=== PATIENT | male | born 1945 | race Caucasian/White ===

== ENCOUNTER → 2016-09-09 | Outpatient (CLI) | payer BC ==
[~2016-09-09] MED LIST: ALL100 PO; COEN10CA5 PO; FRS/40 PO; GLUC10007 PO; LSN/10125 PO; NORT75CA2 PO; POLYSOL4 OP; POTA1080 PO; PREG1CAP70 PO; PRVC/20 PO; TAPE50TA5 PO; WARF10TA4 PO
[2016-09-09 14:53] LABS: BLOOD UREA NITROGEN 20 mg/dl (7-18); BUN/CREATININE RATIO 16.6 (10-20); CALCIUM 8.5 mg/dl (8.5-10.1); CARBON DIOXIDE 31 mmol/L (21-32); CHLORIDE 104 mmol/L (98-107); GLUCOSE 129 mg/dl (70-99); SODIUM 140 mmol/L (136-145)
== END | disposition home or self-care (01) ==
LOC: C.LAB 13:37
PROVIDERS: ATTEND Nurse Practitioner Adult Health
DX: N20.0 Calculus of kidney (principal); N20.1 Calculus of ureter

== ENCOUNTER → 2016-09-13 | Outpatient (CLI) | payer BC ==
--- NOTE | 2016-09-13 10:00 | DIAGNOSTIC IMAGING REPORT ---
CHEST CT WITHOUT CONTRAST CT DOSE: 675.94 mGycm HISTORY: Pain. Pulmonary nodule. 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 COMPARISON: 02/28/2016 FINDINGS: Stable pleural-based density anterior aspect right upper lung. Diameter of the root of of the aorta is unchanged at 4.6 cm at maximum. No significant hilar or mediastinal adenopathy. Mild right and to a lesser extent left basilar atelectatic change improved from the prior exam. No new or interval finding. IMPRESSION: 1. Stable distention root of the aorta at 4.6 cm. 2. Stable pleural-based density anterior aspect right upper lung. 3. Mild bibasilar atelectatic change considered stable. 4. No new interval or progressive process. Electronically signed by: Eddy Stewart M.D. 09/13/2016 9:58 AM Dictated Date/Time: 09/13/2016 9:50 AM
== END | disposition home or self-care (01) ==
LOC: C.CTS 09:11
PROVIDERS: ATTEND Internal Medicine Interventional Cardiology
DX: I77.810 Thoracic aortic ectasia (principal)

== ENCOUNTER → 2016-09-13 | Outpatient (CLI) | payer BC ==
--- NOTE | 2016-09-13 10:12 | DIAGNOSTIC IMAGING REPORT ---
CT OF THE ABDOMEN AND PELVIS WITHOUT CONTRAST CLINICAL HISTORY: Nephrolithiasis. COMPARISON STUDY: CT of the abdomen and pelvis February 28, 2016. TECHNIQUE: Axial images of the abdomen and pelvis were obtained without IV contrast. Images were reviewed in the axial, sagittal, and coronal planes. FINDINGS: The chest will be reported separately. Punctate bilateral renal calculi are more conspicuous on exam of February 28, 2016. There are no ureteral calculi. There is no hydronephrosis. Perinephric infiltration is unchanged. Evaluation of the remainder of the abdomen and pelvis is suboptimal on this unenhanced exam. There is fatty infiltration of the liver. The spleen, adrenal glands and pancreas are unremarkable. There is no lymphadenopathy. There is colonic diverticulosis without evidence for acute diverticulitis. There were postsurgical findings within the lumbosacral spine. There are no suspicious osseous lesions. IMPRESSION: 1. Punctate bilateral renal calculi which are more conspicuous on prior exam of February 28, 2016. No ureteral calculi or hydronephrosis. 2. Colonic diverticulosis without evidence of acute diverticulitis. Electronically signed by: Nino Oakes M.D. 09/13/2016 10:10 AM Dictated Date/Time: 09/13/2016 10:01 AM
== END | disposition home or self-care (01) ==
LOC: C.CTS 09:14
PROVIDERS: ATTEND Urology
DX: N20.0 Calculus of kidney (principal); K57.90 Diverticulosis of intestine, part unspecified, without perforation or abscess without bleeding; I77.810 Thoracic aortic ectasia

== ENCOUNTER 2020-07-08 09:51 | Inpatient (IN) ==
[2020-07-08] MEDS ORDERED: ONDANSETRON INJ 2 MG/ML 2 ML VIAL IV STA (10:21)
[2020-07-08] MEDS ORDERED: SODIUM CHLORIDE 0.9% 1000ML 1,000 ML IV SCH (10:30)
--- NOTE | 2020-07-08 10:42 | Emergency Department Note ---
History of Present Illness General Chief Complaint: Shortness of Breath/Dyspnea Stated Complaint: COVID +,SOB Time Seen by Provider: 07/08/20 10:11 Source: patient Mode of arrival: ambulatory Limitations: no limitations History of Present Illness Provider Complaint: shortness of breath Onset (ago): day(s) (10) Severity: moderate Consistency/Duration: + constant Maximum Pain Intensity: 6 Current Pain Intensity: 6 Relieved By: + oxygen and + upright position Exacerbated By: + other (heat) Context: + recent illness (Covid-19 diagnosis 06/30/2020) Known history of: PE Associated symptoms: + cough and + nausea/vomiting Treatment prior to arrival: none HPI Narrative: This 74-year-old male patient presents to the emergency department today for evaluation of "I just cannot kick this Covid". The patient states he developed fever, cough, body aches, shortness of breath on 06/28/2020. He states he was seen here on 06/30 for evaluation of his symptoms and diagnosed with COVID-19. He states he was sent home with a pulse oximeter, albuterol inhaler, and azithromycin. He completed the course of antibiotics and continues to feel short of breath with body aches and nausea. He states his keeps the house very warm and this seems to be flaring up his symptoms. When he is in the cool air, the symptoms improve. He denies any specific pain, but does rep ort nausea and generalized abdominal discomfort. No diarrhea or constipation. He does have a decreased appetite and has been having difficulty drinking enough fluids. He denies any headache or dizziness. No hemoptysis. He does have history of PE and is on warfarin. His last INR completed last week was 1.6. He did have an adjustment made on 07/06/2020 by [facility] where he was to skip his 7.5 mg dose of warfarin. Related Data Home oxygen amount: none Home Medications Medication Instructions Recorded Confirmed Type lisinopril-hydrochlorothiazide 1 tab PO QAM #0 tab 08/31/12 07/08/20 History peg 400-propylene glycol [Systane 1 drp OPHTHALMIC (EYE) QID PRN #0 02/28/16 07/08/20 History (propylene glycol)] ml pravastatin 20 mg PO HS #0 02/28/16 07/08/20 History furosemide [Lasix] 40 mg PO DAILY PRN #0 tab 09/08/16 07/08/20 History pregabalin 150 mg capsule 300 mg PO BID #360 cap 12/24/19 07/08/20 Rx cholecalciferol (vitamin D3) 1,250 1,250 mcg PO MONTHLY #12 cap 01/29/20 07/08/20 Rx mcg (50,000 unit) capsule potassium citrate 10 mEq (1,080 1,080 mg PO BID 90 Days #180 tab 03/19/20 07/08/20 Rx mg) tablet,extended release warfarin 5 mg tablet See Rx Instructions PO UD tab 05/13/20 07/08/20 History allopurinol 100 mg tablet 100 mg PO BID 90 Days #180 tab 06/04/20 07/08/20 Rx albuterol sulfate 3 inh INHALATION Q6H PRN #8 g 06/30/20 07/08/20 Rx Allergies Allergy/AdvReac Type Severity Reaction Status Date / Time gabapentin Allergy Intermediate Rash Verified 07/08/20 11:18 tramadol Allergy Intermediate Rash and Verified 07/08/20 11:18 itchiness carbamazepine Allergy Unknown Unknown Verified 07/08/20 11:18 Cipro Allergy Unknown Unknown Verified 02/28/16 22:30 ciprofloxacin Allergy Unknown Unknown Verified 07/08/20 11:18 hydrocodone Allergy Unknown Unknown Verified 07/08/20 11:18 oxycodone AdvReac Mild ITCH; PT Verified 07/08/20 11:18 STATES HE TOLERATES PERCOCET Past Med/Surg History Medical History Chronic kidney disease, stage III (moderate) Hypertension Prostate cancer screening Stone in kidney Trigeminal neuralgia Ureteral stone Vitamin D deficiency Surgical History History of back surgery History of cataract surgery History of cystoscopy History of knee replacement History of shoulder surgery History of sinus surgery Family History Family/Other Nephrolithiasis Heart disease Diabetes Social History Smoking Status: Never smoker Preferred Language: Tunisian current occupational status: retired Feels Safe at Home: Yes Seatbelt Use: always Review of Systems A total of 10 systems reviewed and were otherwise negative Physical Exam Vital Signs: Vital Signs - 24 hr 07/08/20 09:51 07/08/20 09:58 07/08/20 10:49 Temperature 37.6 C H Temperature Source Temporal Artery Sc an Pulse Rate 92 H 87 Pulse Rate from Sp O2 Sensor 89 Respiratory Rate 22 25 H Respiratory Effort / Characteristics Short of Breath Respiratory Depth Respiratory Patter n Blood Pressure 128/82 Blood Pressure Shahnaz n 97 Blood Pressure Pos ition Sitting Pulse Oximetry 89 L 90 94 Oxygen Delivery Me thod Room Air Room Air Nasal Cannula Oxygen Flow Rate 2 Sepsis Recent Feve r Within 48 Hours No Sepsis New/Unexpla ined Change in Men rosanne Status N/A Sepsis Action Take n by Nursing No Action Required 07/08/20 10:50 07/08/20 10:51 07/08/20 11:00 Temperature Temperature Source Pulse Rate 88 83 Pulse Rate from Sp O2 Sensor 88 84 Respiratory Rate 17 15 Respiratory Effort / Characteristics Non-Labored Sponta neous Respiratory Depth Normal Respiratory Patter n Regular Blood Pressure Blood Pressure Shahnaz n Blood Pressure Pos ition Pulse Oximetry 94 94 93 Oxygen Delivery Me thod Nasal Cannula Nasal Cannula Nasal Cannula Oxygen Flow Rate 2 2 2 Sepsis Recent Feve r Within 48 Hours Sepsis New/Unexpla ined Change in Men rosanne Status Sepsis Action Take n by Nursing 07/08/20 11:04 07/08/20 11:10 07/08/20 11:20 Temperature Temperature Source Pulse Rate 84 81 80 Pulse Rate from Sp O2 Sensor 84 82 80 Respiratory Rate 16 17 16 Respiratory Effort / Characteristics Respiratory Depth Respiratory Patter n Blood Pressure 133/75 Blood Pressure Shahnaz n 94 Blood Pressure Pos ition Pulse Oximetry 93 94 94 Oxygen Delivery Me thod Nasal Cannula Nasal Cannula Nasal Cannula Oxygen Flow Rate 2 2 2 Sepsis Recent Feve r Within 48 Hours Sepsis New/Unexpla ined Change in Men rosanne Status Sepsis Action Take n by Nursing 07/08/20 11:30 07/08/20 11:31 07/08/20 11:40 Temperature Temperature Source Pulse Rate 79 84 88 Pulse Rate from Sp O2 Sensor 80 85 83 Respiratory Rate 12 16 16 Respiratory Effort / Characteristics Respiratory Depth Respiratory Patter n Blood Pressure 148/77 H Blood Pressure Shahnaz n 100 Blood Pressure Pos ition Pulse Oximetry 95 95 96 Oxygen Delivery Me thod Nasal Cannula Nasal Cannula Nasal Cannula Oxygen Flow Rate 2 2 2 Sepsis Recent Feve r Within 48 Hours Sepsis New/Unexpla ined Change in Men rosanne Status Sepsis Action Take n by Nursing 07/08/20 11:50 07/08/20 12:00 07/08/20 12:01 Temperature Temperature Source Pulse Rate 82 92 H 85 Pulse Rate from Sp O2 Sensor 82 92 H 84 Respiratory Rate 17 21 16 Respiratory Effort / Characteristics Respiratory Depth Respiratory Patter n Blood Pressure 163/81 H Blood Pressure Shahnaz n 108 Blood Pressure Pos ition Pulse Oximetry 90 93 91 Oxygen Delivery Me thod Nasal Cannula Nasal Cannula Nasal Cannula Oxygen Flow Rate 2 2 2 Sepsis Recent Feve r Within 48 Hours Sepsis New/Unexpla ined Change in Men rosanne Status Sepsis Action Take n by Nursing 07/08/20 12:10 07/08/20 12:20 07/08/20 12:30 Temperature Temperature Source Pulse Rate 88 80 85 Pulse Rate from Sp O2 Sensor 83 82 88 Respiratory Rate 15 16 16 Respiratory Effort / Characteristics Respiratory Depth Respiratory Patter n Blood Pressure 155/86 H Blood Pressure Shahnaz n 109 Blood Pressure Pos ition Pulse Oximetry 89 L 87 L 88 L Oxygen Delivery Me thod Room Air Room Air Room Air Oxygen Flow Rate Sepsis Recent Feve r Within 48 Hours Sepsis New/Unexpla ined Change in Men rosanne Status Sepsis Action Take n by Nursing 07/08/20 12:31 07/08/20 12:40 07/08/20 12:50 Temperature Temperature Source Pulse Rate 85 88 90 Pulse Rate from Sp O2 Sensor 86 89 90 Respiratory Rate 14 17 17 Respiratory Effort / Characteristics Respiratory Depth Respiratory Patter n Blood Pressure Blood Pressure Shahnaz n Blood Pressure Pos ition Pulse Oximetry Oxygen Delivery Me thod Nasal Cannula Nasal Cannula Nasal Cannula Oxygen Flow Rate 2 2 2 Sepsis Recent Feve r Within 48 Hours Sepsis New/Unexpla ined Change in Men rosanne Status Sepsis Action Take n by Nursing 07/08/20 13:12 07/08/20 13:20 07/08/20 13:30 Temperature Temperature Source Pulse Rate 92 H 86 87 Pulse Rate from Sp O2 Sensor 92 H 87 86 Respiratory Rate 18 16 15 Respiratory Effort / Characteristics Respiratory Depth Respiratory Patter n Blood Pressure Blood Pressure Shahnaz n Blood Pressure Pos ition Pulse Oximetry 95 94 95 Oxygen Delivery Me thod Nasal Cannula Nasal Cannula Nasal Cannula Oxygen Flow Rate 2 2 2 Sepsis Recent Feve r Within 48 Hours Sepsis New/Unexpla ined Change in Men rosanne Status Sepsis Action Take n by Nursing 07/08/20 13:40 07/08/20 13:50 07/08/20 14:00 Temperature Temperature Source Pulse Rate 86 82 84 Pulse Rate from Sp O2 Sensor 87 82 84 Respiratory Rate 17 22 15 Respiratory Effort / Characteristics Respiratory Depth Respiratory Patter n Blood Pressure Blood Pressure Shahnaz n Blood Pressure Pos ition Pulse Oximetry 94 95 95 Oxygen Delivery Me thod Nasal Cannula Nasal Cannula Nasal Cannula Oxygen Flow Rate 2 2 2 Sepsis Recent Feve r Within 48 Hours Sepsis New/Unexpla ined Change in Men rosanne Status Sepsis Action Take n by Nursing 07/08/20 14:10 07/08/20 14:20 07/08/20 14:30 Temperature Temperature Source Pulse Rate 87 85 83 Pulse Rate from Sp O2 Sensor 87 84 84 Respiratory Rate 21 18 17 Respiratory Effort / Characteristics Respiratory Depth Respiratory Patter n Blood Pressure Blood Pressure Shahnaz n Blood Pressure Pos ition Pulse Oximetry 95 95 95 Oxygen Delivery Me thod Nasal Cannula Nasal Cannula Nasal Cannula Oxygen Flow Rate 2 2 2 Sepsis Recent Feve r Within 48 Hours Sepsis New/Unexpla ined Change in Men rosanne Status Sepsis Action Take n by Nursing 07/08/20 14:54 07/08/20 15:00 Temperature Temperature Source Pulse Rate Pulse Rate from Sp O2 Sensor 83 80 Respiratory Rate Respiratory Effort / Characteristics Respiratory Depth Respiratory Patter n Blood Pressure Blood Pressure Shahnaz n Blood Pressure Pos ition Pulse Oximetry 92 94 Oxygen Delivery Me thod Nasal Cannula Nasal Cannula Oxygen Flow Rate 2 2 Sepsis Recent Feve r Within 48 Hours Sepsis New/Unexpla ined Change in Men rosanne Status Sepsis Action Take n by Nursing Physical Exam: VITALS: Blood Pressure 155/86, P 83, R 17, T 37.6C, O2 sat 88% on RA GENERAL: Well appearing, in no acute distress. Non-diaphoretic, well-developed, well-nourished. SKIN: No rashes, erythema, edema, or bruising. Good cap refill. HEAD: Normocephalic atraumatic. EYES: Conjunctivae without injection, sclerae without icterus. NECK: Supple without nuchal rigidity. No lymphadenopathy. HEART: Regular rate and rhythm without murmurs gallops or rubs. LUNGS: Pt. able to speak in full sentences without difficulty. No apparent d istress. Clear to auscultation bilaterally without wheezes, rales or rhonchi. No retractions or accessory muscle use. MUSCULOSKELETAL: Full range of motion without joint tenderness in all extremities. Normal gait. NEURO: Patient was alert and oriented to person place and time. No focal neurological deficits. Course Course The patient was seen and evaluated as above. Patient placed on 2 L oxygen via nasal cannula by myself at bedside given the hypoxia of 88% on room air. An order was placed for continuous cardiac monitoring. The monitor shows a normal sinus rhythm at a rate of 83 bpm. IV access obtained, labs drawn. Patient medicated with IV fluids. Imaging performed and reviewed by myself and radiologist as noted. Labs reviewed by myself. I discussed the findings with the patient at bedside. We did discuss benefits versus risks associated with admission versus discharge to home with oxygen therapy. Ultimately, utilizing shared decision making, we did elect to admit the patient. I discussed the case with the vending manager. I discussed the case with Dr. Farah[facility]. Please see his dictation regarding ongoing management care of this patient. Administered Medications Discontinued Medications Dexamethasone (Dexamethasone Sod Inj 4 Mg/Ml Vial) 6 mg IV ONE STA Stop: 07/08/20 15:44 Last Admin: 07/08/20 16:27 Dose: 6 mg Documented by: [id number] Sodium Chloride (Nss 1000ml) 1,000 mls @ 999 mls/hr IV .Q1H1M KELSY Stop: 07/08/20 11:30 Last Infusion: 07/08/20 12:42 Dose: 0 mls/hr Documented by: [id number] Admin: 07/08/20 11:01 Dose: 999 mls/hr Documented by: [id number] Ioversol (Optiray 320 125ml) 118 ml IV ONCE ONE Stop: 07/08/20 13:05 Last Admin: 07/08/20 13:05 Dose: 118 ml Documented by: [id number] Ondansetron HCl (Ondansetron Inj 2 Mg/Ml 2 Ml Vial) 4 mg IV NOW STA Stop: 07/08/20 10:22 Last Admin: 07/08/20 11:01 Dose: 4 mg Documented by: [id number] Medical Decision Making Differential Diagnosis + community acquired pneumonia, + asthma with exacerbation, + pulmonary embolism, + COPD, + bronchitis, + pneumothorax, + pneumonia, + pleural effusion, + CHF, + ACS and + aspiration In addition to the above, COVID-19 was considered. Medical Records Attestation: I reviewed the patient's medical records. Home Medications Current Medication List: was personally reviewed by me Laboratory Data Attestation: I reviewed the patient's lab results. No leukocytosis, anemia, thrombocytopenia. Renal, hepatic function, and electrolytes without significant abnormality. INR 1.3, subtherapeutic. Troponin negative. Result diagrams: 07/08/20 11:00 07/08/20 11:00 Lab Results 07/08/20 07/08/20 07/08/20 Range/Units 11:00 11:00 11:00 WBC 4.91 (4.8-10.8) K/uL RBC 4.56 L (4.7-6.1) M/uL Hgb 15.0 (14.0-18.0) g/dL POC Hgb (14.0-18.0) g/dl Hct 43.3 (42-52) % POC Hct (42-52) % MCV 95.0 (80-100) fL MCH 32.9 (25-34) pg MCHC 34.6 (32-36) g/dL RDW Std Deviation 49.5 H (36.4-46.3) fL RDW Coeff of Lisbeth 14.2 (11.5-14.5) % Plt Count 160 (130-400) K/uL MPV 9.2 (7.4-10.4) fL Immature Gran % (Auto) 0.2 % Neut % (Auto) 59.1 % Lymph % (Auto) 24.8 % [place] % (Auto) 15.1 % Eos % (Auto) 0.6 % Baso % (Auto) 0.2 % Neut # (Auto) 2.90 (1.4-6.5) K/uL Lymph # (Auto) 1.22 (1.2-3.4) K/uL [place] # (Auto) 0.74 H (0.11-0.59) K/uL Eos # (Auto) 0.03 (0-0.5) K/uL Baso # (Auto) 0.01 (0-0.2) K/uL Immature Gran # (Auto) 0.01 (0.00-0.02) K/uL PT 12.5 H (9.0-12.0) Seconds INR 1.3 H (0.9-1.1) APTT 31.9 H (21.0-31.0) Seconds PTT Ratio 1.2 POC Sodium (135-144) mmol/L Sodium 137 (136-145) mmol/L POC Potassium (3.3-5.0) mmol/L Potassium 4.1 (3.5-5.1) mmol/L POC Chloride (101-112) mmol/L Chloride 104 (98-107) mmol/L Carbon Dioxide 26 (21-32) mmol/L POC Total CO2 (24-31) mmol/L Anion Gap 7.0 (3-11) POC Anion Gap (16-25) mmol/L POC BUN (7-18) mg/dl BUN 27 H (7-18) mg/dl Creatinine 1.32 (0.6-1.4) mg/dl POC Creatinine (0.6-1.3) mg/dl Est Cr Clr Drug Dosing 60.1 ml/min Est GFR ( Amer) 60.7 Est GFR (Non-Af Amer) 52.4 BUN/Creatinine Ratio 20.6 H (10-20) Glucose 110 H (70-99) mg/dl POC Glucose (other) (70-99) mg/dl Calcium 9.1 (8.5-10.1) mg/dl POC Ioniz Calcium Laura (1.12-1.32) mmol/l Total Bilirubin 0.9 (0.2-1) mg/dl AST 61 H (15-37) U/L ALT 38 (12-78) U/L Alkaline Phosphatase 89 (45-117) U/L Troponin I (0-0.045) ng/ml Total Protein 8.0 (6.4-8.2) gm/dl Albumin 3.2 L (3.4-5.0) gm/dl Globulin 4.8 H (2.5-4.0) gm/dl Albumin/Globulin Ratio 0.7 L (0.9-2) 07/08/20 07/08/20 Range/Units 11:00 11:09 WBC (4.8-10.8) K/uL RBC (4.7-6.1) M/uL Hgb (14.0-18.0) g/dL POC Hgb 15.0 (14.0-18.0) g/dl Hct (42-52) % POC Hct 44 (42-52) % MCV (80-100) fL MCH (25-34) pg MCHC (32-36) g/dL RDW Std Deviation (36.4-46.3) fL RDW Coeff of Lisbeth (11.5-14.5) % Plt Count (130-400) K/uL MPV (7.4-10.4) fL Immature Gran % (Auto) % Neut % (Auto) % Lymph % (Auto) % [place] % (Auto) % Eos % (Auto) % Baso % (Auto) % Neut # (Auto) (1.4-6.5) K/uL Lymph # (Auto) (1.2-3.4) K/uL [place] # (Auto) (0.11-0.59) K/uL Eos # (Auto) (0-0.5) K/uL Baso # (Auto) (0-0.2) K/uL Immature Gran # (Auto) (0.00-0.02) K/uL PT (9.0-12.0) Seconds INR (0.9-1.1) APTT (21.0-31.0) Seconds PTT Ratio POC Sodium 137 (135-144) mmol/L Sodium (136-145) mmol/L POC Potassium 4.2 (3.3-5.0) mmol/L Potassium (3.5-5.1) mmol/L POC Chloride 101 (101-112) mmol/L Chloride (98-107) mmol/L Carbon Dioxide (21-32) mmol/L POC Total CO2 27 (24-31) mmol/L Anion Gap (3-11) POC Anion Gap 15.0 L (16-25) mmol/L POC BUN 27 H (7-18) mg/dl BUN (7-18) mg/dl Creatinine (0.6-1.4) mg/dl POC Creatinine 1.2 (0.6-1.3) mg/dl Est Cr Clr Drug Dosing ml/min Est GFR ( Amer) Est GFR (Non-Af Amer) BUN/Creatinine Ratio (10-20) Glucose (70-99) mg/dl POC Glucose (other) 114 H (70-99) mg/dl Calcium (8.5-10.1) mg/dl POC Ioniz Calcium Laura 1.12 (1.12-1.32) mmol/l Total Bilirubin (0.2-1) mg/dl AST (15-37) U/L ALT (12-78) U/L Alkaline Phosphatase (45-117) U/L Troponin I < 0.015 (0-0.045) ng/ml Total Protein (6.4-8.2) gm/dl Albumin (3.4-5.0) gm/dl Globulin (2.5-4.0) gm/dl Albumin/Globulin Ratio (0.9-2) Imaging Data Radiologist's Impression: CT angio chest PE protocol CT DOSE: 531.44 mGycm HISTORY: 74 years-old Male with Dyspnea. Acute shortness of breath with cough TECHNIQUE: Multiple CTA images of the chest were obtained after the intravenous administration of 118 ml Optiray 320. Coronal and sagittal MIPS were obtained from the axial data set and were submitted for review. All measurements were obtained according to NASCET criteria. A dose lowering technique was utilized adhering to the principles of ALARA. COMPARISON: CTA chest dated 01/15/2020 FINDINGS: CTA: Mild cardiomegaly. Moderate coronary artery calcifications. Fusiform dilation of the ascending thoracic aorta is unchanged, 4.4 x 4.4 cm. No dissection. Moderate mixed plaque. Patency of the imaged great vessels. Chronic linear nonocclusive filling defect is noted within a segmental branch of the right lower lobe, image 69 series 4. No acute pulmonary emboli identified. CT CHEST: Unremarkable thyroid. Centrally calcified prominent and mildly enlarged mediastinal lymph nodes are present. 1.2 cm right paratracheal lymph node on image 172 series 4 previously measured 1.1 cm. The inferior lung bases are partially imaged. No pneumothorax or pleural effusion. Patchy bilateral groundglass opacities. Subpleural 2 cm soft tissue mass within the anterior right mid hemithorax on image 107 series 4 is unchanged. Central airways are patent. No acute process of the imaged upper abdomen. Mild marginal nodularity of liver redemonstrated suggestive of cirrhosis. Unremarkable soft tissues. Degenerative changes of the spine and left shoulder. Right shoulder total joint arthroplasty. IMPRESSION: 1. Patchy bilateral groundglass opacities are suspicious for viral pneumonia. Correlate with Covid status. 2. Mild mediastinal adenopathy. 3. Cardiomegaly without evidence of acute pulmonary emboli. Unchanged small chronic nonocclusive linear pulmonary embolus within the right lower lobe. 4. 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 5. 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 ACT 112: Negative or not required by law. The above report was generated using voice recognition software. It may contain grammatical, syntax or spelling errors. Electronically signed by: Puma George M.D. 07/08/2020 1:26 PM ECG Data Attestation: I personally reviewed and interpreted this ECG as follows: Interpretation: Normal sinus rhythm with ventricular rate of 85 bpm. Left axis deviation. No ST elevation or depression. No T wave inversion. When compared to EKG of 06/30/2020, no significant change was found. Blood Pressure Blood Pressure Findings: Elevated blood pressure Blood Pressure Disposition: elevated BP felt to be situational MDM Narrative This 74-year-old male patient presents to the emergency department today for evaluation of shortness of breath in the setting of COVID-19. Patient shortness of breath and hypoxia have worsened since his diagnosis last week. He was proximally 10 days into illness. He denies any associated chest pain. There is some nausea and generalized abdominal discomfort which responded nicely to IV Zofran. Patient was hydrated in the emergency department. He did require some oxygen due to hypoxia of 88% on room air. He will be admitted to the hospitalist service for management of the hypoxia. Please see hospitalist dictation regarding ongoing management care of this patient The chart was completed utilizing [employer] voice recognition software. G rammatical errors, random word insertions, pronoun errors, and incomplete sentences are an occasional consequence of this system due to software limitations, ambient noise, and hardware issues. Any formal questions or concerns about the content, text, or information contained within the body of this dictation should be directly addressed to the provider for clarification. Impression & Plan COVID-19, Hypoxia Discharge Plan Visit Data Chief Complaint: Shortness of Breath/Dyspnea Stated Complaint: COVID +,SOB ED Provider: Juan José Turner ED Midlevel Provider: Calista Narayanan Discharge Problem: COVID-19, Hypoxia Patient Disposition: Admitted As Inpatient Condition: Good Forms Stand Alone Forms: [facility], [facility] Emergency Department, Important Visit Information Prescriptions Prescriptions: No Action warfarin 5 mg tablet See Rx Instructions PO UD RF: 0 lisinopril-hydrochlorothiazide 10-12.5 mg Tablet 1 tab PO QAM Qty: 0 RF: 0 pravastatin 20 mg Tablet 20 mg PO HS Qty: 0 RF: 0 Systane (propylene glycol) 0.4-0.3 % Drops 1 drp ophthalmic (eye) QID PRN (Reason: Dry Eye(S)) Qty: 0 RF: 0 furosemide [Lasix] 40 mg Tablet 40 mg PO DAILY PRN (Reason: Edema) Qty: 0 RF: 0 pregabalin [Lyrica] 150 mg capsule 300 mg PO BID Qty: 360 RF: 3 potassium citrate 10 mEq (1,080 mg) tablet extended release 1,080 mg PO BID 90 Days Qty: 180 RF: 1 allopurinol 100 mg tablet 100 mg PO BID 90 Days Qty: 180 RF: 1 cholecalciferol (vitamin D3) 1,250 mcg (50,000 unit) capsule 1,250 mcg PO MONTHLY Qty: 12 RF: 0 albuterol sulfate 90 mcg/actuation HFA aerosol inhaler 3 inh inhalation Q6H PRN (Reason: shortness of breath or wheezing) Qty: 8 RF: 0 Referrals Referrals: Stef Encarnacion MD [Primary Care Provider] -
[2020-07-08 11:12] LABS: Basophils # (auto) 0.01 K/uL (0-0.2); Basophils % (auto) 0.2 %; Eosinophils # (auto) 0.03 K/uL (0-0.5); Eosinophils % (auto) 0.6 %; Hematocrit (blood only) 43.3 % (42-52); Immature Granulocytes # (auto) 0.01 K/uL (0.00-0.02); Immature Granulocytes % (auto) 0.2 %; Lymphocytes # (auto) 1.22 K/uL (1.2-3.4); Lymphocytes % (auto) 24.8 %; Mean Corpuscular Hemoglobin 32.9 pg (25-34); Mean Corpuscular Hgb Conc 34.6 g/dL (32-36); Mean Platelet Volume 9.2 fL (7.4-10.4); Monocytes # (auto) 0.74 K/uL (0.11-0.59); Monocytes % (auto) 15.1 %; Neutrophils % (auto) 59.1 %; Platelet Count 160 K/uL (130-400); RDW Coefficient of Variation 14.2 % (11.5-14.5); RDW Standard Deviation 49.5 fL (36.4-46.3); Red Blood Count 4.56 M/uL (4.7-6.1); White Blood Count 4.91 K/uL (4.8-10.8)
[2020-07-08 11:22] LABS: iSTAT Creatinine 1.2 mg/dl (0.6-1.3); iSTAT Ionized Calcium 1.12 mmol/l (1.12-1.32); iSTAT Potassium 4.2 mmol/L (3.3-5.0)
[2020-07-08 11:27] LABS: INR 1.3 (0.9-1.1); Partial Thromboplastin Ratio 1.2; Partial Thromboplastin Time 31.9 Seconds (21.0-31.0); Prothrombin Time 12.5 Seconds (9.0-12.0)
[2020-07-08 11:35] LABS: Albumin Level 3.2 gm/dl (3.4-5.0); BUN Creatinine Ratio 20.6 (10-20); Calcium 9.1 mg/dl (8.5-10.1); Creatinine Clr Calc Pharmacy 60.1 ml/min; Est GFR (African American) 60.7; Est GFR (Non-African American) 52.4; Potassium 4.1 mmol/L (3.5-5.1)
[2020-07-08 11:38] LABS: Albumin Globulin Ratio 0.7 (0.9-2); Bilirubin,Total 0.9 mg/dl (0.2-1); Globulin 4.8 gm/dl (2.5-4.0)
[2020-07-08] MEDS ORDERED: OPTIRAY 320 125ml IV ONE (13:04)
--- NOTE | 2020-07-08 13:27 | CT Scan Report ---
CT angio chest PE protocol CT DOSE: 531.44 mGycm HISTORY: 74 years-old Male with Dyspnea. Acute shortness of breath with cough TECHNIQUE: Multiple CTA images of the chest were obtained after the intravenous administration of 118 ml Optiray 320. Coronal and sagittal MIPS were obtained from the axial data set and were submitted for review. All measurements were obtained according to NASCET criteria. A dose lowering technique w as utilized adhering to the principles of ALARA. COMPARISON: CTA chest dated 01/15/2020 FINDINGS: CTA: Mild cardiomegaly. Moderate coronary artery calcifications. Fusiform dilation of the ascending thorac ic aorta is unchanged, 4.4 x 4.4 cm. No dissection. Moderate mixed plaque. Patency of the imaged grea t vessels. Chronic linear nonocclusive filling defect is noted within a segmental branch of the right lower lobe, image 69 series 4. No acute pulmonary emboli identified. CT CHEST: Unremarkable thyroid. Centrally calcified prominent and mildly enlarged mediastinal lymph nodes are p resent. 1.2 cm right paratracheal lymph node on image 172 series 4 previously measured 1.1 cm. The in ferior lung bases are partially imaged. No pneumothorax or pleural effusion. Patchy bilateral groundg lass opacities. Subpleural 2 cm soft tissue mass within the anterior right mid hemithorax on image 10 7 series 4 is unchanged. Central airways are patent. No acute process of the imaged upper abdomen. Mild marginal nodularity of liver redemonstrated sugges tive of cirrhosis. Unremarkable soft tissues. Degenerative changes of the spine and left shoulder. Ri ght shoulder total joint arthroplasty. IMPRESSION: 1. Patchy bilateral groundglass opacities are suspicious for viral pneumonia. Correlate with Covid st atus. 2. Mild mediastinal adenopathy. 3. Cardiomegaly without evidence of acute pulmonary emboli. Unchanged small chronic nonocclusive line ar pulmonary embolus within the right lower lobe. 4. 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 5. 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 ACT 112: Negative or not required by law. The above report was generated using voice recognition software. It may contain grammatical, syntax o r spelling errors. Electronically signed by: Puma George M.D. 07/08/2020 1:26 PM
[2020-07-08] MEDS ORDERED: DEXAMETHASONE SOD INJ 4 MG/ML VIAL IV STA (15:43)
--- NOTE | 2020-07-08 15:43 | History & Physical Report ---
Date of Service July 08, 2020 Assessment & Plan (1) COVID-19: Dexamethasone 6 mg IV daily Covid isolation precautions (2) Hypoxia: Without respiratory failure Aim O2 sats > 90% Suspect secondary to COVID-[address], procalcitonin negative and white blood count differential not suggestive of bacterial pneumonia. No pulmonary embolism on CTA (3) Gastritis: Suspected on exam. In the setting of dexamethasone use will start famotidine 20 mg p.o. twice daily. (4) Hypertension: Hold antihypertensives on admission. Likely can restart his lisinopril/hydrochlorothiazide if blood pressure stable overnight. (5) History of pulmonary embolism: Continue his usual warfarin dosing despite INR 1.3 as dexamethasone likely to increase this. Monitor INR daily History of Present Illness Chief Complaint: Shortness of breath, generalized weakness and fatigue Primary Care Provider: Stef Encarnacion MD Tio Maldonado is a 74-year-old male who presents to the ER with known COVID-19 pneumonia diagnosed on his previous ER visit 8 days ago. Symptoms started 10 days ago. He reports fever, chills, shortness of breath, cough, loss of taste and smell, myalgias, mild headache, diarrhea, poor appetite, insomnia, eyes burning, generalized weakness and fatigue. He denies any chest or abdominal pain. He reports to the ER today on advice of his PCP due to concern of subtherapeutic INR and possible concern of pulmonary embolism versus secondary bacterial infection as his symptoms have progressively got worse. He denies any double worsening of illness. In the ER CT angiogram for PE shows patchy bilateral groundglass opacities, no pulmonary emboli, stable dilation of aorta at 4.4 cm and stable 2 cm subpleural mass. He now has a slight oxygen requirements therefore was referred to medicine for admission and ongoing management of COVID-19 pneumonia. Allergies Allergy/AdvReac Type Severity Reaction Status Date / Time gabapentin Allergy Intermediate Rash Verified 07/08/20 11:18 tramadol Allergy Intermediate Rash and Verified 07/08/20 11:18 itchiness carbamazepine Allergy Unknown Unknown Verified 07/08/20 11:18 Cipro Allergy Unknown Unknown Verified 02/28/16 22:30 ciprofloxacin Allergy Unknown Unknown Verified 07/08/20 11:18 hydrocodone Allergy Unknown Unknown Verified 07/08/20 11:18 oxycodone AdvReac Mild ITCH; PT Verified 07/08/20 11:18 STATES HE TOLERATES PERCOCET Home Medications Medication Instructions Recorded Confirmed Type lisinopril-hydrochlorothiazide 1 tab PO QAM #0 tab 08/31/12 07/08/20 History peg 400-propylene glycol [Systane 1 drp OPHTHALMIC (EYE) QID PRN #0 02/28/16 History (propylene glycol)] ml pravastatin 20 mg PO HS #0 02/28/16 07/08/20 History furosemide [Lasix] 40 mg PO DAILY PRN #0 tab 09/08/16 07/08/20 History pregabalin 150 mg capsule 300 mg PO BID #360 cap 12/24/19 07/08/20 Rx cholecalciferol (vitamin D3) 1,250 1,250 mcg PO MONTHLY #12 cap 01/29/20 07/08/20 Rx mcg (50,000 unit) capsule potassium citrate 10 mEq (1,080 1,080 mg PO BID 90 Days #180 tab 03/19/20 07/08/20 Rx mg) tablet,extended release warfarin 5 mg tablet See Rx Instructions PO UD tab 05/13/20 07/08/20 History allopurinol 100 mg tablet 100 mg PO BID 90 Days #180 tab 06/04/20 07/08/20 Rx albuterol sulfate 3 inh INHALATION Q6H PRN #8 g 06/30/20 07/08/20 Rx Past Med/Surg History Medical History Chronic kidney disease, stage III (moderate) Hypertension Prostate cancer screening Stone in kidney Trigeminal neuralgia Ureteral stone Vitamin D deficiency Surgical History History of back surgery History of cataract surgery History of cystoscopy History of knee replacement History of shoulder surgery History of sinus surgery Family History Family/Other Nephrolithiasis Heart disease Diabetes Social History Smoking Status: Never smoker Second Hand Exposure: No; Do You Dip or Chew Tobacco: No; Hx Alcohol Use: No Hx Substance Use: No Preferred Language: Monegasque Communication Ability: Effective Protective Services Case Worker Required: No Beliefs That Will Affect Care: None Current Living Situation: Spouse current occupational status: retired Feels Safe at Home: Yes Safety Concerns: Feels Safe At This Time Seatbelt Use: always Assistive Devices: Oxygen - Continuous Review of Systems Review of Systems: All systems reviewed & are unremarkable except as noted in HPI & below Constitutional: + fever, + chills, + body aches, + fatigue and + weakness Gastrointestinal: + abdominal pain (Epigastric, worse after eating), + belching and + early satiety; no heartburn Physical Exam Constitutional: well developed and well nourished; no acute distress Eyes: + anicteric sclerae; normal pupil size ENMT: external ear and nose normal, oropharynx normal Neck: trachea midline, no thyromegaly Respiratory: normal respiratory effort, lungs clear to auscultation Auscultation: + diminished lung sounds (Mildly diminished at bases bilaterally) Cardiovascular: RRR, no murmur, no edema Gastrointestinal (Abdomen): Inspection/Auscultation: normal bowel sounds; abdomen not distended Percussion/Palpation: + abdomen tender (Mild epigastric) and abdomen soft; no guarding and abdomen not rigid Musculoskeletal: no cyanosis or clubbing, extremities motor strength 5/5 Skin: no rashes, warm and dry Neurologic: moves all extremities and awake; no focal motor deficits and not confused Speech / Cognition: normal speech Psychiatric: A+Ox3, euthymic affect Results & Data Results & Data ([facility]) Vital Signs (Past 12 Hours) Vital Signs Temp Pulse Resp BP Pulse Ox 07/08/20 15:00 94 07/08/20 14:54 92 07/08/20 14:30 83 17 95 07/08/20 14:20 85 18 95 07/08/20 14:10 87 21 95 07/08/20 14:00 84 15 95 07/08/20 13:50 82 22 95 07/08/20 13:40 86 17 94 07/08/20 13:30 87 15 95 07/08/20 13:20 86 16 94 07/08/20 13:12 92 H 18 95 07/08/20 12:50 90 17 07/08/20 12:40 88 17 07/08/20 12:31 85 14 07/08/20 12:30 85 16 155/86 H 88 L 07/08/20 12:20 80 16 87 L 07/08/20 12:10 88 15 89 L 07/08/20 12:01 85 16 91 07/08/20 12:00 92 H 21 163/81 H 93 07/08/20 11:50 82 17 90 07/08/20 11:40 88 16 96 07/08/20 11:31 84 16 95 07/08/20 11:30 79 12 148/77 H 95 07/08/20 11:20 80 16 94 07/08/20 11:10 81 17 94 07/08/20 11:04 84 16 133/75 93 07/08/20 11:00 83 15 93 07/08/20 10:51 94 07/08/20 10:50 88 17 94 07/08/20 10:49 87 25 H 94 07/08/20 09:58 37.6 C H 92 H 22 128/82 90 07/08/20 09:[address] angio chest PE protocol IMPRESSION: 1. Patchy bilateral groundglass opacities are suspicious for viral pneumonia. Correlate with Covid status. 2. Mild mediastinal adenopathy. 3. Cardiomegaly without evidence of acute pulmonary emboli. Unchanged small chronic nonocclusive linear pulmonary embolus within the right lower lobe. 4. 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 5. 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 Medications Administered ER medications given: NSS 1L bolus ECG Indication: SOB/dyspnea Rate (beats per minute): 86 Rhythm: normal sinus Findings: no acute ischemic change Comparison ECG Date: from (June 30, 2020) Code Status & VTE Plan Code Status Full VTE Prophylaxis Plan VTE Prophylaxis will be ordered: Yes PG Care Time/CCT Total # of Minutes Spent Total Time Spent with Patient: Total time spent is greater than 50% in coordination of care (as documented) at patient's floor/unit and/or counseling patient: Coding Level of Care Code 94572 Initial Inpt Care Lvl 3 Diagnoses COVID-19 U07.1 Hypoxia R09.02 Gastritis K29.70 Hypertension I10 History of pulmonary embolism Z86.711
--- NOTE | 2020-07-08 16:13 | Electrocardiogram Report ---
Test Reason : Blood Pressure : / mmHG Vent. Rate : 085 BPM Atrial Rate : 085 BPM P-R Int : 176 ms QRS Dur : 088 ms QT Int : 382 ms P-R-T Axes : -18 -39 019 degrees QTc Int : 454 ms Poor data quality, interpretation may be adversely affected Normal sinus rhythm Left axis deviation Abnormal ECG When compared with ECG of 30-JUN-2020 13:32, No significant change was found Confirmed by Henry Abdi ([id number]) on 07/08/2020 4:13:16 PM Referred By: REFERRED SELF Confirmed By:Henry Abdi
[2020-07-08] MEDS ORDERED: ACETAMINOPHEN 325 MG TAB PO PRN (18:10)
[2020-07-08] MEDS ORDERED: ERGOCALCIFEROL 50,000 UNITS 1250 MCG CAP PO ONE (19:45)
[2020-07-08] MEDS: PRAVASTATIN SOD 20 MG TAB PO SCH (20:49)
[2020-07-08] MEDS: allopurinoL 100 MG TAB PO SCH (20:50)
[2020-07-08] MEDS: WARFARIN SOD 5 MG TAB PO SCH (20:50)
[2020-07-08] MEDS: POTASSIUM CITRATE 10 MEQ TAB PO SCH (20:51)
[2020-07-08] MEDS: PREGABALIN 150 MG CAP PO SCH (20:52)
[2020-07-08] MEDS: FAMOTIDINE 20 MG TAB PO SCH (22:50)
[2020-07-09 06:56] LABS: Basophils # (auto) 0.01 K/uL (0-0.2); Basophils % (auto) 0.2 %; Hematocrit (blood only) 40.5 % (42-52); Hemoglobin 13.8 g/dL (14.0-18.0); Lymphocytes # (auto) 0.96 K/uL (1.2-3.4); Lymphocytes % (auto) 22.2 %; Mean Corpuscular Hemoglobin 32.2 pg (25-34); Mean Corpuscular Hgb Conc 34.1 g/dL (32-36); Mean Corpuscular Volume 94.6 fL (80-100); Mean Platelet Volume 9.2 fL (7.4-10.4); Monocytes # (auto) 0.39 K/uL (0.11-0.59); Neutrophils # (auto) 2.96 K/uL (1.4-6.5); Neutrophils % (auto) 68.6 %; Platelet Count 169 K/uL (130-400); RDW Coefficient of Variation 14.1 % (11.5-14.5); RDW Standard Deviation 48.5 fL (36.4-46.3); Red Blood Count 4.28 M/uL (4.7-6.1); White Blood Count 4.32 K/uL (4.8-10.8)
[2020-07-09 07:07] LABS: INR 1.2 (0.9-1.1); Prothrombin Time 12.4 Seconds (9.0-12.0)
[2020-07-09 07:12] LABS: Appearance Urine Clear (Clear); Bacteria Urine Automated Negative (Negative); Bilirubin Urine Negative (Negative); Blood Urine Negative (Negative); Color Urine Dark Yellow; Epithelial Cell Urine Auto >30 /lpf (0-5); Glucose Urine UA Negative (Negative); Ketones Urine Trace (Negative); Leukocyte Esterase Urine Negative (Negative); Nitrite Urine Negative (Negative); Protein Urine 1+ (Negative); RBC Urine Automated 0-4 /hpf (0-4); Specific Gravity Urine > 1.045 (1.000-1.030); Urobilinogen Urine Negative (Negative); pH Urine 5.5 (4.5-7.5)
[2020-07-09 07:40] LABS: BUN Creatinine Ratio 24.5 (10-20); C Reactive Protein 2.63 mg/dl (0-0.29); Calcium 8.5 mg/dl (8.5-10.1); Creatinine Clr Calc Pharmacy 66.7 ml/min; Est GFR (African American) 68.8; Est GFR (Non-African American) 59.4; Potassium 4.4 mmol/L (3.5-5.1)
[2020-07-09] MEDS ORDERED: DEXAMETHASONE SOD INJ 4 MG/ML VIAL IV SCH (09:00)
[2020-07-09] MEDS: PREGABALIN 150 MG CAP PO SCH ×2 (09:29→20:56)
[2020-07-09] MEDS: DEXAMETHASONE SOD PHOSPHATE 6 MG in SYRINGE 0 ML IV SCH (09:29)
[2020-07-09] MEDS: allopurinoL 100 MG TAB PO SCH ×2 (09:29→20:56)
[2020-07-09] MEDS: POTASSIUM CITRATE 10 MEQ TAB PO SCH ×2 (09:29→20:56)
[2020-07-09] MEDS: FAMOTIDINE 20 MG TAB PO SCH ×2 (09:29→20:56)
--- NOTE | 2020-07-09 15:07 | Hospitalist Progress Note ---
Date of Service July 09, 2020 Assessment & Plan (1) COVID-19: Dexamethasone 6 mg IV daily x 10 days, day 2 Covid isolation precautions Codeine for cough every 6 hours to help him rest (2) Hypoxia: stable on 2.5L today no increased work of breathing Aim O2 sats > 90% secondary to COVID-[address], procalcitonin negative and white blood count differential not suggestive of bacterial pneumonia. No pulmonary embolism on CTA (3) Gastritis: Suspected on exam. In the setting of dexamethasone use will start famotidine 20 mg p.o. twice daily. (4) Hypertension: Hold antihypertensives on admission. BP stable off of them continue to hold as his intake has been suboptimal past few days (5) History of pulmonary embolism: Continue his usual warfarin dose, INR is < 2.0 d/w Dr. Corado, will give him therapeutic Lovenox while we wait for INR to rise Monitor INR daily Admission and Anticipated Discharge Date Admission Date: July 08, 2020 Subjective patient feeling better than he did prior to admission breathing easier, no fever, has a cough, his appetite is a lot better, most he has eaten in a week he said he was diagnosed back on 06/29, thought he was getting better then he st arted with a cough, dyspnea his strength is good today we discussed importance of nutrition and hydration and rest will try to titrate off oxygen as tolerated reviewed labs, Cr normal, electrolytes stable, WBC 4k, Hb 13 Review of Systems Review of Systems: All systems reviewed & are unremarkable except as noted in Subjective Constitutional: no fever, no fatigue and no weakness Respiratory: + cough and + dyspnea on exertion; no dyspnea and no sputum production Physical Exam Constitutional: WD/WN, vitals as above + obese Neck: trachea midline, no thyromegaly Respiratory: normal respiratory effort and + cough; no respiratory distress and no labored breathing Auscultation: lungs clear to auscultation bilaterally; no rhonchi and no wheezes Cardiovascular: RRR, no murmur, no edema Gastrointestinal (Abdomen): normal bowel sounds, soft, nontender, no hepatosplenomegaly Musculoskeletal: no cyanosis or clubbing, extremities motor strength 5/5 Skin: no rashes, warm and dry Neurologic: patellar DTR's 2+ bilat, sensation intact and PERRL, EOMI, accommodation nl, no face palsy, no dysarthria Psychiatric: A+Ox3, euthymic affect Lymphatic: no cervical or axillary lymphadenopathy Results & Data Results & Data ([facility]) Vital Signs (Past 12 Hours) Vital Signs Temp Pulse Resp BP Pulse Ox 07/09/20 09:23 36.7 C 70 18 120/74 91 Laboratory Results Laboratory Results - last 24 hr 07/09/20 07/09/20 07/09/20 06:11 06:46 06:46 WBC 4.32 L RBC 4.28 L Hgb 13.8 L Hct 40.5 L MCV 94.6 MCH 32.2 MCHC 34.1 RDW Std Deviation 48.5 H RDW Coeff of Lisbeth 14.1 Plt Count 169 MPV 9.2 Immature Gran % (Auto) 0.0 Neut % (Auto) 68.6 Lymph % (Auto) 22.2 [place] % (Auto) 9.0 Eos % (Auto) 0.0 Baso % (Auto) 0.2 Neut # (Auto) 2.96 Lymph # (Auto) 0.96 L [place] # (Auto) 0.39 Eos # (Auto) 0.00 Baso # (Auto) 0.01 Immature Gran # (Auto) 0.00 PT INR Sodium 138 Potassium 4.4 Chloride 108 H Carbon Dioxide 24 Anion Gap 6.0 BUN 29 H Creatinine 1.19 Est Cr Clr Drug Dosing 66.7 Est GFR ( Amer) 68.8 Est GFR (Non-Af Amer) 59.4 BUN/Creatinine Ratio 24.5 H Glucose 145 H Calcium 8.5 C-Reactive Protein 2.63 H Urine Color Dark Yellow Urine Appearance Clear Urine pH 5.5 Ur Specific [place] > 1.045 H Urine Protein 1+ H Urine Glucose (UA) Negative Urine Ketones Trace H Urine Blood Negative Urine Nitrite Negative Urine Bilirubin Negative Urine Urobilinogen Negative Ur Leukocyte Esterase Negative Urine WBC (Auto) 1-5 Urine RBC (Auto) 0-4 U Hyaline Cast (Auto) 1-5 U Epithel Cells (Auto) >30 H Urine Bacteria (Auto) Negative 07/09/20 06:46 WBC RBC Hgb Hct MCV MCH MCHC RDW Std Deviation RDW Coeff of Lisbeth Plt Count MPV Immature Gran % (Auto) Neut % (Auto) Lymph % (Auto) [place] % (Auto) Eos % (Auto) Baso % (Auto) Neut # (Auto) Lymph # (Auto) [place] # (Auto) Eos # (Auto) Baso # (Auto) Immature Gran # (Auto) PT 12.4 H INR 1.2 H Sodium Potassium Chloride Carbon Dioxide Anion Gap BUN Creatinine Est Cr Clr Drug Dosing Est GFR ( Amer) Est GFR (Non-Af Amer) BUN/Creatinine Ratio Glucose Calcium C-Reactive Protein Urine Color Urine Appearance Urine pH Ur Specific [place] Urine Protein Urine Glucose (UA) Urine Ketones Urine Blood Urine Nitrite Urine Bilirubin Urine Urobilinogen Ur Leukocyte Esterase Urine WBC (Auto) Urine RBC (Auto) U Hyaline Cast (Auto) U Epithel Cells (Auto) Urine Bacteria (Auto) Medications Administered Current Inpatient Medications Acetaminophen (Acetaminophen 325 Mg Tab) 650 mg PO Q4H PRN PRN Reason: pain/fever Stop: 08/07/20 18:09 Allopurinol (Allopurinol 100 Mg Tab) 100 mg PO BID [facility] Stop: 08/07/20 20:59 Last Admin: 07/09/20 09:29 Dose: 100 mg Documented by: Enoxaparin Sodium (Enoxaparin 1 Mg/Kg) 1 mg SQ Q12H [facility] Stop: 08/08/20 15:14 Famotidine (Famotidine 20 Mg Tab) 20 mg PO BID [facility] Stop: 08/07/20 22:59 Last Admin: 07/09/20 09:29 Dose: 20 mg Documented by: Dexamethasone Sodium Phosphate (6 mg/ Syringe) 1.5 mls @ 1 mls/min IV QAM [facility] Stop: 08/08/20 08:59 Last Admin: 07/09/20 09:29 Dose: 1 mls/min Documented by: Potassium Citrate (Potassium Citrate 10 Meq Tab) 10 meq PO BID [facility] Stop: 08/07/20 20:59 Last Admin: 07/09/20 09:29 Dose: 10 meq Documented by: Pravastatin Sodium (Pravastatin Sod 20 Mg Tab) 20 mg PO HS [facility] Stop: 08/07/20 20:59 Last Admin: 07/08/20 20:49 Dose: 20 mg Documented by: Pregabalin (Pregabalin 150 Mg Cap) 300 mg PO BID [facility] Stop: 08/07/20 20:59 Last Admin: 07/09/20 09:29 Dose: 300 mg Documented by: Warfarin Sodium (Warfarin Sod 5 Mg Tab) 5 mg PO MoWeFr@1600 [facility] Stop: 08/07/20 18:59 Last Admin: 07/08/20 20:50 Dose: 5 mg Documented by: Warfarin Sodium (Warfarin Sod 7.5 Mg Tab) 7.5 mg PO SuTuThSa@1600 [facility] Stop: 08/08/20 15:59 PG Care Time/CCT Total # of Minutes Spent Total Time Spent with Patient: Total time spent is greater than 50% in coordination of care (as documented) at patient's floor/unit and/or counseling patient: Coding Level of Care Code 27527 Subseq Hosp Care Lvl 2 Diagnoses COVID-19 U07.1 Hypoxia R09.02 Gastritis K29.70 Hypertension I10 History of pulmonary embolism Z86.711
[2020-07-09] MEDS ORDERED: ENOXAPARIN 1 MG/KG SQ SCH (15:15)
[2020-07-09] MEDS: WARFARIN SOD 7.5 MG TAB PO SCH (17:41)
[2020-07-09] MEDS: ENOXAPARIN INJ 120 MG/0.8 ML SYR SQ SCH ×2 (18:04→18:23)
[2020-07-09] MEDS: PRAVASTATIN SOD 20 MG TAB PO SCH (20:56)
--- NOTE | 2020-07-09 21:13 | Electrocardiogram Report ---
Test Reason : Blood Pressure : / mmHG Vent. Rate : 086 BPM Atrial Rate : 086 BPM P-R Int : 186 ms QRS Dur : 090 ms QT Int : 366 ms P-R-T Axes : 021 -39 033 degrees QTc Int : 437 ms Normal sinus rhythm with sinus arrhythmia Left axis deviation Abnormal ECG When compared with ECG of 08-JUL-2020 10:50, No significant change was found Confirmed by Champ Cai ([id number]) on 07/09/2020 9:12:56 PM Referred By: REFERRED SELF Confirmed By:Champ Cai
[2020-07-10] MEDS: ENOXAPARIN INJ 120 MG/0.8 ML SYR SQ SCH ×2 (05:40→18:03)
[2020-07-10 06:35] LABS: INR 1.6 (0.9-1.1); Prothrombin Time 15.4 Seconds (9.0-12.0)
[2020-07-10] MEDS: DEXAMETHASONE SOD PHOSPHATE 6 MG in SYRINGE 0 ML IV SCH (08:43)
[2020-07-10] MEDS: FAMOTIDINE 20 MG TAB PO SCH ×2 (08:44→20:20)
[2020-07-10] MEDS: POTASSIUM CITRATE 10 MEQ TAB PO SCH ×2 (08:44→20:20)
[2020-07-10] MEDS: allopurinoL 100 MG TAB PO SCH ×2 (08:44→20:20)
[2020-07-10] MEDS: PREGABALIN 150 MG CAP PO SCH ×2 (08:47→20:20)
--- NOTE | 2020-07-10 13:31 | Hospitalist Progress Note ---
Date of Service July 10, 2020 Assessment & Plan (1) COVID-19: Dexamethasone 6 mg IV daily x 10 days, day 3 Covid isolation precautions Codeine for cough every 6 hours to help him rest (2) Hypoxia: stable on 2L NC today no increased work of breathing Aim O2 sats > 90% secondary to COVID-[address], procalcitonin negative and white blood count differential not suggestive of bacterial pneumonia. No pulmonary embolism on CTA try to wean to room air as tolerated (3) Gastritis: Suspected on exam. In the setting of dexamethasone use will start famotidine 20 mg p.o. twice daily. (4) Hypertension: Hold antihypertensives on admission. BP starting to get elevated resume medications tomorrow (5) History of pulmonary embolism: Continue his usual warfarin dose, INR is 1.6 d/w Dr. Corado, will give him therapeutic Lovenox while we wait for INR to rise Monitor INR daily (6) Insomnia: restless in the hospital will give Melatonin 6mg this evening Admission and Anticipated Discharge Date Admission Date: July 08, 2020 Subjective patient remains on 2L NC, saturations 90-93% while sitting at the edge of bed he could not sleep last night, restless, could not get comfortable, requests Melatonin this evening cough is less frequent, has not needed Robitussin no fever/chills, no sweats, no chest pain, no GI symptoms INR is 1.6 today, continue on Lovenox encouraged him to be patient, take it one day at a time, get him home once he is off oxygen Review of Systems Review of Systems: All systems reviewed & are unremarkable except as noted in Subjective Respiratory: + cough and + dyspnea on exertion; no dyspnea and no sputum production Physical Exam Constitutional: WD/WN, vitals as above + obese Neck: trachea midline, no thyromegaly Respiratory: normal respiratory effort and + cough; no respiratory distress and no labored breathing Auscultation: lungs clear to auscultation bilaterally; no rhonchi and no wheezes Cardiovascular: RRR, no murmur, no edema Gastrointestinal (Abdomen): normal bowel sounds, soft, nontender, no hepatosplenomegaly Musculoskeletal: no cyanosis or clubbing, extremities motor strength 5/5 Skin: no rashes, warm and dry Neurologic: patellar DTR's 2+ bilat, sensation intact and PERRL, EOMI, accommodation nl, no face palsy, no dysarthria Psychiatric: A+Ox3, euthymic affect Lymphatic: no cervical or axillary lymphadenopathy Results & Data Results & Data ([facility]) Vital Signs (Past 12 Hours) Vital Signs Temp Pulse Resp BP Pulse Ox 07/10/20 08:42 36.7 C 84 16 140/38 L 90 07/10/20 05:38 37.1 C 77 20 135/67 91 Laboratory Results Laboratory Results - last 24 hr 07/10/20 06:16 PT 15.4 H INR 1.6 H Medications Administered Current Inpatient Medications Acetaminophen (Acetaminophen 325 Mg Tab) 650 mg PO Q4H PRN PRN Reason: pain/fever Stop: 08/07/20 18:09 Allopurinol (Allopurinol 100 Mg Tab) 100 mg PO BID [facility] Stop: 08/07/20 20:59 Last Admin: 07/10/20 08:44 Dose: 100 mg Documented by: Enoxaparin Sodium (Enoxaparin Inj 120 Mg/0.8 Ml Syr) 111 mg SQ BID@0600,1800 [facility] Stop: 08/08/20 15:44 Last Admin: 07/10/20 05:40 Dose: 111 mg Documented by: Famotidine (Famotidine 20 Mg Tab) 20 mg PO BID [facility] Stop: 08/07/20 22:59 Last Admin: 07/10/20 08:44 Dose: 20 mg Documented by: Guaifenesin/Codeine Phosphate (Guaifenesin/Codeine 200mg/20mg 10ml Udc) 10 ml PO Q6H PRN PRN Reason: Cough Stop: 08/08/20 21:45 Dexamethasone Sodium Phosphate (6 mg/ Syringe) 1.5 mls @ 1 mls/min IV QAM [facility] Stop: 08/08/20 08:59 Last Admin: 07/10/20 08:43 Dose: 1 mls/min Documented by: Potassium Citrate (Potassium Citrate 10 Meq Tab) 10 meq PO BID [facility] Stop: 08/07/20 20:59 Last Admin: 07/10/20 08:44 Dose: 10 meq Documented by: Pravastatin Sodium (Pravastatin Sod 20 Mg Tab) 20 mg PO HS [facility] Stop: 08/07/20 20:59 Last Admin: 07/09/20 20:56 Dose: 20 mg Documented by: Pregabalin (Pregabalin 150 Mg Cap) 300 mg PO BID [facility] Stop: 08/07/20 20:59 Last Admin: 07/10/20 08:47 Dose: 300 mg Documented by: Warfarin Sodium (Warfarin Sod 5 Mg Tab) 5 mg PO MoWeFr@1600 [facility] Stop: 08/07/20 18:59 Last Admin: 07/08/20 20:50 Dose: 5 mg Documented by: Warfarin Sodium (Warfarin Sod 7.5 Mg Tab) 7.5 mg PO SuTuThSa@1600 [facility] Stop: 08/08/20 15:59 Last Admin: 07/09/20 17:41 Dose: 7.5 mg Documented by: PG Care Time/CCT Total # of Minutes Spent Total Time Spent with Patient: Total time spent is greater than 50% in coordination of care (as documented) at patient's floor/unit and/or counseling patient: Coding Level of Care Code 11677 Subseq Hosp Care Lvl 2 Diagnoses COVID-19 U07.1 Hypoxia R09.02 Gastritis K29.70 Hypertension I10 History of pulmonary embolism Z86.711 Insomnia G47.00
[2020-07-10] MEDS: WARFARIN SOD 5 MG TAB PO SCH (16:22)
[2020-07-10] MEDS: PRAVASTATIN SOD 20 MG TAB PO SCH (20:20)
[2020-07-10] MEDS: MELATONIN 3 MG TAB PO PRN (20:20)
[2020-07-10] MEDS ORDERED: MELATONIN 3 MG TAB PO ONE (23:56)
[2020-07-11] MEDS: ENOXAPARIN INJ 120 MG/0.8 ML SYR SQ SCH ×2 (05:49→18:01)
[2020-07-11 07:52] LABS: Hematocrit (blood only) 43.9 % (42-52); Mean Corpuscular Hemoglobin 31.9 pg (25-34); Mean Corpuscular Hgb Conc 34.2 g/dL (32-36); Mean Corpuscular Volume 93.4 fL (80-100); Mean Platelet Volume 10.2 fL (7.4-10.4); Platelet Count 124 K/uL (130-400); RDW Coefficient of Variation 13.7 % (11.5-14.5); RDW Standard Deviation 46.7 fL (36.4-46.3)
[2020-07-11 08:03] LABS: BUN Creatinine Ratio 20.4 (10-20); Calcium 8.7 mg/dl (8.5-10.1); Creatinine Clr Calc Pharmacy 61.1 ml/min; Est GFR (African American) 61.9; Est GFR (Non-African American) 53.4; Potassium 4.1 mmol/L (3.5-5.1)
[2020-07-11] MEDS: LISINOPRIL/HCTZ 10/12.5MG TAB PO SCH (08:59)
[2020-07-11] MEDS: PREGABALIN 150 MG CAP PO SCH ×2 (08:59→21:15)
[2020-07-11] MEDS: allopurinoL 100 MG TAB PO SCH ×2 (08:59→21:15)
[2020-07-11] MEDS: DEXAMETHASONE SOD PHOSPHATE 6 MG in SYRINGE 0 ML IV SCH (08:59)
[2020-07-11] MEDS: POTASSIUM CITRATE 10 MEQ TAB PO SCH ×2 (08:59→21:15)
[2020-07-11] MEDS: FAMOTIDINE 20 MG TAB PO SCH ×2 (08:59→21:15)
--- NOTE | 2020-07-11 12:09 | Hospitalist Progress Note ---
Date of Service July 11, 2020 Assessment & Plan (1) COVID-19: Dexamethasone 6 mg IV daily x 10 days, day 4 Covid isolation precautions Codeine for cough every 6 hours to help him rest (2) Hypoxia: remaines stable on 2L NC today, saturations 90-91% no increased work of breathing secondary to COVID-[address], procalcitonin negative and white blood count differential not suggestive of bacterial pneumonia. No pulmonary embolism on CTA try to wean to room air as tolerated, hopeful to discharge in a few days (3) Gastritis: Suspected on exam. In the setting of dexamethasone use will start fam otidine 20 mg p.o. twice daily. (4) Hypertension: Hold antihypertensives on admission. BP starting to get elevated resume medications today (5) History of pulmonary embolism: Continue his usual warfarin dose, INR is 1.6 on 07/10 d/w Dr. Corado, will give him therapeutic Lovenox while we wait for INR to rise repeat INR tomorrow (6) Insomnia: restless in the hospital will give Melatonin 6mg - no success try Ativan 0.5mg HS tonight (7) Constipated: give Miralax daily until he has a BM Admission and Anticipated Discharge Date Admission Date: July 08, 2020 Subjective patient c/o constipation, no BM for a few days, will give Miralax, he agrees did not sleep well last night, maybe two hours, taking naps today eating great, all his food, no fever/chills still has the non-productive cough, annoying no chest pain, no nausea/vomiting WBC 12k, Cr 1.3 and K 4.1 Review of Systems Review of Systems: All systems reviewed & are unremarkable except as noted in Subjective Respiratory: + cough and + dyspnea on exertion; no dyspnea and no sputum production Gastrointestinal: + constipation Physical Exam Constitutional: WD/WN, vitals as above + obese Neck: trachea midline, no thyromegaly Respiratory: normal respiratory effort and + cough; no respiratory distress and no labored breathing Auscultation: lungs clear to auscultation bilaterally; no rhonchi and no wheezes Cardiovascular: RRR, no murmur, no edema Gastrointestinal (Abdomen): normal bowel sounds, soft, nontender, no hepatosplenomegaly Musculoskeletal: no cyanosis or clubbing, extremities motor strength 5/5 Skin: no rashes, warm and dry Neurologic: patellar DTR's 2+ bilat, sensation intact and PERRL, EOMI, accommodation nl, no face palsy, no dysarthria Psychiatric: A+Ox3, euthymic affect Lymphatic: no cervical or axillary lymphadenopathy Results & Data Results & Data ([facility]) Vital Signs (Past 12 Hours) Vital Signs Temp Pulse Resp BP Pulse Ox 07/11/20 09:00 36.3 C L 82 20 116/68 91 Laboratory Results Laboratory Results - last 24 hr 07/11/20 07/11/20 07/11/20 07:38 07:38 07:38 WBC 12.50 H RBC 4.70 Hgb 15.0 Hct 43.9 MCV 93.4 MCH 31.9 MCHC 34.2 RDW Std Deviation 46.7 H RDW Coeff of Lisbeth 13.7 Plt Count 124 L MPV 10.2 PT Cancelled INR Cancelled Sodium 136 Potassium 4.1 Chloride 105 Carbon Dioxide 23 Anion Gap 8.0 BUN 27 H Creatinine 1.30 Est Cr Clr Drug Dosing 61.1 Est GFR ( Amer) 61.9 Est GFR (Non-Af Amer) 53.4 BUN/Creatinine Ratio 20.4 H Glucose 109 H Calcium 8.7 Medications Administered Current Inpatient Medications Acetaminophen (Acetaminophen 325 Mg Tab) 650 mg PO Q4H PRN PRN Reason: pain/fever Stop: 08/07/20 18:09 Allopurinol (Allopurinol 100 Mg Tab) 100 mg PO BID [facility] Stop: 08/07/20 20:59 Last Admin: 07/11/20 08:59 Dose: 100 mg Documented by: Enoxaparin Sodium (Enoxaparin Inj 120 Mg/0.8 Ml Syr) 111 mg SQ BID@0600,1800 [facility] Stop: 08/08/20 15:44 Last Admin: 07/11/20 05:49 Dose: 111 mg Documented by: Famotidine (Famotidine 20 Mg Tab) 20 mg PO BID [facility] Stop: 08/07/20 22:59 Last Admin: 07/11/20 08:59 Dose: 20 mg Documented by: Guaifenesin/Codeine Phosphate (Guaifenesin/Codeine 200mg/20mg 10ml Udc) 10 ml PO Q6H PRN PRN Reason: Cough Stop: 08/08/20 21:45 Last Admin: 07/11/20 08:56 Dose: 10 ml Documented by: Lisinopril/HCTZ (Lisinopril/Hctz 10/12.5mg Tab) 1 tab PO QAM [facility] Stop: 08/10/20 08:59 Last Admin: 07/11/20 08:59 Dose: 1 tab Documented by: Dexamethasone Sodium Phosphate (6 mg/ Syringe) 1.5 mls @ 1 mls/min IV QAM [facility] Stop: 08/08/20 08:59 Last Admin: 07/11/20 08:59 Dose: 1 mls/min Documented by: Melatonin (Melatonin 3 Mg Tab) 6 mg PO HS PRN PRN Reason: Sleep Stop: 08/09/20 14:12 Last Admin: 07/10/20 20:20 Dose: 6 mg Documented by: Polyethylene Glycol (Polyethylene (Miralax) 17 Gm Pack) 17 gm PO DAILY [facility] Stop: 08/10/20 12:14 Potassium Citrate (Potassium Citrate 10 Meq Tab) 10 meq PO BID [facility] Stop: 08/07/20 20:59 Last Admin: 07/11/20 08:59 Dose: 10 meq Documented by: Pravastatin Sodium (Pravastatin Sod 20 Mg Tab) 20 mg PO HS [facility] Stop: 08/07/20 20:59 Last Admin: 07/10/20 20:20 Dose: 20 mg Documented by: Pregabalin (Pregabalin 150 Mg Cap) 300 mg PO BID [facility] Stop: 08/07/20 20:59 Last Admin: 07/11/20 08:59 Dose: 300 mg Documented by: Warfarin Sodium (Warfarin Sod 5 Mg Tab) 5 mg PO MoWeFr@1600 [facility] Stop: 08/07/20 18:59 Last Admin: 07/10/20 16:22 Dose: 5 mg Documented by: Warfarin Sodium (Warfarin Sod 7.5 Mg Tab) 7.5 mg PO SuTuThSa@1600 [facility] Stop: 08/08/20 15:59 Last Admin: 07/09/20 17:41 Dose: 7.5 mg Documented by: PG Care Time/CCT Total # of Minutes Spent Total Time Spent with Patient: Total time spent is greater than 50% in coordination of care (as documented) at patient's floor/unit and/or counseling patient: Coding Level of Care Code 76983 Subseq Hosp Care Lvl 3 Diagnoses COVID-19 U07.1 Hypoxia R09.02 Gastritis K29.70 Hypertension I10 History of pulmonary embolism Z86.711 Insomnia G47.00 Constipated K59.00
[2020-07-11] MEDS ORDERED: POLYETHYLENE (MIRALAX) 17 GM PACK PO ONE (12:15)
[2020-07-11] MEDS: WARFARIN SOD 7.5 MG TAB PO SCH (16:13)
[2020-07-11] MEDS: PRAVASTATIN SOD 20 MG TAB PO SCH (21:15)
[2020-07-11] MEDS: MELATONIN 3 MG TAB PO PRN (22:24)
[2020-07-12] MEDS: ENOXAPARIN INJ 120 MG/0.8 ML SYR SQ SCH ×2 (05:33→17:23)
[2020-07-12 06:22] LABS: INR 1.6 (0.9-1.1)
[2020-07-12 06:30] LABS: Hemoglobin 13.4 g/dL (14.0-18.0); Mean Corpuscular Hemoglobin 32.5 pg (25-34); Mean Corpuscular Hgb Conc 34.4 g/dL (32-36); Mean Corpuscular Volume 94.7 fL (80-100); Mean Platelet Volume 9.1 fL (7.4-10.4); Platelet Count 205 K/uL (130-400); RDW Coefficient of Variation 14.1 % (11.5-14.5); RDW Standard Deviation 48.3 fL (36.4-46.3); Red Blood Count 4.12 M/uL (4.7-6.1); White Blood Count 9.22 K/uL (4.8-10.8)
[2020-07-12 06:40] LABS: Est GFR (African American) 64.2; Est GFR (Non-African American) 55.4
[2020-07-12] MEDS: PREGABALIN 150 MG CAP PO SCH ×2 (08:26→20:59)
[2020-07-12] MEDS: POLYETHYLENE (MIRALAX) 17 GM PACK PO SCH (08:26)
[2020-07-12] MEDS: LISINOPRIL/HCTZ 10/12.5MG TAB PO SCH (08:27)
[2020-07-12] MEDS: FAMOTIDINE 20 MG TAB PO SCH ×2 (08:27→20:59)
[2020-07-12] MEDS: allopurinoL 100 MG TAB PO SCH ×2 (08:27→20:59)
[2020-07-12] MEDS: POTASSIUM CITRATE 10 MEQ TAB PO SCH ×2 (08:27→20:59)
[2020-07-12] MEDS: DEXAMETHASONE SOD PHOSPHATE 6 MG in SYRINGE 0 ML IV SCH (08:27)
[2020-07-12] MEDS ORDERED: LORazepam 0.5 MG TAB PO PRN (11:02)
--- NOTE | 2020-07-12 11:03 | Hospitalist Progress Note ---
Date of Service July 12, 2020 Assessment & Plan (1) COVID-19: Dexamethasone 6 mg IV daily x 10 days, day 5 Covid isolation precautions Codeine for cough every 6 hours to help him rest (2) Hypoxia: remaines stable on 2L NC today, saturations 90-92% no increased work of breathing secondary to COVID-[address], procalcitonin negative and white blood count differential not suggestive of bacterial pneumonia. No pulmonary embolism on CTA try to wean to room air as tolerated, hopeful to discharge in 1-2 days encouraged him to sit more upright in chair, use incentive spirometer, don't want him laying in bed all day (3) Gastritis: Suspected on exam. In the setting of dexamethasone use will start famotidine 20 mg p.o. twice daily (4) Hypertension: BP stable 118 systolic today (5) History of pulmonary embolism: INR has been 1.6 for three days, not increasing on home regimen of 7.5mg daily except 5mg on MWF will change to 7.5mg daily, follow INR daily d/w Dr. Corado, will give him therapeutic Lovenox while we wait for INR to rise (6) Insomnia: restless in the hospital will give Melatonin 6mg - no success try Ativan 0.5mg HS slept well last night (7) Constipated: give Miralax daily until he has a BM had a small BM this morning, not much, continue Miralax Admission and Anticipated Discharge Date Admission Date: July 08, 2020 Subjective patient feeling the same as yesterday, coughing a little more, Robitussin helping he slept really well last night, very pleased at that encouraged him to get up OOB in chair, want lungs upright, take deep breaths with incentive spirometer still on 2L, trying to get him down to room air eating really well labs today show stable CBC, Cr is 1.26 INR is 1.6 still today, not rising despite normal dosing, will make him 7.5mg daily instead of 5mg on MWF follow daily Review of Systems Review of Systems: All systems reviewed & are unremarkable except as noted in Subjective Constitutional: no fever, no chills, no sweats, no fatigue and no weakness Respiratory: + cough; no dyspnea and no dyspnea on exertion Cardiovascular: no chest pain and no edema Gastrointestinal: no abdominal pain, no nausea, no vomiting, no constipation and no diarrhea/loose stools Physical Exam Constitutional: WD/WN, vitals as above + obese Neck: trachea midline, no thyromegaly Respiratory: normal respiratory effort and + cough; no respiratory distress and no labored breathing Auscultation: lungs clear to auscultation bilaterally; no rhonchi and no wheezes Cardiovascular: RRR, no murmur, no edema Gastrointestinal (Abdomen): normal bowel sounds, soft, nontender, no hepatosplenomegaly Musculoskeletal: no cyanosis or clubbing, extremities motor strength 5/5 Skin: no rashes, warm and dry Neurologic: patellar DTR's 2+ bilat, sensation intact and PERRL, EOMI, accommodation nl, no face palsy, no dysarthria Psychiatric: A+Ox3, euthymic affect Lymphatic: no cervical or axillary lymphadenopathy Results & Data Results & Data ([facility]) Vital Signs (Past 12 Hours) Vital Signs Temp Pulse Resp BP Pulse Ox 07/12/20 08:27 36.8 C 77 16 118/59 L 92 Laboratory Results Laboratory Results - last 24 hr 07/12/20 07/12/20 07/12/20 06:01 06:01 06:01 WBC 9.22 RBC 4.12 L Hgb 13.4 L Hct 39.0 L MCV 94.7 MCH 32.5 MCHC 34.4 RDW Std Deviation 48.3 H RDW Coeff of Lisbeth 14.1 Plt Count 205 D MPV 9.1 PT 16.0 H INR 1.6 H Creatinine 1.26 Est Cr Clr Drug Dosing 63.0 Est GFR ( Amer) 64.2 Est GFR (Non-Af Amer) 55.4 Medications Administered Current Inpatient Medications Acetaminophen (Acetaminophen 325 Mg Tab) 650 mg PO Q4H PRN PRN Reason: pain/fever Stop: 08/07/20 18:09 Allopurinol (Allopurinol 100 Mg Tab) 100 mg PO BID [facility] Stop: 08/07/20 20:59 Last Admin: 07/12/20 08:27 Dose: 100 mg Documented by: Enoxaparin Sodium (Enoxaparin Inj 120 Mg/0.8 Ml Syr) 111 mg SQ BID@0600,1800 [facility] Stop: 08/08/20 15:44 Last Admin: 07/12/20 05:33 Dose: 111 mg Documented by: Famotidine (Famotidine 20 Mg Tab) 20 mg PO BID [facility] Stop: 08/07/20 22:59 Last Admin: 07/12/20 08:27 Dose: 20 mg Documented by: Guaifenesin/Codeine Phosphate (Guaifenesin/Codeine 200mg/20mg 10ml Udc) 10 ml PO Q6H PRN PRN Reason: Cough Stop: 08/08/20 21:45 Last Admin: 07/11/20 22:24 Dose: 10 ml Documented by: Lisinopril/HCTZ (Lisinopril/Hctz 10/12.5mg Tab) 1 tab PO QAM [facility] Stop: 08/10/20 08:59 Last Admin: 07/12/20 08:27 Dose: 1 tab Documented by: Dexamethasone Sodium Phosphate (6 mg/ Syringe) 1.5 mls @ 1 mls/min IV QAM [facility] Stop: 08/08/20 08:59 Last Admin: 07/12/20 08:27 Dose: 1 mls/min Documented by: Lorazepam (Lorazepam 0.5 Mg Tab) 0.5 mg PO HS PRN PRN Reason: Sleep Stop: 08/11/20 11:01 Melatonin (Melatonin 3 Mg Tab) 6 mg PO HS PRN PRN Reason: Sleep Stop: 08/09/20 14:12 Last Admin: 07/11/20 22:24 Dose: 6 mg Documented by: Polyethylene Glycol (Polyethylene (Miralax) 17 Gm Pack) 17 gm PO DAILY [facility] Stop: 08/11/20 08:59 Last Admin: 07/12/20 08:26 Dose: 17 gm Documented by: Potassium Citrate (Potassium Citrate 10 Meq Tab) 10 meq PO BID [facility] Stop: 08/07/20 20:59 Last Admin: 07/12/20 08:27 Dose: 10 meq Documented by: Pravastatin Sodium (Pravastatin Sod 20 Mg Tab) 20 mg PO HS [facility] Stop: 08/07/20 20:59 Last Admin: 07/11/20 21:15 Dose: 20 mg Documented by: Pregabalin (Pregabalin 150 Mg Cap) 300 mg PO BID [facility] Stop: 08/07/20 20:59 Last Admin: 07/12/20 08:26 Dose: 300 mg Documented by: Warfarin Sodium (Warfarin Sod 7.5 Mg Tab) 7.5 mg PO DAILY@1600 [facility] Stop: 08/11/20 15:59 PG Care Time/CCT Total # of Minutes Spent Total Time Spent with Patient: Total time spent is greater than 50% in coordination of care (as documented) at patient's floor/unit and/or counseling patient: Coding Level of Care Code 48968 Subseq Hosp Care Lvl 3 Diagnoses COVID-19 U07.1 Hypoxia R09.02 Gastritis K29.70 Hypertension I10 History of pulmonary embolism Z86.711 Insomnia G47.00 Constipated K59.00
[2020-07-12] MEDS: WARFARIN SOD 7.5 MG TAB PO SCH (16:00)
[2020-07-12] MEDS: PRAVASTATIN SOD 20 MG TAB PO SCH (21:00)
[2020-07-13] MEDS: ENOXAPARIN INJ 120 MG/0.8 ML SYR SQ SCH ×2 (05:12→17:09)
[2020-07-13 06:40] LABS: INR 1.6 (0.9-1.1); Prothrombin Time 16.1 Seconds (9.0-12.0)
[2020-07-13] MEDS: DEXAMETHASONE SOD PHOSPHATE 6 MG in SYRINGE 0 ML IV SCH (07:45)
[2020-07-13] MEDS: POLYETHYLENE (MIRALAX) 17 GM PACK PO SCH (07:46)
[2020-07-13] MEDS: LISINOPRIL/HCTZ 10/12.5MG TAB PO SCH (07:47)
[2020-07-13] MEDS: allopurinoL 100 MG TAB PO SCH ×2 (07:47→20:54)
[2020-07-13] MEDS: POTASSIUM CITRATE 10 MEQ TAB PO SCH ×2 (07:47→20:54)
[2020-07-13] MEDS: FAMOTIDINE 20 MG TAB PO SCH ×2 (07:47→20:53)
[2020-07-13] MEDS: PREGABALIN 150 MG CAP PO SCH ×2 (07:57→20:54)
--- NOTE | 2020-07-13 13:02 | Hospitalist Progress Note ---
Date of Service July 13, 2020 Assessment & Plan (1) COVID-19: Dexamethasone 6 mg IV daily x 10 days, day 6 Covid isolation precautions Codeine for cough every 6 hours to help him rest (2) Hypoxia: remaines stable on 2L NC, saturations 90-92% secondary to COVID-[address], procalcitonin negative and white blood count differential not suggestive of bacterial pneumonia. No pulmonary embolism on CTA try to wean to room air as tolerated, hopeful to discharge in 1-2 days encouraged him to sit more upright in chair, use incentive spirometer, don't want him laying in bed all day (3) Gastritis: Suspected on exam. In the setting of dexamethasone use will start famotidine 20 mg p.o. twice daily (4) Hypertension: BP stable 118 systolic today (5) History of pulmonary embolism: INR has been 1.6, not increasing on home regimen of 7.5mg daily except 5mg on MWF will change to 7.5mg daily, follow INR daily has been d/w Dr. Corado, will give him therapeutic Lovenox while we wait for INR to rise (6) Insomnia: restless in the hospital will give Melatonin 6mg - no success try Ativan 0.5mg HS (7) Constipated: give Miralax daily until he has a BM had a small BM this morning, not much, continue Miralax Admission and Anticipated Discharge Date Admission Date: July 08, 2020 Subjective Pt states today is a "gloomy day". He feels a bit down about ongoing breathing issues. He is not SOB at rest, but still does not feel like he would be able to do his usual activities, which involve a lot of work around his house, projects, etc. Tolerating PO. No chest pain. Upon reflection, notes how much better he feels than [employer]. Pt denies fever, abd pain, n/v/c/d, LE pain or swelling. Review of Systems Review of Systems: Pertinent positives and negatives reviewed in HPI--all others negative Physical Exam Constitutional: WD/WN, vitals as above Eyes: normal visual kan by confrontation and + anicteric sclerae Neck: normal visual inspection and trachea midline Respiratory: normal respiratory effort, lungs clear to auscultation Cardiovascular: Rate/Rhythm: regular rate and regular rhythm Gastrointestinal (Abdomen): Inspection/Auscultation: abdomen not distended Percussion/Palpation: abdomen soft; abdomen nontender Musculoskeletal: Head/Neck/Chest: normocephalic and head atraumatic negative for edema, peripheral pulses intact Skin: no rashes, warm and dry Neurologic: awake; not confused Speech / Cognition: normal speech Psychiatric: A+Ox3, euthymic affect Results & Data Results & Data ([facility]) Vital Signs (Past 12 Hours) Vital Signs Temp Pulse Resp BP Pulse Ox 07/13/20 07:40 36.2 C L 71 14 115/68 92 PG Care Time/CCT Total # of Minutes Spent Total Time Spent with Patient: Total time spent is greater than 50% in coordination of care (as documented) at patient's floor/unit and/or counseling patient: Coding Level of Care Code 53058 Subseq Hosp Care Lvl 3 Diagnoses COVID-19 U07.1 Hypoxia R09.02 Gastritis K29.70 Hypertension I10 History of pulmonary embolism Z86.711 Insomnia G47.00 Constipated K59.00
[2020-07-13] MEDS: WARFARIN SOD 7.5 MG TAB PO SCH (17:13)
[2020-07-13] MEDS: PRAVASTATIN SOD 20 MG TAB PO SCH (20:54)
[2020-07-13] MEDS: MELATONIN 3 MG TAB PO PRN (23:39)
[2020-07-14] MEDS: ENOXAPARIN INJ 120 MG/0.8 ML SYR SQ SCH (05:38)
[2020-07-14] MEDS: DEXAMETHASONE SOD PHOSPHATE 6 MG in SYRINGE 0 ML IV SCH (09:00)
[2020-07-14] MEDS: POLYETHYLENE (MIRALAX) 17 GM PACK PO SCH (09:01)
[2020-07-14] MEDS: LISINOPRIL/HCTZ 10/12.5MG TAB PO SCH (09:02)
[2020-07-14] MEDS: FAMOTIDINE 20 MG TAB PO SCH ×2 (09:02→21:14)
[2020-07-14] MEDS: allopurinoL 100 MG TAB PO SCH ×2 (09:02→21:15)
[2020-07-14] MEDS: POTASSIUM CITRATE 10 MEQ TAB PO SCH ×2 (09:02→21:15)
[2020-07-14] MEDS: PREGABALIN 150 MG CAP PO SCH ×2 (10:06→21:13)
[2020-07-14 10:53] LABS: INR 2.4 (0.9-1.1); Prothrombin Time 22.3 Seconds (9.0-12.0)
[2020-07-14 11:01] LABS: Hematocrit (blood only) 39.1 % (42-52); Hemoglobin 13.5 g/dL (14.0-18.0); Mean Corpuscular Hemoglobin 32.1 pg (25-34); Mean Corpuscular Hgb Conc 34.5 g/dL (32-36); Mean Corpuscular Volume 93.1 fL (80-100); Mean Platelet Volume 9.8 fL (7.4-10.4); Platelet Count 223 K/uL (130-400); RDW Standard Deviation 47.5 fL (36.4-46.3)
[2020-07-14 11:02] LABS: ALC (manual) 0.34 K/uL (1.2-3.4); ANC (manual) 12.26 K/uL (1.4-6.5); Lymphocytes # (manual) 0.34 K/uL (1.2-3.4); Lymphocytes % (manual) 2.7 %; Neutrophils # (manual) 12.26 K/uL (1.4-6.5); Neutrophils % (manual) 97.3 %; Toxic Vacuolation 1+
[2020-07-14 11:08] LABS: BUN Creatinine Ratio 27.1 (10-20); Calcium 8.6 mg/dl (8.5-10.1); Creatinine Clr Calc Pharmacy 61.5 ml/min; Est GFR (African American) 62.4; Est GFR (Non-African American) 53.9; Potassium 4.7 mmol/L (3.5-5.1)
--- NOTE | 2020-07-14 13:54 | Hospitalist Progress Note ---
Date of Service July 14, 2020 Assessment & Plan (1) COVID-19: Has now been 20 days since symptoms started-can remove from airborne precautions He is doing very well except for some continued mild hypoxia requiring 2 L nasal cannula -Continue dexamethasone 6 mg IV daily x 10 days, last day of treatment will be 07/17 Continue cough syrup with codeine as needed Continue supplemental O2-Will need a two-step walk test prior to discharge (2) Hypoxia: remains stable on 2L NC, saturations 90-92% secondary to COVID-[address], procalcitonin negative and white blood count differential not suggestive of bacterial pneumonia. No pulmonary embolism on CTA try to wean to room air as tolerated, but will most likely need O2 upon discharge tomorrow Continued to encourage him to sit more upright in chair, use incentive spirometer Continue dexamethasone (3) Gastritis: Suspected on exam. In the setting of dexamethasone use was started on famotidine 20 mg p.o. twice daily-continue He has no complaints of this now (4) Hypertension: Blood pressures are stable Continue home lisinopril/HCTZ (5) History of pulmonary embolism: INR was subtherapeutic at 1.6, and was increased to 7.5 mg daily for the last 2 days INR is now therapeutic at 2.4 Discontinue therapeutic Lovenox dosing Reduce warfarin back to usual dose of 5 mg daily for now Follow PT/INR in the morning (6) Insomnia: restless in the hospital will give Melatonin 6mg - no success Continue Ativan 0.5mg HS as needed (7) Constipated: Now status post large bowel movement on the morning of 07/14 Continue MiraLAX daily (8) Chronic kidney disease, stage III (moderate): Creatinine stable at 1.29 -Avoid nephrotoxins -renally dose meds when appropriate -follow BMP occasionally at this point (9) DVT prophylaxis: Coumadin/Lovenox as above Disposition-much improved, likely discharge to home tomorrow after a two-step walk test to determine home O2 requirements Admission and Anticipated Discharge Date Admission Date: July 08, 2020 Subjective Patient feels well today, is eating and drinking, had a large bowel movement early this morning which she feels good about. He denies any chest pain or shortness of breath. Still some mild cough but much improved. Nurse tried to wean him down to 1 L nasal cannula but he dropped below 88% and was turned back up to 2 L. He is independent in the room and feels strong. He was removed from Covid airborne precautions today. Review of Systems Review of Systems: All systems reviewed & are unremarkable except as noted in HPI & below Physical Exam Constitutional: WD/WN, vitals as above + obese Eyes: + anicteric sclerae Neck: trachea midline, no thyromegaly Respiratory: normal respiratory effort, lungs clear to auscultation Cardiovascular: RRR, no murmur, no edema Chest (Breasts): Chest: normal inspection of chest Gastrointestinal (Abdomen): normal bowel sounds, soft, nontender, no hepatosplenomegaly Musculoskeletal: Extremities: extremities normal to inspection; no cyanosis and no clubbing Skin: no rashes, warm and dry Neurologic: moves all extremities and awake; no focal motor deficits Psychiatric: A+Ox3, euthymic affect Lymphatic: no lymphedema Results & Data Results & Data ([facility]) Vital Signs (Past 12 Hours) Vital Signs Temp Pulse Resp BP Pulse Ox 07/14/20 07:42 36.4 C L 64 16 102/62 91 Laboratory Results 07/14/20 10:15 07/14/20 10:15 PG Care Time/CCT Total # of Minutes Spent Total Time Spent with Patient: Total time spent is greater than 50% in coordination of care (as documented) at patient's floor/unit and/or counseling patient: Coding Level of Care Code 27173 Subseq Hosp Care Lvl 2 Diagnoses COVID-19 U07.1 Hypoxia R09.02 Gastritis K29.70 Hypertension I10 History of pulmonary embolism Z86.711 Insomnia G47.00 Constipated K59.00 Chronic kidney disease, stage III (moderate) N18.3 DVT prophylaxis Z29.9
[2020-07-14] MEDS ORDERED: WARFARIN SOD 5 MG TAB PO SCH (16:00)
[2020-07-14] MEDS ORDERED: ENOXAPARIN INJ 40 MG/0.4 ML SYR SQ SCH (17:30)
[2020-07-14] MEDS: PRAVASTATIN SOD 20 MG TAB PO SCH (21:13)
[2020-07-14] MEDS: MELATONIN 3 MG TAB PO PRN (21:13)
[2020-07-15 07:07] LABS: Hematocrit (blood only) 38.1 % (42-52); Mean Corpuscular Hemoglobin 32.2 pg (25-34); Mean Corpuscular Hgb Conc 34.1 g/dL (32-36); Mean Corpuscular Volume 94.3 fL (80-100); Platelet Count 265 K/uL (130-400); RDW Coefficient of Variation 13.9 % (11.5-14.5); RDW Standard Deviation 48.1 fL (36.4-46.3); Red Blood Count 4.04 M/uL (4.7-6.1); White Blood Count 13.64 K/uL (4.8-10.8)
[2020-07-15 07:24] LABS: INR 2.7 (0.9-1.1); Prothrombin Time 25.1 Seconds (9.0-12.0)
[2020-07-15 07:43] LABS: BUN Creatinine Ratio 27.1 (10-20); Calcium 8.8 mg/dl (8.5-10.1); Creatinine Clr Calc Pharmacy 65.6 ml/min; Est GFR (African American) 67.5; Est GFR (Non-African American) 58.2; Potassium 4.7 mmol/L (3.5-5.1)
[2020-07-15] MEDS: FAMOTIDINE 20 MG TAB PO SCH (08:44)
[2020-07-15] MEDS: LISINOPRIL/HCTZ 10/12.5MG TAB PO SCH (08:45)
[2020-07-15] MEDS: POTASSIUM CITRATE 10 MEQ TAB PO SCH (08:45)
[2020-07-15] MEDS: POLYETHYLENE (MIRALAX) 17 GM PACK PO SCH (08:45)
[2020-07-15] MEDS: allopurinoL 100 MG TAB PO SCH (08:46)
[2020-07-15] MEDS: PREGABALIN 150 MG CAP PO SCH (08:50)
[2020-07-15] MEDS: DEXAMETHASONE SOD PHOSPHATE 6 MG in SYRINGE 0 ML IV SCH (08:50)
--- NOTE | 2020-07-15 14:36 | Discharge Summary ---
Date of Service July 15, 2020 Admission HPI Per Admitting Provider Tio Maldonado is a 74-year-old male who presents to the ER with known COVID-19 pneumonia diagnosed on his previous ER visit 8 days ago. Symptoms started 10 days ago. He reports fever, chills, shortness of breath, cough, loss of taste and smell, myalgias, mild headache, diarrhea, poor appetite, insomnia, eyes burning, generalized weakness and fatigue. He denies any chest or abdominal pain. He reports to the ER today on advice of his PCP due to concern of subtherapeutic INR and possible concern of pulmonary embolism versus secondary bacterial infection as his symptoms have progressively got worse. He denies any double worsening of illness. In the ER CT angiogram for PE shows patchy bilateral groundglass opacities, no pulmonary emboli, stable dilation of aorta at 4.4 cm and stable 2 cm subpleural mass. He now has a slight oxygen requirements therefore was referred to medicine for admission and ongoing management of COVID-19 pneumonia. Principal Diagnosis COVID-19 PNA, Acute respiratory failure with hypoxia Discharge Exam Constitutional WD/WN, vitals as above + obese Eyes + anicteric sclerae Neck trachea midline, no thyromegaly Respiratory normal respiratory effort Auscultation: + crackles (+at left base) Cardiovascular RRR, no murmur, no edema Chest (Breasts) Chest: normal inspection of chest Gastrointestinal (Abdomen) normal bowel sounds, soft, nontender, no hepatosplenomegaly Musculoskeletal Extremities: extremities normal to inspection; no cyanosis and no clubbing Skin no rashes, warm and dry Neurologic moves all extremities and awake; no focal motor deficits Psychiatric A+Ox3, euthymic affect Lymphatic no lymphedema Discharge Data Allergies Allergy/AdvReac Type Severity Reaction Status Date / Time gabapentin Allergy Intermediate Rash Verified 07/08/20 11:18 tramadol Allergy Intermediate Rash and Verified 07/08/20 11:18 itchiness carbamazepine Allergy Unknown Unknown Verified 07/08/20 11:18 Cipro Allergy Unknown Unknown Verified 02/28/16 22:30 ciprofloxacin Allergy Unknown Unknown Verified 07/08/20 11:18 hydrocodone Allergy Unknown Unknown Verified 07/08/20 11:18 oxycodone AdvReac Mild ITCH; PT Verified 07/08/20 11:18 STATES HE TOLERATES PERCOCET Ordered Studies 07/08/20 10:17 CT angio chest PE protocol Stat Hospital Course (1) COVID-19: Has now been 21 days since symptoms started-has since been removed from airborne precautions He is doing very well except for some continued mild hypoxia requiring 2 L nasal cannula -Continue dexamethasone 6 mg IV daily x 10 days, last day of treatment will be 07/17 Continue cough syrup with codeine as needed weaned off supplemental O2 by time of discharge (2) Hypoxia: weaned off O2 by time of discharge secondary to COVID-[address], procalcitonin negative and white blood count differential not suggestive of bacterial pneumonia. No pulmonary embolism on CTA -continue to use incentive spirometer Continue dexamethasone (3) Gastritis: Suspected on exam. In the setting of dexamethasone use was started on famotidine 20 mg p.o. twice daily-continue He has no complaints of this now (4) Hypertension: Blood pressures are stable Continue home lisinopril/HCTZ (5) History of pulmonary embolism: INR was subtherapeutic at 1.6, and was increased to 7.5 mg daily for 2 days INR is now therapeutic Discontinued therapeutic Lovenox dosing Continue home dosing of coumadin on discharge and f/u with Anticoag clinic within 1 week (6) Insomnia: restless in the hospital will give Melatonin 6mg - no success Continue Ativan 0.5mg HS as needed (7) Constipated: Now status post large bowel movement on the morning of 07/14 Continue MiraLAX daily (8) Chronic kidney disease, stage III (moderate): Creatinine stable -Avoid nephrotoxins -renally dose meds when appropriate -follow BMP as outpt (9) DVT prophylaxis: Coumadin as above Disposition-stable for dc to home Total Time Total Time Spent Total Time Spent (In Minutes): 45 min Total Time Includes: Examination of the Patient, Discharge Planning and Medication Reconciliation Discharge Plan Discharge Items Patient Disposition: Home - Self-Care Reason For Visit: COVID 19 PNEUMONIA, HYPOXIA Discharge Diagnosis: COVID-19 Pneumonia, Hypoxia Condition on Discharge: Good Activity: As commented below Lifting: Gradually increase as tolerated Bathing: No limitations Exercise/Sports: Gradually increase as tolerated Weightbearing: Full weightbearing Non-emergency contact: Primary Care Provider Call non-emergency contact if: you have any medication questions, your symptoms worsen and you have a fever Follow-up/Referrals: Stef Encarnacion MD [Primary Care Provider] - 07/20/20 8:40 am (Telehealth visit. Office will call to help get appointment set up) Diet: Heart Healthy Addtl Attending Provider Instructions: You were admitted with Pneumonia from COVID-19 and had low oxygen levels requiring supplementation with oxygen. You were treated with a steroid called dexamethasone and had great improvement. Please continue this medication for 2 more days along with an antacid medication to help protect your stomach (Pepcid/famotidine). You can continue the cough syrup as needed. You no longer required any oxygen at the time of your discharge. You also are no longer required to be on quarantine as it has been 20 days since your symptoms started. Please follow up with your PCP as scheduled for you. If you have any shortness of breath, chest pain, abdominal pain, or any other acute concerns, please either call your doctor's office or come to the ER if severe. Pending Studies at Discharge: No Stand-Alone Forms: [facility] Medications and DC Order Prescriptions: New famotidine 20 mg Tablet 20 mg PO BID Qty: 14 RF: 0 codeine-guaifenesin 10-100 mg/5 mL Liquid 10 ml PO Q6H PRN (Reason: cough) Qty: 120 RF: 0 dexamethasone 6 mg tablet 6 mg PO DAILY Qty: 2 RF: 0 Continued lisinopril-hydrochlorothiazide 10-12.5 mg Tablet 1 tab PO QAM Qty: 0 RF: 0 pravastatin 20 mg Tablet 20 mg PO HS Qty: 0 RF: 0 Systane (propylene glycol) 0.4-0.3 % Drops 1 drp ophthalmic (eye) QID PRN (Reason: Dry Eye(S)) Qty: 0 RF: 0 furosemide [Lasix] 40 mg Tablet 40 mg PO DAILY PRN (Reason: Edema) Qty: 0 RF: 0 pregabalin [Lyrica] 150 mg capsule 300 mg PO BID Qty: 360 RF: 3 potassium citrate 10 mEq (1,080 mg) tablet extended release 1,080 mg PO BID 90 Days Qty: 180 RF: 1 allopurinol 100 mg tablet 100 mg PO BID 90 Days Qty: 180 RF: 1 cholecalciferol (vitamin D3) 1,250 mcg (50,000 unit) capsule 1,250 mcg PO MONTHLY Qty: 12 RF: 0 albuterol sulfate 90 mcg/actuation HFA aerosol inhaler 3 inh inhalation Q6H PRN (Reason: shortness of breath or wheezing) Qty: 8 RF: 0 No Action warfarin 5 mg tablet See Rx Instructions PO UD RF: 0 Discharge Orders: Discharge Order (Routine); Ordered 07/15/20 Ordered By: Marizol South/Other Patient Handouts: COVID-19 Home Care, COVID-19 Plasma Donation, What to Know When TakingWarfarin, Warfarin tablets Admission Data Admit Date/Time: 07/08/20 15:45 Attending Provider: Marizol Ramirez Admit Provider: Danny Farah Primary Care Provider: Stef Encarnacion Other Interventions: Discharge Summary Assessment (RN) Last Done: 07/15/20 14:47 Coding Level of Care Code D/C Day Management >30 mins Diagnoses COVID-19 U07.1 Hypoxia R09.02 Gastritis K29.70 Hypertension I10 History of pulmonary embolism Z86.711 Insomnia G47.00 Constipated K59.00 Chronic kidney disease, stage III (moderate) N18.3 DVT prophylaxis Z29.9
== END 2020-07-15 15:44 | disposition home or self-care (01) | DRG 177 ==
LOC: ED 09:51 → 3W 15:45 → SUATTDRO 15:45 → 3W 17:23

== ENCOUNTER 2022-09-07 09:14 | Observation (INO) ==
--- NOTE | 2022-08-22 13:11 | PAT Medication Instructions ---
Medication Instructions Date of Service August 22, 2022 Home Medications Medication Instructions Recorded allopurinol 100 mg tablet 100 mg PO BID 90 days #180 tabs 12/22/21 pregabalin 150 mg capsule (Lyrica) 300 mg PO BID #360 caps 06/28/22 warfarin 5 mg tablet See Rx Instructions PO UD #120 tabs 08/14/22 lisinopril 10 mg-hydrochlorothiazide 12.5 mg tablet 1 tab PO QAM peg 400-propylene glycol 0.4 %-0.3 % eye drops (Systane (propylene glycol)) 1 drp ophthalmic (eye) QID PRN Dry Eye(S) pravastatin 20 mg tablet 20 mg PO HS furosemide 40 mg tablet (Lasix) 40 mg PO DAILY PRN Edema allopurinol 100 mg tablet 100 mg PO BID Centrum Silver Men) 1 tab PO 3XWK pregabalin 150 mg capsule (Lyrica) 300 mg PO BID warfarin 5 mg tablet See Rx Instructions PO UD potassium citrate 10 mEq (1,080 mg) tablet,extended release 10 meq PO BID psyllium husk 3.4 gram/5.4 gram oral powder (Metamucil) 1 tbsp PO QAM ASK your prescriber and surgeon warfarin 5 mg tablet See Rx Instructions PO UD DO NOT take the morning of surgery lisinopril 10 mg-hydrochlorothiazide 12.5 mg tablet 1 tab PO QAM furosemide 40 mg tablet (Lasix) 40 mg PO DAILY PRN Edema Centrum Silver Men) 1 tab PO 3XWK potassium citrate 10 mEq (1,080 mg) tablet,extended release 10 meq PO BID psyllium husk 3.4 gram/5.4 gram oral powder (Metamucil) 1 tbsp PO QAM Take morning of surgery With a small sip of water, OTHERWISE NOTHING TO EAT OR DRINK AFTER MIDNIGHT: peg 400-propylene glycol 0.4 %-0.3 % eye drops (Systane (propylene glycol)) 1 drp ophthalmic (eye) QID PRN Dry Eye(S) (if needed) allopurinol 100 mg tablet 100 mg PO BID pregabalin 150 mg capsule (Lyrica) 300 mg PO BID Take evening before surgery peg 400-propylene glycol 0.4 %-0.3 % eye drops (Systane (propylene glycol)) 1 drp ophthalmic (eye) QID PRN Dry Eye(S) (if needed) pravastatin 20 mg tablet 20 mg PO HS furosemide 40 mg tablet (Lasix) 40 mg PO DAILY PRN Edema (if needed) allopurinol 100 mg tablet 100 mg PO BID pregabalin 150 mg capsule (Lyrica) 300 mg PO BID potassium citrate 10 mEq (1,080 mg) tablet,extended release 10 meq PO BID Other Notes If you have any questions please call us at [phone] or [phone] or [phone] or [phone]
--- NOTE | 2022-08-25 09:49 | Anesthesiology Consultation ---
Date of Service August 25, 2022 Assessment & Plan (1) Encounter for pre-operative examination: - Check coags AM DOS (warfarin instructions per surgeon/prescriber) - COVID screening: Per assessment on 08/25: No known COVID-19 positive contacts or current COVID-19 related symptoms. Travel screen negative. Patient vaccinated. At surgeon discretion if preop Covid testing being done. - Outpatient joint assessment: Pt currently scheduled for inpatient pathway. If surgeon requests review for outpatient joint pathway, patient is not recommended candidate for outpatient joint program from anesthesia standpoint. - Cardiology office visit (08/18/22): "He is currently stable and asymptomatic from a cardiovascular standpoint with no anginal symptoms occurring at >4 METS of activity. He has no evidence of CHF or significant valvular abnormality. BP is adequately controlled. ECG today shows sinus bradycardia at 56 bpm and is otherwise normal. Given this information, patient is at an acceptable risk to proceed with upcoming surgery without any additional cardiovascular testing or intervention.. He was initially seen in September 2014 after was noted on CT scan to have a 4.6 centimeter ascending aortic aneurysm on a study obtained to evaluate his nephrolithiasis with Urology, Dr. Rodgers. Echocardiogram was obtained but visualization of the ascending aorta was limited. Initially was undergoing almost yearly surveillance chest CTs which have not shown any significant change in aortic aneurysm dimensions." Chart Review Chart Review: Acceptable Risk for Surgery and Patient seen in Pre Admission Testing Teaching & Discussion Pre-Anesthesia Teaching/Discussion Notes: Instructed NPO after midnight before surgery,except medications with 15 cc of water. Medication instructions provided according to the PAT guidelines. History Surgery Operation Date: 09/07/22 12:55 Proposed Procedures p Left Total Shoulder Arthroplasty Reverse, Distal Clavicle Excision - Pawan Sloan MD Height/Weight Height: 5 ft 8 in Weight: 121.3 kg Allergies Allergy/AdvReac Type Severity Reaction Status Date / Time gabapentin Allergy Intermediate Rash Verified 08/22/22 11:48 tramadol Allergy Intermediate Rash and Verified 08/22/22 11:48 itchiness hydrocodone Allergy Mild itchy Verified 08/22/22 11:48 oxycodone Allergy Mild itchy Verified 08/22/22 11:48 carbamazepine Allergy Unknown Unknown Verified 08/22/22 11:48 ciprofloxacin Allergy Unknown Unknown Verified 08/22/22 11:48 Medications Home Medications Medication Instructions Recorded Confirmed Last Taken lisinopril 10 1 tab PO QAM #0 tabs 08/31/12 08/22/22 06/29/20 mg-hydrochlorothiazide 12.5 mg tablet peg 400-propylene glycol 0.4 %-0.3 1 drp ophthalmic (eye) QID PRN Dry 02/28/16 08/22/22 Unknown % eye drops (Systane (propylene Eye(S) #0 mL glycol)) pravastatin 20 mg tablet 20 mg PO HS ##0 02/28/16 08/22/22 06/29/20 furosemide 40 mg tablet (Lasix) 40 mg PO DAILY PRN Edema #0 tabs 09/08/16 08/22/22 Unknown allopurinol 100 mg tablet 100 mg PO BID 90 days #180 tabs 12/22/21 08/22/22 Unknown rndvmewl-gcr-yftau acid 300 1 tab PO 3XWK 06/07/22 08/22/22 Unknown mcg-lycopene 600 mcg-lutein 300 mcg tablet (Centrum Silver Men) pregabalin 150 mg capsule (Lyrica) 300 mg PO BID #360 caps 06/28/22 08/22/22 Unknown warfarin 5 mg tablet See Rx Instructions PO UD #120 tabs 08/14/22 08/22/22 Unknown potassium citrate 10 mEq (1,080 10 meq PO BID 08/22/22 08/22/22 Unknown mg) tablet,extended release psyllium husk 3.4 gram/5.4 gram 1 tbsp PO QAM 08/22/22 08/22/22 Unknown oral powder (Metamucil) Past Medical History Medical History Aortic aneurysm CT 07/08/2020- Ascending aorta fusiform aneurysm 4.4 cm unchanged Follows with Dr. Marshall Chronic kidney disease, stage III (moderate) History of COVID-19 06/2020- PNA, admitted to [facility] [place] for 1 week > no current issues History of malignant melanoma Left side of neck History of pulmonary embolism 2015 (unknown cause), currently on warfarin Hypercholesterolemia Hypertension Osteoarthritis Stone in kidney Hx Trigeminal neuralgia No issues x several years Exercise / Class Metabolic Activity III < 4 Walking/Shop/Light housework Past Family History Family History Family/Other Diabetes Heart disease Nephrolithiasis Other No family history of adverse response to anesthesia Past Surgical History Surgical History History of back surgery L4-L5 with screws History of cancer surgery Left side of neck resection + lymph node removal History of cataract surgery bilateral History of colonoscopy History of cystoscopy History of inguinal hernia repair History of right shoulder replacement History of sinus surgery History of tonsillectomy and adenoidectomy History of tooth extraction History of total left knee replacement (TKR) History of total right knee replacement (TKR) Past Anesthesia History No Hx of Anesthesia Complications and No Family Hx of Anesthesia Complications History of PONV No Hx of PONV and No Hx of Motion Sickness Social History Smoking Status: Never smoker Do You Dip or Chew Tobacco: No Hx Alcohol Use: No Hx Substance Use: No substance use type: does not use Review of Systems Patient denies chest pain, shortness of breath, fever, chills, cough, wheezing, palpitations. Physical Exam Vital Signs VITALS BP 106/66 P 65 TEMP 97.8 SP02 96%RA RESP 18 PHYSICAL Full cervical extension range of motion. Full TMJ range of motion. TMD 3 finger breaths Mallampati Score 4 (small oral opening) Dentition: several missing teeth including upper front Lungs: clear throughout to auscultation Cardiac: regular rate and rhythm, no murmurs noted Spine: normal Carotid arteries: negative bruit Extremities: no edema Thick neck Lab Results Anesthesia Preop Results Results Anesthesia Widget: WBC 8.01 K/ul (4.8-10.8) 08/25/22 Hgb 14.2 g/dl (14.0-18.0) 08/25/22 Hct 42.8 % (42.0-52.0) 08/25/22 Plt 145 K/uL (130-400) 08/25/22 Na 140 mmol/L (136-145) 08/25/22 K 4.5 mmol/L (3.5-5.1) 08/25/22 Cl 105 mmol/L (98-107) 08/25/22 CO2 29 mmol/L (21-32) 08/25/22 BUN 31 mg/dl (6-23) H 08/25/22 Creat 1.27 mg/dl (0.6-1.4) 08/25/22 Glucose Level 87 mg/dl (70-99(Fasting)) 08/25/22 PT 17.6 Seconds (9.0-12.0) H 08/25/22 PTT 34.9 Seconds (21.0-31.0) H 08/25/22 INR 1.7 (0.9-1.1) H 08/25/22 Urine Color Yellow 08/25/22 Urine Appearance Clear (Clear) 08/25/22 Urine pH 7.0 (4.5-7.5) 08/25/22 Urine Specific [place] 1.021 (1.000-1.030) 08/25/22 Urine Protein Negative (Negative) 08/25/22 Urine Glucose (UA) Negative (Negative) 08/25/22 Urine Ketones Negative (Negative) 08/25/22 Urine Blood Negative (Negative) 08/25/22 Urine Nitrite Negative (Negative) 08/25/22 Urine Bilirubin Negative (Negative) 08/25/22 Urine Urobilinogen Negative (Negative) 08/25/22 Urine Leukocyte Esterase Negative (Negative) 08/25/22 Blood Type A Positive 08/25/22 Antibody Screen NEGATIVE 08/25/22 Testing Electrocardiogram Date: 08/18/22 Findings: + SB @ (56) Chest X-Ray Date: 08/25/22 FINDINGS: No lines and tubes are seen. Cardiomegaly is noted. The lungs are clear. No evidence of pleural effusion or pneumothorax. IMPRESSION: No acute chest disease. Echocardiogram Date: 01/24/20 LVEF 55 to 60%. No regional motion abnormality. Mild concentric LVH. Mildly dilated ascending aorta (4.1 cm). Compared with prior study 09/19/2014, no significant changes per report. Other Testing Brain MRI (08/17/22) Indication: Stage 3 melanoma, r/o brain mets FINDINGS: There is no mass, hematoma, midline shift, or acute infarct. The ventricles and sulci demonstrate mild age-related involutional changes. Scattered foci of T2 hyperintensity seen within the periventricular and subcortical white matter are nonspecific but suggestive of mild microvascular ischemic changes. The major vascular flow voids at the skull base are well- maintained. Mild mucosal thickening within the ethmoid air cells. There is a trace right mastoid effusion. Prior bilateral lens replacement. No abnormal enhancement. Specifically, no intracranial lesions identified to suggest metastatic disease. IMPRESSION:No evidence for intracranial metastatic disease. Chest CTA (07/08/20) Patchy bilateral groundglass opacities are suspicious for viral pneumonia. Correlate with Covid status. Mild mediastinal adenopathy. Cardiomegaly without evidence of acute pulmonary emboli. Unchanged small chronic nonocclusive linear pulmonary embolus within the right lower lobe. 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 COVID-19 Risk Screen Screening Information COVID-19 Screen Date: 08/25/22 Exposure 21 Days Family/Household +COVID Last 21 Days: No Exposure 10 Days Any COVID Exposure Last 10 Days: No Symptoms Last 10 Days Experienced COVID Sx Last 10 Days: No + COVID 0-90 Days COVID + in Last 0-90 Days: No
--- NOTE | 2022-09-06 19:23 | History & Physical Report ---
Date of Service September 06, 2022 Assessment & Plan (1) Primary osteoarthritis, left shoulder: Plan: Treatment options discussed with patient. He has failed conservative measures and would like to proceed with surgery. Risks, benefits and alternatives to surgery including but not limited to infection, DVT, pain, stiffness, need for revision surgery, damage to blood vessels, damage to nerves, PE, , were discussed with the patient and they wish to proceed. Plan on left total shoulder arthroplasty, open distal clavicle excision. Surgery scheduled for 09/07/[address] Sloan at [facility]. Plan on outpatient physical therapy. All questions answered. F/u post op. History of Present Illness Chief Complaint: Left shoulder pain Primary Care Provider: Stef Encarnacion MD 76yo male with PMHx significant for hx of PE, HTN, melanoma, right shoulder replacement who presents with ongoing left shoulder pain. Pain is interfering w ith his daily activities. He has failed conservative measures and would like to proceed with surgical intervention. Patient denies headaches, sweats, fevers, chills, double vision, blurred vision, cough, sore throat, dysphagia, chest pain, sob, wheezing, n/v/d/c, numbness, tingling, fatigue, urinary symptoms, mood disorders. ROS positive for left shoulder pain and stiffness. Allergies Allergy/AdvReac Type Severity Reaction Status Date / Time gabapentin Allergy Intermediate Rash Verified 08/22/22 11:48 tramadol Allergy Intermediate Rash and Verified 08/22/22 11:48 itchiness hydrocodone Allergy Mild itchy Verified 08/22/22 11:48 oxycodone Allergy Mild itchy Verified 08/22/22 11:48 carbamazepine Allergy Unknown Unknown Verified 08/22/22 11:48 ciprofloxacin Allergy Unknown Unknown Verified 08/22/22 11:48 Home Medications Medication Instructions Recorded Confirmed Type lisinopril 10 1 tab PO QAM #0 tabs 08/31/12 09/06/22 History mg-hydrochlorothiazide 12.5 mg tablet peg 400-propylene glycol 0.4 %-0.3 1 drp ophthalmic (eye) QID PRN Dry 02/28/16 09/06/22 History % eye drops (Systane (propylene Eye(S) #0 mL glycol)) pravastatin 20 mg tablet 20 mg PO HS ##0 02/28/16 09/06/22 History furosemide 40 mg tablet (Lasix) 40 mg PO DAILY PRN Edema #0 tabs 09/08/16 09/06/22 History allopurinol 100 mg tablet 100 mg PO BID 90 days #180 tabs 12/22/21 09/06/22 Rx qcnhdczi-yqd-aufbk acid 300 1 tab PO 3XWK 06/07/22 09/06/22 History mcg-lycopene 600 mcg-lutein 300 mcg tablet (Centrum Silver Men) pregabalin 150 mg capsule (Lyrica) 300 mg PO BID #360 caps 06/28/22 09/06/22 Rx warfarin 5 mg tablet See Rx Instructions PO UD #120 tabs 08/14/22 09/06/22 Rx potassium citrate 10 mEq (1,080 10 meq PO BID 08/22/22 09/06/22 History mg) tablet,extended release psyllium husk 3.4 gram/5.4 gram 1 tbsp PO QAM 08/22/22 09/06/22 History oral powder (Metamucil) Past Med/Surg History Medical History Aortic aneurysm CT 07/08/2020- Ascending aorta fusiform aneurysm 4.4 cm unchanged Follows with Dr. Marshall Chronic kidney disease, stage III (moderate) History of COVID-19 06/2020- PNA, admitted to [facility] for 1 week > no current issues History of malignant melanoma Left side of neck History of pulmonary embolism 2015 (unknown cause), currently on warfarin Hypercholesterolemia Hypertension Osteoarthritis Stone in kidney Hx Trigeminal neuralgia No issues x several years Surgical History History of back surgery L4-L5 with screws History of cancer surgery Left side of neck resection + lymph node removal History of cataract surgery bilateral History of colonoscopy History of cystoscopy History of inguinal hernia repair History of right shoulder replacement History of sinus surgery History of tonsillectomy and adenoidectomy History of tooth extraction History of total left knee replacement (TKR) History of total right knee replacement (TKR) Family History Family/Other Diabetes Heart disease Nephrolithiasis Other No family history of adverse response to anesthesia Social History Smoking Status: Never smoker Second Hand Exposure: No; Hx Alcohol Use: No Hx Substance Use: No Preferred Language: Syriac Communication Ability: Effective Security Infrastructure Engineer Required: No Beliefs That Will Affect Care: None Current Living Situation: Spouse current occupational status: retired Feels Safe at Home: Yes Seatbelt Use: always Assistive Devices: Glasses Review of Systems All systems reviewed & are unremarkable except as noted in HPI & below Physical Exam Constitutional: well developed and well nourished; no acute distress Eyes: PERRL, conjunctivae normal, anicteric sclerae ENMT: external ear and nose normal, oropharynx normal Neck: trachea midline, no thyromegaly Respiratory: normal respiratory effort, lungs clear to auscultation Cardiovascular: RRR, no murmur, no edema Musculoskeletal: Left shoulder: Tenderness anterior glenoid. Active painful ROM. FF to 120 degrees, abduction to 70 degrees, ER to 30 degrees. Normal strength. Positive impingement signs. Skin: no rashes, warm and dry Neurologic: patellar DTR's 2+ bilat, sensation intact Psychiatric: A+Ox3, euthymic affect Results & Data Diagnostic Findings Left shoulder radiographs demonstrate endstage osteoarthritis, bone on bone GH joint with large inferior humeral spur. AC joint arthritis. MRI demonstrates an intact rotator cuff.
[~2022-09-07 09:14] MED LIST changes: +ACETAMINOPHEN 500 MG TAB PO SCH; -ALL100 PO; +BUPIVACAINE 0.5 % 5 MG/1 ML PF 10ML VIAL ONE; -COEN10CA5 PO; +CeleBREX 200 MG CAP PO SCH; +FAMOTIDINE 20 MG TAB PO SCH; -FRS/40 PO; -GLUC10007 PO; +LR 15ML/HR IV SCH; -LSN/10125 PO; +METOCLOPRAMIDE HCL 10 MG TABLET PO SCH; +MIDAZOLAM HCL 1 MG/ML 2ML VIAL ONE; -NORT75CA2 PO; -POLYSOL4 OP; -POTA1080 PO; -PREG1CAP70 PO; -PRVC/20 PO; -TAPE50TA5 PO; +TRANEXAMIC ACID 1,000 MG **IV Intra-op IV SCH; +TRANEXAMIC ACID 1,000 MG **IV Pre-op IV SCH; -WARF10TA4 PO; +dexAMETHasone 4 MG TAB PO SCH; +fentaNYL citrate PF 100 MCG/2 ML VIAL ONE
[2022-09-07] MEDS: ALLERGY Noted to ORDERED Medication SCH ×4 (09:59→16:57)
[2022-09-07 10:38] LABS: INR 1.1 (0.9-1.1); Partial Thromboplastin Time 27.8 Seconds (21.0-31.0); Prothrombin Time 11.2 Seconds (9.0-12.0)
[2022-09-07] MEDS ORDERED: ePHEDrine sulfate 50 MG/ML AMP IV PRN (11:00)
[2022-09-07] MEDS ORDERED: fentaNYL citrate PF 100 MCG/2 ML VIAL IV PRN (11:00)
[2022-09-07] MEDS ORDERED: ATROPINE SULFATE 0.1 MG/ML 10ML SYR IV PRN (11:00)
[2022-09-07] MEDS ORDERED: PROMETHAZINE HCL 6.25 MG in SODIUM CHLORIDE 0.9% 50 ML IV PRN (11:00)
[2022-09-07] MEDS ORDERED: ONDANSETRON INJ 2 MG/ML 2 ML VIAL IV PRN ×2 (11:00→16:43)
[2022-09-07] MEDS ORDERED: EPINEPHrine HCL INJ 1 MG/ML 30ML ONE (11:10)
--- NOTE | 2022-09-07 11:34 | History & Physical Bridge Note ---
Date of Service September 07, 2022 History & Physical Bridge Note I have examined the patient, reviewed the History & Physical and in the interval since the performance of the History & Physical I have noted the following changes of clinical significance: no changes noted
[2022-09-07] MEDS ORDERED: LIDOCAINE 2% MPF LOCAL 5 ML VIAL ONE (12:19)
[2022-09-07] MEDS ORDERED: ONDANSETRON INJ 2 MG/ML 2 ML VIAL ONE (12:19)
[2022-09-07] MEDS ORDERED: PROPOFOL IV EMULSION 10 MG/ML 20 ML VIAL IV ONE (12:19)
[2022-09-07] MEDS ORDERED: ePHEDrine sulfate 50 MG/ML SYR ONE (12:20)
[2022-09-07] MEDS ORDERED: EpINEphrine HCL INJ 1 MG/ML 1ML SYRINGE ONE (12:20)
[2022-09-07] MEDS ORDERED: PHENYLEPHRINE 100MCG/ML 5ML SYR ONE (12:20)
--- NOTE | 2022-09-07 15:16 | Post Operative Brief Note ---
Immediate Post Op Note v1 Date of Surgery September 07, 2022 Pre & Post Diagnosis Operation Date: 09/07/22 12:00 Pre-Op Diagnosis: Left shoulder end-stage glenohumeral osteoarthritis, biceps tendinopathy, AC joint osteoarthritis, obesity BMI 40.2. Post-Op Diagnosis: Same. I identified the patient and participated in the time-out.: Yes Procedure Operation Date: 09/07/22 12:00 Actual Procedures p Left total shoulder arthroplasty, distal clavicle excision, biceps tenodesis, some level increased difficulty due to morbid obesity.(Left) - Pawan Sloan MD Surgeon Pawan Sloan MD Skin Care Technician Jake CHRISTIANSON Estimated Blood Loss 100 Findings Consistent with Post-Op Diagnosis Specimens Humeral head and distal clavicle Drains Hemovac Drain Anesthesia Type General Regional Complications none Disposition Disposition: Recovery Room Overlapping Procedure I was immediately available: during the entire case.
--- NOTE | 2022-09-07 15:33 | Operative Report ---
Post Operative Report Pre & Post Diagnosis Operation Date: 09/07/22 12:00 Pre-Op Diagnosis: Left shoulder end-stage glenohumeral and AC joint osteoarthritis, obesity BMI 40.2. Post-Op Diagnosis: Left shoulder end-stage glenohumeral and AC joint osteoarthritis, biceps tendinopathy biceps tenosynovitis, obesity BMI 40.2. I identified the patient and participated in the time-out.: Yes Procedure Operation Date: 09/07/22 12:00 Actual Procedures p Left total shoulder arthroplasty, distal clavicle excision, biceps tenodesis with transfer to conjoined tendon, increased difficulty obesity BMI 40.2.(Left) - Pawan Sloan MD Surgeon Pawan Sloan MD Drainage Design Coordinator Jake CHRISTIANSON Estimated Blood Loss 100 Findings Consistent with Post-Op Diagnosis Specimens Humeral head and distal clavicle Drains 2 Hemovac Anesthesia Type General Regional Complications none Disposition Accompanied Patient To Recovery: No Indications 76-year-old male with chronic progressive osteoarthritis his left shoulder. Patient has hypertrophic grade 4 AC joint osteoarthritis and advanced glenohumeral osteoarthritis with large inferior osteophyte and intact rotator cuff with intra-articular biceps tendinopathy. Description of Procedure The patient was taken to the operating room and anesthetized under a general and regional block anesthesia. A towel roll was placed under the medial border of the scapula of the left shoulder. The patient's head was placed on a foam headrest and protective eyewear was placed and the extremities were well padded. Patient was morbidly obese so took a little more time to do the set up than typical. The arm was draped free in order to manipulate the shoulder as necessary. The shoulder exam demonstrated 120 degrees forward flexion ,90 degrees AB duction, 30 degrees external rotation, 45 degrees internal rotation. The shoulder was sterilely prepped and draped in the usual sterile fashion. An anterior deltopectoral approach was performed. A longitudinal incision was made in the interval. The skin was incised sharply and a moderately deep layer of subcutaneous tissues dissected down to the fascia. The cephalic vein was identified and retracted laterally with the deltoid. Any crossing veins were tied off with silk ties and divided. The clavipectoral fascia was divided at the lateral margin of the conjoined tendon and divided up to the level of the coracoacromial ligament which was preserved. The upper 1 cm of the pectoralis was released for inferior exposure. The biceps tendon findings demonstrated tenosynovitis but a normal-appearing biceps tendon up through the biceps groove. Intra-articularly there was widening the biceps tendon consistent with chronic tendinopathy. The rotator cuff tendon findings demonstrated intact rotator cuff. The circumflex vessels were identified and tied off with silk ties and divided laterally. The fibers and subscapularis were split longitudinally at the level of the circumflex vessels down to the capsule and then reflected off the inferior capsule using a Kitner elevator. The axillary nerve was identified with a tug test and protected with a blunt Donna retractor. The rotator interval was opened up and extended down to the glenoid. The biceps tendon was identified and tenotomy was performed and a Vicryl suture was placed in the tendon as a traction suture for later tenodesis. The subscapularis tendon was taken down with a trans-tendinous incision leaving a cuff of tissue for repair on the lesser tuberosity. The incision was carried down to the tendon and the capsule and a #1 Vicryl suture was placed into the free end of the subscapularis tendon. The capsule was subperiosteally dissected off the inferior neck of the humerus exposing the humeral osteophytes which demonstrated very large inferior humeral osteophytes. The osteophytes were excised with an artist chisel and a rongeur. The capsular release along the inferior neck of the humerus was completed. The humerus was then retracted posterior to the glenoid with a Fukuda retractor. The remainder of the biceps tendon and labrum was resected. The glenoid findings demonstrated large posterior osteophytes on the glenoid. These osteophytes were resected with an artist chisel and a rongeur.. I did an anterior inferior and posterior inferior release with electrocautery on bone and a Beach elevator with the axillary nerve continuing to be protected with the blunt Hohmann retractor inferiorly. When the releases were completed and the humeral head was exposed with some extension and external rotation and in anatomic head cut was made using the oscillating saw. The Tornier ascend flex total shoulder arthroplasty was used including the Cortiloc glenoid component. Attention was first taken to preparation of the humeral shaft. A centralizing awl was used followed by broaches up to the appropriate templated size. The trial broach was left in place and a cut protector was placed. The humerus was then retracted posterior to the glenoid using a Bankart retractor anteriorly and blunt Donna and posterior Tornier glenoid retractor. A central drill hole was made into the glenoid. The glenoid was sized for a size 40 radius large Cortiloc component. The glenoid was reamed and the central drill widened and the guide for the 3 peripheral peg holes was placed in the peg holes were drilled and a trial component was placed with a tight fit. The trial was removed and the glenoid was irrigated with pulsatile lavage antibiotic solution and the drill holes were dried and packed with epinephrine-soaked tampons for hemostasis. The Palacos G cement was vacuum mixed. The final component was cemented into position and held in position with pressure until the cement cured. A humeral head trial was placed. A trial reduction was performed and the shoulder was stable. The trial was removed and the humerus and canal were irrigated with antibiotic solution with bacitracin. 3 drill holes were made into the hard bone in the bicipital groove lateral to the lesser tuberosity and 3 #5 FiberWire transosseous sutures were placed for repair of the subscapularis. After further irrigation of the canal and the final components were assembled. The final components were the 6 a standard humeral stem and the 52 x 23 high offset humeral head. The implant was then impacted into the humerus with a tight press-fit. The humerus was reduced to the glenoid and stability verified. The subscapularis was repaired with the #5 FiberWire sutures in a Jeffery-Andrew suture technique and lateral row fixation with [id number] #2 FiberWire in the soft tissue. The rotator interval was closed and maximal external rotation. The biceps tendon long head was transferred under normal tension to the conjoined tendon sutured with interrupted [id number] #2 FiberWire sutures securing the long head biceps tendon to the conjoined tendon. It was taken through range of motion and repair was secure. The pectoralis was then closed with [id number] #2 FiberWire suture. Moist sponge was placed into the incision and then attention was taken to the AC joint. A transverse incision was made over the AC joint. The skin was incised sharply and subcutaneous flaps were elevated. Bleeders were cauterized as needed. The fascia was divided longitudinally over the AC joint exposing 1 cm distal clavicle. Careful subperiosteal elevation performed with a marroquin elevator. There was hypertrophy and advanced arthritis of the AC joint with osteophytes. Approximate 1 cm distal clavicle was resected with an oscillating saw. The wound was irrigated hemostasis obtained and then a #1 Vicryl ripstop suture was placed into the deltoid fascia anteriorly. The deltotrapezial fascia was then repaired with [id number] #2 FiberWire sutures with secure repair using the Vicryl suture as a ripstop. The arm was taken through range of motion and deltoid repair was secure. 2 Hemovac drains were placed into the deltopectoral incisional area.. The deltopectoral interval was closed with ffajwq-[id number] #1 Vicryl sutures. The subcutaneous tissues were closed in both incisions with interrupted 2-0 Vicryl and the skin was closed with raul and sterile dressings were applied. The patient tolerated the procedure well. Candido CHRISTIANSON my physician assistant guest services manager, assisted in soft tissue retraction instrument management suture management and assisted in the subcutaneous and skin closure and will participate in the postoperative care the patient. There was some increased level difficulty due to his obesity which added 25 to 30 minutes of the procedure time I attest to the content of the Intraoperative Record and any orders documented therein. Any exceptions are noted below.
--- NOTE | 2022-09-07 16:11 | Anesthesiology Progress Note ---
Date of Service September 07, 2022 Anesthesia Post Procedure Vital Signs Vital Signs: Temp Pulse Pulse Resp BP Pulse Ox O2 Del Method 09/07/22 15:55 93 H 16 136/80 92 Oxymask 09/07/22 15:45 94 H 16 130/78 94 Oxymask 09/07/22 15:35 93 H 13 126/74 94 Oxymask 09/07/22 15:27 36 C L 93 H 14 128/74 96 Oxymask 09/07/22 09:44 36.8 C 66 20 119/73 95 Room Air O2 Flow Rate 09/07/22 15:55 5 09/07/22 15:45 5 09/07/22 15:35 5 09/07/22 15:27 5 09/07/22 09:44 Transfer of Care Handoff Completed per policy Notes Mental Status: alert / awake / arousable Patient Amnestic to Procedure: Yes Nausea / Vomiting: adequately controlled Pain: adequately controlled Airway Patency, RR, SpO2: stable & adequate BP & HR: stable & adequate Hydration State: stable & adequate Anesthetic Complications: no major complications apparent
--- NOTE | 2022-09-07 16:16 | XRay Report ---
XR shoulder LT min 2V routine CLINICAL HISTORY: Post shoulder surgery COMPARISON STUDY: None. FINDINGS: Status post a left total shoulder arthroplasty. The hardware appears intact. No fracture or dislocation within the left shoulder. Acromioplasty is also noted. Skin raul and surgical drains are in place. IMPRESSION: Postoperative changes within the left shoulder. No evidence for hardware complication. ACT 112: Negative or not required by law. Electronically signed by: Rosalio Pop M.D. 09/07/2022 4:14 PM
[2022-09-07] MEDS ORDERED: METOCLOPRAMIDE HCL INJ 5 MG/ML 2 ML VIAL IV PRN (16:43)
[2022-09-07] MEDS ORDERED: NALOXONE HCL 0.4 MG/1 ML VIAL/CARP IV PRN (16:43)
[2022-09-07] MEDS ORDERED: MAGNESIUM HYDROXIDE SUSP 30 ML UDC PO PRN (16:43)
[2022-09-07] MEDS ORDERED: FUROSEMIDE 40 MG TAB PO PRN (16:43)
[2022-09-07] MEDS ORDERED: SODIUM CHLORIDE 0.9% 1000ML 1,000 ML IV SCH (16:43)
[2022-09-07] MEDS ORDERED: TAMSULOSIN HCL 0.4 MG CAP PO PRN (16:43)
[2022-09-07] MEDS ORDERED: HYDROmorphone INJ 0.5 MG/0.5 ML SYR IV PRN (16:43)
[2022-09-07] MEDS ORDERED: bisacodyL 10 MG SUPP PR PRN (16:43)
[2022-09-07] MEDS ORDERED: ARTIFICIAL TEARS OP PRN (16:49)
[2022-09-07] MEDS ORDERED: WARFARIN SOD 7.5 MG TAB PO ONE (18:00)
[2022-09-07] MEDS: ceFAZolin 2000MG 2,000 MG/15 ML SYR IV SCH (20:03)
[2022-09-07] MEDS: POTASSIUM CITRATE 10 MEQ TAB PO SCH (20:04)
[2022-09-07] MEDS: PREGABALIN 150 MG CAP PO SCH (20:05)
[2022-09-07] MEDS: DOCUSATE SODIUM 100 MG CAP PO SCH (20:06)
[2022-09-07] MEDS: ACETAMINOPHEN 500 MG TAB PO SCH (20:07)
[2022-09-07] MEDS ORDERED: SENNA 8.6 MG TAB PO SCH (21:00)
[2022-09-07] MEDS ORDERED: PRAVASTATIN SOD 20 MG TAB PO SCH (21:00)
[2022-09-08] MEDS: ACETAMINOPHEN 500 MG TAB PO SCH (05:15)
[2022-09-08] MEDS: ceFAZolin 2000MG 2,000 MG/15 ML SYR IV SCH (05:15)
--- NOTE | 2022-09-08 07:54 | Orthopedic Progress Note ---
Date of Service September 08, 2022 Assessment & Plan (1) Primary osteoarthritis, left shoulder: Plan: Postop day #1 left total shoulder arthroplasty, open distal clavicle excision -PT/OT: No active motion of the shoulder. -Pain management as written. Patient has several allergies. Will discharge home with p.o. Dilaudid if needed. He will call if any issues. -A.m. labs are pending -DVT prophylaxis: Patient on warfarin at home. Received 15 mg yesterday and plan on 10 mg today and then resume his 7.5 mg dosing. -Discharge planning: Plan on discharge home when stable. Likely plan to discharge home today as long as pain remains controlled and remained stable. Admission and Anticipated Discharge Date Admission Date: September 07, 2022 Subjective Patient is postop day #1 left total shoulder. He is feeling well this morning. Pain is controlled. No current complaints. Denies chest pain, shortness of breath, nausea/vomiting/diarrhea, headaches or dizziness. Review of Systems Review of Systems: All systems reviewed & are unremarkable except as noted in Subjective Physical Exam Physical Exam: Left shoulder: Dressing is clean, dry, intact. Hemovac in place. Fingers are mobile with good photograph inspector strength. Some numbness still in his fingers residual from nerve block. Otherwise distally neurovascular status and sensation grossly intact Results & Data Vital Signs (Past 12 Hours) Vital Signs Temp Pulse Resp BP Pulse Ox O2 Del Method 09/08/22 07:23 36.6 C 72 16 118/67 94 Room Air 09/08/22 02:40 36.8 C 72 16 114/68 94 Room Air 09/07/22 22:25 36.4 C L 90 16 108/67 93 Room Air
[2022-09-08] MEDS: POTASSIUM CITRATE 10 MEQ TAB PO SCH (07:55)
[2022-09-08] MEDS: DOCUSATE SODIUM 100 MG CAP PO SCH (07:55)
[2022-09-08] MEDS: PREGABALIN 150 MG CAP PO SCH (07:58)
[2022-09-08 08:16] LABS: Basophils # (auto) 0.01 K/uL (0-0.2); Basophils % (auto) 0.1 %; Hematocrit (blood only) 40.9 % (42.0-52.0); Hemoglobin 13.6 g/dl (14.0-18.0); Immature Granulocytes # (auto) 0.09 K/uL (0.01-0.20); Immature Granulocytes % (auto) 0.5 %; Lymphocytes # (auto) 1.72 K/uL (1.2-3.4); Lymphocytes % (auto) 10.3 %; Mean Corpuscular Hemoglobin 31.9 pg (25.0-34.0); Mean Corpuscular Hgb Conc 33.3 g/dL (32.0-36.0); Monocytes # (auto) 1.03 K/uL (0.11-0.59); Monocytes % (auto) 6.2 %; Neutrophils # (auto) 13.81 K/uL (1.40-6.50); Neutrophils % (auto) 82.9 %; Platelet Count 170 K/uL (130-400); RDW Coefficient of Variation 13.8 % (11.5-14.5); RDW Standard Deviation 48.7 fL (36.4-46.3); Red Blood Count 4.26 M/uL (4.70-6.10); White Blood Count 16.66 K/ul (4.8-10.8)
[2022-09-08 08:38] LABS: BUN Creatinine Ratio 22.7 (10-20); Calcium 8.4 mg/dl (8.6-10.3); Creatinine Clr Calc Pharmacy 51.9 ml/min; Est GFR (African American) 51.3 ml/min; Est GFR (Non-African American) 44.3 ml/min; Potassium 4.9 mmol/L (3.5-5.1)
[2022-09-08] MEDS ORDERED: PSYLLIUM or GUAR GUM FIBER POWDER PACKET PO SCH (09:00)
[2022-09-08] MEDS ORDERED: LISINOPRIL/HCTZ 10/12.5MG TAB PO SCH (09:00)
[2022-09-08] MEDS ORDERED: MULTIVITAMIN TAB PO SCH (09:00)
[2022-09-08] MEDS ORDERED: allopurinoL 100 MG TAB PO SCH (09:00)
[2022-09-08] MEDS ORDERED: LACTATED RINGER'S 500 ML IV ONE (09:25)
--- NOTE | 2022-09-08 11:35 | Hospitalist Consultation ---
Date of Consultation September 08, 2022 Assessment & Plan (1) Primary osteoarthritis, left shoulder: 76yo Male with a PMH of pulmonary embolism on warfarin, CKD3, HTN, OA here for left shoulder replacement. Left Shoulder Osteoarthritis -patient following with ortho -s/p left total shoulder arthroplasty POD 1 -pain managed with tylenol, PRN dilaudid -wound drain in place -pt to f/u with ortho in outpatient, has PT set up [facility] -baseline creatinine 1.27. Creat this am 1.5 -likely due to post op status. Ordered 500ml NSS IVF this am -Outpatient monitoring. Hx. Pulmonary Embolism -per ortho warfarin was increased to 15mg yesterday -was given warfarin 10mg today -tomorrow will resume home dose 7.5mg daily HTN -continue lisinopril/HCTZ Peripheral Neuropathy -continue pregabalin HLD -continue pravastatin Hx. Gout -continue allopurinol (2) Hypertension: (3) Chronic kidney disease, stage 3: (4) History of pulmonary embolism: Supervising Physician Co-Signing Physician Notes Resident Physician Supervision Note: I independently interviewed and examined the patient and verified the marroquin history and physical, reviewed labs and image studies and agree with resident findings and care plan. History of Present Illness Reason for Consultation: med management Attending Physician: Pawan Sloan MD History of Present Illness 76yo Male with a PMH of pulmonary embolism on warfarin, CKD3, HTN, OA here for left shoulder replacement. Patient follows with ortho, was admitted yesterday for left total shoulder arthroplasty tolerated well, his warfarin was increased to 15mg yesterday for DVT prophylaxis, decreased to 10mg warfarin today then resume home dosing 7.5mg daily tomorrow. Patient seen at bedside, calm comfortable cooperative. He feels his surgery went well, doesn't feel any pain, he understands he has wound drainage in place. States he has a good appetite, ambulating without issue, has yet to have a bowel movement, breathing fine on room air. Patient states he has physical therapy lined up and looks forward to participating. States in the past he also had surgery on his right shoulder so he is familiar with the recovery period from shoulder surgery. No concerns at this time. Allergies Allergy/AdvReac Type Severity Reaction Status Date / Time gabapentin Allergy Intermediate Rash Verified 09/07/22 09:48 tramadol Allergy Intermediate Rash and Verified 09/07/22 09:48 itchiness hydrocodone Allergy Mild itchy Verified 09/07/22 09:48 oxycodone Allergy Mild itchy Verified 09/07/22 09:48 carbamazepine Allergy Unknown Unknown Verified 09/07/22 09:48 ciprofloxacin Allergy Unknown Unknown Verified 09/07/22 09:48 Home Medications Medication Instructions Recorded Confirmed Type lisinopril 10 1 tab PO QAM #0 tabs 08/31/12 09/07/22 History mg-hydrochlorothiazide 12.5 mg tablet peg 400-propylene glycol 0.4 %-0.3 1 drp ophthalmic (eye) QID PRN Dry 02/28/16 09/07/22 History % eye drops (Systane (propylene Eye(S) #0 mL glycol)) pravastatin 20 mg tablet 20 mg PO HS ##0 02/28/16 09/07/22 History furosemide 40 mg tablet (Lasix) 40 mg PO DAILY PRN Edema #0 tabs 09/08/16 09/07/22 History allopurinol 100 mg tablet 100 mg PO BID 90 days #180 tabs 12/22/21 09/07/22 Rx szwoxqaw-icn-hpzhv acid 300 1 tab PO 3XWK 06/07/22 09/07/22 History mcg-lycopene 600 mcg-lutein 300 mcg tablet (Centrum Silver Men) pregabalin 150 mg capsule (Lyrica) 300 mg PO BID #360 caps 06/28/22 09/07/22 Rx warfarin 5 mg tablet See Rx Instructions PO UD #120 tabs 08/14/22 09/07/22 Rx potassium citrate 10 mEq (1,080 10 meq PO BID 08/22/22 09/07/22 History mg) tablet,extended release psyllium husk 3.4 gram/5.4 gram 1 tbsp PO QAM 08/22/22 09/07/22 History oral powder (Metamucil) acetaminophen 500 mg tablet 1,000 mg PO Q8 #60 tabs 09/08/22 Rx (Tylenol Extra Strength) hydromorphone 2 mg tablet 2 mg PO Q6H PRN pain #20 tabs 09/08/22 Rx Patient History Medical History Aortic aneurysm CT 07/08/2020- Ascending aorta fusiform aneurysm 4.4 cm unchanged Follows with Dr. Marshall Chronic kidney disease, stage III (moderate) History of COVID-19 06/2020- PNA, admitted to [facility] for 1 week > no current issues History of malignant melanoma Left side of neck History of pulmonary embolism 2016 (unknown cause), currently on warfarin Hypercholesterolemia Hypertension Osteoarthritis Stone in kidney Hx Trigeminal neuralgia No issues x several years Surgical History History of back surgery L4-L5 with screws History of cancer surgery Left side of neck resection + lymph node removal History of cataract surgery bilateral History of colonoscopy History of cystoscopy History of inguinal hernia repair History of right shoulder replacement History of sinus surgery History of tonsillectomy and adenoidectomy History of tooth extraction History of total left knee replacement (TKR) History of total right knee replacement (TKR) Family History Family/Other Diabetes Heart disease Nephrolithiasis Other No family history of adverse response to anesthesia Social History Smoking Status: Never smoker Second Hand Exposure: No; Do You Dip or Chew Tobacco: No; Tobacco Cessation Education Requested by Patient: No Hx Alcohol Use: No Hx Substance Use: No Preferred Language: Israeli Communication Ability: Effective Clerical Office Required: No Beliefs That Will Affect Care: None Current Living Situation: Spouse current occupational status: retired Other Information That Helps Us Care for You: No Feels Safe at Home: Yes Safety Concerns: Feels Safe At This Time Seatbelt Use: always Assistive Devices: None Assistive Devices Comment: reading glasses Physical Exam Constitutional: WD/WN, vitals as above Eyes: PERRL, conjunctivae normal, anicteric sclerae ENMT: external ear and nose normal, oropharynx normal Neck: trachea midline, no thyromegaly Respiratory: normal respiratory effort, lungs clear to auscultation Cardiovascular: Rate/Rhythm: regular rate and regular rhythm Gastrointestinal (Abdomen): Inspection/Auscultation: abdomen normal to inspection Percussion/Palpation: abdomen soft; abdomen nontender Musculoskeletal: bandage and wound drain in place over right shoulder, right arm in sling Skin: no rashes, warm and dry Results & Data Results & Data Vital Signs (Past 12 Hours) Vital Signs Temp Pulse Pulse Pulse Resp BP Pulse Ox 09/08/22 09:25 36.6 C 92 H 72 99 H 16 118/67 94 09/08/22 07:23 36.6 C 72 16 118/67 94 09/08/22 02:40 36.8 C 72 16 114/68 94 O2 Del Method 09/08/22 09:25 09/08/22 07:23 Room Air 09/08/22 02:40 Room Air Resident Activity Tracking Resident Involvement: Resident Care Provided Care Provided: Adult Hospital Medicine
[2022-09-08] MEDS ORDERED: WARFARIN SOD 10 MG TAB PO ONE (16:00)
--- NOTE | 2022-09-09 07:12 | Discharge Summary ---
Date of Service September 09, 2022 Admission HPI Per Admitting Provider 76yo male with PMHx significant for hx of PE, HTN, melanoma, right shoulder replacement who presents with ongoing left shoulder pain. Pain is interfering with his daily activities. He has failed conservative measures and would like to proceed with surgical intervention. Patient denies headaches, sweats, fevers, chills, double vision, blurred vision, cough, sore throat, dysphagia, chest pain, sob, wheezing, n/v/d/c, numbness, tingling, fatigue, urinary symptoms, mood disorders. ROS positive for left shoulder pain and stiffness. Admission Exam Per Admitting Provider Constitutional: well developed and well nourished; no acute distress Eyes: PERRL, conjunctivae normal, anicteric sclerae ENMT: external ear and nose normal, oropharynx normal Neck: trachea midline, no thyromegaly Respiratory: normal respiratory effort, lungs clear to auscultation Cardiovascular: RRR, no murmur, no edema Musculoskeletal: Left shoulder: Tenderness anterior glenoid. Active painful ROM. FF to 120 degrees, abduction to 70 degrees, ER to 30 degrees. Normal strength. Positive impingement signs. Skin: no rashes, warm and dry Neurologic: patellar DTR's 2+ bilat, sensation intact Psychiatric: A+Ox3, euthymic affect Principal Diagnosis Left shoulder osteoarthritis Discharge Exam Left shoulder: Dressing is clean, dry, intact. Hemovac in place. 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 Some numbness still in his fingers residual from nerve block. Otherwise distally neurovascular status and sensation grossly intact Constitutional well developed and well nourished; no acute distress Discharge Data Allergies Allergy/AdvReac Type Severity Reaction Status Date / Time gabapentin Allergy Intermediate Rash Verified 09/07/22 09:48 tramadol Allergy Intermediate Rash and Verified 09/07/22 09:48 itchiness hydrocodone Allergy Mild itchy Verified 09/07/22 09:48 oxycodone Allergy Mild itchy Verified 09/07/22 09:48 carbamazepine Allergy Unknown Unknown Verified 09/07/22 09:48 ciprofloxacin Allergy Unknown Unknown Verified 09/07/22 09:48 Consultations 09/02/22 14:35 Consult Hospitalist Routine Procedures Performed Operation Date: 09/07/22 12:00 Actual Procedures p Left total shoulder arthroplasty, distal clavicle excision, biceps tenodesis.(Left) - Pawan Sloan MD Ordered Studies 09/07/22 05:00 US - OR guided needle placemen Routine Hospital Course (1) Primary osteoarthritis, left shoulder: Postop day #1 left total shoulder arthroplasty, open distal clavicle excision -PT/OT: No active motion of the shoulder. -Pain management as written. Patient has several allergies. Will discharge home with p.o. Dilaudid if needed. He will call if any issues. -A.m. labs-mildly elevated creatinine from baseline. Was ordered fluid bolus. Leukocytosis asymptomatic. Likely due to surgical stress versus perioperative steroids. Mild drop in hemoglobin from 14.2 preop to 13.6 postop. -DVT prophylaxis: Patient on warfarin at home. Received 15 mg yesterday and plan on 10 mg today and then resume his 7.5 mg dosing. -Discharge planning: Plan on discharge home when stable. Likely plan to discharge home today as long as pain remains controlled and remained stable. Lab Results 09/07/22 09/07/22 09/08/22 Range/Units 09:32 Unknown 07:30 WBC 16.66 H (4.8-10.8) K/ul RBC 4.26 L (4.70-6.10) M/uL Hgb 13.6 L (14.0-18.0) g/dl Hct 40.9 L (42.0-52.0) % MCV 96.0 (80.0-100.0) fL MCH 31.9 (25.0-34.0) pg MCHC 33.3 (32.0-36.0) g/dL RDW Std Deviation 48.7 H (36.4-46.3) fL RDW Coeff of Lisbeth 13.8 (11.5-14.5) % Plt Count 170 (130-400) K/uL MPV 10.0 (9.4-12.4) fL Immature Gran % (Auto) 0.5 % Neut % (Auto) 82.9 % Lymph % (Auto) 10.3 % Carolina % (Auto) 6.2 % Eos % (Auto) 0.0 % Baso % (Auto) 0.1 % Neut # (Auto) 13.81 H (1.40-6.50) K/uL Lymph # (Auto) 1.72 (1.2-3.4) K/uL Carolina # (Auto) 1.03 H (0.11-0.59) K/uL Eos # (Auto) 0.00 (0-0.50) K/uL Baso # (Auto) 0.01 (0-0.2) K/uL Immature Gran # (Auto) 0.09 (0.01-0.20) K/uL PT 11.2 (9.0-12.0) Seconds INR 1.1 (0.9-1.1) APTT 27.8 (21.0-31.0) Seconds PTT Ratio 1.0 Sodium (136-145) mmol/L Potassium (3.5-5.1) mmol/L Chloride (98-107) mmol/L Carbon Dioxide (21-32) mmol/L Anion Gap (3-11) BUN (6-23) mg/dl Creatinine (0.6-1.4) mg/dl Est Cr Clr Drug Dosing ml/min Est GFR ( Amer) ml/min Est GFR (Non-Af Amer) ml/min BUN/Creatinine Ratio (10-20) Glucose (70-99(Fasting)) mg/dl Calcium (8.6-10.3) mg/dl SARS-CoV-2, RNA, NAAT NEGATIVE (NEGATIVE) 09/08/22 Range/Units 07:30 WBC (4.8-10.8) K/ul RBC (4.70-6.10) M/uL Hgb (14.0-18.0) g/dl Hct (42.0-52.0) % MCV (80.0-100.0) fL MCH (25.0-34.0) pg MCHC (32.0-36.0) g/dL RDW Std Deviation (36.4-46.3) fL RDW Coeff of Lisbeth (11.5-14.5) % Plt Count (130-400) K/uL MPV (9.4-12.4) fL Immature Gran % (Auto) % Neut % (Auto) % Lymph % (Auto) % Carolina % (Auto) % Eos % (Auto) % Baso % (Auto) % Neut # (Auto) (1.40-6.50) K/uL Lymph # (Auto) (1.2-3.4) K/uL Carolina # (Auto) (0.11-0.59) K/uL Eos # (Auto) (0-0.50) K/uL Baso # (Auto) (0-0.2) K/uL Immature Gran # (Auto) (0.01-0.20) K/uL PT (9.0-12.0) Seconds INR (0.9-1.1) APTT (21.0-31.0) Seconds PTT Ratio Sodium 136 (136-145) mmol/L Potassium 4.9 (3.5-5.1) mmol/L Chloride 103 (98-107) mmol/L Carbon Dioxide 25 (21-32) mmol/L Anion Gap 8 (3-11) BUN 34 H (6-23) mg/dl Creatinine 1.50 H (0.6-1.4) mg/dl Est Cr Clr Drug Dosing 51.9 ml/min Est GFR ( Amer) 51.3 ml/min Est GFR (Non-Af Amer) 44.3 ml/min BUN/Creatinine Ratio 22.7 H (10-20) Glucose 129 H (70-99(Fasting)) mg/dl Calcium 8.4 L (8.6-10.3) mg/dl SARS-CoV-2, RNA, NAAT (NEGATIVE) Total Time Total Time Spent Total Time Spent (In Minutes): 20 Discharge Plan Discharge Items Patient Disposition: Home - Self-Care Reason For Visit: POSTOP Discharge Diagnosis: Left shoulder osteoarthritis Activity: Per Instructions section Non-emergency contact: Surgeon Call non-emergency contact if: you have any medication questions, your pain is not controlled, your pain is concerning for you, you have a fever, your temperature is above 101, your wound has increased redness and your wound has increased drainage Follow-up/Referrals: Stef Encarnacion MD [Primary Care Provider] - 09/21/22 9:00 am (APPT WITH JAMARI NESS) Diet: Regular Addtl Attending Provider Instructions: ACTIVITY RECOMMENDATIONS: SELF CARE INSTRUCTIONS AFTER TOTAL SHOULDER ARTHROPLASTY A. You may do daily exercises as taught in physical therapy while in hospital. No lifting with the operative arm. Please schedule your outpatient physical therapy appointment to begin within 2-3 days after leaving the hospital. Specific restrictions will be written on your physical therapy prescription that is provided to you. B. You are to wear your sling/immobilizer at all times EXCEPT when performing your daily exercises, participating in physical therapy and for hygiene purposes. C. You may perform dry, daily dressing changes. Please keep your incision covered. You may shower 48 hours after surgery. Do not apply soap or any ointment/lotions directly over incision. Do not soak incision in bath tub/swimming pool. D. You may use ice as needed to operative shoulder. SPECIAL CARE INSTRUCTIONS: MEDICATION INSTRUCTIONS: *Coumadin dosing as instructed by coag clinic. VERY IMPORTANT TO READ AND REVIEW A. There are a few signs you need to watch for after you are home. Call [facility] at [phone] if you experience any of the followin. Increased severe shoulder pain. Some pain is expected especially when you exercise. 2. Increased swelling in you shoulder or arm; pain or swelling in either upper extremity. 3. Any fluid drainage from the incision. 4. Shortness of breath or chest pain. B. Please call [facility] at [phone] if you have any questions or concerns about your operation or recovery. C. Call your physician if: 1. Temperature is greater than 101 degrees (F). 2. Pain is not relieved by prescribed pain medications. 3. Increase drainage or redness from incision. 4. Unanswered questions or concerns. FOLLOW UP VISIT: Please call [facility] at [phone] to schedule a follow up appointment with Dr. Sloan or his PA in 12-14 days from your surgery date. Pending Studies at Discharge: No Stand-Alone Forms: My [facility] [employer], Smoking Cessation Medications and DC Order Prescriptions: New acetaminophen [Tylenol Extra Strength] 500 mg Tablet 1,000 mg PO Q8 Qty: 60 0RF hydromorphone 2 mg tablet 2 mg PO Q6H PRN (Reason: pain) Qty: 20 0RF Rx Instructions: Ongoing therapy, Dr. Sloan supervising Continued Centrum Silver Men 300-600-300 mcg tablet 1 tab PO 3XWK lisinopril-hydrochlorothiazide 10-12.5 mg Tablet 1 tab PO QAM Qty: 0 pravastatin 20 mg Tablet 20 mg PO HS Qty: 0 Systane (propylene glycol) 0.4-0.3 % Drops 1 drp ophthalmic (eye) QID PRN (Reason: Dry Eye(S)) Qty: 0 furosemide [Lasix] 40 mg Tablet 40 mg PO DAILY PRN (Reason: Edema) Qty: 0 allopurinol 100 mg tablet 100 mg PO BID 90 Days Qty: 180 1RF warfarin 5 mg tablet See Rx Instructions PO UD Qty: 120 1RF Rx Instructions: 5mg M/F, 7.5mg x 5 days per [facility] PO use as directed; pregabalin [Lyrica] 150 mg capsule 300 mg PO BID Qty: 360 3RF potassium citrate 10 mEq (1,080 mg) tablet extended release 10 meq PO BID Metamucil 3.4 gram/5.4 gram Powder 1 tbsp PO QAM Rx Instructions: mix into at least 8 oz of water or juice before administering Discharge Orders: Discharge Order (Routine); Ordered 09/08/22 Ordered By: Candido Dong Admission Data Admit Date/Time: 09/07/22 15:45 Attending Provider: Pawan Sloan Admit Provider: Pawan Sloan Primary Care Provider: Stef Encarnacion Other Providers: Danny Gaviria ; Afua Hampton Other Interventions: Discharge Summary Assessment (RN) Last Done: 09/08/22 09:25
[2022-09-09] MEDS ORDERED: WARFARIN SOD 5 MG TAB PO SCH (15:45)
== END 2022-09-08 13:16 | disposition home or self-care (01) ==
LOC: 3E 09:14 → ASU 09:14

== ENCOUNTER 2024-01-03 17:27 | Inpatient (IN) ==
--- NOTE | 2024-01-03 18:04 | Emergency Department Note ---
Impression & Plan Pulmonary embolism, ALVAREZ (dyspnea on exertion), Leg swelling, Bilateral cellulitis of lower leg ED Provider Note NAME: LIZA HADDAD AGE: 78 SEX: M : 1945 ARRIVES VIA: Walk-In INFORMANT: Patient, Triage note, ED PROVIDER(S): Juan José Turner MD CHIEF COMPLAINT: Outpatient referral, possible new PE MEDICAL DECISION MAKING: Patient presented due to concern for possible new PE. IV was established. I did review the patient's blood work from earlier today as well as the patient's imaging findings. The patient does have evidence of increasing lower extremity edema but no evidence of volume overload on the patient's CAT scan of the chest noted today per the report. Patient was ordered IV Lasix and IV Rocephin due to concern for his lower extremity cellulitis. Call was placed to the inpatient service and I did reach out to Dr. Corado with anticoagulation clinic as the patient reportedly has had therapeutic INRs. PT/INR and PTT added. I did speak with Dr. Corado who recommended Lovenox 1 mg/kg twice daily. She did suggest holding the patient's Coumadin currently and they will discuss a different range and also suggested a D-dimer. Patient did have blood work completed which showed a white count that was normal with a hemoglobin of 13.4. Platelet count is unremarkable. Kidney function unremarkable. BSG 101. LFTs unremarkable. Initial troponin negative. D-dimer 740. INR 2.4. Patient was admitted to the medicine service. Critical Care: I have personally spent 35 minutes of critical care time in direct management of this patient. This includes bedside care, interpretation of diagnostic studies, and testing, discussion with consultants, patient, and family members, and other require inpatient management activities. This 35 minutes is in excess of all separately billable procedures. Discussion w/ other healthcare providers: Rosalio Morales PA-C and Dr. Laurent inpatient medicine service Dr. Corado anticoagulation specialist Prior /Outside records reviewed: I reviewed the patient's outpatient imaging results which showed the chest CTA there is an occluded subsegmental branch within the posterior basal right lower lobe pulmonary artery which is new compared to the prior study comparison is from November 06. Could represent an acute PE. Patient also may have a chronic pulm onary infarct. No evidence of pneumonia. Stable pleural-based nodule. Chronic nonocclusive thrombi are noted. CT of the abdomen pelvis shows unchanged iliac lymphadenopathy no acute intra-abdominal or pelvic abnormality. Differential diagnosis: Reactive airway disease, pneumonia, pneumothorax, COPD, CHF, ACS, pulmonary embolism, musculoskeletal, GERD as well as other pathologies were considered. Diagnostics, as interpreted by me: ECG: Normal sinus rhythm, rate of 86, normal intervals, left axis deviation no ST elevations. Cardiac monitoring: An order was placed for continuous cardiac monitoring. The monitor shows a rate of 87 with sinus rhythm. Patient was placed on pulse oximetry Medical decision rules: None Imaging studies: Imaging as noted from earlier today HPI: Patient presents as an outpatient referral due to concern for abnormal CAT scan of the chest and was told that he may have a new blood clot. The patient does admit that he is been more short of breath with associated exertional dyspnea primarily in the last week. He did note that he had some abdominal pain today. The patient has been on Coumadin for known history of PEs. Patient denies any chest pains. Patient states that at rest that he does feel relatively well. The patient reports not taking a diuretic in some time. Patient has always had a little bit of redness and some swelling to the legs but they have gotten progressively worse especially last several days. Patient denies any falls or trauma. Patient states that his abdominal pain is in the mid abdomen. It is nonradiating. PAST MEDICAL HISTORY: See Below PAST SURGICAL HISTORY: See Below SOCIAL HISTORY: See Below HOME MEDICATIONS: See Below ALLERGIES: See Below VITALS: See Below PHYSICAL EXAMINATION: GENERAL: NAD, non-toxic. Wearing a mask. EYE EXAM: Normal conjunctiva. PERRL, no anisocoria and EOM's grossly intact w/o pain. OROPHARYNX: Moist mucus membranes, grossly normal dentition. NECK: Trachea midline, no stridor. Supple, no nuchal rigidity, no adenopathy, non-tender. No signs of meningismus. FROM of the neck with good chin to chest and neck extension. Chest: Port noted to the right chest. LUNGS: Clear to auscultation. Normal chest wall mechanics. HEART: NSR, no MRG. ABDOMEN: Abdomen soft, non-tender, no masses, no rebound or guarding. BACK: No CVA TTP. SKIN: No rashes and no bruising. UPPER EXTREMITIES: Upper extremities are grossly normal. LOWER EXTREMITIES: Grossly normal, bilateral lower extremity edema without calf pain but with erythema, compartments are soft, redness is blanching and no evidence of crepitus or abscess. NEURO EXAM: A&O x3, cranial nerves II-XII grossly intact, normal speech, moves all 4 extremities. Past Med/Surg History Problem List (Updated 01/03/24 @ 20:36 by Juan José Turner MD) Bilateral cellulitis of lower leg (Acute) Leg swelling (Acute) ALVAREZ (dyspnea on exertion) (Acute) Pulmonary embolism (Acute) Cellulitis Incontinence Port-A-Cath in place (01/24/23) Infusaport Insertion to right internal jugular with Fluoroscopy(Right) - Vamsi Tolbert, Allergic reaction (Acute) Pulmonary embolism Trigeminal neuralgia (Acute) Trigeminal neuralgia (Acute) Vitamin D deficiency (Acute) Hypertension (Acute) Chronic kidney disease, stage 3 (Acute) Vitamin D deficiency (Chronic) Prostate cancer screening Thoracic ascending aortic aneurysm COVID-19 (Acute) Gastritis Insomnia Encounter for pre-operative examination Primary osteoarthritis, left shoulder Low back pain with sciatica (Acute) History of pulmonary embolism 2015, unknown etiology 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 This is similar to the prior studies." Follows with Dr. Marshall Hypercholesterolemia (Acute) Stone in kidney Hx Hypertension (Chronic) Chronic kidney disease, stage III (moderate) (Chronic) Trigeminal neuralgia (Acute) s/p radiated nerve, No issues x several years Medical History Osteoarthritis Surgical History History of left shoulder replacement History of right shoulder replacement History of total left knee replacement (TKR) History of total right knee replacement (TKR) with revision History of colonoscopy History of inguinal hernia repair History of cancer surgery Left side of neck resection + lymph node removal History of tooth extraction History of tonsillectomy and adenoidectomy History of sinus surgery History of cystoscopy History of cataract surgery bilateral History of back surgery L4-L5 with screws Family History Family/Other Diabetes Heart disease Nephrolithiasis Other No family history of adverse response to anesthesia Social History Smoking Status: Never smoker Second Hand Exposure: No; Do You Dip or Chew Tobacco: No; Hx Alcohol Use: No Hx Substance Use: No Preferred Language: Belarusian Communication Ability: Effective Relief Salesperson Required: No Beliefs That Will Affect Care: None Current Living Situation: Spouse current occupational status: retired Feels Safe at Home: Yes Seatbelt Use: always Assistive Devices: Brace/Splint/Immobilizer and Cane Allergies Allergies Allergy/AdvReac Type Severity Reaction Status Date / Time gabapentin Allergy Intermediate Rash Verified 01/03/24 19:37 tramadol Allergy Intermediate Rash and Verified 01/03/24 19:37 itchiness hydrocodone Allergy Mild itchy Verified 01/03/24 19:37 oxycodone Allergy Mild itchy Verified 01/03/24 19:37 carbamazepine Allergy Unknown Unknown Verified 01/03/24 19:37 ciprofloxacin Allergy Unknown Unknown Verified 01/03/24 19:37 Home Meds Home Medications Medication Instructions Recorded Confirmed lisinopril 10 1 tab PO QAM #0 tabs 08/31/12 01/03/24 mg-hydrochlorothiazide 12.5 mg tablet pravastatin 20 mg tablet 20 mg PO HS ##0 02/28/16 01/03/24 furosemide 40 mg tablet (Lasix) 40 mg PO DAILY PRN Edema #0 tabs 09/08/16 01/03/24 acetaminophen 500 mg tablet 1,000 mg PO Q8 PRN Pain 10/28/22 01/03/24 (Tylenol Extra Strength) polyethylene glycol 3350 17 17 g PO DAILY PRN Constipation 01/06/23 01/03/24 gram/dose oral powder (Miralax) [id number] 300 mcg-K 60 1 tab PO 2XWK 06/02/23 01/03/24 mcg-lycop 600 mcg-lutein 300 mcg tablet (Centrum Silver Men) fluorometholone 0.1 % eye 1 drp OPB DAILY 01/03/24 01/03/24 drops,suspension potassium citrate 10 mEq (1,080 10 meq PO BID 01/03/24 01/03/24 mg) tablet,extended release Previous Rx's Medication Instructions Recorded allopurinol 100 mg tablet 100 mg PO BID 90 days #180 tabs 12/22/21 warfarin 5 mg tablet See Rx Instructions PO UD #120 tabs 08/07/23 pregabalin 150 mg capsule (Lyrica) 300 mg (2 x 150 mg) PO BID #360 08/16/23 caps Results & Data (ED) Vital Signs Vital Signs - 24 hr 01/03/24 17:36 01/03/24 18:10 01/03/24 19:23 Temperature 36.4 C L Temperature Source Temporal Artery Scan Pulse Rate 87 82 Respiratory Rate 18 Respiratory Effort / Characteristics Non-Labored Respiratory Depth Normal Respiratory Pattern Regular Blood Pressure 125/76 Blood Pressure Mean 92 Pulse Oximetry 91 98 Oxygen Delivery Method Room Air Room Air Sepsis Recent Fever Within 48 Hours No Sepsis New/Unexplained Change in Mental Status N/A Sepsis Action Taken by Nursing No Action Required Home Medications Current Medication List: was personally reviewed by me Laboratory Data Attestation: I reviewed the patient's lab results. Lab Results 01/03/24 Range/Units 18:05 ESR 30 H (0-20) mm/hr PT 24.1 H (9.0-12.0) Seconds INR 2.4 H (0.9-1.1) APTT 57 H (21-31) Seconds PTT Ratio 2.1 D-Dimer 740 H* (0-500) ug/L FEU Magnesium 1.5 L (1.7-2.4) mg/dl Troponin I High Sens 5.2 (0-20) pg/ml Administered Medications Enoxaparin Sodium (Enoxaparin Inj 120 Mg/0.8 Ml Syr) 120 mg SQ Q12H [facility] Stop: 02/02/24 20:59 Last Admin: 01/03/24 20:29 Dose: 120 mg Documented By: LAUREL Discontinued Medications Furosemide (Furosemide 40 Mg/4 Ml Vial) 40 mg IV ONE ONE Stop: 01/03/24 18:15 Last Admin: 01/03/24 18:44 Dose: 40 mg Documented By: MAC Ceftriaxone Sodium (Rocephin) 2,000 mg in 50 mls @ 100 mls/hr IV NOW STA Stop: 01/03/24 18:43 Last Infusion: 01/03/24 19:23 Dose: Infused Documented By: Admin: 01/03/24 18:44 Dose: 100 mls/hr Documented By: KMO Discharge Plan Visit Data Chief Complaint: Referred by Doctor Stated Complaint: POSSIBLE BLOOD CLOT, REFERRED BY DOCTOR ED Provider: Juan José Turner Discharge Problem: Pulmonary embolism, ALVAREZ (dyspnea on exertion), Leg swelling, Bilateral cellulitis of lower leg Forms Stand Alone Forms: My [facility] [employer] Prescriptions Prescriptions: No Action Centrum Silver Men [id number] mcg tablet 1 tab PO 2XWK acetaminophen [Tylenol Extra Strength] 500 mg tablet 1,000 mg PO Q8 PRN (Reason: Pain) warfarin 5 mg tablet See Rx Instructions PO UD Qty: 120 1RF Rx Instructions: 5mg Monday, Monday and Monday, 7.5mg x [address] [facility] PO use as directed; lisinopril-hydrochlorothiazide 10-12.5 mg Tablet 1 tab PO QAM Qty: 0 pravastatin 20 mg Tablet 20 mg PO HS Qty: 0 furosemide [Lasix] 40 mg Tablet 40 mg PO DAILY PRN (Reason: Edema) Qty: 0 allopurinol 100 mg tablet 100 mg PO BID 90 Days Qty: 180 1RF pregabalin [Lyrica] 150 mg capsule 300 mg PO BID Qty: 360 1RF polyethylene glycol 3350 [Miralax] 17 gram/dose powder 17 g PO DAILY PRN (Reason: Constipation) fluorometholone 0.1 % drops,suspension 1 drp OPB DAILY potassium citrate 10 mEq (1,080 mg) tablet extended release 10 meq PO BID Rx Instructions: TAKE 1 TABLET BY MOUTH TWICE DAILY Referrals Referrals: Stef Encarnacion MD [Primary Care Provider] - Discharge Problem: Pulmonary embolism Qualifiers: Pulmonary embolism type: unspecified Chronicity: acute Acute cor pulmonale presence: unspecified Qualified Code(s): I26.99 - Other pulmonary embolism without acute cor pulmonale
--- NOTE | 2024-01-03 18:42 | History & Physical Report ---
Date of Service January 03, 2024 Assessment & Plan (1) Pulmonary embolism: Plan: Worsening ALVAREZ that began on 01/01 Sent in by PCP for chest CTA on 01/02 which revealed chronic nonocclusive emboli, as well as occluded subsegmental branch within the posterior RLL, which could represent an acute pulmonary embolism Patient is currently on warfarin for history of a PE; follows with [facility]; PT/INR was 2.6 ED spoke with anticoagulation clinic Unclear if this is new pulmonary versus chronic Will place patient on Lovenox 1mg/kg twice daily D-dimer ordered, pending Continuous pulse oximetry A.m. 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 He presented at the behest of his PCP on 01/02 after having a chest CT performed outpatient with concern for new PE. Patient is currently on warfarin for history of a pulmonary embolism. He reports new dyspnea on exertion that started yesterday. He is unsure when this started yesterday. He denies SOB at rest. He is unable to lay flat on his back due to lower back pain. No supplemental oxygen at home or CPAP at night. Patient reports that his legs began to swell and become erythematous on Sunday 12/31. No prior history of cellulitis. Patient is unsure if he had erythema and swelling in his legs prior to his last pulmonary embolism. He is unsure when his last pulmonary embolism was. He he denies family history of PE, bleeding disorders. No history of GI bleeds. Patient did not take any of his regular morning medications today; he replies good compliance with taking his Coumadin which she takes at nighttime. He follows with Dr. Corado at the anticoagulation clinic outpatient; last seen on 12/31 with a PT/INR at 2.6. ED Course: Ceftriaxone 2000mg IV Lasix 40mg IV ROS: Patient endorses cold intolerance, ALVAREZ, lightheadedness, dizziness, feeling off balance, headache, abdominal tenderness/bloating, loose bowel, and new onset of redness and swelling in the lower legs bilaterally. Patient denies fever, chills, night sweats, cough, chest pain, SOB at rest, pleuritic CP, hemoptysis, N/V/D, melena, blood in urine or stool, or numbness/tingling in the arms or legs. Allergies Allergy/AdvReac Type Severity Reaction Status Date / Time gabapentin Allergy Intermediate Rash Verified 01/03/24 19:37 tramadol Allergy Intermediate Rash and Verified 01/03/24 19:37 itchiness hydrocodone Allergy Mild itchy Verified 01/03/24 19:37 oxycodone Allergy Mild itchy Verified 01/03/24 19:37 carbamazepine Allergy Unknown Unknown Verified 01/03/24 19:37 ciprofloxacin Allergy Unknown Unknown Verified 01/03/24 19:37 Home Medications Medication Instructions Recorded Confirmed Type lisinopril 10 1 tab PO QAM #0 tabs 08/31/12 01/03/24 History mg-hydrochlorothiazide 12.5 mg tablet pravastatin 20 mg tablet 20 mg PO HS ##0 02/28/16 01/03/24 History furosemide 40 mg tablet (Lasix) 40 mg PO DAILY PRN Edema #0 tabs 09/08/16 01/03/24 History allopurinol 100 mg tablet 100 mg PO BID 90 days #180 tabs 12/22/21 01/03/24 Rx acetaminophen 500 mg tablet 1,000 mg PO Q8 PRN Pain 10/28/22 01/03/24 History (Tylenol Extra Strength) polyethylene glycol 3350 17 17 g PO DAILY PRN Constipation 01/06/23 01/03/24 History gram/dose oral powder (Miralax) [id number] 300 mcg-K 60 1 tab PO 2XWK 06/02/23 01/03/24 History mcg-lycop 600 mcg-lutein 300 mcg tablet (Centrum Silver Men) warfarin 5 mg tablet See Rx Instructions PO UD #120 tabs 08/07/23 01/03/24 Rx pregabalin 150 mg capsule (Lyrica) 300 mg (2 x 150 mg) PO BID #360 08/16/23 01/03/24 Rx caps fluorometholone 0.1 % eye 1 drp OPB DAILY 01/03/24 01/03/24 History drops,suspension potassium citrate 10 mEq (1,080 10 meq PO BID 01/03/24 01/03/24 History mg) tablet,extended release enoxaparin 120 mg/0.8 mL 120 mg (0.8 mL) subcut Q12H 30 01/04/24 Rx subcutaneous syringe (Lovenox) days #48 mL Past Med/Surg History Problem List (Updated 01/05/24 @ 09:16 by Mynor Roland DO) Prostate nodule ELISABETH (acute kidney injury) Hypomagnesemia Bilateral cellulitis of lower leg (Acute) Leg swelling (Acute) ALVAREZ (dyspnea on exertion) (Acute) Pulmonary embolism (Acute) Cellulitis Incontinence Port-A-Cath in place (01/24/23) Infusaport Insertion to right internal jugular with Fluoroscopy(Right) - Vamsi Tolbert DO Allergic reaction (Acute) Pulmonary embolism Trigeminal neuralgia (Acute) Trigeminal neuralgia (Acute) Vitamin D deficiency (Acute) Hypertension (Acute) Chronic kidney disease, stage 3 (Acute) Vitamin D deficiency (Chronic) Prostate cancer screening Thoracic ascending aortic aneurysm COVID-19 (Acute) Gastritis Insomnia Encounter for pre-operative examination Primary osteoarthritis, left shoulder Low back pain with sciatica (Acute) History of pulmonary embolism 2015, unknown etiology 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 This is similar to the prior studies." Follows with Dr. Marshall Hypercholesterolemia (Acute) Stone in kidney Hx Hypertension (Chronic) Chronic kidney disease, stage III (moderate) (Chronic) Trigeminal neuralgia (Acute) s/p radiated nerve, No issues x several years Medical History Osteoarthritis Surgical History History of left shoulder replacement History of right shoulder replacement History of total left knee replacement (TKR) History of total right knee replacement (TKR) with revision History of colonoscopy History of inguinal hernia repair History of cancer surgery Left side of neck resection + lymph node removal History of tooth extraction History of tonsillectomy and adenoidectomy History of sinus surgery History of cystoscopy History of cataract surgery bilateral History of back surgery L4-L5 with screws Family History Family/Other Diabetes Heart disease Nephrolithiasis Other No family history of adverse response to anesthesia Social History Smoking Status: Never smoker Second Hand Exposure: No; Do You Dip or Chew Tobacco: No; Hx Alcohol Use: No Hx Substance Use: No Preferred Language: Honduran Communication Ability: Effective Financial Foundations Representative Required: No Beliefs That Will Affect Care: None Current Living Situation: Spouse current occupational status: retired Feels Safe at Home: Yes Seatbelt Use: always Assistive Devices: Brace/Splint/Immobilizer and Cane Review of Systems 2 Review of Systems: See HPI above Physical Exam 2 Physical Exam: General: no acute distress; non-toxic appearing; well-nourished; cooperative; SpO2 91% on RA HEENT: normocephalic, atraumatic; no scleral icterus; PERRLA w/ EOMs intact; vision and hearing grossly intact Neck: supple; no lymphadenopathy; trachea midline Skin: warm, dry without signs of tenting; no cyanosis; no rashes, bruising, lesions, or erythema noted CV: chest wall NTP; RRR; S1/S2 normal; no murmurs/rubs/gallops; pulses intact and symmetric at radial, DP, and PT Lungs: no acute respiratory distress; symmetrical chest wall expansion; clear breath sounds across all lung kan w/o adventitious sounds; no wheezing ABD: Soft, NTP; BS present; no rebound/guarding; moderate distention secondary to body habitus MSK: no tics or fasciculations; lower extremities are swollen and erythematous bilaterally (see photos below); mainly on the dorsal surface; noncircumferential; papules on the posterior left leg; warm to touch b/l Neuro: A&Ox3; normal mood and affect; fluent speech; no focal deficits; sensation grossly intact and symmetric in the LEs b/l Results & Data Results & Data Vital Signs (Past 12 Hours) Vital Signs Temp Pulse Resp BP Pulse Ox O2 Del Method 01/03/24 18:10 82 01/03/24 17:36 36.4 C L 87 18 125/76 91 Room Air Laboratory Results Abnormal lab results 01/03/24 Range/Units 18:05 PT 24.1 H (9.0-12.0) Seconds INR 2.4 H (0.9-1.1) APTT 57 H (21-31) Seconds Code Status & VTE Plan Code Status Conditional code (discussed risks/benefits and caveats of performing CPR/defibrillation without artificial ventilation; patient is very clear that he would not want any artificial ventilation or airways, but would want CPR defibrillation) VTE Prophylaxis Plan VTE Prophylaxis will be ordered: Yes Supervising Physician Co-Signing Physician Notes Patient seen and examined, chart reviewed, case discussed with Rosalio Morales PA-C and I agree with the assessment and plan as above except as otherwise noted Labs and images reviewed CTA: Chronic nonocclusive and partially calcified emboli in the right lower lobe segmental pulmonary arteries. Subsegmental branch new compared to prior? Acute PE. Stable 2 cm right pleural nodule. Focal irregular density in the right lower lobe? Scarring/resulting from chronic pulmonary infarct. No consolidations to suggest pneumonia. CTA/P without acute findings History of prior PE on warfarin, anticancer regimen, CKD 3, trigeminal neuralgia, hypertension, hypercholesterolemia. Presented to PCP and was referred to the ER after outpatient chest CT showed concern for acute PE. Has had ALVAREZ x 1 day. He is on Coumadin with which he has been compliant. Reports he has been therapeutic at his knowledge without episodes of warfarin being held or subtherapeutic INR recently. Case was reviewed with coag clinic. Switched to Lovenox 1 mg/kg twice daily. Agree with management as above. Additionally has bilateral lower extremity swelling and erythema. Does not have a leukocytosis. ESR is elevated, CRP is pending. Legs are warm with increased erythema bilaterally, but no leukocytosis is present. Some right-sided asymmetry but findings are bilateral lowing likelihood of cellulitis. Will defer additional antibiotics. Dopplers are pending. ? malignant recurrence due to development of PEs while on therapeutic INR. No evidence of recurrent malignancy on CTA.Agree with above. 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
[2024-01-03] MEDS: cefTRIAXone SODIUM 2,000 MG/50 ML BAG IV STA (18:44)
[2024-01-03] MEDS: FUROSEMIDE 40 MG/4 ML VIAL IV ONE (18:44)
[2024-01-03 19:21] LABS: Troponin I High Sensitivity 5.2 pg/ml (0-20)
[2024-01-03 19:25] LABS: INR 2.4 (0.9-1.1); Partial Thromboplastin Ratio 2.1; Partial Thromboplastin Time 57 Seconds (21-31); Prothrombin Time 24.1 Seconds (9.0-12.0)
[2024-01-03 19:41] LABS: D Dimer 740 ug/L FEU (0-500)
[2024-01-03 19:59] LABS: Magnesium 1.5 mg/dl (1.7-2.4)
[2024-01-03] MEDS: ENOXAPARIN INJ 120 MG/0.8 ML SYR SQ SCH (20:29)
[2024-01-03] MEDS: MAGNESIUM SULFATE / D5W 1 GM/100 ML BAG IV ONE (21:24)
[2024-01-03] MEDS ORDERED: ONDANSETRON INJ 2 MG/ML 2 ML VIAL IV PRN (21:57)
[2024-01-03] MEDS: ONDANSETRON INJ 2 MG/ML 2 ML VIAL ONE (22:06)
[2024-01-03] MEDS ORDERED: POLYETHYLENE (MIRALAX) 17 GM PACK PO PRN (22:11)
[2024-01-03] MEDS: ACETAMINOPHEN 500 MG TAB PO STA (22:20)
--- NOTE | 2024-01-03 23:11 | Ultrasound Report ---
Exam(s): US VENOUS BILATERAL LOWER EXTREMITIES EXAM: US Duplex Bilateral Lower Extremities Veins CLINICAL HISTORY: Reason for exam: DVT r/o. TECHNIQUE: Real-time duplex ultrasound scan of the bilateral lower extremity veins integrating B-mode two-dimensional vascular structure, Doppler spectral analysis, color flow Doppler imaging and compression. COMPARISON: No relevant prior studies available. FINDINGS: Right deep veins: No DVT in the right common femoral, femoral, proximal deep femoral or popliteal veins. The veins demonstrate normal color flow, are normally compressible, with normal phasic flow and/or augmentation response. Right superficial veins: No thrombus in the visualized right great saphenous vein. Left deep veins: No DVT in the left common femoral, femoral, proximal deep femoral or popliteal veins. The veins demonstrate normal color flow, are normally compressible, with normal phasic flow and/or augmentation response. Left superficial veins: No thrombus in the visualized left great saphenous vein. Soft tissues: 3.2 x 2.6 x 0.7 cm collection in the right medial calf and soft tissue edema. IMPRESSION: No DVT demonstrated. 3.2 x 2.6 x 0.7 cm collection in the right medial calf and soft tissue edema. Electronically signed by: Mirna Acuña M.D. 01/03/24 23:10 PM
[2024-01-03 23:26] LABS: C Reactive Protein 1.27 mg/dl (0-0.5)
[2024-01-04] MEDS: ENOXAPARIN 1 MG/KG SQ STA (01:48)
[2024-01-04 02:29] LABS: Basophils # (auto) 0.05 K/uL (0.00-0.20); Basophils % (auto) 0.7 %; Eosinophils # (auto) 0.36 K/uL (0.00-0.50); Eosinophils % (auto) 4.8 %; Hematocrit (blood only) 39.6 % (42.0-52.0); Hemoglobin 13.3 g/dl (14.0-18.0); Immature Granulocytes # (auto) 0.01 K/uL (0.01-0.20); Immature Granulocytes % (auto) 0.1 %; Lymphocytes # (auto) 2.19 K/uL (1.20-3.40); Lymphocytes % (auto) 29.4 %; Mean Corpuscular Hemoglobin 32.1 pg (25.0-34.0); Mean Corpuscular Hgb Conc 33.6 g/dL (32.0-36.0); Mean Corpuscular Volume 95.7 fL (80.0-100.0); Monocytes # (auto) 0.97 K/uL (0.11-0.59); Neutrophils # (auto) 3.88 K/uL (1.40-6.50); Platelet Count 157 K/uL (130-400); RDW Coefficient of Variation 14.2 % (11.5-14.5); RDW Standard Deviation 49.6 fL (36.4-46.3); Red Blood Count 4.14 M/uL (4.70-6.10); White Blood Count 7.46 K/ul (4.8-10.8)
[2024-01-04 02:42] LABS: BUN Creatinine Ratio 14.2 (10-20); C Reactive Protein 1.62 mg/dl (0-0.5); Calcium 8.7 mg/dl (8.6-10.3); Creatinine Clr Calc Pharmacy 51.6 ml/min; Est GFR (African American) 51.4 ml/min; Est GFR (Non-African American) 44.4 ml/min; Magnesium 1.6 mg/dl (1.7-2.4); Potassium 3.9 mmol/L (3.5-5.1)
[2024-01-04 03:01] LABS: INR 2.6 (0.9-1.1); Partial Thromboplastin Ratio 2.1; Partial Thromboplastin Time 57 Seconds (21-31); Prothrombin Time 25.8 Seconds (9.0-12.0)
[2024-01-04] MEDS: ACETAMINOPHEN 325 MG TAB PO PRN (05:16)
[2024-01-04] MEDS: LISINOPRIL/HCTZ 10/12.5MG TAB PO SCH (08:38)
[2024-01-04] MEDS: allopurinoL 100 MG TAB PO SCH (08:38)
[2024-01-04] MEDS: POTASSIUM CITRATE 10 MEQ TAB PO SCH (08:38)
[2024-01-04] MEDS: MAGNESIUM SULFATE / D5W 1 GM/100 ML BAG IV SCH (08:48)
[2024-01-04] MEDS: PREGABALIN 100 MG CAP PO SCH (10:06)
--- NOTE | 2024-01-04 13:56 | Hospitalist Progress Note ---
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, as well as occluded subsegmental branch within the posterior RLL, which could represent an acute PE This very small PE is an incidental finding and most likely did not have anything to do with his symptoms of fatigue and generalized weakness-I believe that is related to his acute cellulitis in the right leg Venous Doppler bilateral lower extremities negative for DVT Troponin negative x 3 He remains on supplemental oxygen but has normal pulse ox-asked nurse to wean him off oxygen Patient is currently on warfarin for over 10 years for history of a remote PE; he did also have weakly positive antiphospholipid antibodies in the past Follows with anticoagulation clinic and recent PT/INR have always been therapeutic ED physician spoke with anticoagulation clinic physician who recommends starting therapeutic Lovenox 120 Mg SQ every 12 hours as this could be considered a failure of Coumadin Given his history of malignant melanoma with positive sentinel lymph node and currently on Keytruda, concern for recurrent malignancy. He did have a CT soft tissue of the neck in 11/2023 that did not show recurrence. He also had a CTA of the chest and CT abdomen/pelvis yesterday which did not show findings consistent with metastatic disease, however he did have a right renal lesion and a prostatic lesion Will consult hematology/oncology given his history of malignancy for further evaluation-appreciate consult-recommends PET scan full body as an outpatient in the near future to rule out recurrence of malignant melanoma Checked PSA-3.4. Will need follow-up with urology for prostate lesion and right renal lesion-I message the urology provider that he follows with to relay this information Continue Lovenox Follow INR as was still in therapeutic range on 01/03 (2) Cellulitis: Plan: Bilateral lower extremity swelling, erythema right leg greater than left leg that began on Sunday 12/31. He had chills at home and fatigue, generalized weakness likely related to infection I suspect the infection is more so in the right leg and the left leg is just chronic venous stasis changes No leukocytosis or fevers here. CRP and ESR are very minimally elevated Continue ceftriaxone as erythema is improving Was given 1 dose of Lasix 40 Mg IV on admission which is helping with edema Recommend elevation of legs when possible Follow clinically Follow CBC, BMP (3) History of malignant melanoma: Plan: As noted above, on Keytruda Plan for PET scan within the next few weeks after discharge He was to have his final infusion of Keytruda in February to complete 1 year long treatment Appreciate oncology consultation (4) Hypomagnesemia: Plan: Replete with IV magnesium Follow level in the morning (5) Hypertension: Plan: Blood pressures are normal Continue home lisinopril/HCTZ, potassium chloride tablets which are also for history of kidney stones (6) Chronic kidney disease, stage III (moderate): Plan: Creatinine is 1.48 today up from baseline of 1.2-1.3. Likely secondary to receiving IV Lasix on admission Hold further IV Lasix at this time and recommend elevation of legs to reduce edema Continue home lisinopril HCTZ Follow BMP Avoid nephrotoxins (7) Trigeminal neuralgia: Plan: Continue Lyrica Plan Morbid obesity with BMI 41.2-needs weight loss Disposition: Continued stay on medical unit with telemetry, but is improving and could likely be discharged to home with oral antibiotics on 01/04. I have prescribed the Lovenox to his pharmacy and the cost will be $50 per month. Will check a two-step walk test to see if needs home supplemental oxygen on discharge. Conditional code VTE PPx: Lovenox 1mg/kg BID Admission and Anticipated Discharge Date Admission Date: January 03, 2024 Subjective Patient reports he came to the hospital after approximately 1 week of feeling very fatigued and generally weak, with increased redness and swelling especially in the right leg. He had some chills at home but no definite fevers. He does not recall feeling particularly short of breath but is not sure. He was seen by his PCP and with the leg swelling and the possible shortness of breath and fatigue, and low blood pressures, he was sent for CT angiogram of the chest which revealed a small subsegmental acute PE and chronic PEs Since admission, he is feeling better, thinks the redness in his leg is definitely getting better. He had a couple of loose stools overnight but no abdominal pains. I discussed his care with oncology. I also discussed his care and findings on imaging with his at the bedside Physical Exam Constitutional: WD/WN, vitals as above + obese Neck: Scar from melanoma resection on left posterior neck, no lymphadenopathy of the neck Respiratory: normal respiratory effort, lungs clear to auscultation Cardiovascular: Rate/Rhythm: regular rate and regular rhythm Heart Sounds: no murmur Extremities: + edema (2+ pitting edema of the legs to the knees bilaterally) Gastrointestinal (Abdomen): normal bowel sounds, soft, nontender, no hepatosplenomegaly Skin: Erythema of the right anterior, medial, and lateral leg with several superficial blisters and wounds, receding from drawn purple line Very minimal erythema to pink-colored skin consistent with chronic venous stasis on the left leg Psychiatric: A+Ox3, euthymic affect Results & Data Results & Data Vital Signs (Past 12 Hours) Vital Signs Temp Pulse Pulse Pulse Resp BP Pulse Ox 01/04/24 13:14 36.4 C L 67 20 107/65 95 01/04/24 08:40 76 18 120/67 96 01/04/24 07:48 75 01/04/24 05:09 36.9 C 78 16 131/71 96 O2 Del Method O2 Flow Rate 01/04/24 13:14 Nasal Cannula 2 01/04/24 08:40 Nasal Cannula 2 01/04/24 07:48 01/04/24 05:09 Room Air 2 Laboratory Results CBC, BMP, INR, magnesium, CRP, troponin reviewed Diagnostic Findings Venous Doppler reviewed PG Care Time/CCT Total # of Minutes Spent Total Time Spent with Patient: Total time spent is greater than 50% in coordination of care (as documented) at patient's floor/unit and/or counseling patient: Coding Level of Care Code 70384 SUB INP/OBS CARE 3/50MIN Diagnoses Pulmonary embolism I26.99 Cellulitis L03.90 History of malignant melanoma Z85.820 Hypomagnesemia E83.42 Hypertension I10 Chronic kidney disease, stage III (moderate) N18.3 Trigeminal neuralgia G50.0
--- NOTE | 2024-01-04 15:15 | Oncology Consultation ---
Date of Consultation January 04, 2024 Assessment & Plan (1) History of malignant melanoma: (2) Pulmonary embolism: (3) Bilateral cellulitis of lower leg: Plan -Regarding possible acute on chronic PE, although INR was therapeutic in the ER, it is still unclear if this is due to subtherapeutic anticoagulation or not since labs obtained around showed subtherapeutic INR. Regardless, would have to assume that this is a failure of anticoagulation with Coumadin and agree with recommendations for Lovenox. -Based on CT CAP obtained during hospitalization, no evidence at this time to suggest progression of malignant melanoma. Will however recommend restaging with outpatient whole-body PET/CT to rule out recurrent disease as a potential cause of failure of anticoagulation. Also recommend updated MRI brain which can be obtained outpatient as well. CT abdomen and pelvis did reveal possible prostate/renal lesion for which he would benefit from follow-up with urology Thank you for this consult. Will follow peripherally while patient is in the hospital. Please feel free to call if you have any further questions. 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 Patient was referred to the ER by PCP after CTA chest obtained outpatient for dyspnea on exertion revealed chronic nonocclusive and partially calcified emboli within the right lower lobe segmental pulmonary arteries, occluded subsegmental branch within posterior B-cell right lower lobe pulmonary artery which is new and could represent acute pulmonary embolus, stable 2 cm right anterior pleural based nodule and focal irregular density within base of right lower lobe similar to prior study and favoring scarring. CT abdomen and pelvis on 01/03/2024 revealed no acute intra-abdominal or intrapelvic abnormality, unchanged iliac lymphadenopathy, possible 1.2 cm right renal lesion and prostatomegaly with possible prostate lesion. Labs obtained in the ER revealed therapeutic INR of 2.[address] Corado who recommended therapeutic Lovenox Which he is currently on Complains of chronic bilateral lower extremity swelling, endorses mild dyspnea on exertion. Denies significant weight loss. Endorses compliance with Coumadin and states that INR is usually within target range of 2-3. Allergies Allergy/AdvReac Type Severity Reaction Status Date / Time gabapentin Allergy Intermediate Rash Verified 01/03/24 19:37 tramadol Allergy Intermediate Rash and Verified 01/03/24 19:37 itchiness hydrocodone Allergy Mild itchy Verified 01/03/24 19:37 oxycodone Allergy Mild itchy Verified 01/03/24 19:37 carbamazepine Allergy Unknown Unknown Verified 01/03/24 19:37 ciprofloxacin Allergy Unknown Unknown Verified 01/03/24 19:37 Home Medications Medication Instructions Recorded Confirmed Type lisinopril 10 1 tab PO QAM #0 tabs 08/31/12 01/03/24 History mg-hydrochlorothiazide 12.5 mg tablet pravastatin 20 mg tablet 20 mg PO HS ##0 02/28/16 01/03/24 History furosemide 40 mg tablet (Lasix) 40 mg PO DAILY PRN Edema #0 tabs 09/08/16 01/03/24 History allopurinol 100 mg tablet 100 mg PO BID 90 days #180 tabs 12/22/21 01/03/24 Rx acetaminophen 500 mg tablet 1,000 mg PO Q8 PRN Pain 10/28/22 01/03/24 History (Tylenol Extra Strength) polyethylene glycol 3350 17 17 g PO DAILY PRN Constipation 01/06/23 01/03/24 History gram/dose oral powder (Miralax) [id number] 300 mcg-K 60 1 tab PO 2XWK 06/02/23 01/03/24 History mcg-lycop 600 mcg-lutein 300 mcg tablet (Centrum Silver Men) warfarin 5 mg tablet See Rx Instructions PO UD #120 tabs 08/07/23 01/03/24 Rx pregabalin 150 mg capsule (Lyrica) 300 mg (2 x 150 mg) PO BID #360 08/16/23 01/03/24 Rx caps fluorometholone 0.1 % eye 1 drp OPB DAILY 01/03/24 01/03/24 History drops,suspension potassium citrate 10 mEq (1,080 10 meq PO BID 01/03/24 01/03/24 History mg) tablet,extended release enoxaparin 120 mg/0.8 mL 120 mg (0.8 mL) subcut Q12H 30 01/04/24 Rx subcutaneous syringe (Lovenox) days #48 mL Patient History Medical History Osteoarthritis Surgical History History of left shoulder replacement History of right shoulder replacement History of total left knee replacement (TKR) History of total right knee replacement (TKR) with revision History of colonoscopy History of inguinal hernia repair History of cancer surgery Left side of neck resection + lymph node removal History of tooth extraction History of tonsillectomy and adenoidectomy History of sinus surgery History of cystoscopy History of cataract surgery bilateral History of back surgery L4-L5 with screws Family History Family/Other Diabetes Heart disease Nephrolithiasis Other No family history of adverse response to anesthesia Social History Smoking Status: Never smoker Second Hand Exposure: No; Do You Dip or Chew Tobacco: No; Hx Alcohol Use: No Hx Substance Use: No Preferred Language: Romanian Communication Ability: Effective Superintendent Drivers Required: No Beliefs That Will Affect Care: None Current Living Situation: Spouse current occupational status: retired Feels Safe at Home: Yes Seatbelt Use: always Assistive Devices: Brace/Splint/Immobilizer and Cane Results & Data Vital Signs (Past 12 Hours) Vital Signs Temp Pulse Pulse Pulse Resp BP Pulse Ox 01/04/24 13:14 36.4 C L 67 20 107/65 95 01/04/24 08:40 76 18 120/67 96 01/04/24 07:48 75 01/04/24 05:09 36.9 C 78 16 131/71 96 O2 Del Method O2 Flow Rate 01/04/24 13:14 Nasal Cannula 2 01/04/24 08:40 Nasal Cannula 2 01/04/24 07:48 01/04/24 05:09 Room Air 2
[2024-01-04] MEDS: cefTRIAXone SODIUM 2,000 MG/50 ML BAG IV SCH (18:23)
[2024-01-04] MEDS: PRAVASTATIN SOD 20 MG TAB PO SCH (21:21)
[2024-01-05 07:45] LABS: Basophils # (auto) 0.06 K/uL (0.00-0.20); Basophils % (auto) 0.8 %; Eosinophils % (auto) 5.4 %; Hemoglobin 13.3 g/dl (14.0-18.0); Immature Granulocytes # (auto) 0.02 K/uL (0.01-0.20); Immature Granulocytes % (auto) 0.3 %; Lymphocytes # (auto) 2.33 K/uL (1.20-3.40); Lymphocytes % (auto) 31.2 %; Mean Corpuscular Hemoglobin 32.1 pg (25.0-34.0); Mean Corpuscular Hgb Conc 32.4 g/dL (32.0-36.0); Mean Platelet Volume 10.2 fL (9.4-12.4); Monocytes # (auto) 1.06 K/uL (0.11-0.59); Monocytes % (auto) 14.2 %; Neutrophils % (auto) 48.1 %; Platelet Count 159 K/uL (130-400); RDW Coefficient of Variation 14.2 % (11.5-14.5); RDW Standard Deviation 51.3 fL (36.4-46.3); Red Blood Count 4.14 M/uL (4.70-6.10); White Blood Count 7.47 K/ul (4.8-10.8)
[2024-01-05 08:06] LABS: BUN Creatinine Ratio 13.4 (10-20); Calcium 8.6 mg/dl (8.6-10.3); Creatinine Clr Calc Pharmacy 32.9 ml/min; Est GFR (African American) 29.9 ml/min; Est GFR (Non-African American) 25.8 ml/min; Potassium 4.2 mmol/L (3.5-5.1)
[2024-01-05 08:12] LABS: Prothrombin Time 20.1 Seconds (9.0-12.0)
--- NOTE | 2024-01-05 08:47 | Nephrology Consultation ---
Date of Consultation January 05, 2024 Assessment & Plan (1) ELISABETH (acute kidney injury): UOP not documented. Subjectively non-oliguric. CT did not demonstrate renal obstruction. Electrolytes normal. Volume status acceptable. There is no emergent indication for dialysis at this time. Rate of rise is concerning for possible obstruction. Very atypical presentation for ATN or immune mediated. Volume status acceptable. Repeat labs have been requested now. Hold K citrate. Hold lisinopril + HCTZ. Medications are otherwise appropriately dosed for kidney function. Document strict I/O's. Repeat metabolic profile tomorrow AM. Urine studies pending. (2) Chronic kidney disease, stage 3: CKD III A1. Baseline creatinine ~1.3 mg/dL. 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 Followed by Dr. Wilder. (3) Hypertension: Hypotensive during admission. Lisinopril + HCTZ will be held. (4) Pulmonary embolism: Suspected that Tio failed Warfarin. Started on Lovenox. (5) Bilateral cellulitis of lower leg: Remains on ceftriaxone. (6) History of malignant melanoma: Maintained on pembrolizumab. Recent imaging and oncologic consultation reviewed. No obvious evidence of progression of based on current imaging. Outpatient restaging with PET/CT and MRI brain has been recommended. (7) Prostate nodule: PSA 3.4. Urology follow up has been recommended. Follows with Dr. Rosas. History of Present Illness Reason for Consultation: ELISABETH on CKD Requesting Physician: Geoff Chao DO Attending Physician: Geoff Chao DO History of Present Illness Mr. 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 He also has a history of recurrent uric acid kidney stones. Tio has followed in the [facility] nephrology clinic with Dr. Wilder. Baseline creatinine ~1.3 mg/dL. Medical history is also notable for hypertension, thoracic aortic aneurysm, OA/DJD, history of pulmonary embolism, maintained on warfarin with a history of weakly positive anticardiolipin antibody/possible antiphospholipid syndrome, and stage III malignant melanoma managed with adjuvant pembrolizumab started on 01/12/2023. Tio was referred to the ER at [facility] on January 02 after outpatient CTA chest obtained by his PCP for evaluation of ALVAREZ revealed both chronic nonocclusive and partially calcified emboli within the right lower lobe segmental pulmonary arteries and an occluded subsegmental branch within the right lower lobe suggestive of acute pulmonary embolus. The CT also demonstrated a stable 2 cm right anterior pleural based nodule and focal irregular density within base of right lower lobe. CT abdomen and pelvis revealed a 1.2 cm right renal lesion and possible prostate lesion. Tio has been started on Lovenox. Tio is also being treated with ceftriaxone for possible lower extremity cellulitis. Erythema in the right and left leg (R>L) reportedly starting on December 31. Tio reported subjective chills at home and generalized weakness. Serum creatinine 1.3 mg/dL on admission was 2.3 mg/dL this AM. He denies any urinary complaints or difficulty voiding. BP low. CK 213. Allergies Allergy/AdvReac Type Severity Reaction Status Date / Time gabapentin Allergy Intermediate Rash Verified 01/03/24 19:37 tramadol Allergy Intermediate Rash and Verified 01/03/24 19:37 itchiness hydrocodone Allergy Mild itchy Verified 01/03/24 19:37 oxycodone Allergy Mild itchy Verified 01/03/24 19:37 carbamazepine Allergy Unknown Unknown Verified 01/03/24 19:37 ciprofloxacin Allergy Unknown Unknown Verified 01/03/24 19:37 Home Medications Medication Instructions Recorded Confirmed Type lisinopril 10 1 tab PO QAM #0 tabs 08/31/12 01/03/24 History mg-hydrochlorothiazide 12.5 mg tablet pravastatin 20 mg tablet 20 mg PO HS ##0 02/28/16 01/03/24 History furosemide 40 mg tablet (Lasix) 40 mg PO DAILY PRN Edema #0 tabs 09/08/16 01/03/24 History allopurinol 100 mg tablet 100 mg PO BID 90 days #180 tabs 12/22/21 01/03/24 Rx acetaminophen 500 mg tablet 1,000 mg PO Q8 PRN Pain 10/28/22 01/03/24 History (Tylenol Extra Strength) polyethylene glycol 3350 17 17 g PO DAILY PRN Constipation 01/06/23 01/03/24 History gram/dose oral powder (Miralax) [id number]-[id number] 300 mcg-K 60 1 tab PO 2XWK 06/02/23 01/03/24 History mcg-lycop 600 mcg-lutein 300 mcg tablet (Centrum Silver Men) warfarin 5 mg tablet See Rx Instructions PO UD #120 tabs 08/07/23 01/03/24 Rx pregabalin 150 mg capsule (Lyrica) 300 mg (2 x 150 mg) PO BID #360 08/16/23 01/03/24 Rx caps fluorometholone 0.1 % eye 1 drp OPB DAILY 01/03/24 01/03/24 History drops,suspension potassium citrate 10 mEq (1,080 10 meq PO BID 01/03/24 01/03/24 History mg) tablet,extended release enoxaparin 120 mg/0.8 mL 120 mg (0.8 mL) subcut Q12H 30 01/04/24 Rx subcutaneous syringe (Lovenox) days #48 mL Patient History Medical History Osteoarthritis Surgical History History of left shoulder replacement History of right shoulder replacement History of total left knee replacement (TKR) History of total right knee replacement (TKR) with revision History of colonoscopy History of inguinal hernia repair History of cancer surgery Left side of neck resection + lymph node removal History of tooth extraction History of tonsillectomy and adenoidectomy History of sinus surgery History of cystoscopy History of cataract surgery bilateral History of back surgery L4-L5 with screws Family History Family/Other Diabetes Heart disease Nephrolithiasis Other No family history of adverse response to anesthesia Social History Smoking Status: Never smoker Second Hand Exposure: No; Do You Dip or Chew Tobacco: No; Hx Alcohol Use: No Hx Substance Use: No Preferred Language: Macedonian Communication Ability: Effective Client Service Coordinator Required: No Beliefs That Will Affect Care: None Current Living Situation: Spouse current occupational status: retired Feels Safe at Home: Yes Seatbelt Use: always Assistive Devices: Brace/Splint/Immobilizer and Cane Review of Systems Review of Systems: All systems reviewed & are unremarkable except as noted in HPI & below Constitutional: + chills, + body aches and + weakness; n o fever Cardiovascular: + edema Integumentary: + new lesions and + erythema Physical Exam Constitutional: WD/WN, vitals as above + obese Eyes: + anicteric sclerae Neck: Scar from melanoma resection on left posterior neck Respiratory: normal respiratory effort, lungs clear to auscultation Cardiovascular: Rate/Rhythm: regular rate and regular rhythm Heart Sounds: no murmur Extremities: + edema (2+ pitting edema of the legs to the knees bilaterally) Skin: Erythema of the right anterior, medial, and lateral leg with several superficial blisters and wounds, receding from drawn purple line Very minimal erythema to pink-colored skin consistent with chronic venous stasis on the left leg Neurologic: patellar DTR's 2+ bilat, sensation intact Psychiatric: A+Ox3, euthymic affect Results & Data Vital Signs (Past 12 Hours) Vital Signs Temp Pulse Pulse Resp BP BP Pulse Ox 01/05/24 07:40 36.9 C 78 18 99/57 L 93 01/05/24 02:51 37.3 C 92 H 18 94/54 L 90 01/04/24 23:28 90 01/04/24 23:02 36.7 C 104 H 18 94/54 L 93 01/04/24 22:15 O2 Del Method O2 Flow Rate 01/05/24 07:40 Nasal Cannula 3 01/05/24 02:51 Nasal Cannula 2 01/04/24 23:28 01/04/24 23:02 Nasal Cannula 2 01/04/24 22:15 Nasal Cannula 3 Laboratory Results Laboratory Results - last 24 hr 01/03/24 01/05/24 18:05 06:46 WBC 7.47 RBC 4.14 L Hgb 13.3 L Hct 41.0 L MCV 99.0 MCH 32.1 MCHC 32.4 RDW Std Deviation 51.3 H RDW Coeff of Lisbeth 14.2 Plt Count 159 MPV 10.2 Immature Gran % (Auto) 0.3 Neut % (Auto) 48.1 Lymph % (Auto) 31.2 [place] % (Auto) 14.2 Eos % (Auto) 5.4 Baso % (Auto) 0.8 Neut # (Auto) 3.60 Lymph # (Auto) 2.33 [place] # (Auto) 1.06 H Eos # (Auto) 0.40 Baso # (Auto) 0.06 Immature Gran # (Auto) 0.02 PT 20.1 H INR 2.0 H Sodium 139 Potassium 4.2 Chloride 102 Carbon Dioxide 30 Anion Gap 7 BUN 31 H Creatinine 2.32 H D Est Cr Clr Drug Dosing 32.9 Est GFR ( Amer) 29.9 Est GFR (Non-Af Amer) 25.8 BUN/Creatinine Ratio 13.4 Glucose 120 H Calcium 8.6 Magnesium 2.0 Prostate Specific Ag 3.415 Diagnostic Findings ABDOMEN AND PELVIS CT WITH IV AND ORAL CONTRAST FINDINGS: Thoracic findings are dictated separately on the same day chest CT. Mild linear right basilar densities. No free air. Unremarkable spleen, pancreas, gallbladder, and adrenal glands with unchanged appearance of the liver demonstrating marginal nodularity. Patent portal vein. Cortical thinning of the kidneys. Nonspecific bilateral perinephric stranding. Ill-defined 1.2 cm hypodense focus of the lateral interpolar right kidney with additional subcentimeter hypodensity of the superior pole. No hydronephrosis. Prostatomegaly with ill-defined hypodensity within the mid gland measuring 2.5 cm on image 319. Unremarkable urinary bladder. Atherosclerosis of the aorta without aneurysm. Mildly enlarged iliac chain lymph nodes measure up to 1.3 cm on the left on image 285. These appear similar to the comparison PET. No new or progressive lymphadenopathy. No bowel obstruction or bowel wall thickening. Moderate fecal retention. Colonic diverticulosis. Normal appendix. No ascites or mesenteric inflammation. Unremarkable soft tissues. No acute fracture or destructive bone lesion. Degenerative and postoperative changes of the spine again seen. IMPRESSION: 1. No acute intra-abdominal or intrapelvic abnormality. 2. Unchanged iliac lymphadenopathy. 3. Possible 1.2 cm right renal lesion could be confirmed with a nonemergent follow-up renal ultrasound. 4. Prostamegaly with possible prostate lesion which could be correlated with serum PSA. 5. Chronic findings as above. PG Care Time/CCT Total # of Minutes Spent Total Time Spent with Patient: Total time spent is greater than 50% in coordination of care (as documented) at patient's floor/unit and/or counseling patient: Coding Level of Care Code 90005 IN/OBS CONSULT LVL 5,80M Diagnoses ELISABETH (acute kidney injury) N17.9 Chronic kidney disease, stage 3 N18.3 Hypertension I10 Pulmonary embolism I26.99 Acute cor pulmonale presence: unspecified Chronicity: acute Pulmonary embolism type: unspecified Bilateral cellulitis of lower leg L03.116; L03.115 History of malignant melanoma Z85.820 Prostate nodule N40.2 (4) Pulmonary embolism Acute cor pulmonale presence: unspecified Chronicity: acute Pulmonary embolism type: unspecified Qualified Code(s): I26.99 - Other pulmonary embolism without acute cor pulmonale
--- NOTE | 2024-01-05 10:13 | Hospitalist Progress Note ---
Date of Service January 05, 2024 Assessment & Plan (1) Pulmonary embolism: Plan: Presented to his PCPs office with increased swelling of both legs and increased erythema of the right leg along with fatigue x 1 week and possibly some vague dyspnea Given his history of PE and with leg swelling and fatigue, he was sent for an outpatient chest CTA on 01/02 which revealed chronic nonocclusive emboli in the right lower lobe and possible chronic pulmonary infarct, as well as occluded subsegmental branch within the posterior RLL, which could represent an acute PE Venous Doppler bilateral lower extremities negative for DVT Troponin negative x 3 Remains on supplemental O2- attempting to wean- per respiratory therapy only needed with ambulation this AM. Will monitor for desaturation. If persistent hypoxia may consider Pulmonary evaluation Regarding AC: Patient was on warfarin for over 10 years for history of a remote PE; he did also have weakly positive antiphospholipid antibodies in the past Follows with anticoagulation clinic and recent PT/INR have always been therapeutic ED physician spoke with anticoagulation clinic physician who recommends starting therapeutic Lovenox 120 Mg SQ every 12 hours as this could be considered a failure of Coumadin Heme/Onc Consulted; Recommendations appreciated- agree with continuing therapeutic Lovenox and treating as if Coumadin failure. Given his history of malignant melanoma with positive sentinel lymph node and currently on Keytruda, concern for recurrent malignancy. He did have a CT soft tissue of the neck in 11/2023 that did not show recurrence. He also had a CTA of the chest and CT abdomen/pelvis which did not show findings consistent with metastatic disease, however he did have a right renal lesion and a prostatic lesion. Per oncology recommendations will need repeat staging as an outpatient with a PET/CT scan to rule out recurrent disease as a possible etiology of failure of therapy. Appreciate hematology/oncology given his history of malignancy for further evaluation-appreciate consult-recommends PET scan full body as an outpatient in the near future to rule out recurrence of malignant melanoma Checked PSA-3.4. Will need follow-up with urology for prostate lesion and right renal lesion- Prior hospitalist messaged the urology provider that he follows with to relay this information Continue Lovenox Follow INR as was still in therapeutic range on 01/03 (2) ELISABETH (acute kidney injury): Plan: ELISABETH on CKD Noted worsening renal function. Of note received dose of IV lasix earlier in the hospitalization Holding Lisinopril/Hctz for now Nephrology consulted; Recommendations appreciated STAT US renal ordered to see if obstruction noted Urine studies ordered; Follow up Monitor urine output- per patient has had significant urine output Avoid nephrotoxic agents (3) Cellulitis: Plan: Bilateral lower extremity swelling, erythema right leg greater than left leg that began on Sunday 12/31. He had chills at home and fatigue, generalized weakness likely related to infection Infectious process appears more so in the Right lower extremity. Left lower ex tremity appears more chronic venous stasis changes No leukocytosis or fevers here. CRP and ESR are very minimally elevated Continue ceftriaxone as erythema is improving Was given 1 dose of Lasix 40 Mg IV on admission- will hold further dosing for now given ELISABETH (see above) Recommend elevation of legs when possible Follow clinically Follow CBC, BMP (4) History of malignant melanoma: Plan: As noted above, on Keytruda Heme-onc following Plan for PET scan within the next few weeks after discharge He was to have his final infusion of Keytruda in February to complete 1 year long treatment Appreciate oncology input (5) Hypomagnesemia: Plan: S/p Replete with IV magnesium on 01/04/24 Continue to monitor level (6) Hypertension: Plan: Blood pressures are low normal Will now hold lisinopril/HCTZ, potassium chloride tablets (was taking for hx of kidney stones) given ELISABETH on CKD (7) Chronic kidney disease, stage III (moderate): Plan: Baseline of 1.2-1.3. See above ELISABETH assesmen Now with ELISABETH on CKD Nephrology consulted; See above Holding home lisinopril HCTZ Follow BMP Avoid nephrotoxins (8) Trigeminal neuralgia: Plan: Continue Lyrica Plan Morbid obesity with BMI 41.2-needs weight loss Disposition: Needs continued weaning of O2 and improvement in cellulitis. Prior hospitalist prescribed the Lovenox to his pharmacy and the cost will be $50 per month. Conditional code VTE PPx: Lovenox 1mg/kg BID Called and updated over the phone Admission and Anticipated Discharge Date Admission Date: January 03, 2024 Subjective Patient seen and evaluated bedside. Patient is currently in NAD Remains on 3 L O2- discussed with patient and RN plans to wean as tolerated. Reports erythema in the LE improving Noted increased Cr, discussed with patient. He follows with [facility] Patient has been seen by oncology and nephrology Review of presentation: Patient reports he came to the hospital after approximately 1 week of feeling very fatigued and generally weak, with increased redness and swelling especially in the right leg. He had some chills at home but no definite fevers. He does not recall feeling particularly short of breath but is not sure. He was seen by his PCP and with the leg swelling and the possible shortness of breath and fatigue, and low blood pressures, he was sent for CT angiogram of the chest which revealed a small subsegmental acute PE and chronic PEs Review of Systems Review of Systems: Negative unless indicated in HPI Physical Exam Constitutional: WD/WN, vitals as above + obese Neck: Scar from melanoma resection on left posterior neck, no lymphadenopathy of the neck Respiratory: normal respiratory effort, lungs clear to auscultation Cardiovascular: Rate/Rhythm: regular rate and regular rhythm Heart Sounds: no murmur Extremities: + edema (2+ pitting edema of the legs to the knees bilaterally) Gastrointestinal (Abdomen): normal bowel sounds, soft, nontender, no hepatosplenomegaly Skin: Erythema of the right anterior, medial, and lateral leg with several superficial blisters and wounds, receding from drawn purple line Very minimal erythema to pink-colored skin consistent with chronic venous stasis on the left leg Neurologic: patellar DTR's 2+ bilat, sensation intact Psychiatric: A+Ox3, euthymic affect Results & Data Results & Data Vital Signs (Past 12 Hours) Vital Signs Temp Pulse Pulse Pulse Pulse Pulse Resp 01/05/24 09:58 88 91 H 89 01/05/24 07:40 36.9 C 78 18 01/05/24 02:51 37.3 C 92 H 18 01/04/24 23:28 90 01/04/24 23:02 36.7 C 104 H 18 01/04/24 22:15 Resp Resp Resp BP BP Pulse Ox Pulse Ox 01/05/24 09:58 18 18 16 91 01/05/24 07:40 99/57 L 93 01/05/24 02:51 94/54 L 90 01/04/24 23:28 01/04/24 23:02 94/54 L 93 01/04/24 22:15 Pulse Ox Pulse Ox O2 Del Method O2 Flow Rate O2 Flow Rate 01/05/24 09:58 87 L 95 2 01/05/24 07:40 Nasal Cannula 3 01/05/24 02:51 Nasal Cannula 2 01/04/24 23:28 01/04/24 23:02 Nasal Cannula 2 01/04/24 22:15 Nasal Cannula 3 PG Care Time/CCT Total # of Minutes Spent Total Time Spent with Patient: Total time spent is greater than 50% in coordination of care (as documented) at patient's floor/unit and/or counseling patient: Coding Level of Care Code 48894 SUB INP/OBS CARE 2/35MIN Diagnoses Pulmonary embolism I26.99 ELISABETH (acute kidney injury) N17.9 Cellulitis L03.90 History of malignant melanoma Z85.820 Hypomagnesemia E83.42 Hypertension I10 Chronic kidney disease, stage III (moderate) N18.3 Trigeminal neuralgia G50.0
[2024-01-05 13:43] LABS: Albumin Level 3.6 gm/dl (3.4-5.0); BUN Creatinine Ratio 12.6 (10-20); Calcium 9.2 mg/dl (8.6-10.3); Creatinine Clr Calc Pharmacy 29.3 ml/min; Est GFR (African American) 25.9 ml/min; Est GFR (Non-African American) 22.3 ml/min; Phosphorus 3.7 mg/dl (2.5-4.9); Potassium 4.2 mmol/L (3.5-5.1)
--- NOTE | 2024-01-05 16:50 | Ultrasound Report ---
RENAL ULTRASOUND HISTORY: Abnormal CT. Evaluate right renal lesion. assess for obstruction COMPARISON: Abdomen and pelvis CT 01/03/2024. FINDINGS: Right kidney: 11.4 cm. No hydronephrosis. Normal corticomedullary differentiation with moderate corti agustina thinning. There is 1 cm hypoechoic focus within the interpolar right kidney. This corresponds to the CT finding. This is difficult to characterize but favors a cyst. Left kidney: 14.4 cm. No hydronephrosis. Normal corticomedullary differentiation with moderate cortic al thinning. Bladder: No bladder wall thickening. The bilateral ureteral jets were not identified. IMPRESSION: 1. No hydronephrosis. 2. Moderate cortical thinning/atrophy. 3. There is 1 cm hypoechoic focus within the interpolar right kidney. This corresponds to the CT find ing. This is difficult to characterize but favors a cyst. 6 month renal ultrasound follow-up can be p erformed to ensure stability. ACT 112: Negative or not required by law. Electronically signed by: Rosalio Pop M.D. 01/05/2024 4:48 PM
--- NOTE | 2024-01-05 18:34 | Electrocardiogram Report ---
Test Reason : Blood Pressure : / mmHG Vent. Rate : 086 BPM Atrial Rate : 086 BPM P-R Int : 196 ms QRS Dur : 084 ms QT Int : 366 ms P-R-T Axes : 015 -48 -01 degrees QTc Int : 437 ms Normal sinus rhythm Left axis deviation Nonspecific T wave abnormality Abnormal ECG When compared with ECG of 18-AUG-2022 08:56, Vent. rate has increased BY 30 BPM Confirmed by Champ Cai ([id number]) on 01/05/2024 6:33:57 PM Referred By: Monique Buchanan Confirmed By:Champ Cai
[2024-01-06 06:37] LABS: Appearance Urine Cloudy (Clear); Bacteria Urine Automated None Seen (None Seen); Bilirubin Urine 1+ (Negative); Blood Urine 3+ (Negative); Color Urine Dark Yellow; Epithelial Cell Urine Auto >20 /hpf (0-2); Glucose Urine UA Negative (Negative); Ketones Urine Trace (Negative); Leukocyte Esterase Urine 1+ (Negative); Nitrite Urine Negative (Negative); Protein Urine Trace (Negative); RBC Urine Automated >20 /hpf (0-2); Specific Gravity Urine 1.026 (1.000-1.030); Urobilinogen Urine Negative (Negative); WBC Urine Automated 21-50 /hpf (0-5)
[2024-01-06 06:51] LABS: Cast Urine Automated 0-2 /lpf (0-2)
[2024-01-06 06:52] LABS: Urine Chloride < 15 mmol/L; Urine Potassium 73.5 mmol/L; Urine Sodium 27 mmol/L
[2024-01-06 07:00] LABS: Basophils # (auto) 0.05 K/uL (0.00-0.20); Basophils % (auto) 0.7 %; Eosinophils # (auto) 0.47 K/uL (0.00-0.50); Eosinophils % (auto) 6.6 %; Hematocrit (blood only) 36.5 % (42.0-52.0); Hemoglobin 12.3 g/dl (14.0-18.0); Immature Granulocytes # (auto) 0.02 K/uL (0.01-0.20); Immature Granulocytes % (auto) 0.3 %; Lymphocytes # (auto) 2.52 K/uL (1.20-3.40); Lymphocytes % (auto) 35.5 %; Mean Corpuscular Hemoglobin 32.5 pg (25.0-34.0); Mean Corpuscular Hgb Conc 33.7 g/dL (32.0-36.0); Mean Corpuscular Volume 96.3 fL (80.0-100.0); Mean Platelet Volume 10.5 fL (9.4-12.4); Monocytes # (auto) 1.08 K/uL (0.11-0.59); Monocytes % (auto) 15.2 %; Neutrophils # (auto) 2.96 K/uL (1.40-6.50); Neutrophils % (auto) 41.7 %; Platelet Count 144 K/uL (130-400); RDW Standard Deviation 49.6 fL (36.4-46.3); Red Blood Count 3.79 M/uL (4.70-6.10)
[2024-01-06 07:19] LABS: Albumin Globulin Ratio 1.1 (0.9-2); Albumin Level 3.4 gm/dl (3.4-5.0); BUN Creatinine Ratio 14.7 (10-20); Bilirubin,Total 0.5 mg/dl (0.2-1.0); Calcium 8.2 mg/dl (8.6-10.3); Creatinine Clr Calc Pharmacy 27.5 ml/min; Est GFR (African American) 23.9 ml/min; Est GFR (Non-African American) 20.6 ml/min; Magnesium 1.9 mg/dl (1.7-2.4); Potassium 3.9 mmol/L (3.5-5.1); Total Protein 6.4 gm/dl (6.0-8.3)
[2024-01-06 07:44] LABS: INR 1.8 (0.9-1.1); Prothrombin Time 18.2 Seconds (9.0-12.0)
--- NOTE | 2024-01-06 08:49 | Nephrology Progress Note ---
Date of Service January 06, 2024 Assessment & Plan (1) ELISABETH (acute kidney injury): Plan: * ELISABETH likely on the basis of contrast-induced nephropathy * Rate of decline in kidney function appears to be slowing * Volume status and electrolyte balance are acceptable. No acute indication for hemodialysis today. * Will order I&O, daily weight * Hold K citrate, lisinopril + HCTZ * Monitor daily BMP (2) Chronic kidney disease, stage 3: Plan: * CKD stage G3/A1. Baseline creatinine 1.3 mg/dL. 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 He has been transitioned to Lovenox * Will require close oncology follow-up after hospitalization (5) Bilateral cellulitis of lower leg: Plan: * Remains on ceftriaxone. (6) History of malignant melanoma: Plan: * Maintained on pembrolizumab. Recent imaging and oncologic consultation reviewed. No obvious evidence of progression of based on current imaging. Outpatient restaging with PET/CT and MRI brain has been recommended. (7) Prostate nodule: Plan: * PSA 3.4. Urology follow up has been recommended. Follows with Dr. Rosas. Admission and Anticipated Discharge Date Admission Date: January 03, 2024 Subjective Mr. Jimenez was evaluated in his hospital room this morning. He was seated in a chair breathing comfortably on O2 at 3 L/min nasal cannula. He denied fever, flank pain, hematuria or difficulty voiding. Review of Systems Constitutional: no fever Eyes: no problem reported Ear, Nose, Mouth, Throat: no problem reported Respiratory: no cough and no dyspnea Cardiovascular: no chest pain Gastrointestinal: no abdominal pain, no nausea, no vomiting and no diarrhea/loose stools Genitourinary: no dysuria, no hematuria or no flank pain Integumentary: no rash Physical Exam Constitutional: not in distress Eyes: PERRL, conjunctivae normal, anicteric sclerae ENMT: external ear and nose normal, oropharynx normal Neck: trachea midline, no thyromegaly Respiratory: normal respiratory effort, lungs clear to auscultation Cardiovascular: Rate/Rhythm: regular rate and regular rhythm Extremities: + edema (Trace pretibial) Gastrointestinal (Abdomen): normal bowel sounds, soft, nontender, no hepatosplenomegaly Skin: no rashes, warm and dry Neurologic: Speech / Cognition: normal speech and normal cognition Results & Data Vital Signs (Past 12 Hours) Vital Signs Temp Pulse Pulse Resp BP Pulse Ox O2 Del Method 01/06/24 07:28 36.5 C 79 18 108/64 96 Nasal Cannula 01/06/24 03:47 36.5 C 82 18 109/66 93 Nasal Cannula 01/05/24 23:32 36.4 C L 81 16 100/59 L 93 Nasal Cannula 01/05/24 23:17 76 01/05/24 22:14 Nasal Cannula O2 Flow Rate 01/06/24 07:28 3 01/06/24 03:47 3 01/05/24 23:32 3 01/05/24 23:17 01/05/24 22:14 3 Laboratory Results Laboratory Results - last 24 hr 01/05/24 01/05/24 01/06/24 06:46 13:09 06:15 WBC 7.47 RBC 4.14 L Hgb 13.3 L Hct 41.0 L MCV 99.0 MCH 32.1 MCHC 32.4 RDW Std Deviation 51.3 H RDW Coeff of Lisbeth 14.2 Plt Count 159 MPV 10.2 Immature Gran % (Auto) 0.3 Neut % (Auto) 48.1 Lymph % (Auto) 31.2 Blaine % (Auto) 14.2 Eos % (Auto) 5.4 Baso % (Auto) 0.8 Neut # (Auto) 3.60 Lymph # (Auto) 2.33 Blaine # (Auto) 1.06 H Eos # (Auto) 0.40 Baso # (Auto) 0.06 Immature Gran # (Auto) 0.02 PT 20.1 H INR 2.0 H Sodium 139 136 Potassium 4.2 4.2 Chloride 102 101 Carbon Dioxide 30 30 Anion Gap 7 5 BUN 31 H 33 H Creatinine 2.32 H D 2.61 H Est Cr Clr Drug Dosing 32.9 29.3 Est GFR ( Amer) 29.9 25.9 Est GFR (Non-Af Amer) 25.8 22.3 BUN/Creatinine Ratio 13.4 12.6 Glucose 120 H 141 H Calcium 8.6 9.2 Phosphorus 3.7 Magnesium 2.0 Total Bilirubin AST ALT Alkaline Phosphatase Total Creatine Kinase 218 Total Protein Albumin 3.6 Globulin Albumin/Globulin Ratio Urine Color Dark Yellow Urine Appearance Cloudy A Urine pH 5.0 Ur Specific [place] 1.026 Urine Protein Trace H Urine Glucose (UA) Negative Urine Ketones Trace H Urine Blood 3+ H Urine Nitrite Negative Urine Bilirubin 1+ H Urine Urobilinogen Negative Ur Leukocyte Esterase 1+ H Urine WBC (Auto) 21-50 H Urine RBC (Auto) >20 H U Hyaline Cast (Auto) 0-2 U Epithel Cells (Auto) >20 H Urine Bacteria (Auto) None Seen Ur Random Creatinine 530.0 Ur Random Urea Nitrogn Pending Urine Sodium 27 Urine Potassium 73.5 Urine Chloride < 15 01/06/24 06:23 WBC 7.10 RBC 3.79 L Hgb 12.3 L Hct 36.5 L MCV 96.3 MCH 32.5 MCHC 33.7 RDW Std Deviation 49.6 H RDW Coeff of Lisbeth 14.0 Plt Count 144 MPV 10.5 Immature Gran % (Auto) 0.3 Neut % (Auto) 41.7 Lymph % (Auto) 35.5 Blaine % (Auto) 15.2 Eos % (Auto) 6.6 Baso % (Auto) 0.7 Neut # (Auto) 2.96 Lymph # (Auto) 2.52 Blaine # (Auto) 1.08 H Eos # (Auto) 0.47 Baso # (Auto) 0.05 Immature Gran # (Auto) 0.02 PT 18.2 H INR 1.8 H Sodium 135 L Potassium 3.9 Chloride 100 Carbon Dioxide 28 Anion Gap 7 BUN 41 H Creatinine 2.79 H Est Cr Clr Drug Dosing 27.5 Est GFR ( Amer) 23.9 Est GFR (Non-Af Amer) 20.6 BUN/Creatinine Ratio 14.7 Glucose 122 H Calcium 8.2 L Phosphorus Magnesium 1.9 Total Bilirubin 0.5 AST 42 H ALT 31 Alkaline Phosphatase 70 Total Creatine Kinase Total Protein 6.4 Albumin 3.4 Globulin 3.0 Albumin/Globulin Ratio 1.1 Urine Color Urine Appearance Urine pH Ur Specific [place] Urine Protein Urine Glucose (UA) Urine Ketones Urine Blood Urine Nitrite Urine Bilirubin Urine Urobilinogen Ur Leukocyte Esterase Urine WBC (Auto) Urine RBC (Auto) U Hyaline Cast (Auto) U Epithel Cells (Auto) Urine Bacteria (Auto) Ur Random Creatinine Ur Random Urea Nitrogn Urine Sodium Urine Potassium Urine Chloride PG Care Time/CCT Total # of Minutes Spent Total Time Spent with Patient: Total time spent is greater than 50% in coordination of care (as documented) at patient's floor/unit and/or counseling patient: Coding Level of Care Code 68748 SUB INP/OBS CARE 350MIN Diagnoses ELISABETH (acute kidney injury) N17.9 Chronic kidney disease, stage 3 N18.3 Hypertension I10 Pulmonary embolism I26.99 Acute cor pulmonale presence: unspecified Chronicity: acute Pulmonary embolism type: unspecified Bilateral cellulitis of lower leg L03.116; L03.115 History of malignant melanoma Z85.820 Prostate nodule N40.2 (4) Pulmonary embolism Acute cor pulmonale presence: unspecified Chronicity: acute Pulmonary embolism type: unspecified Qualified Code(s): I26.99 - Other pulmonary embolism without acute cor pulmonale
--- NOTE | 2024-01-06 10:05 | Hospitalist Progress Note ---
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 But then noted desaturation placed back on O2. Will attempt to further wean today. If persistent hypoxia may consider Pulmonary evaluation. Will hold off from diuresing volume given worsening ELISABETH. Regarding AC: Patient was on warfarin for over 10 years for history of a remote PE; he did also have weakly positive antiphospholipid antibodies in the past Follows with anticoagulation clinic and recent PT/INR have always been therapeutic ED physician spoke with anticoagulation clinic physician who recommends starting therapeutic Lovenox 120 Mg SQ every 12 hours as this could be considered a failure of Coumadin Heme/Onc Consulted; Recommendations appreciated- agree with continuing therapeutic Lovenox and treating as if Coumadin failure. Given his history of malignant melanoma with positive sentinel lymph node and currently on Keytruda, concern for recurrent malignancy. He did have a CT soft tissue of the neck in 11/2023 that did not show recurrence. He also had a CTA of the chest and CT abdomen/pelvis which did not show findings consistent with metastatic disease, however he did have a right renal lesion and a prostatic lesion. Per oncology recommendations will need repeat staging as an outpatient with a PET/CT scan to rule out recurrent disease as a possible etiology of failure of therapy. Appreciate hematology/oncology given his history of malignancy for further evaluation-appreciate consult-recommends PET scan full body as an outpatient in the near future to rule out recurrence of malignant melanoma Checked PSA-3.4. Will need follow-up with urology for prostate lesion and right renal lesion- Prior hospitalist messaged the urology provider that he follows with to relay t his information Continue Lovenox Given persistent hypoxia- would consider slight dose of diuretic but would hold for now given worsening renal function. Of note patient received a dose of diuresis during hospitalization. (2) ELISABETH (acute kidney injury): Plan: ELISABETH on CKD Noted worsening renal function. Of note received IV contrast during hospitalization- possibly 2/2 to contrast induced nephropathy Holding Lisinopril/Hctz for now Holding Potassium citrate for now Nephrology consulted; Recommendations appreciated US renal: Negative for obstruction/ hydronephrosis Urine studies repeated for this AM- will discuss with lead investigator Monitor urine output- decreased output noted this AM Bladder scans- discussed with RN to monitor to ensure no obstruction noted Avoid nephrotoxic agents Will discuss with nephro any further changes in management (3) Cellulitis: Plan: Bilateral lower extremity swelling, erythema right leg greater than left leg that began on Sunday 12/31. He had chills at home and fatigue, generalized weakness likely related to infection Infectious process appears more so in the Right lower extremity. Left lower extremity appears more chronic venous stasis changes No leukocytosis or fevers here. CRP and ESR are very minimally elevated Continue ceftriaxone as erythema is improving Was given 1 dose of Lasix 40 Mg IV on admission- will hold further dosing of Lasix for now given ELISABETH (see above) Recommend elevation of legs when possible Follow clinically Follow CBC, BMP (4) History of malignant melanoma: Plan: As noted above, on Keytruda Heme-onc following Plan for PET scan within the next few weeks after discharge He was to have his final infusion of Keytruda in February to complete 1 year long treatment Appreciate oncology input (5) Hypomagnesemia: Plan: S/p Replete with IV magnesium on 01/04/24 Continue to monitor level (6) Hypertension: Plan: Blood pressures are low normal Will continue hold lisinopril/HCTZ, potassium chloride tablets (was taking for hx of kidney stones) given ELISABETH on CKD (7) Chronic kidney disease, stage III (moderate): Plan: Baseline of 1.2-1.3. See above ELISABETH assesmen Now with ELISABETH on CKD Nephrology consulted; See above Holding home lisinopril HCTZ Follow BMP Avoid nephrotoxins (8) Trigeminal neuralgia: Plan: Continue Lyrica Plan Morbid obesity with BMI 41.2-needs weight loss Disposition: Needs continued weaning of O2 and improvement in cellulitis as well as improvement of renal function. Prior hospitalist prescribed the Lovenox to his pharmacy and the cost will be $50 per month. Conditional code VTE PPx: Lovenox 1mg/kg BID Admission and Anticipated Discharge Date Admission Date: January 03, 2024 Subjective Patient seen and evaluated bedside Patient currently denies any acute complaints Cr continues to rise Decrease in urine output noted Repeat urine studies sent this AM Bladder scan negative for obstruction. US negative for hydro/obstructive findings Patient was noted to be weaned off O2 yesterday- only required ambulatory O2. Then in the afternoon was placed back on O2 due to a noted desaturation Patient denies dyspnea, cough, congestion, chest pain Review of presentation: Patient reports he came to the hospital after approximately 1 week of feeling very fatigued and generally weak, with increased redness and swelling especially in the right leg. He had some chills at home but no definite fevers. He does not recall feeling particularly short of breath but is not sure. He was seen by his PCP and with the leg swelling and the possible shortness of breath and fatigue, and low blood pressures, he was sent for CT angiogram of the chest which revealed a small subsegmental acute PE and chronic PEs Review of Systems Review of Systems: Negative unless indicated in HPI Physical Exam Constitutional: WD/WN, vitals as above + obese Respiratory: normal respiratory effort, lungs clear to auscultation Cardiovascular: Rate/Rhythm: regular rate and regular rhythm Heart Sounds: no murmur Extremities: + edema (2+ pitting edema of the legs to the knees bilaterally) Gastrointestinal (Abdomen): normal bowel sounds, soft, nontender, no hepatosplenomegaly Neurologic: patellar DTR's 2+ bilat, sensation intact Psychiatric: A+Ox3, euthymic affect Results & Data Results & Data Vital Signs (Past 12 Hours) Vital Signs Temp Pulse Pulse Resp BP Pulse Ox O2 Del Method 01/06/24 07:28 36.5 C 79 18 108/64 96 Nasal Cannula 01/06/24 03:47 36.5 C 82 18 109/66 93 Nasal Cannula 01/05/24 23:32 36.4 C L 81 16 100/59 L 93 Nasal Cannula 01/05/24 23:17 76 01/05/24 22:14 Nasal Cannula O2 Flow Rate 01/06/24 07:28 3 01/06/24 03:47 3 01/05/24 23:32 3 01/05/24 23:17 01/05/24 22:14 3 PG Care Time/CCT Total # of Minutes Spent Total Time Spent with Patient: Total time spent is greater than 50% in coordination of care (as documented) at patient's floor/unit and/or counseling patient: Coding Level of Care Code 20795 SUB INP/OBS CARE 2/35MIN Diagnoses Pulmonary embolism I26.99 ELISABETH (acute kidney injury) N17.9 Cellulitis L03.90 History of malignant melanoma Z85.820 Hypomagnesemia E83.42 Hypertension I10 Chronic kidney disease, stage III (moderate) N18.3 Trigeminal neuralgia G50.0
[2024-01-06] MEDS: POLYETHYLENE (MIRALAX) 17 GM PACK PO STA (21:22)
[2024-01-07 06:32] LABS: Basophils # (auto) 0.06 K/uL (0.00-0.20); Basophils % (auto) 0.9 %; Eosinophils # (auto) 0.46 K/uL (0.00-0.50); Eosinophils % (auto) 6.8 %; Hematocrit (blood only) 37.6 % (42.0-52.0); Hemoglobin 12.4 g/dl (14.0-18.0); Immature Granulocytes # (auto) 0.02 K/uL (0.01-0.20); Immature Granulocytes % (auto) 0.3 %; Lymphocytes # (auto) 2.08 K/uL (1.20-3.40); Lymphocytes % (auto) 30.9 %; Mean Corpuscular Hemoglobin 32.2 pg (25.0-34.0); Mean Corpuscular Volume 97.7 fL (80.0-100.0); Mean Platelet Volume 10.3 fL (9.4-12.4); Monocytes # (auto) 1.06 K/uL (0.11-0.59); Monocytes % (auto) 15.7 %; Neutrophils # (auto) 3.06 K/uL (1.40-6.50); Neutrophils % (auto) 45.4 %; Platelet Count 149 K/uL (130-400); RDW Coefficient of Variation 13.9 % (11.5-14.5); RDW Standard Deviation 49.6 fL (36.4-46.3); Red Blood Count 3.85 M/uL (4.70-6.10); White Blood Count 6.74 K/ul (4.8-10.8)
[2024-01-07 06:47] LABS: Albumin Globulin Ratio 1.1 (0.9-2); Albumin Level 3.4 gm/dl (3.4-5.0); BUN Creatinine Ratio 24.2 (10-20); Bilirubin,Total 0.5 mg/dl (0.2-1.0); Calcium 8.4 mg/dl (8.6-10.3); Creatinine Clr Calc Pharmacy 42.3 ml/min; Est GFR (Non-African American) 34.6 ml/min; Magnesium 1.9 mg/dl (1.7-2.4); Total Protein 6.4 gm/dl (6.0-8.3)
--- NOTE | 2024-01-07 09:08 | Nephrology Progress Note ---
Date of Service January 07, 2024 Assessment & Plan (1) ELISABETH (acute kidney injury): Plan: * ELISABETH likely on the basis of contrast-induced nephropathy * Patient is currently in the recovery phase. Urine output was 1100 cc last shift. Creatinine has improved from 2.79 down to 1.82 last 24 hours (baseline creatinine 1.3). * Volume status and electrolyte balance are acceptable. No acute indication for hemodialysis * Continue to monitor I&O, daily weight * Hold K citrate, lisinopril + HCTZ * Monitor daily BMP (2) Chronic kidney disease, stage 3: Plan: * CKD stage G3/A1. Baseline creatinine 1.3 mg/dL. 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 Now transitioned to Lovenox * Will require close oncology follow-up after hospitalization (5) Bilateral cellulitis of lower leg: Plan: * Cellulitis markedly improved * Remains on ceftriaxone. (6) History of malignant melanoma: Plan: * Maintained on pembrolizumab. Recent imaging and oncologic consultation reviewed. No obvious evidence of progression of based on current imaging. Outpatient restaging with PET/CT and MRI brain has been recommended. (7) Prostate nodule: Plan: * PSA 3.4. Urology follow up has been recommended. Follows with Dr. Rosas. Admission and Anticipated Discharge Date Admission Date: January 03, 2024 Subjective Mr. Maldonado was evaluated in his hospital room this morning. He was seated in a chair breathing comfortably on O2 at 2 L/min nasal cannula. He denied fever, flank pain, hematuria or difficulty voiding. Urine output was 1100 cc last shift. Review of Systems Constitutional: no fever Eyes: no problem reported Ear, Nose, Mouth, Throat: no problem reported Respiratory: no cough and no dyspnea Cardiovascular: no chest pain Gastrointestinal: no abdominal pain, no nausea, no vomiting and no diarrhea/loose stools Genitourinary: no dysuria, no hematuria or no flank pain Integumentary: no rash Physical Exam Constitutional: not in distress Eyes: PERRL, conjunctivae normal, anicteric sclerae ENMT: external ear and nose normal, oropharynx normal Neck: trachea midline, no thyromegaly Respiratory: normal respiratory effort, lungs clear to auscultation Cardiovascular: Rate/Rhythm: regular rate and regular rhythm Extremities: + edema (Trace pretibial) Gastrointestinal (Abdomen): normal bowel sounds, soft, nontender, no hepatosplenomegaly Skin: no rashes, warm and dry Neurologic: Speech / Cognition: normal speech and normal cognition Results & Data Vital Signs (Past 12 Hours) Vital Signs Temp Pulse Pulse Resp BP Pulse Ox O2 Del Method 01/07/24 07:44 36.9 C 78 18 128/73 96 Nasal Cannula 01/07/24 07:30 Nasal Cannula 01/07/24 07:19 76 01/07/24 03:45 37.1 C 90 18 136/68 92 Nasal Cannula 01/06/24 23:39 36.6 C 88 16 126/69 93 Nasal Cannula 01/06/24 23:20 85 01/06/24 21:44 Nasal Cannula O2 Flow Rate 01/07/24 07:44 2 01/07/24 07:30 2 01/07/24 07:19 01/07/24 03:45 2 01/06/24 23:39 2 01/06/24 23:20 01/06/24 21:44 2 Laboratory Results Laboratory Results - last 24 hr 01/07/24 06:04 WBC 6.74 RBC 3.85 L Hgb 12.4 L Hct 37.6 L MCV 97.7 MCH 32.2 MCHC 33.0 RDW Std Deviation 49.6 H RDW Coeff of Lisbeth 13.9 Plt Count 149 MPV 10.3 Immature Gran % (Auto) 0.3 Neut % (Auto) 45.4 Lymph % (Auto) 30.9 [place] % (Auto) 15.7 Eos % (Auto) 6.8 Baso % (Auto) 0.9 Neut # (Auto) 3.06 Lymph # (Auto) 2.08 [place] # (Auto) 1.06 H Eos # (Auto) 0.46 Baso # (Auto) 0.06 Immature Gran # (Auto) 0.02 Sodium 135 L Potassium 4.0 Chloride 100 Carbon Dioxide 27 Anion Gap 8 BUN 44 H Creatinine 1.82 H D Est Cr Clr Drug Dosing 42.3 Est GFR ( Amer) 40.0 Est GFR (Non-Af Amer) 34.6 BUN/Creatinine Ratio 24.2 H Glucose 121 H Calcium 8.4 L Phosphorus 3.0 Magnesium 1.9 Total Bilirubin 0.5 AST 42 H ALT 31 Alkaline Phosphatase 73 Total Protein 6.4 Albumin 3.4 Globulin 3.0 Albumin/Globulin Ratio 1.1 PG Care Time/CCT Total # of Minutes Spent Total Time Spent with Patient: Total time spent is greater than 50% in coordination of care (as documented) at patient's floor/unit and/or counseling patient: Coding Level of Care Code 12310 SUB INP/OBS CARE 3/50MIN Diagnoses ELISABETH (acute kidney injury) N17.9 Chronic kidney disease, stage 3 N18.3 Hypertension I10 Pulmonary embolism I26.99 Acute cor pulmonale presence: unspecified Chronicity: acute Pulmonary embolism type: unspecified Bilateral cellulitis of lower leg L03.116; L03.115 History of malignant melanoma Z85.820 Prostate nodule N40.2 (4) Pulmonary embolism Acute cor pulmonale presence: unspecified Chronicity: acute Pulmonary embolism type: unspecified Qualified Code(s): I26.99 - Other pulmonary embolism without acute cor pulmonale
--- NOTE | 2024-01-07 09:10 | Hospitalist Progress Note ---
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 But then noted desaturation placed back on O2. Currently on 01/07/24 on 2 L O2- will continue to weans as permitted. Decreased from 3 L yesterday. Regarding AC: Patient was on warfarin for over 10 years for history of a remote PE; he did also have weakly positive antiphospholipid antibodies in the past Follows with anticoagulation clinic and recent PT/INR have always been therapeutic ED physician spoke with anticoagulation clinic physician who recommends starting therapeutic Lovenox 120 Mg SQ every 12 hours as this could be considered a failure of Coumadin Heme/Onc Consulted; Recommendations appreciated- agree with continuing therapeutic Lovenox and treating as if Coumadin failure. Given his history of malignant melanoma with positive sentinel lymph node and currently on Keytruda, concern for recurrent malignancy. He did have a CT soft tissue of the neck in 11/2023 that did not show recurrence. He also had a CTA of the chest and CT abdomen/pelvis which did not show findings consistent with metastatic disease, however he did have a right renal lesion and a prostatic lesion. Per oncology recommendations will need repeat staging as an outpatient with a PET/CT scan to rule out recurrent disease as a possible etiology of failure of therapy. Appreciate hematology/oncology given his history of malignancy for further evaluation-appreciate consult-recommends PET scan full body as an outpatient in the near future to rule out recurrence of malignant melanoma Checked PSA-3.4. Will need follow-up with urology for prostate lesion and right renal lesion- Prior hospitalist messaged the urology provider that he follows with to relay this information Continue Lovenox (2) ELISABETH (acute kidney injury): Plan: ELISABETH on CKD -Of note received IV contrast during hospitalization- possibly 2/2 to contrast induced nephropathy -Holding Lisinopril/Hctz for now -Holding Potassium citrate (hx of renal stones) for now - renal: Negative for obstruction/ hydronephrosis -Urine studies repeated: reviewed -Urine output was decreased on 01/04 now improving again -Cr now improving -Likely contrast induced nephropathy -Continue to closely monitor urine ouput -Monitor serial Bladder scans -Avoid nephrotoxic agents -Nephrology following: Recommendations appreciated (3) Cellulitis: Plan: -Bilateral lower extremity swelling, erythema right leg greater than left leg that began on Sunday 12/31. He had chills at home and fatigue, generalized weakness likely related to infection -Infectious process appears more so in the Right lower extremity. Left lower e xtremity appears more chronic venous stasis changes No leukocytosis or fevers here. CRP and ESR are minimally elevated -Continue ceftriaxone as erythema is improving -Was given 1 dose of Lasix 40 Mg IV on admission- will hold further dosing of Lasix for now given ELISABETH (see above) -Recommend elevation of legs when possible -Follow clinically: improving- may consider transition to po abx in the next 24 hours -Follow CBC, BMP (4) History of malignant melanoma: Plan: -As noted above, on Keytruda -Heme-onc following -Plan for PET scan within the next few weeks after discharge -He was to have his final infusion of Keytruda in February to complete 1 year long treatment -Appreciate oncology input (5) Hypomagnesemia: Plan: -S/p Replete with IV magnesium on 01/04/24 -Continue to monitor level (6) Hypertension: Plan: -Blood pressures are low normal -Will continue hold lisinopril/HCTZ given ELISABETH on CKD (7) Chronic kidney disease, stage III (moderate): Plan: -Baseline of 1.2-1.3. See above ELISABETH assesmen -Now with ELISABETH on CKD -Nephrology consulted; See above -Holding home lisinopril HCTZ -Follow BMP -Avoid nephrotoxins (8) Trigeminal neuralgia: Plan: -Continue Lyrica Plan Morbid obesity with BMI 41.2-needs weight loss Disposition: Needs continued weaning of O2 and improvement in cellulitis as well as improvement of renal function. Prior hospitalist prescribed the Lovenox to his pharmacy and the cost will be $50 per month. Conditional code VTE PPx: Lovenox 1mg/kg BID Admission and Anticipated Discharge Date Admission Date: January 03, 2024 Subjective Patient seen and evaluated bedside Patient is currently in NAD O2 requirements improving down to 2 L from 3 L yesterday- will continue to wean as permitted. Will need likely repeat ambulatory pulse ox testing once fully weaned Cr improving now Patient states urine output improving now Patient denies chest pain, palpitations, SOB, fevers, chills nausea or vomitting Review of presentation: Patient reports he came to the hospital after approximately 1 week of feeling very fatigued and generally weak, with increased redness and swelling especially in the right leg. He had some chills at home but no definite fevers. He does not recall feeling particularly short of breath but is not sure. He was seen by his PCP and with the leg swelling and the possible shortness of breath and fatigue, and low blood pressures, he was sent for CT angiogram of the chest which revealed a small subsegmental acute PE and chronic PEs Review of Systems Review of Systems: Negative unless indicated in HPI Physical Exam Constitutional: WD/WN, vitals as above + obese Respiratory: normal respiratory effort, lungs clear to auscultation Cardiovascular: Rate/Rhythm: regular rate and regular rhythm Heart Sounds: no murmur Extremities: + edema (2+ pitting edema of the legs to the knees bilaterally) Gastrointestinal (Abdomen): normal bowel sounds, soft, nontender, no hepatosplenomegaly Neurologic: patellar DTR's 2+ bilat, sensation intact Psychiatric: A+Ox3, euthymic affect Results & Data Results & Data Vital Signs (Past 12 Hours) Vital Signs Temp Pulse Pulse Resp BP Pulse Ox O2 Del Method 01/07/24 07:44 36.9 C 78 18 128/73 96 Nasal Cannula 01/07/24 07:30 Nasal Cannula 01/07/24 07:19 76 01/07/24 03:45 37.1 C 90 18 136/68 92 Nasal Cannula 01/06/24 23:39 36.6 C 88 16 126/69 93 Nasal Cannula 01/06/24 23:20 85 01/06/24 21:44 Nasal Cannula O2 Flow Rate 01/07/24 07:44 2 01/07/24 07:30 2 01/07/24 07:19 01/07/24 03:45 2 01/06/24 23:39 2 01/06/24 23:20 01/06/24 21:44 2 PG Care Time/CCT Total # of Minutes Spent Total Time Spent with Patient: Total time spent is greater than 50% in coordination of care (as documented) at patient's floor/unit and/or counseling patient: Coding Level of Care Code 23051 SUB INP/OBS CARE 2/35MIN Diagnoses Pulmonary embolism I26.99 ELISABETH (acute kidney injury) N17.9 Cellulitis L03.90 History of malignant melanoma Z85.820 Hypomagnesemia E83.42 Hypertension I10 Chronic kidney disease, stage III (moderate) N18.3 Trigeminal neuralgia G50.0
[2024-01-07] MEDS ORDERED: SENNA 8.6 MG TAB PO SCH (09:15)
[2024-01-07] MEDS: POLYETHYLENE (MIRALAX) 17 GM PACK PO SCH ×2 (09:17→09:18)
[2024-01-08 06:38] LABS: Basophils # (auto) 0.06 K/uL (0.00-0.20); Basophils % (auto) 0.9 %; Eosinophils # (auto) 0.38 K/uL (0.00-0.50); Eosinophils % (auto) 5.9 %; Hematocrit (blood only) 36.4 % (42.0-52.0); Hemoglobin 12.2 g/dl (14.0-18.0); Immature Granulocytes # (auto) 0.04 K/uL (0.01-0.20); Immature Granulocytes % (auto) 0.6 %; Lymphocytes # (auto) 1.99 K/uL (1.20-3.40); Mean Corpuscular Hgb Conc 33.5 g/dL (32.0-36.0); Mean Corpuscular Volume 95.5 fL (80.0-100.0); Mean Platelet Volume 10.3 fL (9.4-12.4); Monocytes # (auto) 1.14 K/uL (0.11-0.59); Monocytes % (auto) 17.8 %; Neutrophils % (auto) 43.8 %; Platelet Count 154 K/uL (130-400); RDW Coefficient of Variation 13.9 % (11.5-14.5); RDW Standard Deviation 48.6 fL (36.4-46.3); Red Blood Count 3.81 M/uL (4.70-6.10); White Blood Count 6.41 K/ul (4.8-10.8)
[2024-01-08 07:00] LABS: Albumin Globulin Ratio 1.1 (0.9-2); Albumin Level 3.4 gm/dl (3.4-5.0); BUN Creatinine Ratio 26.2 (10-20); Bilirubin,Total 0.6 mg/dl (0.2-1.0); Calcium 8.6 mg/dl (8.6-10.3); Creatinine Clr Calc Pharmacy 55.1 ml/min; Est GFR (African American) 54.5 ml/min; Magnesium 1.9 mg/dl (1.7-2.4); Phosphorus 2.8 mg/dl (2.5-4.9); Potassium 4.5 mmol/L (3.5-5.1); Total Protein 6.4 gm/dl (6.0-8.3)
--- NOTE | 2024-01-08 08:49 | Nephrology Progress Note ---
Date of Service January 08, 2024 Assessment & Plan (1) ELISABETH (acute kidney injury): Plan: * ELISABETH likely on the basis of contrast-induced nephropathy * Patient is currently in the recovery phase. Urine output was 1100 cc last shift. Creatinine has improved from 1.8 to 1.4 last 24 hours (baseline creatinine 1.3). * Volume status and electrolyte balance are acceptable. No acute indication for hemodialysis * Continue to monitor I&O, daily weight * Hold K citrate, lisinopril + HCTZ. These can be restarted as outpatient if needed * Monitor daily BMP * In preparation for discharge I have asked my medical office worker staff to schedule a hospital follow up visit in my office within next 2 weeks. Orders have been entered into EMR for nonfasting blood work to be completed 2 days prior to OV (2) Chronic kidney disease, stage 3: Plan: * CKD stage G3/A1. Baseline creatinine 1.3 mg/dL. 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 Now transitioned to Lovenox * Will require close oncology follow-up after hospitalization (5) Bilateral cellulitis of lower leg: Plan: * Cellulitis markedly improved * Remains on ceftriaxone. (6) History of malignant melanoma: Plan: * Maintained on pembrolizumab. Recent imaging and oncologic consultation reviewed. No obvious evidence of progression of based on current imaging. Outpatient restaging with PET/CT and MRI brain has been recommended. (7) Prostate nodule: Plan: * PSA 3.4. Urology follow up has been recommended. Follows with Dr. Rosas. Admission and Anticipated Discharge Date Admission Date: January 03, 2024 Subjective Mr. Maldonado was evaluated in his hospital room this morning. He was seated in a chair breathing comfortably on O2 at 2 L/min nasal cannula. He denied fever, flank pain, hematuria or difficulty voiding. Urine output was 2 L last shift. Review of Systems Constitutional: no fever Eyes: no problem reported Ear, Nose, Mouth, Throat: no problem reported Respiratory: no cough and no dyspnea Cardiovascular: no chest pain Gastrointestinal: no abdominal pain, no nausea, no vomiting and no diarrhea/loose stools Genitourinary: no dysuria, no hematuria or no flank pain Integumentary: no rash Physical Exam Constitutional: not in distress Eyes: PERRL, conjunctivae normal, anicteric sclerae ENMT: external ear and nose normal, oropharynx normal Neck: trachea midline, no thyromegaly Respiratory: normal respiratory effort, lungs clear to auscultation Cardiovascular: Rate/Rhythm: regular rate and regular rhythm Extremities: + edema (Trace pretibial) Gastrointestinal (Abdomen): normal bowel sounds, soft, nontender, no hepatosplenomegaly Skin: no rashes, warm and dry Neurologic: Speech / Cognition: normal speech and normal cognition Results & Data Vital Signs (Past 12 Hours) Vital Signs Temp Pulse Pulse Resp BP Pulse Ox O2 Del Method 01/08/24 07:54 Nasal Cannula 01/08/24 07:46 36.6 C 78 20 138/77 94 Nasal Cannula 01/08/24 07:07 77 01/08/24 03:40 36.6 C 83 18 128/68 94 Nasal Cannula 01/07/24 23:31 Nasal Cannula 01/07/24 23:06 37.2 C 90 18 123/70 93 Nasal Cannula 01/07/24 21:42 86 O2 Flow Rate 01/08/24 07:54 2 01/08/24 07:46 2 01/08/24 07:07 01/08/24 03:40 2 01/07/24 23:31 2 01/07/24 23:06 2 01/07/24 21:42 Laboratory Results Laboratory Results - last 24 hr 01/08/24 05:46 WBC 6.41 RBC 3.81 L Hgb 12.2 L Hct 36.4 L MCV 95.5 MCH 32.0 MCHC 33.5 RDW Std Deviation 48.6 H RDW Coeff of Lisbeth 13.9 Plt Count 154 MPV 10.3 Immature Gran % (Auto) 0.6 Neut % (Auto) 43.8 Lymph % (Auto) 31.0 [place] % (Auto) 17.8 Eos % (Auto) 5.9 Baso % (Auto) 0.9 Neut # (Auto) 2.80 Lymph # (Auto) 1.99 [place] # (Auto) 1.14 H Eos # (Auto) 0.38 Baso # (Auto) 0.06 Immature Gran # (Auto) 0.04 Sodium 137 Potassium 4.5 Chloride 103 Carbon Dioxide 30 Anion Gap 4 BUN 37 H Creatinine 1.41 H D Est Cr Clr Drug Dosing 55.1 Est GFR ( Amer) 54.5 Est GFR (Non-Af Amer) 47.0 BUN/Creatinine Ratio 26.2 H Glucose 114 H Calcium 8.6 Phosphorus 2.8 Magnesium 1.9 Total Bilirubin 0.6 AST 41 H ALT 30 Alkaline Phosphatase 71 Total Protein 6.4 Albumin 3.4 Globulin 3.0 Albumin/Globulin Ratio 1.1 PG Care Time/CCT Total # of Minutes Spent Total Time Spent with Patient: Total time spent is greater than 50% in coordination of care (as documented) at patient's floor/unit and/or counseling patient: Coding Level of Care Code 54002 SUB INP/OBS CARE 3/50MIN Diagnoses ELISABETH (acute kidney injury) N17.9 Chronic kidney disease, stage 3 N18.3 Hypertension I10 Pulmonary embolism I26.99 Acute cor pulmonale presence: unspecified Chronicity: acute Pulmonary embolism type: unspecified Bilateral cellulitis of lower leg L03.116; L03.115 History of malignant melanoma Z85.820 Prostate nodule N40.2 (4) Pulmonary embolism Acute cor pulmonale presence: unspecified Chronicity: acute Pulmonary embolism type: unspecified Qualified Code(s): I26.99 - Other pulmonary embolism without acute cor pulmonale
[2024-01-08] MEDS: HEPARIN 100 UNIT/ML 5ML FLUSH FLUSH PRN (17:37)
--- NOTE | 2024-01-08 21:55 | Hospitalist Progress Note ---
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 But then noted desaturation placed back on O2. Currently on 01/07/24 on 2 L O2- will continue to weans as permitted. Decreased from 3 L yesterday. Regarding AC: Patient was on warfarin for over 10 years for history of a remote PE; he did also have weakly positive antiphospholipid antibodies in the past Follows with anticoagulation clinic and recent PT/INR have always been therapeutic ED physician spoke with anticoagulation clinic physician who recommends starting therapeutic Lovenox 120 Mg SQ every 12 hours as this could be considered a failure of Coumadin Heme/Onc Consulted; Recommendations appreciated- agree with continuing therapeutic Lovenox and treating as if Coumadin failure. Given his history of malignant melanoma with positive sentinel lymph node and currently on Keytruda, concern for recurrent malignancy. He did have a CT soft tissue of the neck in 11/2023 that did not show recurrence. He also had a CTA of the chest and CT abdomen/pelvis which did not show findings consistent with metastatic disease, however he did have a right renal lesion and a prostatic lesion. Per oncology recommendations will need repeat staging as an outpatient with a PET/CT scan to rule out recurrent disease as a possible etiology of failure of therapy. Appreciate hematology/oncology given his history of malignancy for further evaluation-appreciate consult-recommends PET scan full body as an outpatient in the near future to rule out recurrence of malignant melanoma PSA-3.4. Will need follow-up with urology for prostate lesion and right renal lesion- Prior hospitalist messaged the urology provider that he follows with to relay this information Continue Lovenox Possible discharge tomorrow as renal function is improving. (2) ELISABETH (acute kidney injury): Plan: ELISABETH on CKD -Of note received IV contrast during hospitalization- possibly 2/2 to contrast induced nephropathy -Holding Lisinopril/Hctz for now -Holding Potassium citrate (hx of renal stones) for now - renal: Negative for obstruction/ hydronephrosis -Urine studies repeated: reviewed -Urine output was decreased on 01/04 now improving again -Cr now improving -Likely contrast induced nephropathy -Continue to closely monitor urine ouput -Monitor serial Bladder scans -Avoid nephrotoxic agents -Nephrology following: Recommendations appreciated (3) Cellulitis: Plan: -Bilateral lower extremity swelling, erythema right leg greater than left leg that began on Sunday 12/31. He had chills at home and fatigue, generalized weakness likely related to infection -Infectious process appears more so in the Right lower extremity. Left lower extremity appears more chronic venous stasis changes No leukocytosis or fevers here. CRP and ESR are minimally elevated -Continue ceftriaxone as erythema is improving -Was given 1 dose of Lasix 40 Mg IV on admission- will hold further dosing of Lasix for now given ELISABETH (see above) -Recommend elevation of legs when possible -Follow clinically: improving- may consider transition to po abx in the next 24 hours -Follow CBC, BMP may consider lasix to help with lower extremity swelling now that cellulitis is improving. (4) History of malignant melanoma: Plan: -As noted above, on Keytruda -Heme-onc following -Plan for PET scan within the next few weeks after discharge -He was to have his final infusion of Keytruda in February to complete 1 year long treatment -Appreciate oncology input (5) Hypomagnesemia: Plan: -S/p Replete with IV magnesium on 01/04/24 -Continue to monitor level (6) Hypertension: Plan: -Blood pressures are low normal -Will continue hold lisinopril/HCTZ given ELISABETH on CKD (7) Chronic kidney disease, stage III (moderate): Plan: -Baseline of 1.2-1.3. See above ELISABETH assesmen -Now with ELISABETH on CKD -Nephrology consulted; See above -Holding home lisinopril HCTZ -Follow BMP -Avoid nephrotoxins (8) Trigeminal neuralgia: Plan: -Continue Lyrica Plan Morbid obesity with BMI 41.2-needs weight loss Disposition: Needs continued weaning of O2 and improvement in cellulitis as well as improvement of renal function. Prior hospitalist prescribed the Lovenox to his pharmacy and the cost will be $50 per month. Conditional code VTE PPx: Lovenox 1mg/kg BID Admission and Anticipated Discharge Date Admission Date: January 03, 2024 Subjective 78 yo male reports no new symptoms. Review of Systems Review of Systems: All systems reviewed & are unremarkable except as noted in HPI & below Physical Exam Physical Exam: General: no acute distress; non-toxic appearing; well-nourished; HEENT: normocephalic, atraumatic; Neck: supple; no lymphadenopathy; trachea midline Lungs: no acute respiratory distress; symmetrical chest wall expansion; clear breath sounds across all lung kan w/o adventitious sounds; no wheezing ABD: Soft, NTP; BS present; Neuro: A&Ox3; normal mood and affect; fluent speech; no focal deficits; sensation grossly intact and symmetric in the LEs b/l Results & Data Results & Data Vital Signs (Past 12 Hours) Vital Signs Temp Pulse Pulse Resp BP Pulse Ox O2 Del Method 01/08/24 19:39 36.7 C 96 H 18 129/70 97 Nasal Cannula 01/08/24 15:49 36.7 C 103 H 20 156/74 H 92 Room Air 01/08/24 14:25 89 01/08/24 11:45 36.4 C L 94 H 20 124/73 96 Nasal Cannula O2 Flow Rate 01/08/24 19:39 2 01/08/24 15:49 01/08/24 14:25 01/08/24 11:45 2 PG Care Time/CCT Total # of Minutes Spent Total Time Spent with Patient: Total time spent is greater than 50% in coordination of care (as documented) at patient's floor/unit and/or counseling patient: Coding Level of Care Code 54390 SUB INP/OBS CARE 2/35MIN Diagnoses Pulmonary embolism I26.99 ELISABETH (acute kidney injury) N17.9 Cellulitis L03.90 History of malignant melanoma Z85.820 Hypomagnesemia E83.42 Hypertension I10 Chronic kidney disease, stage III (moderate) N18.3 Trigeminal neuralgia G50.0
[2024-01-09 08:25] VITALS: RESP 18
--- NOTE | 2024-01-09 08:44 | Nephrology Progress Note ---
Date of Service January 09, 2024 Assessment & Plan (1) ELISABETH (acute kidney injury): Plan: * ELISABETH due to contrast-induced nephropathy - resolved * Creatinine now 1.3. Electrolyte balance is acceptable * Patient remains on O2 at 1 L/min NC and has trace LE edema. OK to provide gentle diuresis and attempt net 1L removal/day * Hold K citrate, lisinopril + HCTZ. These can be restarted as outpatient if needed * Monitor daily BMP * In preparation for discharge I have asked my space officer staff to schedule a hospital follow up visit in my office within next 2 weeks. Orders have been entered into EMR for nonfasting blood work to be completed 2 days prior to OV (2) Chronic kidney disease, stage 3: Plan: * CKD stage G3/A1. Baseline creatinine 1.3 mg/dL. 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 Now transitioned to Lovenox * Will require close oncology follow-up after hospitalization (5) Bilateral cellulitis of lower leg: Plan: * Cellulitis resolved * Remains on ceftriaxone. (6) History of malignant melanoma: Plan: * Maintained on pembrolizumab. Recent imaging and oncologic consultation reviewed. No obvious evidence of progression of based on current imaging. Outpatient restaging with PET/CT and MRI brain has been recommended. (7) Prostate nodule: Plan: * PSA 3.4. Urology follow up has been recommended. Follows with Dr. Rosas. Admission and Anticipated Discharge Date Admission Date: January 03, 2024 Subjective Mr. Maldonado was evaluated in his hospital room this morning. He was seated in a chair breathing comfortably on O2 at 1 L/min nasal cannula. He denied fever, flank pain, hematuria or difficulty voiding. He is net +240 cc since admission Review of Systems Constitutional: no fever Eyes: no problem reported Ear, Nose, Mouth, Throat: no problem reported Respiratory: no cough and no dyspnea Cardiovascular: no chest pain Gastrointestinal: no abdominal pain, no nausea, no vomiting and no diarrhea/loose stools Genitourinary: no dysuria, no hematuria or no flank pain Integumentary: no rash Physical Exam Constitutional: not in distress Eyes: PERRL, conjunctivae normal, anicteric sclerae ENMT: external ear and nose normal, oropharynx normal Neck: trachea midline, no thyromegaly Respiratory: normal respiratory effort, lungs clear to auscultation Cardiovascular: Rate/Rhythm: regular rate and regular rhythm Extremities: + edema (Trace pretibial) Gastrointestinal (Abdomen): normal bowel sounds, soft, nontender, no hepatosplenomegaly Skin: no rashes, warm and dry Neurologic: Speech / Cognition: normal speech and normal cognition Results & Data Vital Signs (Past 12 Hours) Vital Signs Temp Pulse Pulse Resp BP Pulse Ox O2 Del Method 01/09/24 08:24 36.8 C 79 18 125/70 93 Nasal Cannula 01/09/24 07:20 Nasal Cannula 01/09/24 07:15 79 01/09/24 02:19 37.1 C 84 16 120/68 93 Nasal Cannula 01/09/24 00:00 91 H 01/08/24 22:50 37 C 91 H 18 167/66 H 94 Nasal Cannula O2 Flow Rate 01/09/24 08:24 1 01/09/24 07:20 2 01/09/24 07:15 01/09/24 02:19 2 01/09/24 00:00 01/08/24 22:50 2 Laboratory Results Laboratory Results - last 24 hr 01/06/24 01/09/24 06:15 09:08 WBC 5.35 RBC 3.88 L Hgb 12.4 L Hct 37.6 L MCV 96.9 MCH 32.0 MCHC 33.0 RDW Std Deviation 49.7 H RDW Coeff of Lisbeth 14.3 Plt Count 159 MPV 10.3 Sodium 137 Potassium 4.2 Chloride 102 Carbon Dioxide 29 Anion Gap 6 BUN 31 H Creatinine 1.30 Est Cr Clr Drug Dosing 60.0 Est GFR ( Amer) 60.1 Est GFR (Non-Af Amer) 51.9 BUN/Creatinine Ratio 23.8 H Glucose 150 H Calcium 9.1 B-Natriuretic Peptide Pending Ur Random Urea Nitrogn 278 PG Care Time/CCT Total # of Minutes Spent Total Time Spent with Patient: Total time spent is greater than 50% in coordination of care (as documented) at patient's floor/unit and/or counseling patient: Coding Level of Care Code 25128 SUB INP/OBS CARE 3/50MIN Diagnoses ELISABETH (acute kidney injury) N17.9 Chronic kidney disease, stage 3 N18.3 Hypertension I10 Pulmonary embolism I26.99 Acute cor pulmonale presence: unspecified Chronicity: acute Pulmonary embolism type: unspecified Bilateral cellulitis of lower leg L03.116; L03.115 History of malignant melanoma Z85.820 Prostate nodule N40.2 (4) Pulmonary embolism Acute cor pulmonale presence: unspecified Chronicity: acute Pulmonary embolism type: unspecified Qualified Code(s): I26.99 - Other pulmonary embolism without acute cor pulmonale
[2024-01-09 09:02] LABS: Urea Nitrogen, Random Urine 278 mg/dL
[2024-01-09 09:50] LABS: Hematocrit (blood only) 37.6 % (42.0-52.0); Hemoglobin 12.4 g/dl (14.0-18.0); Mean Corpuscular Volume 96.9 fL (80.0-100.0); Mean Platelet Volume 10.3 fL (9.4-12.4); Platelet Count 159 K/uL (130-400); RDW Coefficient of Variation 14.3 % (11.5-14.5); RDW Standard Deviation 49.7 fL (36.4-46.3); Red Blood Count 3.88 M/uL (4.70-6.10); White Blood Count 5.35 K/ul (4.8-10.8)
[2024-01-09 10:07] LABS: BUN Creatinine Ratio 23.8 (10-20); Calcium 9.1 mg/dl (8.6-10.3); Est GFR (African American) 60.1 ml/min; Est GFR (Non-African American) 51.9 ml/min; Potassium 4.2 mmol/L (3.5-5.1)
[2024-01-09] MEDS: FUROSEMIDE 40 MG/4 ML VIAL IV ONE (11:07)
[2024-01-09 11:10] VITALS: O2SAT 91
[2024-01-09 11:37] VITALS: TEMP 97.7
[2024-01-09 14:26] VITALS: BP 98/57
[2024-01-09 14:41] VITALS: PULSE 84
--- NOTE | 2024-01-12 12:00 | Discharge Summary ---
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 But then noted desaturation placed back on O2. Currently on 01/07/24 on 2 L O2- will continue to weans as permitted. Decreased from 3 L yesterday. Regarding AC: Patient was on warfarin for over 10 years for history of a remote PE; he did also have weakly positive antiphospholipid antibodies in the past Follows with anticoagulation clinic and recent PT/INR have always been therapeutic ED physician spoke with anticoagulation clinic physician who recommends starting therapeutic Lovenox 120 Mg SQ every 12 hours as this could be considered a failure of Coumadin Heme/Onc Consulted; Recommendations appreciated- agree with continuing therapeut ic Lovenox and treating as if Coumadin failure. Given his history of malignant melanoma with positive sentinel lymph node and currently on Keytruda, concern for recurrent malignancy. He did have a CT soft tissue of the neck in 11/2023 that did not show recurrence. He also had a CTA of the chest and CT abdomen/pelvis which did not show findings consistent with metastatic disease, however he did have a right renal lesion and a prostatic lesion. Per oncology recommendations will need repeat staging as an outpatient with a PET/CT scan to rule out recurrent disease as a possible etiology of failure of therapy. Appreciate hematology/oncology given his history of malignancy for further evaluation-appreciate consult-recommends PET scan full body as an outpatient in the near future to rule out recurrence of malignant melanoma PSA-3.4. Will need follow-up with urology for prostate lesion and right renal lesion- Prior hospitalist messaged the urology provider that he follows with to relay this information Continue Lovenox discharged as renal function improved. (2) ELISABETH (acute kidney injury): ELISABETH on CKD -Of note received IV contrast during hospitalization- possibly 2/2 to contrast induced nephropathy -Holding Lisinopril/Hctz for now -Holding Potassium citrate (hx of renal stones) for now - renal: Negative for obstruction/ hydronephrosis -Urine studies repeated: reviewed -Urine output was decreased on 01/04 now improving again -Cr now improving -Likely contrast induced nephropathy -Continue to closely monitor urine ouput -Monitor serial Bladder scans -Avoid nephrotoxic agents -Nephrology following: Recommendations appreciated (3) Cellulitis: -Bilateral lower extremity swelling, erythema right leg greater than left leg that began on Sunday 12/31. He had chills at home and fatigue, generalized weakness likely related to infection -Infectious process appears more so in the Right lower extremity. Left lower extremity appears more chronic venous stasis changes No leukocytosis or fevers here. CRP and ESR are minimally elevated -Treated with 6 days of ceftriaxone; as erythema is improving will transiiton to keflex. -Patient given lasix in AM. (4) History of malignant melanoma: -As noted above, on Keytruda -Heme-onc following -Plan for PET scan within the next few weeks after discharge -He was to have his final infusion of Keytruda in February to complete 1 year long treatment -Appreciate oncology input (5) Hypomagnesemia: -S/p Replete with IV magnesium on 01/04/24 -Continue to monitor level (6) Hypertension: -Blood pressures are low normal -Will continue hold lisinopril/HCTZ given ELISABETH on CKD (7) Chronic kidney disease, stage III (moderate): -Baseline of 1.2-1.3. See above ELISABETH assesmen -Now with ELISABETH on CKD -Nephrology consulted; See above -Holding home lisinopril HCTZ -Follow BMP -Avoid nephrotoxins (8) Trigeminal neuralgia: -Continue Lyrica Plan Morbid obesity with BMI 41.2-needs weight loss Admission HPI Per Admitting Provider Tio is a 78-year-old male with PMH of pulmonary embolism (on warfarin), aortic aneurysm, CKD stage III, trigeminal neuralgia, HTN, and hypercholesterolemia. He presented at the behest of his PCP on 01/02 after saenz ving a chest CT performed outpatient with concern for new PE. Patient is currently on warfarin for history of a pulmonary embolism. He reports new dyspnea on exertion that started yesterday. He is unsure when this started yesterday. He denies SOB at rest. He is unable to lay flat on his back due to lower back pain. No supplemental oxygen at home or CPAP at night. Patient reports that his legs began to swell and become erythematous on Sunday 12/31. No prior history of cellulitis. Patient is unsure if he had erythema and swelling in his legs prior to his last pulmonary embolism. He is unsure when his last pulmonary embolism was. He he denies family history of PE, bleeding disorders. No history of GI bleeds. Patient did not take any of his regular morning medications today; he replies good compliance with taking his Coumadin which she takes at nighttime. He follows with Dr. Corado at the anticoagulation clinic outpatient; last seen on 12/31 with a PT/INR at 2.6. ED Course: Ceftriaxone 2000mg IV Lasix 40mg IV ROS: Patient endorses cold intolerance, ALVAREZ, lightheadedness, dizziness, feeling off balance, headache, abdominal tenderness/bloating, loose bowel, and new onset of redness and swelling in the lower legs bilaterally. Patient denies fever, chills, night sweats, cough, chest pain, SOB at rest, pleuritic CP, hemoptysis, N/V/D, melena, blood in urine or stool, or n umbness/tingling in the arms or legs. Discharge Exam General: no acute distress; non-toxic appearing; well-nourished; HEENT: normocephalic, atraumatic; Neck: supple; no lymphadenopathy; trachea midline Lungs: no acute respiratory distress; symmetrical chest wall expansion; clear breath sounds across all lung kan w/o adventitious sounds; no wheezing ABD: Soft, NTP; BS present; Neuro: A&Ox3; normal mood and affect; fluent speech; no focal deficits; sensation grossly intact and symmetric in the LEs b/l ext: decreased edema. Updated Medication List Medication Instructions Recorded Confirmed Type lisinopril 10 1 tab PO QAM #0 tabs 08/31/12 01/11/24 History mg-hydrochlorothiazide 12.5 mg tablet pravastatin 20 mg tablet 20 mg PO HS ##0 02/28/16 01/11/24 History allopurinol 100 mg tablet 100 mg PO BID 90 days #180 tabs 12/22/21 01/11/24 Rx acetaminophen 500 mg tablet 1,000 mg PO Q8 PRN Pain 10/28/22 01/11/24 History (Tylenol Extra Strength) polyethylene glycol 3350 17 17 g PO DAILY PRN Constipation 01/06/23 01/11/24 History gram/dose oral powder (Miralax) pregabalin 150 mg capsule (Lyrica) 300 mg (2 x 150 mg) PO BID #360 08/16/23 01/11/24 Rx caps fluorometholone 0.1 % eye 1 drp OPB DAILY PRN Eye 01/03/24 01/11/24 History drops,suspension Inflammation enoxaparin 120 mg/0.8 mL 120 mg (0.8 mL) subcut Q12H 30 01/04/24 01/11/24 Rx subcutaneous syringe (Lovenox) days #48 mL cephalexin 500 mg capsule 500 mg PO Q6H 3 days #12 caps 01/09/24 01/11/24 Rx furosemide 40 mg tablet (Lasix) 40 mg PO DAILY PRN Edema #30 tabs 01/09/24 01/11/24 Rx potassium citrate 10 mEq (1,080 10 meq PO BID 01/11/24 01/11/24 History mg) tablet,extended release Hospital Stay Data Consultations 01/03/24 18:28 ED Decision to Admit Stat 01/04/24 08:35 Consult Oncology Routine 01/05/24 08:14 Consult Nephrology Routine Diagnostic Imagining Performed 01/03/24 19:51 US venous doppler LE BI Urgent 01/05/24 15:35 US renal/blad retro comp Urgent Pending Results Patient Have Any Pending Studies at Discharge: No Discharge Instructions Given to Patient (Per Discharging Provider) recommends PET scan full body as an outpatient in the near future to rule out recurrence of malignant melanoma follow-up with urology for prostate lesion and right renal lesion FOllowup with PCP in 1-2 weeks. Continue antibiotics for 3 more days. Total Time Total Time Spent Total Time Spent (In Minutes): 32 Coding Level of Care Code 54271 INP/OBS DISCH >30 MIN Diagnoses Pulmonary embolism I26.99 ELISABETH (acute kidney injury) N17.9 Cellulitis L03.90 History of malignant melanoma Z85.820 Hypomagnesemia E83.42 Hypertension I10 Chronic kidney disease, stage III (moderate) N18.3 Trigeminal neuralgia G50.0
== END 2024-01-09 15:18 | disposition home or self-care (01) | DRG 176 ==
LOC: ED 17:27 → EDINP 19:32 → SUATTDRO 19:32 → 2N 22:11

== ENCOUNTER 2024-01-11 10:34 | Inpatient (IN) ==
--- NOTE | 2024-01-11 11:02 | Emergency Department Note ---
Impression & Plan Bilateral leg edema, Bilateral cellulitis of lower leg, Hypomagnesemia, Vomiting ED Provider Note HISTORY OF PRESENT ILLNESS: Patient is a 78-year-old male presenting with bilateral lower extremity edema. Patient was at his primary care provider's office today and was referred to the emergency department given his progressively worsening swelling of his legs. Patient is on Lasix 40 mg daily, and reports that he last took his medication yesterday. He has a history of PE and is currently on lovenox. Patient denies any chest pain or significant shortness of breath. Denies any abdominal pain. I did call and speak with patient's PCP via the phone and they expressed that they sent the patient to the emergency department due to his inability to tolerate oral intake. Patient had disclosed to the primary doctor that he has not been tolerating his oral antibiotics for treatment of his lower extremity cellulitis secondary to multiple episodes of vomiting. He reportedly has not had antibiotics in over 24 hours. They also are concerned that he needs further diuresis given his lower extremity edema. ROS: as above PHYSICAL EXAM: Constitutional: Patient appears in no acute distress. HENT: Head: Normocephalic and atraumatic. Eyes: EOMI, PERRL Mouth/Throat: Mucous membranes moist. Neck: Trachea midline. Neck supple. Cardiovascular: RRR, No murmurs, rubs or gallops. Intact distal pulses. Pulmonary/Chest: No respiratory distress. Breath sounds clear and equal bilaterally. No wheezes or rales. Abdominal: Abdomen soft, no tenderness, rebound or guarding. Musculoskeletal: No tenderness or deformity noted. +2 pitting edema of bilateral lower extremities extending to knee. Erythema to anterior shins bilaterally. Skin: Warm and dry. No rash, erythema, pallor or cyanosis Psychiatric: Appropriate mood and affect for situation. Neurological: Alert and keenly responsive. CN II-XII grossly intact, moving all extremities equally and fully. MDM: - Vitals signs showed hypertension and tachycardia. - History obtained via patient. History as above. - Chronic conditions affecting care: HTN; PE; HLD; CKD; malignant melanoma - Differential diagnoses include, but are not limited to: CHF exacerbation; cellulitis; DVT; bowel obstruction; viral infection; ACS - Order placed for continuous cardiac monitoring. At this time, monitor showed rate of 98 bpm with normal sinus rhythm, per my interpretation. - External medical records reviewed. I called and spoke with patient's PCP, Dr. Pearl, at 13:13. Patient presented for hospital follow up. Patient presented to clinic with nausea and poor PO intake. Reportedly has been vomiting every time he eats, and is not tolerating is PO antibiotics secondary to vomiting. Also was complaining of lower extremity swelling worsening. Concerned about increasing lasix dose, as patient "might have hypotension." - EKG interpreted by myself showed normal sinus rhythm. Rate 99 bpm. QT 370. No acute ischemic changes. - Laboratory workup interpreted by myself showed normal WBC; normal PT/INR; stable electrolytes other than hypomagnesemia (Mg 1.5); normal troponin; normal BNP - VBG normal - CXR negative for pulmonary edema, per my interpretation - CT abdomen/pelvis with IV contrast negative for acute pathology. - Patient given 1g IV magnesium for electrolyte replacement. Patient given 40 mg IV lasix for further diuresis. - Patient did have an episode of desaturation in the emergency department and was placed on 0.5L nasal cannula. - Patient reports that he has been unable to tolerate oral intake in the last 48 hours and has missed multiple doses of his antibiotic. - Discussion was had with case repairer about patient's case and need for admission - Hospitalist consulted for admission - [facility] ASSESSMENT AND PLAN: Diagnosis: Bilateral lower extremity edema; bilateral lower extremity cellulitis; hypomagnesemia; vomiting Plan: admit Past Med/Surg History Problem List (Updated 01/11/24 @ 14:11 by Tiffanie Escamilla MD) Vomiting (Acute) Hypomagnesemia (Acute) Bilateral cellulitis of lower leg (Acute) Bilateral leg edema (Acute) Prostate nodule ELISABETH (acute kidney injury) Hypomagnesemia Bilateral cellulitis of lower leg (Acute) Leg swelling (Acute) ALVAREZ (dyspnea on exertion) (Acute) Pulmonary embolism (Acute) Cellulitis Incontinence Port-A-Cath in place (01/24/23) Infusaport Insertion to right internal jugular with Fluoroscopy(Right) - Vamsi Tolbert, Allergic reaction (Acute) Pulmonary embolism Trigeminal neuralgia (Acute) Trigeminal neuralgia (Acute) Vitamin D deficiency (Acute) Hypertension (Acute) Chronic kidney disease, stage 3 (Acute) Vitamin D deficiency (Chronic) Prostate cancer screening Thoracic ascending aortic aneurysm COVID-19 (Acute) Gastritis Insomnia Encounter for pre-operative examination Primary osteoarthritis, left shoulder Low back pain with sciatica (Acute) History of pulmonary embolism 2016, unknown etiology Constipated assisted (current) use of anticoagulants (Chronic) History of malignant melanoma Left side of neck Aortic aneurysm CT 12/2022- "Aneurysmal dilatation of the ascending thoracic aorta measuring up to 4.6 cm in diameter. This is similar to the prior studies." Follows with Dr. Marshall Hypercholesterolemia (Acute) Stone in kidney Hx Hypertension (Chronic) Chronic kidney disease, stage III (moderate) (Chronic) Trigeminal neuralgia (Acute) s/p radiated nerve, No issues x several years Medical History Osteoarthritis Surgical History History of left shoulder replacement History of right shoulder replacement History of total left knee replacement (TKR) History of total right knee replacement (TKR) with revision History of colonoscopy History of inguinal hernia repair History of cancer surgery Left side of neck resection + lymph node removal History of tooth extraction History of tonsillectomy and adenoidectomy History of sinus surgery History of cystoscopy History of cataract surgery bilateral History of back surgery L4-L5 with screws Family History Family/Other Diabetes Heart disease Nephrolithiasis Other No family history of adverse response to anesthesia Social History Smoking Status: Never smoker Second Hand Exposure: No; Do You Dip or Chew Tobacco: No; Hx Alcohol Use: No Hx Substance Use: No Preferred Language: Andorran Communication Ability: Effective Knockout Machine Operator Required: No Beliefs That Will Affect Care: None Current Living Situation: Spouse current occupational status: retired Feels Safe at Home: Yes Seatbelt Use: always Assistive Devices: Brace/Splint/Immobilizer and Cane Allergies Allergies Allergy/AdvReac Type Severity Reaction Status Date / Time gabapentin Allergy Intermediate Rash Verified 01/03/24 19:37 tramadol Allergy Intermediate Rash and Verified 01/03/24 19:37 itchiness hydrocodone Allergy Mild itchy Verified 01/03/24 19:37 oxycodone Allergy Mild itchy Verified 01/03/24 19:37 carbamazepine Allergy Unknown Unknown Verified 01/03/24 19:37 ciprofloxacin Allergy Unknown Unknown Verified 01/03/24 19:37 Home Meds Home Medications Medication Instructions Recorded Confirmed lisinopril 10 1 tab PO QAM #0 tabs 08/31/12 01/03/24 mg-hydrochlorothiazide 12.5 mg tablet pravastatin 20 mg tablet 20 mg PO HS ##0 02/28/16 01/03/24 acetaminophen 500 mg tablet 1,000 mg PO Q8 PRN Pain 10/28/22 01/03/24 (Tylenol Extra Strength) polyethylene glycol 3350 17 17 g PO DAILY PRN Constipation 01/06/23 01/03/24 gram/dose oral powder (Miralax) [id number] 300 mcg-K 60 1 tab PO 2XWK 06/02/23 01/03/24 mcg-lycop 600 mcg-lutein 300 mcg tablet (Centrum Silver Men) fluorometholone 0.1 % eye 1 drp OPB DAILY 01/03/24 01/03/24 drops,suspension Previous Rx's Medication Instructions Recorded allopurinol 100 mg tablet 100 mg PO BID 90 days #180 tabs 12/22/21 pregabalin 150 mg capsule (Lyrica) 300 mg (2 x 150 mg) PO BID #360 08/16/23 caps enoxaparin 120 mg/0.8 mL 120 mg (0.8 mL) subcut Q12H 30 01/04/24 subcutaneous syringe (Lovenox) days #48 mL cephalexin 500 mg capsule 500 mg PO Q6H 3 days #12 caps 01/09/24 furosemide 40 mg tablet (Lasix) 40 mg PO DAILY PRN Edema #30 tabs 01/09/24 potassium citrate 10 mEq (1,080 10 meq PO DAILY PRN on days you 01/09/24 mg) tablet,extended release take lasix #30 tabs Results & Data (ED) Vital Signs Vital Signs - 24 hr 01/11/24 10:36 01/11/24 11:17 01/11/24 12:22 Temperature 36.5 C Temperature Source Temporal Artery Scan Pulse Rate 92 H 96 H 94 H Pulse Rate [Apical] Pulse Rhythm Regular Pulse Rhythm [Apical] Pulse Strength [Apical] Respiratory Rate 20 20 Respiratory Effort / Characteristics Non-Labored Spontaneous Respiratory Depth Normal Respiratory Pattern Blood Pressure 147/69 H Blood Pressure [Right Arm] Blood Pressure Mean 95 Blood Pressure Mean [Right Arm] Blood Pressure Position [Right Arm] Pulse Oximetry 94 91 Oxygen Delivery Method Room Air Room Air Sepsis Recent Fever Within 48 Hours No Sepsis New/Unexplained Change in Mental Status No Sepsis Action Taken by Nursing No Action Required 01/11/24 13:08 Temperature Temperature Source Pulse Rate Pulse Rate [Apical] 97 H Pulse Rhythm Pulse Rhythm [Apical] Regular Pulse Strength [Apical] Normal Respiratory Rate 18 Respiratory Effort / Characteristics Non-Labored Spontaneous Respiratory Depth Normal Respiratory Pattern Regular Blood Pressure Blood Pressure [Right Arm] 121/61 Blood Pressure Mean Blood Pressure Mean [Right Arm] 81 Blood Pressure Position [Right Arm] Lying Pulse Oximetry 91 Oxygen Delivery Method Room Air Sepsis Recent Fever Within 48 Hours Sepsis New/Unexplained Change in Mental Status Sepsis Action Taken by Nursing Laboratory Data 01/11/24 11:05 01/11/24 11:05 Lab Results 01/11/24 Range/Units 11:05 WBC 6.99 (4.8-10.8) K/ul RBC 3.89 L (4.70-6.10) M/uL Hgb 12.7 L (14.0-18.0) g/dl Hct 37.6 L (42.0-52.0) % MCV 96.7 (80.0-100.0) fL MCH 32.6 (25.0-34.0) pg MCHC 33.8 (32.0-36.0) g/dL RDW Std Deviation 48.8 H (36.4-46.3) fL RDW Coeff of Lisbeth 14.1 (11.5-14.5) % Plt Count 160 (130-400) K/uL MPV 9.8 (9.4-12.4) fL Immature Gran % (Auto) 0.3 % Neut % (Auto) 49.9 % Lymph % (Auto) 30.6 % [place] % (Auto) 13.6 % Eos % (Auto) 4.7 % Baso % (Auto) 0.9 % Neut # (Auto) 3.49 (1.40-6.50) K/uL Lymph # (Auto) 2.14 (1.20-3.40) K/uL [place] # (Auto) 0.95 H (0.11-0.59) K/uL Eos # (Auto) 0.33 (0.00-0.50) K/uL Baso # (Auto) 0.06 (0.00-0.20) K/uL Immature Gran # (Auto) 0.02 (0.01-0.20) K/uL PT 11.4 (9.0-12.0) Seconds INR 1.1 (0.9-1.1) VBG pH 7.37 (7.36-7.41) VBG pCO2 48 (38-50) mmHg VBG pO2 32 mmHg VBG HCO3 28 mmol/L VBG O2 Saturation 65.6 % VBG Base Excess 1.7 mEq/L Sodium 136 (136-145) mmol/L Potassium 3.7 (3.5-5.1) mmol/L Chloride 100 (98-107) mmol/L Carbon Dioxide 28 (21-32) mmol/L Anion Gap 8 (3-11) BUN 25 H (6-23) mg/dl Creatinine 1.24 (0.6-1.4) mg/dl Est Cr Clr Drug Dosing 63.0 ml/min Est GFR ( Amer) 63.7 ml/min Est GFR (Non-Af Amer) 54.9 ml/min BUN/Creatinine Ratio 20.2 H (10-20) Glucose 111 H (70-99(Fasting)) mg/dl Calcium 9.4 (8.6-10.3) mg/dl Magnesium 1.5 L (1.7-2.4) mg/dl Total Bilirubin 1.0 (0.2-1.0) mg/dl AST 49 H (13-39) U/L ALT 28 (7-52) U/L Alkaline Phosphatase 75 (34-104) U/L Troponin I High Sens 6.3 (0-20) pg/ml B-Natriuretic Peptide 24 (0-100) pg/ml Total Protein 6.7 (6.0-8.3) gm/dl Albumin 3.5 (3.4-5.0) gm/dl Globulin 3.2 (2.5-4.0) gm/dl Albumin/Globulin Ratio 1.1 (0.9-2) Administered Medications Discontinued Medications Furosemide (Furosemide 40 Mg/4 Ml Vial) 40 mg IV ONE ONE Stop: 01/11/24 13:20 Last Admin: 01/11/24 13:47 Dose: 40 mg Documented By: SNS Magnesium Sulfate/Dextrose (Magnesium Sulfate / D5w) 1 gm in 100 mls @ 100 mls/hr IV NOW STA Stop: 01/11/24 14:18 Last Admin: 01/11/24 13:48 Dose: 100 mls/hr Documented By: ABDIAS Ioversol (Optiray 320 100ml) 94 ml IV ONCE ONE Stop: 01/11/24 13:37 Last Admin: 01/11/24 13:40 Dose: 94 ml Documented By: PLW Imaging Data Radiologist's Impression: Chest X-Ray 01/11/24 10:48 XR chest 1V portable CLINICAL HISTORY: LE edema; hx of CHF TECHNIQUE: Single frontal radiograph of the chest was obtained. Comparison: Comparison is made to chest radiograph 04/25/2023 FINDINGS: A port catheter is seen. Bilateral shoulder arthroplasties. Cardiomegaly is noted. The lungs are clear. No evidence of pleural effusion or pneumothorax. IMPRESSION: No acute chest disease. Cardiomegaly is noted. ACT 112: Negative or not required by law. Electronically signed by: Robert Gerber M.D. 01/11/2024 11:17 AM Abdomen/Pelvis CT 01/11/24 13:16 CT abd pelvis IV con only CLINICAL HISTORY: vomiting TECHNIQUE: Helical axial images of the abdomen and pelvis were obtained and displayed. Automated dose lowering techniques and/or adjustment according to patient size were utilized for this exam. This exam was performed with intravenous contrast. CT DOSE: 1479.25 mGy.cm COMPARISON: Comparison is made to CT abdomen pelvis 01/03/2024 and renal ultrasound 01/05/2024 FINDINGS: Lower chest: Bibasilar atelectasis versus scarring is seen. Liver: Unremarkable. No focal lesions are seen. Gallbladder and biliary tree: No calcified gallstones. Normal caliber wall. No intra- or extrahepatic biliary ductal dilation. Pancreas: Unremarkable, no focal lesions. Spleen: Unremarkable. Adrenals: Unremarkable. Kidneys and ureters: Perinephric stranding is noted bilaterally. Right renal hypodensity is again seen. Bladder: Unremarkable. Reproductive organs: Unremarkable. Bowel: Diverticulosis is seen without diverticulitis. The appendix is normal. Lymph nodes Retroperitoneal: Unremarkable. Pelvic: Prominent bilateral external iliac lymph nodes are unchanged. Mesenteric: Unremarkable. Peritoneum: Normal. Vessels: Atherosclerotic calcifications are seen. No evidence of deep venous thrombus within the visualized venous system. Abdominal wall: A fat-containing umbilical hernia is seen. Fat-containing right inguinal hernia is seen. Bones: Degenerative changes in the visualized spine. Posterior fixation hardware spans L4-S1. IMPRESSION: 1. No acute abnormalities are seen to explain bilateral leg swelling. 2. Right renal hypodensity likely represents a cyst as seen on ultrasound. ACT 112: Negative or not required by law. Electronically signed by: Robert Gerber M.D. 01/11/2024 2:15 PM Discharge Plan Visit Data Chief Complaint: Referred by Doctor Stated Complaint: REF BY DOC ED Provider: Tiffanie Escamilla Discharge Problem: Bilateral leg edema, Bilateral cellulitis of lower leg, Hypomagnesemia, Vomiting Forms Stand Alone Forms: [employer] Prescriptions Prescriptions: No Action Centrum Silver Men [id number] mcg tablet 1 tab PO 2XWK acetaminophen [Tylenol Extra Strength] 500 mg tablet 1,000 mg PO Q8 PRN (Reason: Pain) lisinopril-hydrochlorothiazide 10-12.5 mg Tablet 1 tab PO QAM Qty: 0 Hold Instructions: Resume on 02/02/24. until restarted by nephrology or PCP. pravastatin 20 mg Tablet 20 mg PO HS Qty: 0 allopurinol 100 mg tablet 100 mg PO BID 90 Days Qty: 180 1RF pregabalin [Lyrica] 150 mg capsule 300 mg PO BID Qty: 360 1RF polyethylene glycol 3350 [Miralax] 17 gram/dose powder 17 g PO DAILY PRN (Reason: Constipation) fluorometholone 0.1 % drops,suspension 1 drp OPB DAILY enoxaparin [Lovenox] 120 mg/0.8 mL Syringe 120 mg subcut Q12H 30 Days Qty: 48 0RF cephalexin 500 mg capsule 500 mg PO Q6H 3 Days Qty: 12 0RF furosemide [Lasix] 40 mg Tablet 40 mg PO DAILY PRN (Reason: Edema) Qty: 30 0RF potassium citrate 10 mEq (1,080 mg) tablet extended release 10 meq PO DAILY PRN (Reason: on days you take lasix) Qty: 30 0RF Rx Instructions: TAKE 1 TABLET BY MOUTH TWICE DAILY Referrals Referrals: Stef Encarnacion MD [Primary Care Provider] -
--- NOTE | 2024-01-11 11:18 | XRay Report ---
XR chest 1V portable CLINICAL HISTORY: LE edema; hx of CHF TECHNIQUE: Single frontal radiograph of the chest was obtained. Comparison: Comparison is made to chest radiograph 04/25/2023 FINDINGS: A port catheter is seen. Bilateral shoulder arthroplasties. Cardiomegaly is noted. The lungs are kt r. No evidence of pleural effusion or pneumothorax. IMPRESSION: No acute chest disease. Cardiomegaly is noted. ACT 112: Negative or not required by law. Electronically signed by: Robert Gerber M.D. 01/11/2024 11:17 AM
[2024-01-11 11:24] LABS: Base Excess VBG 1.7 mEq/L; HCO3 VBG 28 mmol/L; Oxygen Saturation VBG 65.6 %; PCO2 VBG 48 mmHg (38-50); PO2 VBG 32 mmHg; pH VBG 7.37 (7.36-7.41)
[2024-01-11 11:29] LABS: Basophils # (auto) 0.06 K/uL (0.00-0.20); Basophils % (auto) 0.9 %; Eosinophils # (auto) 0.33 K/uL (0.00-0.50); Eosinophils % (auto) 4.7 %; Hematocrit (blood only) 37.6 % (42.0-52.0); Hemoglobin 12.7 g/dl (14.0-18.0); Immature Granulocytes # (auto) 0.02 K/uL (0.01-0.20); Immature Granulocytes % (auto) 0.3 %; Lymphocytes # (auto) 2.14 K/uL (1.20-3.40); Lymphocytes % (auto) 30.6 %; Mean Corpuscular Hemoglobin 32.6 pg (25.0-34.0); Mean Corpuscular Hgb Conc 33.8 g/dL (32.0-36.0); Mean Corpuscular Volume 96.7 fL (80.0-100.0); Mean Platelet Volume 9.8 fL (9.4-12.4); Monocytes # (auto) 0.95 K/uL (0.11-0.59); Monocytes % (auto) 13.6 %; Neutrophils # (auto) 3.49 K/uL (1.40-6.50); Neutrophils % (auto) 49.9 %; Platelet Count 160 K/uL (130-400); RDW Coefficient of Variation 14.1 % (11.5-14.5); RDW Standard Deviation 48.8 fL (36.4-46.3); Red Blood Count 3.89 M/uL (4.70-6.10); White Blood Count 6.99 K/ul (4.8-10.8)
[2024-01-11 11:45] LABS: Albumin Globulin Ratio 1.1 (0.9-2); Albumin Level 3.5 gm/dl (3.4-5.0); BUN Creatinine Ratio 20.2 (10-20); Calcium 9.4 mg/dl (8.6-10.3); Est GFR (African American) 63.7 ml/min; Est GFR (Non-African American) 54.9 ml/min; Globulin 3.2 gm/dl (2.5-4.0); Magnesium 1.5 mg/dl (1.7-2.4); Potassium 3.7 mmol/L (3.5-5.1); Total Protein 6.7 gm/dl (6.0-8.3)
[2024-01-11 11:51] LABS: Troponin I High Sensitivity 6.3 pg/ml (0-20)
[2024-01-11 11:55] LABS: INR 1.1 (0.9-1.1); Prothrombin Time 11.4 Seconds (9.0-12.0)
[2024-01-11] MEDS: OPTIRAY 320 100ml IV ONE (13:40)
[2024-01-11] MEDS: FUROSEMIDE 40 MG/4 ML VIAL IV ONE (13:47)
[2024-01-11] MEDS: MAGNESIUM SULFATE / D5W 1 GM/100 ML BAG IV STA (13:48)
--- NOTE | 2024-01-11 14:17 | CT Scan Report ---
CT abd pelvis IV con only CLINICAL HISTORY: vomiting TECHNIQUE: Helical axial images of the abdomen and pelvis were obtained and displayed. Automated dose lowering techniques and/or adjustment according to patient size were utilized for this exam. This e xam was performed with intravenous contrast. CT DOSE: 1479.25 mGy.cm COMPARISON: Comparison is made to CT abdomen pelvis 01/03/2024 and renal ultrasound 01/05/2024 FINDINGS: Lower chest: Bibasilar atelectasis versus scarring is seen. Liver: Unremarkable. No focal lesions are seen. Gallbladder and biliary tree: No calcified gallstones. Normal caliber wall. No intra- or extrahepatic biliary ductal dilation. Pancreas: Unremarkable, no focal lesions. Spleen: Unremarkable. Adrenals: Unremarkable. Kidneys and ureters: Perinephric stranding is noted bilaterally. Right renal hypodensity is again see n. Bladder: Unremarkable. Reproductive organs: Unremarkable. Bowel: Diverticulosis is seen without diverticulitis. The appendix is normal. Lymph nodes Retroperitoneal: Unremarkable. Pelvic: Prominent bilateral external iliac lymph nodes are unchanged. Mesenteric: Unremarkable. Peritoneum: Normal. Vessels: Atherosclerotic calcifications are seen. No evidence of deep venous thrombus within the visu alized venous system. Abdominal wall: A fat-containing umbilical hernia is seen. Fat-containing right inguinal hernia is se en. Bones: Degenerative changes in the visualized spine. Posterior fixation hardware spans L4-S1. IMPRESSION: 1. No acute abnormalities are seen to explain bilateral leg swelling. 2. Right renal hypodensity likely represents a cyst as seen on ultrasound. ACT 112: Negative or not required by law. Electronically signed by: Robert Gerber M.D. 01/11/2024 2:15 PM
--- OUTSIDE RECORDS SUMMARY | 2024-01-11 14:20 | External Medical Summary | Continuity of Care Document ---
Author Name Unknown Organization [address] [id number] Care Team Providers Care Business Strategist Name Role Phone ShashankStef casanova Primary Care Physician [phone] Encounter [facility] [id number] Date(s): 01/03/24 - 01/03/[address] [address] [phone] Encounter Diagnosis Chronic pulmonary embolism(Discharge Diagnosis) - 01/03/24 Hypotension(Discharge Diagnosis) - 01/03/24 Anti-cardiolipin antibody positive(Discharge Diagnosis) - 01/03/24 Malignant melanoma, stage IIIC(Discharge Diagnosis) - 01/03/24 Pain in abdomen on palpation(Discharge Diagnosis) - 01/03/24 Fatigue(Discharge Diagnosis) - 01/03/24 Discharge Disposition: Home or Self Care Attending Physician: JAMRAI Buchanan Tara Referring Physician: JAMARI Buchanan Tara Allergies, Adverse Reactions, Alerts Substance Criticality Severity Reaction Reaction Severity Status simvastatin 1 - muscle and joint pain Active gabapentin rash Active OxyContin rash Active oxyCODONE rash Active traMADol rash Active HYDROcodone rash Active TEGretol rash Active 1muscle and joint pain Assessment and Plan Extracted from: Title:Follow up Author:JAMARI Buchanan Tara Date: 1.Malignant melanoma, stag e IIIC 2.Chronic pulmonary embolism 3.Anti-cardiolipin antibody positive 4.Hypotension 5.Pain in abdomen on palpation 6.Fatigue Acute/Chronic: acute Goal:Resolution/ control Status:ongoing Data: records/pt report Plan: For approx a week pt has not been feeling well. Rundown. He had immunotherapy yesterday for his melanoma. His BP was low and they almost did not give him therapy. His bp did come up after his infusion. His cbc and cmpfrom 2 days ago was unremarkable. Tshwas nl.He had scans in November that did not show met dz. He is having mild SOB but no CP. EKG NSR. Nonspecific t wave changes and incomplete RBBB. No change from EKG last year. Reviewed by DR. Pearl who concurred. He has mild non pitting edema +1 in lower ext. Lungs are clear. He has mild abd pain and tenderness on palpation. Has diverticulosis. CT C/A/P ordered to evaluation for PE due to hx ofPE and SOB. Check for diverticulitis due to abd pain/tenderness and hx of diverticulosis. Will check cbc,cmp and pro-bnp. BP is better in office today. Recommend pushing fluids and eating regularly. time spent reviewing chart, face to face visit, ordersand documentation: 43 min Addendum by JAMARI Buchanan Tar a on January 03, 2024 16:59:26 EDT CTA showed chronic nonocclusive and partially calcified emboli are again noted within the right lower lobe segmental pulmonary arteries. There is an occluded subsegmental branch within the posterior basal right lower lobe pulmonary artery which is new compared to prior study. This could represent an acute pulmonary embolus. Stable 2 cm right anterior pleural-based nodule. Focal irregular density within the base of the right lower lobe is similar to the prior study and favoring scarring. This could be due to a chronic pulmonary infarct. No focal lung consolidations to suggest pneumonia CT scan of the abdomen and pelvis no acute intra-abdominal or intrapelvic abnormality. Unchanged iliac lymphadenopathy. 1.2 cm right renal lesion could be confirmed with a nonemergent follow-up renal ultrasound. Prostamegaly with possible prostate lesion which could be correlated with serum PSA. Chronic findings as above. Spoke to pt regarding his result. I have advised him to go to ER. He is in agreement. I called ER and spoke to charge nurse. Will also need to schedule a US of the kidney due to new lesion. Will send copy of ct to urology due to changes seen in prostate. Spent another 21 min in coordination of care. Addendum by JAMARI Buchanan Tar nga on January 03, 2024 17:03:03 EDT total time 43 and 21 min total=64 min Immunizations Given and Recorded Vaccine Date Status Refusal Reason influenza virus vaccine, inactivated 1 04/26/23 Gi jasmyn influenza virus vaccine, inactivated 02/24/23 Give n influenza virus vaccine, inactivated 03/08/22 Give n influenza virus vaccine, inactivated 02/26/21 Give n influenza virus vaccine, inactivated 03/11/20 Give n influenza virus vaccine, inactivated 03/28/19 Give n influenza virus vaccine, inactivated 05/02/17 Give n influenza virus vaccine, inactivated 03/16/16 Give n influenza virus vaccine, inactivated 03/02/15 Give n influenza virus vaccine, inactivated 04/07/14 Give n influenza virus vaccine, inactivated 03/18/13 Give n tetanus/diphtheria/pertuss, acel (Tdap) 02/03/20 G iven tetanus/diphtheria/pertuss, acel (Tdap) 11/04/09 R ecorded zoster vaccine, inactivated 12/04/19 Recorded pneumococcal 13-valent vaccine 03/02/15 Given zoster vaccine live 10/11/13 Recorded pneumococcal 23-valent vaccine 11/04/09 Recorded hepatitis B adult vaccine 11/23/99 Recorded hepatitis B adult vaccine 10/19/99 Recorded tetanus toxoids-diphtheria, Td (Adult) 10/19/99 Re corded 1Result Comment: charted in error Medications allopurinol 100 mg oral tablet Start: 12/11/23 11:21:00 AM EDT, 1 tab, PO, bid, Disp# 60 tab, Refills: 11, Pharmacy: [id number] Start Date: 12/11/23 Status: Ordered hydrochlorothiazide-lisinopril 12.5 mg-10 mg oral tablet Start: 09/04/23 4:57:00 PM EDT, 1 tab, PO, Daily, Disp# 90 tab, Refills: 3, Pharmacy: [id number] Start Date: 09/04/23 Status: Ordered Lyrica 150 mg oral capsule Start: 01/11/22 12:55:00 PM EDT, 1 cap, PO, tid, Disp# 90 cap, Refills: 0, Pharmacy: [id number] Start Date: 01/11/22 Status: Ordered MiraLax oral powder for reconstitution Start: 03/14/23 9:19:00 AM EDT, 17 g =, PO, Daily, PRN: constipation Start Date: 03/14/23 Status: Ordered Multi Vitamin+ Start: 07/13/22 1:31:00 PM EST, 1 tab, PO, Daily Start Date: 07/13/22 Status: Ordered multivitamin Start: 07/25/23 11:18:00 AM EST, 1 tab, PO, qMonThu Start Date: 07/25/23 Status: Ordered potassium citrate 10 mEq oral tablet, extended release Start: 04/19/22 12:49:00 PM EST, 1 tab, PO, bid, Disp# 180 tab, Refills: 3, 1 tab BID, Pharmacy: [id number] Start Date: 04/19/22 Status: Ordered pravastatin 20 mg oral tablet Start: 10/31/23 7:06:00 PM EDT, 1 tab, PO, Daily, Disp# 90 tab, Refills: 3, Pharmacy: [id number] Start Date: 10/31/23 Status: Ordered Systane Start: 02/13/23 4:17:00 PM EDT, as needed dry eyes Start Date: 02/13/23 Status: Ordered Tylenol 500 mg oral tablet Start: 03/30/23 4:02:00 PM EDT, 2 tab, PO, tid Start Date: 03/30/23 Status: Ordered warfarin 5 mg oral tablet Start: 07/22/20 10:39:00 AM EST, 1 tab, PO, Daily, Disp# 30 tab, adjusted by [facility] based on INR, other Start Date: 07/22/20 Status: Ordered Mental Status 01/03/24 Barriers to Learning one year None evide nt Mandatory Health Literacy Documentation Yes Health Literacy Communication Barriers N ever Primary Language Romansh Problem List Condition Confirmation Course Effective Dates Status H ealth Status Informant AA (aortic aneurysm) 1, 2, 3 Confirmed Active Anti-cardiolipin antibody positive Confirmed Active Chronic kidney disease, stage 3 4 Confirmed Active Chronic low back pain Confirmed Active Chronic pulmonary embolism Confirmed Active Impaired fasting glucose Confirmed 04/05/07 Active Lesion of lung 5, 6, 7, 8, 9, 10, 11, 12 Confirmed Active Malignant melanoma, stage IIIC Confirmed Active MIXED HYPERLIPIDEMIA Confirmed 01/05/11 Active CRISTIANA (obstructive sleep apnea) 13 Confirmed Active Fatty liver 14 Confirmed 09/03/16 Active Vitamin D deficiency 15 Confirmed Active Weight disorder Confirmed Active 1sees Dr. Prosper Marshall 2chest CT in 06/2015: 4.4cm. 3chest CT in 09/2014: 4.6cm ascendign aortic aneurysm. sees Dr. Ramirez in [facility] ([place]iology) 4sees Dr. Reddy 13:15 EDT - SHA Solo Jessica Impression: 1. Stable mild aneurysmal dilation of the ascending throacic aorta which measures 44 mm. 2. Stable 2 cm pleural-based right upper lobe nodule. This is likely benign given its 3 year stability. 14:30 - SHA Barry, Giancarlo Banks Impression: Stable distention root of the aorta at 4.6 cm. Stable pleural-based density antereior aspect right upper lung. Mild bibasilar atelecttic change considered stable. No new interval or progressive process. 7chest CT in 02/2016: stable pleural-based nodule 8chest CT in 06/2015: stable pleural-based nodule. chest CT scan showed stable pleural-based nodule within the anterior right hemithorax. 10will needs [address] f/u due to nondiagnostic biopsy per radilogist recommendaion. 11CT guided biopsy on 10/08/2014 showed nondiagnostic aspirate 12Chest CT scan in 09/2014 showed pleural bases right lung mass 13not tolerated CPAP 14abd/pelvis CT in 09/2016 showed fatty liver 15sees Dr. Reddy Diagnosis Diagnosis Type Effective Dates Health Status Clinical Service Informant Fatigue Discharge Diagnosis 01/03/24 Non-Specified Chronic pulmonary embolism Discharge Diagnosis 01/03/24 Non-Specified Hypotension Discharge Diagnosis 01/03/24 Non-Specified Anti-cardiolipin antibody positive Discharge Diagnosis 01/03/24 Non-Specified Malignant melanoma, stage IIIC Discharge Diagnosis 01/03/24 Non-Specified Pain in abdomen on palpation Discharge Diagnosis 01/03/24 Non-Specified Procedures Procedure Date Related Diagnosis Body Site Status Colonoscopy 1 12/21/22 Completed Arthroplasty-left side-left total shoulder arthroplasty, distal clavicle excision, biceps tenodesis with transfer to conjoined tendon, increased difficulty obesity BMI 40.2 2 09/07/22 Completed Chest x-ray 3 08/25/22 Completed MRI of brain 4 08/17/22 Completed Shave biopsy and cauterization of skin 06/16/22 Completed Knee replacement 2022 Comple roro Colonoscopy 6, 7 12/09/[address] chest PE 8 07/09/[address] 9 07/09/20 Completed CXR - Chest X-ray 10 06/30/20 Comp leted 4 teeth [email or web address] 07/[address] of chest with contrast 11 11/13/[address] 12 09/13/[address] of abdomen and pelvis 13 09/13/16 Completed Gamma Knife 14 06/27/16 Completed Echocardiogram 15 03/03/16 Complet ed Abnormal CXR 16 03/02/16 Completed Doppler venous bilateral low er extremities 17 02/29/[address] angiography 18 02/28/[address] of abdomen and pelvis 19 02/28/16 Completed CXR - Chest X-ray 20 02/28/16 Comp leted Ultrasound kidneys and bladder 21 09/08/[address] of chest 22 08/24/15 Completed CAT scan 23 04/16/15 Completed XRAY Lumbar spine 24 10/16/[address] guided biopsy of a pleura l based right lung mass 25 10/08/14 Completed CXR - Chest X-ray 26 10/08/14 Comp leted Procedure-CT Guided Bx of a pleural based right lung mass 27 10/08/[address] of chest 28 09/18/[address] of abdomen and pelvis 29 09/09/14 Completed MRI of brain 30 05/26/14 Completed excision of nasal mass Surgery 31 04/03/14 Completed Chest x-ray 32 02/06/14 Completed Extraction of wisdom tooth 10/30/13 Completed Colonoscopy 33 2011 Completed Shoulder, RIght Total Replacement 2011 Completed Total knee joint prosthesis, Bilateral 34 2010 Completed History of back surgery 2005 C ompleted Hernia repair 1989 Completed Left arm cut and repair 1983 C ompleted Nasopharynx Tumor removed, Benign 1963 Completed Tonsillectomy and adenoidectomy 1950 Completed 1COLO to cecum, 2 mm TC polyp CF, 2 mm DC polyp CF 3 mm sigmoid polyp CF, diverticulosis, 2left total shoulder arthroplasty, distal clavicle excision, biceps tenodesis with transfer to conjoined tendon, increased difficulty obesity BMI 40.2 3no acute chest disease 4no evidence for intracranial metastatic disease 5Right knee replacement 6COLO to cecum, 9 polyps removed--see report, hemorrhoids. 7Repeat in 1 year 8Mild cardiomegaly. Moderate coronary artery calcifications. Usiform dilation of the ascending thoracic aorta is unchaned, 4.4 x 4.4 cm. No dissection. Moderate mixed plaque. Patency of the imaged great vessels. Chronic linear nonocclusive filling defect is noted within a segmental branch of the right lower lobe, image 69 series 4. No acute pulmonary emboli identified. 9Impression: Patchy bilateral groundglass opacities are suspicious for viral pneumonia. Correlate with covid status. Mild mediastinal adenopathy Cardiomegaly without evidence of acute pulmonary emboli. Unchanged small chronic nonocclusive linear pulmonary embolus within the right lower lobe. Usiform dilation of the ascending thoracici aorta measuring 4.4 cm is unchanged. 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 101. Nonspecific increased basilar markings tsatistically atelectatic. No evidence of failure. No evidence of lobar consolidation. 11Impression: 1. Stable mild aneurysmal dilation of the ascending throacic aorta which measures 44 mm. 2. Stable 2 cm pleural-based right upper lobe nodule. This is likely benign given its 3 year stability. 12Impression: Stable distention root of the aorta at 4.6 cm. Stable pleural-based density antereior aspect right upper lung. Mild bibasilar atelecttic change considered stable. No new interval or progressive process. 13Impression: Punctate bilateral renal calculi which are more conspicuous on prior exam of February 28, 2016. No ureteral calculi bragg hydronephrosis. Colonic diverticulosis without evidence of acute diverticulitis 14[facility]. [facility] left trigeminal neuralgia 41.8 minutes 151. Normal left ventricullar size and segmental wall motion. LVEF 65% 2. Dilated ascending aorta. Known history of dilated ascending aorta, 4.4-4.[address] scan. 3. No significant regurgiatation or stenosis. 4. Normal PASP based on tricuspid regurgitant jet velocity. 161. Subpulmonic right pleural effusion. 2. Bibasilar opacities likely atelectatic. 17o evidence of deep venous thrombus within the bilateral lower extremities. 181. Right lower lobe pulmonary emboli. Right lower lobe opacity likely reflects atelectasis. 2. Stable dilatation of the ascending aorta which measures 4.6 cm. 3. No change in the 2 cm pleural-based nodule within the right hemithorax since CT of 09/08/14. This remains indeterminate. 19Impression: Bilateral nephrolithiasis. No hydronephrosis. No definite bowel wall thickening or obstruction. Colonic diverticulosis. Hepatic steatosis. A 2.5 cm pleural-based nodule within the right middle lobe. This is better appreciated on the same day chest CTA. 20Mild right lower lung opacity. The configuration favors atelectasis. 21Impression: The kidneys are atrophic and echogenic consistent with medical renal disease. There is no hydronephrosis. The bladder is normal as visualized. 221. There is unchanged ectasia of the ascending thoracic aorta which measures up to 4.4 cm. 2. There is no airspace consolidation or pleural effusion. 3. Unchanged appearance of a low suspicion 2.0 cm pleural-based nodule in the anterior right upper lobe as compared to 09/18/14. This remains of indeterminant significance. Continued folllow-up is advised. 4. Cardiomegaly. 5. There are calcification containing mediastinal and hilar lymph nodes. This could reflect the dequelae of remote granulomas infection or possibly a pneumoconiosis. linical correlation will be required. 6. Hepatomegaly and hepatic steatosis. 7. No new pulmonary lesions are identified. 23chest with IV contrast stable pleural based nodule within the anterior right hemithorax although only partially imaged on an earlier CT of November 28, 2012, this was present on the exam and is likely stable. Stabilitly over this time period favors a bening etiology. stable dilatation of the ascending aorta fatty infiltration of the liver 24Generalized osteopenia. There is no acute abnormality seen in the lumbosacral spine Postoperative changes from L4-S1 spinal fusion and degenerative changes as above. 254 passes into the pt's pleural based right lung mass were performed. There were no immediate complications. Final pathology is pending. The pt observed in MTU unit prior to D/C. 26No evidence or pneumothoraxstatus post lung biopsy 27CT Guided Bx of a pleural based right lung mass Impression: Four passes into the patient's pleural based right lung mass were performed. There wereno immediate complications. Final pathology is pending at this time. The patient will be observed in the medical treatment unit prior to anticipated dischange. bx: final diagnosis: Lung, right upper lobe, fine needle aspiration: nondiagnositc aspirate. see comment;The aspirate contains a moderate amount of mature adipose tissue and skeletal muscle. No pulmonary or nmesothelial tissue was noted and no obviously neoplastic material is noted. While there is s ignificant adipose tissue I would not make a diagnosis of lipoma based on this aspirate, as lipomasof the lung are quite rare and are typically cnetral and not pleural-based. I would favor that the fat is likely incidental rather than scheduling representative of the lesion, though correlation with radiographic fings to determine whether the lesion has imaging characteristics of fat might be helpful. Otherwise it is best to regard the aspirate as nondiagnostic. 28Impression: A 1 cm pleural based nodule showing equivocal chest wall involvement anterior aspect right upper lobe. A PET CT fusion scan of the chest is recommended to exclude an active lesion. Mild prominence of the ascending aorta with a maximyum transaxial dimension of 4.1 x 4.0 cm. 29Impression: No evidence of malignancy within the abdomen or pelvis on unenhanced exam Fatty infiltration of the liver Bilateral nephrolithiasis. No ureteral calculi or hydronephrosis 30No evidence of intracranial mass. No evidence of acute or subacute infarction No evidence of acute sinusitis Scattered foci of increased T2 signal w/in the white matter,likely on a small vessel basis. Small deep white matter lacunar infarct in the region of the right centrum semiovale. 31excision of nasal mass 32Small parenchymal infiltrate inferior to right hilum at level of medial right cardiophrenic angle. Plate like atelectasis left base. 33hyperplastic polyp 34Bilateral- both done twice 35Benign Vital Signs Most recent to oldest [Reference Range]: 1 Patient Weight 123.5 kg (01/03/24 7:43 AM) Temperature [36.5-37.9 DegC] 36.5 DegC (01/03/24 7:43 AM) Heart Rate 76 bpm (01/03/24 7:43 AM) Respiratory Rate 18 br/min (01/03/24 7:43 AM) Blood Pressure 118/56mmHg (01/03/24 7:43 AM) Cuff Pulse Pressure 62 mmHg (01/03/24 7:43 AM) Social History Social History Type Response Smoking Status Never smoked cigaret en Sex Male Sex Representation Male (finding) Implantable Device List Procedure Provider Procedure Date Device Type Site Unknown Unknown 03/30/23 Unknown Unknown Device Identifier Serial Number Lot or Batch Number Manufacturing Date Expiration Date Distinct Identification Code MRI Safety Implantable Status Assigning Authority Unknown Unknown Unknown 06/21/27 Unknown Unknown Active [facility] * Contributor_system, [id number]: VERIFY, PERFORM Event Display: EKG Authored Date: Please click on link to see image. FCM Outpt Note * JAMARI Buchanan Tara: PERFORM Event Display: FCM Outpt Note Authored Date: Chief Complaint C/O BP being low, states yesterday at [facility] was 90/46, after infusion was 102/50. Pt c/o fatigue, if he stands to quick he becomes "dizzy". States his nose has been slightly running the past day or so. History of Present Illness Had infusion for his melanoma yesterday. His bp was low 90/ It did come up. He has felt light head and weak the last week. He has felt fatigue. Has had mild headache. He states he is drinking. 2-5 16 ounce a day. He feels like his feet are more swollen. He is on coumadin and INR yesterday was 2.6. He has not had Coumadindose changed recently. Has been therapeutic. He had scans approx a month ago. Review of Systems Constitutional: No fever, chills, sweats EENT:No vision change, eye pain, rhinorrhea, sinus pain, epistaxis, dysphagia, change in hearing,tinnitus, vertigo, oral ulcers or lesions. Pulmonary: No dyspnea with exertion, cough, hemoptysis, wheezing, chest pain. +SOB Cardiovascular: No chest pain, palpitations, syncope, edema, cyanosis, claudication, orthopnea. GI: No nausea, vomiting, diarrhea, melena, hematochezia, change in appetite.Mild abdpain left side. No bowel changes. : No dysuria, frequency, urgency, urinary incontinence, hematuria, nocturia. Musculoskeletal: No joint swelling or pain, muscle pain, back pain Neurologic: No headache, dizziness.+lightheadedness, Psychiatric: No depression, anxiety Endocrine: No weight change, heat or cold intolerance, tremor, insomnia, polyuria, polydipsia, polyphagia, abnormal hair growth, change in nails Physical Exam Vitals & Measurements T:36.5C HR:76(Monitored) RR:18 BP:118/56 SpO2:93% WT:123.500kg(Dosing) WT:123.5kg PHQ2 Data(Data Documented on:01/03/2024 07:43) Emotional health assessment NEGATIVE head- normocephalic eyes- PERRLA , conjunctiva clear, sclera white, anicteric, ears- TM's non-injected, good light reflex, no protrusion or retraction nose -nares patent, no sinus pressure throat- pharynx non erythematous, no exudate, no masses mouth- buccal mucosa, moist and intact, dentition intact, neck-no lymphadenopathy, masses, or thyromegaly, +carotid pulses, no bruits, trachea midline Pulmonary- chest expansion symmetric, CTA (clear to auscultation), eupnea, no adventitious sounds (rales, crackles, wheezes) CV (cardiovascular)- RRR no m/r/g (systolic ejection murmur, rubs, gallops), good peripheral perfusion abdomen- soft w/o masses, BS present, no hepatosplenomegaly, no bruits.Mild tendernessonpalpation ofleftabd extremities +1 non pitting edema skin-good turgor w/o lesions, redness, cyanosis, edema nails- no clubbing or deformities w good cap refill Neuro:Alert, Oriented Psy:no homicidal or suicidal ideations. Assessment/Plan 1.Malignant melanoma, stage IIIC 2.Chronic pulmonary embolism 3.Anti-cardiolipin antibody positive 4.Hypotension 5.Pain in abdomen on palpation 6.Fatigue Acute/Chronic: acute Goal:Resolution/ control Status:ongoing Data: records/pt report Plan:For approx a week pt has not been feeling well. Rundown. He had immunotherapy yesterday for his melanoma. His BP was low and they almost did not give him therapy. His bp did come up after his infusion. His cbc and cmpfrom 2 days ago was unremarkable. Tshwas nl.He had scans in November thatdid not show met dz. He is having mild SOB but no CP. EKG NSR. Nonspecific t wave changes and incomplete RBBB. No change from EKG last year. Reviewed by DR. Pearl who concurred. He has mild non pitting edema +1 in lower ext. Lungs are clear. He has mild abd pain and tenderness on palpation. Has diverticulosis. CT C/A/P ordered to evaluation for PE due to hx ofPE and SOB. Check for diverticulitis due to abd pain/tenderness and hx of diverticulosis. Will check cbc,cmp and pro-bnp. BP is better in office today. Recommend pushing fluids and eating regularly. time spent reviewing chart, face to face visit, ordersand documentation: 43 min Problem List/Past Medical History Ongoing AA (aortic aneurysm) Anti-cardiolipin antibody positive Chronic kidney disease, stage 3 Chronic low back pain Chronic pulmonary embolism Fatty liver Impaired fasting glucose Lesion of lung Malignant melanoma, stage IIIC MIXED HYPERLIPIDEMIA CRISTIANA (obstructive sleep apnea) Vitamin D deficiency Weight disorder Resolved Chicken pox Colonoscopy Constipation Elevated LFTs Hypertensive disorder Hypertensive kidney disease with stage 3 chronic kidney disease Left facial pain Melanoma Morbid obesity (disorder) Nasal mass Pre-op exam RENAL CALCULUS Thrombocytopenic disorder (disorder) Trigeminal Neuralgia Trigeminal neuralgia Procedure/Surgical History Colonoscopy| Service Date: 12/21/2022rthroplasty-left side-left total shoulder arthroplasty,distal clavicle excision, biceps tenodesis with transfer to conjoined tendon, increased difficulty obesity BMI 40.2| Service Date: 09/07/2022hest x-ray| Service Date: 08/25/2022MRI of brain| Service Date: 08/17/2022Shave biopsy and cauterization of skin| Service Date: 3Knee replacement| Service Date: olonoscopy| Service Date: 12/09/2021ngiogram CT chest PE| Service Date: 07/09/2020hest CT| Service Date: 07/09/2020XR - Chest X-ray| Service Date: teeth | Service Date: 07/2019CT of chest with contrast| Service Date: 11/13/2017CT of abdomen and pelvis| Service Date: 09/13/2016Chest CT| Service Date: 09/13/2016Gamma Knife| Service Date: 06/27/2016Echocardiogram| Service Date: 03/03/2016Abnormal CXR| Service Date: 03/02/2016Doppler venous bilateral lower extremities| Service Date: 02/29/2016CT of abdomen and pelvis| Service Date: 02/28/2016CT angiography| Service Date: 02/28/2016CXR - Chest X-ray|Service Date: 02/28/2016Ultrasound kidneys and bladder| Service Date: 09/08/2015CT of chest| Service Date: 08/24/2015CAT scan| Service Date: 04/16/2015XRAY Lumbar spine| Service Date: 10/16/2014Procedure-CT Guided Bx of a pleural based right lung mass| Service Date: 10/08/2014CT guided biopsy of a pleural based right lung mass| Service Date: 10/08/2014CXR - Chest X-ray| Service Date: 10/08/2014CT of chest| Service Date: 09/18/2014CT of abdomen and pelvis| Service Date: 09/09/2014MRI of brain| Service Date: 05/26/2014excision of nasal mass Surgery| Service Date: 04/03/2014Chest x- ray| Service Date: 02/06/2014Extraction of wisdom tooth| Service Date: 10/04Shoulder, RIght Total Replacement| Service Date: 2011Colonoscopy| Service Date: 2011Total knee joint prosthesis, Bilateral| Service Date: 2010History of back surgery| Service Date: 2005Hernia repair| Service Date: 1989Left arm cut and repair| Service Date: 1983NasopharynxTumor removed, Benign| Service Date: 1963Tonsillectomy and adenoidectomy| Service Date: 1950 Medications acetaminophen(Tylenol 500 mg oral tablet), 1000 mg= 2 tab, PO, tid allopurinol(allopurinol 100 mg oral tablet), 1 tab, PO, bid hydrochlorothiazide-lisinopril(hydrochlorothiazide-lisinopril 12.5 mg-10 mg oral tablet), 1 tab, PO, Daily multivitamin, 1 tab, PO, qMonThu multivitamin(Multi Vitamin+), 1 tab, PO, Daily ocular lubricant(Systane) polyethylene glycol 3350(MiraLax oral powder for reconstitution), 17 g, PO, Daily, PRN potassium citrate(potassium citrate 10 mEq oral tablet, extended release), 10 mEq= 1 tab, PO, bid, 3 refills pravastatin(pravastatin 20 mg oral tablet), 1 tab, PO, Daily pregabalin(Lyrica 150 mg oral capsule), 150 mg= 1 cap, PO, tid warfarin(warfarin 5 mg oral tablet), 5 mg= 1 tab, PO, Daily Allergies HYDROcodonerash OxyContinrash TEGretolrash gabapentinrash oxyCODONErash simvastatin- muscle and joint pain traMADolrash Social History Smoking Status Never smoked cigarettes Alcohol - No Risk Exercise - Regular exercise Exercise type:Walking Substance Abuse - Denies Substance Abuse Tobacco - Denies Tobacco Use Family History CAD: Sister. Diabetes: Sister. Heart attack: Father. High Blood Pressure: Mother. Hyperlipidemia..: Mother. Nephrolithiasis..: Brother. Health Status Family Member(s) Immunizations Vaccine Date Status influenza virus vaccine, inactivated 04/26/2023 Given Comments : charted in error influenza virus vaccine, inactivated 02/24/2023 Given influenza virus vaccine, inactivated 03/08/2022 Given influenza virus vaccine, inactivated 02/26/2021 Given influenza virus vaccine, inactivated 03/11/2020 Given tetanus/diphtheria/pertuss, acel (Tdap) 02/03/2020 Given zoster vaccine, inactivated 12/2019 Recorded influenza virus vaccine, inactivated 03/28/2019 Given influenza virus vaccine, inactivated 05/02/2017 Given influenza virus vaccine, inactivated 03/16/2016 Given pneumococcal 13-valent vaccine 03/02/2015 Given influenza virus vaccine, inactivated 03/02/2015 Given influenza virus vaccine, inactivated 04/07/2014 Given zoster vaccine live 10/11/2013 Recorded influenza virus vaccine, inactivated 03/18/2013 Given tetanus/diphtheria/pertuss, acel (Tdap) 11/04/2009 Recorded pneumococcal 23-valent vaccine 11/04/2009 Recorded hepatitis B adult vaccine 11/23/1999 Recorded hepatitis B adult vaccine 10/19/1999 Recorded tetanus toxoids-diphtheria, Td (Adult) 10/19/1999 Recorded Recommendations Health Maintenance Pending(in the next year) OverDue Medicare Annual Wellness Visit due03/08/23and every 1year Adult Influenza Vaccine due12/03/23and every 1year Due Adult COVID-19 Vaccination due01/03/24Unknown Frequency Adult Social Determinants of Health Screening due01/03/24Unknown Frequency Shingles Vaccine due01/03/24One-time only Satisfied(in the past 1 year) Satisfied Adult Influenza Vaccine on04/26/23.Satisfied by SHA Be Heather Body Mass Index on08/25/23.Satisfied by SHA Be Heather Lipid Screening on02/15/23.Satisfied by Contributor_system, [employer] Electronic Signature on File Electronically Reviewed/Signed by: JAMARI Jackson Author Signature Dt/Tm:01/03/2024 10:03 AM Department of Family [facility] * JAMARI Buchanan Tara: PERFORM Event Display: FCM Outpt Note Authored Date: CTA showed chronic nonocclusive and partially calcified emboli are again noted within the right lower lobe segmental pulmonary arteries. There is an occluded subsegmental branch within the posterior basal right lower lobe pulmonary artery which is new compared to prior study. This could represent an acute pulmonary embolus. Stable 2 cm right anterior pleural-based nodule. Focal irregular d ensity within the base of the right lower lobe is similar to the prior study and favoring scarring. This could be due to a chronic pulmonary infarct. No focal lung consolidations to suggest pneumonia CT scan of the abdomen and pelvis no acute intra-abdominal or intrapelvic abnormality. Unchanged iliac lymphadenopathy. 1.2 cm right renal lesion could be confirmed with a nonemergent follow-up renal ultrasound. Prostamegaly with possible prostate lesion which could be correlated with serum PSA. Chronic findings as above. Spoke to pt regarding his result. I have advised him to go to ER. He is in agreement. I called ER and spoke to charge nurse. Will also need to schedule a US of the kidney due to new lesion. Will sendcopy of ct to urology due to changes seen in prostate. Spent another 21 min in coordination of care. Electronic Signature on File Electronically Reviewed/Signed by: JAMARI Jackson Author Signature Dt/Tm:01/03/2024 05:02 PM Department of Family Medicine TB * JAMARI Buchanan Tara: PERFORM Event Display: FCM Outpt Note Authored Date: [id number] total time 43 and 21 min total=64 min Electronic Signature on File Electronically Reviewed/Signed by: JAMARI Jackson Author Signature Dt/Tm:01/03/2024 05:03 PM Department of Family Medicine TB Patient Care team information Care Team Personnel Name: JAMARI Buchanan Tara Position: Nurse Pract - Family Med Member Role: Lifetime Relationship Address: [address] [place] [address] Name: MD Encarnacion Juan Position: Physician - Family Med Member Role: Primary Care Provider Address: [address] [place] [address] Name: Taty Vance Paula Position: Pharmacist Member Role: Pharmacy - Lifetime Address: [address] [address] Name: Taty Gomes Brittani Position: Pharmacist Member Role: Pharmacy - Lifetime Care Team Related Persons Name: HECTOR HADDAD
--- NOTE | 2024-01-11 14:32 | Electrocardiogram Report ---
Test Reason : Blood Pressure : */* mmHG Vent. Rate : 99 BPM Atrial Rate : 99 BPM P-R Int : 192 ms QRS Dur : 86 ms QT Int : 370 ms P-R-T Axes : 31 -51 29 degrees QTcB Int : 474 ms Normal sinus rhythm Left axis deviation Low voltage QRS Poor R wave progression, consider anterior MT vs. lead placement vs. LVH Abnormal ECG Confirmed by Prosper Andersen ([id number]) on 01/11/2024 2:32:13 PM Referred By: Stef Encarnacion Confirmed By: Prosper Andersen
[2024-01-11] MEDS ORDERED: VANCOMYCIN CONSULT ACTIVE PRN (14:42)
[2024-01-11 14:44] LABS: Appearance Urine Clear (Clear); Bacteria Urine Automated None Seen (None Seen); Bilirubin Urine Negative (Negative); Blood Urine Negative (Negative); Cast Urine Automated 0-2 /lpf (0-2); Color Urine Yellow; Epithelial Cell Urine Auto 0-2 /hpf (0-2); Glucose Urine UA Negative (Negative); Ketones Urine Trace (Negative); Leukocyte Esterase Urine 1+ (Negative); Nitrite Urine Negative (Negative); Protein Urine Negative (Negative); RBC Urine Automated 0-2 /hpf (0-2); Specific Gravity Urine 1.021 (1.000-1.030); Urobilinogen Urine Negative (Negative)
--- NOTE | 2024-01-11 15:01 | History & Physical Report ---
Date of Service January 11, 2024 Assessment & Plan (1) Bilateral cellulitis of lower leg: Plan: Assessment: 1. Nausea and vomiting x 48 hours. Appears to be resolving. Last emesis was 7[address] I will place patient on clear liquids. He has a reassuring CAT scan at this time of the abdomen pelvis. 2. Acute/subacute cellulitis lower extremities. It appears the left lower extremity is decompensated and significantly worse than it was prior to discharge. On placing the patient on IV vancomycin and IV Rocephin. 3. Hypomagnesemia. Replaced we will recheck in the morning. 4. Peripheral edema. The patient received a dose of IV Lasix in the ER. Will give no more Lasix given the recent acute kidney injury. 5. Status post acute kidney injury last week during admission. With a history of CKD stage III. Creatinine normal today monitor carefully. 6. History of pulmonary embolism. With failed Coumadin therapy. Patient is on Lovenox 1 mg/kg every 12 this has been ordered appropriately. Patient did have his morning dose at 9 AM today next dose due 9 PM today. 7. Right renal cyst possibly by CAT scan today. Recommending outpatient ultrasound for clarification. This should be done via the PCPs office. 8. Hypertension. Continue same home medications. 9. History of malignant melanoma. Currently on pembrolizumab. Is following with oncology. 10. Morbid obesity. 11. High clinical suspicion of obstructive sleep apnea with recommendation with short-term outpatient follow-up with primary care to arrange formal sleep study. If positive then remains untreated this will contribute to ongoing acute decompensation of right-sided heart failure, etc. Plan: As described above. Please refer to orders for further planning. History of Present Illness Chief Complaint: Nausea, vomiting, leg edema under outpatient treatment for cellulitis with Keflex just discharged from the acute care facility here [facility] 48 hours ago. Primary Care Provider: Stef Encarnacion MD 78-year-old male was discharged on January 09, 2024. He was admitted with bilateral lower extremity cellulitis. Has a history of PE with failed Coumadin therapy and now is on twice daily Lovenox therapy. Had some acute kidney injury during his stay as well. He presented to his outpatient primary care provider's office today for posthospitalization follow-up and was directed back to the ER due to his nausea and vomiting and leg erythema/edema. The patient states his last emesis was around 730 this morning he had 2 episodes of emesis this morning multiple episodes yesterday. He is uncertain as to whether or not he has been keeping his antibiotic down or he has been vomiting and shortly after his antibiotic and may be not getting his recommended dose. In the ER laboratory studies were unremarkable hemoglobin stable at 12.7 creatinine is actually normal at 1.24 electrolytes are satisfactory. Mag was mildly suppressed at 1.5. CT of the abdomen pelvis was performed because of the nausea and vomiting. It was negative for acute findings. There was a right renal cyst noted renal ultrasound recommended on outpatient basis to confirm cyst. Course in the ER the patient received 40 mg of IV Lasix. And received a gram of magnesium sulfate. Recall admit the patient further evaluation and treatment. In comparison to the pictures from the H&P on admission from a week ago, the patient's cellulitis in the right lower extremity is improving its significantly worse on the left lower extremity. Therefore going to place the patient on IV vancomycin and IV Rocephin. Will do no further diuresis given the patient's recent acute kidney failure. He is diuresing well with the 40 mg of Lasix already given. And will maintain him on his 1 mg/kg with subcu Lovenox. Allergies Allergy/AdvReac Type Severity Reaction Status Date / Time gabapentin Allergy Intermediate Rash Verified 01/11/24 14:50 tramadol Allergy Intermediate Rash and Verified 01/11/24 14:50 itchiness hydrocodone Allergy Mild itchy Verified 01/11/24 14:50 oxycodone Allergy Mild itchy Verified 01/11/24 14:50 carbamazepine Allergy Unknown Unknown Verified 01/11/24 14:50 ciprofloxacin Allergy Unknown Unknown Verified 01/11/24 14:50 Home Medications Medication Instructions Recorded Confirmed Type lisinopril 10 1 tab PO QAM #0 tabs 08/31/12 01/03/24 History mg-hydrochlorothiazide 12.5 mg tablet pravastatin 20 mg tablet 20 mg PO HS ##0 02/28/16 01/03/24 History allopurinol 100 mg tablet 100 mg PO BID 90 days #180 tabs 12/22/21 01/03/24 Rx acetaminophen 500 mg tablet 1,000 mg PO Q8 PRN Pain 10/28/22 01/03/24 History (Tylenol Extra Strength) polyethylene glycol 3350 17 17 g PO DAILY PRN Constipation 01/06/23 01/03/24 History gram/dose oral powder (Miralax) pregabalin 150 mg capsule (Lyrica) 300 mg (2 x 150 mg) PO BID #360 08/16/23 01/03/24 Rx caps fluorometholone 0.1 % eye 1 drp OPB DAILY 01/03/24 01/03/24 History drops,suspension enoxaparin 120 mg/0.8 mL 120 mg (0.8 mL) subcut Q12H 30 01/04/24 Rx subcutaneous syringe (Lovenox) days #48 mL cephalexin 500 mg capsule 500 mg PO Q6H 3 days #12 caps 01/09/24 Rx furosemide 40 mg tablet (Lasix) 40 mg PO DAILY PRN Edema #30 tabs 01/09/24 Rx potassium citrate 10 mEq (1,080 10 meq PO BID 01/11/24 01/11/24 History mg) tablet,extended release Past Med/Surg History Problem List (Updated 01/11/24 @ 14:11 by Tiffanie Escamilla MD) Vomiting (Acute) Hypomagnesemia (Acute) Bilateral cellulitis of lower leg (Acute) Bilateral leg edema (Acute) Prostate nodule ELISABETH (acute kidney injury) Hypomagnesemia Bilateral cellulitis of lower leg (Acute) Leg swelling (Acute) ALVAREZ (dyspnea on exertion) (Acute) Pulmonary embolism (Acute) Cellulitis Incontinence Port-A-Cath in place (01/24/23) Infusaport Insertion to right internal jugular with Fluoroscopy(Right) - Sim Tolbert, DO Allergic reaction (Acute) Pulmonary embolism Trigeminal neuralgia (Acute) Trigeminal neuralgia (Acute) Vitamin D deficiency (Acute) Hypertension (Acute) Chronic kidney disease, stage 3 (Acute) Vitamin D deficiency (Chronic) Prostate cancer screening Thoracic ascending aortic aneurysm COVID-19 (Acute) Gastritis Insomnia Encounter for pre-operative examination Primary osteoarthritis, left shoulder Low back pain with sciatica (Acute) History of pulmonary embolism 2015, unknown etiology 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 This is similar to the prior studies." Follows with Dr. Marshall Hypercholesterolemia (Acute) Stone in kidney Hx Hypertension (Chronic) Chronic kidney disease, stage III (moderate) (Chronic) Trigeminal neuralgia (Acute) s/p radiated nerve, No issues x several years Medical History Osteoarthritis Surgical History History of left shoulder replacement History of right shoulder replacement History of total left knee replacement (TKR) History of total right knee replacement (TKR) with revision History of colonoscopy History of inguinal hernia repair History of cancer surgery Left side of neck resection + lymph node removal History of tooth extraction History of tonsillectomy and adenoidectomy History of sinus surgery History of cystoscopy History of cataract surgery bilateral History of back surgery L4-L5 with screws Family History Family/Other Diabetes Heart disease Nephrolithiasis Other No family history of adverse response to anesthesia Social History Smoking Status: Never smoker Second Hand Exposure: No; Do You Dip or Chew Tobacco: No; Hx Alcohol Use: No Hx Substance Use: No Preferred Language: Turkish Communication Ability: 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 Physical Exam Physical Exam: In General: In general is a 78-year-old male was alert and oriented x 3 at the time of my exam he is accompanied by his at the time of my exam. He interacts appropriately and pleasantly. He is in no acute distress. He mitts to some mild nausea right now but it is much improved and again has not had any emesis since 730 this morning. HEENT: Normocephalic atraumatic pupils are equal round and reactive to light bilaterally. No scleral icterus no conjunctival injection external auditory canals are patent septum is in the midline nose is without discharge oral mucosa is pink and moist without lesion. NECK: Supple no rigidity no lymphadenopathy no thyromegaly no carotid bruits no JVD no masses. Greater than 20 inches in circumference with high suspicion for obstructive sleep apnea. The patient states he is never been tested. However while sleeping in the room earlier in the ER he did desat into the 80s and supplemental oxygen was placed. He is in the mid to high 90s at this point while awake. HEART: Regular rate and rhythm I do not appreciate any ectopy or rub. No murmur. LUNGS: Clear to auscultation bilaterally and anteriorly with no evidence of adventitious sounds/wheezes rales or rhonchi. ABDOMEN: Obese, soft nontender, no rebound, no peritoneal signs, positive bowel sounds, no appreciable organomegaly. EXTREMITIES: Intact, no peripheral cyanosis, clubbing. The patient has 1-2+ pitting edema bilaterally. Left worse than right. In addition the patient has cellulitis of the left lower extremity. This is outlined with a marking pen. Is erythematous. Is warm to the touch. It is not weeping. This appears to be significantly worse from the admitting pictures from last week. His right lower extremity cellulitis appears to be resolving nicely. Pulses are palpable. NEUROLOGICAL: Cranial nerves II through XII are grossly intact with no focal deficit elicited upon examination. Results & Data Results & Data Vital Signs (Past 12 Hours) Vital Signs Temp Pulse Pulse Resp BP BP Pulse Ox 01/11/24 14:26 91 01/11/24 13:30 87 L 01/11/24 13:08 97 H 18 121/61 91 01/11/24 12:22 94 H 01/11/24 11:17 96 H 20 91 01/11/24 10:36 36.5 C 92 H 20 147/69 H 94 O2 Del Method O2 Flow Rate 01/11/24 14:26 Nasal Cannula 0.5 01/11/24 13:30 Room Air 01/11/24 13:08 Room Air 01/11/24 12:22 01/11/24 11:17 Room Air 01/11/24 10:36 Room Air Code Status & VTE Plan Code Status The patient is a conditional code. I spoke specifically with him he under no circumstances wants intubation and mechanical ventilation. If he has a cardiac arrest he is okay with medications and only 1 attempt at defibrillation or cardioversion. He states he only wants "1 shock" and no more than that. We did counseling. We did explain what happens during the cardiopulmonary arrest. However the patient states that this is his wishes and therefore we will comply if the patient would happen to have an arrest VTE Prophylaxis Plan VTE Prophylaxis will be ordered: Yes PG Care Time/CCT Total # of Minutes Spent Total Time Spent with Patient: Total time spent is greater than 50% in coordination of care (as documented) at patient's floor/unit and/or counseling patient: Coding Level of Care Code 87392 INT INP/OBS CARE 3/75MIN Diagnoses Bilateral cellulitis of lower leg L03.116; L03.115
[2024-01-11] MEDS: cefTRIAXone SODIUM 2,000 MG/50 ML BAG IV SCH (15:52)
[2024-01-11] MEDS: VANCOMYCIN HCL 2,750 MG in SODIUM CHLORIDE 0.9% 500 ML IV STA (17:11)
[2024-01-11] MEDS ORDERED: VANCOMYCIN HCL 1,500 MG in SODIUM CHLORIDE 0.9% 500 ML IV SCH (21:00)
[2024-01-11] MEDS ORDERED: ENOXAPARIN 1 MG/KG SC SCH (21:00)
[2024-01-11] MEDS: PRAVASTATIN SOD 20 MG TAB PO SCH (21:07)
[2024-01-11] MEDS: POTASSIUM CITRATE 10 MEQ TAB PO SCH (21:07)
[2024-01-11] MEDS: ENOXAPARIN 150 MG/ML SYR SQ SCH (21:07)
[2024-01-11] MEDS: allopurinoL 100 MG TAB PO SCH (21:07)
[2024-01-11] MEDS: PREGABALIN 150 MG CAP PO SCH (21:07)
[2024-01-11] MEDS: ONDANSETRON INJ 2 MG/ML 2 ML VIAL IV PRN (21:13)
[2024-01-12] MEDS: VANCOMYCIN HCL 1,500 MG in SODIUM CHLORIDE 0.9% 500 ML IV SCH (06:41)
[2024-01-12 07:10] LABS: Basophils # (auto) 0.05 K/uL (0.00-0.20); Basophils % (auto) 0.8 %; Eosinophils # (auto) 0.33 K/uL (0.00-0.50); Eosinophils % (auto) 5.4 %; Hematocrit (blood only) 36.2 % (42.0-52.0); Hemoglobin 12.1 g/dl (14.0-18.0); Immature Granulocytes # (auto) 0.02 K/uL (0.01-0.20); Immature Granulocytes % (auto) 0.3 %; Lymphocytes # (auto) 1.25 K/uL (1.20-3.40); Lymphocytes % (auto) 20.4 %; Mean Corpuscular Hemoglobin 32.4 pg (25.0-34.0); Mean Corpuscular Hgb Conc 33.4 g/dL (32.0-36.0); Mean Corpuscular Volume 97.1 fL (80.0-100.0); Monocytes # (auto) 0.98 K/uL (0.11-0.59); Neutrophils % (auto) 57.1 %; Platelet Count 158 K/uL (130-400); RDW Coefficient of Variation 14.2 % (11.5-14.5); RDW Standard Deviation 49.9 fL (36.4-46.3); Red Blood Count 3.73 M/uL (4.70-6.10); White Blood Count 6.13 K/ul (4.8-10.8)
[2024-01-12 07:34] LABS: Albumin Globulin Ratio 1.1 (0.9-2); Albumin Level 3.3 gm/dl (3.4-5.0); BUN Creatinine Ratio 14.9 (10-20); Bilirubin,Total 0.8 mg/dl (0.2-1.0); Calcium 8.9 mg/dl (8.6-10.3); Chol HDL Ratio 6.4 (0-5); Creatinine Clr Calc Pharmacy 51.5 ml/min; Est GFR (African American) 51.4 ml/min; Est GFR (Non-African American) 44.4 ml/min; Magnesium 1.6 mg/dl (1.7-2.4); Potassium 3.8 mmol/L (3.5-5.1); Total Protein 6.3 gm/dl (6.0-8.3)
[2024-01-12 07:35] LABS: Prothrombin Time 11.2 Seconds (9.0-12.0)
[2024-01-12 07:48] LABS: Thyroid Stimulating Hormone 3.495 uIu/ml (0.300-4.500)
[2024-01-12] MEDS: LISINOPRIL/HCTZ 10/12.5MG TAB PO SCH (08:19)
--- NOTE | 2024-01-12 10:15 | Pharmacy Report ---
Pharmacy PK ABX Note - Date of Service January 12, 2024 - Assessment and Plan Assessment 01/12/24: 78 year old M started on Vancomycin yesterday for treatment of bilateral lower extremity cellulitis. Mr. Maldonado was recently admitted here at [facility] [place] and treated for LE Cellulitis with Rocephin 2 gm IV daily x 6 days. Discharged on 01/09/24 on Keflex. He came back yesterday for worsening cellulitis. He has history of CKD- stage 3 and morbid obesity. Increases risk for Vancomycin accumulation. Started yesterday on Vancomycin and Rocephin. Today is Day #2 of antimicrobial therapy. Plan Vancomycin * Loading dose: 2750 mg IV x 1 given yesterday evening. * Maintenance dose: 1500 mg IV every 24 hours started this AM. * Regimen is predicted to achieve an AUC/SOSA of 626 mg/L.hr which is slightly above target AUC/SOSA of 400-600 mg/L.hr * Will obtain a trough Vancomycin level tomorrow (before steady state achieved) to confirm dosing is appropriate. * Trough level ordered for: 01/13/24 AM Pharmacy will continue to follow and will adjust dose/frequency as necessary. Thank you. Pharmacy has transitioned to AUC monitoring for vancomycin. AUC/SOSA is the preferred PK/PD target and is associated with decreased risk of nephrotoxicity compared to traditional trough targets.
[2024-01-12 11:59] LABS: Base Excess VBG 3.2 mEq/L; HCO3 VBG 30 mmol/L; Oxygen Saturation VBG 79.8 %; PCO2 VBG 53 mmHg (38-50); PO2 VBG 45 mmHg; pH VBG 7.36 (7.36-7.41)
[2024-01-12] MEDS: SODIUM CHLORIDE 0.9% 1,000 ML IV SCH ×2 (12:00→13:21)
[2024-01-12 12:06] LABS: Hematocrit (blood only) 35.7 % (42.0-52.0); Hemoglobin 11.6 g/dl (14.0-18.0); Mean Corpuscular Hemoglobin 31.8 pg (25.0-34.0); Mean Corpuscular Hgb Conc 32.5 g/dL (32.0-36.0); Mean Corpuscular Volume 97.8 fL (80.0-100.0); Mean Platelet Volume 9.6 fL (9.4-12.4); Platelet Count 155 K/uL (130-400); RDW Coefficient of Variation 14.4 % (11.5-14.5); RDW Standard Deviation 51.3 fL (36.4-46.3); Red Blood Count 3.65 M/uL (4.70-6.10); White Blood Count 6.32 K/ul (4.8-10.8)
[2024-01-12] MEDS: NOREPINEPHRINE/D5W 4 MG/250 ML PLCT IV SCH (14:29)
[2024-01-12] MEDS ORDERED: STAT IV Infusion **Titration per Protocol STA (15:02)
[2024-01-12] MEDS: NOREPINEPHRINE/D5W 4 MG/250 ML IV ONE (15:39)
--- NOTE | 2024-01-12 16:17 | Critical Care Consultation ---
Date of Consultation January 12, 2024 Assessment & Plan (1) Hypovolemic shock: (2) Severe sepsis: (3) Chronic kidney disease, stage III (moderate): (4) Complicated UTI (urinary tract infection): Plan 78-year-old male with a history of melanoma, hypertension, PE and hyperlipidemia presenting with hypovolemic shock and signs of severe sepsis. Currently on low- dose Levophed via Port-A-Cath. Neurologic: No significant issues at present. No signs of delirium. Pulmonary: Patient without any significant pulmonary issues at present. Has a history of PE. Currently anticoagulated with Lovenox. Cardiovascular: Last echo from 2019 with normal RV function and LVEF of 55 to 60%. Repeat echo today. Check troponins and EKG. Levophed to maintain maps above 65 mmHg. Gastrointestinal: Advance diet as tolerated. CT abdomen pelvis on admission without any acute findings. LFTs largely unremarkable. No clear cause for the patient's nausea and vomiting on presentation. Will check lipase and lactic acid. Renal: Follow urine output closely. See in place. Patient with mild ELISABETH. UA did show positive leuk esterase and WBCs. No cultures were sent. Infectious disease: Undifferentiated sepsis. Possibility of cellulitis in the lower extremities. Currently on vancomycin and ceftriaxone. UA was positive on admission, but no culture sent. Blood cultures negative to date. Will obtain urine cultures and Pro-Damian. Hematologic: On full dose Lovenox for history of PE. Mild anemia which is close to his baseline. Normal platelet count. Endocrine: TSH unremarkable. Maintain euglycemia. Lines and tubes: Patient with Port-A-Cath. Using this for vasopressors. VTE prophylaxis: Full dose Lovenox CODE STATUS: Okay for CPR and defibrillation per hospitalist service. Does not want intubation. Family at bedside: None at bedside Disposition: ICU. Discussed with hospitalist service and bedside RN. I have personally spent 44 minutes of critical care time in the direct management of this patient. This is a life/limb threatening event. This includes time spent evaluating patient, direct bedside care, chart review, placing orders, interpretation of diagnostic studies, discussion with consultants, patient, and family members, as well as other required patient management activities. This time is exclusive of all separately billable procedures, and teaching time and separate from and in addition to any other critical care service time. Thank you for allowing us to participate in the care of this patient. History of Present Illness Reason for Consultation: Hypotension Attending Physician: Bishnu Hogan History of Present Illness 78-year-old male who presented to the hospital with lower extremity edema and vomiting. He is brought down to the ICU due to hypotension refractory to fluids. His blood pressures had systolics in the 70s on arrival and when I saw the patient he had systolics in the 80s. He was started on low-dose Levophed via Port-A-Cath. He does have a history of melanoma. He is currently being treated for cellulitis of his bilateral lower extremities. He denies any major complaints at this time aside for swelling in his legs. He denies chest pain, shortness of breath, fevers or chills. I discussed with the patient hospitalist and bedside nurse. Allergies Allergy/AdvReac Type Severity Reaction Status Date / Time gabapentin Allergy Intermediate Rash Verified 01/11/24 14:50 tramadol Allergy Intermediate Rash and Verified 01/11/24 14:50 itchiness hydrocodone Allergy Mild itchy Verified 01/11/24 14:50 oxycodone Allergy Mild itchy Verified 01/11/24 14:50 carbamazepine Allergy Unknown Unknown Verified 01/11/24 14:50 ciprofloxacin Allergy Unknown Unknown Verified 01/11/24 14:50 Home Medications Medication Instructions Recorded Confirmed Type lisinopril 10 1 tab PO QAM #0 tabs 08/31/12 01/11/24 History mg-hydrochlorothiazide 12.5 mg tablet pravastatin 20 mg tablet 20 mg PO HS ##0 02/28/16 01/11/24 History allopurinol 100 mg tablet 100 mg PO BID 90 days #180 tabs 12/22/21 01/11/24 Rx acetaminophen 500 mg tablet 1,000 mg PO Q8 PRN Pain 10/28/22 01/11/24 History (Tylenol Extra Strength) polyethylene glycol 3350 17 17 g PO DAILY PRN Constipation 01/06/23 01/11/24 History gram/dose oral powder (Miralax) pregabalin 150 mg capsule (Lyrica) 300 mg (2 x 150 mg) PO BID #360 08/16/23 01/11/24 Rx caps fluorometholone 0.1 % eye 1 drp OPB DAILY PRN Eye 01/03/24 01/11/24 History drops,suspension Inflammation enoxaparin 120 mg/0.8 mL 120 mg (0.8 mL) subcut Q12H 30 01/04/24 01/11/24 Rx subcutaneous syringe (Lovenox) days #48 mL cephalexin 500 mg capsule 500 mg PO Q6H 3 days #12 caps 01/09/24 01/11/24 Rx furosemide 40 mg tablet (Lasix) 40 mg PO DAILY PRN Edema #30 tabs 01/09/24 01/11/24 Rx potassium citrate 10 mEq (1,080 10 meq PO BID 01/11/24 01/11/24 History mg) tablet,extended release Patient History Medical History Osteoarthritis Surgical History History of left shoulder replacement History of right shoulder replacement History of total left knee replacement (TKR) History of total right knee replacement (TKR) with revision History of colonoscopy History of inguinal hernia repair History of cancer surgery Left side of neck resection + lymph node removal History of tooth extraction History of tonsillectomy and adenoidectomy History of sinus surgery History of cystoscopy History of cataract surgery bilateral History of back surgery L4-L5 with screws Family History Family/Other Diabetes Heart disease Nephrolithiasis Other No family history of adverse response to anesthesia Social History Smoking Status: Never smoker Second Hand Exposure: No; Do You Dip or Chew Tobacco: No; Hx Alcohol Use: No Hx Substance Use: No Preferred Language: Prydein[place] Communication Ability: Effective Gas Shovel Operator Required: No Beliefs That Will Affect Care: None Current Living Situation: Spouse current occupational status: retired Feels Safe at Home: Yes Seatbelt Use: always Assistive Devices: Cane, Walker and Wheelchair Review of Systems Review of Systems: All systems reviewed & are unremarkable except as noted in HPI & below Physical Exam Physical Exam: Constitutional: Patient appears to be of their stated age. Patient is in no apparent distress. Patient is well-developed. Eyes: Pupils are equal round and reactive to light. Conjunctivae are normal. Anicteric sclera. Ears nose, mouth and throat: Mallampati class 2. Normal posterior oropharynx. Uvula is midline. Neck: Trachea is midline. Visual inspection is normal. Respiratory: Clear to auscultation bilaterally. No use of accessory muscles. No significant clubbing noted. Cardiovascular: Regular rate and rhythm. No murmurs. No edema. Gastrointestinal: Normal bowel sounds, soft, nontender and nondistended. No hepatosplenomegaly noted. Musculoskeletal: No cyanosis. Patient is able to move all extremities. Strength is 5 out of 5 in the upper and lower extremities. Skin: Bilateral lower extremity redness around the ankles up to the shins. Neurologic: No obvious focal neurological deficits seen. Psychiatric: Alert and oriented x3 with a euthymic affect. Results & Data Results & Data Vital Signs (Past 12 Hours) Vital Signs Temp Pulse Pulse Resp BP BP Pulse Ox 01/12/24 13:30 85 20 93/57 L 95 01/12/24 13:19 85 18 65/37 L 98 01/12/24 12:44 87 20 85/48 L 96 01/12/24 12:31 84 18 100/56 L 97 01/12/24 12:13 82 18 94/56 L 01/12/24 12:00 80 20 77/44 L 98 01/12/24 11:48 94 01/12/24 11:44 70/38 L 01/12/24 11:43 36.7 C 85 18 71/37 L 95 01/12/24 08:20 01/12/24 08:20 01/12/24 07:30 36.7 C 91 H 18 113/62 94 01/12/24 07:10 93 H O2 Del Method O2 Flow Rate 01/12/24 13:30 Room Air 01/12/24 13:19 Nasal Cannula 3 01/12/24 12:44 Nasal Cannula 3 01/12/24 12:31 Nasal Cannula 97 01/12/24 12:13 Nasal Cannula 3 01/12/24 12:00 Nasal Cannula 3 01/12/24 11:48 Nasal Cannula 4 01/12/24 11:44 01/12/24 11:43 Nasal Cannula 3 01/12/24 08:20 Nasal Cannula 4 01/12/24 08:20 Nasal Cannula 3 01/12/24 07:30 Nasal Cannula 3 01/12/24 07:10 Coding Level of Care Code 78421 CRITICAL CARE 1ST 30-74M Diagnoses Hypovolemic shock R57.1 Severe sepsis A41.9; R65.20 Chronic kidney disease, stage III (moderate) N18.3 Complicated UTI (urinary tract infection) N39.0 Time Spent (min) 44
--- NOTE | 2024-01-12 16:31 | XCELERA ---
[id number] [id number]
[2024-01-12] MEDS: PLASMA-LYTE A 500 ML IV ONE (16:35)
--- NOTE | 2024-01-12 16:59 | Electrocardiogram Report ---
Test Reason : Blood Pressure : */* mmHG Vent. Rate : 91 BPM Atrial Rate : 91 BPM P-R Int : 196 ms QRS Dur : 100 ms QT Int : 378 ms P-R-T Axes : 25 -38 14 degrees QTcB Int : 464 ms Normal sinus rhythm Left axis deviation Nonspecific ST abnormality Abnormal ECG When compared with ECG of 11-Jan-2024 10:55, Minimal criteria for Anterior infarct are no longer Present Confirmed by Prosper Andersen ([id number]) on 01/12/2024 4:59:09 PM Referred By: Stef Encarnacion Confirmed By: Prosper Andersen
[2024-01-12 17:05] LABS: Albumin Level 3.1 gm/dl (3.4-5.0); BUN Creatinine Ratio 13.2 (10-20); Bilirubin,Total 0.7 mg/dl (0.2-1.0); Calcium 8.4 mg/dl (8.6-10.3); Creatinine Clr Calc Pharmacy 40.1 ml/min; Est GFR (Non-African American) 32.8 ml/min; Potassium 3.8 mmol/L (3.5-5.1); Total Protein 6.1 gm/dl (6.0-8.3)
[2024-01-12 17:11] LABS: Troponin I High Sensitivity 7.9 pg/ml (0-20)
--- NOTE | 2024-01-12 18:39 | Infectious Disease Consult ---
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 Treated with Ceftriaxone. Patient RTon 01/10 with N/V x 48 hours. In the ER laboratory studies were unremarkable CT AP negative for acute findings. C/F recurrence of b/l LE cellulitis. He was placed on Vancomycin and Ceftriaxone. Planned for discharge on 01/11 however became hypotensive and TF to ICU today. Today, WBC 6.3, Cr 1.4?1.9 UA 6-10 wbcs, Ucx in lab RECOMMEND: -Would check blood cultures given he is now pressor support -Check MRSA nares -Can expand Ceftriaxone to Zosyn to cover for psa as well Please page [facility] over the weekend Dr. Lemus will start service on Monday Rashida Watson MD Infectious Diseases Consultation Information This patient recommendation is based on a telemedicine consult request which was completed asynchronously through chart review and information provided by the primary physician. The patient was not seen or examined today. The evaluation is consultative in nature and all patient care and treatment decisions can either be accepted or rejected by the patient's primary hospital-based treating physician using their own independent medical judgment for their patient. Fermentation Operator contact information: Please call [facility] . (Phone Number For Physician Use Only) Time Spent Reviewing Chart: 31+ minutes History of Present Illness Reason for Consultation: Septic shock Requesting Physician: Dr. 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 Treated with Ceftriaxone. Patient RTon 01/10 with N/V x 48 hours. In the ER laboratory studies were unremarkable CT AP negative for acute findings. C/F recurrence of b/l LE cellulitis. He was placed on Vancomycin and Ceftriaxone. Planned for discharge on 01/11 however became hypotensive and TF to ICU today. Today, WBC 6.3, Cr 1.4?1.9 UA 6-10 wbcs, Ucx in lab Receiving levophed through port. Allergies Allergy/AdvReac Type Severity Reaction Status Date / Time gabapentin Allergy Intermediate Rash Verified 01/11/24 14:50 tramadol Allergy Intermediate Rash and Verified 01/11/24 14:50 itchiness hydrocodone Allergy Mild itchy Verified 01/11/24 14:50 oxycodone Allergy Mild itchy Verified 01/11/24 14:50 carbamazepine Allergy Unknown Unknown Verified 01/11/24 14:50 ciprofloxacin Allergy Unknown Unknown Verified 01/11/24 14:50 Home Medications Medication Instructions Recorded Confirmed Type lisinopril 10 1 tab PO QAM #0 tabs 08/31/12 01/11/24 History mg-hydrochlorothiazide 12.5 mg tablet pravastatin 20 mg tablet 20 mg PO HS ##0 02/28/16 01/11/24 History allopurinol 100 mg tablet 100 mg PO BID 90 days #180 tabs 12/22/21 01/11/24 Rx acetaminophen 500 mg tablet 1,000 mg PO Q8 PRN Pain 10/28/22 01/11/24 History (Tylenol Extra Strength) polyethylene glycol 3350 17 17 g PO DAILY PRN Constipation 01/06/23 01/11/24 History gram/dose oral powder (Miralax) pregabalin 150 mg capsule (Lyrica) 300 mg (2 x 150 mg) PO BID #360 08/16/23 01/11/24 Rx caps fluorometholone 0.1 % eye 1 drp OPB DAILY PRN Eye 01/03/24 01/11/24 History drops,suspension Inflammation enoxaparin 120 mg/0.8 mL 120 mg (0.8 mL) subcut Q12H 30 01/04/24 01/11/24 Rx subcutaneous syringe (Lovenox) days #48 mL cephalexin 500 mg capsule 500 mg PO Q6H 3 days #12 caps 01/09/24 01/11/24 Rx furosemide 40 mg tablet (Lasix) 40 mg PO DAILY PRN Edema #30 tabs 01/09/24 01/11/24 Rx potassium citrate 10 mEq (1,080 10 meq PO BID 01/11/24 01/11/24 History mg) tablet,extended release Patient History Medical History Osteoarthritis Surgical History History of left shoulder replacement History of right shoulder replacement History of total left knee replacement (TKR) History of total right knee replacement (TKR) with revision History of colonoscopy History of inguinal hernia repair History of cancer surgery Left side of neck resection + lymph node removal History of tooth extraction History of tonsillectomy and adenoidectomy History of sinus surgery History of cystoscopy History of cataract surgery bilateral History of back surgery L4-L5 with screws Family History Family/Other Diabetes Heart disease Nephrolithiasis Other No family history of adverse response to anesthesia Social History Smoking Status: Never smoker Second Hand Exposure: No; Do You Dip or Chew Tobacco: No; Hx Alcohol Use: No Hx Substance Use: No Preferred Language: Luxembourgish Communication Ability: Effective Acquisition Marketing Coordinator Required: No Beliefs That Will Affect Care: None Current Living Situation: Spouse current occupational status: retired Feels Safe at Home: Yes Seatbelt Use: always Assistive Devices: Cane, Walker and Wheelchair Results & Data Vital Signs (Past 12 Hours) Vital Signs Temp Pulse Pulse Resp BP BP BP 01/12/24 18:25 106/49 L 01/12/24 18:24 81 24 121/53 L 01/12/24 18:17 102/50 L 01/12/24 18:05 117/58 L 01/12/24 18:00 102/48 L 01/12/24 17:54 78 13 100/43 L 01/12/24 17:39 79 14 01/12/24 17:35 101/45 L 01/12/24 17:27 81 12 104/49 L 01/12/24 17:20 102/51 L 01/12/24 17:20 102/51 L 01/12/24 17:18 85 26 H 01/12/24 17:15 86 19 126/51 L 01/12/24 17:03 83 17 111/49 L 01/12/24 17:00 79 19 95/48 L 01/12/24 17:00 37 C 01/12/24 16:54 90 21 68/45 L 01/12/24 16:42 93 H 37 H 99/41 L 01/12/24 16:40 84/47 L 01/12/24 16:35 81/44 L 01/12/24 16:35 81/44 L 01/12/24 16:16 103/69 01/12/24 16:09 85 12 113/48 L 01/12/24 15:48 88 16 102/55 L 01/12/24 15:37 95/50 L 01/12/24 15:20 96/59 L 01/12/24 13:30 85 20 93/57 L 01/12/24 13:19 85 18 65/37 L 01/12/24 12:44 87 20 85/48 L 01/12/24 12:31 84 18 100/56 L 01/12/24 12:13 82 18 94/56 L 01/12/24 12:00 80 20 77/44 L 01/12/24 11:48 01/12/24 11:44 70/38 L 01/12/24 11:43 36.7 C 85 18 71/37 L 01/12/24 08:20 01/12/24 08:20 01/12/24 07:30 36.7 C 91 H 18 113/62 01/12/24 07:10 93 H Pulse Ox O2 Del Method O2 Flow Rate 01/12/24 18:25 01/12/24 18:24 95 01/12/24 18:17 01/12/24 18:05 01/12/24 18:00 01/12/24 17:54 93 01/12/24 17:39 93 01/12/24 17:35 01/12/24 17:27 94 01/12/24 17:20 01/12/24 17:20 01/12/24 17:18 95 01/12/24 17:15 93 01/12/24 17:03 93 01/12/24 17:00 94 01/12/24 17:00 01/12/24 16:54 95 01/12/24 16:42 96 01/12/24 16:40 01/12/24 16:35 01/12/24 16:35 01/12/24 16:16 01/12/24 16:09 94 01/12/24 15:48 95 01/12/24 15:37 01/12/24 15:20 01/12/24 13:30 95 Room Air 01/12/24 13:19 98 Nasal Cannula 3 01/12/24 12:44 96 Nasal Cannula 3 01/12/24 12:31 97 Nasal Cannula 97 01/12/24 12:13 Nasal Cannula 3 01/12/24 12:00 98 Nasal Cannula 3 01/12/24 11:48 94 Nasal Cannula 4 01/12/24 11:44 01/12/24 11:43 95 Nasal Cannula 3 01/12/24 08:20 Nasal Cannula 4 01/12/24 08:20 Nasal Cannula 3 01/12/24 07:30 94 Nasal Cannula 3 01/12/24 07:10 Medications Administered Current Inpatient Medications Acetaminophen (Acetaminophen 325 Mg Tab) 650 mg PO Q4H PRN PRN Reason: pain/fever Stop: 02/10/24 14:46 Allopurinol (Allopurinol 100 Mg Tab) 100 mg PO BID KELSY Stop: 02/10/24 20:59 Last Admin: 01/12/24 08:20 Dose: 100 mg Enoxaparin Sodium (Enoxaparin 150 Mg/Ml Syr) 135 mg SQ Q12 KELSY Stop: 02/10/24 20:59 Last Admin: 01/12/24 08:18 Dose: 135 mg Lisinopril/HCTZ (Lisinopril/Hctz 10/12.5mg Tab) 1 tab PO QAM KELSY Stop: 02/11/24 08:59 Last Admin: 01/12/24 08:19 Dose: 1 tab Ceftriaxone Sodium (Rocephin) 2,000 mg in 50 mls @ 100 mls/hr IV Q24H [facility] Stop: 01/18/24 15:59 Last Infusion: 01/12/24 17:28 Dose: Infused Vancomycin HCl 1,500 mg/ (Sodium Chloride) 530 mls @ 200 mls/hr IV Q24H [facility] Stop: 01/19/24 05:59 Last Infusion: 01/12/24 09:59 Dose: Infused Norepinephrine Bitartrate (Levophed/D5w) 4 mg in 250 mls @ 13.736 mls/hr IV .[id number] KELSY; Protocol Stop: 02/11/24 15:14 Last Titration: 01/12/24 16:35 Dose: 0.03 mcg/kg/min, 13.7 mls/hr Miscellaneous (Order Awaiting Action: Fluorometholone 0.1%) 1 each N/A QS [facility] Stop: 02/11/24 00:00 Last Admin: 01/12/24 15:45 Dose: Not Given Miscellaneous Information (Vancomycin Consult Active) 1 each N/A UD PRN PRN Reason: Consult Stop: 02/10/24 14:41 Ondansetron HCl (Ondansetron Inj 2 Mg/Ml 2 Ml Vial) 4 mg IV Q6H PRN PRN Reason: Nausea Stop: 02/10/24 14:46 Last Admin: 01/11/24 21:13 Dose: 4 mg Potassium Citrate (Potassium Citrate 10 Meq Tab) 10 meq PO BID [facility] Stop: 02/10/24 20:59 Last Admin: 01/12/24 08:19 Dose: 10 meq Pravastatin Sodium (Pravastatin Sod 20 Mg Tab) 20 mg PO HS [facility] Stop: 02/10/24 20:59 Last Admin: 01/11/24 21:07 Dose: 20 mg Pregabalin (Pregabalin 150 Mg Cap) 300 mg PO BID [facility] Stop: 02/10/24 20:59 Last Admin: 01/12/24 08:23 Dose: 300 mg
--- NOTE | 2024-01-12 22:14 | Hospitalist Progress Note ---
Date of Service January 12, 2024 Assessment & Plan (1) Hypovolemic shock: Plan: Concern over hypovolemic shock. Doubted this is septic shock given his cellultis which appears to be improving. HOwever, patient has not fully responded with 2 liter IV bolus. Patient will be transferred to the ICU for close monitoring as he reamined hypotensive and septic shock became more of a diagnosis. Patient may require vasopressors. (2) Bilateral cellulitis of lower leg: Plan: Assessment: 1. Nausea and vomiting x 48 hours. Appears to be resolving. Last emesis was 7[address] this morning[address] I will place patient on clear liquids. He has a reassuring CAT scan at this time of the abdomen pelvis. 2. Acute/subacute cellulitis lower extremities. It appears the left lower extremity is decompensated and significantly worse than it was prior to discharge. On placing the patient on IV vancomycin and IV Rocephin. 3. Hypomagnesemia. Replaced we will recheck in the morning. 4. Peripheral edema. The patient received a dose of IV Lasix in the ER. Will give no more Lasix given the recent acute kidney injury. 5. Status post acute kidney injury last week during admission. With a history of CKD stage III. Creatinine normal today monitor carefully. 6. History of pulmonary embolism. With failed Coumadin therapy. Patient is on Lovenox 1 mg/kg every 12 this has been ordered appropriately. Patient did have his morning dose at 9 AM today next dose due 9 PM today. 7. Right renal cyst possibly by CAT scan today. Recommending outpatient ultrasound for clarification. This should be done via the PCPs office. 8. Hypertension. Continue same home medications. 9. History of malignant melanoma. Currently on pembrolizumab. Is following with oncology. 10. Morbid obesity. 11. High clinical suspicion of obstructive sleep apnea with recommendation with short-term outpatient follow-up with primary care to arrange formal sleep study. If positive then remains untreated this will contribute to ongoing acute decompensation of right-sided heart failure, etc. Plan: As described above. Please refer to orders for further planning. Admission and Anticipated Discharge Date Admission Date: January 11, 2024 Subjective 78 yo male reports feeling fatigued and tired. Code purple was called as patient was feeling lightheaded on the chair. Patient was placed in bed and blood pressure was found to be in the 70s and 80s sytolically/ Patient did not lose consciousness. Review of Systems Review of Systems: All systems reviewed & are unremarkable except as noted in HPI & below Physical Exam Physical Exam: In General: In general is a 78-year-old male was alert and oriented x 3. Now in [facility]. HEENT: Normocephalic atraumatic NECK: Supple no rigidity no lymphadenopathy no thyromegaly no carotid bruits no JVD no masses. HEART: Regular rate and rhythm I do not appreciate any ectopy or rub. No murmur. LUNGS: Clear to auscultation bilaterally and anteriorly with no evidence of adventitious sounds/wheezes rales or rhonchi. ABDOMEN: Obese, soft nontender, no rebound, no peritoneal signs, positive bowel sounds, no appreciable organomegaly. EXTREMITIES: Intact, no peripheral cyanosis, clubbing. The patient has 1-2+ pitting edema bilaterally. Cellulitis appears much improved from what was debbi cribed. Admitting provider even looked at legs and agreed. NEUROLOGICAL: Cranial nerves II through XII are grossly intact with no focal deficit elicited upon examination. Results & Data Results & Data Vital Signs (Past 12 Hours) Vital Signs Temp Pulse Pulse Resp BP BP Pulse Ox 01/12/24 21:48 80 14 93 01/12/24 21:36 82 14 91 01/12/24 21:30 01/12/24 21:30 37.0 C 01/12/24 21:15 86 17 01/12/24 21:06 87 27 H 94 01/12/24 21:00 106/63 01/12/24 21:00 106/63 01/12/24 20:57 91 H 15 94 01/12/24 20:45 85 15 94 01/12/24 20:33 86 16 94 01/12/24 20:30 105/47 L 01/12/24 20:30 105/47 L 01/12/24 20:30 105/47 L 01/12/24 20:30 105/47 L 01/12/24 20:24 91 H 14 96 01/12/24 20:18 85 17 94 01/12/24 19:48 84 13 94 01/12/24 19:30 89/46 L 01/12/24 19:30 89/46 L 01/12/24 19:30 89/46 L 01/12/24 19:30 89/46 L 01/12/24 19:30 89/46 L 01/12/24 19:30 79 13 95 01/12/24 19:27 82 13 96 01/12/24 19:09 82 13 94 01/12/24 19:00 98/45 L 01/12/24 18:57 82 16 95 01/12/24 18:33 87 22 95 01/12/24 18:30 109/50 L 01/12/24 18:30 109/50 L 01/12/24 18:25 106/49 L 01/12/24 18:24 81 24 121/53 L 95 01/12/24 18:17 102/50 L 01/12/24 18:05 117/58 L 01/12/24 18:00 102/48 L 01/12/24 17:54 78 13 100/43 L 93 01/12/24 17:39 79 14 93 01/12/24 17:35 101/45 L 01/12/24 17:27 81 12 104/49 L 94 01/12/24 17:20 102/51 L 01/12/24 17:20 102/51 L 01/12/24 17:18 85 26 H 95 01/12/24 17:15 86 19 126/51 L 93 01/12/24 17:03 83 17 111/49 L 93 01/12/24 17:00 79 19 95/48 L 94 01/12/24 17:00 37 C 01/12/24 16:54 90 21 68/45 L 95 01/12/24 16:42 93 H 37 H 99/41 L 96 01/12/24 16:40 84/47 L 01/12/24 16:35 81/44 L 01/12/24 16:35 81/44 L 01/12/24 16:16 103/69 01/12/24 16:09 85 12 113/48 L 94 01/12/24 15:48 88 16 102/55 L 95 01/12/24 15:37 95/50 L 01/12/24 15:20 96/59 L 01/12/24 13:30 85 20 93/57 L 95 01/12/24 13:19 85 18 65/37 L 98 01/12/24 12:44 87 20 85/48 L 96 01/12/24 12:31 84 18 100/56 L 97 01/12/24 12:13 82 18 94/56 L 01/12/24 12:00 80 20 77/44 L 98 01/12/24 11:48 94 01/12/24 11:44 70/38 L 01/12/24 11:43 36.7 C 85 18 71/37 L 95 O2 Del Method O2 Flow Rate 01/12/24 21:48 01/12/24 21:36 01/12/24 21:30 Nasal Cannula 4 01/12/24 21:30 01/12/24 21:15 01/12/24 21:06 01/12/24 21:00 01/12/24 21:00 01/12/24 20:57 01/12/24 20:45 01/12/24 20:33 01/12/24 20:30 01/12/24 20:30 01/12/24 20:30 01/12/24 20:30 01/12/24 20:24 01/12/24 20:18 01/12/24 19:48 01/12/24 19:30 01/12/24 19:30 01/12/24 19:30 01/12/24 19:30 01/12/24 19:30 01/12/24 19:30 01/12/24 19:27 01/12/24 19:09 01/12/24 19:00 01/12/24 18:57 01/12/24 18:33 01/12/24 18:30 01/12/24 18:30 01/12/24 18:25 01/12/24 18:24 01/12/24 18:17 01/12/24 18:05 01/12/24 18:00 01/12/24 17:54 01/12/24 17:39 01/12/24 17:35 01/12/24 17:27 01/12/24 17:20 01/12/24 17:20 01/12/24 17:18 01/12/24 17:15 01/12/24 17:03 01/12/24 17:00 01/12/24 17:00 01/12/24 16:54 01/12/24 16:42 01/12/24 16:40 01/12/24 16:35 01/12/24 16:35 01/12/24 16:16 01/12/24 16:09 01/12/24 15:48 01/12/24 15:37 01/12/24 15:20 01/12/24 13:30 Room Air 01/12/24 13:19 Nasal Cannula 3 01/12/24 12:44 Nasal Cannula 3 01/12/24 12:31 Nasal Cannula 97 01/12/24 12:13 Nasal Cannula 3 01/12/24 12:00 Nasal Cannula 3 01/12/24 11:48 Nasal Cannula 4 01/12/24 11:44 01/12/24 11:43 Nasal Cannula 3 PG Care Time/CCT Total # of Minutes Spent Total Time Spent with Patient: Total time spent is greater than 50% in coordination of care (as documented) at patient's floor/unit and/or counseling patient: Critical Care Time: Yes Total Critical Care Time: 48 Plan is as discussed above. Please refer to orders for further planning. 48 minutes of critical care time spent in the management clinical coronation care of this patient today this critical care time spent independent of and in addition to any other time or critical care time any other practitioner today's date. Coding Level of Care Code 68737 SUB INP/OBS CARE 3/50MIN (25 - SIGNIFICANT, SEPARATELY IDENTIFIABLE ) Diagnoses Hypovolemic shock R57.1 Bilateral cellulitis of lower leg L03.116; L03.115 Additional Codes Critical Care Time - Critical Care Time: Yes ([id number]) Time Spent (min) 90
[2024-01-13 04:58] LABS: Basophils # (auto) 0.03 K/uL (0.00-0.20); Basophils % (auto) 0.5 %; Eosinophils # (auto) 0.48 K/uL (0.00-0.50); Eosinophils % (auto) 7.9 %; Hematocrit (blood only) 34.6 % (42.0-52.0); Hemoglobin 11.3 g/dl (14.0-18.0); Immature Granulocytes # (auto) 0.01 K/uL (0.01-0.20); Immature Granulocytes % (auto) 0.2 %; Lymphocytes # (auto) 1.84 K/uL (1.20-3.40); Lymphocytes % (auto) 30.5 %; Mean Corpuscular Hgb Conc 32.7 g/dL (32.0-36.0); Monocytes % (auto) 14.9 %; Neutrophils # (auto) 2.78 K/uL (1.40-6.50); Platelet Count 166 K/uL (130-400); RDW Coefficient of Variation 14.4 % (11.5-14.5); RDW Standard Deviation 51.4 fL (36.4-46.3); Red Blood Count 3.53 M/uL (4.70-6.10); White Blood Count 6.04 K/ul (4.8-10.8)
[2024-01-13 05:13] LABS: Albumin Globulin Ratio 1.1 (0.9-2); Albumin Level 3.1 gm/dl (3.4-5.0); BUN Creatinine Ratio 11.2 (10-20); Bilirubin,Total 0.7 mg/dl (0.2-1.0); Calcium 8.3 mg/dl (8.6-10.3); Est GFR (African American) 34.5 ml/min; Est GFR (Non-African American) 29.7 ml/min; Globulin 2.8 gm/dl (2.5-4.0); Magnesium 1.7 mg/dl (1.7-2.4); Phosphorus 3.5 mg/dl (2.5-4.9); Potassium 4.3 mmol/L (3.5-5.1); Total Protein 5.9 gm/dl (6.0-8.3)
[2024-01-13] MEDS: LIDOCAINE 2% JELLY 5 ML TUBE EXT ONE (07:21)
[2024-01-13] MEDS: ACETAMINOPHEN 325 MG TAB PO PRN (07:23)
[2024-01-13] MEDS: MAGNESIUM SULFATE / D5W 1 GM/100 ML BAG IV SCH (07:24)
--- NOTE | 2024-01-13 09:23 | Pharmacy Report ---
Pharmacy PK ABX Note - Date of Service January 13, 2024 - Assessment and Plan Assessment 01/12: Continues on vancomycin (day #3) + ceftriaxone. Requiring vasopressor support. SCr continues to trend up (1.48-->1.9-->2.06). 01/12/24: 78 year old M started on Vancomycin yesterday for treatment of bilateral lower extremity cellulitis. Mr. Maldonado was recently admitted here at [facility] and treated for LE Cellulitis with Rocephin 2 gm IV daily x 6 days. Discharged on 01/09/24 on Keflex. He came back yesterday for worsening cellulitis. He has history of CKD- stage 3 and morbid obesity. Increases risk for Vancomycin accumulation. Started yesterday on Vancomycin and Rocephin. Today is Day #2 of antimicrobial therapy. Plan Vancomycin * Random vancomycin level this AM, 15.5mcg/mL (~21.5hr level). Predicted to ach ieve ssAUC 854mg/L.hr which is supratherapeutic. Did receive this AM's dose. * Given rapidly changing SCr and vasopressor requirement, will hold the scheduled vancomycin regimen and obtain another random level tomorrow AM to guide further dosing. * Random level 8/11 AM. Pharmacy will continue to follow and will adjust dose/frequency as necessary. Thank you. Pharmacy has transitioned to AUC monitoring for vancomycin. AUC/SOSA is the preferred PK/PD target and is associated with decreased risk of nephrotoxicity compared to traditional trough targets.
[2024-01-13] MEDS: SODIUM CHLORIDE 0.9% 250 ML IV ONE (10:13)
--- NOTE | 2024-01-13 10:53 | Critical Care Progress Note ---
Date of Service January 13, 2024 Assessment & Plan (1) Hypovolemic shock: (2) Severe sepsis: (3) Chronic kidney disease, stage III (moderate): (4) Complicated UTI (urinary tract infection): Plan 78-year-old male with a history of melanoma, hypertension, PE and hyperlipidemia presenting with hypovolemic shock and signs of severe sepsis. Currently on low- dose Levophed via Port-A-Cath. Neurologic: No significant issues at present. No signs of delirium. Pulmonary: Patient requiring low-flow oxygen. Has a history of PE. Currently anticoagulated with Lovenox. Cardiovascular: Echo revealed a hyperdynamic EF. Troponins are negative. EKG negative as well. Gastrointestinal: Advance diet as tolerated. CT abdomen pelvis on admission without any acute findings. LFTs largely unremarkable. No clear cause for the patient's nausea and vomiting on presentation. Will check lipase and lactic acid. Renal: Follow urine output closely. See in place. Patient with mild ELISABETH. UA did show positive leuk esterase and WBCs. Await urine cultures. Infectious disease: Undifferentiated sepsis. Possibility of cellulitis in the lower extremities. Currently on vancomycin and Zosyn. UA was positive on admission, but no culture sent. Blood cultures and urine cultures pending. Hematologic: On full dose Lovenox for history of PE. Mild anemia which is close to his baseline. Normal platelet count. Endocrine: TSH unremarkable. Maintain euglycemia. Lines and tubes: Patient with Port-A-Cath. Using this for vasopressors. VTE prophylaxis: Full dose Lovenox CODE STATUS: Okay for CPR and defibrillation per hospitalist service. Does not want intubation. Family at bedside: None at bedside Disposition: ICU. I have personally spent 37 minutes of critical care time in the direct management of this patient. This is a life/limb threatening event. This includes time spent evaluating patient, direct bedside care, chart review, placing orders, interpretation of diagnostic studies, discussion with consultants, patient, and family members, as well as other required patient management activities. This time is exclusive of all separately billable procedures, and teaching time and separate from and in addition to any other critical care service time. Thank you for allowing us to participate in the care of this patient. Admission and Anticipated Discharge Date Admission Date: January 11, 2024 Subjective Remains on low-dose Levophed.. No significant shortness of breath. Remains on supplemental oxygen. Review of Systems Review of Systems: All systems reviewed & are unremarkable except as noted in HPI & below Physical Exam Physical Exam: Constitutional: Patient appears to be of their stated age. Patient is in no apparent distress. Patient is well-developed. Eyes: Pupils are equal round and reactive to light. Conjunctivae are normal. Anicteric sclera. Ears nose, mouth and throat: Mallampati class 2. Normal posterior oropharynx. Uvula is midline. Neck: Trachea is midline. Visual inspection is normal. Respiratory: Clear to auscultation bilaterally. No use of accessory muscles. No significant clubbing noted. Cardiovascular: Regular rate and rhythm. No murmurs. No edema. Gastrointestinal: Normal bowel sounds, soft, nontender and nondistended. No hepatosplenomegaly noted. Musculoskeletal: No cyanosis. Patient is able to move all extremities. Strength is 5 out of 5 in the upper and lower extremities. Skin: Bilateral lower extremity redness around the ankles up to the shins. Neurologic: No obvious focal neurological deficits seen. Psychiatric: Alert and oriented x3 with a euthymic affect. Results & Data Results & Data Vital Signs (Past 12 Hours) Vital Signs Temp Pulse Resp BP Pulse Ox O2 Del Method O2 Flow Rate 01/13/24 09:15 78 18 109/49 L 91 01/13/24 09:00 86 15 94 01/13/24 08:54 80/47 L 01/13/24 08:54 80/47 L 01/13/24 08:54 80 16 93 01/13/24 08:51 98/42 L 01/13/24 08:51 98/42 L 01/13/24 08:33 89 88/44 L 01/13/24 08:00 89 86/40 L 01/13/24 08:00 86/40 L 01/13/24 08:00 86/40 L 01/13/24 08:00 37.1 C 01/13/24 08:00 90 01/13/24 08:00 Nasal Cannula 4 01/13/24 07:32 92 H 106/57 L 01/13/24 07:00 96 H 120/73 01/13/24 06:45 90 15 92 01/13/24 06:00 86 13 92 01/13/24 06:00 107/59 L 01/13/24 06:00 107/59 L 08/10/24 06:00 107/59 L 01/13/24 05:57 86 15 92 01/13/24 05:36 92 H 16 92 01/13/24 05:27 88 15 93 01/13/24 05:00 128/57 L 01/13/24 05:00 93 H 17 92 01/13/24 04:48 88 16 92 01/13/24 04:27 88 16 94 01/13/24 04:06 89 18 92 01/13/24 04:00 36.9 C 01/13/24 03:45 87 23 93 01/13/24 03:30 129/54 L 01/13/24 03:30 129/54 L 01/13/24 03:27 83 16 93 01/13/24 03:15 86 22 93 01/13/24 03:00 110/52 L 01/13/24 03:00 110/52 L 01/13/24 02:30 107/47 L 01/13/24 02:30 107/47 L 01/13/24 02:27 81 14 93 01/13/24 02:15 82 15 92 01/13/24 02:00 89 16 01/13/24 02:00 100/49 L 01/13/24 01:45 80 15 92 01/13/24 01:15 85 20 93 01/13/24 01:12 85 15 93 01/13/24 00:30 85 15 01/13/24 00:30 113/46 L 01/13/24 00:30 113/46 L 01/13/24 00:21 84 16 93 01/13/24 00:00 83 14 01/13/24 00:00 37.1 C 01/13/24 00:00 85 01/12/24 23:45 85 18 93 01/12/24 23:30 88 20 01/12/24 23:30 117/54 L 01/12/24 23:30 117/54 L 01/12/24 23:30 117/54 L 01/12/24 23:24 85 15 92 01/12/24 23:00 102/50 L 01/12/24 23:00 84 14 01/12/24 22:57 83 13 92 Coding Level of Care Code 62694 CRITICAL CARE 1ST 30-74M Diagnoses Hypovolemic shock R57.1 Severe sepsis A41.9; R65.20 Chronic kidney disease, stage III (moderate) N18.3 Complicated UTI (urinary tract infection) N39.0
[2024-01-13] MEDS ORDERED: HYDROmorphone INJ 0.5 MG/0.5 ML SYR IV STA (12:26)
[2024-01-13] MEDS: PLASMA-LYTE A 250 ML IV ONE (12:33)
[2024-01-13] MEDS: HYDROmorphone INJ 0.5 MG/0.5 ML SYR IV STA (16:31)
--- NOTE | 2024-01-13 18:53 | XRay Report ---
XR hip SALIMA 2v w pelvis CLINICAL HISTORY: Bilateral hip pain. COMPARISON STUDY: CT of the abdomen and pelvis January 11, 2024. FINDINGS: An L4-S1 decompression and fusion is incidentally noted. Sacroiliac joints and symphysis pu bis are intact. There are no acute fractures within the pelvis or hips. No osseous lesions are identi fied. There is no evidence for avascular necrosis of the femoral heads. There is mild bilateral hip o steophytosis. Joint spaces are preserved. IMPRESSION: 1. No fractures within the pelvis or hips. 2. Mild degenerative changes within the hips. ACT 112: Negative or not required by law. Electronically signed by: Nino Oakes M.D. 01/13/2024 6:52 PM
--- NOTE | 2024-01-13 22:49 | Hospitalist Progress Note ---
Date of Service January 13, 2024 Assessment & Plan (1) Hypovolemic shock: Plan: Concern over hypovolemic shock. Doubted this is septic shock given his cellultis which appears to be improving. However, patient has not fully responded with 2 liter IV bolus. Patient in the ICU. Patient now requiring vasopressors. Patient source may be a UTI in addition to his cellulitis UA was postive though no bacteria seen. bal obtain xrays of his pelvix (2) Bilateral cellulitis of lower leg: Plan: Assessment: 1. Nausea and vomiting x 48 hours. Appears to be resolving. Last emesis was 7[address] I will place patient on clear liquids. He has a reassuring CAT scan at this time of the abdomen pelvis. 2. Acute/subacute cellulitis lower extremities. It appears the left lower extremity is decompensated and significantly worse than it was prior to discharge. On placing the patient on IV vancomycin and IV Rocephin. 3. Hypomagnesemia. Replaced we will recheck in the morning. 4. Peripheral edema. The patient received a dose of IV Lasix in the ER. Will give no more Lasix given the recent acute kidney injury. 5. Status post acute kidney injury last week during admission. With a history of CKD stage III. Creatinine normal today monitor carefully. 6. History of pulmonary embolism. With failed Coumadin therapy. Patient is on Lovenox 1 mg/kg every 12 this has been ordered appropriately. Patient did have his morning dose at 9 AM today next dose due 9 PM today. 7. Right renal cyst possibly by CAT scan today. Recommending outpatient ultrasound for clarification. This should be done via the PCPs office. 8. Hypertension. Continue same home medications. 9. History of malignant melanoma. Currently on pembrolizumab. Is following with oncology. 10. Morbid obesity. 11. High clinical suspicion of obstructive sleep apnea with recommendation with short-term outpatient follow-up with primary care to arrange formal sleep study. If positive then remains untreated this will contribute to ongoing acute decompensation of right-sided heart failure, etc. Plan: As described above. Please refer to orders for further planning. Admission and Anticipated Discharge Date Admission Date: January 11, 2024 Subjective 78 yo male reports no new symptoms. He contiues to have bilateral "hip" pain but points towards his bilateral trochanteric bursa region. Review of Systems Review of Systems: All systems reviewed & are unremarkable except as noted in HPI & below Physical Exam Physical Exam: In General: In general is a 78-year-old male was alert and oriented x 3. HEENT: Normocephalic atraumatic NECK: Supple no rigidity no lymphadenopathy no thyromegaly no carotid bruits no JVD no masses. HEART: Regular rate and rhythm I do not appreciate any ectopy or rub. No murmur. LUNGS: Clear to auscultation bilaterally and anteriorly with no evidence of adventitious sounds/wheezes rales or rhonchi. ABDOMEN: Obese, soft nontender, no rebound, no peritoneal signs, positive bowel sounds, no appreciable organomegaly. EXTREMITIES: Intact, no peripheral cyanosis, clubbing. The patient has 1-2+ pitting edema bilaterally. Cellulitis appears much improved from what was described. Admitting provider even looked at legs and agreed. NEUROLOGICAL: Cranial nerves II through XII are grossly intact with no focal deficit elicited upon examination. Results & Data Results & Data Vital Signs (Past 12 Hours) Vital Signs Temp Pulse Resp BP Pulse Ox O2 Del Method O2 Flow Rate 01/13/24 20:00 37 C 01/13/24 19:09 93 H 24 94 01/13/24 19:00 108/68 01/13/24 17:02 104/50 L 01/13/24 17:02 104/50 L 01/13/24 16:54 93 H 19 96 01/13/24 16:45 90/48 L 01/13/24 16:42 90 23 75 L 01/13/24 16:31 113/52 L 01/13/24 16:31 113/52 L 01/13/24 16:27 82 17 95 01/13/24 16:18 94/57 L 01/13/24 16:18 94/57 L 01/13/24 16:15 68/51 L 01/13/24 16:09 84 17 90 01/13/24 16:06 82 14 92 01/13/24 16:01 107/50 L 01/13/24 16:01 82 17 107/50 L 01/13/24 16:00 36.6 C 01/13/24 15:24 76 01/13/24 15:15 123/55 L 01/13/24 15:15 123/55 L 01/13/24 15:01 80 11 L 113/48 L 01/13/24 14:45 118/55 L 01/13/24 14:31 76 113/50 L 01/13/24 14:16 135/58 L 01/13/24 14:16 135/58 L 01/13/24 14:01 72 20 113/56 L 01/13/24 13:46 75 110/50 L 01/13/24 13:30 74 19 93 01/13/24 13:30 109/51 L 01/13/24 13:16 102/54 L 01/13/24 13:16 102/54 L 01/13/24 13:16 102/54 L 01/13/24 13:00 100/47 L 01/13/24 12:48 76 15 97 01/13/24 12:45 73 22 97 01/13/24 12:45 111/45 L 01/13/24 12:45 111/45 L 01/13/24 12:45 111/45 L 01/13/24 12:31 82 21 96/43 L 01/13/24 12:15 106/46 L 01/13/24 12:15 106/46 L 01/13/24 12:15 81 106/46 L 01/13/24 12:01 96/45 L 01/13/24 12:01 76 22 96/45 L 01/13/24 12:00 36.8 C 01/13/24 11:30 83 93/50 L 01/13/24 11:15 101/43 L 01/13/24 11:00 87 12 96 Nasal Cannula 4 01/13/24 10:51 73 16 94 PG Care Time/CCT Total # of Minutes Spent Total Time Spent with Patient: Total time spent is greater than 50% in coordination of care (as documented) at patient's floor/unit and/or counseling patient: Coding Level of Care Code 70171 SUB INP/OBS CARE 3/50MIN Diagnoses Hypovolemic shock R57.1 Bilateral cellulitis of lower leg L03.116; L03.115
[2024-01-14 04:52] LABS: Basophils # (auto) 0.08 K/uL (0.00-0.20); Basophils % (auto) 1.3 %; Eosinophils # (auto) 0.66 K/uL (0.00-0.50); Hematocrit (blood only) 35.2 % (42.0-52.0); Immature Granulocytes # (auto) 0.02 K/uL (0.01-0.20); Immature Granulocytes % (auto) 0.3 %; Lymphocytes # (auto) 1.67 K/uL (1.20-3.40); Lymphocytes % (auto) 27.9 %; Mean Corpuscular Hemoglobin 33.1 pg (25.0-34.0); Mean Corpuscular Hgb Conc 34.1 g/dL (32.0-36.0); Mean Corpuscular Volume 97.2 fL (80.0-100.0); Mean Platelet Volume 9.4 fL (9.4-12.4); Monocytes # (auto) 0.97 K/uL (0.11-0.59); Monocytes % (auto) 16.2 %; Neutrophils # (auto) 2.58 K/uL (1.40-6.50); Neutrophils % (auto) 43.3 %; Platelet Count 166 K/uL (130-400); RDW Coefficient of Variation 14.2 % (11.5-14.5); RDW Standard Deviation 50.9 fL (36.4-46.3); Red Blood Count 3.62 M/uL (4.70-6.10); White Blood Count 5.98 K/ul (4.8-10.8)
[2024-01-14 05:11] LABS: BUN Creatinine Ratio 11.6 (10-20); Calcium 8.5 mg/dl (8.6-10.3); Creatinine Clr Calc Pharmacy 37.8 ml/min; Est GFR (African American) 34.3 ml/min; Est GFR (Non-African American) 29.6 ml/min; Phosphorus 3.5 mg/dl (2.5-4.9); Potassium 3.9 mmol/L (3.5-5.1)
--- NOTE | 2024-01-14 10:34 | Critical Care Progress Note ---
Date of Service January 14, 2024 Assessment & Plan (1) Hypovolemic shock: (2) Severe sepsis: (3) Chronic kidney disease, stage III (moderate): (4) Complicated UTI (urinary tract infection): (5) Acute kidney injury superimposed on CKD: Plan 78-year-old male with a history of melanoma, hypertension, PE and hyperlipidemia presenting with hypovolemic shock and signs of severe sepsis. Currently on low- dose Levophed via Port-A-Cath. Neurologic: No significant issues at present. No signs of delirium. Pulmonary: Patient requiring low-flow oxygen. Has a history of PE. Currently anticoagulated with Lovenox. Cardiovascular: Echo revealed a hyperdynamic EF. Troponins are negative. EKG negative as well. Weaning Levophed as able. Maintain maps above 65 mmHg. Gastrointestinal: Advance diet as tolerated. CT abdomen pelvis on admission without any acute findings. LFTs largely unremarkable. No clear cause for the patient's nausea and vomiting on presentation. Lipase and lactate normal. Advance diet to full liquids at this time. Heart healthy. Renal: Follow urine output closely. See in place. Patient with ongoing mild ELISABETH. Nephrology consult placed. UA did show positive leuk esterase and WBCs. Urine culture is unremarkable. Infectious disease: Undifferentiated sepsis. Possibility of cellulitis in the lower extremities. Transition from vancomycin to daptomycin. Continue ceftriaxone. UA was positive on admission, but no culture sent. Blood and urine cultures negative to date. Hematologic: On full dose Lovenox for history of PE. Mild anemia which is close to his baseline. Normal platelet count. Endocrine: TSH unremarkable. Maintain euglycemia. Lines and tubes: Patient with Port-A-Cath. Using this for vasopressors. VTE prophylaxis: Full dose Lovenox CODE STATUS: Okay for CPR and defibrillation per hospitalist service. Does not want intubation. Family at bedside: None at bedside Disposition: ICU. I have personally spent 38 minutes of critical care time in the direct management of this patient. This is a life/limb threatening event. This includes time spent evaluating patient, direct bedside care, chart review, placing orders, interpretation of diagnostic studies, discussion with consultants, patient, and family members, as well as other required patient management activities. This time is exclusive of all separately billable procedures, and teaching time and separate from and in addition to any other critical care service time. Thank you for allowing us to participate in the care of this patient. Admission and Anticipated Discharge Date Admission Date: January 11, 2024 Subjective Patient seen examined. Feeling about the same as yesterday. Urine output remains poor. Sitting up in the chair. Low-dose Levophed infusing. Review of Systems Review of Systems: All systems reviewed & are unremarkable except as noted in HPI & below Physical Exam Physical Exam: Constitutional: Patient appears to be of their stated age. Patient is in no apparent distress. Patient is well-developed. Eyes: Pupils are equal round and reactive to light. Conjunctivae are normal. Anicteric sclera. Ears nose, mouth and throat: Mallampati class 2. Normal posterior oropharynx. Uvula is midline. Neck: Trachea is midline. Visual inspection is normal. Respiratory: Clear to auscultation bilaterally. No use of accessory muscles. No significant clubbing noted. Cardiovascular: Regular rate and rhythm. No murmurs. No edema. Gastrointestinal: Normal bowel sounds, soft, nontender and nondistended. No hepatosplenomegaly noted. Musculoskeletal: No cyanosis. Patient is able to move all extremities. Strength is 5 out of 5 in the upper and lower extremities. Skin: Bilateral lower extremity redness around the ankles up to the shins. Neurologic: No obvious focal neurological deficits seen. Psychiatric: Alert and oriented x3 with a euthymic affect. Results & Data Results & Data Vital Signs (Past 12 Hours) Vital Signs Temp Pulse Resp BP Pulse Ox O2 Del Method O2 Flow Rate 01/14/24 08:46 100/56 L 01/14/24 08:42 81 13 96 01/14/24 08:30 82 99/46 L 01/14/24 08:30 99/46 L 01/14/24 08:30 99/46 L 01/14/24 08:30 99/46 L 01/14/24 08:16 81 15 107/51 L 94 Room Air 01/14/24 08:16 107/51 L 01/14/24 08:16 107/51 L 01/14/24 08:02 53/29 L 01/14/24 08:01 59/40 L 01/14/24 08:00 37.1 C 01/14/24 08:00 86 01/14/24 08:00 Nasal Cannula 3 01/14/24 07:57 97 H 18 01/14/24 07:31 102/54 L 01/14/24 07:31 102/54 L 01/14/24 07:31 102/54 L 01/14/24 07:16 112/65 01/14/24 07:16 112/65 01/14/24 07:00 102/56 L 01/14/24 07:00 102/56 L 01/14/24 07:00 102/56 L 01/14/24 07:00 102/56 L 01/14/24 07:00 102/56 L 01/14/24 06:30 109/54 L 01/14/24 06:30 91 H 15 95 01/14/24 06:00 93 H 23 92 01/14/24 05:00 151/64 H 01/14/24 05:00 87 12 96 01/14/24 04:06 92 H 16 91 01/14/24 04:00 36.7 C 01/14/24 03:06 88 15 97 01/14/24 03:00 133/57 L 01/14/24 02:54 88 21 90 01/14/24 02:16 130/59 L 01/14/24 02:12 84 12 97 01/14/24 02:00 99/66 L 01/14/24 01:51 93 H 13 95 01/14/24 01:00 117/51 L 01/14/24 01:00 79 16 96 01/14/24 00:15 119/56 L 01/14/24 00:09 82 16 90 01/14/24 00:00 36.8 C 01/14/24 00:00 83 01/13/24 23:15 81 13 93 01/13/24 23:15 104/50 L Coding Level of Care Code 82373 CRITICAL CARE 1ST 30-74M Diagnoses Hypovolemic shock R57.1 Severe sepsis A41.9; R65.20 Chronic kidney disease, stage III (moderate) N18.3 Complicated UTI (urinary tract infection) N39.0 Acute kidney injury superimposed on CKD N17.9; N18.9
[2024-01-14] MEDS: MIDODRINE HCL 2.5 MG TAB PO SCH (11:30)
[2024-01-14] MEDS: DAPTOmycin 375 MG in SYRINGE 0 ML IV SCH (11:31)
--- NOTE | 2024-01-14 11:58 | Nephrology Progress Note ---
Date of Service January 14, 2024 Assessment & Plan (1) Acute kidney injury superimposed on CKD: (2) Severe sepsis: (3) Bilateral cellulitis of lower leg: (4) Hypomagnesemia: Admission and Anticipated Discharge Date Admission Date: January 11, 2024 Timothy Kinsey was seen and evaluated this morning. He was sitting up in bedside chair, seemed comfortable, denied any symptoms except feeling cold. Denies shortness of breath. Blood pressure relatively low but slightly improved. Kidney function staying relatively stable with recent acute kidney injury. Electrolyte acceptable. Decent urine output. Review of Systems Review of Systems: Detailed review of system otherwise unremarkable. Physical Exam Constitutional: WD/WN, vitals as above + ill appearing and + obese; no acute distress Neck: normal visual inspection Respiratory: no respiratory distress Auscultation: + diminished lung sounds Cardiovascular: Rate/Rhythm: regular rate and regular rhythm Extremities: no edema Skin: + erythema Neurologic: no focal motor deficits and not confused Psychiatric: Orientation: alert and oriented x 3 Results & Data Vital Signs (Past 12 Hours) Vital Signs Temp Pulse Resp BP Pulse Ox O2 Del Method O2 Flow Rate 01/14/24 10:37 96 Nasal Cannula 2 01/14/24 08:46 100/56 L 01/14/24 08:42 81 13 96 01/14/24 08:30 82 99/46 L 01/14/24 08:30 99/46 L 01/14/24 08:30 99/46 L 01/14/24 08:30 99/46 L 01/14/24 08:16 81 15 107/51 L 94 Room Air 01/14/24 08:16 107/51 L 01/14/24 08:16 107/51 L 01/14/24 08:02 53/29 L 01/14/24 08:01 59/40 L 01/14/24 08:00 37.1 C 01/14/24 08:00 86 01/14/24 08:00 Nasal Cannula 3 01/14/24 07:57 97 H 18 01/14/24 07:31 102/54 L 01/14/24 07:31 102/54 L 01/14/24 07:31 102/54 L 01/14/24 07:16 112/65 01/14/24 07:16 112/65 01/14/24 07:00 102/56 L 01/14/24 07:00 102/56 L 01/14/24 07:00 102/56 L 01/14/24 07:00 102/56 L 01/14/24 07:00 102/56 L 01/14/24 06:30 109/54 L 01/14/24 06:30 91 H 15 95 01/14/24 06:00 93 H 23 92 01/14/24 05:00 151/64 H 01/14/24 05:00 87 12 96 01/14/24 04:06 92 H 16 91 01/14/24 04:00 36.7 C 01/14/24 03:06 88 15 97 01/14/24 03:00 133/57 L 01/14/24 02:54 88 21 90 01/14/24 02:16 130/59 L 01/14/24 02:12 84 12 97 01/14/24 02:00 99/66 L 01/14/24 01:51 93 H 13 95 01/14/24 01:00 117/51 L 01/14/24 01:00 79 16 96 01/14/24 00:15 119/56 L 01/14/24 00:09 82 16 90 01/14/24 00:00 36.8 C 01/14/24 00:00 83 PG Care Time/CCT Total # of Minutes Spent Total Time Spent with Patient: Total time spent is greater than 50% in coordination of care (as documented) at patient's floor/unit and/or counseling patient: Coding Diagnoses Acute kidney injury superimposed on CKD N17.9; N18.9 Severe sepsis A41.9; R65.20 Bilateral cellulitis of lower leg L03.116; L03.115 Hypomagnesemia E83.42
--- NOTE | 2024-01-14 12:13 | Nephrology Consultation ---
Date of Consultation January 14, 2024 Assessment & Plan (1) Acute kidney injury superimposed on CKD: (2) Severe sepsis: (3) Vomiting: (4) Bilateral cellulitis of lower leg: Plan 78-year-old gentleman with history of stage IIIa CKD, baseline creatinine 1.3 mg/dl , admitted to the hospital with severe sepsis with nausea, vomiting and worsening bilateral lower extremity cellulitis. Blood and urine cultures so far negative. On daptomycin and ceftriaxone. Imaging negative for postrenal obstruction. Acute kidney injury most likely hemodynamically mediated with profound hypotension with sepsis as well as IV contrast exposure. -- Continue hemodynamic support, keep in positive balance, continue to monitor, kidney function, electrolyte, intake and output. --Expect kidney function to stabilize with improvement in blood pressure --Continue to hold diuretics, KIERAN inhibitor or ARB Thank you for allowing me to participate in your patient's care. It was a pleasure to see Tio. History of Present Illness Reason for Consultation: ELISABETH, Sepsis Attending Physician: Bishnu Hogan History of Present Illness Mr. Tio Maldonado is a 78 year-old male with stage 3 A CKD, hypertension, history of malignant melanoma on treatment with chemotherapy admitted to the hospital with severe sepsis and worsening bilateral lower extremity cellulitis. Nephrology consult requested for management of acute kidney injury. EMR records are reviewed in detail during patient's visit. Tio was initially admitted to the hospital from 01/03/24 to 01/09/2024 after he had outpatient CTA chest for evaluation of ALVAREZ revealed both chronic nonocclusive and partially calcified emboli within the right lower lobe segm ental pulmonary arteries and an occluded subsegmental branch within the right lower lobe suggestive of acute pulmonary embolus. It was considered to be a failure of warfarin which he was on and switched to Lovenox. During that hospitalization he was also noted to have bilateral lower extremity cellulitis and treated with vancomycin and ceftriaxone. He was discharged on 01/09/24 but readmitted on 01/11/2024 with nausea, vomiting and worsening bilateral lower extremity cellulitis. He was noted to be significantly hypotensive with lowest systolic blood pressure 53/29 and required pressor support. Blood and urine cultures so far negative. Blood pressure currently slightly improved, still on Levophed and midodrine. Clinically he is feeling better, nausea, vomiting resolved. He was continued on daptomycin and ceftriaxone for lower extremity cellulitis. On 01/11/[address] abdomen and pelvis with IV contrast which was negative for any postrenal obstruction or significant intra-abdominal pathology. On admission kidney function was stable at baseline with creatinine 1.2 mg/dl which worsened over last 3 days and creatinine over last 2 days staying around 2.1-2.2 mg/dl. Has been having decent urine output. Has history of stage IIIa CKD, baseline creatinine ~1.3 mg/dL. b/l cr around 1.3 mg/dl attributed to microvascular disease, has been following with Dr. Wilder. 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 Overall he reports feeling better this morning. Reports chills but no nausea or vomiting. Tolerating clear liquid. Allergies Allergy/AdvReac Type Severity Reaction Status Date / Time gabapentin Allergy Intermediate Rash Verified 01/11/24 14:50 tramadol Allergy Intermediate Rash and Verified 01/11/24 14:50 itchiness hydrocodone Allergy Mild itchy Verified 01/11/24 14:50 oxycodone Allergy Mild itchy Verified 01/11/24 14:50 carbamazepine Allergy Unknown Unknown Verified 01/11/24 14:50 ciprofloxacin Allergy Unknown Unknown Verified 01/11/24 14:50 Home Medications Medication Instructions Recorded Confirmed Type lisinopril 10 1 tab PO QAM #0 tabs 08/31/12 01/11/24 History mg-hydrochlorothiazide 12.5 mg tablet pravastatin 20 mg tablet 20 mg PO HS ##0 02/28/16 01/11/24 History allopurinol 100 mg tablet 100 mg PO BID 90 days #180 tabs 12/22/21 01/11/24 Rx acetaminophen 500 mg tablet 1,000 mg PO Q8 PRN Pain 10/28/22 01/11/24 History (Tylenol Extra Strength) polyethylene glycol 3350 17 17 g PO DAILY PRN Constipation 01/06/23 01/11/24 History gram/dose oral powder (Miralax) pregabalin 150 mg capsule (Lyrica) 300 mg (2 x 150 mg) PO BID #360 08/16/23 01/11/24 Rx caps fluorometholone 0.1 % eye 1 drp OPB DAILY PRN Eye 01/03/24 01/11/24 History drops,suspension Inflammation enoxaparin 120 mg/0.8 mL 120 mg (0.8 mL) subcut Q12H 30 01/04/24 01/11/24 Rx subcutaneous syringe (Lovenox) days #48 mL cephalexin 500 mg capsule 500 mg PO Q6H 3 days #12 caps 01/09/24 01/11/24 Rx furosemide 40 mg tablet (Lasix) 40 mg PO DAILY PRN Edema #30 tabs 01/09/24 01/11/24 Rx potassium citrate 10 mEq (1,080 10 meq PO BID 01/11/24 01/11/24 History mg) tablet,extended release Patient History Medical History Osteoarthritis Surgical History History of left shoulder replacement History of right shoulder replacement History of total left knee replacement (TKR) History of total right knee replacement (TKR) with revision History of colonoscopy History of inguinal hernia repair History of cancer surgery Left side of neck resection + lymph node removal History of tooth extraction History of tonsillectomy and adenoidectomy History of sinus surgery History of cystoscopy History of cataract surgery bilateral History of back surgery L4-L5 with screws Family History Family/Other Diabetes Heart disease Nephrolithiasis Other No family history of adverse response to anesthesia Social History Smoking Status: Never smoker Second Hand Exposure: No; Do You Dip or Chew Tobacco: No; Hx Alcohol Use: No Hx Substance Use: No Preferred Language: Syriac Communication Ability: Effective Email Producer Required: No Beliefs That Will Affect Care: None Current Living Situation: Spouse current occupational status: retired Feels Safe at Home: Yes Seatbelt Use: always Assistive Devices: Cane, Walker and Wheelchair Review of Systems Review of Systems: Detailed review of system was done and pertinent positives and negatives are mentioned above. Physical Exam Constitutional: WD/WN, vitals as above no acute distress Eyes: + anicteric sclerae Respiratory: no respiratory distress Auscultation: lungs clear to auscultation bilaterally Cardiovascular: Rate/Rhythm: regular rate and regular rhythm Heart Sounds: normal S1 and normal S2 Extremities: no edema Gastrointestinal (Abdomen): Inspection/Auscultation: abdomen normal to inspection Musculoskeletal: Extremities: extremities normal to inspection Skin: + dry skin and + erythema; no jaundice Neurologic: no focal motor deficits and not confused Psychiatric: Orientation: alert and oriented x 3 Affect: euthymic affect Results & Data Vital Signs (Past 12 Hours) Vital Signs Temp Pulse Resp BP Pulse Ox O2 Del Method O2 Flow Rate 01/14/24 10:37 96 Nasal Cannula 2 01/14/24 08:46 100/56 L 01/14/24 08:42 81 13 96 01/14/24 08:30 82 99/46 L 01/14/24 08:30 99/46 L 01/14/24 08:30 99/46 L 01/14/24 08:30 99/46 L 01/14/24 08:16 81 15 107/51 L 94 Room Air 01/14/24 08:16 107/51 L 01/14/24 08:16 107/51 L 01/14/24 08:02 53/29 L 01/14/24 08:01 59/40 L 01/14/24 08:00 37.1 C 01/14/24 08:00 86 01/14/24 08:00 Nasal Cannula 3 01/14/24 07:57 97 H 18 01/14/24 07:31 102/54 L 01/14/24 07:31 102/54 L 01/14/24 07:31 102/54 L 01/14/24 07:16 112/65 01/14/24 07:16 112/65 01/14/24 07:00 102/56 L 01/14/24 07:00 102/56 L 01/14/24 07:00 102/56 L 01/14/24 07:00 102/56 L 01/14/24 07:00 102/56 L 01/14/24 06:30 109/54 L 01/14/24 06:30 91 H 15 95 01/14/24 06:00 93 H 23 92 01/14/24 05:00 151/64 H 01/14/24 05:00 87 12 96 01/14/24 04:06 92 H 16 91 01/14/24 04:00 36.7 C 01/14/24 03:06 88 15 97 01/14/24 03:00 133/57 L 01/14/24 02:54 88 21 90 01/14/24 02:16 130/59 L 01/14/24 02:12 84 12 97 01/14/24 02:00 99/66 L 01/14/24 01:51 93 H 13 95 01/14/24 01:00 117/51 L 01/14/24 01:00 79 16 96 01/14/24 00:15 119/56 L 01/14/24 00:09 82 16 90 PG Care Time/CCT Total # of Minutes Spent Total Time Spent with Patient: Total time spent is greater than 50% in coordination of care (as documented) at patient's floor/unit and/or counseling patient: Coding Level of Care Code 82122 INT INP/OBS CARE 3/75MIN Diagnoses Acute kidney injury superimposed on CKD N17.9; N18.9 Severe sepsis A41.9; R65.20 Vomiting R11.10 Bilateral cellulitis of lower leg L03.116; L03.115
--- NOTE | 2024-01-14 21:10 | Hospitalist Progress Note ---
Date of Service January 14, 2024 Assessment & Plan (1) Hypovolemic shock: Plan: Initially concerned over hypovolemic shock, but as the picture clears this is more likely septic shock Transferred to the ICU on 01/11 Patient now requiring vasopressors despite fluid resuscitation Patient source may be a UTI in addition to his cellulitis UA was positive though no bacteria seen. no culture sent. repeat urine specimen has no growth. Xray of his pelvis was negative. Cellulitis appears to be doing better. now on daptomycin and ceftriaxone. (2) Bilateral cellulitis of lower leg: Plan: Assessment: 1. Nausea and vomiting x 48 hours. Appears to be resolving. Last emesis was 7[address] I will place patient on clear liquids. He has a reassuring CAT scan at this time of the abdomen pelvis. 2. Acute/subacute cellulitis lower extremities. It appears the left lower extremity is decompensated and significantly worse than it was prior to discharge. On placing the patient on IV vancomycin and IV Rocephin. 3. Hypomagnesemia. Replaced we will recheck in the morning. 4. Peripheral edema. The patient received a dose of IV Lasix in the ER. Will give no more Lasix given the recent acute kidney injury. 5. Status post acute kidney injury last week during admission. With a history of CKD stage III. Creatinine normal today monitor carefully. 6. History of pulmonary embolism. With failed Coumadin therapy. Patient is on Lovenox 1 mg/kg every 12 this has been ordered appropriately. Patient did have his morning dose at 9 AM today next dose due 9 PM today. 7. Right renal cyst possibly by CAT scan today. Recommending outpatient ultrasound for clarification. This should be done via the PCPs office. 8. Hypertension. Continue same home medications. 9. History of malignant melanoma. Currently on pembrolizumab. Is following with oncology. 10. Morbid obesity. 11. High clinical suspicion of obstructive sleep apnea with recommendation with short-term outpatient follow-up with primary care to arrange formal sleep study. If positive then remains untreated this will contribute to ongoing acute decompensation of right-sided heart failure, etc. Plan: As described above. Please refer to orders for further planning. Admission and Anticipated Discharge Date Admission Date: January 11, 2024 Subjective Patient still with chills and rigors. Review of Systems Review of Systems: All systems reviewed & are unremarkable except as noted in HPI & below Physical Exam Physical Exam: In General: In general is a 78-year-old male was alert and oriented x 3. HEENT: Normocephalic atraumatic NECK: Supple no rigidity no lymphadenopathy no thyromegaly no carotid bruits no JVD no masses. HEART: Regular rate and rhythm I do not appreciate any ectopy or rub. No murmur. LUNGS: Clear to auscultation bilaterally and anteriorly with no evidence of adventitious sounds/wheezes rales or rhonchi. ABDOMEN: Obese, soft nontender, no rebound, no peritoneal signs, positive bowel sounds, no appreciable organomegaly. EXTREMITIES: Intact, no peripheral cyanosis, clubbing. The patient has 1-2+ pitting edema bilaterally. Cellulitis appears to show improvement.. NEUROLOGICAL: Cranial nerves II through XII are grossly intact with no focal deficit elicited upon examination. Results & Data Results & Data Vital Signs (Past 12 Hours) Vital Signs Temp Pulse Resp BP Pulse Ox O2 Del Method O2 Flow Rate 01/14/24 17:29 101 H 17 90 01/14/24 17:16 98/40 L 01/14/24 17:14 104 H 12 91 Nasal Cannula 2 01/14/24 16:46 118/53 L 01/14/24 16:41 105 H 18 89 L 01/14/24 16:38 107 H 17 91 01/14/24 16:23 108 H 21 91 01/14/24 16:15 83/58 L 01/14/24 16:00 107 H 26 H 90 01/14/24 16:00 134/81 01/14/24 16:00 37.1 C 01/14/24 16:00 105 H 01/14/24 15:56 105 H 20 92 01/14/24 15:49 154/62 H 01/14/24 15:39 104 H 17 93 01/14/24 15:30 101 H 30 H 93 01/14/24 15:30 124/85 01/14/24 15:20 103 H 20 94 01/14/24 15:15 124/71 01/14/24 15:11 100 H 19 94 01/14/24 15:05 100 H 16 94 01/14/24 14:45 127/72 01/14/24 14:45 103 H 24 127/72 92 Nasal Cannula 1 01/14/24 14:19 106 H 23 109/67 96 1 01/14/24 14:06 119/97 01/14/24 13:45 99 H 99 H 128/47 L 01/14/24 13:45 102 H 20 128/47 L 01/14/24 13:31 113/59 L 01/14/24 13:31 113/59 L 01/14/24 13:14 86/58 L 01/14/24 13:02 80/59 L 01/14/24 12:46 93 H 23 114/86 94 1 01/14/24 12:31 154/85 H 01/14/24 12:30 92 H 17 01/14/24 12:03 94 H 16 01/14/24 12:01 116/45 L 01/14/24 12:01 116/45 L 01/14/24 12:01 116/45 L 01/14/24 12:00 36.8 C 01/14/24 11:46 101/51 L 01/14/24 11:46 101/51 L 01/14/24 11:39 80 22 01/14/24 11:31 89/73 L 01/14/24 11:31 89/73 L 01/14/24 11:31 89/73 L 01/14/24 11:15 82 14 100 01/14/24 11:15 106/77 01/14/24 11:03 89 16 98 01/14/24 11:01 100/60 01/14/24 11:01 100/60 01/14/24 10:57 88 22 95 01/14/24 10:37 96 Nasal Cannula 2 01/14/24 10:30 81/49 L 01/14/24 10:24 90 12 96 01/14/24 10:22 114/59 L 01/14/24 10:22 87 13 114/59 L 97 Room Air PG Care Time/CCT Total # of Minutes Spent Total Time Spent with Patient: Total time spent is greater than 50% in coordination of care (as documented) at patient's floor/unit and/or counseling patient: Coding Level of Care Code 09164 SUB INP/OBS CARE 3/50MIN Diagnoses Hypovolemic shock R57.1 Bilateral cellulitis of lower leg L03.116; L03.115
[2024-01-15 06:37] LABS: Basophils # (auto) 0.06 K/uL (0.00-0.20); Eosinophils % (auto) 9.8 %; Hematocrit (blood only) 35.3 % (42.0-52.0); Hemoglobin 11.8 g/dl (14.0-18.0); Immature Granulocytes # (auto) 0.02 K/uL (0.01-0.20); Immature Granulocytes % (auto) 0.3 %; Lymphocytes # (auto) 1.51 K/uL (1.20-3.40); Lymphocytes % (auto) 24.7 %; Mean Corpuscular Hemoglobin 32.6 pg (25.0-34.0); Mean Corpuscular Hgb Conc 33.4 g/dL (32.0-36.0); Mean Corpuscular Volume 97.5 fL (80.0-100.0); Monocytes # (auto) 0.98 K/uL (0.11-0.59); Neutrophils # (auto) 2.94 K/uL (1.40-6.50); Neutrophils % (auto) 48.2 %; Platelet Count 160 K/uL (130-400); RDW Coefficient of Variation 14.1 % (11.5-14.5); RDW Standard Deviation 51.2 fL (36.4-46.3); Red Blood Count 3.62 M/uL (4.70-6.10); White Blood Count 6.11 K/ul (4.8-10.8)
[2024-01-15 07:01] LABS: BUN Creatinine Ratio 10.7 (10-20); Calcium 8.3 mg/dl (8.6-10.3); Creatinine Clr Calc Pharmacy 39.8 ml/min; Est GFR (African American) 36.4 ml/min; Est GFR (Non-African American) 31.4 ml/min; Magnesium 1.8 mg/dl (1.7-2.4); Phosphorus 3.1 mg/dl (2.5-4.9); Potassium 4.1 mmol/L (3.5-5.1)
[2024-01-15] MEDS: HEPARIN 100 UNIT/ML 5ML FLUSH FLUSH PRN (07:08)
--- NOTE | 2024-01-15 07:26 | Hospitalist Progress Note ---
Date of Service January 15, 2024 Assessment & Plan (1) Severe sepsis: Plan: Initially concerned over hypovolemic shock, but as the picture clears this is more likely septic shock Transferred to the ICU on 01/11 downgrade 01/14 off pressors utilizing midodrine Patient source may be a UTI in addition to his cellulitis UA was positive though no bacteria seen. no culture sent, repeat urine specimen sent again due to clinical symptoms 01/15/24 CT abd pelvis was negative except for Right renal cyst. Recommending outpatient ultrasound for clarification. This should be done via the PCPs office. Lower Extremity Cellulitis appears to be doing better. on daptomycin and ceftriaxone. (2) ELISABETH (acute kidney injury): Plan: Status post acute kidney injury last week during admission. With a history of CKD stage III. Creatinine normalized (3) Bilateral cellulitis of lower leg: Plan: Hypomagnesemia. Replaced we will recheck in the morning. Peripheral edema. The patient received a dose of IV Lasix in the ER. Will give no more Lasix given the recent acute kidney injury. History of pulmonary embolism. With failed Coumadin therapy. Patient is on Lovenox 1 mg/kg every 12 this has been ordered appropriately. Patient did have his morning dose at 9 AM today next dose due 9 PM today. Hypertension. holding losartan/HCTZ History of malignant melanoma. Currently on pembrolizumab. Is following with oncology. Morbid obesity. High clinical suspicion of obstructive sleep apnea with recommendation with short-term outpatient follow-up with primary care to arrange formal sleep study. If positive then remains untreated this will contribute to ongoing acute decompensation of right-sided heart failure, etc. Admission and Anticipated Discharge Date Admission Date: January 11, 2024 Subjective pt was sitting in chair, did have some le redness, c/o urinary urgency and cloudy urine initial urine culture is negative, repeat pending Physical Exam Physical Exam: Pt is awake and alert, he is oriented c/o urinary urgency, states urine is cloudy cardiac is regular lungs diminished LE with patches of violaceous skin, well circumscribed anterior lower leg Results & Data Results & Data Vital Signs (Past 12 Hours) Vital Signs Temp Pulse Resp BP Pulse Ox O2 Del Method O2 Flow Rate 01/15/24 06:00 107/60 01/15/24 06:00 107/60 01/15/24 05:42 91 H 17 98 01/15/24 05:39 92 H 17 96 Nasal Cannula 3 01/15/24 05:30 114/57 L 01/15/24 05:30 114/57 L 01/15/24 05:30 114/57 L 01/15/24 05:18 90 13 97 01/15/24 05:15 90 15 98 01/15/24 05:03 91 H 14 97 01/15/24 05:00 125/59 L 01/15/24 05:00 125/59 L 01/15/24 04:18 99.5 F 91 H 16 94 01/15/24 04:15 93 H 19 95 01/15/24 04:00 116/51 L 01/15/24 04:00 89 15 96 01/15/24 03:57 91 H 17 96 01/15/24 03:21 89 19 96 01/15/24 03:01 139/65 01/15/24 03:00 89 29 H 97 01/15/24 02:51 93 H 16 96 01/15/24 02:31 142/60 H 01/15/24 02:18 83 24 96 01/15/24 02:09 84 23 99 01/15/24 02:01 99.3 F 148/48 H Nasal Cannula 3 01/15/24 01:51 81 14 97 01/15/24 01:48 84 18 98 01/15/24 01:30 161/58 H 01/15/24 01:30 161/58 H 01/15/24 01:12 89 27 H 98 01/15/24 01:03 90 22 95 01/15/24 01:01 132/76 01/15/24 01:01 132/76 01/15/24 00:57 82 14 88 L 01/15/24 00:33 88 14 92 01/15/24 00:31 131/52 L 01/15/24 00:24 86 13 92 01/15/24 00:18 82 14 93 01/15/24 00:06 88 13 94 01/15/24 00:00 87 01/14/24 23:48 88 14 95 01/14/24 23:45 101/42 L 01/14/24 23:36 82 14 101/42 L 96 01/14/24 23:27 81 14 133/62 96 01/14/24 23:21 81 14 137/50 L 96 01/14/24 23:09 83 15 144/58 H 97 01/14/24 22:45 144/58 H 01/14/24 22:45 144/58 H 01/14/24 22:31 144/49 H 01/14/24 22:31 144/49 H 01/14/24 22:06 85 16 95 01/14/24 22:00 100.4 F H 01/14/24 21:51 85 16 94 01/14/24 21:33 86 16 95 01/14/24 21:31 137/53 L 01/14/24 21:31 137/53 L 01/14/24 21:31 137/53 L 01/14/24 21:24 87 15 95 01/14/24 21:18 87 14 95 01/14/24 21:15 94/41 L 01/14/24 21:15 94/41 L 01/14/24 21:00 91 H 19 94 01/14/24 21:00 103/41 L 01/14/24 20:45 104/41 L 01/14/24 20:45 104/41 L 01/14/24 20:33 95 H 20 90 01/14/24 20:30 101/44 L 01/14/24 20:30 96 H 24 90 01/14/24 20:27 95 H 17 91 01/14/24 20:15 133/52 L 01/14/24 20:15 133/52 L 01/14/24 20:15 133/52 L 01/14/24 20:03 95 H 20 01/14/24 20:00 113/61 01/14/24 20:00 113/61 01/14/24 20:00 98 H 20 90 Nasal Cannula 3 01/14/24 20:00 Nasal Cannula 3 01/14/24 19:51 101.8 F H 123/58 L 01/14/24 19:42 94 H 17 90 01/14/24 19:39 95 H 16 90 01/14/24 19:30 127/54 L Laboratory Results review cbc review chemistry down grade from icu status all orders reviewed PG Care Time/CCT Total # of Minutes Spent Total Time Spent with Patient: Total time spent is greater than 50% in coordination of care (as documented) at patient's floor/unit and/or counseling patient: Coding Level of Care Code 86619 SUB INP/OBS CARE 50MIN Diagnoses Severe sepsis A41.9; R65.20 ELISABETH (acute kidney injury) N17.9 Bilateral cellulitis of lower leg L03.116; L03.115
--- NOTE | 2024-01-15 09:39 | Critical Care Progress Note ---
Date of Service January 15, 2024 Assessment & Plan (1) Hypovolemic shock: (2) Severe sepsis: (3) Chronic kidney disease, stage III (moderate): (4) Complicated UTI (urinary tract infection): (5) Acute kidney injury superimposed on CKD: Plan 78-year-old male with a history of melanoma, hypertension, PE and hyperlipidemia presenting with hypovolemic shock and signs of severe sepsis. Currently on low- dose Levophed via Port-A-Cath. Neurologic: No significant issues at present. No signs of delirium. -Decreasing Lyrica dose given decreased creatinine clearance Pulmonary: Patient requiring low-flow oxygen. Has a history of PE. Currently anticoagulated with Lovenox. Cardiovascular: Echo revealed a hyperdynamic EF. Troponins are negative. EKG negative as well. Maintain maps above 65 mmHg. -Midodrine added yesterday Gastrointestinal: Advanced diet. CT abdomen pelvis on admission without any acute findings. LFTs largely unremarkable. No clear cause for the patient's nausea and vomiting on presentation. Lipase and lactate normal. Renal: Follow urine output closely. See in place. Patient with ongoing mild ELISABETH. Nephrology consult placed. UA did show positive leuk esterase and WBCs. Urine culture is unremarkable. Infectious disease: Patient now febrile, BioFire negative -Urine findings reviewed -Awaiting infectious disease recommendations, possibly consider repeat blood culture testing -Continue daptomycin and Rocephin in interim until infectious disease recommendations. -Patient concerned for Lyme disease, will send Lyme titers, not fitting classic representation of Lyme disease Hematologic: On full dose Lovenox for history of PE. Mild anemia which is close to his baseline. Normal platelet count. Endocrine: TSH unremarkable. Maintain euglycemia. Lines and tubes: Patient with Port-A-Cath. Using this for vasopressors. VTE prophylaxis: Full dose Lovenox CODE STATUS: Okay for CPR and defibrillation per hospitalist service. Does not want intubation. Family at bedside: None at bedside Disposition: Stable for downgrade Admission and Anticipated Discharge Date Admission Date: January 11, 2024 Subjective This morning ongoing temperature bouts of intermittent confusion. Turned off vasoactives around 0600 Physical Exam Physical Exam: General: Alert. nontoxic. Able to be reoriented Skin: Warm, dry, Head: Atraumatic Ears, nose, mouth and throat: airway patent Cardiovascular: Normal peripheral perfusion Respiratory: no respiratory distress Gastrointestinal: Non distended Musculoskeletal: No deformity Results & Data Results & Data Vital Signs (Past 12 Hours) Vital Signs Temp Pulse Resp BP Pulse Ox O2 Del Method O2 Flow Rate 01/15/24 07:53 36.1 C L 01/15/24 07:44 93 H 01/15/24 07:00 93 H 13 115/53 L 97 01/15/24 06:00 107/60 01/15/24 06:00 107/60 01/15/24 05:42 91 H 17 98 01/15/24 05:39 92 H 17 96 Nasal Cannula 3 01/15/24 05:30 114/57 L 01/15/24 05:30 114/57 L 01/15/24 05:30 114/57 L 01/15/24 05:18 90 13 97 01/15/24 05:15 90 15 98 01/15/24 05:03 91 H 14 97 01/15/24 05:00 125/59 L 01/15/24 05:00 125/59 L 01/15/24 04:18 37.5 C 91 H 16 94 01/15/24 04:15 93 H 19 95 01/15/24 04:00 116/51 L 01/15/24 04:00 89 15 96 01/15/24 03:57 91 H 17 96 01/15/24 03:21 89 19 96 01/15/24 03:01 139/65 01/15/24 03:00 89 29 H 97 01/15/24 02:51 93 H 16 96 01/15/24 02:31 142/60 H 01/15/24 02:18 83 24 96 01/15/24 02:09 84 23 99 01/15/24 02:01 37.4 C 148/48 H Nasal Cannula 3 01/15/24 01:51 81 14 97 01/15/24 01:48 84 18 98 01/15/24 01:30 161/58 H 01/15/24 01:30 161/58 H 01/15/24 01:12 89 27 H 98 01/15/24 01:03 90 22 95 01/15/24 01:01 132/76 01/15/24 01:01 132/76 01/15/24 00:57 82 14 88 L 01/15/24 00:33 88 14 92 01/15/24 00:31 131/52 L 01/15/24 00:24 86 13 92 01/15/24 00:18 82 14 93 01/15/24 00:06 88 13 94 01/15/24 00:00 87 01/14/24 23:48 88 14 95 01/14/24 23:45 101/42 L 01/14/24 23:36 82 14 101/42 L 96 01/14/24 23:27 81 14 133/62 96 01/14/24 23:21 81 14 137/50 L 96 01/14/24 23:09 83 15 144/58 H 97 01/14/24 22:45 144/58 H 01/14/24 22:45 144/58 H 01/14/24 22:31 144/49 H 01/14/24 22:31 144/49 H 01/14/24 22:06 85 16 95 01/14/24 22:00 38.0 C H 01/14/24 21:51 85 16 94 Critical Care Results & Data Vital Signs (Past 12 Hours) Vital Signs Temp Pulse Resp BP Pulse Ox O2 Del Method O2 Flow Rate 01/15/24 07:53 36.1 C L 01/15/24 07:44 93 H 01/15/24 07:00 93 H 13 115/53 L 97 01/15/24 06:00 107/60 01/15/24 06:00 107/60 01/15/24 05:42 91 H 17 98 01/15/24 05:39 92 H 17 96 Nasal Cannula 3 01/15/24 05:30 114/57 L 01/15/24 05:30 114/57 L 01/15/24 05:30 114/57 L 01/15/24 05:18 90 13 97 01/15/24 05:15 90 15 98 01/15/24 05:03 91 H 14 97 01/15/24 05:00 125/59 L 01/15/24 05:00 125/59 L 01/15/24 04:18 37.5 C 91 H 16 94 01/15/24 04:15 93 H 19 95 01/15/24 04:00 116/51 L 01/15/24 04:00 89 15 96 01/15/24 03:57 91 H 17 96 01/15/24 03:21 89 19 96 01/15/24 03:01 139/65 08/12/24 03:00 89 29 H 97 01/15/24 02:51 93 H 16 96 01/15/24 02:31 142/60 H 01/15/24 02:18 83 24 96 01/15/24 02:09 84 23 99 01/15/24 02:01 37.4 C 148/48 H Nasal Cannula 3 01/15/24 01:51 81 14 97 01/15/24 01:48 84 18 98 01/15/24 01:30 161/58 H 01/15/24 01:30 161/58 H 01/15/24 01:12 89 27 H 98 01/15/24 01:03 90 22 95 01/15/24 01:01 132/76 01/15/24 01:01 132/76 01/15/24 00:57 82 14 88 L 01/15/24 00:33 88 14 92 01/15/24 00:31 131/52 L 01/15/24 00:24 86 13 92 01/15/24 00:18 82 14 93 01/15/24 00:06 88 13 94 01/15/24 00:00 87 01/14/24 23:48 88 14 95 01/14/24 23:45 101/42 L 01/14/24 23:36 82 14 101/42 L 96 01/14/24 23:27 81 14 133/62 96 01/14/24 23:21 81 14 137/50 L 96 01/14/24 23:09 83 15 144/58 H 97 01/14/24 22:45 144/58 H 01/14/24 22:45 144/58 H 01/14/24 22:31 144/49 H 01/14/24 22:31 144/49 H 01/14/24 22:06 85 16 95 01/14/24 22:00 38.0 C H 01/14/24 21:51 85 16 94 Lab & Micro Results (Past 24 Hours) RBC 3.62 M/uL (4.70-6.10) L 01/15/24 WBC 6.11 K/ul (4.8-10.8) 01/15/24 Hgb 11.8 g/dl (14.0-18.0) L 01/15/24 Hct 35.3 % (42.0-52.0) L 01/15/24 MCV 97.5 fL (80.0-100.0) 01/15/24 MCH 32.6 pg (25.0-34.0) 01/15/24 MCHC 33.4 g/dL (32.0-36.0) 01/15/24 RDW Standard Deviation 51.2 fL (36.4-46.3) H 01/15/24 RDW Coefficient of Variation 14.1 % (11.5-14.5) 01/15/24 Plt Count 160 K/uL (130-400) 01/15/24 MPV 10.0 fL (9.4-12.4) 01/15/24 Neutrophils (%) (Auto) 48.2 % 01/15/24 Lymphocytes (%) (Auto) 24.7 % 01/15/24 Monocytes # (Auto) 0.98 K/uL (0.11-0.59) H 01/15/24 Eosinophils # (Auto) 0.60 K/uL (0.00-0.50) H 01/15/24 Immature Granulocyte % (Auto) 0.3 % 01/15/24 Neutrophils # (Auto) 2.94 K/uL (1.40-6.50) 01/15/24 Lymphocytes # (Auto) 1.51 K/uL (1.20-3.40) 01/15/24 Monocytes # (Auto) 0.98 K/uL (0.11-0.59) H 01/15/24 Eosinophils # (Auto) 0.60 K/uL (0.00-0.50) H 01/15/24 Basophils # (Auto) 0.06 K/uL (0.00-0.20) 01/15/24 Immature Granulocyte # (Auto) 0.02 K/uL (0.01-0.20) 4 Na 135 mmol/L (136-145) L 01/15/24 K 4.1 mmol/L (3.5-5.1) 01/15/24 Cl 101 mmol/L (98-107) 01/15/24 CO2 29 mmol/L (21-32) 01/15/24 Anion Gap 5 (3-11) 01/15/24 BUN 21 mg/dl (6-23) 01/15/24 Creatinine 1.97 mg/dl (0.6-1.4) H 01/15/24 Estimated GFR ( Amer) 36.4 ml/min 01/15/24 Estimated GFR (Non-Af Amer) 31.4 ml/min 01/15/24 BUN/Creatinine Ratio 10.7 (10-20) 01/15/24 Glu 107 mg/dl (70-99(Fasting)) H 01/15/24 Ca 8.3 mg/dl (8.6-10.3) L 01/15/24 Phosphorus Level 3.1 mg/dl (2.5-4.9) 01/15/24 Mg 1.8 mg/dl (1.7-2.4) 01/15/24 05:37 Calcium Level 8.3 mg/dl (8.6-10.3) L 01/15/24 05:37 Microbiology 01/13/24 10:07 Aerobic Blood Culture - Preliminary Blood No growth in Aerobic bottle after 24 hours. Anaerobic Blood Culture - Final 01/12/24 18:19 Urine Culture - Final Urine,Indwelling Cath No growth - less than 1,000 colonies/mL. I & O Totals 24 Hours 01/14/24 01/15/24 01/16/24 06:59 06:59 06:59 Intake Total 3696.526 / 3696.526 2905.417 / 2905.417 540 / 540 Output Total 1180 / 1180 1336 / 1336 250 / 250 Balance 2516.526 / 2516.526 1569.417 / 1569.417 290 / 290 Cumulative 01/11/24 10:34 thru 01/15/24 07:51 Intake Total 35622.466 Output Total 4491 Balance 6165.466 RT Ventilator Mngmt (Last Documented) Ventilator Ordered Settings Respiratory Rate 13 01/15/24 07:00 Ventilator - PT Measurements Respiratory Rate 13 Coding Level of Care Code 30983 SUB INP/OBS CARE 2/35MIN Diagnoses Hypovolemic shock R57.1 Severe sepsis A41.9; R65.20 Chronic kidney disease, stage III (moderate) N18.3 Complicated UTI (urinary tract infection) N39.0 Acute kidney injury superimposed on CKD N17.9; N18.9
[2024-01-15] MEDS: PREGABALIN 150 MG CAP PO SCH (10:58)
[2024-01-15 11:14] LABS: Adenovirus PCR Not Detected (NotDetected); Bordetella parapertussis PCR Not Detected (NotDetected); Bordetella pertussis PCR Not Detected (NotDetected); Chlamydia pneumoniae PCR Not Detected (NotDetected); Coronavirus 229E PCR Not Detected (NotDetected); Coronavirus CoV-2 (COVID19)PCR Not Detected (NotDetected); Coronavirus HKU1 PCR Not Detected (NotDetected); Coronavirus NL63 PCR Not Detected (NotDetected); Coronavirus OC43PCR Not Detected (NotDetected); Human Metapneumovirus PCR Not Detected (NotDetected); Influenza A PCR Not Detected (NotDetected); Influenza B PCR Not Detected (NotDetected); Mycoplasma pneumoniae PCR Not Detected (NotDetected); Parainfluenza Virus 1 PCR Not Detected (NotDetected); Parainfluenza Virus 2 PCR Not Detected (NotDetected); Parainfluenza Virus 3 PCR Not Detected (NotDetected); Parainfluenza Virus 4 PCR Not Detected (NotDetected); Respiratory Syncytial VirusPCR Not Detected (NotDetected); Rhinovirus/Enterovirus PCR Not Detected (NotDetected)
--- NOTE | 2024-01-15 13:13 | Nephrology Progress Note ---
Date of Service January 15, 2024 Assessment & Plan (1) Acute kidney injury superimposed on CKD: (2) Severe sepsis: (3) Vomiting: (4) Bilateral cellulitis of lower leg: Plan 78-year-old gentleman with history of stage IIIa CKD, baseline creatinine 1.3 mg/dl , admitted to the hospital with severe sepsis with nausea, vomiting and worsening bilateral lower extremity cellulitis. Blood and urine cultures so far negative. On daptomycin and ceftriaxone. Imaging negative for postrenal obstruction. Acute kidney injury most likely hemodynamically mediated with profound hypotension with sepsis as well as IV contrast exposure. -- Continue to monitor, kidney function, electrolyte, intake and output, expect kidney function to stabilize with improvement in blood pressure --Continue to hold diuretics, KIERAN inhibitor or ARB Admission and Anticipated Discharge Date Admission Date: January 11, 2024 Timothy Kinsey was seen and evaluated this morning. Overall he feels well, denied any symptoms. Off of pressor. Blood pressure has been well-controlled. Kidney function staying relatively stable, electrolyte acceptable. Decent urine output. Review of Systems Review of Systems: Detailed review of system was done and pertinent positives and negatives are mentioned above. Physical Exam Constitutional: WD/WN, vitals as above no acute distress Eyes: + anicteric sclerae Respiratory: no respiratory distress Auscultation: lungs clear to auscultation bilaterally Cardiovascular: Rate/Rhythm: regular rate and regular rhythm Heart Sounds: normal S1 and normal S2 Extremities: no edema Musculoskeletal: Extremities: extremities normal to inspection Skin: + dry skin and + erythema; no jaundice Neurologic: no focal motor deficits Psychiatric: Orientation: alert and oriented x 3 Affect: euthymic affect Results & Data Vital Signs (Past 12 Hours) Vital Signs Temp Pulse Resp BP Pulse Ox O2 Del Method O2 Flow Rate 01/15/24 12:00 36.8 C 01/15/24 07:53 36.1 C L 01/15/24 07:44 93 H 01/15/24 07:00 93 H 13 115/53 L 97 01/15/24 06:00 107/60 01/15/24 06:00 107/60 01/15/24 05:42 91 H 17 98 01/15/24 05:39 92 H 17 96 Nasal Cannula 3 01/15/24 05:30 114/57 L 01/15/24 05:30 114/57 L 01/15/24 05:30 114/57 L 01/15/24 05:18 90 13 97 01/15/24 05:15 90 15 98 01/15/24 05:03 91 H 14 97 01/15/24 05:00 125/59 L 01/15/24 05:00 125/59 L 01/15/24 04:18 37.5 C 91 H 16 94 01/15/24 04:15 93 H 19 95 01/15/24 04:00 116/51 L 01/15/24 04:00 89 15 96 01/15/24 03:57 91 H 17 96 01/15/24 03:21 89 19 96 01/15/24 03:01 139/65 01/15/24 03:00 89 29 H 97 01/15/24 02:51 93 H 16 96 01/15/24 02:31 142/60 H 01/15/24 02:18 83 24 96 01/15/24 02:09 84 23 99 01/15/24 02:01 37.4 C 148/48 H Nasal Cannula 3 01/15/24 01:51 81 14 97 01/15/24 01:48 84 18 98 01/15/24 01:30 161/58 H 01/15/24 01:30 161/58 H 01/15/24 01:12 89 27 H 98 PG Care Time/CCT Total # of Minutes Spent Total Time Spent with Patient: Total time spent is greater than 50% in coordination of care (as documented) at patient's floor/unit and/or counseling patient: Coding Level of Care Code 98667 SUB INP/OBS CARE 2/35MIN Diagnoses Acute kidney injury superimposed on CKD N17.9; N18.9 Severe sepsis A41.9; R65.20 Vomiting R11.10 Bilateral cellulitis of lower leg L03.116; L03.115
--- NOTE | 2024-01-15 15:48 | Infectious Disease Progress Nt ---
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 He was initially admitted 01/02 01/08, at which time was dx with b/l cellulitis, afebrile with normal WBC then, and ID not involved in his care then. He was treated with ceftriaxone for 6d followed by Keflex for an additional 3d. Patient readmitted on 01/10 with N/V x 48 hours. In the ED, labs were unremarkable, CT AP negative for acute findings; showed R renal cyst. C/f recurrence of b/l LE cellulitis. He was placed on vancomycin and ceftriaxone, which was changed to daptomycin and ceftriaxone. Planned for discharge on 01/11 however became hypotensive and TF to ICU on 01/11. Receiving levophed through port. On 01/11, WBC 6.3, Cr 1.4. UA 6-10 WBCs, UCx NGTD with <1000 colonies. Discussion Patient with hypotension on 01/11 suspected to be from septic shock. His shock and possible sepsis is of unclear etiology. Considered possible recurrence of BLE cellulitis. Abx were broadened to vancomycin/ceftriaxone then changed to daptomycin/ceftriaxone, on which he is having improvement. T38.8 on 01/13 in the evening, afebrile thus far on 01/14. Was previously on pressors which were weaned off log sawyer on 01/14. 01/12 BCx (though obtained after abx) are NGTD; do wonder about a missed bacteremia given no initial BCx being drawn. TTE with hyperdynamic LV, no reported significant valvular heart disease. 01/11 MRSA nares negative though nasal can be discordant from SSTI. Wonder if BLE cellulitis may actually be erysipelas given the beefy-red and well-demarcated appearance. Erysipelas is often caused by group A Strep which can be associated with a toxic shock picture, which may explain pts hypotension. However, it is unusual that pt has a re-presentation despite having recently been treated with ceftriaxone - > Keflex for cellulitis and improving on this regimen. At this time, he is now off pressors and appears to be clinically improving (thus even if there is GAS infection, would not benefit from antitoxin therapy at this time). Can continue daptomycin and ceftriaxone for possible BLE SSTI, including possible erysipelas. If improving without other source of infection identified, may consider transitioning to PO abx to complete a 14-day course (longer course given severity of illness and uncertainty about BCx). Overall still with some uncertainty about infectious source but reassured by clinical improvement thus far. If fevers, chills, leukocytosis, or other clinical worsening, consider repeating BCx. Previously complaining of aches and pains throughout (including R hip pain, L shoulder pain). Has bilateral knee and bilateral shoulder replacements. This AM, pt reports that he feels better denies pain at any joints today. Would continue to monitor these sites. Also considered source of UTI; UA with modest pyuria though UCx NG (<1k colonies) thus not suggestive of UTI. CT A/P with contrast did not show ascending urinary tract abnormalities. Recommendations: - Can continue daptomycin and ceftriaxone while inpatient - If fevers, chills, leukocytosis, or other clinical worsening, consider repeating BCx - If continuing to improve, consider transition to doxycycline + Augmentin to complete 14-day course for BLE cellulitis (01/1001/24/24) - Ensure close follow-up with primary care ID will continue to follow. Isabel Lemus MD, MHS Infectious Diseases [facility]/ID Connect ID Connect direct line: [phone] Admission and Anticipated Discharge Date Admission Date: January 11, 2024 Subjective This patient recommendation is based on a telemedicine consult request which was completed asynchronously through chart review and information provided by the primary physician. The patient was not seen or examined today. The evaluation is consultative in nature and all patient care and treatment decisions can either be accepted or rejected by the patient's primary hospital-based treating physician using their own independent medical judgment for their patient. Time Spent Reviewing Chart: 31+ minutes - Afebrile - T38.8 last night, afebrile this AM. Was previously on pressors which were weaned off this AM - Previously complaining of aches and pains throughout (including R hip pain, L shoulder pain). Has bilateral knee and bilateral shoulder replacements. This AM, pt reports that he feels better denies pain at any joints today. - No other localizing symptoms no coughing, no diarrhea, no urinary symptoms. - and family at bedside. Pt still with some waxing/waning confusion but overall able to respond to questions. Physical Exam Physical Exam: Exam obtained with aid of in-person telepresenter. General: No acute distress HEENT: Conjunctivae non-injected, sclerae anicteric, MMM, OP clear. Resp: Respirations nonlabored. Abd: Soft, nontender, mildly distended Ext: No joint warmth or effusions noted. BLE lower extremity erythema, beefy-red and well-circumscribed, appears to be improving from prior. Blistering wound on R disla Skin: No rashes or lesions. Neuro: Alert & interactive. Grossly non-focal. Psych: Pleasant, appropriate. Results & Data Vital Signs (Past 12 Hours) Vital Signs Temp Pulse Pulse Resp BP BP Pulse Ox 01/15/24 15:26 37.3 C 95 H 93/51 L 95 01/15/24 13:09 95 H 24 96 01/15/24 12:30 96/66 L 01/15/24 12:30 95 H 24 95 01/15/24 12:01 118/64 01/15/24 12:01 118/64 01/15/24 12:01 118/64 01/15/24 12:00 105 H 12 92 01/15/24 12:00 36.8 C 01/15/24 11:12 88 17 93 01/15/24 10:30 96/48 L 01/15/24 10:21 95 H 15 94 01/15/24 10:06 91 H 21 97 01/15/24 09:30 91 H 101/53 L 01/15/24 09:00 92 H 110/61 01/15/24 07:53 36.1 C L 01/15/24 07:44 93 H 01/15/24 07:00 93 H 13 115/53 L 97 01/15/24 06:00 107/60 01/15/24 06:00 107/60 01/15/24 05:42 91 H 17 98 01/15/24 05:39 92 H 17 96 01/15/24 05:30 114/57 L 01/15/24 05:30 114/57 L 01/15/24 05:30 114/57 L 01/15/24 05:18 90 13 97 01/15/24 05:15 90 15 98 01/15/24 05:03 91 H 14 97 01/15/24 05:00 125/59 L 01/15/24 05:00 125/59 L 01/15/24 04:18 37.5 C 91 H 16 94 01/15/24 04:15 93 H 19 95 01/15/24 04:00 116/51 L 01/15/24 04:00 89 15 96 01/15/24 03:57 91 H 17 96 O2 Del Method O2 Flow Rate 01/15/24 15:26 Nasal Cannula 2 01/15/24 13:09 01/15/24 12:30 01/15/24 12:30 01/15/24 12:01 01/15/24 12:01 01/15/24 12:01 01/15/24 12:00 01/15/24 12:00 01/15/24 11:12 01/15/24 10:30 01/15/24 10:21 01/15/24 10:06 01/15/24 09:30 01/15/24 09:00 01/15/24 07:53 01/15/24 07:44 01/15/24 07:00 01/15/24 06:00 01/15/24 06:00 01/15/24 05:42 01/15/24 05:39 Nasal Cannula 3 01/15/24 05:30 01/15/24 05:30 01/15/24 05:30 01/15/24 05:18 01/15/24 05:15 01/15/24 05:03 01/15/24 05:00 01/15/24 05:00 01/15/24 04:18 01/15/24 04:15 01/15/24 04:00 01/15/24 04:00 01/15/24 03:57 Diagnostic Findings Diagnostics: 01/12 b/l hip X-ray 1. No fractures within the pelvis or hips. 2. Mild degenerative changes within the hips. 01/11 TTE: hyperdynamic LV, no reported significant valvular heart disease 01/10 CT A/P with IV contrast 1. No acute abnormalities are seen to explain bilateral leg swelling. 2. Right renal hypodensity likely represents a cyst as seen on ultrasound. Micro Data: 01/12 BCx x1: NGTD 01/11 MRSA nares: neg 01/11 UCX: NG <1k colonies Antibiotic Summary: daptomycin (01/13 present) ceftriaxone (01/10 present) prior vancomycin (01/10 01/11)
[2024-01-15 17:15] LABS: Lyme Screen Rflx Confirmation Positive (Negative)
[2024-01-15 17:49] LABS: Lyme Ab IgG 2nd Tier Confirm Negative (Negative); Lyme Ab IgM 2nd Tier Confirm Negative (Negative)
[2024-01-16 05:59] LABS: Basophils # (auto) 0.05 K/uL (0.00-0.20); Eosinophils # (auto) 0.53 K/uL (0.00-0.50); Eosinophils % (auto) 10.5 %; Hematocrit (blood only) 35.5 % (42.0-52.0); Hemoglobin 11.7 g/dl (14.0-18.0); Immature Granulocytes # (auto) 0.01 K/uL (0.01-0.20); Immature Granulocytes % (auto) 0.2 %; Lymphocytes # (auto) 1.51 K/uL (1.20-3.40); Mean Corpuscular Hemoglobin 32.1 pg (25.0-34.0); Mean Corpuscular Volume 97.3 fL (80.0-100.0); Mean Platelet Volume 9.6 fL (9.4-12.4); Monocytes # (auto) 0.89 K/uL (0.11-0.59); Monocytes % (auto) 17.7 %; Neutrophils # (auto) 2.04 K/uL (1.40-6.50); Neutrophils % (auto) 40.6 %; Platelet Count 156 K/uL (130-400); RDW Coefficient of Variation 14.1 % (11.5-14.5); RDW Standard Deviation 51.2 fL (36.4-46.3); Red Blood Count 3.65 M/uL (4.70-6.10); White Blood Count 5.03 K/ul (4.8-10.8)
[2024-01-16 06:10] LABS: BUN Creatinine Ratio 13.1 (10-20); Calcium 8.4 mg/dl (8.6-10.3); Est GFR (African American) 39.8 ml/min; Est GFR (Non-African American) 34.3 ml/min; Magnesium 1.8 mg/dl (1.7-2.4); Phosphorus 2.7 mg/dl (2.5-4.9); Potassium 4.1 mmol/L (3.5-5.1)
[2024-01-16 08:01] LABS: Polychromasia 1+
[2024-01-16] MEDS: POLYETHYLENE (MIRALAX) 17 GM PACK PO SCH (08:07)
[2024-01-16] MEDS: DOXYCYCLINE HYCLATE 100 MG CAP PO SCH (10:40)
--- NOTE | 2024-01-16 11:49 | Nephrology Progress Note ---
Date of Service January 16, 2024 Assessment & Plan (1) Acute kidney injury superimposed on CKD: (2) Severe sepsis: (3) Vomiting: (4) Bilateral cellulitis of lower leg: Plan 78-year-old gentleman with history of stage IIIa CKD, baseline creatinine 1.3 mg/dl , admitted to the hospital with severe sepsis with nausea, vomiting and worsening bilateral lower extremity cellulitis. Blood and urine cultures so far negative. On daptomycin and ceftriaxone. Imaging negative for postrenal obstruction. Acute kidney injury most likely hemodynamically mediated with profound hypotension with sepsis as well as IV contrast exposure. Kidney function started to improve slowly. Reports feeling poorly this morning although clinically otherwise stable with stable vital signs, unremarkable labs. -- Continue to monitor, kidney function, electrolyte, intake and output, expect kidney function to stabilize with improvement in blood pressure --Continue to hold diuretics, KIERAN inhibitor or ARB Admission and Anticipated Discharge Date Admission Date: January 11, 2024 Timothy Kinsey was seen and evaluated this morning. He seems somewhat confused this morning and reported overall not feeling well but could not give any specific symptoms. Was not having any respiratory distress. Afebrile. Vital sign was stable. Kidney function slightly improved, creatinine down to 1.8, electrolyte acceptable. Decent urine output. Hemoglobin stable, no leukocytosis on labs this morning. Recent blood and urine cultures negative. See catheter was removed and reports voiding this morning after See catheter was removed. Review of Systems Review of Systems: Detailed review of system was done and pertinent positives and negatives are mentioned above. Physical Exam Constitutional: WD/WN, vitals as above no acute distress Respiratory: no respiratory distress Auscultation: lungs clear to auscultation bilaterally Cardiovascular: Rate/Rhythm: regular rate and regular rhythm Heart Sounds: normal S1 and normal S2 Extremities: no edema Musculoskeletal: Extremities: extremities normal to inspection Skin: + dry skin and + erythema; no jaundice Neurologic: no focal motor deficits Psychiatric: Orientation: alert and oriented x 3 Affect: euthymic affect Results & Data Vital Signs (Past 12 Hours) Vital Signs Temp Pulse Pulse Resp BP BP Pulse Ox 01/16/24 07:46 94 H 01/16/24 07:46 01/16/24 07:02 37.0 C 93 H 19 119/67 93 01/16/24 04:20 160 H 01/16/24 04:00 36.9 C 91 H 16 121/73 94 01/16/24 03:21 36.7 C 86 18 106/61 97 O2 Del Method O2 Flow Rate 01/16/24 07:46 01/16/24 07:46 Nasal Cannula 2 01/16/24 07:02 Nasal Cannula 2 01/16/24 04:20 01/16/24 04:00 Nasal Cannula 2 01/16/24 03:21 Nasal Cannula 2.0 PG Care Time/CCT Total # of Minutes Spent Total Time Spent with Patient: Total time spent is greater than 50% in coordination of care (as documented) at patient's floor/unit and/or counseling patient: Coding Level of Care Code 07370 SUB INP/OBS CARE 2/35MIN Diagnoses Acute kidney injury superimposed on CKD N17.9; N18.9 Severe sepsis A41.9; R65.20 Vomiting R11.10 Bilateral cellulitis of lower leg L03.116; L03.115
--- NOTE | 2024-01-16 14:01 | Infectious Disease Progress Nt ---
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 He was initially admitted 01/02 01/08, at which time was dx with b/l cellulitis, afebrile with normal WBC then, and ID not involved in his care then. He was treated with ceftriaxone for 6d followed by Keflex for an additional 3d. Patient readmitted on 01/10 with N/V x 48 hours. In the ED, labs were unremarkable, CT AP negative for acute findings; showed R renal cyst. C/f recurrence of b/l LE cellulitis. He was placed on vancomycin and ceftriaxone, which was changed to daptomycin and ceftriaxone. Planned for discharge on 01/11 however became hypotensive and TF to ICU on 01/11. Receiving levophed through port. On 01/11, WBC 6.3, Cr 1.4. UA 6-10 WBCs, UCx NGTD with <1000 colonies. Discussion Patient with hypotension on 01/11 suspected to be from septic shock. His shock and possible sepsis is of unclear etiology. Considered possible recurrence of BLE cellulitis. Abx were broadened to vancomycin/ceftriaxone then changed to daptomycin/ceftriaxone, on which he is having improvement. T38.8 on 01/13 in the evening, afebrile thus far on 01/14. Was previously on pressors which were weaned off high risk case manager on 01/14. 01/12 BCx (though obtained after abx) are NGTD; do wonder about a missed bacteremia given no initial BCx being drawn. TTE with hyperdynamic LV, no reported significant valvular heart disease. 01/11 MRSA nares negative though nasal can be discordant from SSTI. Wonder if BLE cellulitis may actually be erysipelas given the beefy-red and well-demarcated appearance. Erysipelas is often caused by group A Strep which can be associated with a toxic shock picture, which may explain pts hypotension. However, it is unusual that pt has a re-presentation despite having recently been treated with ceftriaxone - > Keflex for cellulitis and improving on this regimen. At this time, he is now off pressors and appears to be clinically improving with improving BLE erythema (thus even if there is GAS infection, would not benefit from antitoxin therapy at this time). Can continue daptomycin and ceftriaxone for possible BLE SSTI, including possible erysipelas. If improving without other source of infection identified, may consider transitioning to PO abx (e.g., doxycycline + Augmentin) to complete a 14-day course (longer course given severity of illness and uncertainty about BCx). Continues to have low-grade fevers on the evening of 01/14, of unclear etiology. Also considered possibility of tickborne disease [place]. 01/14 Lyme screen positive, however IgG and IgM confirmation both neg, inconsistent with Lyme disease. Initial LFTs only with mildly elevated AST of 44 and normal ALT, alk phos, and tbili. Hgb has been around 11-12 and plts have been low-normal at 150s-160s (slightly lower than recent baseline). [place] screen neg. Checking Anaplasma, babesia, and Rickettsial panel. Have started doxycycline out of caution. Overall still with some uncertainty about infectious source but reassured by clinical improvement thus far. If fevers, chills, leukocytosis, or other clinical worsening, consider repeating BCx. Previously complaining of aches and pains throughout (including R hip pain, L shoulder pain) though these have resolved. Has bilateral knee and bilateral shoulder replacements. Would continue to monitor these sites. Also considered source of UTI; UA with modest pyuria though UCx NG (<1k colonies) thus not suggestive of UTI. CT A/P with contrast did not show ascending urinary tract abnormalities. Recommendations: - Continue daptomycin and ceftriaxone for now - Start doxycycline 100 mg PO BID - If fevers, chills, leukocytosis, or other clinical worsening, consider repeating BCx - F/u anaplasma, babesia, and Rickettsial panel. - Ensure close follow-up with primary care ID will continue to follow. Isabel Allan, MD, MHS Infectious Diseases [facility]/ID Connect ID Connect direct line: [phone] Admission and Anticipated Discharge Date Admission Date: January 11, 2024 Subjective Subsequent visit was provided via telemedicine using two-way real-time interactive telecommunication between the patient and the telemedicine provider. For the duration of the visit, the provider was performing the assessment from a different facility than the patient. This includesuse of bluetooth stethoscope forauscultationperformed by the telepresenter that the telemedicine provider can hear if described in the physical exam. [employer] contact information: Please call ID Connect Call Center [phone]. (Phone Number For Physician Use Only) After establishing a telemedicine visit, patient was: Patient was verified with two unique identifiers, Patient/authorized rep acknowledged consent and understanding and Gave permission to continue telehealth session Time Spent with Patient: Subsequent => 35 min - T37.8 overnight - Reports that he is tired. Reports intermittent tailbone pain but says this has been present for weeks. Improving BLE edema and pain. No chills or sweats. [place] but does not recall any recent tick bites. Physical Exam Physical Exam: Exam obtained with aid of in-person telepresenter. General: No acute distress HEENT: Conjunctivae non-injected, sclerae anicteric, MMM, OP clear. Resp: Respirations nonlabored. Abd: Soft, nontender, moderately distended Back: Nontender to palpation along spine Ext: No joint warmth or effusions noted. BLE lower extremity erythema, beefy-red and well-circumscribed, appears to be improving from prior and receding from circled borders. Blistering wound on R disla Skin: BLE as above, no other rashes noted. Neuro: Alert & interactive. Grossly non-focal. Psych: Pleasant, appropriate. Results & Data Vital Signs (Past 12 Hours) Vital Signs Temp Pulse Pulse Resp BP BP Pulse Ox 01/16/24 11:57 36.7 C 76 18 90/54 L 92 01/16/24 07:46 94 H 01/16/24 07:46 01/16/24 07:02 37.0 C 93 H 19 119/67 93 01/16/24 04:20 160 H 01/16/24 04:00 36.9 C 91 H 16 121/73 94 01/16/24 03:21 36.7 C 86 18 106/61 97 O2 Del Method O2 Flow Rate 01/16/24 11:57 Nasal Cannula 2 01/16/24 07:46 01/16/24 07:46 Nasal Cannula 2 01/16/24 07:02 Nasal Cannula 2 01/16/24 04:20 01/16/24 04:00 Nasal Cannula 2 01/16/24 03:21 Nasal Cannula 2.0 Diagnostic Findings Diagnostics: 01/12 b/l hip X-ray 1. No fractures within the pelvis or hips. 2. Mild degenerative changes within the hips. 01/11 TTE: hyperdynamic LV, no reported significant valvular heart disease 01/10 CT A/P with IV contrast 1. No acute abnormalities are seen to explain bilateral leg swelling. 2. Right renal hypodensity likely represents a cyst as seen on ultrasound. Micro Data: 01/15 Rickettsial panel: PEND 01/15 Anaplasma/Babesia smear: neg 01/15 Anaplasma DNA: PEND 01/15 Babesia DNA: PEND 01/15 Ehrlichia DNA: PEND 01/15 mono screen: neg 01/14 UCx: PEND 01/14 Strep pneumo UrAg: PEND 01/14 Lyme screen positive; IgG and IgM confirmation: neg 01/14 RVP: neg 01/12 BCx x1: NGTD 01/11 MRSA nares: neg 01/11 UCX: NG <1k colonies Antibiotic Summary: daptomycin (01/13 present) ceftriaxone (01/10 present) doxycycline (01/15 present) prior vancomycin (01/10 01/11)
--- NOTE | 2024-01-16 15:41 | Hospitalist Progress Note ---
Date of Service January 16, 2024 Assessment & Plan (1) Severe sepsis: Plan: Initially concerned over hypovolemic shock, but as the picture clears this is more likely septic shock Transferred to the ICU on 01/11 downgrade 01/14 off pressors utilizing midodrine mono spot and peripheral smear negative, lyme screen + but igg and igm negative, so not consistent with lyme disease UA culture of 01/15/[address] abd pelvis was negative except for Right renal cyst. Recommending outpatient ultrasound for clarification. This should be done via the PCPs office. Lower Extremity Cellulitis appears to be doing better. on daptomycin and ceftriaxone. ID added doxy po as caution with positive lyme screen (2) ELISABETH (acute kidney injury): Plan: Status post acute kidney injury now resolved . With a history of CKD stage III. Creatinine normalized (3) Bilateral cellulitis of lower leg: Plan: Hypomagnesemia. Replaced we will recheck in the morning. History of pulmonary embolism. With failed Coumadin therapy. Patient is on Lovenox 1 mg/kg every 12 this has been ordered appropriately. Patient did have his morning dose at 9 AM today next dose due 9 PM today. Hypertension. now hypotensive holding losartan/HCTZ History of malignant melanoma. Currently on pembrolizumab. Is following with oncology. Morbid obesity. High clinical suspicion of obstructive sleep apnea with recommendation with short-term outpatient follow-up with primary care to arrange formal sleep study. If positive then remains untreated this will contribute to ongoing acute decompensation of right-sided heart failure, etc. Admission and Anticipated Discharge Date Admission Date: January 11, 2024 Subjective pt is sleepy, says does not have appetite called no answer no ability to leave voice mail legs with mild improvement Physical Exam Physical Exam: Pt is awake and alert, he is oriented slightly confused with conversation cardiac is regular lungs diminished LE remain with patches of violaceous skin, well circumscribed anterior lower leg Results & Data Results & Data Vital Signs (Past 12 Hours) Vital Signs Temp Pulse Pulse Resp BP BP Pulse Ox 01/16/24 11:57 98.1 F 76 18 90/54 L 92 01/16/24 07:46 94 H 01/16/24 07:46 01/16/24 07:02 98.6 F 93 H 19 119/67 93 01/16/24 04:20 160 H 08/13/24 04:00 98.4 F 91 H 16 121/73 94 O2 Del Method O2 Flow Rate 01/16/24 11:57 Nasal Cannula 2 01/16/24 07:46 01/16/24 07:46 Nasal Cannula 2 01/16/24 07:02 Nasal Cannula 2 01/16/24 04:20 01/16/24 04:00 Nasal Cannula 2 Laboratory Results review cbc review chemistry PG Care Time/CCT Total # of Minutes Spent Total Time Spent with Patient: Total time spent is greater than 50% in coordination of care (as documented) at patient's floor/unit and/or counseling patient: Coding Level of Care Code 10240 SUB INP/OBS CARE 2/35MIN Diagnoses Severe sepsis A41.9; R65.20 ELISABETH (acute kidney injury) N17.9 Bilateral cellulitis of lower leg L03.116; L03.115
[2024-01-16] MEDS: SODIUM CHLORIDE 0.9% 500 ML IV ONE (20:08)
--- NOTE | 2024-01-16 20:53 | CT Scan Report ---
Exam(s): CT HEAD Without Contrast EXAM: CT Head Without Intravenous Contrast CLINICAL HISTORY: Reason for exam: altered AMS, inability to follow commands. TECHNIQUE: Axial computed tomography images of the head/brain without intravenous contrast. CTDI is 64.54 mGy and DLP is 2061.94 mGy-cm. Automated exposure control was utilized for the study. A dose lowering technique was utilized adhering to the principles of ALARA. Moderate motion artifact, in spite of repeat scanning. COMPARISON: PET CT 07/06/22. FINDINGS: Brain: No mass effect or acute infarct. No acute hemorrhage. Mild atrophy and chronic white matter disease. Ventricles: No hydrocephalus or midline shift. Bones/joints: There is a smooth lucency in the right clivus and lobular lucency right greater wing sphenoid extending from the nasopharynx, nonspecific and not fully evaluated, similar compared with prior PET/CT. Nonemergent MRI neck/skull base mass protocol, with and without contrast may be considered for further evaluation. Soft tissues: No scalp hematoma. Visualized Sinuses: Clear. Mastoid air cells: No mastoid effusion. IMPRESSION: 1. 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 2. No acute infarct, bleed, or acute intracranial abnormality. 3. Moderate motion artifact limits evaluation. Communications: Call Doctor Stroke Electronically signed by: Georgina Blackwell M.D. 01/16/24 20:52 PM
[2024-01-16] MEDS: ACETAMINOPHEN 1,000 MG/100 ML VIAL IV STA (21:02)
[2024-01-16] MEDS: SODIUM CHLORIDE 0.9% 1,000 ML IV ONE (21:10)
--- NOTE | 2024-01-16 22:30 | Communication Note ---
Date of Service: January 16, 2024 Informed by nursing ~8PM that pt acting much different compared to yesterday including body tremoring and inability to answer questions. Blood glucose 95. Stroke alert called. Pt seen at bedside. Pt tachycardic with soft BP, febrile, sats > 90 with NC 2-3L. Pt in no acute distress. When asking pt to perform commands (client relations representative fingers, smile, stick out his tongue, etc) he subtly shakes his head no- otherwise, he does not speak and does not perform the requested commands. Per family at bedside (son and [id number]), this is in gatica contrast to him yesterday where he was conversant. Family notes that pt's was in to visit the pt today around lunch time and she noted that the pt was acting off and not as responsive as usual. True last known well unclear. CT head w/o contrast ordered which showed no acute CVA or hemorrhage. 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 She recommended nonemergent skull base MRI in f/u. Discussed case with fire protection specialist telestroke neurologist (Dr. Caleb Jean) via phone who recommended brain MRI w/ and w/o contrast, MRA head w/o contrast, and MRA neck w/ and w/o contrast. By the time of pt evaluation by telestroke neurologist ~9:45PM, pt starting to feel better and becoming more conversant. Pt had received 1L of NS and 1000mg of tylenol. MRA of head w/o contrast and MRI of the brain w/o contrast completed but pt refusing further scans d/t back pain- no contrast was given. Read of brain MRA and brain MRI w/o contrast showing no ac surendra infarct, no aneurysm, and no large vessel occlusions. Per neuro, if pt agreeable to pursue further testing, would recommend MRA of neck w/ and w/o contrast and brain MRI with contrast. If pt does not wish further MRI/MRA scans, should consider bilateral carotid US. Pt not agreeable to further testing overnight. Repeat lab work ordered including TSH, ammonia, and treponemal studies recommended by telestroke neuro. Lab work showed CBC w/o change, CMP stable with mild increase in Cr (1.83 to 1.95) and AST (44 to 66), ammonia WNL, TSH WNL, lactate WNL, treponemal Ab neg, and procal elevated to 1.51 (up from 0.61). Repeat blood cultures also drawn (cx dated 01/12 and 01/14 NGTD). Previous UAs not convincing for infection and urine cx 01/14 showing no growth- repeat UA pending. CXR showing no focal opacities or acute changes from prior 01/10- possibly some increased interstitial pulmonary edema by my read. Pt's lyme screen positive but IgG and IgM negative. Anaplasma and babesia smears negative- both DNAs pending. Monoscreen negative. Ehrlichia, Q fever, rickettsia, and typhus antibodies pending. Neurology recommended consideration of brain MRI w/ contrast as above and LP if mentation does not improve or again worsens. In the setting of new fever and tachycardia, suspect pt's symptoms most likely related to infectious encephalopathy. Pt's mentation improved after receiving 1L IVF bolus and 1000mg of tylenol as noted above. Will continue IV hydration with NS at 100mL/hr x2 bags. Pt currently being treated with daptomycin, ceftriaxone, and doxy for an infection of unclear etiology. Will d/c ceftriaxone and broaden to zosyn to cover anaerobic organisms; continue doxy and daptomycin. Pt's family (son and [id number]) at bedside and updated throughout the night. Resident Activity Tracking Resident Involvement: Resident Care Provided Care Provided: Adult Hospital Medicine
[2024-01-16] MEDS: SODIUM CHLORIDE 0.9% 1,000 ML IV SCH (23:29)
--- NOTE | 2024-01-16 23:43 | Magnetic Resonance Report ---
Exam(s): MRI HEAD Without Contrast EXAM: MR Head Without Intravenous Contrast CLINICAL HISTORY: Reason for exam: AMS. TECHNIQUE: Magnetic resonance images of the head/brain without intravenous contrast, only axial DWI and T2 images. Patient refused additional imaging. COMPARISON: Head CT done earlier. FINDINGS: Brain: Diffusion weighted imaging is diagnostic throughout the brain. There is no acute infarct. No gross hemorrhage. Mild chronic white matter disease. Ventricles: No hydrocephalus or midline shift. Bones/joints: Stable appearance of the clivus. Soft tissues: No scalp hematoma. Visualized Sinuses: Clear. Mastoid air cells: No mastoid effusion. IMPRESSION: 1. No acute infarct or definite acute abnormality. 2. Limited evaluation as patient refused additional scanning. Electronically signed by: Georgina Blackwell M.D. 01/16/24 23:42 PM
--- NOTE | 2024-01-16 23:45 | Magnetic Resonance Report ---
Exam(s): MRA HEAD Without Contrast EXAM: MR Angiography Head Without Intravenous Contrast CLINICAL HISTORY: Reason for exam: AMS. TECHNIQUE: Magnetic resonance angiography images of the head without intravenous contrast. Moderate motion artifact. COMPARISON: Head CT done earlier. FINDINGS: Right internal carotid artery: Patent. Right anterior cerebral artery: Patent. Right middle cerebral artery: Patent. Right posterior cerebral artery: Patent. origin. Right vertebral artery: Patent. Luminal irregularity may relate to motion artifact. Stenosis not excluded in the setting. Left internal carotid artery: Patent. Left anterior cerebral artery: Patent. Left middle cerebral artery: Patent. Left posterior cerebral artery: Patent. origin. Left vertebral artery: Patent. Basilar artery: Patent. Other: Limited detail, due to motion artifact. IMPRESSION: 1. No aneurysm or large vessel occlusion. 2. Moderate motion artifact limits detail. Electronically signed by: Georgina Blackwell M.D. 01/16/24 23:45 PM
[2024-01-17 00:13] LABS: Basophils # (auto) 0.03 K/uL (0.00-0.20); Basophils % (auto) 0.6 %; Eosinophils % (auto) 10.5 %; Hematocrit (blood only) 33.9 % (42.0-52.0); Hemoglobin 11.2 g/dl (14.0-18.0); Immature Granulocytes # (auto) 0.01 K/uL (0.01-0.20); Immature Granulocytes % (auto) 0.2 %; Lymphocytes # (auto) 1.16 K/uL (1.20-3.40); Lymphocytes % (auto) 24.5 %; Mean Corpuscular Hemoglobin 32.1 pg (25.0-34.0); Mean Corpuscular Volume 97.1 fL (80.0-100.0); Mean Platelet Volume 9.4 fL (9.4-12.4); Monocytes # (auto) 0.92 K/uL (0.11-0.59); Monocytes % (auto) 19.4 %; Neutrophils # (auto) 2.12 K/uL (1.40-6.50); Neutrophils % (auto) 44.8 %; Platelet Count 159 K/uL (130-400); RDW Coefficient of Variation 14.4 % (11.5-14.5); Red Blood Count 3.49 M/uL (4.70-6.10); White Blood Count 4.74 K/ul (4.8-10.8)
[2024-01-17 00:21] LABS: Albumin Level 2.7 gm/dl (3.4-5.0); BUN Creatinine Ratio 13.3 (10-20); Bilirubin,Total 0.6 mg/dl (0.2-1.0); Calcium 8.2 mg/dl (8.6-10.3); Creatinine Clr Calc Pharmacy 39.4 ml/min; Est GFR (African American) 36.8 ml/min; Est GFR (Non-African American) 31.8 ml/min; Globulin 2.7 gm/dl (2.5-4.0); Potassium 4.2 mmol/L (3.5-5.1); Total Protein 5.4 gm/dl (6.0-8.3)
[2024-01-17 00:36] LABS: Thyroid Stimulating Hormone 2.968 uIu/ml (0.300-4.500)
[2024-01-17 00:41] LABS: Procalcitonin 1.51 ng/ml (0-0.5)
[2024-01-17 01:05] LABS: Treponema pallidum RflxConfirm Negative (Negative)
[2024-01-17] MEDS: PIPER/TAZO 4.5g in D5W MINI-B 100 ML IV ONE (01:26)
[2024-01-17] MEDS: PIPERACILLIN/TAZOBACTAM 4.5 GM in DEXTROSE 5% MINI-B 100 ML IV SCH (05:00)
[2024-01-17 06:24] LABS: Basophils # (auto) 0.04 K/uL (0.00-0.20); Basophils % (auto) 0.9 %; Eosinophils # (auto) 0.57 K/uL (0.00-0.50); Eosinophils % (auto) 12.2 %; Hematocrit (blood only) 34.4 % (42.0-52.0); Hemoglobin 11.3 g/dl (14.0-18.0); Immature Granulocytes # (auto) 0.02 K/uL (0.01-0.20); Immature Granulocytes % (auto) 0.4 %; Lymphocytes # (auto) 1.61 K/uL (1.20-3.40); Lymphocytes % (auto) 34.5 %; Mean Corpuscular Hemoglobin 31.8 pg (25.0-34.0); Mean Corpuscular Hgb Conc 32.8 g/dL (32.0-36.0); Mean Corpuscular Volume 96.9 fL (80.0-100.0); Mean Platelet Volume 9.4 fL (9.4-12.4); Monocytes % (auto) 17.1 %; Neutrophils # (auto) 1.63 K/uL (1.40-6.50); Neutrophils % (auto) 34.9 %; Platelet Count 155 K/uL (130-400); RDW Coefficient of Variation 14.2 % (11.5-14.5); RDW Standard Deviation 50.8 fL (36.4-46.3); Red Blood Count 3.55 M/uL (4.70-6.10); White Blood Count 4.67 K/ul (4.8-10.8)
--- NOTE | 2024-01-17 06:55 | XRay Report ---
XR chest 2V PA/lateral CLINICAL HISTORY: fever, concern for aspiration COMPARISON STUDY: Chest CT January 03, 2024. Chest radiograph January 11, 2024. FINDINGS: Bilateral shoulder arthroplasties and a right internal jugular [id number] are in place. A 2.7 cm right middle nodular density corresponds to the pleural-based nodule, as shown on prior CT e xams. This is unchanged. Cardiomegaly is unchanged. There is no evidence for pulmonary edema. There i s no consolidation to suggest. Slight blunting of left costophrenic angle is likely technical. IMPRESSION: No acute cardiopulmonary findings. Consolidation to suggest pneumonia. ACT 112: Negative or not required by law. Electronically signed by: Nino Oakes M.D. 01/17/2024 6:54 AM
[2024-01-17 06:57] LABS: Magnesium 1.6 mg/dl (1.7-2.4)
[2024-01-17 07:02] LABS: C Reactive Protein 9.34 mg/dl (0-0.5); Phosphorus 2.3 mg/dl (2.5-4.9)
[2024-01-17] MEDS: MAGNESIUM SULFATE / D5W 1 GM/100 ML BAG IV ONE (07:37)
--- NOTE | 2024-01-17 07:38 | Hospitalist Progress Note ---
Date of Service January 17, 2024 Assessment & Plan (1) Severe sepsis: Plan: Initially concerned over hypovolemic shock, but as the picture clears this is more likely septic shock Transferred to the ICU on 01/11 downgrade 01/14 off pressors utilizing midodrine mono spot and peripheral smear negative, lyme screen + but igg and igm negative, so not consistent with lyme disease viral pcr negative UA culture of 01/15/24 also negative( second one this stay) blood cultures x 3 negative, ESR 47 01/15 with encephalopathy, MRI/MRA brain negative for acute changes CT abd pelvis was negative except for Right renal cyst. Lower Extremity Cellulitis appears to be doing better. on daptomycin, Zosyn, Doxycycline (2) ELISABETH (acute kidney injury): Plan: Status post acute kidney injury now resolved . With a history of CKD stage III. Creatinine normalized (3) Bilateral cellulitis of lower leg: Plan: Hypomagnesemia. Replaced 01/16 History of pulmonary embolism. With failed Coumadin therapy. Pts PE seems to have been pre 2020 from our records, then a possible new small segmental occlusion seen on 01/02 holding lovenox, will have scd's Hypertension. now hypotensive holding losartan/HCTZ History of malignant melanoma. Currently on pembrolizumab. Is following with oncology. Morbid obesity. High clinical suspicion of obstructive sleep apnea with recommendation with short-term outpatient follow-up with primary care to arrange formal sleep study. If positive then remains untreated this will contribute to ongoing acute decompensation of right-sided heart failure, etc. Admission and Anticipated Discharge Date Admission Date: January 11, 2024 Subjective pt with delerium, likely metabolic encephalopathy overnight, stoke alert, negative brain imaging antibiotics changed will stop daptomycin, continue doxycycline and look to return to ceftriaxone if abd us is negative plan on LP in am Physical Exam Physical Exam: Pt is awake and alert, he is oriented slightly confused with conversation cardiac is regular lungs diminished LE remain with patches of violaceous skin, well circumscribed anterior lower leg at bedside and updated Results & Data Results & Data Vital Signs (Past 12 Hours) Vital Signs Temp Pulse Pulse Pulse Resp BP BP 01/17/24 04:00 98.6 F 106 H 20 146/73 H 01/17/24 00:00 98.2 F 101 H 18 102/57 L 01/16/24 23:48 98.2 F 101 H 18 102/57 L 01/16/24 23:13 101 H 01/16/24 22:05 111 H 16 119/48 L 01/16/24 21:32 102.6 F H 112 H 18 101/49 L 01/16/24 20:57 103.9 F H 112 H 18 109/76 01/16/24 20:00 01/16/24 19:53 103.1 F H 108 H 20 109/53 L Pulse Ox O2 Del Method O2 Flow Rate 01/17/24 04:00 95 Nasal Cannula 2 01/17/24 00:00 95 Nasal Cannula 2 01/16/24 23:48 95 Nasal Cannula 2 01/16/24 23:13 01/16/24 22:05 95 Nasal Cannula 3 01/16/24 21:32 97 Nasal Cannula 3 01/16/24 20:57 95 Nasal Cannula 3 01/16/24 20:00 Nasal Cannula 2 01/16/24 19:53 94 Nasal Cannula 2.0 PG Care Time/CCT Total # of Minutes Spent Total Time Spent with Patient: Total time spent is greater than 50% in coordination of care (as documented) at patient's floor/unit and/or counseling patient: Coding Level of Care Code 24355 SUB INP/OBS CARE 3/50MIN Diagnoses Severe sepsis A41.9; R65.20 ELISABETH (acute kidney injury) N17.9 Bilateral cellulitis of lower leg L03.116; L03.115
[2024-01-17] MEDS ORDERED: METOPROLOL TARTRATE 1 MG/ML VIAL IV PRN (07:47)
[2024-01-17 08:23] LABS: Appearance Urine Cloudy (Clear); Bacteria Urine Automated None Seen (None Seen); Bilirubin Urine Negative (Negative); Blood Urine 3+ (Negative); Color Urine Yellow; Glucose Urine UA Negative (Negative); Ketones Urine Trace (Negative); Leukocyte Esterase Urine 1+ (Negative); Nitrite Urine Negative (Negative); Protein Urine 1+ (Negative); RBC Urine Automated >20 /hpf (0-2); Specific Gravity Urine 1.019 (1.000-1.030); Urobilinogen Urine Negative (Negative); WBC Urine Automated 21-50 /hpf (0-5); pH Urine 5.5 (4.5-7.5)
[2024-01-17 08:55] LABS: Albumin Level 2.7 gm/dl (3.4-5.0); BUN Creatinine Ratio 13.4 (10-20); Calcium 8.1 mg/dl (8.6-10.3); Creatinine Clr Calc Pharmacy 39.8 ml/min; Est GFR (African American) 37.1 ml/min; Phosphorus 2.2 mg/dl (2.5-4.9); Potassium 4.3 mmol/L (3.5-5.1)
--- NOTE | 2024-01-17 09:15 | Electrocardiogram Report ---
Test Reason : Blood Pressure : */* mmHG Vent. Rate : 113 BPM Atrial Rate : 113 BPM P-R Int : 188 ms QRS Dur : 96 ms QT Int : 318 ms P-R-T Axes : 39 -28 18 degrees QTcB Int : 436 ms Sinus tachycardia with Premature atrial complexes Low voltage QRS Borderline ECG When compared with ECG of 12-Jan-2024 16:36, Premature atrial complexes are now Present Confirmed by Henry Abdi ([id number]) on 01/17/2024 9:15:03 AM Referred By: Stef Encarnacion Confirmed By: Henry Abdi
[2024-01-17] MEDS: CEFEPIME 2,000 MG in SYRINGE 0 ML IV SCH (10:33)
--- NOTE | 2024-01-17 10:51 | Nephrology Progress Note ---
Date of Service January 17, 2024 Assessment & Plan (1) Acute kidney injury superimposed on CKD: (2) Severe sepsis: (3) Vomiting: (4) Bilateral cellulitis of lower leg: Plan 78-year-old gentleman with history of stage IIIa CKD, baseline creatinine 1.3 mg/dl , admitted to the hospital with severe sepsis with nausea, vomiting and worsening bilateral lower extremity cellulitis. Blood and urine cultures so far negative. On daptomycin and ceftriaxone. Imaging negative for postrenal obstruction. Acute kidney injury most likely hemodynamically mediated with profound hypotension with sepsis as well as IV contrast exposure. Kidney function started to improve slowly. Noted changes in mental status since yesterday, so far workup has been unremarkable, ? acute illness delirium. --monitor, kidney function, electrolyte, intake and output, expect kidney function to stabilize with improvement in blood pressure --Continue to hold diuretics, KIERAN inhibitor or ARB Admission and Anticipated Discharge Date Admission Date: January 11, 2024 Timothy Kinsey was seen and evaluated this morning. He continues to seem somewhat confused frustrated. Stroke workup last evening including MRI and MRI brain was unremarkable. Vital sign was stable. Kidney function staying relatively stable, electrolyte acceptable. Decent urine output. Hemoglobin stable, no leukocytosis on labs this morning. Recent blood and urine cultures negative. Review of Systems Review of Systems: Detailed review of system was done and pertinent positives and negatives are mentioned above. Physical Exam Constitutional: WD/WN, vitals as above + ill appearing and + altered mental status Eyes: + anicteric sclerae Respiratory: no respiratory distress Auscultation: lungs clear to auscultation bilaterally Cardiovascular: Rate/Rhythm: regular rate and regular rhythm Heart Sounds: normal S1 and normal S2 Extremities: no edema Skin: + dry skin and + erythema; no jaundice Neurologic: no focal motor deficits Psychiatric: Orientation: alert and oriented x 3 Affect: euthymic affect Results & Data Vital Signs (Past 12 Hours) Vital Signs Temp Pulse Pulse Resp BP BP Pulse Ox 01/17/24 07:50 99 H 01/17/24 07:50 01/17/24 07:48 37.9 C H 100 H 20 108/56 L 94 01/17/24 04:00 37.0 C 106 H 20 146/73 H 95 01/17/24 00:00 36.8 C 101 H 18 102/57 L 95 01/16/24 23:48 36.8 C 101 H 18 102/57 L 95 01/16/24 23:13 101 H O2 Del Method O2 Flow Rate 01/17/24 07:50 01/17/24 07:50 Nasal Cannula 2 01/17/24 07:48 Nasal Cannula 2 01/17/24 04:00 Nasal Cannula 2 01/17/24 00:00 Nasal Cannula 2 01/16/24 23:48 Nasal Cannula 2 01/16/24 23:13 PG Care Time/CCT Total # of Minutes Spent Total Time Spent with Patient: Total time spent is greater than 50% in coordination of care (as documented) at patient's floor/unit and/or counseling patient: Coding Level of Care Code 66764 SUB INP/OBS CARE 235MIN Diagnoses Acute kidney injury superimposed on CKD N17.9; N18.9 Severe sepsis A41.9; R65.20 Vomiting R11.10 Bilateral cellulitis of lower leg L03.116; L03.115
--- NOTE | 2024-01-17 13:44 | Electrocardiogram Report ---
Test Reason : Blood Pressure : */* mmHG Vent. Rate : 103 BPM Atrial Rate : 104 BPM P-R Int : 144 ms QRS Dur : 96 ms QT Int : 334 ms P-R-T Axes : * -37 24 degrees QTcB Int : 437 ms Poor data quality, interpretation may be adversely affected Sinus tachycardia Left axis deviation Septal infarct , age undetermined Abnormal ECG When compared with ECG of 16-Jan-2024 21:28, Premature atrial complexes are no longer Present Confirmed by Henry Abdi ([id number]) on 01/17/2024 1:44:43 PM Referred By: Stef Encarnacion Confirmed By: Henry Abdi
--- NOTE | 2024-01-17 14:38 | Infectious Disease Progress Nt ---
Date of Service January 17, 2024 Assessment & Plan (1) Severe sepsis: (2) Hypovolemic shock: (3) Hypomagnesemia: (4) Bilateral cellulitis of lower leg: Plan ID Problem List: #Fevers #Shock, resolved #BLE erythema, c/f cellulitis #Melanoma on pembrolizumab (last received beginning of January 2024) #PE #Antibiotic allergy to: ciprofloxacin (unknown) Impression: Tio Maldonado is a 78 yo M with h/o melanoma on pembrolizumab (last dose begin Jan 2024), hypertension, HLD, CKD, recently admitted for b/l LE cellulitis, fatigue, outpatient CTA prior to his last admission showed chest CTA on 01/02 which revealed 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 Readmitted on 01/10 with n/v, found to have shock requiring pressors and fevers. Initially with c/f worsening BLE cellulitis however with ongoing fevers. ID is consulted for shock and fevers of unclear etiology. He was initially admitted 01/02 01/08, at which time was dx with b/l cellulitis, afebrile with normal WBC then, and ID not involved in his care then. He was treated with ceftriaxone for 6d followed by Keflex for an additional 3d. Patient readmitted on 01/10 with N/V x 48 hours. In the ED, labs were unremarkable, CT AP negative for acute findings; showed R renal cyst. C/f recurrence of b/l LE cellulitis. He was placed on vancomycin and ceftriaxone, which was changed to daptomycin and ceftriaxone. Planned for discharge on 01/11 however became hypotensive and TF to ICU on 01/11. Receiving levophed through port. On 01/11, WBC 6.3, Cr 1.4. UA 6-10 WBCs, UCx NGTD with <1000 colonies. Discussion Patient with hypotension requiring pressors on 01/11 with c/f septic shock initially. Abx were broadened to vancomycin/ceftriaxone then changed to daptomycin/ceftriaxone, on which his hypotension resolved, and pressors which were weaned off automotive wholesale parts advisor on 01/14. However, remains persistently febrile. T38.8 on 01/13, low-grade fevers on the evening of 01/14. On the evening of 01/15, with severe encephalopathy (became tremulous/jerking, nearly non-verbal) was associated with ongoing fevers (TMax 39.9). Overnight abx were changed to pip-tazo, then to cefepime. On 01/16 in the AM, his mental status had nearly completely resolved back to baseline; he was noted to have an erythematous rash on his face and worsening erythema of his LLE. The pts hypotension (resolved), fevers, rash, and encephalopathy (waxing/waning) are of unclear etiology. Note that pt last received pembrolizumab at the beginning of Jan 2024 (<2 weeks prior to admission) and wonder if the pts rash, fevers, and potentially evening waxing and waning mental status are related to checkpoint inhibitor-related immune adverse reaction. Has been associated with fevers, rash, and even encephalitis. Recommend to discuss with oncology about the possibility of pembrolizumab-related adverse effect; if suspected then would consider steroids. Considered possible recurrence of BLE cellulitis, however this has been worsening/persistent even with antibiotic therapy and would not explain his full clinical picture. Thus far without evidence of a bacterial infection. 8/ BCx (though obtained after abx) are NGTD; do wonder about a missed bacteremia given no initial BCx being drawn. TTE with hyperdynamic LV, no reported significant valvular heart disease. 01/11 MRSA nares negative though nasal can be discordant from SSTI. Wondered if BLE cellulitis may actually be erysipelas given the beefy-red and well-demarcated appearance. Erysipelas is often caused by group A Strep which can be associated with a toxic shock picture, which may explain pts hypotension. However, it is unusual that pt has a re-presentation despite having recently been treated with ceftriaxone -> Keflex for cellulitis and improving on this regimen. If fevers, chills, leukocytosis, or other clinical worsening, consider repeating BCx. Previously complaining of aches and pains throughout (including R hip pain, L shoulder pain) though these have resolved. Has bilateral knee and bilateral shoulder replacements. Would continue to monitor these sites. Also considered source of UTI; UA with modest pyuria though UCx NG (<1k colonies) thus not suggestive of UTI. CT A/P with contrast did not show ascending urinary tract abnormalities. Pt with some R-sided abdominal pain on 01/16 may consider further imaging (e.g., RUQUS). Did also consider possibility of drug fever (noting eosinophilia 10-12% with AEC up to 570) though peripheral eosinophilia can also be attributed to effect from pembrolizumab. Also considered possibility of tickborne disease [place] 01/14 Lyme screen positive, however IgG and IgM confirmation both neg, inconsistent with Lyme disease. Initial LFTs only with mildly elevated AST of 44 and normal ALT, alk phos, and tbili. Hgb has been around 11-12 and plts have been low-normal at 150s-160s (slightly lower than recent baseline). Galax screen neg. Checking Anaplasma, babesia, and Rickettsial panel. Have started doxycycline out of caution on 01/15. Did consider the possibility of babesia though would not expect such as waxing/waning if further clinical worsening may consider starting azithromycin + atovaquone. Given his encephalopathy, would consider obtaining LP (studies as below). Given that his facial rash and LLE erythema worsened on 01/16 even while on broad abx, lower suspicion for cellulitis causing his full clinical picture. May consider skin Bx if LLE rash persistent/worsening (would send for pathology and bacterial/fungal/AFB cultures). Can continue cefepime for now (while evaluating for possible GI source) though may consider transitioning back to ceftriaxone or stopping in the coming days. Can stop daptomycin given that pt without improvement on this and low suspicion for MRSA. Can continue doxycycline for now. Recommendations: - Continue cefepime for now - Continue doxycycline 100 mg PO BID for now - Stop daptomycin - Recommend to discuss with oncology about the possibility of pembrolizumab- related adverse effect; if suspected then would consider steroids - If will be undergoing LP, would obtain cell count/diff, protein, glucose, cultures (bacterial, fungal, AFB), encephalitis/meningitis panel (including HSV/VZV/CMV/EBV, Enterovirus), save additional CSF for potential additional add- on testing, maybe cytology if there is enough - If further clinical worsening, may consider starting azithromycin + atovaquone for possible babesia - F/u Anaplasma, babesia, and Rickettsial panel - F/u RUQUS - Consider skin Bx if LLE rash persistent/worsening (would send for pathology and bacterial/fungal/AFB cultures) ID will continue to follow. Isabel Lemus MD, [facility] Infectious Diseases [facility] direct line: [phone] Admission and Anticipated Discharge Date Admission Date: January 11, 2024 Subjective Subsequent visit was provided via telemedicine using two-way real-time interactive telecommunication between the patient and the telemedicine provider. For the duration of the visit, the provider was performing the assessment from a different facility than the patient. This includesuse of [employer] s tethoscope forauscultationperformed by the telepresenter that the telemedicine provider can hear if described in the physical exam. [employer] contact information: Please call [facility] Call Center [phone]. (Phone Number For Physician Use Only) After establishing a telemedicine visit, patient was: Patient was verified with two unique identifiers, Patient/authorized rep acknowledged consent and understanding and Gave permission to continue telehealth session Time Spent with Patient: Subsequent => 55 min - Febrile and encephalopathic overnight. TMax 39.9 overnight. Per pts DIL, the pt was tremulous and was unable to answer questions. Did not know name or age, was only squeezing hands with R arm, and was not communicating. WBC 4.67. - 01/15 brain MRI aborted early given pt refusal and was not able to obtain with contrast; did not show any acute infarct or obvious acute abnormality. - This AM, pts mental status appears to be significantly improved. He is able to respond to most of my questions though some of his responses are slowed. He reports that he had some R-sided hip pain and previously with L ankle pain. No L ankle pain at the time of interview. - DIL noting waxing and waning erythematous rash that appeared on pts face last week. Also noted that pt with worsening erythema in face and feet - Reports last Keytruda infusion was beginning of January (less than 2 weeks ago) Physical Exam Physical Exam: Exam obtained with aid of in-person telepresenter. General: No acute distress HEENT: Conjunctivae non-injected, sclerae anicteric, MMM, OP clear. Face with maculopapular rash and mildly erythematous throughout. Resp: Respirations nonlabored. Abd: Soft, moderately distended. Some R-sided mid and lower abdominal discomfort with deep palpation. Ext: No joint warmth or effusions noted. Slight R hip grimace with deep palpation. BLE lower extremity erythema L disla appears to be more erythematous today compared with yesterday and slightly outside the marked borders, worse than prior. Wound on R disla with dressing in place. Skin: BLE as above, no other rashes noted. Neuro: Alert & interactive. Grossly non-focal. Able to communicate though some responses are slowed. Psych: Pleasant, appropriate. Results & Data Vital Signs (Past 12 Hours) Vital Signs Temp Pulse Pulse Resp BP BP Pulse Ox 01/17/24 11:00 37.7 C H 97 H 18 125/68 95 01/17/24 07:50 99 H 01/17/24 07:50 01/17/24 07:48 37.9 C H 100 H 20 108/56 L 94 01/17/24 04:00 37.0 C 106 H 20 146/73 H 95 O2 Del Method O2 Flow Rate 01/17/24 11:00 Nasal Cannula 2 01/17/24 07:50 01/17/24 07:50 Nasal Cannula 2 01/17/24 07:48 Nasal Cannula 2 01/17/24 04:00 Nasal Cannula 2 Diagnostic Findings Diagnostics: 01/15 brain MRI (without contrast due to abbreviated exam) 1. No acute infarct or definite acute abnormality. 2. Limited evaluation as patient refused additional scanning. 01/12 b/l hip X-ray 1. No fractures within the pelvis or hips. 2. Mild degenerative changes within the hips. 01/11 TTE: hyperdynamic LV, no reported significant valvular heart disease 01/10 CT A/P with IV contrast 1. No acute abnormalities are seen to explain bilateral leg swelling. 2. Right renal hypodensity likely represents a cyst as seen on ultrasound. Micro Data: 01/16 UCx: PEND 01/15 BCx x1: PEND 01/15 T. pallidum Ab: neg 01/15 Rickettsial panel: PEND 01/15 Anaplasma/Babesia smear: neg 01/15 Anaplasma DNA: PEND 01/15 Babesia DNA: PEND 01/15 Ehrlichia DNA: PEND 01/15 mono screen: neg 01/14 UCx: NG <1k colonies 01/14 BCx x1: NGTD 01/14 Strep pneumo UrAg: PEND 01/14 Lyme screen positive; IgG and IgM confirmation: neg 01/14 RVP: neg 01/12 BCx x1: NGTD 01/11 MRSA nares: neg 01/11 UCX: NG <1k colonies Antibiotic Summary: doxycycline (01/15 present) cefepime (01/16) prior pip-tazo (01/15) daptomycin (01/13 01/16) ceftriaxone (01/10 01/15) vancomycin (01/10 01/11)
[2024-01-17] MEDS: ACETAMINOPHEN 1,000 MG/100 ML VIAL IV STA (21:04)
--- NOTE | 2024-01-18 07:20 | Ultrasound Report ---
ABDOMINAL ULTRASOUND, RIGHT UPPER QUADRANT HISTORY: Acute right upper quadrant abdominal pain eval for cholecystitis. COMPARISON: CT 01/11/2024 FINDINGS: Pancreas: The pancreas demonstrates a normal echotexture. Liver: The liver measures 17 cm in length and demonstrates increased parenchymal echogenicity with mi ld marginal nodularity. No hepatic mass identified. Gallbladder: No gallbladder wall thickening. No gallstones. CBD: 6 mm Right kidney: Cortical thinning. No hydronephrosis. IMPRESSION: 1. Unremarkable gallbladder. 2. No biliary ductal dilation. 3. Hepatic steatosis with probable cirrhosis. ACT 112: Negative or not required by law. Electronically signed by: Dominick George M.D. 01/18/2024 7:18 AM
[2024-01-18 07:57] LABS: Albumin Level 2.7 gm/dl (3.4-5.0); BUN Creatinine Ratio 12.6 (10-20); Calcium 8.4 mg/dl (8.6-10.3); Creatinine Clr Calc Pharmacy 39.6 ml/min; Est GFR (African American) 36.2 ml/min; Est GFR (Non-African American) 31.2 ml/min; Phosphorus 2.4 mg/dl (2.5-4.9); Potassium 4.3 mmol/L (3.5-5.1)
--- NOTE | 2024-01-18 08:59 | Oncology Consultation ---
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 He has elevated CRP and ESR which although could be due to underlying infection, is also seen with ICI induced encephalitis. Would recommend starting him on dexamethasone 10 mg IV every 6 hours for now. Once symptoms improve, could switch to prednisone 1 mg/kg/day or methylprednisolone 1 mg/kg/day. -Consider obtaining EEG Thank you for this consult. Will continue monitoring patient while in the hospital. Please feel free to call if you have any further questions. History of Present Illness Attending Physician: Dustin Stewart MD History of Present Illness 78-year-old gentleman with history of PE , stage III melanoma for which he is currently on adjuvant pembrolizumab started on 01/12/2023. He received cycle 9 of treatment on 01/02/2024 and presented to the ER with nausea, vomiting and was found to be hypotensive for which she required pressors. Has also had persistent fevers. Was initially treated for bilateral lower extremity cellulitis with broad-spectrum antibiotics. However, patient continued to have temperature spikes, altered mental status for which he underwent lumbar puncture today. Per review of infectious disease notes, LP not suggestive of bacterial meningitis. 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 At the time of evaluating patient today, he was very confused and oriented x 1. Allergies Allergy/AdvReac Type Severity Reaction Status Date / Time gabapentin Allergy Intermediate Rash Verified 01/11/24 14:50 tramadol Allergy Intermediate Rash and Verified 01/11/24 14:50 itchiness hydrocodone Allergy Mild itchy Verified 01/11/24 14:50 oxycodone Allergy Mild itchy Verified 01/11/24 14:50 carbamazepine Allergy Unknown Unknown Verified 01/11/24 14:50 ciprofloxacin Allergy Unknown Unknown Verified 01/11/24 14:50 Home Medications Medication Instructions Recorded Confirmed Type lisinopril 10 1 tab PO QAM #0 tabs 08/31/12 01/11/24 History mg-hydrochlorothiazide 12.5 mg tablet pravastatin 20 mg tablet 20 mg PO HS ##0 02/28/16 01/11/24 History allopurinol 100 mg tablet 100 mg PO BID 90 days #180 tabs 12/22/21 01/11/24 Rx acetaminophen 500 mg tablet 1,000 mg PO Q8 PRN Pain 10/28/22 01/11/24 History (Tylenol Extra Strength) polyethylene glycol 3350 17 17 g PO DAILY PRN Constipation 01/06/23 01/11/24 History gram/dose oral powder (Miralax) pregabalin 150 mg capsule (Lyrica) 300 mg (2 x 150 mg) PO BID #360 08/16/23 01/11/24 Rx caps fluorometholone 0.1 % eye 1 drp OPB DAILY PRN Eye 01/03/24 01/11/24 History drops,suspension Inflammation enoxaparin 120 mg/0.8 mL 120 mg (0.8 mL) subcut Q12H 30 01/04/24 01/11/24 Rx subcutaneous syringe (Lovenox) days #48 mL cephalexin 500 mg capsule 500 mg PO Q6H 3 days #12 caps 01/09/24 01/11/24 Rx furosemide 40 mg tablet (Lasix) 40 mg PO DAILY PRN Edema #30 tabs 01/09/24 01/11/24 Rx potassium citrate 10 mEq (1,080 10 meq PO BID 01/11/24 01/11/24 History mg) tablet,extended release Patient History Medical History Osteoarthritis Surgical History History of left shoulder replacement History of right shoulder replacement History of total left knee replacement (TKR) History of total right knee replacement (TKR) with revision History of colonoscopy History of inguinal hernia repair History of cancer surgery Left side of neck resection + lymph node removal History of tooth extraction History of tonsillectomy and adenoidectomy History of sinus surgery History of cystoscopy History of cataract surgery bilateral History of back surgery L4-L5 with screws Family History Family/Other Diabetes Heart disease Nephrolithiasis Other No family history of adverse response to anesthesia Social History Smoking Status: Never smoker Second Hand Exposure: No; Do You Dip or Chew Tobacco: No; Hx Alcohol Use: No Hx Substance Use: No Preferred Language: Urdu Communication Ability: Effective Male Model Required: No Beliefs That Will Affect Care: None Current Living Situation: Spouse current occupational status: retired Feels Safe at Home: Yes Seatbelt Use: always Assistive Devices: Cane, Walker and Wheelchair Results & Data Vital Signs (Past 12 Hours) Vital Signs Temp Pulse Pulse Resp BP Pulse Ox O2 Del Method 01/18/24 04:35 36.8 C 88 18 114/57 L 94 Nasal Cannula 01/17/24 23:07 37.7 C H 82 18 105/65 94 Room Air 01/17/24 22:04 84 01/17/24 21:23 38.4 C H 01/17/24 21:01 38.2 C H O2 Flow Rate 01/18/24 04:35 4.0 01/17/24 23:07 01/17/24 22:04 01/17/24 21:23 01/17/24 21:01
[2024-01-18 09:46] LABS: Total Protein CSF 66.2 mg/dl (15-45)
[2024-01-18 10:02] LABS: Appearance CSF Clear; CSF Count Tube # 3; CSF Xanthrochromic No xanthochromia; Color CSF Colorless; Red Blood Cell CSF Manual 11 (0-); White Blood Cell CSF Manual 44 (0-5)
[2024-01-18 10:28] LABS: Mononuclear WBC CSF Manual 100 %
[2024-01-18 10:59] LABS: Ferritin 505.7 ng/ml (8-388)
[2024-01-18 11:07] LABS: Cryptococcus neoformans/ga PCR Not Detected (NotDetected); Cytomegalovirus PCR Not Detected (NotDetected); Enterovirus PCR Not Detected (NotDetected); Escherichia coli K1 PCR Not Detected (NotDetected); Haemophilius influenzae PCR Not Detected (NotDetected); Herpes Simplex Virus 1 PCR Not Detected (NotDetected); Herpes Simplex Virus 2 PCR Not Detected (NotDetected); Human Herpes Virus 6 PCR Not Detected (NotDetected); Human Parechovirus PCR Not Detected (NotDetected); Listeria monocytogenes PCR Not Detected (NotDetected); Neisseria meningitidis PCR Not Detected (NotDetected); Streptococcus agalactiae PCR Not Detected (NotDetected); Streptococcus pneumoniae PCR Not Detected (NotDetected); Varicella Zoster Virus PCR Not Detected (NotDetected)
--- NOTE | 2024-01-18 11:11 | Nephrology Progress Note ---
Date of Service January 18, 2024 Assessment & Plan (1) Acute kidney injury superimposed on CKD: (2) Severe sepsis: (3) Vomiting: (4) Bilateral cellulitis of lower leg: Plan 78-year-old gentleman with history of stage IIIa CKD, baseline creatinine 1.3 mg/dl , admitted to the hospital with severe sepsis with nausea, vomiting and worsening bilateral lower extremity cellulitis. Blood and urine cultures so far negative. On daptomycin and ceftriaxone. Imaging negative for postrenal obstruction. Acute kidney injury most likely hemodynamically mediated with profound hypotension with sepsis as well as IV contrast exposure. Kidney function has been staying relatively stable with acceptable electrolyte last few days. Noted changes in mental status since yesterday, so far workup has been unremarkable, ? acute illness delirium. -- Encourage p.o. intake, keep net positive, monitor kidney function, electrolyte, intake and output, expect kidney function to stabilize with improvement in blood pressure --Continue to hold diuretics, KIERAN inhibitor or ARB Admission and Anticipated Discharge Date Admission Date: January 11, 2024 Timothy Kinsey was seen and evaluated this morning. He continues to seem somewhat confused. Stroke workup last evening including MRI and MRI brain was unremarkable. Vital sign was stable. Kidney function staying relatively stable, electrolyte acceptable. Hemoglobin stable, no leukocytosis on labs this morning. Recent blood and urine cultures negative. Daptomycin was stopped and started on doxycycline yesterday, in addition to cefepime. Decent urine output, net positive. Review of Systems Review of Systems: Detailed review of system was done and pertinent positives and negatives are mentioned above. Physical Exam Constitutional: WD/WN, vitals as above + ill appearing and + altered mental status; no acute distress Eyes: + anicteric sclerae Respiratory: no respiratory distress Auscultation: lungs clear to auscultation bilaterally Cardiovascular: Rate/Rhythm: regular rate and regular rhythm Heart Sounds: normal S1 and normal S2 Extremities: + edema (Trace edema with erythema) Gastrointestinal (Abdomen): Inspection/Auscultation: abdomen normal to inspection Musculoskeletal: Extremities: extremities normal to inspection Skin: + dry skin and + erythema; no jaundice Neurologic: no focal motor deficits Psychiatric: Orientation: alert and oriented x 3 Affect: euthymic affect Results & Data Vital Signs (Past 12 Hours) Vital Signs Temp Pulse Resp BP BP Pulse Ox O2 Del Method 01/18/24 10:31 36.4 C L 89 19 97/62 L 93 Nasal Cannula 01/18/24 08:14 36.6 C 91 H 20 125/67 94 Nasal Cannula 01/18/24 04:35 36.8 C 88 18 114/57 L 94 Nasal Cannula O2 Flow Rate 01/18/24 10:31 3 01/18/24 08:14 3 01/18/24 04:35 4.0 PG Care Time/CCT Total # of Minutes Spent Total Time Spent with Patient: Total time spent is greater than 50% in coordination of care (as documented) at patient's floor/unit and/or counseling patient: Coding Level of Care Code 81363 SUB INP/OBS CARE 2/35MIN Diagnoses Acute kidney injury superimposed on CKD N17.9; N18.9 Severe sepsis A41.9; R65.20 Vomiting R11.10 Bilateral cellulitis of lower leg L03.116; L03.115
--- NOTE | 2024-01-18 11:46 | Infectious Disease Progress Nt ---
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 Readmitted on 01/10 with n/v, found to have shock requiring pressors and fevers. Initially with c/f worsening BLE cellulitis however with ongoing fevers. ID is consulted for shock and fevers of unclear etiology. He was initially admitted 01/02 01/08, at which time was dx with b/l cellulitis, afebrile with normal WBC then, and ID not involved in his care then. He was deana roro with ceftriaxone for 6d followed by Keflex for an additional 3d. Patient readmitted on 01/10 with N/V x 48 hours. In the ED, labs were unremarkable, CT AP negative for acute findings; showed R renal cyst. C/f recurrence of b/l LE cellulitis. He was placed on vancomycin and ceftriaxone, which was changed to daptomycin and ceftriaxone. Planned for discharge on 01/11 however became hypotensive and TF to ICU on 01/11. Receiving levophed through port. On 01/11, WBC 6.3, Cr 1.4. UA 6-10 WBCs, UCx NGTD with <1000 colonies. Discussion Patient with hypotension requiring pressors on 01/11 with c/f septic shock initially. Abx were broadened to vancomycin/ceftriaxone then changed to daptomycin/ceftriaxone, on which his hypotension resolved, and pressors which were weaned off braid maker on 01/14. However, remains persistently febrile. T38.8 on 01/13, low-grade fevers on the evening of 01/14. On the evening of 01/15, with severe encephalopathy (became tremulous/jerking, nearly non-verbal) was associated with ongoing fevers (TMax 39.9). Overnight abx were changed to pip- tazo, then to cefepime. On 01/16 in the AM, his mental status had nearly completely resolved back to baseline; he was noted to have an erythematous rash on his face and worsening erythema of his LLE. The pts hypotension (resolved), fevers, rash, and encephalopathy (waxing/waning) are of unclear etiology. Note that pt last received pembrolizumab at the beginning of Jan 2024 (<2 weeks prior to admission) and wonder if the pts rash, fevers, and potentially evening waxing and waning mental status are related to checkpoint inhibitor-related immune adverse reaction. Has been associated with fevers, rash, and even encephalitis. Recommend to discuss with oncology about the possibility of pembrolizumab-related adverse effect; if suspected then would consider steroids. Considered possible recurrence of BLE cellulitis, however this has been worsening/persistent even with antibiotic therapy and would not explain his full clinical picture. Thus far without evidence of a bacterial infection. 8/ BCx (though obtained after abx) are NGTD; do wonder about a missed bacteremia given no initial BCx being drawn. TTE with hyperdynamic LV, no reported significant valvular heart disease. 01/11 MRSA nares negative though nasal can be discordant from SSTI. Wondered if BLE cellulitis may actually be erysipelas given the beefy-red and well-demarcated appearance. Erysipelas is often caused by group A Strep which can be associated with a toxic shock picture, which may explain pts hypotension. However, it is unusual that pt has a re-presentation despite having recently been treated with ceftriaxone -> Keflex for cellulitis and improving on this regimen. If fevers, chills, leukocytosis, or other clinical worsening, consider repeating BCx. Previously complaining of aches and pains throughout (including R hip pain, L shoulder pain) though these have resolved. Has bilateral knee and bilateral shoulder replacements. Would continue to monitor these sites. Also considered source of UTI; UA with modest pyuria though UCx NG (<1k colonies) thus not suggestive of UTI. CT A/P with contrast did not show ascending urinary tract abnormalities. Pt with some R-sided abdominal pain on 01/16 may consider further imaging (e.g., RUQUS). Did also consider possibility of drug fever (noting eosinophilia 10-12% with AEC up to 570) though peripheral eosinophilia can also be attributed to effect from pembrolizumab. Also considered possibility of tickborne disease [place] 01/14 Lyme screen positive, however IgG and IgM confirmation both neg, inconsistent with Lyme disease. Initial LFTs only with mildly elevated AST of 44 and normal ALT, alk phos, and tbili. Hgb has been around 11-12 and plts have been low-normal at 150s-160s (slightly lower than recent baseline). [place] screen neg. Have started doxycycline out of caution on 01/15. Did consider the possibility of babesia though would not expect such as waxing/waning. Babesia/Anaplasma smear neg. Pending Anaplasma, Ehrlichia, and Rickettsial panel. Given that his facial rash and LLE erythema worsened on 01/16 even while on broad abx, lower suspicion for cellulitis causing his full clinical picture. May consider skin Bx if LLE rash persistent/worsening (would send for pathology and bacterial/fungal/AFB cultures). Given his encephalopathy, LP was obtained on 01/17 showing LP today showing tube 3: clear, colorless, no xanthrochromia, 44 WBCs (100% monos), 11 RBCs, glu 63, prot 66.2. Other studies pending. These results are difficult to interpret there is some pleocytosis suggesting inflammation/meningitis however a monocytic predominance would not be expected for most bacterial or viral meningitis. A monocytic pleocytosis can be seen with pembrolizumab/checkpoint inhibitor meningoencephalitis (https://www.ncbi.nlm.nih.gov/pmc/articles/HVW3001425/). Overall, his waxing and waning clinical picture is not suggestive of bacterial meningitis. Listeria less likely but may have monocytic profile as well. Out of caution, will start acyclovir (HSV) and ampicillin (Listeria) while awaiting CSF studies. Can continue cefepime for now though may consider transitioning back to ceftriaxone or stopping in the coming days. Can continue doxycycline for now. Recommendations: - Continue cefepime for now - Continue doxycycline 100 mg PO BID for now - Start acyclovir 10 mg/kg IV q12h (renally dosed) - Start ampicillin 2g IV q6h (renally dosed) - If further worsening, consider starting IV ampicillin - Recommend to discuss with oncology about the possibility of pembrolizumab- related adverse effect; if suspected then would consider steroids - If will be undergoing LP, would obtain cell count/diff, protein, glucose, cultures (bacterial, fungal, AFB), encephalitis/meningitis panel (including HSV/VZV/CMV/EBV, Enterovirus), save additional CSF for potential additional add- on testing, maybe cytology if there is enough - F/u Anaplasma, Ehrlichia, Rickettsial panel - Consider skin Bx if LLE rash persistent/worsening (would send for pathology and bacterial/fungal/AFB cultures) ID will continue to follow. Isabel Lemus MD, S Infectious Diseases Admission and Anticipated Discharge Date Admission Date: January 11, 2024 Subjective This patient recommendation is based on a telemedicine consult request which was completed asynchronously through chart review and information provided by the primary physician. The patient was not seen or examined today. The evaluation is consultative in nature and all patient care and treatment decisions can either be accepted or rejected by the patient's primary hospital-based treating physician using their own independent medical judgment for their patient. Time Spent Reviewing Chart: 31+ minutes PLEASE NOTE: E-consult was performed given that patient was in a procedure at the time of attempted visit, combined with limited telepresenter availability today. - Remains febrile, T39.9 overnight, T38.4 this AM - LP today showing tube 3: clear, colorless, no xanthrochromia, 44 WBCs (100% monos), 11 RBCs, glu 63, prot 66.2. Other studies pending - Pt reportedly tired but conversant this AM Results & Data Vital Signs (Past 12 Hours) Vital Signs Temp Pulse Resp BP BP Pulse Ox O2 Del Method 01/18/24 11:24 36.5 C 90 18 102/62 92 Nasal Cannula 01/18/24 10:54 36.5 C 90 20 108/64 Nasal Cannula 01/18/24 10:31 36.4 C L 89 19 97/62 L 93 Nasal Cannula 01/18/24 10:24 36.5 C 92 H 20 80/40 L 94 Nasal Cannula 01/18/24 09:24 36.5 C 91 H 18 89/40 L 93 Nasal Cannula 01/18/24 08:14 36.6 C 91 H 20 125/67 94 Nasal Cannula 01/18/24 04:35 36.8 C 88 18 114/57 L 94 Nasal Cannula O2 Flow Rate 01/18/24 11:24 2 01/18/24 10:54 2 01/18/24 10:31 3 01/18/24 10:24 2 01/18/24 09:24 2 01/18/24 08:14 3 01/18/24 04:35 4.0 Diagnostic Findings Diagnostics: 01/16 RUQUS 1. Unremarkable gallbladder. 2. No biliary ductal dilation. 3. Hepatic steatosis with probable cirrhosis 01/15 brain MRI (without contrast due to abbreviated exam) 1. No acute infarct or definite acute abnormality. 2. Limited evaluation as patient refused additional scanning. 01/12 b/l hip X-ray 1. No fractures within the pelvis or hips. 2. Mild degenerative changes within the hips. 01/11 TTE: hyperdynamic LV, no reported significant valvular heart disease 01/10 CT A/P with IV contrast 1. No acute abnormalities are seen to explain bilateral leg swelling. 2. Right renal hypodensity likely represents a cyst as seen on ultrasound. Micro Data: 01/16 LP tube 3: clear, colorless, no xanthrochromia, 44 WBCs (100% monos), 11 RBCs, glu 63, prot 66.2 Bact Cx: PEND Fungal Cx: PEND AFB Cx: PEND VDRL: PEND Lyme Ab: PEND Lyme PCR: PEND Crypto Ag: PEND CMV, VZV, HSV-1/2, Enterovirus: PEND EBV: PEND Bacterial meningitis panel: PEND 01/16 MRSA nares: neg 01/16 UCx: PEND 01/15 BCx x1: PEND 01/15 T. pallidum Ab: neg 01/15 Rickettsial panel: PEND 01/15 Anaplasma/Babesia smear: neg 01/15 Anaplasma DNA: PEND 01/15 Babesia DNA: neg 01/15 Ehrlichia DNA: PEND 01/15 mono screen: neg 01/14 UCx: NG <1k colonies 01/14 BCx x1: NGTD 01/14 Strep pneumo UrAg: PEND 01/14 Lyme screen positive; IgG and IgM confirmation: neg 01/14 RVP: neg 01/12 BCx x1: NGTD 01/11 MRSA nares: neg 01/11 UCX: NG <1k colonies Antibiotic Summary: doxycycline (01/15 present) cefepime (01/16 present) acyclovir (01/17 present) ampicillin (01/17 present) prior pip-tazo (01/15) daptomycin (01/13 01/16) ceftriaxone (01/10 01/15) vancomycin (01/10 01/11)
[2024-01-18 11:47] LABS: Folate (Folic Acid),Ser orPlas 16.17 ng/ml (>5.38)
--- NOTE | 2024-01-18 12:55 | Fluoroscopy Report ---
Fluoroscopic guided lumbar puncture INDICATION: Altered mental status PROCEDURE: Procedure and risks were explained. Informed consent was obtained. A final timeout was com pleted. The patient was placed prone on the fluoroscopic exam table. The lower lumbar was prepped and draped in sterile fashion. 1% lidocaine was utilized for skin anesthesia. Utilizing fluoroscopic guidance, a 22-gauge spinal needle was advanced into the intrathecal space at the L4-5 level. Permanent spot images were obtained. Approximately 9 mL of clear CSF fluid was remove d and sent to lab for analysis. The needle was removed and Band-Aid applied. The patient tolerated th e procedure well. Vital signs will be monitored on the floor prior to discharge. Fluoroscopy time 24 seconds. Study dose is 35.68 mGy. IMPRESSION: Lumbar puncture as above. Performed, dictated, and signed by Tino Rosas PA-C; to be co-signed by Dr. Dominick George. Electronically signed by: Dominick George M.D. 01/18/2024 1:07 PM
[2024-01-18] MEDS: AMPICILLIN 2,000 MG in SODIUM CHLOR 0.9% MINI-B 100 ML IV SCH (13:10)
[2024-01-18] MEDS: ACYCLOVIR SOD IV SCH (13:15)
[2024-01-18] MEDS: DEXTROSE 5% IV SCH (13:15)
[2024-01-18] MEDS ORDERED: DEXAMETHASONE SOD INJ 4 MG/ML VIAL IV SCH (15:15)
[2024-01-18] MEDS: MIDODRINE HCL 2.5 MG TAB PO ONE (16:29)
[2024-01-18] MEDS: dexAMETHasone 10 MG in SYRINGE 0 ML IV SCH (16:29)
[2024-01-18] MEDS: SODIUM CHLORIDE 0.9% 500 ML IV ONE (16:32)
[2024-01-18] MEDS ORDERED: CARBOHYDRATES FOR HYPOGLYCEMIA PO PRN (17:36)
[2024-01-18] MEDS ORDERED: GLUCAGON FOR INJ 1 MG VIAL SQ PRN (17:36)
[2024-01-18] MEDS ORDERED: GLUCOSE 10 TAB/TUBE PO PRN (17:36)
[2024-01-18] MEDS ORDERED: DEXTROSE 50% 50 ML SYRINGE IV PRN (17:36)
[2024-01-18] MEDS ORDERED: GLUCOSE 40% GEL 15 GM TUBE PO PRN (17:36)
--- NOTE | 2024-01-18 17:36 | Hospitalist Progress Note ---
Date of Service January 18, 2024 Assessment & Plan (1) Severe sepsis: Plan: Initially concerned over hypovolemic shock, septic shock, has been culture negative considering maybe more check point inhibitor reaction/encephalitis Transferred to the ICU on 01/11 downgrade 01/14 off pressors utilizing midodrine mono spot and peripheral smear negative, lyme screen + but igg and igm negative, so not consistent with lyme disease viral pcr negative UA culture of 01/15/24 also negative( second one this stay) blood cultures x 3 negative, ESR 47 01/15 with encephalopathy, MRI/MRA brain negative for acute changes or metastatic disease LP on 01/17 wtih 44 wbc 100%monocytes, protein 66, glucose 63, not consistent with pneumococcal bacterial meningitis but certainly with inflamation, cannot rule our viral illness, or other atypical infections, ID started ampicillin, continues cefepime and starts acycolvir, on doxy until voltage tester lyme results 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 Lower Extremity Cellulitis appears to be doing better. (2) ELISABETH (acute kidney injury): Plan: Status post acute kidney injury now resolved . With a history of CKD stage III. Creatinine normalized (3) Bilateral cellulitis of lower leg: Plan: Hypomagnesemia. Replaced 01/16 History of pulmonary embolism. With failed Coumadin therapy. Pts PE seems to have been pre 2020 from our records, then a possible new small segmental occlusion seen on 01/02 holding lovenox until 24 hours after LP, , will have scd's Hypertension. now hypotensive holding losartan/HCTZ, additional fluid bolus 01/17 and additional midodrine History of malignant melanoma. Currently on pembrolizumab monthly . Is following with oncology appreciate inpatient consult . Morbid obesity. High clinical suspicion of obstructive sleep apnea with recommendation with short-term outpatient follow-up with primary care to arrange formal sleep study. If positive then remains untreated this will contribute to ongoing acute decompensation of right-sided heart failure, etc. Admission and Anticipated Discharge Date Admission Date: January 11, 2024 Subjective intermittently febrile overnight, drowsy, blood pressure soft underwent LP Pleocytosis monocyte predominant,concern for check point encephalitis Physical Exam Physical Exam: celia complexion, legs look improved fatigued cardiac is regular lungs diminished abdomen is soft mildly tender Results & Data Results & Data Vital Signs (Past 12 Hours) Vital Signs Temp Pulse Resp BP BP Pulse Ox O2 Del Method 01/18/24 15:59 97.9 F 84 87/50 L 01/18/24 15:30 97.5 F L 83 19 87/50 L 91 Nasal Cannula 01/18/24 11:24 97.7 F 90 18 102/62 92 Nasal Cannula 01/18/24 10:54 97.7 F 90 20 108/64 Nasal Cannula 01/18/24 10:31 97.5 F L 89 19 97/62 L 93 Nasal Cannula 01/18/24 10:24 97.7 F 92 H 20 80/40 L 94 Nasal Cannula 01/18/24 09:24 97.7 F 91 H 18 89/40 L 93 Nasal Cannula 01/18/24 08:14 97.9 F 91 H 20 125/67 94 Nasal Cannula O2 Flow Rate 01/18/24 15:59 01/18/24 15:30 3 01/18/24 11:24 2 01/18/24 10:54 2 01/18/24 10:31 3 01/18/24 10:24 2 01/18/24 09:24 2 01/18/24 08:14 3 Laboratory Results review cbc review chemistry review LP discussed case with infectious disease and oncology PG Care Time/CCT Total # of Minutes Spent Total Time Spent with Patient: Total time spent is greater than 50% in coordination of care (as documented) at patient's floor/unit and/or counseling patient: Coding Level of Care Code 02013 SUB INP/OBS CARE 3/50MIN Diagnoses Severe sepsis A41.9; R65.20 ELISABETH (acute kidney injury) N17.9 Bilateral cellulitis of lower leg L03.116; L03.115
[2024-01-18] MEDS: PANTOprazole 40 MG TAB PO SCH (20:10)
[2024-01-18] MEDS ORDERED: predniSONE 20 MG TAB PO SCH (21:00)
[2024-01-18] MEDS: INSULIN ASPART PER UNIT CHARGE SC SCH (21:38)
[2024-01-19 03:33] LABS: Babesia microti DNA Not Detected (Not Detected)
--- NOTE | 2024-01-19 06:01 | CT Scan Report ---
Exam(s): CT HEAD Without Contrast EXAM: CT Head Without Intravenous Contrast CLINICAL HISTORY: Reason for exam: unwitnessed fall. TECHNIQUE: Axial computed tomography images of the head/brain without intravenous contrast. CTDI is 38.03 mGy and DLP is 625.8 mGy-cm. Automated exposure control was utilized for the study. A dose lowering technique was utilized adhering to the principles of ALARA. COMPARISON: Prior brain MRI and head CT from January 16, 2024. FINDINGS: Brain: Unremarkable. No hemorrhage. No significant white matter disease. No edema. Ventricles: Unremarkable. No ventriculomegaly. Bones/joints: There is no erosive soft tissue mass in the clivus and right sphenoid . No acute fracture. Soft tissues: Unremarkable. Sinuses: Unremarkable as visualized. No acute sinusitis. Mastoid air cells: Unremarkable as visualized. No mastoid effusion. IMPRESSION: No evidence of acute intracranial pathology. There is no erosive soft tissue mass within the clivus and right sphenoid wing concerning for neoplasm. Electronically signed by: Jeannette Mitchell MD 01/19/24 06:00 AM
--- NOTE | 2024-01-19 06:02 | Communication Note ---
Date of Service: January 19, 2024 Alerted by nursing that pt had an unwitnessed fall. It is unclear if pt injured his head as he was confused and unable to tell nursing what happened. No clear head injury/abrasions noted. Last dose of anticoagulant 01/16. Out of an abundance of caution, CT head w/o contrast ordered to evaluate for hemorrhage which was negative. Head CT did redemonstrate basal skull mass seen on prior head CT (01/16/2024) and brain MRI (08/08/2023). Resident Activity Tracking Resident Involvement: Resident Care Provided Care Provided: Adult [facility] Medicine
[2024-01-19 07:21] LABS: Basophils # (auto) 0.03 K/uL (0.00-0.20); Basophils % (auto) 0.4 %; Eosinophils # (auto) 0.02 K/uL (0.00-0.50); Eosinophils % (auto) 0.3 %; Hematocrit (blood only) 37.5 % (42.0-52.0); Hemoglobin 12.8 g/dl (14.0-18.0); Immature Granulocytes # (auto) 0.03 K/uL (0.01-0.20); Immature Granulocytes % (auto) 0.4 %; Lymphocytes # (auto) 1.45 K/uL (1.20-3.40); Lymphocytes % (auto) 21.4 %; Mean Corpuscular Hemoglobin 32.1 pg (25.0-34.0); Mean Corpuscular Hgb Conc 34.1 g/dL (32.0-36.0); Mean Platelet Volume 9.7 fL (9.4-12.4); Monocytes # (auto) 0.15 K/uL (0.11-0.59); Monocytes % (auto) 2.2 %; Neutrophils # (auto) 5.09 K/uL (1.40-6.50); Neutrophils % (auto) 75.3 %; Platelet Count 180 K/uL (130-400); RDW Coefficient of Variation 13.6 % (11.5-14.5); RDW Standard Deviation 47.4 fL (36.4-46.3); Red Blood Count 3.99 M/uL (4.70-6.10); White Blood Count 6.77 K/ul (4.8-10.8)
[2024-01-19 07:38] LABS: Albumin Level 2.9 gm/dl (3.4-5.0); Bilirubin,Total 0.6 mg/dl (0.2-1.0); C Reactive Protein 8.72 mg/dl (0-0.5); Calcium 8.5 mg/dl (8.6-10.3); Creatinine Clr Calc Pharmacy 41.3 ml/min; Est GFR (African American) 38.8 ml/min; Est GFR (Non-African American) 33.4 ml/min; Globulin 2.8 gm/dl (2.5-4.0); Phosphorus 2.4 mg/dl (2.5-4.9); Potassium 4.6 mmol/L (3.5-5.1); Total Protein 5.7 gm/dl (6.0-8.3)
[2024-01-19] MEDS: allopurinoL 100 MG TAB PO SCH (08:10)
--- NOTE | 2024-01-19 08:14 | Progress Note ---
Date of Service January 19, 2024 Assessment & Plan (1) Altered mental status: (2) History of malignant melanoma: Plan -AMS persists despite starting steroids yesterday. Would continue with current dose of dexamethasone. If AMS due to Keytruda, would expect improvement in symptoms within 24 to 48 hours of instituting steroids. -Although imaging has not been suggestive leptomeningeal metastasis, will follow-up on cytology from LP as this could cause AMS as well -Will obtain spep with matias, Continue immunoglobulins, serum free light chains to evaluate for plasma cell dyscrasia given soft tissue mass noted on imaging. Admission and Anticipated Discharge Date Admission Date: January 11, 2024 Subjective Still very confused and agitated. Had a fall yesterday . CT head revealed no evidence of acute intracranial pathology, erosive soft tissue mass within the clivus and right sphenoid wing concerning for neoplasm. Has received 3 doses of dexamethasone 10mg Results & Data Vital Signs (Past 12 Hours) Vital Signs Temp Pulse Pulse Resp BP Pulse Ox O2 Del Method 01/19/24 07:29 36.6 C 95 H 19 123/69 94 Nasal Cannula 01/19/24 03:29 36.6 C 104 H 18 134/91 95 Nasal Cannula 01/18/24 23:11 36.5 C 89 22 116/63 93 Nasal Cannula 01/18/24 21:57 87 01/18/24 21:57 87 01/18/24 21:45 Nasal Cannula O2 Flow Rate 01/19/24 07:29 3 01/19/24 03:29 01/18/24 23:11 01/18/24 21:57 01/18/24 21:57 01/18/24 21:45 2
[2024-01-19 09:35] LABS: Immunoglobulin A 335.2 mg/dl (70-400); Immunoglobulin G 993.9 mg/dl (635-1741); Immunoglobulin M 62.8 mg/dl (45-281)
[2024-01-19 10:10] LABS: Ehrlichia chaff DNA Bld Negative (Negative)
--- NOTE | 2024-01-19 10:30 | Infectious Disease Progress Nt ---
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 #Peripheral eosinophilia, resolved after steroids started 01/17 #Melanoma stage III on pembrolizumab (last received beginning of 01/02/24) #Shock, resolved #PE #Antibiotic allergy to: ciprofloxacin (unknown) Impression: Tio Maldonado is a 78 yo M with h/o stage III melanoma on pembrolizumab (started 01/2023, cycle 9 on 01/02/24), hypertension, HLD, CKD, recently admitted for b/l LE cellulitis, fatigue, outpatient CTA prior to his last admission showed chest CTA on 01/02 which revealed 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 Readmitted on 01/10 with n/v, found to have shock requiring pressors and fevers. Initially with c/f worsening BLE cellulitis however with ongoing fevers. ID is consulted for shock and fevers of unclear etiology. He was initially admitted 01/02 01/08, at which time was dx with b/l cellulitis, afebrile with normal WBC then, and ID not involved in his care then. He was treated with ceftriaxone for 6d followed by Keflex for an additional 3d. Patient readmitted on 01/10 with N/V x 48 hours. In the ED, labs were unremarkable, CT AP negative for acute findings; showed R renal cyst. C/f recurrence of b/l LE cellulitis. He was placed on vancomycin and ceftriaxone, which was changed to daptomycin and ceftriaxone. Planned for discharge on 01/11 however became hypotensive and TF to ICU on 01/11. Receiving levophed through port. On 01/11, WBC 6.3, Cr 1.4. UA 6-10 WBCs, UCx NGTD with <1000 colonies. Timeline - Patient with hypotension requiring pressors on 01/11 with c/f septic shock initially. 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 However, remained persistently febrile from 01/13 01/16. - T38.8 on 01/13 - Low-grade fevers on the evening of 01/14 - On the evening of 01/15, with severe encephalopathy (became tremulous/jerking, nearly non-verbal) was associated with ongoing fevers (TMax 39.9). Overnight abx were changed to pip-tazo, then to cefepime. - On 01/16 in the AM, his mental status had nearly completely resolved back to baseline; he was noted to have an erythematous rash on his face and worsening erythema of his LLE. Febrile to T38.4 in the evening. - On 01/17, afebrile throughout the day. 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 Initially mentating OK, worsened AMS throughout the day. In the afternoon, dexamethasone was started. - 01/18: Afebrile, AMS very poor (unable to respond to most questions or commands). Worsening facial rash (malar + nose distribution). Discussion The pts hypotension (resolved), fevers, facial rash, and encephalopathy (waxing/waning) are of unclear etiology. Current leading ddx is immune checkpoint inhibitor-related encephalitis and drug reaction, also consider drug- induced lupus (which could be from pembrolizumab or another drug e.g., allopurinol). Have evaluated for multiple infectious etiologies and treated with numerous empiric abx without improvement. Pt last received pembrolizumab on 01/02/24 (<2 weeks prior to admission). Immune checkpoint inhibitor adverse reactions include rash, fevers, and even meningoencephalitis. LP was obtained on 01/17 showing LP today showing tube 3: clear, colorless, no xanthochromia, 44 WBCs (100% monos), 11 RBCs, glu 63, prot 66.2. Thus far negative CSF PCR panel including negative Crypto, Listeria, HSV/VZV. Other studies pending. While there is some pleocytosis suggesting inflammation/meningitis, a mononuclear predominance would not be expected for most bacterial or viral meningitis (may see in Listeria, but PCR panel negative). A mononuclear pleocytosis can be seen with pembrolizumab/checkpoint inhibitor meningoencephalitis (https://www.ncbi.nlm.nih.gov/pmc/articles/UHV7648773). Overall, his waxing and waning clinical picture is not suggestive of bacterial meningitis. Note that pts facial rash in the malar + nose distribution. Also considered possibility of drug fever and drug-induced lupus (note eosinophilia 10-12% with AEC up to 570 prior to starting steroids) which can be attributed to both pembrolizumab and/or allopurinol. Would discuss possibility of drug-induced lupus with rheumatology (and dermatology, if available). Considered other infectious ddx. Pt with BLE erythema which can be from cellulitis/erysipelas vs. drug reaction. However, at his previous admission he already received a full course of abx treatment, and he continued to have waxing and waning erythema of his BLE while inpatient (even while on broad abx including daptomycin + ceftriaxone). 01/12 BCx (though obtained after abx) are NGTD. Previously complaining of aches and pains throughout (including R hip pain, L shoulder pain) though these have resolved. Has bilateral knee and bilateral shoulder replacements; would continue to monitor these sites. UA with modest pyuria though UCx NG (<1k colonies) thus not suggestive of UTI. CT A/P with contrast did not show ascending urinary tract abnormalities. Also considered possibility of tickborne disease given that pt lives in a [facility]. 01/14 Lyme screen positive, however IgG and IgM confirmation both neg, inconsistent with Lyme disease. Initial LFTs only with mildly elevated AST of 44 and normal ALT, alk phos, and tbili. Drew screen neg. Babesia/Anaplasma smear neg, Babesia PCR negative. Pending Anaplasma, Ehrlichia, and Rickettsial panel. 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 Have changed cefepime back to ceftriaxone (given negative BCx and CSF testing so far; also so that cefepime neurotoxicity is not contributing to encephalopathy), and can continue out of caution for time being though lower suspicion for infectious process at this time. Can also continue doxycycline for now. Would also recommend to hold allopurinol out of caution in case of contribution to drug reaction. 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 Dr. Alana Emanuel will resume care of the ID service on Monday. Isabel Lemus MD, MHS Infectious Diseases [facility] direct line: [phone] Admission and Anticipated Discharge Date Admission Date: January 11, 2024 Subjective Subsequent visit was provided via telemedicine using two-way real-time interactive telecommunication between the patient and the telemedicine provider. For the duration of the visit, the provider was performing the assessment from a different facility than the patient. This includesuse of bluetooth stethoscope forauscultationperformed by the telepresenter that the telemedicine provider can hear if described in the physical exam. [facility] contact information: Please call [facility] Call Center [phone]. (Phone Number For Physician Use Only) After establishing a telemedicine visit, patient was: Patient was verified with two unique identifiers, Patient/authorized rep acknowledged consent and understanding and Gave permission to continue telehealth session Time Spent with Patient: Subsequent => 55 min - Started dexamethasone on 01/17 - Afebrile throughout 01/17 and this AM. WBC 6.77 - 01/17 ferritin 505.7 - Mental status was good yesterday AM but worsened throughout the day, mental status is very poor this AM and unable to respond to questions or commands Physical Exam Physical Exam: Exam obtained with aid of in-person telepresenter. General: Drowsy, poorly responsive to questioning HEENT: Conjunctivae non-injected, sclerae anicteric, MMM, OP clear. Face with erythematous flaking macular rash concentrated on cheeks and nose, face mildly erythematous throughout; slight open wound above R eyebrow. Resp: Respirations nonlabored. Abd: Mildly distended. Does not grimace to palpation Ext: No joint warmth or effusions noted. Does not grimace to palpation. BLE with stable erythema of bilateral shins. Skin: As above Neuro: Confused, does not respond to most questions or simple commands. Psych: Pleasant, appropriate. Results & Data Vital Signs (Past 12 Hours) Vital Signs Temp Pulse Resp BP Pulse Ox O2 Del Method O2 Flow Rate 01/19/24 10:12 36.3 C L 96 H 21 113/65 94 Nasal Cannula 3 01/19/24 07:29 36.6 C 95 H 19 123/69 94 Nasal Cannula 3 01/19/24 03:29 36.6 C 104 H 18 134/91 95 Nasal Cannula 01/18/24 23:11 36.5 C 89 22 116/63 93 Nasal Cannula Diagnostic Findings Diagnostics: 01/18 CT head No evidence of acute intracranial pathology. There is no erosive soft tissue mass within the clivus and right sphenoid wing concerning for neoplasm. 01/16 RUQUS 1. Unremarkable gallbladder. 2. No biliary ductal dilation. 3. Hepatic steatosis with probable cirrhosis 01/15 brain MRI (without contrast due to abbreviated exam) 1. No acute infarct or definite acute abnormality. 2. Limited evaluation as patient refused additional scanning. 01/12 b/ hip X-ray 1. No fractures within the pelvis or hips. 2. Mild degenerative changes within the hips. 01/11 TTE: hyperdynamic LV, no reported significant valvular heart disease 01/10 CT A/P with IV contrast 1. No acute abnormalities are seen to explain bilateral leg swelling. 2. Right renal hypodensity likely represents a cyst as seen on ultrasound. Micro Data: 01/16 LP tube 3: clear, colorless, no xanthochromia, 44 WBCs (100% monos), 11 RBCs, glu 63, prot 66.2 Bact Cx: PEND; stain: moderate WBCs, no organisms Fungal Cx: PEND AFB Cx: PEND Meningitis PCR panel: neg, including negative: Crypto, CMV, Enterovirus, HSV-1/2, VZV, Listeria, Neisseria meningitis, Strep pneumo VDRL: PEND Lyme Ab: PEND Lyme PCR: PEND Crypto Ag (separate): PEND WNV: PEND EBV: PEND cytology: PEND 01/16 MRSA nares: neg 01/16 UCx: NG <1k colonies 01/15 BCx x1: NGTD 01/15 T. pallidum Ab: neg 01/15 Rickettsial panel: PEND 01/15 Anaplasma/Babesia smear: neg 01/15 Anaplasma DNA: PEND 01/15 Babesia DNA: neg 01/15 Ehrlichia DNA: PEND 01/15 mono screen: neg 01/14 UCx: NG <1k colonies 01/14 BCx x1: NGTD 01/14 Strep pneumo UrAg: neg 01/14 Lyme screen positive; IgG and IgM confirmation: neg 01/14 RVP: neg 01/12 BCx x1: NGTD 01/11 MRSA nares: neg 01/11 UCX: NG <1k colonies Antibiotic Summary: doxycycline (01/15 present) ceftriaxone (01/10 01/15, 01/18 present) prior cefepime (01/16 01/17) acyclovir (01/17) ampicillin (01/17 01/18) pip-tazo (01/15) daptomycin (01/13 01/16) vancomycin (01/10 01/11) other notable meds dexamethasone (started 01/17)
[2024-01-19] MEDS: cefTRIAXone SODIUM 2,000 MG/50 ML BAG IV SCH (11:02)
--- NOTE | 2024-01-19 12:23 | Nephrology Progress Note ---
Date of Service January 19, 2024 Assessment & Plan (1) Acute kidney injury superimposed on CKD: (2) Severe sepsis: (3) Vomiting: (4) Bilateral cellulitis of lower leg: Plan 78-year-old gentleman with history of stage IIIa CKD, baseline creatinine 1.3 mg/dl , admitted to the hospital with severe sepsis with nausea, vomiting and worsening bilateral lower extremity cellulitis. Blood and urine cultures so far negative. On daptomycin and ceftriaxone. Imaging negative for postrenal obstruction. Acute kidney injury most likely hemodynamically mediated with profound hypotension with sepsis as well as IV contrast exposure. Kidney function has been staying relatively stable with acceptable electrolyte last few days. 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 Has been afebrile since then. Kidney function staying relatively stable over last 4 days. -- Encourage p.o. intake, keep net positive, monitor kidney function, electr olyte, intake and output, expect kidney function to stabilize with improvement in blood pressure --Continue to hold diuretics, KIERAN inhibitor or ARB Will sign off. Admission and Anticipated Discharge Date Admission Date: January 11, 2024 Timothy Tio remains somewhat encephalopathic. Kidney function has been stable electrolyte acceptable. Results & Data Vital Signs (Past 12 Hours) Vital Signs Temp Pulse Pulse Resp BP Pulse Ox O2 Del Method 01/19/24 10:12 36.3 C L 96 H 21 113/65 94 Nasal Cannula 01/19/24 08:00 93 H 01/19/24 08:00 Nasal Cannula 01/19/24 07:29 36.6 C 95 H 19 123/69 94 Nasal Cannula 01/19/24 03:29 36.6 C 104 H 18 134/91 95 Nasal Cannula O2 Flow Rate 01/19/24 10:12 3 01/19/24 08:00 01/19/24 08:00 2 01/19/24 07:29 3 01/19/24 03:29 PG Care Time/CCT Total # of Minutes Spent Total Time Spent with Patient: Total time spent is greater than 50% in coordination of care (as documented) at patient's floor/unit and/or counseling patient: Coding Level of Care Code 73640 SUB INP/OBS CARE 1/25MIN Diagnoses Acute kidney injury superimposed on CKD N17.9; N18.9 Severe sepsis A41.9; R65.20 Vomiting R11.10 Bilateral cellulitis of lower leg L03.116; L03.115
--- NOTE | 2024-01-19 14:57 | Hospitalist Progress Note ---
Date of Service January 19, 2024 Assessment & Plan (1) Severe sepsis: Plan: Initially concerned over hypovolemic shock, septic shock, has been culture negative considering maybe more check point inhibitor reaction/encephalitis Transferred to the ICU on 01/11 downgrade 01/14 off pressors utilizing midodrine blood pressure stable, no leukocytosis mono spot and peripheral smear negative, lyme screen + but igg and igm negative, so not consistent with lyme disease viral pcr negative UA culture of 01/15/24 also negative( second one this stay) blood cultures x 3 negative, ESR 47 01/15 with encephalopathy, MRI/MRA brain negative for acute changes or metastatic disease LP on 01/17 wtih 44 wbc 100%monocytes, protein 66, glucose 63, not consistent with pneumococcal bacterial meningitis but certainly with inflamation, cannot rule our viral illness, or other atypical infections, ID stopped ampicillin, cefepime and acycolvir, on ceftriaxone iv and doxy concern for check point inhibitor encephalitis, oncology agrees to start dexamethasone 10 mg q6h until mental status improved added thiamine iv will send level CT abd pelvis was negative except for Right renal cyst. Lower Extremity Cellulitis continues improving. Pt has had basilar skull surgery when 18 and this accounts for small changes seen on CT/MRI did go over with Radiology also discussed with Rheumatology regarding rash, does not feel looks to be Rheumatologic or drug related, will try ketoconazole for seborrheic dermatitis (2) ELISABETH (acute kidney injury): Plan: Status post acute kidney injury now resolved . With a history of CKD stage III. Creatinine normalized (3) Bilateral cellulitis of lower leg: Plan: Hypomagnesemia. Replaced 01/16 History of pulmonary embolism. With failed Coumadin therapy. Pts PE seems to have been pre 2020 from our records, then a possible new small segmental occ lusion seen on 01/02 holding lovenox until 24 hours after LP, ,will restart in am 01/19 if some improvement Hypertension. now hypotensive holding losartan/HCTZ, additional fluid bolus 01/17 and additional midodrine History of malignant melanoma. Currently on pembrolizumab monthly . Is following with oncology appreciate inpatient consult encouraged to use dexamethasone. Morbid obesity. High clinical suspicion of obstructive sleep apnea with recommendation with short-term outpatient follow-up with primary care to arrange formal sleep study. If positive then remains untreated this will contribute to ongoing acute decompensation of right-sided heart failure, etc. Admission and Anticipated Discharge Date Admission Date: January 11, 2024 Subjective pt remains encephalopathic, slightly worse than 01/18 labs and renal function stable Physical Exam Physical Exam: celia complexion, legs look improved fatigued cardiac is regular lungs diminished abdomen is soft mildly tender neurologically does not follow command question if facial rash is bouchra derm Results & Data Results & Data Vital Signs (Past 12 Hours) Vital Signs Temp Pulse Pulse Resp BP Pulse Ox O2 Del Method 01/19/24 10:12 97.3 F L 96 H 21 113/65 94 Nasal Cannula 01/19/24 08:00 93 H 01/19/24 08:00 Nasal Cannula 01/19/24 07:29 97.9 F 95 H 19 123/69 94 Nasal Cannula 01/19/24 03:29 97.9 F 104 H 18 134/91 95 Nasal Cannula O2 Flow Rate 01/19/24 10:12 3 01/19/24 08:00 01/19/24 08:00 2 01/19/24 07:29 3 01/19/24 03:29 Laboratory Results review cbc review chemistry PG Care Time/CCT Total # of Minutes Spent Total Time Spent with Patient: Total time spent is greater than 50% in coordination of care (as documented) at patient's floor/unit and/or counseling patient: Coding Level of Care Code 94230 SUB INP/OBS CARE 3/50MIN Diagnoses Severe sepsis A41.9; R65.20 ELISABETH (acute kidney injury) N17.9 Bilateral cellulitis of lower leg L03.116; L03.115
[2024-01-19] MEDS: THIAMINE HCL 500 MG in SODIUM CHLORIDE 0.9% 50 ML IV STA (15:24)
[2024-01-19] MEDS: KETOCONAZOLE 2% CR 15 GM TUBE EXT SCH (15:24)
[2024-01-19] MEDS: SODIUM CHLORIDE 0.9% 1,000 ML IV SCH (18:26)
[2024-01-20 07:34] LABS: Albumin Level 2.8 gm/dl (3.4-5.0); BUN Creatinine Ratio 20.2 (10-20); Calcium 8.5 mg/dl (8.6-10.3); Creatinine Clr Calc Pharmacy 45.1 ml/min; Est GFR (African American) 42.6 ml/min; Est GFR (Non-African American) 36.7 ml/min; Phosphorus 2.2 mg/dl (2.5-4.9); Potassium 4.3 mmol/L (3.5-5.1)
[2024-01-20] MEDS: THIAMINE HCL 200 MG in SODIUM CHLORIDE 0.9% 50 ML IV SCH (09:18)
[2024-01-20] MEDS ORDERED: ACETAMINOPHEN 10MG/ML Custom 1,000 MG in EMPTY BAG 0 ML IV PRN (10:58)
--- NOTE | 2024-01-20 11:02 | Hospitalist Progress Note ---
Date of Service January 20, 2024 Assessment & Plan (1) Severe sepsis: Plan: Initially concerned over hypovolemic shock, septic shock, has been culture negative considering maybe more check point inhibitor reaction/encephalitis Transferred to the ICU on 01/11 downgrade 01/14 never leukocytosis , fevers stopped with steroids mono spot and peripheral smear negative, lyme screen + but igg and igm negative, so not consistent with lyme disease viral pcr negative UA culture of 01/15/24 also negative( second one this stay) blood cultures x 3 negative, ESR 47 01/15 with encephalopathy, MRI/MRA brain negative for acute changes or metastatic disease LP on 01/17 wtih 44 wbc 100%monocytes, protein 66, glucose 63, not consistent with pneumococcal bacterial meningitis but certainly with inflamation, cannot rule our viral illness, or other atypical infections, ID stopped ampicillin, cefepime and acycolvir, on ceftriaxone iv and doxy concern for check point inhibitor encephalitis, oncology agrees to start dexamethasone 10 mg q6h until mental status improved added thiamine iv will send level maybe slight improvement 01/19 CT abd pelvis was negative except for Right renal cyst. Lower Extremity Cellulitis continues improving. Pt has had basilar skull surgery when 18 and this accounts for small changes seen on CT/MRI did go over with Radiology also discussed with Rheumatology regarding rash, does not feel looks to be Rheumatologic or drug related, will try ketoconazole for seborrheic dermatitis (2) ELISABETH (acute kidney injury): Plan: Status post acute kidney injury now resolved . With a history of CKD stage III. Creatinine normalized (3) Bilateral cellulitis of lower leg: Plan: Hypomagnesemia. Replaced 01/16 History of pulmonary embolism. With failed Coumadin therapy. Pts PE seems to have been pre 2020 from our records, then a possible new small segmental occlusion seen on 01/02 holding lovenox until 24 hours after LP, ,will restart in am 01/19 if some improvement Hypertension. now hypotensive holding losartan/HCTZ, additional fluid bolus and additional midodrine History of malignant melanoma. previously on pembrolizumab monthly . Is following with oncology appreciate inpatient consult encouraged to use dexamethasone. Morbid obesity. High clinical suspicion of obstructive sleep apnea with recommendation with short-term outpatient follow-up with primary care to arrange formal sleep study. If positive then remains untreated this will contribute to ongoing acute decompensation of right-sided heart failure, etc. Admission and Anticipated Discharge Date Admission Date: January 11, 2024 Subjective awakens to voice, looks around, not following commands, does not appear to be in distress family at bedside and updated Physical Exam Physical Exam: celia complexion, legs look improved fatigued cardiac is regular lungs diminished abdomen is soft mildly tender neurologically does not follow commands, looks and may try to respond, question if facial rash is bouchra derm Results & Data Results & Data Vital Signs (Past 12 Hours) Vital Signs Temp Pulse Pulse Resp BP Pulse Ox O2 Del Method 01/20/24 08:00 Nasal Cannula 01/20/24 07:54 98.8 F 88 18 141/79 H 95 Nasal Cannula 01/20/24 03:01 97.7 F 94 H 19 149/87 H 93 Nasal Cannula 01/20/24 00:00 93 H O2 Flow Rate 01/20/24 08:00 2 01/20/24 07:54 3 01/20/24 03:01 01/20/24 00:00 Laboratory Results review chemistry and glucose PG Care Time/CCT Total # of Minutes Spent Total Time Spent with Patient: Total time spent is greater than 50% in coordination of care (as documented) at patient's floor/unit and/or counseling patient: Coding Level of Care Code 46384 SUB INP/OBS CARE 3/50MIN Diagnoses Severe sepsis A41.9; R65.20 ELISABETH (acute kidney injury) N17.9 Bilateral cellulitis of lower leg L03.116; L03.115
[2024-01-20] MEDS: FAMOTIDINE 20MG IV PUSH 20 MG/5 ML SYR IV SCH (12:00)
[2024-01-20] MEDS: ACETAMINOPHEN 1,000 MG/100 ML VIAL IV PRN (15:53)
[2024-01-20] MEDS: DICLOFENAC SOD 1% GEL 100 GM TUBE EXT PRN (15:59)
[2024-01-21] MEDS: MELATONIN 3 MG TAB PO PRN (00:37)
[2024-01-21] MEDS: LIDOCAINE 5% 1 PATCH TD STA (03:40)
[2024-01-21 08:47] LABS: EBV DNA Quant PCR Not Detected copies/mL; EBV DNA Quant Source CSF
[2024-01-21] MEDS: dexAMETHasone 10 MG in SYRINGE 0 ML IV SCH ×2 (09:47→21:01)
[2024-01-21 12:02] LABS: Cryptococcal Antigen Not Detected (Not Detected); Source CSF; West Nile Virus, PCR Source CSF; West Nile Virus, PCR, CSF NOT DETECTED (NOT DETECTED)
--- NOTE | 2024-01-21 12:32 | Hospitalist Progress Note ---
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 With a history of CKD stage III. Creatinine normalized (3) Bilateral cellulitis of lower leg: Plan: Hypomagnesemia. Replaced 01/16 History of pulmonary embolism. With failed Coumadin therapy. Pts PE seems to have been pre 2020 from our records, then a possible new small segmental occlusion seen on 01/02 holding lovenox until 24 hours after LP, ,will restart in am 01/19 if some improvement Hypertension. now hypotensive holding losartan/HCTZ, additional fluid bolus 01/17 and additional midodrine History of malignant melanoma. previously on pembrolizumab monthly . Is following with oncology appreciate inpatient consult encouraged to use dexamethasone. Morbid obesity. High clinical suspicion of obstructive sleep apnea with recommendation with short-term outpatient follow-up with primary care to arrange formal sleep study. If positive then remains untreated this will contribute to ongoing acute decompensation of right-sided heart failure, etc. Admission and Anticipated Discharge Date Admission Date: January 11, 2024 Subjective pt more awake and more fluent of speech, is oriented of place now taking po, still some frustration of not being able to speak fluently Physical Exam Physical Exam: celia complexion, legs look improved, perhaps redness from sed drem fatigued cardiac is regular lungs diminished abdomen is soft mildly tender neurologically much more appropriate today question if facial rash is bouchra derm Results & Data Results & Data Vital Signs (Past 12 Hours) Vital Signs Temp Pulse Resp BP BP Pulse Ox O2 Del Method 01/21/24 10:57 97.5 F L 75 18 143/77 H 92 Room Air 01/21/24 07:11 97.7 F 74 18 159/84 H 92 Room Air 01/21/24 02:44 97.9 F 70 18 150/93 H 94 Room Air PG Care Time/CCT Total # of Minutes Spent Total Time Spent with Patient: Total time spent is greater than 50% in coordination of care (as documented) at patient's floor/unit and/or counseling patient: Coding Level of Care Code 17878 SUB INP/OBS CARE 3/50MIN Diagnoses Severe sepsis A41.9; R65.20 ELISABETH (acute kidney injury) N17.9 Bilateral cellulitis of lower leg L03.116; L03.115
[2024-01-21] MEDS ORDERED: LORazepam 0.5 MG TAB PO ONE (13:00)
[2024-01-21] MEDS: LORazepam 0.5 MG TAB PO PRN (17:06)
[2024-01-21] MEDS: GADOBUTROL 30ML VIAL IV ONE (17:54)
--- NOTE | 2024-01-21 19:17 | Magnetic Resonance Report ---
Brain MRI WITH AND WITHOUT CONTRAST HISTORY: Altered mental status. eval for encephalitis TECHNIQUE: Multiplanar multisequence MRI of the brain was performed both before and after the intrave nous administration of contrast. COMPARISON STUDY: Brain MRI 01/16/2024. Head CT 01/19/2024. FINDINGS: No areas of restricted diffusion to suggest acute infarction. The midline structures are in tact. Postoperative changes again noted within the sphenoid sinuses/posterior nasopharynx. No fluid l evels within the paranasal sinuses. Trace bilateral mastoid effusions are noted. Prior bilateral lens replacement. Otherwise, the orbits are unremarkable. The major vascular flow-voids at the skull base are maintained. The ventricles and sulci demonstrate mild age-related involutional changes. Mild per iventricular white matter T2 hyperintensity favors a rash ischemic change. This is similar to the trevin or study. No extra-axial fluid collections. Postcontrast sequences show no areas of abnormal enhancem ent within the brain parenchyma. However, there is questionable pachymeningeal enhancement/thickening most pronounced on the right best seen on coronal image 15. IMPRESSION: 1. No acute infarct or intracranial hemorrhage. 2. There is questionable mild pachymeningeal enhancement/thickening. This could be seen in the settin g of a mild meningitis. Recommend follow-up lumbar puncture for further evaluation 3. This report was communicated to the referring physician on January 21, 2024 at 7:14 PM. ACT 112: Negative or not required by law. Electronically signed by: Rosalio Pop M.D. 01/21/2024 7:15 PM
[2024-01-21] MEDS ORDERED: CIPROFLOXACIN HCL 0.3% OP SOLN 2.5 ML BTL OP SCH (21:00)
[2024-01-21] MEDS: NAPHAZOLIN/PHENIRAMIN OPH SOLN 15 ML BTL OPB SCH (21:02)
[2024-01-22 08:09] LABS: Hematocrit (blood only) 37.5 % (42.0-52.0); Hemoglobin 12.6 g/dl (14.0-18.0); Mean Corpuscular Hgb Conc 33.6 g/dL (32.0-36.0); Mean Corpuscular Volume 95.2 fL (80.0-100.0); Mean Platelet Volume 10.3 fL (9.4-12.4); Nucleated RBC # (auto) 0.18 K/uL (0.00-0.12); Platelet Count 134 K/uL (130-400); RDW Coefficient of Variation 14.6 % (11.5-14.5); RDW Standard Deviation 49.9 fL (36.4-46.3); Red Blood Count 3.94 M/uL (4.70-6.10); White Blood Count 17.55 K/ul (4.8-10.8)
[2024-01-22 08:24] LABS: BUN Creatinine Ratio 23.7 (10-20); Calcium 8.5 mg/dl (8.6-10.3); Creatinine Clr Calc Pharmacy 33.7 ml/min; Est GFR (African American) 29.9 ml/min; Est GFR (Non-African American) 25.8 ml/min; Potassium 4.3 mmol/L (3.5-5.1)
--- NOTE | 2024-01-22 09:42 | Infectious Disease Progress Nt ---
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 #Peripheral eosinophilia, resolved after steroids started 01/17 #Melanoma stage III on pembrolizumab (last received beginning of 01/02/24) #Shock, resolved #PE #Antibiotic allergy to: ciprofloxacin (unknown) Antibiotic Summary: doxycycline (01/15 present) ceftriaxone (01/10 01/15, 01/18 present) prior cefepime (01/16 01/17) acyclovir (01/17) ampicillin (01/17 01/18) pip-tazo (01/15) daptomycin (01/13 01/16) vancomycin (01/10 01/11) other notable meds dexamethasone (started 01/17) Impression: Tio Maldonado is a 78 yo M with h/o stage III melanoma on pembrolizumab (started 01/2023, cycle 9 on 01/02/24), hypertension, HLD, CKD, recently admitted for b/l LE cellulitis, fatigue, outpatient CTA prior to his last admission showed chest CTA on 01/02 which revealed 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 Readmitted on 01/10 with n/v, found to have shock requiring pressors and fevers. Initially with c/f worsening BLE cellulitis however with ongoing fevers. ID is consulted for shock and fevers of unclear etiology. He was initially admitted 01/02 01/08, at which time was dx with b/l cellulitis, afebrile with normal WBC then, and ID not involved in his care then. He was treated with ceftriaxone for 6d followed by Keflex for an additional 3d. Patient readmitted on 01/10 with N/V x 48 hours. In the ED, labs were unremarkable, CT AP negative for acute findings; showed R renal cyst. C/f recurrence of b/l LE cellulitis. He was placed on vancomycin and ceftriaxone, which was changed to daptomycin and ceftriaxone. Planned for discharge on 01/11 however became hypot ensive and TF to ICU on 01/11. Receiving levophed through port. On 01/11, WBC 6.3, Cr 1.4. UA 6-10 WBCs, UCx NGTD with <1000 colonies. Timeline - Patient with hypotension requiring pressors on 01/11 with c/f septic shock initially. Abx were broadened to vancomycin/ceftriaxone then changed to daptomycin/ceftriaxone, on which his hypotension resolved, and pressors which were weaned off fender finisher on 01/14. However, remained persistently febrile from 01/13 01/16. - T38.8 on 01/13 - Low-grade fevers on the evening of 01/14 - On the evening of 01/15, with severe encephalopathy (became tremulous/jerking, nearly non-verbal) was associated with ongoing fevers (TMax 39.9). Overnight abx were changed to pip-tazo, then to cefepime. - On 01/16 in the AM, his mental status had nearly completely resolved back to baseline; he was noted to have an erythematous rash on his face and worsening erythema of his LLE. Febrile to T38.4 in the evening. - On 01/17, afebrile throughout the day. 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 Initially mentating OK, worsened AMS throughout the day. In the afternoon, dexamethasone was started. - 01/18: Afebrile, AMS very poor (unable to respond to most questions or commands). Worsening facial rash (malar + nose distribution). Discussion The pts hypotension (resolved), fevers, facial rash, and encephalopathy (waxing/waning) are of unclear etiology. Current leading ddx is immune checkpoint inhibitor-related encephalitis and drug reaction, also consider drug- induced lupus (which could be from pembrolizumab or another drug e.g., allopurinol). Have evaluated for multiple infectious etiologies and treated with numerous empiric abx without improvement. Pt last received pembrolizumab on 01/02/24 (<2 weeks prior to admission). Immune checkpoint inhibitor adverse reactions include rash, fevers, and even meningoencephalitis. LP was obtained on 01/17 showing LP today showing tube 3: clear, colorless, no xanthochromia, 44 WBCs (100% monos), 11 RBCs, glu 63, prot 66.2. Thus far negative CSF PCR panel including negative Crypto, Listeria, HSV/VZV. Other studies pending. While there is some pleocytosis suggesting inflammation/meningitis, a mononuclear predominance would not be expected for most bacterial or viral meningitis (may see in Listeria, but PCR panel negative). A mononuclear pleocytosis can be seen with pembrolizumab/checkpoint inhibitor meningoencephalitis (https://www.ncbi.nlm.nih.gov/pmc/articles/CQH7077 809). Overall, his waxing and waning clinical picture is not suggestive of bacterial meningitis. Note that pts facial rash in the malar + nose distribution. Also considered possibility of drug fever and drug-induced lupus (note eosinophilia 10-12% with AEC up to 570 prior to starting steroids) which can be attributed to both pembrolizumab and/or allopurinol. Would discuss possibility of drug-induced lupus with rheumatology (and dermatology, if available). Considered other infectious ddx. Pt with BLE erythema which can be from cellulitis/erysipelas vs. drug reaction. However, at his previous admission he already received a full course of abx treatment, and he continued to have waxing and waning erythema of his BLE while inpatient (even while on broad abx including daptomycin + ceftriaxone). 01/12 BCx (though obtained after abx) are NGTD. Previously complaining of aches and pains throughout (including R hip pain, L shoulder pain) though these have resolved. Has bilateral knee and bila teral shoulder replacements; would continue to monitor these sites. UA with modest pyuria though UCx NG (<1k colonies) thus not suggestive of UTI. CT A/P with contrast did not show ascending urinary tract abnormalities. Also considered possibility of tickborne disease [place] 01/14 Lyme screen positive, however IgG and IgM confirmation both neg, inconsistent with Lyme disease. Initial LFTs only with mildly elevated AST of 44 and normal ALT, alk phos, and tbili. [place] screen neg. Babesia/Anaplasma smear neg, Babesia PCR negative, Anaplasma and Ehrlichia PCR negative. Pending Rickettsial panel. 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 Have changed cefepime back to ceftriaxone on 01/18 (given negative BCx and CSF testing so far; also so that cefepime neurotoxicity is not contributing to encephalopathy). Pt has now been afebrile since 01/16 PM. Did have leukocytosis on 01/21, but likely related to steroids. Low likelihood of bacterial meningitis with monocytic pleocytosis in CSF, meningitis PCR panel negative, CSF culture negative. Therefore, discontinuing ceftriaxone Recommendations: - Discontinued ceftriaxone given low concern for bacterial meningitis. - Discontinued doxycycline given low concern for tickborne infection. Anaplasma and Ehrlichia PCR, Lyme testing negative thus far. - Has completed a course of antibiotics for possible LE cellulitis as well. - Defer steroids to oncology - F/u CSF VDRL, Lyme PCR - F/u rickettsial panel Discussed with Dr. Hogan. Will continue to follow Admission and Anticipated Discharge Date Admission Date: January 11, 2024 Subjective This patient recommendation is based on a telemedicine consult request which was completed asynchronously through chart review and information provided by the primary physician. The patient was not seen or examined today. The evaluation is consultative in nature and all patient care and treatment decisions can either be accepted or rejected by the patient's primary hospital-based treating physician using their own independent medical judgment for their patient. Time Spent Reviewing Chart: 31+ minutes Anaplasma and Ehrlichia PCR negative CSF culture finalized as negative CSF CrAg, WNV Ab, EBV PCR neg Afebrile (last fever 01/16 PM) WBC 17.55 (up from 6.77 on 01/18) On dexamethasone starting 01/17 MRI brain last night with no acute infarct or intracranial hemorrhage, questionable mild pachymeningeal enhancement/thickening, could be seen in setting of mild meningitis Review of System Pt was not seen Physical Exam Physical Exam: Pt was not seen Results & Data Vital Signs (Past 12 Hours) Vital Signs Temp Pulse Pulse Resp BP BP Pulse Ox 01/22/24 08:06 01/22/24 07:32 36.6 C 88 20 166/89 H 95 01/22/24 02:35 36.4 C L 81 19 174/95 H 93 01/22/24 00:00 71 01/21/24 23:00 36.5 C 83 19 145/86 H 91 O2 Del Method O2 Flow Rate 01/22/24 08:06 Nasal Cannula 2 01/22/24 07:32 Nasal Cannula 3.0 01/22/24 02:35 Room Air 01/22/24 00:00 01/21/24 23:00 Room Air Laboratory Results Short CBC 01/22/24 Range/Units 07:17 WBC 17.55 H (4.8-10.8) K/ul Hgb 12.6 L (14.0-18.0) g/dl Hct 37.5 L (42.0-52.0) % Plt Count 134 (130-400) K/uL BMP 01/22/24 07:17 Sodium 138 Potassium 4.3 Chloride 107 Carbon Dioxide 23 BUN 55 H Creatinine 2.32 H Glucose 139 H Calcium 8.5 L Diagnostic Findings Brain MRI 01/21/24 21:00 Brain MRI WITH AND WITHOUT CONTRAST HISTORY: Altered mental status. eval for encephalitis TECHNIQUE: Multiplanar multisequence MRI of the brain was performed both before and after the intravenous administration of contrast. COMPARISON STUDY: Brain MRI 01/16/2024. Head CT 01/19/2024. FINDINGS: No areas of restricted diffusion to suggest acute infarction. The midline structures are intact. Postoperative changes again noted within the sphenoid sinuses/posterior nasopharynx. No fluid levels within the paranasal sinuses. Trace bilateral mastoid effusions are noted. Prior bilateral lens replacement. Otherwise, the orbits are unremarkable. The major vascular flow- voids at the skull base are maintained. The ventricles and sulci demonstrate mild age-related involutional changes. Mild periventricular white matter T2 hype rintensity favors a rash ischemic change. This is similar to the prior study. No extra-axial fluid collections. Postcontrast sequences show no areas of abnormal enhancement within the brain parenchyma. However, there is questionable pachymeningeal enhancement/thickening most pronounced on the right best seen on coronal image 15. IMPRESSION: 1. No acute infarct or intracranial hemorrhage. 2. There is questionable mild pachymeningeal enhancement/thickening. This could be seen in the setting of a mild meningitis. Recommend follow-up lumbar puncture for further evaluation 3. This report was communicated to the referring physician on January 21, 2024 at 7:14 PM. Micro Data: 01/17 LP tube 3: clear, colorless, no xanthochromia, 44 WBCs (100% monos), 11 RBCs, glu 63, prot 66.2 Bact Cx: NG; stain: moderate WBCs, no organisms Fungal Cx: NGTD AFB Cx: PEND, smear neg Meningitis PCR panel: neg, including negative: Crypto, CMV, Enterovirus, HSV-1/2, VZV, Listeria, Neisseria meningitis, Strep pneumo VDRL: PEND Lyme Ab: PEND Lyme PCR: PEND Crypto Ag (separate): neg WNV: neg EBV PCR: neg cytology: many small round benign lymphocytes. Blasts, jeff-arachnoid cells and malignant cells not seen. 01/16 MRSA nares: neg 01/16 UCx: NG <1k colonies 01/15 BCx x1: NG 01/15 T. pallidum Ab: neg 01/15 Rickettsial panel: PEND 01/15 Anaplasma/Babesia smear: neg 01/15 Anaplasma DNA: neg 01/15 Babesia DNA: neg 01/15 Ehrlichia DNA: neg 01/15 mono screen: neg 01/14 UCx: NG <1k colonies 01/14 BCx x1: NG 01/14 Strep pneumo UrAg: neg 01/14 Lyme screen positive; IgG and IgM confirmation: neg 01/14 RVP: neg 01/12 BCx x1: NG 01/11 MRSA nares: neg 01/11 UCX: NG <1k colonies Antibiotic Summary: doxycycline (01/15 present) ceftriaxone (01/10 01/15, 01/18 present) prior cefepime (01/16 01/17) acyclovir (01/17) ampicillin (01/17 01/18) pip-tazo (01/15) daptomycin (01/13 01/16) vancomycin (01/10 01/11) other notable meds dexamethasone (started 01/17) Medications Administered Current Inpatient Medications Acetaminophen (Acetaminophen 325 Mg Tab) 650 mg PO Q4H PRN PRN Reason: pain/fever Stop: 02/10/24 14:46 Last Admin: 01/18/24 13:15 Dose: 650 mg Dextrose (Dextrose 50% 50 Ml Syringe) 25 - 50 ml IV UD PRN; Protocol PRN Reason: Hypoglycemia Protocol Stop: 02/17/24 17:35 Diclofenac Sodium (Diclofenac Sod 1% Gel 100 Gm Tube) 4 gm EXT BID PRN; Protocol PRN Reason: Pain Stop: 02/14/24 09:44 Last Admin: 01/20/24 15:59 Dose: 4 gm Doxycycline Hyclate (Doxycycline Hyclate 100 Mg Cap) 100 mg PO BID [facility] Stop: 01/30/24 09:29 Last Admin: 01/20/24 09:18 Dose: Not Given Enoxaparin Sodium (Enoxaparin 150 Mg/Ml Syr) 135 mg SQ Q12 [facility] Stop: 02/10/24 20:59 Last Admin: 01/17/24 08:05 Dose: 135 mg Glucagon (Glucagon For Inj 1 Mg Vial) 1 mg SQ UD PRN; Protocol PRN Reason: Hypoglycemia Protocol Stop: 02/17/24 17:35 Glucose (Glucose 40% Gel 15 Gm Tube) 15 - 30 gm PO UD PRN; Protocol PRN Reason: Hypoglycemia Protocol Stop: 02/17/24 17:35 Glucose (Glucose 10 Tab/Tube) 4 - 8 tab PO UD PRN; Protocol PRN Reason: Hypoglycemia Treatment Stop: 02/17/24 17:35 Lisinopril/HCTZ (Lisinopril/Hctz 10/12.5mg Tab) 1 tab PO QAM [facility] Stop: 02/11/24 08:59 Last Admin: 01/18/24 09:23 Dose: 1 tab Heparin Sodium (Porcine) (Heparin 100 Unit/Ml 5ml Flush) 5 ml FLUSH PRN PRN PRN Reason: Flush Stop: 02/14/24 03:30 Last Admin: 01/16/24 05:30 Dose: 5 ml Ceftriaxone Sodium (Rocephin) 2,000 mg in 50 mls @ 100 mls/hr IV Q24H [facility] Stop: 01/29/24 09:59 Last Admin: 01/22/24 08:57 Dose: 100 mls/hr Thiamine HCl 200 mg/ Sodium (Chloride) 52 mls @ 210 mls/hr IV QAM [facility] Stop: 02/19/24 08:59 Last Admin: 01/22/24 09:01 Dose: 210 mls/hr Famotidine (Pepcid 20mg Iv Push) 20 mg in 5 mls @ 2.5 mls/min IV Q12 [facility] Stop: 02/19/24 11:14 Last Admin: 01/21/24 21:00 Dose: 2.5 mls/min Acetaminophen (Ofirmev) 1,000 mg in 100 mls @ 400 mls/hr IV Q8H PRN; Protocol PRN Reason: PAIN OR FEVER Stop: 01/23/24 11:14 Last Infusion: 01/21/24 04:48 Dose: Infused Dexamethasone 10 mg/ Syringe 2.5 mls @ 1 mls/min IV BID [facility] Stop: 02/20/24 20:59 Last Admin: 01/21/24 21:01 Dose: 1 mls/min Insulin Aspart (Insulin Aspart Per Unit Charge) 0 units SC ACHS [facility] Stop: 02/17/24 20:59 Last Admin: 01/22/24 08:48 Dose: 2 units Ketoconazole (Ketoconazole 2% Cr 15 Gm Tube) 1 appln EXT DAILY [facility] Stop: 01/26/24 15:14 Last Admin: 01/22/24 08:51 Dose: 1 appln Melatonin (Melatonin 3 Mg Tab) 3 mg PO HS PRN PRN Reason: Sleep Stop: 02/19/24 23:56 Last Admin: 01/21/24 00:37 Dose: 3 mg Metoprolol Tartrate (Metoprolol Tartrate 1 Mg/Ml Vial) 5 mg IV Q4 PRN PRN Reason: sbp > 185, dbp >95, HR >120 Stop: 02/16/24 07:46 Miscellaneous (Carbohydrates For Hypoglycemia ) 15 - 30 gm PO UD PRN PRN Reason: Hypoglycemia Protocol Stop: 02/17/24 17:35 Naphazoline HCl/Pheniramine Maleate (Naphazolin/Pheniramin Oph Soln 15 Ml Btl) 2 drops OPB BID [facility] Stop: 02/20/24 20:59 Last Admin: 01/22/24 08:52 Dose: 2 drops Ondansetron HCl (Ondansetron Inj 2 Mg/Ml 2 Ml Vial) 4 mg IV Q6H PRN PRN Reason: Nausea Stop: 02/10/24 14:46 Last Admin: 01/17/24 09:17 Dose: 4 mg Pantoprazole Sodium (Pantoprazole 40 Mg Tab) 40 mg PO BID [facility] Stop: 02/17/24 20:59 Last Admin: 01/20/24 09:18 Dose: Not Given Polyethylene Glycol (Polyethylene (Miralax) 17 Gm Pack) 17 gm PO DAILY [facility] Stop: 02/15/24 08:59 Last Admin: 01/20/24 09:18 Dose: Not Given Potassium Citrate (Potassium Citrate 10 Meq Tab) 10 meq PO BID [facility] Stop: 02/10/24 20:59 Last Admin: 01/20/24 09:18 Dose: Not Given Pravastatin Sodium (Pravastatin Sod 20 Mg Tab) 20 mg PO HS [facility] Stop: 02/10/24 20:59 Last Admin: 01/17/24 21:21 Dose: 20 mg Pregabalin (Pregabalin 150 Mg Cap) 150 mg PO BID [facility] Stop: 02/14/24 10:59 Last Admin: 01/20/24 09:18 Dose: Not Given
[2024-01-22] MEDS: SODIUM CHLORIDE 0.9% 1,000 ML IV SCH (14:34)
--- NOTE | 2024-01-22 16:22 | Hematology/Oncology Prog Note ---
Date of Service January 22, 2024 Assessment & Plan (1) Altered mental status: Plan Lack of significant response to steroids not typical for Immunotherapy induced autoimmune encephalitis, therefore suspicion for this remains low. . Would however continue with steroids for now. Can switch from dexamethasone to Prednisone 60mg po daily or methylprednisolone 60mg IV daily. Admission and Anticipated Discharge Date Admission Date: January 11, 2024 Subjective No significant improvement in mental status despite high dose steroids x 4 days. Brain MRI on 01/21/24 showed questionable mild pachymeningeal enhancement/thickening-this could be seen in the setting of a mild meningitis. Results & Data Vital Signs (Past 12 Hours) Vital Signs Temp Pulse Pulse Resp BP Pulse Ox O2 Del Method 01/22/24 14:21 36.5 C 79 18 170/83 H 93 Room Air 01/22/24 11:37 36.6 C 76 18 135/84 93 Room Air 01/22/24 08:06 Nasal Cannula 01/22/24 08:00 94 H 01/22/24 07:32 36.6 C 88 20 166/89 H 95 Nasal Cannula O2 Flow Rate 01/22/24 14:21 01/22/24 11:37 01/22/24 08:06 2 01/22/24 08:00 01/22/24 07:32 3.0
--- NOTE | 2024-01-22 18:29 | Nephrology Progress Note ---
Date of Service January 22, 2024 Assessment & Plan (1) Acute kidney injury superimposed on CKD: Plan: CKD IIIa CKD (baseline creatinine ~1.3 mg/dL) attributed to ATN. Recent ELISABETH attributed to hemodynamic/septic ATN. Creatinine had improved to ~1.7 mg/dL but slightly elevated today. This appears to be associated with poor PO intake related to encephalopathy. Volume status appears acceptable. No fluid retention or edema. No symptoms or urinary retention. Remains non-oliguric. Electrolytes are normal. BP acceptable. 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 IVF are being infused. PO intake improving. Document strict I/O's. Repeat metabolic profile tomorrow AM. Medications are appropriate for kidney function. Continue to hold KIERAN + diuretics. (2) Bilateral cellulitis of lower leg: Plan: Completed antibiotic therapy. ID consultation reviewed. (3) Altered mental status: Plan: Improving. Remains on Decadron with oversight per oncology. Admission and Anticipated Discharge Date Admission Date: January 11, 2024 Subjective No acute events overnight. I was contacted by Dr. Hogan this AM due to elevated serum creatinine. Delirium - waxing/waning - mental status persists but improving. Tio was seen and evaluated this evening with his son present. His son reports significant improvement in encephalopathy. No fevers or chills. BP has been acceptable, elevated this evening. IVF infusing. PO intake decreased. Non-oliguric. Tio denies LUTS. Review of Systems Review of Systems: All systems reviewed & are unremarkable except as noted in HPI & below Physical Exam Constitutional: well developed; no acute distress Eyes: + anicteric sclerae; no corneal abnormal ity ENMT: Mouth: no oral mucosal abnormality and oral mucous membranes not dry Neck: normal visual inspection and trachea midline Respiratory: normal respiratory effort Auscultation: lungs clear to auscultation bilaterally Cardiovascular: Rate/Rhythm: regular rate Heart Sounds: normal S1 and chris l S2 Extremities: no edema Musculoskeletal: Extremities: no cyanosis and no clubbing Skin: normal turgor; no lesions Neurologic: awake Motor/Sensory: no tremor and no asterixis Psychiatric: Orientation: + not oriented x 3 Results & Data Vital Signs (Past 12 Hours) Vital Signs Temp Pulse Pulse Resp BP Pulse Ox O2 Del Method 01/22/24 16:00 78 01/22/24 14:21 36.5 C 79 18 170/83 H 93 Room Air 01/22/24 11:37 36.6 C 76 18 135/84 93 Room Air 01/22/24 08:06 Nasal Cannula 01/22/24 08:00 94 H 01/22/24 07:32 36.6 C 88 20 166/89 H 95 Nasal Cannula O2 Flow Rate 01/22/24 16:00 01/22/24 14:21 01/22/24 11:37 01/22/24 08:06 2 01/22/24 08:00 01/22/24 07:32 3.0 Laboratory Results Laboratory Results - last 24 hr 01/21/24 01/22/24 01/22/24 20:37 03:10 07:17 WBC 17.55 H RBC 3.94 L Hgb 12.6 L Hct 37.5 L MCV 95.2 MCH 32.0 MCHC 33.6 RDW Std Deviation 49.9 H RDW Coeff of Lisbeth 14.6 H Plt Count 134 MPV 10.3 Absolute Nucleated RBC 0.18 H Nucleated RBC % (auto) 1.0 Sodium 138 Potassium 4.3 Chloride 107 Carbon Dioxide 23 Anion Gap 8 BUN 55 H Creatinine 2.32 H Est Cr Clr Drug Dosing 33.7 Est GFR ( Amer) 29.9 Est GFR (Non-Af Amer) 25.8 BUN/Creatinine Ratio 23.7 H Glucose 139 H POC Glucose 164 H 149 H Calcium 8.5 L 01/22/24 01/22/24 01/22/24 07:32 11:40 16:21 WBC RBC Hgb Hct MCV MCH MCHC RDW Std Deviation RDW Coeff of Lisbeth Plt Count MPV Absolute Nucleated RBC Nucleated RBC % (auto) Sodium Potassium Chloride Carbon Dioxide Anion Gap BUN Creatinine Est Cr Clr Drug Dosing Est GFR ( Amer) Est GFR (Non-Af Amer) BUN/Creatinine Ratio Glucose POC Glucose 145 H 141 H 139 H Calcium PG Care Time/CCT Total # of Minutes Spent Total Time Spent with Patient: Total time spent is greater than 50% in coordination of care (as documented) at patient's floor/unit and/or counseling patient: Coding Level of Care Code 25123 SUB INP/OBS CARE 3/50MIN Diagnoses Acute kidney injury superimposed on CKD N17.9; N18.9 Bilateral cellulitis of lower leg L03.116; L03.115 Altered mental status R41.82
--- NOTE | 2024-01-22 22:31 | Hospitalist Progress Note ---
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 LE cellulitis. (2) ELISABETH (acute kidney injury): Plan: Status post acute kidney injury now resolved . With a history of CKD stage III. Creatinine normalized (3) Bilateral cellulitis of lower leg: Plan: Hypomagnesemia. Replaced 01/16 History of pulmonary embolism. With failed Coumadin therapy. Pts PE seems to have been pre 2020 from our records, then a possible new small segmental occlusion seen on 01/02 holding lovenox until 24 hours after LP, ,will restart in am 01/19 if some improvement Hypertension. now hypotensive holding losartan/HCTZ, additional fluid bolus 0 01/17 and additional midodrine History of malignant melanoma. previously on pembrolizumab monthly . Is following with oncology appreciate inpatient consult encouraged to use dexamethasone. Morbid obesity. High clinical suspicion of obstructive sleep apnea with recommendation with short-term outpatient follow-up with primary care to arrange formal sleep study. If positive then remains untreated this will contribute to ongoing acute decompensation of right-sided heart failure, etc. Admission and Anticipated Discharge Date Admission Date: January 11, 2024 Subjective Patient appears confused today. He thinks he is in a store. He is unable to provide much history. Review of Systems Review of Systems: All systems reviewed & are unremarkable except as noted in HPI & below Physical Exam Physical Exam: NAD, legs look improved, No erythema noted. cardiac is regular lungs diminished abdomen is soft mildly tender Patient confused Results & Data Results & Data Vital Signs (Past 12 Hours) Vital Signs Temp Pulse Pulse Resp BP Pulse Ox O2 Del Method 01/22/24 20:13 36.9 C 90 18 150/92 H 93 Room Air 01/22/24 16:00 78 01/22/24 14:21 36.5 C 79 18 170/83 H 93 Room Air 01/22/24 11:37 36.6 C 76 18 135/84 93 Room Air PG Care Time/CCT Total # of Minutes Spent Total Time Spent with Patient: Total time spent is greater than 50% in coordination of care (as documented) at patient's floor/unit and/or counseling patient: Coding Level of Care Code 42888 SUB INP/OBS CARE 3/50MIN Diagnoses Severe sepsis A41.9; R65.20 ELISABETH (acute kidney injury) N17.9 Bilateral cellulitis of lower leg L03.116; L03.115 Time Spent (min) 50
[2024-01-23] MEDS: SODIUM CHLORIDE 0.9% 500 ML IV ONE (05:48)
[2024-01-23] MEDS: METOPROLOL TARTRATE 1 MG/ML VIAL IV STA (05:48)
--- NOTE | 2024-01-23 05:51 | Communication Note ---
Date of Service: January 23, 2024 Nahomi seymour called overhead. Resident and attending to bedside. Patient with shortness of breath, diaphoresis, and generally feeling unwell. Found to be in a fib with RVR in the 140s. Started 500 mL bolus NSS and Lopressor 5 mg IV x1 with improvement in rate to the 100s-110s. CBC, CMP, HSTrop, Mg, coag panel ordered. Goal K > 4, Mg > 2. XR and exam with signs of fluid overload. Stopped fluid bolus to avoid further overload. This would likely be new onset a fib. Patient seems to have been in a fib during this hospitalization but it has not been captured by EKG. Patient was downgraded from the PCU earlier this shift to help free up PCU beds. Re-escalated care to PCU/tele after code lion. XR with signs of fluid overload. Stopped fluid bolus to avoid further overload. ECHO was done during this admission with preserved EF. Cardiology consult placed. Last dose of Lovenox 01/16. It was held for LP, ordered to restart yesterday but no additional doses were given. Per review of H&P patient with prior PE and failed warfarin therapy. Is on therapeutic Lovenox Q12 on an outpatient basis. Resident Activity Tracking Resident Involvement: Resident Care Provided Care Provided: Adult Hospital Medicine
[2024-01-23] MEDS: METOPROLOL TARTRATE 1 MG/ML VIAL IV ONE (05:59)
[2024-01-23 06:11] LABS: Albumin Level 3.6 gm/dl (3.4-5.0); BUN Creatinine Ratio 29.4 (10-20); Bilirubin Direct 0.3 mg/dl (0-0.2); Calcium 8.5 mg/dl (8.6-10.3); Creatinine Clr Calc Pharmacy 38.6 ml/min; Est GFR (African American) 35.5 ml/min; Est GFR (Non-African American) 30.6 ml/min; Potassium 3.9 mmol/L (3.5-5.1); Total Protein 6.7 gm/dl (6.0-8.3)
[2024-01-23 06:33] LABS: INR 1.1 (0.9-1.1); Partial Thromboplastin Ratio 0.9; Partial Thromboplastin Time 23 Seconds (21-31); Prothrombin Time 11.5 Seconds (9.0-12.0)
[2024-01-23 06:52] LABS: Hematocrit (blood only) 42.3 % (42.0-52.0); Hemoglobin 13.9 g/dl (14.0-18.0); Mean Corpuscular Hemoglobin 32.1 pg (25.0-34.0); Mean Corpuscular Hgb Conc 32.9 g/dL (32.0-36.0); Mean Corpuscular Volume 97.7 fL (80.0-100.0); Mean Platelet Volume 10.4 fL (9.4-12.4); Nucleated RBC # (auto) 1.25 K/uL (0.00-0.12); Nucleated RBC % (auto) 3.9 %; Platelet Count 216 K/uL (130-400); RDW Coefficient of Variation 15.9 % (11.5-14.5); Red Blood Count 4.33 M/uL (4.70-6.10)
--- NOTE | 2024-01-23 08:02 | XRay Report ---
SINGLE VIEW CHEST CLINICAL HISTORY: Dyspnea FINDINGS: 2 AP, portable, upright chest radiographs are compared to study dated 01/16/2024 and correla roro with chest CT dated 01/03/2024. A right internal jugular central venous infusion port is unchanged in position. The heart is enlarged. There is pulmonary vascular congestion. Chronic interstitial thi ckening is similar to previous. There is bibasilar scarring/atelectasis. No airspace consolidation or large pleural effusion is identified. A nodular opacity projecting the right mid lung corresponds to a pleural-based lesion when correlated with the prior CT scan. No pneumothorax is seen. The skeletal structures are osteopenic. The bony thorax is grossly intact. Bilateral shoulder arthroplasties are in place. IMPRESSION: 1. Cardiomegaly with pulmonary vascular congestion. 2. No airspace consolidation or large pleural effusion is identified. 3. A nodular opacity projecting the right mid lung corresponds to a pleural-based lesion when correla roro with the recent chest CT ACT 112: Negative or not required by law. Electronically signed by: Urbano France M.D. 01/23/2024 8:01 AM
[2024-01-23 08:36] LABS: C Reactive Protein 1.41 mg/dl (0-0.5)
--- NOTE | 2024-01-23 08:43 | Electrocardiogram Report ---
Test Reason : Blood Pressure : */* mmHG Vent. Rate : 145 BPM Atrial Rate : 150 BPM P-R Int : * ms QRS Dur : 88 ms QT Int : 304 ms P-R-T Axes : * -9 46 degrees QTcB Int : 472 ms Poor data quality, interpretation may be adversely affected Probable Atrial flutter Low voltage QRS Nonspecific ST and T wave abnormality Abnormal ECG When compared with ECG of 17-Jan-2024 07:34, Atrial flutter has replaced Sinus rhythm HR has increased by [address] and T wave abnormality now present Confirmed by José Luis Jackson ([id number]) on 01/23/2024 8:43:15 AM Referred By: Stef Encarnacion Confirmed By: José Luis Jackson
--- NOTE | 2024-01-23 08:47 | Electrocardiogram Report ---
Test Reason : Blood Pressure : */* mmHG Vent. Rate : 75 BPM Atrial Rate : 75 BPM P-R Int : 180 ms QRS Dur : 90 ms QT Int : 478 ms P-R-T Axes : 27 -12 -84 degrees QTcB Int : 533 ms Normal sinus rhythm T wave abnormality, consider inferior ischemia T wave abnormality, consider anterolateral ischemia Prolonged QT Abnormal ECG When compared with ECG of 23-Jan-2024 05:34, Sinus rhythm has replaced Atrial flutter Vent. rate has decreased by 70 bpm Inverted T waves have replaced nonspecific T wave abnormality in Inferior leads T wave inversion now evident in Anterolateral leads Confirmed by José Luis Jackson ([id number]) on 01/23/2024 8:46:55 AM Referred By: Stef Encarnacion Confirmed By: José Luis Jackson
--- NOTE | 2024-01-23 09:46 | Nephrology Progress Note ---
Date of Service January 23, 2024 Assessment & Plan (1) Acute kidney injury superimposed on CKD: Plan: CKD IIIa CKD (baseline creatinine ~1.3 mg/dL) attributed to ATN. Recent ELISABETH attributed to hemodynamic/septic ATN. Creatinine had improved to ~1.7 mg/dL but slightly elevated yesterday. This appears to be associated with poor PO intake. Tio remains encephalopathic with decreased PO intake. CXR demonstrating some pulmonary congestion without significant interstitial edema. Volume status overall acceptable. See draining concentrated urine. Remains non-oliguric. Electrolytes are normal. BP acceptable. 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 Additional 250 ml bolus of Plasma-Lyte provided this AM. Document strict I/O's. Repeat metabolic profile tomorrow AM. Medications are appropriate for kidney function. Continue to hold KIERAN + diuretics. (2) Bilateral cellulitis of lower leg: Plan: Completed antibiotic therapy. (3) Altered mental status: Plan: Waxing and waning. Remains on Decadron with oversight per oncology. WBC rising. Noted hemodynamically significant atrial fibrillation overnight. Admission and Anticipated Discharge Date Admission Date: January 11, 2024 Subjective Mental status waxing and waning. Somnolent this AM. Code purple overnight for atrial fibrillation with RVR. IVF were stopped. Tio is not eating or drinking this AM. He is in sinus rhythm at a rate of ~75 bpm. EKG demonstrating prolonged QTc but no acute ST-T changes. Troponin elevated. Oxygenating well. BP acceptable. Review of Systems Review of Systems: All systems reviewed & are unremarkable except as noted in HPI & below and Unobtainable due to cognitive status (limited due to encephalopathy) Physical Exam Constitutional: well developed; no acute distress Eyes: + anicteric sclerae; no corneal abnormal ity ENMT: Mouth: + dry oral mucous membranes; no oral mucosal abnormality Neck: normal visual inspection and trachea midline Respiratory: normal respiratory effort Auscultation: lungs clear to auscultation bilaterally Cardiovascular: Rate/Rhythm: regular rate Heart Sounds: normal S1 and normal S2 Extremities: + pedal edema Musculoskeletal: Extremities: no cyanosis and no clubbing Skin: + turgor decreased; no jaundice Neurologic: + not awake Motor/Sensory: no tremor and no asterixis Results & Data Vital Signs (Past 12 Hours) Vital Signs Temp Pulse Pulse Resp BP BP BP 01/23/24 08:02 01/23/24 07:13 36.3 C L 77 19 136/84 01/23/24 06:03 36.5 C 22 01/23/24 06:03 109 H 132/54 L 01/23/24 05:48 132 H 165/92 H 01/23/24 05:43 130 H 141/103 H 01/23/24 05:39 142 H 165/109 H 01/23/24 05:35 144 H 165/118 H 01/23/24 05:33 148 H 170/106 H 01/23/24 05:29 154 H 168/137 H 01/23/24 05:13 36.4 C L 73 20 151/88 H 01/23/24 00:07 01/22/24 23:57 74 01/22/24 23:55 36.9 C 69 18 151/82 H 01/22/24 23:14 36.9 C 67 18 177/106 H 01/22/24 22:23 62 Pulse Ox O2 Del Method O2 Flow Rate 01/23/24 08:02 Room Air 01/23/24 07:13 95 Nasal Cannula 1 01/23/24 06:03 93 Nasal Cannula 01/23/24 06:03 01/23/24 05:48 01/23/24 05:43 01/23/24 05:39 96 Nasal Cannula 2 01/23/24 05:35 96 Nasal Cannula 2 01/23/24 05:33 92 Room Air 01/23/24 05:29 92 Room Air 01/23/24 05:13 95 Room Air 01/23/24 00:07 Room Air 01/22/24 23:57 01/22/24 23:55 95 Room Air 01/22/24 23:14 94 Room Air 01/22/24 22:23 Laboratory Results Laboratory Results - last 24 hr 01/19/24 01/22/24 01/22/24 08:55 11:40 16:21 WBC RBC Hgb Hct MCV MCH MCHC RDW Std Deviation RDW Coeff of Lisbeth Plt Count MPV Absolute Nucleated RBC Nucleated RBC % (auto) PT INR APTT PTT Ratio Sodium Potassium Chloride Carbon Dioxide Anion Gap BUN Creatinine Est Cr Clr Drug Dosing Est GFR ( Amer) Est GFR (Non-Af Amer) BUN/Creatinine Ratio Glucose POC Glucose 141 H 139 H Calcium Magnesium Total Bilirubin Direct Bilirubin AST ALT Alkaline Phosphatase Troponin I High Sens C-Reactive Protein Total Protein Total Protein (PEP) 5.5 L Albumin Albumin (PEP) 2.6 L Upmnv-0-Qbeejlive 0.4 H Zrnvk-5-Dptialkjy 0.7 Adky-8-Qdcwspbv 0.4 Msbl-8-Pumebgpd 0.5 Gamma Globulins 1.0 Monoclonal Peak 3 DNR Ser Monoclonl Protein DNR Ser Monoclonal Prot 2 DNR PEP Interpretation SEE NOTE Procalcitonin Free [place] LC, Quant 46.5 H Free Lambda LC, Quant 29.[address]/Lambda Ratio 1.59 01/22/24 01/23/24 01/23/24 20:22 05:35 05:39 WBC 31.70 H* D RBC 4.33 L Hgb 13.9 L Hct 42.3 MCV 97.7 MCH 32.1 MCHC 32.9 RDW Std Deviation 53.0 H RDW Coeff of Lisbeth 15.9 H Plt Count 216 D MPV 10.4 Absolute Nucleated RBC 1.25 H Nucleated RBC % (auto) 3.9 PT INR APTT PTT Ratio Sodium Potassium Chloride Carbon Dioxide Anion Gap BUN Creatinine Est Cr Clr Drug Dosing Est GFR ( Amer) Est GFR (Non-Af Amer) BUN/Creatinine Ratio Glucose POC Glucose 176 H 144 H Calcium Magnesium 2.0 Total Bilirubin Direct Bilirubin AST ALT Alkaline Phosphatase Troponin I High Sens C-Reactive Protein Total Protein Total Protein (PEP) Albumin Albumin (PEP) Cpiqo-2-Rhqehnxju Pctfe-6-Mbpwnyzyf Qhmh-7-Uxewyabq Cbaw-2-Gbcqvnmk Gamma Globulins Monoclonal Peak 3 Ser Monoclonl Protein Ser Monoclonal Prot 2 PEP Interpretation Procalcitonin Free [facility] LC, Quant Free Lambda LC, Quant Free [place]/Lambda Ratio 01/23/24 01/23/24 01/23/24 05:40 05:42 07:12 WBC RBC Hgb Hct MCV MCH MCHC RDW Std Deviation RDW Coeff of Lisbeth Plt Count MPV Absolute Nucleated RBC Nucleated RBC % (auto) PT 11.5 INR 1.1 APTT 23 PTT Ratio 0.9 Sodium 139 Potassium 3.9 Chloride 106 Carbon Dioxide 17 L Anion Gap 16 H BUN 59 H Creatinine 2.01 H D Est Cr Clr Drug Dosing 38.6 Est GFR ( Amer) 35.5 Est GFR (Non-Af Amer) 30.6 BUN/Creatinine Ratio 29.4 H Glucose 164 H POC Glucose 137 H Calcium 8.5 L Magnesium Total Bilirubin 1.0 Direct Bilirubin 0.3 H AST 79 H ALT 41 Alkaline Phosphatase 95 Troponin I High Sens 360.0 H* C-Reactive Protein Total Protein 6.7 Total Protein (PEP) Albumin 3.6 Albumin (PEP) Hrgqf-4-Usxulwlpl Isqao-6-Ufbfvjgiq Ulmf-5-Kxurjbjl Fkzg-1-Cefiqnxi Gamma Globulins Monoclonal Peak 3 Ser Monoclonl Protein Ser Monoclonal Prot 2 PEP Interpretation Procalcitonin 0.[address] [place] LC, Quant Free Lambda LC, Quant Free [place]/Lambda Ratio 01/23/24 07:18 WBC RBC Hgb Hct MCV MCH MCHC RDW Std Deviation RDW Coeff of Lisbeth Plt Count MPV Absolute Nucleated RBC Nucleated RBC % (auto) PT INR APTT PTT Ratio Sodium Potassium Chloride Carbon Dioxide Anion Gap BUN Creatinine Est Cr Clr Drug Dosing Est GFR ( Amer) Est GFR (Non-Af Amer) BUN/Creatinine Ratio Glucose POC Glucose Calcium Magnesium Total Bilirubin Direct Bilirubin AST ALT Alkaline Phosphatase Troponin I High Sens 369.0 H* C-Reactive Protein 1.41 H Total Protein Total Protein (PEP) Albumin Albumin (PEP) Ovxmy-7-Rytpukecw Elfeu-5-Zsupbuarg Jrtg-2-Dsyzikvz Kqfz-9-Cheayygu Gamma Globulins Monoclonal Peak 3 Ser Monoclonl Protein Ser Monoclonal Prot 2 PEP Interpretation Procalcitonin Free [facility] LC, Quant Free Lambda LC, Quant Free [place]/Lambda Ratio PG Care Time/CCT Total # of Minutes Spent Total Time Spent with Patient: Total time spent is greater than 50% in coordination of care (as documented) at patient's floor/unit and/or counseling patient: Coding Level of Care Code 25624 SUB INP/OBS CARE 3/50MIN Diagnoses Acute kidney injury superimposed on CKD N17.9; N18.9 Bilateral cellulitis of lower leg L03.116; L03.115 Altered mental status R41.82
[2024-01-23 09:47] LABS: Albumin 2.6 g/dL (3.8-4.8); Alpha 1 Globulin 0.4 g/dL (0.2-0.3); Alpha 2 Globulin 0.7 g/dL (0.5-0.9); Beta-1-Globulin 0.4 g/dL (0.4-0.6); Beta-2-Globulin 0.5 g/dL (0.2-0.5); Free Kappa 46.5 mg/L (3.3-19.4); Free Kappa/Lambda Ratio 1.59 (0.26-1.65); Free Lambda 29.2 mg/L (5.7-26.3); Monoclonal Protein Band 1 DNR g/dL (NONE DETECTED); Monoclonal Protein Band 2 DNR g/dL (NONE DETECTED); Monoclonal Protein Band 3 DNR g/dL (NONE DETECTED); Total Protein 5.5 g/dL (6.1-8.1)
[2024-01-23] MEDS: PLASMA-LYTE A 250 ML IV ONE (10:21)
--- NOTE | 2024-01-23 13:20 | Cardiology Consultation ---
Date of Consultation January 23, 2024 Assessment & Plan (1) Atrial fibrillation and flutter: (2) Demand ischemia: (3) Pulmonary embolism on long-term anticoagulation therapy: Plan 78-year-old man with complex medical issues experienced transient atrial flutter/fibrillation earlier today before returning to sinus rhythm after receiving IV Lopressor. Would recommend institution of routine metoprolol dosing to help prevent recurrent atrial fibrillation as well as manage rate should he have any breakthrough atrial dysrhythmias. He has not been bradycardic or hypotensive, could initiate metoprolol to tartrate 25 mg twice daily and titrate as needed. He is on long-term anticoagulation with enoxaparin due to recurrent pulmonary emboli, so the risk of thromboembolic event is low. Minor troponin elevation likely demand ischemia secondary to adrenergic stress of tachycardia and patient with some degree of renal insufficiency. He did have persistent T wave abnormalities but has no chest pain or dyspnea to suggest ongoing myocardial ischemia. If he does develop any cardiopulmonary symptoms, would obtain repeat limited echocardiogram to exclude stress-induced cardiomyopathy (which often presents with global T wave inversions). In the absence of ischemic symptoms, simply optimizing hemodynamics with the addition of beta-sandra and acute management of any hypertension would be appropriate. Will continue to follow from a cardiology standpoint. History of Present Illness Reason for Consultation: a fib Requesting Physician: Bishnu Hogan Attending Physician: Bishnu Hogan History of Present Illness 78-year-old man with complex medical history but no prior cardiac history developed transient atrial flutter then atrial fibrillation yesterday. His medical problems include malignant melanoma (on pembrolizumab), morbid obesity, acute on chronic renal insufficiency, hypertension, probable sleep apnea, and prior pulmonary embolism (failed warfarin therapy, on chronic enoxaparin). He was hospitalized for cellulitis, readmitted 48 hours after discharge on 01/11/2024 after he was unable to keep oral meds down due to nausea and vomiting. During his current hospitalization, his heart rate has generally been 70-110 bpm range, with exception of a single pulse rate of 160 bpm on 01/16/2024. Early this morning, patient noted dyspnea and diaphoresis, code purple was called, ECG showed probable atrial flutter at 145 bpm, he received IV Lopressor and rhythm changed to atrial fibrillation in the 100-110 bpm range, within half an hour he returned to sinus rhythm and remained free of further atrial dysrhythmias. Aside from feeling a bit sleep deprived, he had no somatic complaints at the time of my evaluation earlier today. Specifically, he noted no dyspnea, chest pain, subjective palpitations, or lightheadedness. Telemetry showed the transient episode of presumed atrial flutter followed by atrial fibrillation, rhythm has been sinus since approximately 5:30 AM. Allergies Allergy/AdvReac Type Severity Reaction Status Date / Time gabapentin Allergy Intermediate Rash Verified 01/11/24 14:50 tramadol Allergy Intermediate Rash and Verified 01/11/24 14:50 itchiness hydrocodone Allergy Mild itchy Verified 01/11/24 14:50 oxycodone Allergy Mild itchy Verified 01/11/24 14:50 carbamazepine Allergy Unknown Unknown Verified 01/11/24 14:50 ciprofloxacin Allergy Unknown Unknown Verified 01/11/24 14:50 Home Medications Medication Instructions Recorded Confirmed Type lisinopril 10 1 tab PO QAM #0 tabs 08/31/12 01/11/24 History mg-hydrochlorothiazide 12.5 mg tablet pravastatin 20 mg tablet 20 mg PO HS ##0 02/28/16 01/11/24 History allopurinol 100 mg tablet 100 mg PO BID 90 days #180 tabs 12/22/21 01/11/24 Rx acetaminophen 500 mg tablet 1,000 mg PO Q8 PRN Pain 10/28/22 01/11/24 History (Tylenol Extra Strength) polyethylene glycol 3350 17 17 g PO DAILY PRN Constipation 01/06/23 01/11/24 History gram/dose oral powder (Miralax) pregabalin 150 mg capsule (Lyrica) 300 mg (2 x 150 mg) PO BID #360 08/16/23 01/11/24 Rx caps fluorometholone 0.1 % eye 1 drp OPB DAILY PRN Eye 01/03/24 01/11/24 History drops,suspension Inflammation enoxaparin 120 mg/0.8 mL 120 mg (0.8 mL) subcut Q12H 30 01/04/24 01/11/24 Rx subcutaneous syringe (Lovenox) days #48 mL cephalexin 500 mg capsule 500 mg PO Q6H 3 days #12 caps 01/09/24 01/11/24 Rx furosemide 40 mg tablet (Lasix) 40 mg PO DAILY PRN Edema #30 tabs 01/09/24 01/11/24 Rx potassium citrate 10 mEq (1,080 10 meq PO BID 01/11/24 01/11/24 History mg) tablet,extended release Patient History Medical History (Updated 01/23/24 @ 13:39 by José Luis Jackson MD) COVID-19 Osteoarthritis Surgical History History of left shoulder replacement History of right shoulder replacement History of total left knee replacement (TKR) History of total right knee replacement (TKR) with revision History of colonoscopy History of inguinal hernia repair History of cancer surgery Left side of neck resection + lymph node removal History of tooth extraction History of tonsillectomy and adenoidectomy History of sinus surgery History of cystoscopy History of cataract surgery bilateral History of back surgery L4-L5 with screws Family History Family/Other Diabetes Heart disease Nephrolithiasis Other No family history of adverse response to anesthesia Social History Smoking Status: Never smoker Second Hand Exposure: No; Do You Dip or Chew Tobacco: No; Hx Alcohol Use: No Hx Substance Use: No Preferred Language: Kenyan Communication Ability: Effective Division Superintendent Required: No Beliefs That Will Affect Care: None Current Living Situation: Spouse current occupational status: retired Feels Safe at Home: Yes Seatbelt Use: always Assistive Devices: Cane, Walker and Wheelchair Physical Exam Physical Exam: Healthy white male who appears comfortable currently. Afebrile. BP normotensive. Pulse 86 bpm and regular. Respirations 19 and unlabored. Skin: no ecchymoses or generalized lesions. HEENT: unremarkable. Neck: JVP mildly elevated, no carotid bruits. Lungs: clear. Cardiac: regular rhythm, normal S1-2, no murmur. Abdomen: benign. Extremities: 1+ pretibial edema with chronic stasis changes, pulses intact. Neurologic: Digressive conversation, grossly nonfocal. Results & Data Laboratory Results WBC increased to 31.70 today (17.55 yesterday). Hemoglobin 13.9. Platelet count 216,000. Potassium 3.9, BUN 59, creatinine 2.01 (2.32 yesterday). Magnesium 2.0. AST 79, ALT 41. Troponin 360 with repeat value 369. Diagnostic Findings Initial ECG during code purple earlier this morning showed probable atrial flutter at [address] and T wave abnormalities. Compared with previous ECG, atrial flutter had replaced sinus rhythm and heart rate increased by 42 bpm, ST-T wave abnormalities were no. ECG at 8 AM showed sinus rhythm at 75 bpm with fairly global T wave inversions, heart rate had decreased by 70 bpm but T wave inversions were new. Echocardiogram from 01/12/2024 showed hyperdynamic LV with no significant valvular disease. Chest x-ray this morning showed cardiomegaly with mild pulmonary vascular congestion. PG Care Time/CCT Total # of Minutes Spent Total Time Spent with Patient: Total time spent is greater than 50% in coordination of care (as documented) at patient's floor/unit and/or counseling patient: Coding Level of Care Code 85465 IN/OBS CONSULT LVL 4,60M Diagnoses Atrial fibrillation and flutter I48.91; I48.92 Demand ischemia I24.89 Pulmonary embolism on long-term anticoagulation therapy I26.99; Z79.01
[2024-01-23 17:21] LABS: Lyme DNA PCR CSF or Synovial Not Detected (Not Detected); Lyme DNA Source CSF; VDRL Qualitative CSF Nonreactive (Nonreactive)
--- NOTE | 2024-01-23 21:55 | Hospitalist Progress Note ---
Date of Service January 23, 2024 Assessment & Plan (1) Severe sepsis: Plan: Initially concerned over hypovolemic shock, septic shock both are felt not to be the initial issue diagnosis is moreso check point inhibitor reaction/encephalitis +/- thiamine deficiency Transferred to the ICU on 01/11 downgrade 01/14 never leukocytosis , fevers stopped with steroids, starting to taper Decadron, will have Dr Johnson comment on tapering scheduling mono spot and peripheral smear negative, lyme screen + but igg and igm negative, so not consistent with lyme disease viral pcr negative , CT abd pelvis was negative except for Right renal cyst. 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 LE cellulitis. (2) ELISABETH (acute kidney injury): Plan: Status post acute kidney injury now resolved . With a history of CKD stage III. Creatinine normalized (3) Bilateral cellulitis of lower leg: Plan: Hypomagnesemia. Replaced 01/16 History of pulmonary embolism. With failed Coumadin therapy. Pts PE seems to have been pre 2020 from our records, then a possible new small segmental occlusion seen on 01/02 holding lovenox until 24 hours after LP, ,will restart in am 01/19 if some improvement Hypertension. now hypotensive holding losartan/HCTZ, additional fluid bolus 0 01/17 and additional midodrine History of malignant melanoma. previously on pembrolizumab monthly . Is following with oncology appreciate inpatient consult encouraged to use dexamethasone. Morbid obesity. High clinical suspicion of obstructive sleep apnea with recommendation with short-term outpatient follow-up with primary care to arrange formal sleep study. If positive then remains untreated this will contribute to ongoing acute decompensation of right-sided heart failure, etc. Atrial fibrillation with RVR: code purple was called earlier in the day consult cardio. Admission and Anticipated Discharge Date Admission Date: January 11, 2024 Subjective Patient remains confused, but is able to reorient himself. Review of Systems Review of Systems: All systems reviewed & are unremarkable except as noted in HPI & below Physical Exam Physical Exam: NAD, legs look improved, No erythema noted. cardiac is regular lungs diminished abdomen is soft mildly tender Patient confused Results & Data Results & Data Vital Signs (Past 12 Hours) Vital Signs Temp Pulse Pulse Resp BP BP Pulse Ox 01/23/24 19:50 37.2 C 76 18 154/83 H 94 01/23/24 15:27 37.0 C 94 H 18 135/82 93 01/23/24 14:18 74 01/23/24 14:10 96 01/23/24 11:11 36.4 C L 88 19 124/75 94 O2 Del Method O2 Flow Rate 01/23/24 19:50 Room Air 01/23/24 15:27 Room Air 01/23/24 14:18 01/23/24 14:10 0 01/23/24 11:11 Room Air PG Care Time/CCT Total # of Minutes Spent Total Time Spent with Patient: Total time spent is greater than 50% in coordination of care (as documented) at patient's floor/unit and/or counseling patient: Coding Level of Care Code 45740 SUB INP/OBS CARE 2/35MIN Diagnoses Severe sepsis A41.9; R65.20 ELISABETH (acute kidney injury) N17.9 Bilateral cellulitis of lower leg L03.116; L03.115
[2024-01-23] MEDS: METOPROLOL TARTRATE 25 MG TAB PO SCH (23:18)
--- NOTE | 2024-01-24 08:23 | Hospitalist Progress Note ---
Date of Service January 24, 2024 Assessment & Plan (1) Metabolic encephalopathy: Plan: Initially concerned over hypovolemic shock, septic shock both are felt not to be the initial issue diagnosis is moreso check point inhibitor reaction/encephalitis +/- thiamine deficiency Transferred to the ICU on 01/11 downgrade 01/14 never leukocytosis , fevers stopped with steroids, starting to taper Decadron, will have Dr Johnson comment on tapering scheduling mono spot and peripheral smear negative, lyme screen + but igg and igm negative, so not consistent with lyme disease viral pcr negative , CT abd pelvis was negative except for Right renal cyst. 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 LE cellulitis. (2) Atrial fibrillation and flutter: Plan: code purple 01/22 converted and remains in msr, with iv metoprolol cardiol recommended starting scheduled po metoprolol (3) ELISABETH (acute kidney injury): Plan: Status post acute kidney injury now resolved . With a history of CKD stage III. Creatinine normalized Plan History of pulmonary embolism. With failed Coumadin therapy. Pts PE seems to have been pre 2020 from our records, then a possible new small segmental occlusion seen on 01/02 holding lovenox until 24 hours after LP, ,will restart in am 01/19 History of malignant melanoma. previously on pembrolizumab monthly . Is following with oncology appreciate inpatient consult encouraged to use de xamethasone. Morbid obesity. High clinical suspicion of obstructive sleep apnea with recommendation with short-term outpatient follow-up with primary care to arrange formal sleep study. If positive then remains untreated this will contribute to ongoing acute decompensation of right-sided heart failure, etc. Admission and Anticipated Discharge Date Admission Date: January 11, 2024 Subjective Additional atrial fibrillation overnight patient remains in sinus rhythm. Much more awake and alert but he is confused at this time Oncology is recommended tapering doses of steroids. Transition will be made Case management looking towards placement for rehab Physical Exam Physical Exam: He is awake and alert x 2 he is confused at times. Focal he can move all extremities speaks more fluently but still some word searching issues Card exam sounds regular without murmurs lungs are clear with diminished breath sounds at the bases Abdomen is protuberant NABS soft nontender Extremities are with changes of chronic venous stasis but improved from previous Results & Data Results & Data Vital Signs (Past 12 Hours) Vital Signs Temp Pulse Pulse Resp BP Pulse Ox O2 Del Method 01/24/24 07:23 98.4 F 64 18 161/90 H 94 Room Air 01/24/24 02:29 98.2 F 80 20 160/98 H 96 Room Air 01/24/24 00:00 72 01/23/24 22:46 98.1 F 76 18 152/85 H 94 Room Air Laboratory Results Reviewed CBC reviewed chemistry PG Care Time/CCT Total # of Minutes Spent Total Time Spent with Patient: Total time spent is greater than 50% in coordination of care (as documented) at patient's floor/unit and/or counseling patient: Coding Level of Care Code 46097 SUB INP/OBS CARE 2/35MIN Diagnoses Metabolic encephalopathy G93.41 Atrial fibrillation and flutter I48.91; I48.92 ELISABETH (acute kidney injury) N17.9
[2024-01-24 09:35] LABS: Albumin Level 3.3 gm/dl (3.4-5.0); BUN Creatinine Ratio 36.3 (10-20); Creatinine Clr Calc Pharmacy 45.4 ml/min; Est GFR (African American) 43.2 ml/min; Est GFR (Non-African American) 37.3 ml/min; Phosphorus 4.4 mg/dl (2.5-4.9); Potassium 4.3 mmol/L (3.5-5.1)
--- NOTE | 2024-01-24 09:40 | Nephrology Progress Note ---
Date of Service January 24, 2024 Assessment & Plan (1) Acute kidney injury superimposed on CKD: Plan: CKD IIIa CKD (baseline creatinine ~1.3 mg/dL) attributed to ATN. Recent ELISABETH attributed to hemodynamic/septic ATN. Creatinine improved to ~1.7 mg/dL. Recent rise in creatinine was associated with poor PO intake. Volume status overall acceptable. See draining clear yellow urine. Remains non-oliguric. Electrolytes are normal. BP acceptable. There is no indication for ASSEMBLER FITTER. No additional evaluation needed at this time. Kidney function is recovering. Medications are appropriate for kidney function. Nephrology will sign-off again. Please call with questions or concerns. (2) Bilateral cellulitis of lower leg: Plan: Completed antibiotic therapy. (3) Altered mental status: Plan: Improvement noted this AM. Management per hospitalist team. Admission and Anticipated Discharge Date Admission Date: January 11, 2024 Timothy Kinsey was sitting in a bedside chair this AM. No acute events overnight. He feels well and denies any complaints. No GI symptoms. Appetite is good. Review of Systems Review of Systems: All systems reviewed & are unremarkable except as noted in HPI & below Physical Exam Constitutional: well developed; no acute distress Eyes: + anicteric sclerae; no corneal abnormal ity ENMT: Mouth: no oral mucosal abnormality and oral mucous membranes not dry Neck: normal visual inspection and trachea midline Respiratory: normal respiratory effort Auscultation: lungs clear to auscultation bilaterally Cardiovascular: Rate/Rhythm: regular rate Heart Sounds: normal S1 and normal S2 Extremities: + edema Musculoskeletal: Extremities: no cyanosis and no clubbing Skin: normal turgor; no jaundice Neurologic: awake Motor/Sensory: no tremor and no asterixis Psychiatric: Orientation: + not oriented x 3 Results & Data Vital Signs (Past 12 Hours) Vital Signs Temp Pulse Pulse Resp BP Pulse Ox O2 Del Method 01/24/24 07:23 36.9 C 64 18 161/90 H 94 Room Air 01/24/24 02:29 36.8 C 80 20 160/98 H 96 Room Air 01/24/24 00:00 72 01/23/24 22:46 36.7 C 76 18 152/85 H 94 Room Air Laboratory Results Laboratory Results - last 24 hr 01/18/24 01/19/24 01/23/24 09:13 08:55 11:11 Sodium Potassium Chloride Carbon Dioxide Anion Gap BUN Creatinine Est Cr Clr Drug Dosing Est GFR ( Amer) Est GFR (Non-Af Amer) BUN/Creatinine Ratio Glucose POC Glucose 122 H Calcium Phosphorus Total Protein (PEP) 5.5 L Albumin Albumin (PEP) 2.6 L Jkruh-8-Eekbcqcoy 0.4 H Jfuxn-8-Lwjhizsxc 0.7 Ysoe-6-Nxtqaxpn 0.4 Tict-6-Galcscka 0.5 Gamma Globulins 1.0 Monoclonal Peak 3 DNR Ser Monoclonl Protein DNR Ser Monoclonal Prot 2 DNR PEP Interpretation SEE NOTE Fld Lyme DNA (PCR) Not Detected CSF VDRL Nonreactive Free [place] LC, Quant 46.5 H Free Lambda LC, Quant 29.2 H Free [place]/Lambda Ratio 1.59 Lyme Specimen Source CSF Lyme DNA Comment see note 01/23/24 01/23/24 01/24/24 16:10 20:33 07:20 Sodium Potassium Chloride Carbon Dioxide Anion Gap BUN Creatinine Est Cr Clr Drug Dosing Est GFR ( Amer) Est GFR (Non-Af Amer) BUN/Creatinine Ratio Glucose POC Glucose 135 H 142 H 112 H Calcium Phosphorus Total Protein (PEP) Albumin Albumin (PEP) Pqbbt-4-Ayazkjuhd Nfsob-3-Yeytfbyff Tvdw-7-Jrxrbyuc Cytu-9-Mknjvbxu Gamma Globulins Monoclonal Peak 3 Ser Monoclonl Protein Ser Monoclonal Prot 2 PEP Interpretation Fld Lyme DNA (PCR) CSF VDRL Free [place]velt LC, Quant Free Lambda LC, Quant Free [place]/Lambda Ratio Lyme Specimen Source Lyme DNA Comment 01/24/24 08:56 Sodium 140 Potassium 4.3 Chloride 110 H Carbon Dioxide 22 Anion Gap 8 BUN 62 H Creatinine 1.71 H D Est Cr Clr Drug Dosing 45.4 Est GFR ( Amer) 43.2 Est GFR (Non-Af Amer) 37.3 BUN/Creatinine Ratio 36.3 H Glucose 193 H POC Glucose Calcium 8.0 L Phosphorus 4.4 Total Protein (PEP) Albumin 3.3 L Albumin (PEP) Edpfh-2-Rwhtzqvig Eljgl-5-Wohrriatv Iqsj-0-Eubdddhg Bqhb-1-Elmyqqmr Gamma Globulins Monoclonal Peak 3 Ser Monoclonl Protein Ser Monoclonal Prot 2 PEP Interpretation Fld Lyme DNA (PCR) CSF VDRL Free [place]velt LC, Quant Free Lambda LC, Quant Free [place]/Lambda Ratio Lyme Specimen Source Lyme DNA Comment PG Care Time/CCT Total # of Minutes Spent Total Time Spent with Patient: Total time spent is greater than 50% in coordination of care (as documented) at patient's floor/unit and/or counseling patient: Coding Level of Care Code 31064 SUB INP/OBS CARE 350MIN Diagnoses Acute kidney injury superimposed on CKD N17.9; N18.9 Bilateral cellulitis of lower leg L03.116; L03.115 Altered mental status R41.82
--- NOTE | 2024-01-24 10:05 | Infectious Disease Progress Nt ---
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 #BLE erythema, c/f cellulitis: treated, with improvement #Peripheral eosinophilia, resolved after steroids started 01/17 #Melanoma stage III on pembrolizumab (last received beginning of 01/02/24) #Shock, resolved #PE #Antibiotic allergy to: ciprofloxacin (unknown) Antibiotic Summary: None prior cefepime (01/16 01/17) acyclovir (01/17) ampicillin (01/17 01/18) pip-tazo (01/15) daptomycin (01/13 01/16) vancomycin (01/10 01/11) doxycycline (01/15 01/18) ceftriaxone (01/10 01/15, 01/18 01/21) other notable meds dexamethasone (started 01/17) Impression: Tio Maldonado is a 78 yo M with h/o stage III melanoma on pembrolizumab (started 01/2023, cycle 9 on 01/02/24), hypertension, HLD, CKD, recently admitted for b/l LE cellulitis, fatigue, outpatient CTA prior to his last admission showed chest CTA on 01/02 which revealed 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 Readmitted on 01/10 with n/v, found to have shock requiring pressors and fevers. Initially with c/f worsening BLE cellulitis however with ongoing fevers. ID is consulted for shock and fevers of unclear etiology. He was initially admitted 01/02 01/08, at which time was dx with b/l cellulitis, afebrile with normal WBC then, and ID not involved in his care then. He was treated with ceftriaxone for 6d followed by Keflex for an additional 3d. Patient readmitted on 01/10 with N/V x 48 hours. In the ED, labs were unremarkable, CT AP negative for acute findings; showed R renal cyst. C/f recurrence of b/l LE cellulitis. He was placed on vancomycin and ceftriaxone, which was changed to daptomycin and ceftriaxone. Planned for discharge on 01/11 however became hypotensive and TF to ICU on 01/11. Receiving levophed through port. On 01/11, WBC 6.3, Cr 1.4. UA 6-10 WBCs, UCx NGTD with <1000 colonies. Timeline - Patient with hypotension requiring pressors on 01/11 with c/f septic shock initially. Abx were broadened to vancomycin/ceftriaxone then changed to daptomycin/ceftriaxone, on which his hypotension resolved, and pressors which were weaned off preassembler printed circuit board on 01/14. However, remained persistently febrile from 01/13 01/16. - T38.8 on 01/13 - Low-grade fevers on the evening of 01/14 - On the evening of 01/15, with severe encephalopathy (became tremulous/jerking, nearly non-verbal) was associated with ongoing fevers (TMax 39.9). Overnight abx were changed to pip-tazo, then to cefepime. - On 01/16 in the AM, his mental status had nearly completely resolved back to baseline; he was noted to have an erythematous rash on his face and worsening erythema of his LLE. Febrile to T38.4 in the evening. - On 01/17, afebrile throughout the day. 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 Initially mentating OK, worsened AMS throughout the day. In the afternoon, dexamethasone was started. - 01/18: Afebrile, AMS very poor (unable to respond to most questions or commands). Worsening facial rash (malar + nose distribution). Discussion The pts hypotension (resolved), fevers, facial rash, and encephalopathy (waxing/waning) are of unclear etiology. Current leading ddx is immune checkpoint inhibitor-related encephalitis and drug reaction, also consider drug- induced lupus (which could be from pembrolizumab or another drug e.g., allopurinol). Have evaluated for multiple infectious etiologies and treated with numerous empiric abx without improvement. Pt last received pembrolizumab on 01/02/24 (<2 weeks prior to admission). Immune checkpoint inhibitor adverse reactions include rash, fevers, and even men ingoencephalitis. LP was obtained on 01/17 showing LP today showing tube 3: clear, colorless, no xanthochromia, 44 WBCs (100% monos), 11 RBCs, glu 63, prot 66.2. Thus far negative CSF PCR panel including negative Crypto, Listeria, HSV/VZV. CSF VDRL negative, and Lyme PCR negative. While there is some pleocytosis suggesting inflammation/meningitis, a mononuclear predominance would not be expected for most bacterial or viral meningitis (may see in Listeria, but PCR panel negative). A mononuclear pleocytosis can be seen with pembrolizumab/checkpoint inhibitor meningoencephalitis (https://www.ncbi. nlm.nih.gov/pmc/articles/VBU0093721). Overall, his waxing and waning clinical picture is not suggestive of bacterial meningitis. Note that pts facial rash in the malar + nose distribution. Also considered possibility of drug fever and drug-induced lupus (note eosinophilia 10-12% with AEC up to 570 prior to starting steroids) which can be attributed to both pembrolizumab and/or allopurinol. Would discuss possibility of drug-induced lupus with rheumatology (and dermatology, if available). Considered other infectious ddx. Pt with BLE erythema which can be from cellulitis/erysipelas vs. drug reaction. However, at his previous admission he already received a full course of abx treatment, and he continued to have waxing and waning erythema of his BLE while inpatient (even while on broad abx including daptomycin + ceftriaxone). 01/12 BCx (though obtained after abx) are NGTD. Previously complaining of aches and pains throughout (including R hip pain, L shoulder pain) though these have resolved. Has bilateral knee and bilateral shoulder replacements; would continue to monitor these sites. UA with modest pyuria though UCx NG (<1k colonies) thus not suggestive of UTI. CT A/P with contrast did not show ascending urinary tract abnormalities. Also considered possibility of tickborne disease [place]. 01/14 Lyme screen positive, however IgG and IgM confirmation both neg, inconsistent with Lyme disease. Initial LFTs only with mildly elevated AST of 44 and normal ALT, alk phos, and tbili. Gillespie screen neg. Babesia/Anaplasma smear neg, Babesia PCR negative, Anaplasma and Ehrlichia PCR negative. Pending Rickettsial panel. 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 Have changed cefepime b ack to ceftriaxone on 01/18 (given negative BCx and CSF testing so far; also so that cefepime neurotoxicity is not contributing to encephalopathy). Pt has now been afebrile since 814 PM. Did have leukocytosis on 01/21 and 01/22, but likely related to steroids as pt has no focal complaints. Low likelihood of bacterial meningitis with monocytic pleocytosis in CSF, meningitis PCR panel negative, CSF culture negative. Therefore, ceftriaxone discontinued on 01/21. He has completed a course of antibiotics for possible LE cellulitis. Recommendations: - Continue to monitor off antibiotics - Defer steroids to oncology - CSF VDRL and Lyme PCR returned as negative. - F/u 01/15 rickettsial panel, please re-involve ID if this becomes positive Will sign off. Please page [facility] with further questions. Admission and Anticipated Discharge Date Admission Date: January 11, 2024 Subjective This patient recommendation is based on a telemedicine consult request which was completed asynchronously through chart review and information provided by the primary physician. The patient was not seen or examined today. The evaluation is consultative in nature and all patient care and treatment decisions can either be accepted or rejected by the patient's primary hospital-based treating physician using their own independent medical judgment for their patient. Time Spent Reviewing Chart: 21 - 30 minutes Per RN note from overnight, pt alert and oriented to self and situation at that time Has remained afebrile from 01/17 onwards WBC increased to 31.7 yesterday, but pt is on steroids. Had aflutter, afib yesterday Review of System Pt was not seen Physical Exam Physical Exam: Pt was not seen Results & Data Vital Signs (Past 12 Hours) Vital Signs Temp Pulse Pulse Resp BP Pulse Ox O2 Del Method 01/24/24 07:23 36.9 C 64 18 161/90 H 94 Room Air 01/24/24 02:29 36.8 C 80 20 160/98 H 96 Room Air 01/24/24 00:00 72 01/23/24 22:46 36.7 C 76 18 152/85 H 94 Room Air Laboratory Results [facility] 01/24/24 08:56 Sodium 140 Potassium 4.3 Chloride 110 H Carbon Dioxide 22 BUN 62 H Creatinine 1.71 H D Glucose 193 H Calcium 8.0 L Liver Function 01/24/24 Range/Units 08:56 Albumin 3.3 L (3.4-5.0) gm/dl Diagnostic Findings 01/17 LP tube 3: clear, colorless, no xanthochromia, 44 WBCs (100% monos), 11 RBCs, glu 63, prot 66.2 Bact Cx: NG; stain: moderate WBCs, no organisms Fungal Cx: NGTD AFB Cx: PEND, smear neg Meningitis PCR panel: neg, including negative: Crypto, CMV, Enterovirus, HSV-1/2, VZV, Listeria, Neisseria meningitis, Strep pneumo VDRL: PEND Lyme Ab: PEND Lyme PCR: PEND Crypto Ag (separate): neg WNV: neg EBV PCR: neg cytology: many small round benign lymphocytes. Blasts, jeff-arachnoid cells and malignant cells not seen. 01/16 MRSA nares: neg 01/16 UCx: NG <1k colonies 01/15 BCx x1: NG 01/15 T. pallidum Ab: neg 01/15 Rickettsial panel: PEND 01/15 Anaplasma/Babesia smear: neg 01/15 Anaplasma DNA: neg 01/15 Babesia DNA: neg 01/15 Ehrlichia DNA: neg 01/15 mono screen: neg 01/14 UCx: NG <1k colonies 01/14 BCx x1: NG 01/14 Strep pneumo UrAg: neg 01/14 Lyme screen positive; IgG and IgM confirmation: neg 01/14 RVP: neg 01/12 BCx x1: NG 01/11 MRSA nares: neg 01/11 UCX: NG <1k colonies Medications Administered Current Inpatient Medications Acetaminophen (Acetaminophen 325 Mg Tab) 650 mg PO Q4H PRN PRN Reason: pain/fever Stop: 02/10/24 14:46 Last Admin: 01/18/24 13:15 Dose: 650 mg Dextrose (Dextrose 50% 50 Ml Syringe) 25 - 50 ml IV UD PRN; Protocol PRN Reason: Hypoglycemia Protocol Stop: 02/17/24 17:35 Diclofenac Sodium (Diclofenac Sod 1% Gel 100 Gm Tube) 4 gm EXT BID PRN; Protoco l PRN Reason: Pain Stop: 02/14/24 09:44 Last Admin: 01/20/24 15:59 Dose: 4 gm Enoxaparin Sodium (Enoxaparin 150 Mg/Ml Syr) 135 mg SQ Q12 KELSY Stop: 02/10/24 20:59 Last Admin: 01/24/24 08:39 Dose: 135 mg Glucagon (Glucagon For Inj 1 Mg Vial) 1 mg SQ UD PRN; Protocol PRN Reason: Hypoglycemia Protocol Stop: 02/17/24 17:35 Glucose (Glucose 40% Gel 15 Gm Tube) 15 - 30 gm PO UD PRN; Protocol PRN Reason: Hypoglycemia Protocol Stop: 02/17/24 17:35 Glucose (Glucose 10 Tab/Tube) 4 - 8 tab PO UD PRN; Protocol PRN Reason: Hypoglycemia Treatment Stop: 02/17/24 17:35 Lisinopril/HCTZ (Lisinopril/Hctz 10/12.5mg Tab) 1 tab PO QAM KELSY Stop: 02/11/24 08:59 Last Admin: 01/18/24 09:23 Dose: 1 tab Heparin Sodium (Porcine) (Heparin 100 Unit/Ml 5ml Flush) 5 ml FLUSH PRN PRN PRN Reason: Flush Stop: 02/14/24 03:30 Last Admin: 01/16/24 05:30 Dose: 5 ml Thiamine HCl 200 mg/ Sodium (Chloride) 52 mls @ 210 mls/hr IV QAM KELSY Stop: 02/19/24 08:59 Last Infusion: 01/24/24 09:12 Dose: Infused Famotidine (Pepcid 20mg Iv Push) 20 mg in 5 mls @ 2.5 mls/min IV Q12 KELSY Stop: 02/19/24 11:14 Last Admin: 01/24/24 08:37 Dose: 2.5 mls/min Dexamethasone 10 mg/ Syringe 2.5 mls @ 1 mls/min IV BID KELSY Stop: 02/20/24 20:59 Last Admin: 01/24/24 08:38 Dose: 1 mls/min Insulin Aspart (Insulin Aspart Per Unit Charge) 0 units SC ACHS KELSY Stop: 02/17/24 20:59 Last Admin: 01/24/24 08:35 Dose: 5 units Ketoconazole (Ketoconazole 2% Cr 15 Gm Tube) 1 appln EXT DAILY [facility] Stop: 01/26/24 15:14 Last Admin: 01/24/24 08:39 Dose: 1 appln Melatonin (Melatonin 3 Mg Tab) 3 mg PO HS PRN PRN Reason: Sleep Stop: 02/19/24 23:56 Last Admin: 01/21/24 00:37 Dose: 3 mg Metoprolol Tartrate (Metoprolol Tartrate 25 Mg Tab) 25 mg PO BID KELSY Stop: 02/22/24 21:59 Last Admin: 01/24/24 08:40 Dose: 25 mg Miscellaneous (Carbohydrates For Hypoglycemia ) 15 - 30 gm PO UD PRN PRN Reason: Hypoglycemia Protocol Stop: 02/17/24 17:35 Naphazoline HCl/Pheniramine Maleate (Naphazolin/Pheniramin Oph Soln 15 Ml Btl) 2 drops OPB BID KELSY Stop: 02/20/24 20:59 Last Admin: 01/24/24 08:39 Dose: 2 drops Ondansetron HCl (Ondansetron Inj 2 Mg/Ml 2 Ml Vial) 4 mg IV Q6H PRN PRN Reason: Nausea Stop: 02/10/24 14:46 Last Admin: 01/17/24 09:17 Dose: 4 mg Pantoprazole Sodium (Pantoprazole 40 Mg Tab) 40 mg PO BID KELSY Stop: 02/17/24 20:59 Last Admin: 01/20/24 09:18 Dose: Not Given Polyethylene Glycol (Polyethylene (Miralax) 17 Gm Pack) 17 gm PO DAILY KELSY Stop: 02/15/24 08:59 Last Admin: 01/20/24 09:18 Dose: Not Given Potassium Citrate (Potassium Citrate 10 Meq Tab) 10 meq PO BID KELSY Stop: 02/10/24 20:59 Last Admin: 01/20/24 09:18 Dose: Not Given Pravastatin Sodium (Pravastatin Sod 20 Mg Tab) 20 mg PO HS KELSY Stop: 02/10/24 20:59 Last Admin: 01/17/24 21:21 Dose: 20 mg Pregabalin (Pregabalin 150 Mg Cap) 150 mg PO BID KELSY Stop: 02/14/24 10:59 Last Admin: 01/20/24 09:18 Dose: Not Given
--- NOTE | 2024-01-24 11:43 | Cardiology Progress Note ---
Date of Service January 24, 2024 Assessment & Plan (1) Atrial fibrillation and flutter: (2) Demand ischemia: (3) Pulmonary embolism on long-term anticoagulation therapy: Plan Doing well from a cardiac standpoint, no symptoms and no recurrence of atrial fibrillation. Continue metoprolol tartrate 25 mg twice daily, would change to metoprolol succinate 50 mg daily upon discharge. Continue long-term anticoagulation with enoxaparin. No evidence of ongoing myocardial ischemia, minor troponin elevation thought secondary to demand ischemia. Will sign off, please contact if any change in his cardiac status. Admission and Anticipated Discharge Date Admission Date: January 11, 2024 Subjective Uneventful night. No current complaints. Denies chest pain, dyspnea, or palpitations. Telemetry showed sinus rhythm at 60 to 70 bpm, sporadic PACs but no recurrent atrial fibrillation. Physical Exam Physical Exam: No distress, watching TV. BP 144/74 mmHg. Pulse 60 bpm and regular. Respirations 19 and unlabored. Skin: no ecchymoses or generalized lesions. HEENT: unremarkable. Neck: JVP mildly elevated, no carotid bruits. Lungs: clear. Cardiac: regular rhythm, normal S1-2, no murmur. Abdomen: benign. Extremities: 1+ pretibial edema with chronic stasis changes, pulses intact. Neurologic: More taciturn today but answers simple questions appropriately, grossly nonfocal. Results & Data Vital Signs (Past 12 Hours) Vital Signs Temp Pulse Pulse Resp BP Pulse Ox O2 Del Method 01/24/24 11:11 97.7 F 61 19 144/74 H 93 Room Air 01/24/24 07:23 98.4 F 64 18 161/90 H 94 Room Air 01/24/24 02:29 98.2 F 80 20 160/98 H 96 Room Air 01/24/24 00:00 72 Laboratory Results Normal electrolytes, BUN 62, creatinine 1.71. PG Care Time/CCT Total # of Minutes Spent Total Time Spent with Patient: Total time spent is greater than 50% in coordination of care (as documented) at patient's floor/unit and/or counseling patient: Coding Level of Care Code 40751 SUB INP/OBS CARE 2/35MIN Diagnoses Atrial fibrillation and flutter I48.91; I48.92 Demand ischemia I24.89 Pulmonary embolism on long-term anticoagulation therapy I26.99; Z79.01
--- NOTE | 2024-01-25 06:41 | Hematology/Oncology Prog Note ---
Date of Service January 25, 2024 Assessment & Plan (1) Metabolic encephalopathy: Plan Recommend decreasing dose of prednisone to 50 mg daily and continue with taper by decreasing by 10 mg every 5 days. Will schedule for outpatient follow-up in the next 1 to 2 weeks. Admission and Anticipated Discharge Date Admission Date: January 11, 2024 Subjective Doing better clinically. Alert and oriented x 3. Currently on prednisone 60 mg p.o. daily. Results & Data Vital Signs (Past 12 Hours) Vital Signs Temp Pulse Pulse Resp BP BP Pulse Ox 01/25/24 03:30 36.4 C L 61 18 156/79 H 96 01/24/24 23:18 59 L 01/24/24 22:51 36.3 C L 59 L 18 157/85 H 94 01/24/24 19:30 36.8 C 68 18 165/75 H 94 O2 Del Method 01/25/24 03:30 Room Air 01/24/24 23:18 01/24/24 22:51 Room Air 01/24/24 19:30 Room Air
[2024-01-25] MEDS: predniSONE 20 MG TAB PO SCH (08:03)
--- NOTE | 2024-01-25 12:33 | Electroencephalogram ---
EEG Procedure Note Date of Service January 25, 2024 Start / End Times Start Time: 1115 End Time: [address] 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) Home Medication List Medication Instructions Recorded Confirmed Type lisinopril 10 1 tab PO QAM #0 tabs 08/31/12 01/11/24 History mg-hydrochlorothiazide 12.5 mg tablet pravastatin 20 mg tablet 20 mg PO HS ##0 02/28/16 01/11/24 History allopurinol 100 mg tablet 100 mg PO BID 90 days #180 tabs 12/22/21 01/11/24 Rx acetaminophen 500 mg tablet 1,000 mg PO Q8 PRN Pain 10/28/22 01/11/24 History (Tylenol Extra Strength) polyethylene glycol 3350 17 17 g PO DAILY PRN Constipation 01/06/23 01/11/24 History gram/dose oral powder (Miralax) pregabalin 150 mg capsule (Lyrica) 300 mg (2 x 150 mg) PO BID #360 08/16/23 01/11/24 Rx caps fluorometholone 0.1 % eye 1 drp OPB DAILY PRN Eye 01/03/24 01/11/24 History drops,suspension Inflammation enoxaparin 120 mg/0.8 mL 120 mg (0.8 mL) subcut Q12H 30 01/04/24 01/11/24 Rx subcutaneous syringe (Lovenox) days #48 mL cephalexin 500 mg capsule 500 mg PO Q6H 3 days #12 caps 01/09/24 01/11/24 Rx furosemide 40 mg tablet (Lasix) 40 mg PO DAILY PRN Edema #30 tabs 01/09/24 01/11/24 Rx potassium citrate 10 mEq (1,080 10 meq PO BID 01/11/24 01/11/24 History mg) tablet,extended release Inpatient Medication List Acetaminophen (Acetaminophen 325 Mg Tab) 650 mg PO Q4H PRN PRN Reason: pain/fever Stop: 02/10/24 14:46 Last Admin: 01/18/24 13:15 Dose: 650 mg Documented By: Admin: 01/17/24 14:38 Dose: 650 mg Documented By: CM(2) Admin: 01/17/24 07:37 Dose: 650 mg Documented By: CM(2) Admin: 01/16/24 08:06 Dose: 650 mg Documented By: RICARDO(2) Admin: 01/14/24 19:55 Dose: 650 mg Documented By: Admin: 01/14/24 15:55 Dose: 650 mg Documented By: Admin: 01/14/24 06:13 Dose: 650 mg Documented By: Admin: 01/13/24 21:07 Dose: 650 mg Documented By: Admin: 01/13/24 07:23 Dose: 650 mg Documented By: BRADLEY Diclofenac Sodium (Diclofenac Sod 1% Gel 100 Gm Tube) 4 gm EXT BID PRN; Protocol PRN Reason: Pain Stop: 02/14/24 09:44 Last Admin: 01/20/24 15:59 Dose: 4 gm Documented By: CHOLO Enoxaparin Sodium (Enoxaparin 150 Mg/Ml Syr) 135 mg SQ Q12 KELSY Stop: 02/10/24 20:59 Last Admin: 01/25/24 08:04 Dose: 135 mg Documented By: Admin: 01/24/24 20:24 Dose: 135 mg Documented By: Admin: 01/24/24 08:39 Dose: 135 mg Documented By: Admin: 01/23/24 20:39 Dose: 135 mg Documented By: Admin: 01/23/24 10:05 Dose: 135 mg Documented By: Admin: 01/17/24 08:05 Dose: 135 mg Documented By: RICARDO(2) Admin: 01/16/24 23:30 Dose: 135 mg Documented By: Admin: 01/16/24 08:07 Dose: 135 mg Documented By: RICARDO(2) Admin: 01/15/24 21:27 Dose: 135 mg Documented By: Admin: 01/15/24 09:15 Dose: 135 mg Documented By: Admin: 01/14/24 20:14 Dose: 135 mg Documented By: Admin: 01/14/24 08:11 Dose: 135 mg Documented By: Admin: 01/13/24 21:09 Dose: 135 mg Documented By: Admin: 01/13/24 08:29 Dose: 135 mg Documented By: Admin: 01/12/24 20:35 Dose: 135 mg Documented By: Admin: 01/12/24 08:18 Dose: 135 mg Documented By: Admin: 01/11/24 21:07 Dose: 135 mg Documented By: RODRICK Lisinopril/HCTZ (Lisinopril/Hctz 10/12.5mg Tab) 1 tab PO QAM KELSY Stop: 02/11/24 08:59 Last Admin: 01/18/24 09:23 Dose: 1 tab Documented By: Admin: 01/17/24 08:04 Dose: 1 tab Documented By: RICARDO(2) Admin: 01/16/24 08:08 Dose: 1 tab Documented By: RICARDO(2) Admin: 01/13/24 08:29 Dose: 1 tab Documented By: Admin: 01/12/24 08:19 Dose: 1 tab Documented By: PURVI Heparin Sodium (Porcine) (Heparin 100 Unit/Ml 5ml Flush) 5 ml FLUSH PRN PRN PRN Reason: Flush Stop: 02/14/24 03:30 Last Admin: 01/16/24 05:30 Dose: 5 ml Documented By: Admin: 01/15/24 07:08 Dose: 5 ml Documented By: MARIAN Thiamine HCl 200 mg/ Sodium (Chloride) 52 mls @ 210 mls[facility] [place] Stop: 02/19/24 08:59 Last Infusion: 01/25/24 09:08 Dose: Infused Documented By: Admin: 01/25/24 08:03 Dose: 210 mls/hr Documented By: Infusion: 01/24/24 09:12 Dose: Infused Documented By: Admin: 01/24/24 08:38 Dose: 210 mls/hr Documented By: Infusion: 01/23/24 09:22 Dose: Infused Documented By: Admin: 01/23/24 08:46 Dose: 210 mls/hr Documented By: Infusion: 01/22/24 09:54 Dose: Infused Documented By: Admin: 01/22/24 09:01 Dose: 210 mls/hr Documented By: Infusion: 01/21/24 10:08 Dose: Infused Documented By: Admin: 01/21/24 09:47 Dose: 210 mls/hr Documented By: Infusion: 01/20/24 10:04 Dose: Infused Documented By: Admin: 01/20/24 09:18 Dose: 210 mls/hr Documented By: CHOLO Famotidine (Pepcid 20mg Iv Push) 20 mg in 5 mls @ 2.5 mls/min IV Q12 KELSY Stop: 02/19/24 11:14 Last Admin: 01/25/24 08:04 Dose: 2.5 mls/min Documented By: Admin: 01/24/24 20:24 Dose: 2.5 mls/min Documented By: Admin: 01/24/24 08:37 Dose: 2.5 mls/min Documented By: Admin: 01/23/24 20:40 Dose: 2.5 mls/min Documented By: Admin: 01/23/24 10:19 Dose: 2.5 mls/min Documented By: Admin: 01/22/24 21:57 Dose: 2.5 mls/min Documented By: Admin: 01/22/24 09:48 Dose: 2.5 mls/min Documented By: Admin: 01/21/24 21:00 Dose: 2.5 mls/min Documented By: Admin: 01/21/24 09:51 Dose: 2.5 mls/min Documented By: Admin: 01/20/24 21:15 Dose: 2.5 mls/min Documented By: Admin: 01/20/24 12:00 Dose: 2.5 mls/min Documented By: CHOLO Insulin Aspart (Insulin Aspart Per Unit Charge) 0 units SC ACHS KELSY Stop: 02/17/24 20:59 Last Admin: 01/25/24 07:58 Dose: 3 units Documented By: CHOLO Co-signed By: SEYMOUR Admin: 01/24/24 20:22 Dose: Not Given Documented By: Admin: 01/24/24 17:06 Dose: 3 units Documented By: CHOLO Co-signed By: SEYMOUR(2) Admin: 01/24/24 12:19 Dose: 2 units Documented By: CHOLO Co-signed By: GONZALEZ Admin: 01/24/24 08:35 Dose: 5 units Documented By: CHOLO Co-signed By: ERAN Admin: 01/23/24 20:41 Dose: Not Given Documented By: Admin: 01/23/24 17:24 Dose: 3 units Documented By: JENN Co-signed By: MARISELA Admin: 01/23/24 12:18 Dose: 2 units Documented By: DLR Co-signed By: GONZALEZ Admin: 01/23/24 08:40 Dose: 2 units Documented By: JENN Co-signed By: MARISELA Admin: 01/22/24 20:57 Dose: 2 units Documented By: MURRAY Co-signed By: ERYN Admin: 01/22/24 17:15 Dose: 1 units Documented By: DLR Co-signed By: SAW Admin: 01/22/24 13:07 Dose: 2 units Documented By: DLR Co-signed By: AM Admin: 01/22/24 08:48 Dose: 2 units Documented By: DLR Co-signed By: MARISELA Admin: 01/21/24 21:02 Dose: 1 units Documented By: MURRAY Co-signed By: ERYN Admin: 01/21/24 17:04 Dose: 5 units Documented By: CHOLO Co-signed By: CARLOS ALBERTO Admin: 01/21/24 12:32 Dose: 4 units Documented By: CHOLO Co-signed By: MAGUE Admin: 01/21/24 08:26 Dose: Not Given Documented By: Admin: 01/20/24 21:14 Dose: 1 units Documented By: MURRAY Co-signed By: ERYN Admin: 01/20/24 17:08 Dose: Not Given Documented By: Admin: 01/20/24 12:00 Dose: 2 units Documented By: CHOLO Co-signed By: FLORIAN Admin: 01/20/24 07:37 Dose: Not Given Documented By: Admin: 01/19/24 20:30 Dose: Not Given Documented By: Admin: 01/19/24 16:51 Dose: Not Given Documented By: Admin: 01/19/24 11:43 Dose: Not Given Documented By: Admin: 01/19/24 08:06 Dose: 1 units Documented By: HEL Co-signed By: FLORIAN Admin: 01/18/24 21:38 Dose: Not Given Documented By: CR(2) Ketoconazole (Ketoconazole 2% Cr 15 Gm Tube) 1 appln EXT DAILY KELSY Stop: 01/26/24 15:14 Last Admin: 01/25/24 08:04 Dose: 1 appln Documented By: Admin: 01/24/24 08:39 Dose: 1 appln Documented By: Admin: 01/23/24 08:43 Dose: 1 appln Documented By: Admin: 01/22/24 08:51 Dose: 1 appln Documented By: Admin: 01/21/24 09:48 Dose: Not Given Documented By: Admin: 01/20/24 09:19 Dose: 1 appln Documented By: Admin: 01/19/24 15:24 Dose: 1 appln Documented By: TULIO Melatonin (Melatonin 3 Mg Tab) 3 mg PO HS PRN PRN Reason: Sleep Stop: 02/19/24 23:56 Last Admin: 01/21/24 00:37 Dose: 3 mg Documented By: MURRAY Metoprolol Tartrate (Metoprolol Tartrate 25 Mg Tab) 25 mg PO BID KELSY Stop: 02/22/24 21:59 Last Admin: 01/25/24 08:03 Dose: 25 mg Documented By: Admin: 01/24/24 20:24 Dose: 25 mg Documented By: Admin: 01/24/24 08:40 Dose: 25 mg Documented By: Admin: 01/23/24 23:18 Dose: 25 mg Documented By: MURRAY Naphazoline HCl/Pheniramine Maleate (Naphazolin/Pheniramin Oph Soln 15 Ml Btl) 2 drops OPB BID KELSY Stop: 02/20/24 20:59 Last Admin: 01/25/24 08:03 Dose: 2 drops Documented By: Admin: 01/24/24 20:24 Dose: 2 drops Documented By: Admin: 01/24/24 08:39 Dose: 2 drops Documented By: Admin: 01/23/24 20:41 Dose: 2 drops Documented By: Admin: 01/23/24 08:42 Dose: 2 drops Documented By: Admin: 01/22/24 20:57 Dose: 2 drops Documented By: Admin: 01/22/24 08:52 Dose: 2 drops Documented By: Admin: 01/21/24 21:02 Dose: 2 drops Documented By: MURRAY Ondansetron HCl (Ondansetron Inj 2 Mg/Ml 2 Ml Vial) 4 mg IV Q6H PRN PRN Reason: Nausea Stop: 02/10/24 14:46 Last Admin: 01/17/24 09:17 Dose: 4 mg Documented By: RICARDO(2) Admin: 01/11/24 21:13 Dose: 4 mg Documented By: HNT Pantoprazole Sodium (Pantoprazole 40 Mg Tab) 40 mg PO BID KELSY Stop: 02/17/24 20:59 Last Admin: 01/20/24 09:18 Dose: Not Given Documented By: Admin: 01/19/24 20:31 Dose: Not Given Documented By: Admin: 01/19/24 10:11 Dose: Not Given Documented By: Admin: 01/18/24 20:10 Dose: 40 mg Documented By: CR(2) Polyethylene Glycol (Polyethylene (Miralax) 17 Gm Pack) 17 gm PO DAILY KELSY Stop: 02/15/24 08:59 Last Admin: 01/20/24 09:18 Dose: Not Given Documented By: Admin: 01/19/24 10:11 Dose: Not Given Documented By: Admin: 01/18/24 09:26 Dose: 17 gm Documented By: Admin: 01/17/24 08:05 Dose: 17 gm Documented By: CM(2) Admin: 01/16/24 08:07 Dose: 17 gm Documented By: CM(2) Potassium Citrate (Potassium Citrate 10 Meq Tab) 10 meq PO BID KELSY Stop: 02/10/24 20:59 Last Admin: 01/20/24 09:18 Dose: Not Given Documented By: Admin: 01/19/24 20:31 Dose: Not Given Documented By: Admin: 01/19/24 10:11 Dose: Not Given Documented By: Admin: 01/18/24 20:09 Dose: 10 meq Documented By: CR(2) Admin: 01/18/24 09:24 Dose: 10 meq Documented By: Admin: 01/17/24 21:20 Dose: 10 meq Documented By: CR(2) Admin: 01/17/24 08:04 Dose: 10 meq Documented By: CM(2) Admin: 01/16/24 23:28 Dose: 10 meq Documented By: Admin: 01/16/24 08:07 Dose: 10 meq Documented By: CM(2) Admin: 01/15/24 21:26 Dose: 10 meq Documented By: Admin: 01/15/24 09:15 Dose: 10 meq Documented By: Admin: 01/14/24 20:16 Dose: 10 meq Documented By: Admin: 01/14/24 08:11 Dose: 10 meq Documented By: Admin: 01/13/24 21:08 Dose: 10 meq Documented By: Admin: 01/13/24 08:28 Dose: 10 meq Documented By: Admin: 01/12/24 21:00 Dose: Not Given Documented By: DarrenT Admin: 01/12/24 08:19 Dose: 10 meq Documented By: Admin: 01/11/24 21:07 Dose: 10 meq Documented By: HNT Pravastatin Sodium (Pravastatin Sod 20 Mg Tab) 20 mg PO HS KELSY Stop: 02/10/24 20:59 Last Admin: 01/17/24 21:21 Dose: 20 mg Documented By: AKIN(2) Admin: 01/16/24 23:29 Dose: 20 mg Documented By: Admin: 01/15/24 21:26 Dose: 20 mg Documented By: Admin: 01/14/24 20:15 Dose: 20 mg Documented By: Admin: 01/13/24 21:08 Dose: 20 mg Documented By: Admin: 01/12/24 21:01 Dose: Not Given Documented By: Admin: 01/11/24 21:07 Dose: 20 mg Documented By: JAMEST Prednisone (Prednisone 20 Mg Tab) 60 mg PO DAILY KELSY Stop: 02/24/24 08:59 Last Admin: 01/25/24 08:03 Dose: 60 mg Documented By: CHOLO Pregabalin (Pregabalin 150 Mg Cap) 150 mg PO BID KELSY Stop: 02/14/24 10:59 Last Admin: 01/20/24 09:18 Dose: Not Given Documented By: Admin: 01/19/24 20:31 Dose: Not Given Documented By: Admin: 01/19/24 10:11 Dose: Not Given Documented By: Admin: 01/18/24 21:42 Dose: 150 mg Documented By: CR(2) Admin: 01/18/24 09:26 Dose: 150 mg Documented By: Admin: 01/17/24 21:23 Dose: 150 mg Documented By: CR(2) Admin: 01/17/24 08:04 Dose: 150 mg Documented By: CM(2) Admin: 01/16/24 23:32 Dose: 150 mg Documented By: Admin: 01/16/24 08:06 Dose: 150 mg Documented By: CM(2) Admin: 01/15/24 21:26 Dose: 150 mg Documented By: Admin: 01/15/24 10:58 Dose: 150 mg Documented By: MARIAN Discontinued Medications Allopurinol (Allopurinol 100 Mg Tab) 100 mg PO BID KELSY Stop: 02/10/24 20:59 Last Admin: 01/18/24 09:23 Dose: 100 mg Documented By: Admin: 01/17/24 21:20 Dose: 100 mg Documented By: AKIN(2) Admin: 01/17/24 08:04 Dose: 100 mg Documented By: CM(2) Admin: 01/16/24 23:29 Dose: 100 mg Documented By: Admin: 01/16/24 08:07 Dose: 100 mg Documented By: RICARDO(2) Admin: 01/15/24 21:26 Dose: 100 mg Documented By: Admin: 01/14/24 08:11 Dose: 100 mg Documented By: Admin: 01/13/24 21:09 Dose: 100 mg Documented By: Admin: 01/13/24 08:29 Dose: 100 mg Documented By: Admin: 01/12/24 20:34 Dose: Not Given Documented By: Admin: 01/12/24 08:20 Dose: 100 mg Documented By: Admin: 01/11/24 21:07 Dose: 100 mg Documented By: RODRICK Allopurinol (Allopurinol 100 Mg Tab) 100 mg PO DAILY KELSY Stop: 02/18/24 08:59 Last Admin: 01/19/24 10:12 Dose: Not Given Documented By: TULIO Doxycycline Hyclate (Doxycycline Hyclate 100 Mg Cap) 100 mg PO BID KELSY Stop: 01/30/24 09:29 Last Admin: 01/20/24 09:18 Dose: Not Given Documented By: Admin: 01/19/24 20:30 Dose: Not Given Documented By: Admin: 01/19/24 10:11 Dose: Not Given Documented By: Admin: 01/18/24 20:08 Dose: 100 mg Documented By: AKIN(2) Admin: 01/18/24 09:23 Dose: 100 mg Documented By: Admin: 01/17/24 21:21 Dose: 100 mg Documented By: AKIN(2) Admin: 01/17/24 08:04 Dose: 100 mg Documented By: RICARDO(2) Admin: 01/16/24 23:29 Dose: 100 mg Documented By: Admin: 01/16/24 10:40 Dose: 100 mg Documented By: RICARDO(2) Furosemide (Furosemide 40 Mg/4 Ml Vial) 40 mg IV ONE ONE Stop: 01/11/24 13:20 Last Admin: 01/11/24 13:47 Dose: 40 mg Documented By: ABDIAS Gadobutrol (Gadobutrol 30ml Vial) 13 ml IV ONCE ONE Stop: 01/21/24 17:55 Last Admin: 01/21/24 17:54 Dose: 13 ml Documented By: BERLIN Hydromorphone HCl (Hydromorphone Inj 0.5 Mg/0.5 Ml Syr) 0.25 mg IV NOW STA Stop: 01/13/24 15:57 Last Admin: 01/13/24 16:31 Dose: 0.25 mg Documented By: MARIAN Magnesium Sulfate/Dextrose (Magnesium Sulfate / D5w) 1 gm in 100 mls @ 100 mls/hr IV NOW STA Stop: 01/11/24 14:18 Last Infusion: 01/11/24 15:03 Dose: Infused Documented By: Admin: 01/11/24 13:48 Dose: 100 mls/hr Documented By: ABDIAS Ceftriaxone Sodium (Rocephin) 2,000 mg in 50 mls @ 100 mls/hr IV Q24H KELSY Stop: 01/18/24 15:59 Last Infusion: 01/16/24 16:56 Dose: Infused Documented By: RICARDO(2) Admin: 01/16/24 16:23 Dose: 100 mls/hr Documented By: RICARDO(2) Infusion: 01/15/24 18:57 Dose: Infused Documented By: Admin: 01/15/24 18:27 Dose: 100 mls/hr Documented By: Infusion: 01/14/24 17:58 Dose: Infused Documented By: Admin: 01/14/24 17:28 Dose: 100 mls/hr Documented By: Infusion: 01/13/24 17:12 Dose: Infused Documented By: Admin: 01/13/24 16:26 Dose: 100 mls/hr Documented By: Infusion: 01/12/24 17:28 Dose: Infused Documented By: Admin: 01/12/24 15:45 Dose: 100 mls/hr Documented By: Infusion: 01/11/24 16:27 Dose: Infused Documented By: Admin: 01/11/24 15:52 Dose: 100 mls/hr Documented By: SNS Vancomycin HCl 2,750 mg/ (Sodium Chloride) 555 mls @ 180 mls/hr IV NOW STA Stop: 01/11/24 18:25 Last Infusion: 01/11/24 20:16 Dose: Infused Documented By: Admin: 01/11/24 17:11 Dose: 180 mls/hr Documented By: WRL Vancomycin HCl 1,500 mg/ (Sodium Chloride) 530 mls @ 200 mls/hr IV Q24H KELSY Stop: 01/19/24 05:59 Last Infusion: 01/13/24 08:52 Dose: Infused Documented By: Admin: 01/13/24 06:13 Dose: 200 mls/hr Documented By: Infusion: 01/12/24 09:59 Dose: Infused Documented By: Admin: 01/12/24 06:41 Dose: 200 mls/hr Documented By: HNT Sodium Chloride (Nss) 1,000 mls @ 999 mls/hr IV .Q1H1M KELSY Stop: 01/12/24 13:00 Last Infusion: 01/12/24 13:13 Dose: Infused Documented By: Admin: 01/12/24 12:00 Dose: 999 mls/hr Documented By: MTM Sodium Chloride (Nss) 1,000 mls @ 999 mls/hr IV .Q1H1M KELSY Stop: 01/12/24 14:21 Last Infusion: 01/13/24 07:52 Dose: Infused Documented By: Admin: 01/12/24 13:21 Dose: 999 mls/hr Documented By: MTM Norepinephrine Bitartrate (Levophed/D5w) 4 mg in 250 mls @ 0 mls/hr IV .Q0M KELSY; Protocol Stop: 02/11/24 15:14 Last Titration: 01/15/24 15:50 Dose: Infused Documented By: Titration: 01/15/24 06:25 Dose: 0 mcg/kg/min, 0 mls/hr Documented By: Titration: 01/15/24 05:00 Dose: 0.01 mcg/kg/min, 4.6 mls/hr Documented By: Titration: 01/15/24 04:25 Dose: 0.02 mcg/kg/min, 9.2 mls/hr Documented By: Titration: 01/14/24 23:03 Dose: 0.03 mcg/kg/min, 13.7 mls/hr Documented By: Admin: 01/14/24 21:27 Dose: 0.04 mcg/kg/min, 18.3 mls/hr Documented By: LLP Co-signed By: [id number] Titration: 01/14/24 20:28 Dose: Infused Documented By: LLP Co-signed By: [id number] Admin: 01/14/24 20:24 Dose: Not Given Documented By: Titration: 01/14/24 20:24 Dose: 0.02 mcg/kg/min, 9.2 mls/hr Documented By: Titration: 01/14/24 20:12 Dose: 0.04 mcg/kg/min, 18.3 mls/hr Documented By: Titration: 01/14/24 18:57 Dose: 0.05 mcg/kg/min, 22.9 mls/hr Documented By: MARIAN Co-signed By: LLP Titration: 01/14/24 18:07 Dose: 0.05 mcg/kg/min, 22.9 mls/hr Documented By: Admin: 01/14/24 16:14 Dose: Not Given Documented By: Titration: 01/14/24 14:07 Dose: 0.03 mcg/kg/min, 13.7 mls/hr Documented By: Titration: 01/14/24 13:17 Dose: 0.05 mcg/kg/min, 22.9 mls/hr Documented By: Titration: 01/14/24 10:29 Dose: 0 mcg/kg/min, 0 mls/hr Documented By: Titration: 01/14/24 08:05 Dose: 0.05 mcg/kg/min, 22.9 mls/hr Documented By: Titration: 01/14/24 07:00 Dose: 0 mcg/kg/min, 0 mls/hr Documented By: MARIAN Co-signed By: MNM Titration: 01/14/24 06:15 Dose: 0 mcg/kg/min, 0 mls/hr Documented By: Titration: 01/14/24 05:33 Dose: 0.02 mcg/kg/min, 9.2 mls/hr Documented By: Admin: 01/14/24 02:07 Dose: 0.04 mcg/kg/min, 18.3 mls/hr Documented By: MNM Co-signed By: MMG Titration: 01/14/24 02:07 Dose: Infused Documented By: MNM Co-signed By: MMG Admin: 01/13/24 22:46 Dose: Not Given Documented By: Titration: 01/13/24 22:04 Dose: 0.04 mcg/kg/min, 18.3 mls/hr Documented By: Titration: 01/13/24 19:00 Dose: 0.02 mcg/kg/min, 9.2 mls/hr Documented By: MARIAN Co-signed By: MNM Titration: 01/13/24 18:32 Dose: 0.02 mcg/kg/min, 9.2 mls/hr Documented By: Titration: 01/13/24 16:20 Dose: 0.04 mcg/kg/min, 18.3 mls/hr Documented By: Titration: 01/13/24 15:28 Dose: 0.02 mcg/kg/min, 9.2 mls/hr Documented By: Admin: 01/13/24 10:13 Dose: 0.03 mcg/kg/min, 13.7 mls/hr Documented By: BRADLEY Co-signed By: MARIAN Titration: 01/13/24 09:53 Dose: Infused Documented By: BRADLEY Co-signed By: MARIAN Titration: 01/13/24 08:59 Dose: 0.05 mcg/kg/min, 22.9 mls/hr Documented By: Admin: 01/13/24 07:21 Dose: Not Given Documented By: Titration: 01/13/24 06:58 Dose: 0 mcg/kg/min, 0 mls/hr Documented By: JT Co-signed By: BRADLEY Titration: 01/13/24 06:13 Dose: 0 mcg/kg/min, 0 mls/hr Documented By: Titration: 01/12/24 18:57 Dose: 0.03 mcg/kg/min, 13.7 mls/hr Documented By: DarrenT Co-signed By: AMB Titration: 01/12/24 16:35 Dose: 0.03 mcg/kg/min, 13.7 mls/hr Documented By: Titration: 01/12/24 16:21 Dose: 0 mcg/kg/min, 0 mls/hr Documented By: Admin: 01/12/24 14:29 Dose: 0.05 mcg/kg/min, 22.9 mls/hr Documented By: MARYANNE Co-signed By: OZZY Parenteral Electrolytes (Plasma-Lyte A Ph 7.4) 500 mls @ 999 mls/hr IV .Q31M ONE Stop: 01/12/24 18:03 Last Infusion: 01/12/24 18:27 Dose: Infused Documented By: Admin: 01/12/24 16:35 Dose: 999 mls/hr Documented By: MARYANNE Magnesium Sulfate/Dextrose (Magnesium Sulfate / D5w) 1 gm in 100 mls @ 50 mls/hr IV Q2H KELSY Stop: 01/13/24 11:14 Last Infusion: 01/13/24 11:14 Dose: Infused Documented By: Admin: 01/13/24 10:12 Dose: 50 mls/hr Documented By: Infusion: 01/13/24 09:24 Dose: Infused Documented By: Admin: 01/13/24 07:24 Dose: 50 mls/hr Documented By: BRADLEY Sodium Chloride (Nss) 250 mls @ 999 mls/hr IV .Q16M ONE Stop: 01/13/24 10:01 Last Infusion: 01/13/24 10:29 Dose: Infused Documented By: Admin: 01/13/24 10:13 Dose: 999 mls/hr Documented By: BRADLEY Parenteral Electrolytes (Plasma-Lyte A Ph 7.4) 250 mls @ 999 mls/hr IV .Q16M ONE Stop: 01/13/24 12:37 Last Infusion: 01/13/24 15:58 Dose: Infused Documented By: Admin: 01/13/24 12:33 Dose: 999 mls/hr Documented By: MARIAN Daptomycin 375 mg/ Syringe 7.5 mls @ 3.75 mls/min IV Q24H KELSY; Protocol Stop: 01/18/24 23:59 Last Admin: 01/17/24 10:34 Dose: 3.75 mls/min Documented By: CM(2) Admin: 01/16/24 10:40 Dose: 3.75 mls/min Documented By: RICARDO(2) Admin: 01/15/24 11:54 Dose: 3.75 mls/min Documented By: Admin: 01/14/24 11:31 Dose: 3.75 mls/min Documented By: MARIAN Sodium Chloride (Nss) 500 mls @ 999 mls/hr IV .Q31M ONE Stop: 01/16/24 20:32 Last Infusion: 01/16/24 23:55 Dose: Infused Documented By: AKIN(2) Admin: 01/16/24 20:08 Dose: 999 mls/hr Documented By: KAYLA Acetaminophen (Ofirmev) 1,000 mg in 100 mls @ 400 mls/hr IV NOW STA Stop: 01/16/24 21:04 Last Infusion: 01/16/24 21:17 Dose: Infused Documented By: Admin: 01/16/24 21:02 Dose: 400 mls/hr Documented By: USMAN Sodium Chloride (Nss) 1,000 mls @ 999 mls/hr IV .Q1H1M ONE Stop: 01/16/24 21:51 Last Infusion: 01/16/24 23:57 Dose: Infused Documented By: AKIN(2) Admin: 01/16/24 21:10 Dose: 999 mls/hr Documented By: USMAN Sodium Chloride (Nss) 1,000 mls @ 100 mls/hr IV .Q10H KELSY Stop: 01/17/24 19:14 Last Infusion: 01/17/24 20:34 Dose: Infused Documented By: CR(2) Admin: 01/17/24 10:32 Dose: 100 mls/hr Documented By: CM(2) Infusion: 01/17/24 09:29 Dose: Infused Documented By: RICARDO(2) Admin: 01/16/24 23:29 Dose: 100 mls/hr Documented By: KAYLA Piperacillin Sod/Tazobactam (Sod 4.5 gm/ Dextrose) 100 mls @ 25 mls/hr IV Q8H KELSY; Protocol Stop: 01/24/24 00:59 Last Infusion: 01/17/24 09:15 Dose: Infused Documented By: RICARDO(2) Admin: 01/17/24 05:00 Dose: 25 mls/hr Documented By: KAYLA Piperacillin Sod/Tazobactam (Sod 4.5 gm/ Dextrose) 100 mls @ 200 mls/hr IV NOW ONE; Protocol Stop: 01/17/24 01:44 Last Infusion: 01/17/24 01:57 Dose: Infused Documented By: Admin: 01/17/24 01:26 Dose: 200 mls/hr Documented By: KAYLA Magnesium Sulfate/Dextrose (Magnesium Sulfate / D5w) 1 gm in 100 mls @ 50 mls/hr IV ONE ONE Stop: 01/17/24 09:14 Last Infusion: 01/17/24 09:49 Dose: Infused Documented By: RICARDO(2) Admin: 01/17/24 07:37 Dose: 50 mls/hr Documented By: RICARDO(2) Cefepime HCl 2,000 mg/ Syringe 20 mls @ 5 mls/min IV Q12H KELSY; Protocol Stop: 01/27/24 09:59 Last Admin: 01/18/24 22:36 Dose: 5 mls/min Documented By: CR(2) Admin: 01/18/24 10:06 Dose: 5 mls/min Documented By: Admin: 01/17/24 21:39 Dose: 5 mls/min Documented By: CR(2) Admin: 01/17/24 10:33 Dose: 5 mls/min Documented By: RICARDO(2) Acetaminophen (Ofirmev) 1,000 mg in 100 mls @ 400 mls/hr IV NOW STA Stop: 01/17/24 20:57 Last Infusion: 01/17/24 21:19 Dose: Infused Documented By: CR(2) Admin: 01/17/24 21:04 Dose: 400 mls/hr Documented By: CR(2) Acyclovir Sodium 1,200 mg/ (Dextrose) 274 mls @ 250 mls/hr IV Q12H KELSY; Protocol Stop: 01/28/24 12:59 Last Infusion: 01/19/24 06:26 Dose: Infused Documented By: CR(2) Admin: 01/19/24 04:59 Dose: 250 mls/hr Documented By: CR(2) Infusion: 01/18/24 14:59 Dose: Infused Documented By: Admin: 01/18/24 13:15 Dose: 250 mls/hr Documented By: RICARDO Ampicillin Sodium 2,000 mg/ (Sodium Chloride) 100 mls @ 200 mls/hr IV Q6H KELSY Stop: 01/28/24 12:59 Last Infusion: 01/19/24 08:27 Dose: Infused Documented By: Admin: 01/19/24 07:47 Dose: 200 mls/hr Documented By: Infusion: 01/19/24 04:50 Dose: Infused Documented By: CR(2) Admin: 01/19/24 03:21 Dose: 200 mls/hr Documented By: CR(2) Infusion: 01/18/24 20:36 Dose: Infused Documented By: CR(2) Admin: 01/18/24 20:02 Dose: 200 mls/hr Documented By: CR(2) Infusion: 01/18/24 13:47 Dose: Infused Documented By: Admin: 01/18/24 13:10 Dose: 200 mls/hr Documented By: RICARDO Dexamethasone 10 mg/ Syringe 2.5 mls @ 1 mls/min IV Q6H KELSY Stop: 02/17/24 15:29 Last Admin: 01/21/24 04:29 Dose: 1 mls/min Documented By: Admin: 01/20/24 21:15 Dose: 1 mls/min Documented By: Admin: 01/20/24 15:13 Dose: 1 mls/min Documented By: Admin: 01/20/24 10:06 Dose: 1 mls/min Documented By: Admin: 01/20/24 04:09 Dose: 1 mls/min Documented By: Admin: 01/19/24 20:33 Dose: 1 mls/min Documented By: Admin: 01/19/24 15:24 Dose: 1 mls/min Documented By: Admin: 01/19/24 10:12 Dose: 1 mls/min Documented By: Admin: 01/19/24 04:59 Dose: 1 mls/min Documented By: CR(2) Admin: 01/18/24 21:43 Dose: 1 mls/min Documented By: CR(2) Admin: 01/18/24 16:29 Dose: 1 mls/min Documented By: RICARDO Sodium Chloride (Nss) 500 mls @ 999 mls/hr IV .Q31M ONE Stop: 01/18/24 16:16 Last Infusion: 01/18/24 17:55 Dose: Infused Documented By: Admin: 01/18/24 16:32 Dose: 999 mls/hr Documented By: RICARDO Ceftriaxone Sodium (Rocephin) 2,000 mg in 50 mls @ 100 mls/hr IV Q24H KELSY Stop: 01/29/24 09:59 Last Infusion: 01/22/24 09:55 Dose: Infused Documented By: Admin: 01/22/24 08:57 Dose: 100 mls/hr Documented By: Infusion: 01/21/24 11:01 Dose: Infused Documented By: Admin: 01/21/24 09:52 Dose: 100 mls/hr Documented By: Infusion: 01/20/24 11:40 Dose: Infused Documented By: Admin: 01/20/24 10:42 Dose: 100 mls/hr Documented By: Infusion: 01/19/24 11:44 Dose: Infused Documented By: Admin: 01/19/24 11:02 Dose: 100 mls/hr Documented By: TULIO Thiamine HCl 500 mg/ Sodium (Chloride) 55 mls @ 210 mls/hr IV NOW STA Stop: 01/19/24 14:57 Last Infusion: 01/19/24 15:48 Dose: Infused Documented By: Admin: 01/19/24 15:24 Dose: 210 mls/hr Documented By: HEL Sodium Chloride (Nss) 1,000 mls @ 80 mls/hr IV .[id number] KELSY Stop: 01/21/24 07:29 Last Infusion: 01/21/24 08:48 Dose: Infused Documented By: Admin: 01/20/24 20:07 Dose: 80 mls/hr Documented By: Infusion: 01/20/24 18:33 Dose: Infused Documented By: Admin: 01/20/24 06:03 Dose: 80 mls/hr Documented By: Infusion: 01/20/24 06:03 Dose: Infused Documented By: Admin: 01/19/24 18:26 Dose: 80 mls/hr Documented By: HEL Acetaminophen (Ofirmev) 1,000 mg in 100 mls @ 400 mls/hr IV Q8H PRN; Protocol PRN Reason: PAIN OR FEVER Stop: 01/23/24 11:14 Last Infusion: 01/21/24 04:48 Dose: Infused Documented By: Admin: 01/21/24 01:12 Dose: 400 mls/hr Documented By: Infusion: 01/20/24 16:15 Dose: Infused Documented By: Admin: 01/20/24 15:53 Dose: 400 mls/hr Documented By: CHOLO Dexamethasone 10 mg/ Syringe 2.5 mls @ 1 mls/min IV DAILY KELSY Stop: 02/20/24 08:59 Last Admin: 01/21/24 09:47 Dose: 1 mls/min Documented By: CHOLO Dexamethasone 10 mg/ Syringe 2.5 mls @ 1 mls/min IV BID KELSY Stop: 02/20/24 20:59 Last Admin: 01/24/24 08:38 Dose: 1 mls/min Documented By: Admin: 01/23/24 20:42 Dose: 1 mls/min Documented By: Admin: 01/23/24 08:45 Dose: 1 mls/min Documented By: Admin: 01/22/24 20:57 Dose: 1 mls/min Documented By: Admin: 01/22/24 09:48 Dose: 1 mls/min Documented By: Admin: 01/21/24 21:01 Dose: 1 mls/min Documented By: MURRAY Sodium Chloride (Nss) 1,000 mls @ 80 mls/hr IV .[id number] KELSY Stop: 01/23/24 02:29 Last Infusion: 01/23/24 03:54 Dose: Infused Documented By: Admin: 01/22/24 14:34 Dose: 80 mls/hr Documented By: JENN Sodium Chloride (Nss) 500 mls @ 999 mls/hr IV .Q31M ONE Stop: 01/23/24 06:13 Last Infusion: 01/23/24 06:08 Dose: Infused Documented By: Admin: 01/23/24 05:48 Dose: 999 mls/hr Documented By: ARI Parenteral Electrolytes (Plasma-Lyte A Ph 7.4) 250 mls @ 999 mls/hr IV .Q16M ONE Stop: 01/23/24 10:01 Last Infusion: 01/23/24 10:50 Dose: Infused Documented By: Admin: 01/23/24 10:21 Dose: 999 mls/hr Documented By: DLR Ioversol (Optiray 320 100ml) 94 ml IV ONCE ONE Stop: 01/11/24 13:37 Last Admin: 01/11/24 13:40 Dose: 94 ml Documented By: PLLyubov Lidocaine (Lidocaine 5% 1 Patch) 1 patch TD NOW STA Stop: 01/20/24 23:57 Last Admin: 01/21/24 03:40 Dose: Not Given Documented By: MURRAY Lidocaine HCl (Lidocaine 2% Jelly 5 Ml Tube) Confirm Administered Dose 5 ml EXT .STK-MED ONE Stop: 01/12/24 18:07 Last Admin: 01/13/24 07:21 Dose: Not Given Documented By: BRADLEY Lorazepam (Lorazepam 0.5 Mg Tab) 0.5 mg PO PRN PRN PRN Reason: MRI Last Admin: 01/21/24 17:06 Dose: 0.5 mg Documented By: CHOLO Metoprolol Tartrate (Metoprolol Tartrate 1 Mg/Ml Vial) 5 mg IV NOW STA Stop: 01/23/24 05:41 Last Admin: 01/23/24 05:48 Dose: 5 mg Documented By: ARI Metoprolol Tartrate (Metoprolol Tartrate 1 Mg/Ml Vial) Confirm Administered Dose 5 mg IV .STK-MED ONE Stop: 01/23/24 05:41 Last Admin: 01/23/24 05:59 Dose: Not Given Documented By: ARI Midodrine (Midodrine Hcl 2.5 Mg Tab) 5 mg PO TID@0800,1200,1700 [facility] Stop: 02/13/24 11:59 Last Admin: 01/20/24 17:08 Dose: 5 mg Documented By: Admin: 01/20/24 12:01 Dose: 5 mg Documented By: Admin: 01/20/24 07:37 Dose: Not Given Documented By: Admin: 01/19/24 16:28 Dose: Not Given Documented By: Admin: 01/19/24 11:44 Dose: Not Given Documented By: Admin: 01/19/24 10:11 Dose: Not Given Documented By: Admin: 01/18/24 16:29 Dose: 5 mg Documented By: Admin: 01/18/24 13:11 Dose: 5 mg Documented By: Admin: 01/18/24 09:23 Dose: 5 mg Documented By: Admin: 01/17/24 16:51 Dose: 5 mg Documented By: CM(2) Admin: 01/17/24 12:47 Dose: 5 mg Documented By: CM(2) Admin: 01/17/24 08:05 Dose: 5 mg Documented By: CM(2) Admin: 01/16/24 16:23 Dose: 5 mg Documented By: CM(2) Admin: 01/16/24 11:51 Dose: 5 mg Documented By: CM(2) Admin: 01/16/24 08:07 Dose: 5 mg Documented By: CM(2) Admin: 01/15/24 18:27 Dose: 5 mg Documented By: Admin: 01/15/24 13:37 Dose: 5 mg Documented By: Admin: 01/15/24 09:16 Dose: 5 mg Documented By: Admin: 01/14/24 17:28 Dose: 5 mg Documented By: Admin: 01/14/24 11:30 Dose: 5 mg Documented By: MARIAN Midodrine (Midodrine Hcl 2.5 Mg Tab) 5 mg PO ONE ONE Stop: 01/18/24 15:48 Last Admin: 01/18/24 16:29 Dose: 5 mg Documented By: RICARDO Miscellaneous (Order Awaiting Action: Fluorometholone 0.1%) 1 each N/A QS KELSY Stop: 02/11/24 00:00 Last Admin: 01/15/24 09:16 Dose: Not Given Documented By: Admin: 01/14/24 23:52 Dose: Not Given Documented By: Admin: 01/14/24 17:22 Dose: Not Given Documented By: Admin: 01/14/24 08:11 Dose: Not Given Documented By: Admin: 01/13/24 22:47 Dose: Not Given Documented By: Admin: 01/13/24 16:26 Dose: Not Given Documented By: Admin: 01/13/24 08:30 Dose: Not Given Documented By: Admin: 01/13/24 03:51 Dose: Not Given Documented By: Admin: 01/12/24 15:45 Dose: Not Given Documented By: Admin: 08/09/24 08:20 Dose: Not Given Documented By: Admin: 01/12/24 00:33 Dose: Not Given Documented By: JAMEST Miscellaneous (Remove Lidoderm Patch) 1 each N/A 1200 ONE Stop: 01/21/24 12:01 Last Admin: 01/21/24 12:33 Dose: Not Given Documented By: MP Norepinephrine Bitartrate (Norepinephrine/D5w 4 Mg/250 Ml) Confirm Administered Dose 4 mg IV .STK-MED ONE Stop: 01/12/24 14:26 Last Admin: 01/12/24 15:39 Dose: Not Given Documented By: AMB Pregabalin (Pregabalin 150 Mg Cap) 300 mg PO BID KELSY Stop: 02/10/24 20:59 Last Admin: 01/15/24 11:39 Dose: Not Given Documented By: Admin: 01/14/24 20:22 Dose: 300 mg Documented By: Admin: 01/14/24 08:12 Dose: 300 mg Documented By: Admin: 01/13/24 21:08 Dose: 300 mg Documented By: Admin: 01/13/24 08:28 Dose: 300 mg Documented By: Admin: 01/12/24 21:01 Dose: Not Given Documented By: Admin: 01/12/24 08:23 Dose: 300 mg Documented By: Admin: 01/11/24 21:07 Dose: 300 mg Documented By: JAMEST Description This is a 21 electrode EEG with a single channel dedicated to limited EKG. The electrodes were placed in accordance with the International 10-20 system. Interpretation The predominant background activity consists of an irregular 6 to 7 Hz activity of up to 30 V in amplitude seen symmetrically in all head regions. Superimposed over this activity intermittently was 4 to 5 Hz activity of a higher amplitude (50 to 60 V). This mixture of slow activity was seen throughout the recording. Photic stimulation was performed and elicited no change in the background activity and no abnormal responses were seen. Hyperventilation was not performed. A minimal amount of muscle and movement artifact activity contaminated the recording and did not hinder interpretation to any significant degree. Throughout the waking portion of the recording, no focal abnormalities or potentially epileptogenic discharges were seen. The patient entered the drowsy state throughout the latter half of the recording as noted by her amplitude slower activity in general but deeper stages of sleep were not recorded. In summary, this EEG was abnormal during wakefulness, showing a mild (to moderate) generalized cerebral dysrhythmia. This was persistent throughout the recording but there were no focal abnormalities or potentially epileptogenic discharges seen. Clinical Correlation The absence of potentially epileptogenic activity does not exclude a seizure disorder, since interictally, EEGs can be normal. The abnormal slowing is consistent with a mild (to moderate) encephalopathy which could be due to a wide variety of causes. Clinical correlation is required. [facility] Procedure Codes Indication for Procedure (1) Metabolic encephalopathy: Neurology Neurology: 86178 EEG include record awake & drowsy
--- NOTE | 2024-01-25 14:36 | Hospitalist Progress Note ---
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, oncology agrees, started dexamethasone 10 mg q6h as mental status improves, tapered to bid added thiamine iv will send level, persistent improvement neurology recommended EEG, this is with diffuse slowing, no focal events Lower Extremity Cellulitis continues improving Pt has had basilar skull surgery when and this accounts for small changes seen on CT/MRI did go over with Radiology also discussed with Rheumatology regarding rash, does not feel looks to be Rheumatologic or drug related, currently on ketoconazole for seborrheic dermatitis Discussed with ID on 01/21 Will hold further antibiotics as doubt bacterial meningitis, and tickborne infection. LE cellulitis. (2) Atrial fibrillation and flutter: Plan: code purple 01/22 converted and remains in msr, with iv metoprolol cardiol recommended starting scheduled po metoprolol AC for PE with lovenox, ? doac may need coag clinic eval (3) ELISABETH (acute kidney injury): Plan: Status post acute kidney injury now resolved . With a history of CKD stage III. Creatinine normalized Plan History of pulmonary embolism. With failed Coumadin therapy. Pts PE seems to have been pre 2020 from our records, then a possible new small segmental occlusion seen on 01/02 lovneox bid History of malignant melanoma. previously on pembrolizumab monthly . Is follo wing with oncology appreciate inpatient consult encouraged to use dexamethasone. Morbid obesity. High clinical suspicion of obstructive sleep apnea with recommendation with short-term outpatient follow-up with primary care to arrange formal sleep study. If positive then remains untreated this will contribute to ongoing acute decompensation of right-sided heart failure, etc. Admission and Anticipated Discharge Date Admission Date: January 11, 2024 Subjective pt continues to improve daily, removed davidson 01/24, for rehab soon Physical Exam Physical Exam: He is awake and alert x 2 he is confused at times. continues to speak more fluently but still some word searching issues Card exam sounds regular without murmurs lungs are clear with diminished breath sounds at the bases Abdomen is protuberant NABS soft nontender Extremities are with changes of chronic venous stasis but improved from previous Results & Data Results & Data Vital Signs (Past 12 Hours) Vital Signs Temp Pulse Resp BP BP Pulse Ox O2 Del Method 01/25/24 11:43 98.1 F 60 20 174/85 H 96 Room Air 01/25/24 08:00 55 L 18 01/25/24 07:18 97.5 F L 62 20 159/77 H 97 Room Air 01/25/24 03:30 97.5 F L 61 18 156/79 H 96 Room Air PG Care Time/CCT Total # of Minutes Spent Total Time Spent with Patient: Total time spent is greater than 50% in coordination of care (as documented) at patient's floor/unit and/or counseling patient: Coding Level of Care Code 30577 SUB INP/OBS CARE 2/35MIN Diagnoses Metabolic encephalopathy G93.41 Atrial fibrillation and flutter I48.91; I48.92 ELISABETH (acute kidney injury) N17.9
[2024-01-25 20:57] LABS: Lyme IgG Band Pattern CSF DNR; Lyme IgG CSF NO BANDS DETECTED; Lyme IgM Band Pattern CSF DNR; Lyme IgM CSF NO BANDS DETECTED
[2024-01-26 07:26] VITALS: O2SAT 95
[2024-01-26 08:10] LABS: Hematocrit (blood only) 36.6 % (42.0-52.0); Hemoglobin 12.2 g/dl (14.0-18.0); Mean Corpuscular Hemoglobin 32.3 pg (25.0-34.0); Mean Corpuscular Hgb Conc 33.3 g/dL (32.0-36.0); Mean Corpuscular Volume 96.8 fL (80.0-100.0); Mean Platelet Volume 11.2 fL (9.4-12.4); Nucleated RBC # (auto) 0.02 K/uL (0.00-0.12); Nucleated RBC % (auto) 0.2 %; Platelet Count 123 K/uL (130-400); RDW Coefficient of Variation 16.1 % (11.5-14.5); RDW Standard Deviation 55.9 fL (36.4-46.3); Red Blood Count 3.78 M/uL (4.70-6.10); White Blood Count 10.59 K/ul (4.8-10.8)
[2024-01-26] MEDS: FAMOTIDINE 20 MG TAB PO SCH (08:12)
[2024-01-26] MEDS: THIAMINE HCL 100 MG TAB PO SCH (08:12)
[2024-01-26 08:47] LABS: Creatinine Clr Calc Pharmacy 57.2 ml/min; Est GFR (African American) 57.5 ml/min; Est GFR (Non-African American) 49.6 ml/min
[2024-01-26 12:05] VITALS: RESP 20
[2024-01-26 16:48] VITALS: PULSE 60; TEMP 98.1
[2024-01-26 17:35] VITALS: BP 146/78
[2024-01-26 21:27] LABS: Q Fever IgG, Phase I NEGATIVE; Q Fever Phase I IgM Antibody NEGATIVE; Q Fever Phase II IgG Antibody NEGATIVE; Q Fever Phase II IgM Antibody NEGATIVE; R. typhi IgG Ab NOT DETECTED; R. typhi IgM Ab NOT DETECTED; RMSF IgG Ab NOT DETECTED; RMSF IgM Ab NOT DETECTED
--- NOTE | 2024-01-29 21:34 | Discharge Summary ---
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, oncology agrees, started dexamethasone 10 mg q6h as mental status improves, tapered to bid added thiamine iv will send level, persistent improvement neurology recommended EEG, this is with diffuse slowing, no focal events Lower Extremity Cellulitis continues improving Pt has had basilar skull surgery when and this accounts for small changes seen on CT/MRI did go over with Radiology also discussed with Rheumatology regarding rash, does not feel looks to be Rheumatologic or drug related, currently on ketoconazole for seborrheic dermatitis Discussed with ID on 01/21 Will hold further antibiotics as doubt bacterial meningitis, and tickborne infection. LE cellulitis. DIscharge instructions noted below. (2) Atrial fibrillation and flutter: code purple 01/22 converted and remains in msr, with iv metoprolol cardiol recommended starting scheduled po metoprolol AC for PE with lovenox, ? doac may need coag clinic eval (3) ELISABETH (acute kidney injury): Status post acute kidney injury now resolved . With a history of CKD stage III. Creatinine normalized Plan History of pulmonary embolism. With failed Coumadin therapy. Pts PE seems to have been pre 2020 from our records, then a possible new small segmental occlusion seen on 01/02 lovneox bid History of malignant melanoma. previously on pembrolizumab monthly . Is anson morrow with oncology appreciate inpatient consult encouraged to use dexamethasone. Morbid obesity. High clinical suspicion of obstructive sleep apnea with recommendation with short-term outpatient follow-up with primary care to arrange formal sleep study. If positive then remains untreated this will contribute to ongoing acute decompensation of right-sided heart failure, etc. Admission HPI Per Admitting Provider 78-year-old male was discharged on January 09, 2024. He was admitted with bilateral lower extremity cellulitis. Has a history of PE with failed Coumadin therapy and now is on twice daily Lovenox therapy. Had some acute kidney injury during his stay as well. He presented to his outpatient primary care provider's office today for posthospitalization follow-up and was directed back to the ER due to his nausea and vomiting and leg erythema/edema. The patient states his last emesis was around 730 this morning he had 2 episodes of emesis this morning multiple episodes yesterday. He is uncertain as to whether or not he has been keeping his antibiotic down or he has been vomiting and shortly after his antibiotic and may be not getting his recommended dose. In the ER laboratory studies were unremarkable hemoglobin stable at 12.7 creatinine is actually normal at 1.24 electrolytes are satisfactory. Mag was mildly suppressed at 1.5. CT of the abdomen pelvis was performed because of the nausea and vomiting. It was negative for acute findings. There was a right renal cyst noted renal ultrasound recommended on outpatient basis to confirm cyst. Course in the ER the patient received 40 mg of IV Lasix. And received a gram of magnesium sulfate. Recall admit the patient further evaluation and treatment. In comparison to the pictures from the H&P on admission from a week ago, the patient's cellulitis in the right lower extremity is improving its significantly worse on the left lower extremity. Therefore going to place the patient on IV vancomycin and IV Rocephin. Will do no further diuresis given the patient's recent acute kidney failure. He is diuresing well with the 40 mg of Lasix already given. And will maintain him on his 1 mg/kg with subcu Lovenox. Discharge Exam NAD, legs look improved, No erythema noted. cardiac is regular lungs diminished abdomen is soft mildly tender Patient no longer confused. Discharge Plan Discharge Items Patient Disposition: Transfer Inpatient Rehab Fac Reason For Visit: CELLULITIS Discharge Diagnosis: cellulitis Activity: As commented below Activity Comment: as per therapist Non-emergency contact: Primary Care Provider Call non-emergency contact if: you have any medication questions Follow-up/Referrals: Stef Encarnacion MD [Primary Care Provider] - Diet: Carb Count or DM1 and Heart Healthy Addtl Attending Provider Instructions: heme-onc outpatient follow-up in the next 1 to 2 weeks. meds were sent to pharmacy by accident. You do not need to pick it up followup with PCP in 1- 2 weeks Pending Studies at Discharge: No Stand-Alone Forms: My [facility] Skilled Items Patient informed of condition?: Yes DNR: No Discharge Level of Care: Acute rehab Communicable Disease: No Discharge Prognosis: Stable Lines: None Urinary Catheter: No Medications and DC Order Prescriptions: New metoprolol tartrate 25 mg Tablet 25 mg PO BID Qty: 60 0RF Continued enoxaparin [Lovenox] 120 mg/0.8 mL Syringe 120 mg subcut Q12H 30 Days Qty: 48 0RF Discontinued lisinopril-hydrochlorothiazide 10-12.5 mg Tablet 1 tab PO QAM Qty: 0 Hold Instructions: Resume on 02/02/24. until restarted by nephrology or PCP. Rx Instructions: Currently on hold, start back on 02/02/24 potassium citrate 10 mEq (1,080 mg) tablet extended release 10 meq PO BID Rx Instructions: TAKE 1 TABLET BY MOUTH TWICE DAILY cephalexin 500 mg capsule 500 mg PO Q6H 3 Days Qty: 12 0RF Rx Instructions: Start Date 01/09/24 x3 day supply furosemide [Lasix] 40 mg Tablet 40 mg PO DAILY PRN (Reason: Edema) Qty: 30 0RF No Action allopurinol 100 mg tablet 100 mg PO DAILY acetaminophen 650 mg Tablet Extended Release 650 mg PO Q4H PRN (Reason: Pain) Discharge Orders: Discharge Order (Routine); Ordered 01/26/24 Ordered By: Bishnu Hogan Admission Data Admit Date/Time: 01/11/24 14:48 Attending Provider: Bishnu Hogan Admit Provider: Cj Mcdonald Primary Care Provider: Stef Encarnacion Other Providers: [facility],Health; [facility],Care; Cj Mcdonald; Alana Emanuel; Rashida Watson; Mylene Alba; Xochitl Daniel; Cha Arroyo; Isabel Lemus; Daniel Hammer; Zachariah Wilder; Patricia Bass; Mynor Roland; Jeannette Velazco; Eden Johnson; José Luis Jackson Other Interventions: Discharge Summary Assessment (RN) Last Done: 01/26/24 17:31 Hospital Stay Data Consultations 01/11/24 14:24 ED Decision to Admit Stat 01/12/24 12:13 Consult Infectious Diseases Routine 01/12/24 19:12 Consult Application Assistant Routine 01/14/24 10:29 Consult Nephrology Routine 01/18/24 08:46 Consult Oncology Routine 01/23/24 05:48 Consult Cardiology Routine Diagnostic Imagining Performed 01/11/24 13:16 CT Abd and Pelvis [CT abd pelvis IV con only] Stat 01/16/24 20:18 CT head/brain wo con Stat 01/16/24 21:38 MR angio head wo con Stat MR brain wo con Stat 01/17/24 12:02 US gallbladder Routine 01/18/24 08:30 IR lumbar puncture diagnostic Stat 01/19/24 02:55 CT head/brain wo con Stat 01/21/24 21:00 MR brain wo/w con Routine Pending Results Patient Have Any Pending Studies at Discharge: No Discharge Instructions Given to Patient (Per Discharging Provider) heme-onc outpatient follow-up in the next 1 to 2 weeks. meds were sent to pharmacy by accident. You do not need to pick it up followup with PCP in 1- 2 weeks Total Time Total Time Spent Total Time Spent (In Minutes): 32 Coding Level of Care Code 05034 INP/OBS DISCH >30 MIN Diagnoses Metabolic encephalopathy G93.41 Atrial fibrillation and flutter I48.91; I48.92 ELISABETH (acute kidney injury) N17.9
== END 2024-01-26 18:04 | DRG 602 ==
LOC: ED 10:34 → SUATTDRO 14:48 → 2N 14:48 → 1E 01-12 14:08 → 2S 01-15 15:29 → 2W 01-22 23:30 → 2S 01-23 06:09

== ENCOUNTER 2024-01-27 01:27 | Inpatient (IN) ==
--- OUTSIDE RECORDS SUMMARY | 2024-01-27 01:33 | External Medical Summary | Continuity of Care Document ---
Author Name Unknown Organization [address] Address [address] [place], [place] [id number] Care Team Providers Care Tire Classifier Name Role Phone Stef Encarnacion Primary Care Physician [phone] Encounter [facility] [id number] Date(s): 01/16/24 - 01/16/24 EXT Z [facility] [address] [place], [place] [id number] [place] Discharge Disposition: Home or Self Care Attending Physician: MD Jean Raphaella Referring Physician: MD Benjy, Armand Amaya Allergies, Adverse Reactions, Alerts Substance Criticality Severity Reaction Reaction Severity Status simvastatin 1 - muscle and joint pain Active TEGretol rash Active gabapentin rash Active OxyContin rash Active oxyCODONE rash Active traMADol rash Active HYDROcodone rash Active 1muscle and joint pain Immunizations Given and Recorded Vaccine Date Status [...] bid, Disp# 60 tab, Refills: 11, Pharmacy: [id number] Start Date: 12/11/23 Status: Ordered furosemide Start: 01/11/24 9:05:00 AM EDT Start Date: 01/11/24 Status: Ordered Lovenox Start: 01/11/24 9:05:00 AM EDT, bid Start Date: 01/11/24 Status: Ordered Lyrica 150 mg oral capsule Start: 01/11/22 12:55:00 PM EDT, 1 cap, PO, tid, Disp# 90 cap, Refills: 0, Pharmacy: [id number] Start Date: 01/11/22 Status: Ordered MiraLax oral powder for reconstitution Start: 03/14/23 9:19:00 AM EDT, 17 g =, PO, Daily, PRN: constipation Start Date: 03/14/23 Status: Ordered pravastatin 20 mg oral tablet Start: 10/31/23 7:06:00 PM EDT, 1 tab, PO, Daily, Disp# 90 tab, Refills: 3, Pharmacy: [id number] Start Date: 10/31/23 Status: Ordered Systane Start: 02/13/23 4:17:00 PM EDT, as needed dry eyes Start Date: 02/13/23 Status: Ordered Tylenol 500 mg oral tablet Start: 03/30/23 4:02:00 PM EDT, 2 tab, PO, tid Start Date: 03/30/23 Status: Ordered Problem List Condition Confirmation Course Effective Dates [...] ascendign aortic aneurysm. sees Dr. Ramirez in [facility] (cardiology) 4sees Dr. Reddy 13:15 EDT - SHA Solo, Radha Impression: 1. Stable mild aneurysmal dilation of [...] 09/2016 showed fatty liver 15sees Dr. Reddy Procedures Procedure Date Related Diagnosis Body Site [...] X-ray 10 06/30/20 Comp leted 4 teeth 07/[address] of chest with [...] diverticulosis without evidence of acute diverticulitis 14[facility]. [place] [facility] left trigeminal neuralgia 41.8 minutes [...] the fat is likely incidental rather than sales account representative of the lesion, though correlation with [...] 33hyperplastic polyp 34Bilateral- both done twice 35Benign Social History Social History Type Response Smoking Status Never smoked cigaret en Sex Male Sex Representation Male (finding) Implantable Device List Procedure Provider Procedure Date Device Type Site Unknown Unknown 03/30/23 Unknown Unknown Device Identifier Serial Number Lot or Batch Number Manufacturing Date Expiration Date Distinct Identification Code MRI Safety Implantable Status Assigning Authority Unknown Unknown Unknown 06/21/27 Unknown Unknown Active [employer] own Neurology Consult - Tele Stroke * Services, CPDI: PERFORM Event Display: Neurology Consult - Tele Stroke Authored Date: [id number] Patient Care team information Care Team Personnel Name: JAMARI Buchanan Tara Position: Nurse Pract - Family Med Member Role: Lifetime Relationship Address: [address] [place] [address] Name: MD Encarnacion Juan Position: Physician - Family Med Member Role: Primary Care Provider Address: [address] [place] [address], [place] [address] [place] Name: Taty Vance Paula Position: Pharmacist Member Role: Pharmacy - Lifetime Address: [address] [place] [address] [place] Name: Taty Gomes Brittani Position: Pharmacist Member Role: Pharmacy - Lifetime Care Team Related Persons Name: HECTOR HADDAD
--- OUTSIDE RECORDS SUMMARY | 2024-01-27 01:34 | External Medical Summary | Continuity of Care Document ---
Author Name Unknown Organization [address] [id number] Care Team Providers Care Telepathist Name Role Phone Stef Encarnacion Primary Care Physician [phone] [facility]counter [facility] [id number] Date(s): 01/11/24 - 01/11/[address] [address] [phone] Encounter Diagnosis Nausea with vomiting(Discharge Diagnosis) - 01/12/24 Cellulitis of leg(Discharge Diagnosis) - 01/12/24 Leg swelling(Discharge Diagnosis) - 01/12/24 Pulmonary embolism(Discharge Diagnosis) - 01/12/24 Discharge Disposition: Home or Self Care Attending Physician: MD Pearl [place] Referring Physician: MD Ryanne, Elsie Allergies, Adverse Reactions, Alerts Substance Criticality Severity Reaction Reaction Severity Status simvastatin 1 - muscle and joint pain Active gabapentin rash Active OxyContin rash Active oxyCODONE rash Active traMADol rash Active TEGretol rash Active HYDROcodone rash Active 1muscle and joint pain Assessment and Plan Extracted from: Title:Office Visit Note Author:MD Ryanne, [facility] Date:01/12/24 1.Leg swelling Patient was recentlydischarge from the hospital with swelling on both legs and cellulitis. He was prescribed Lasix 40 mg once a day. Patient states that his swelling is worse. He elevates his leg at home. However, he's been vomiting every time he eats or drink. Not sure if his medicine comes out too when he vomits. 2.Nausea with vomiting Zofran 4 mg ODT given today at the office. Did not get much relief after several minutes of observation. 3.Cellulitis of leg Involving both leg. Warm to touch. Patient not able to keep the medicine down due to nausea with vomiting. Discussed with patient about ER transfer. Informed him that becauseof his vomiting, he cannot get his medicine down to his stomach and into his system that's why he is getting worse. Advised to go to ER so he can have IV antibiotic. 4.Pulmonary embolism He was on Coumadin for PE, this was change during recent hospital admission due to Acute on chronic PE. Patient now taking Lovenox 2x a day. Patient agreed to go to ER today. Discussed with patient about referral to Care Management regarding some assistance when he go back home. Reviewed diagnostic scans and hospital records and previous office visits. Immunizations Given and Recorded Vaccine Date Status [...] bid, Disp# 60 tab, Refills: 11, Pharmacy: [id number] Start Date: 12/11/23 Status: Ordered furosemide Start: 01/11/24 9:05:00 AM EDT Start Date: 01/11/24 Status: Ordered Lovenox Start: 01/11/24 9:05:00 AM EDT, bid Start Date: 01/11/24 Status: Ordered Lyrica 150 mg oral capsule Start: 01/11/22 12:55:00 PM EDT, 1 cap, PO, tid, Disp# 90 cap, Refills: 0, Pharmacy: [id number] Start Date: 01/11/22 Status: Ordered MiraLax oral powder for reconstitution Start: 03/14/23 9:19:00 AM EDT, 17 g =, PO, Daily, PRN: constipation Start Date: 03/14/23 Status: Ordered pravastatin 20 mg oral tablet Start: 10/31/23 7:06:00 PM EDT, 1 tab, PO, Daily, Disp# 90 tab, Refills: 3, Pharmacy: [id number] Start Date: 10/31/23 Status: Ordered Systane Start: 02/13/23 4:17:00 PM EDT, as needed dry eyes Start Date: 02/13/23 Status: Ordered Tylenol 500 mg oral tablet Start: 03/30/23 4:02:00 PM EDT, 2 tab, PO, tid Start Date: 03/30/23 Status: Ordered Mental Status 01/11/24 Barriers to Learning one year None evide nt Mandatory Health Literacy Documentation Yes Health Literacy Communication Barriers N ever Primary Language Greenlandic Problem List Condition Confirmation Course Effective Dates [...] ascendign aortic aneurysm. sees Dr. Ramirez in [facility] (cardiology) [address]se[address] Dr[address] Reddy 13:15 EDT - Lang, [employer], Radha Impression: 1. 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 [facility] left trigeminal neuralgia 41.8 minutes [...] fat is likely incidental rather than sales representative facility services of the lesion, though correlation with radiographic [...] Most recent to oldest [Reference Range]: 1 Height 172.7 cm (01/11/24 9:00 AM) Patient Weight 121.9 kg (01/11/24 9:00 AM) Body Mass Index 40.87 kg/m2 (01/11/24 9:00 AM) Heart Rate 99 bpm (01/11/24 9:00 AM) Respiratory Rate 16 br/min (01/11/24 9:00 AM) Blood Pressure 128/60mmHg (01/11/24 9:00 AM) Cuff Pulse Pressure 68 mmHg (01/11/24 9:00 AM) Social History Social History Type Response Smoking Status Never smoked cigaret en Sex Male Sex Representation Male (finding) Implantable Device List Procedure Provider Procedure Date Device Type Site Unknown Unknown 03/30/23 Unknown Unknown Device Identifier Serial Number Lot or Batch Number Manufacturing Date Expiration Date Distinct Identification Code MRI Safety Implantable Status Assigning Authority Unknown Unknown [id number] Unknown 06/21/27 Unknown Unknown Active Unkn own FCM Outpt Note * MD Ryanne, [place]: PERFORM Event Display: FCM Outpt Note Authored Date: [id number] Chief Complaint Discharged from hospital 01/08. On Lovenox injections and furesomide. Stomach very upset- unable to keep anything down, decreased appetite and swelling both feet and legs History of Present Illness 78-year-old male heretoday for posthospital discharge follow-up. He has hx of PE, on chronic anticoagulation (Warfarin), hx of Melanomaon infusion, HTN, HLP, CKD,CRISTIANA,.He was seen by his PCP on 01/03/24 for low BP, postural dizziness.Slight SOB. CTA ordered on the same day which showed : 1. Chronic nonocclusive and partially calcified embolinoted within the right lower lobe segmental pulmonary arteries. 2. Occluded subsegmental branch within the posterior basilar right lower lobe pulmonary artery which is new compared to the prior study. This could represent an acute pulmonary embolus. 3. Stable 2 cm right anterior pleural-based nodule 4. Focal irregular density within the base of the right lower lobesimilar to the prior study and favors scarring. This could be due to a chronic pulmonary infarct. 5. No new focal lungconsolidations to suggest pneumonia. CTof abdomen and pelvis: 1. No acute intra-abdominal or intrapelvic abnormality 2. Unchanged iliac lymph adenopathy 3. Possible 1.2 cm renal lesion could be confirmed with a nonemergent follow- up renal ultrasound. 4. Prostamegalywith possible prostate lesion which could be correlated with serum PSA. [facility] findings [facility] 1.Pulmonary embolism. Coumadin was discontinued. Lovenox 1 mg/kg twice dailywas started. Patient was seen byoncologywhile in the hospitalfor history of malignantmelanoma and pulmonary embolismas well as the bilateral cellulitis of the lower leg 2. Cellulitis of both lower extremity. He was given Rocephin 2000 g IVx 1 dose. Patient upon discharge was givenprescription for cephalexin 500 mg4 times a day. 3.Acute kidney injuryand CKD Patient was evaluated by nephrologywhile in the hospitalhis antihypertensive medication lisinopril plushydrochlorothiazidewas temporarilydiscontinueddue to hypotension. Today, patient is complaining of: -Nauseaand vomiting. Patient reported that after hospital discharge he was started on [id number] mg 1 tablet4 times a dayfor his lower extremitycellulitis.He states thathe was not able totolerate the medicine because he is being nauseated andvomiting every time he eats or dr ink. He also complains of abdominal painalong with the nausea and vomiting. Denies fever. c/ofeeling dizzy and unstable. -abdominal pain. Generalized abdominal pain, tender to touch, movement worsen abdominal pain. -lower extremity swelling. He was given Furosemide 40 mg to take once a day to help the swelling. Patient reported that his swelling is getting worse. He now have more blisters on his lower extremities. -Lower extremity Cellulitis. Patient was discharge with Cephalexin 500 mg 4x a day. States that he takes this is small amount of food that he can tolerate but he vomits every time he put something onhis mouth. Physical Exam Vitals & Measurements HR:99(Monitored) RR:16 BP:128/60 SpO2:94% HT:172.7cm WT:121.900kg(Dosing) WT:121.9kg BMI:40.87 General: alert and oriented, looks unwell, feeling nauseous and unsteady. Eye: PERRL, EOMI, normal conjunctiva HENT: normocephalic, TMs clear, normal hearing, moist oral mucosa, no pharyngeal erythema, no sinus tenderness Neck: supple, non-tender, no lymphadenopathy, no thyromegaly Resp: bibasal rales, non-labored respirations, BS equal, symmetrical expansion CV: normal rate and rhythm, no murmur, no gallop GI: generalized tenderness to light palpation, distended, decreasebowel sounds : no CVA tenderness MS: normal ROM,decrease strength,steady gait. BOTHLOWEREXTREMITIES: Skintight, swollenwith blisters, warmto touch, erythematous,tendertotouch. swellingisup totoes. Neurologic: alert and oriented Psychiatric: appropriate mood and affect Assessment/Plan 1.Leg swelling Patient was recentlydischarge from the hospital with swelling on both legs and cellulitis. He was prescribed Lasix 40 mg once a day. Patient states that his swelling is worse. He elevates his legat home. However, he's been vomiting every time he eats or drink. Not sure if his medicine comes out too when he vomits. 2.Nausea with vomiting Zofran 4 mg ODT given today at the office. Did not get much relief after several minutes of observation. 3.Cellulitis of leg Involving both leg. Warm to touch. Patient not able to keep the medicine down due to nausea with vomiting. Discussed with patient about ER transfer. Informed him that becauseof his vomiting, he cannot get his medicine down to his stomach and into his system that's why he is getting worse. Advised to go to ER so he can have IV antibiotic. 4.Pulmonary embolism He was on Coumadin for PE, this was change during recent hospital admission due to Acute on chronicPE. Patient now taking Lovenox 2x a day. Patient agreed to go to ER today. Discussed with patient about referral to Care Management regarding some assistance when he go back home. Reviewed diagnostic scans and hospital records and previous office visits. Attestation Time spent on pre-visit plannin min Face to face time spent w/ patient:35 min Time spent documenting pertinent clinical information into the EMR:12 min Total time:52 min Problem List/Past Medical History Ongoing AA [...] biopsy and cauterization of skin| Service Date: 06/16/2022nee replacement| Service Date: olonoscopy| Service Date: 12/09/2021ngiogram [...] mg oral tablet), 1 tab, PO, bid enoxaparin(Lovenox), bid furosemide ocular lubricant(Systane) polyethylene glycol 3350(MiraLax oral powder for reconstitution), 17 g, PO, Daily, PRN pravastatin(pravastatin 20 mg oral tablet), 1 tab, PO, Daily pregabalin(Lyrica 150 mg oral capsule), 150 mg= 1 cap, PO, tid Allergies HYDROcodonerash OxyContinrash TEGretolrash gabapentinrash oxyCODONErash simvastatin- [...] due12/03/23and every 1year Due Adult COVID-19 Vaccination due01/12/24Unknown Frequency Adult Social Determinants of Health Screening due01/12/24Unknown Frequency Shingles Vaccine due01/12/24One-time only Satisfied(in the past 1 year) Satisfied Adult Influenza Vaccine on04/26/23.Satisfied by SHA Be Heather Body Mass Index on01/11/24.Satisfied by SHA Castellanos Bobbi Lipid Screening on02/15/23.Satisfied by Contributor_system, Recognition PRO Electronic Signature on File Electronically Reviewed/Signed by: Elsie Pearl MD Author Signature Dt/Tm:01/12/2024 09:21 PM Department of Family Medicine VS Patient Care team information Care Team Personnel Name: JAMARI Buchanan Tara Position: Nurse Pract - Family Med Member Role: Lifetime Relationship Address: [address] [place] [address] [place] Name: MD Encarnacion Juan Position: Physician - Family Med Member Role: Primary Care Provider Address: [address] [place] [address] [place] Name: Taty Vance Paula Position: Pharmacist Member Role: Pharmacy - Lifetime Address: [address] [address] [place] Name: Taty Gomes Brittani Position: Pharmacist Member Role: Pharmacy - Lifetime Care Team Related Persons Name: HECTOR HADDAD"
[2024-01-27] MEDS: ACETAMINOPHEN 1,000 MG/100 ML VIAL IV STA (02:16)
[2024-01-27] MEDS: SODIUM CHLORIDE 0.9% 500 ML IV SCH (02:17)
[2024-01-27] MEDS: OPTIRAY 320 100ml IV ONE (02:18)
[2024-01-27 02:21] LABS: INR 1.2 (0.9-1.1); Prothrombin Time 12.5 Seconds (9.0-12.0)
[2024-01-27 02:50] LABS: Hematocrit (blood only) 35.6 % (42.0-52.0); Hemoglobin 11.8 g/dl (14.0-18.0); Mean Corpuscular Hemoglobin 32.2 pg (25.0-34.0); Mean Corpuscular Hgb Conc 33.1 g/dL (32.0-36.0); Mean Corpuscular Volume 97.3 fL (80.0-100.0); Mean Platelet Volume 11.2 fL (9.4-12.4); Nucleated RBC # (auto) 0.04 K/uL (0.00-0.12); Nucleated RBC % (auto) 0.2 %; Platelet Count 173 K/uL (130-400); RDW Coefficient of Variation 16.2 % (11.5-14.5); RDW Standard Deviation 57.5 fL (36.4-46.3); Red Blood Count 3.66 M/uL (4.70-6.10); White Blood Count 23.52 K/ul (4.8-10.8)
[2024-01-27 03:01] LABS: Basophils # (auto) 0.03 K/uL (0.00-0.20); Basophils % (auto) 0.1 %; Immature Granulocytes # (auto) 0.24 K/uL (0.01-0.20); Lymphocytes # (auto) 6.73 K/uL (1.20-3.40); Lymphocytes % (auto) 28.6 %; Monocytes % (auto) 7.7 %; Neutrophils # (auto) 14.72 K/uL (1.40-6.50); Neutrophils % (auto) 62.6 %; Polychromasia 1+; Tear Drop Cells 1+
[2024-01-27 03:12] LABS: Albumin Globulin Ratio 1.2 (0.9-2); BUN Creatinine Ratio 37.5 (10-20); Bilirubin,Total 1.4 mg/dl (0.2-1.0); Calcium 7.5 mg/dl (8.6-10.3); Creatinine Clr Calc Pharmacy 61.1 ml/min; Est GFR (African American) 61.3 ml/min; Est GFR (Non-African American) 52.9 ml/min; Globulin 2.5 gm/dl (2.5-4.0); Potassium 4.8 mmol/L (3.5-5.1); Total Protein 5.5 gm/dl (6.0-8.3)
[2024-01-27] MEDS: fentaNYL citrate PF 100 MCG/2 ML VIAL IV PRN (03:23)
[2024-01-27 03:29] LABS: Troponin I High Sensitivity 31.5 pg/ml (0-20)
--- NOTE | 2024-01-27 04:04 | CT Scan Report ---
Exam(s): CT CHEST With Contrast IV Amt: 94 ml opti 320 EXAM: CT Chest With Intravenous Contrast CLINICAL HISTORY: Reason for exam: chest pain/swelling/ecchymosis/lovenox. TECHNIQUE: Axial computed tomography images of the chest with intravenous contrast. CTDI is 38.67 mGy and DLP is 1273.02 mGy-cm. Automated exposure control was utilized for the study. A dose lowering technique was utilized adhering to the principles of ALARA. CONTRAST: Patient received 94 ml opti 320 of IV contrast COMPARISON: PET/CT scan: 07/06/2022 FINDINGS: Diagnostic sensitivity of the exam is reduced by motion artifact A right IJ Port-A-Cath terminates in the mid SVC. Soft tissues: A massive 17.8 x 13.0 x 13.6 cm left pectoralis muscle hematoma with a fluid level seen with corresponding/surrounding left chest wall soft tissue edema and with subcutaneous fat stranding, could be a complication of an anticoagulant therapy (series 2 image 27, series 401 image 27). Lungs: Central airways are patent. Bilateral diffuse moderate bronchial wall thickening and mild dilatation. Posteriorly left lower lobe consolidative infiltrates with a small left pleural effusion. Inferiorly right basilar subpleural/parenchymal mild atelectasis/infiltrates.. No discernible mass. No pneumothorax. No significant right pleural effusion. Right posterior pleural thickening. An elevated right hemidiaphragm. Heart: Mild cardiomegaly. Increased pericardial fat pad. No significant pericardial effusion. Proximally left coronary artery calcifications. Bones/joints: Osteopenia. No acute fracture. No dislocation. Multilevel moderate degenerative spondylotic changes. Bilateral shoulder replacement. Vasculature: Atherosclerotic calcifications of the aorta.. There is a 4.7 cm thoracic ascending aortic aneurysm. An enlarged main pulmonary artery: 34 mm in diameter. Lymph nodes: Unremarkable. No enlarged lymph nodes. Other findings: . Hepatic steatosis, altered subtle nodular contour concerning for underlying chronic liver parenchymal disease. A small perihepatic ascites. A contracted gallbladder. IMPRESSION: A massive 17.8 x 13.0 x 13.6 cm left pectoralis muscle hematoma with a fluid level and with corresponding/surrounding left chest wall soft tissue edema/subcutaneous fat stranding demonstrated, most likely a complication of an anticoagulant therapy. Recommend clinical correlation. Posteriorly left lower lung lobe consolidative infiltrates with a small left pleural effusion seen. A 4.7 cm ascending aortic aneurysm. An enlarged main pulmonary artery, reflective of sequela of pulmonary arterial hypertension. . Communications: Call Doctor Active Bleeding in any site Electronically signed by: Asif Alba MD, DABR 01/27/24 04:04 AM
--- NOTE | 2024-01-27 04:18 | Emergency Department Note ---
Impression & Plan Chest pain, Hematoma of chest wall ED Provider Note ED Provider Note NAME: LIZA HADDAD AGE:78 SEX: Male : 1945 ARRIVES VIA: EMS INFORMANT: Patient ED PROVIDER(s): Romi Cobos DO CHIEF COMPLAINT: Chest pain HPI: This is a 78-year-old male who presents emergency department due to concern for left-sided chest pain. Patient states pain began prior to discharged yesterday from the hospital as he has recently been admitted for approximately 2 weeks. He states pain seem to be worsening after he was transferred to rehab. Patient states he does have a port but that is on the right side of his chest. He denies any radiation of the pain into his back, he does feel pain up into the left shoulder, no pain into the neck or jaw. He states he does have increased pain with position change or movement and the chest wall is sensitive to touch. He states he does feel slightly more short of breath and does have intermittent nausea. He denies any dizziness, abdominal pain, fevers or chills. Patient is anticoagulated due to history of PE. Patient was previously on Coumadin however had a recurrent PE and was changed to Lovenox. He did receive his nighttime injection at 2300. PAST MEDICAL HISTORY:See Below PAST SURGICAL HISTORY:See Below FAMILY HISTORY:See Below SOCIAL HISTORY:See Below HOME MEDICATIONS:See Below ALLERGIES:See Below VITALS:See Below PHYSICAL EXAMINATION: GENERAL: alert, well appearing, well nourished, no distress, non-toxic EYE EXAM: normal conjunctiva, PERRL and EOM's grossly intact OROPHARYNX: no exudate, no erythema, lips, buccal mucosa, and tongue normal and mucous membranes are moist NECK: supple, no nuchal rigidity, no adenopathy, non-tender LUNGS: Clear to auscultation. Normal chest wall mechanics, no w/r/r HEART: no murmurs, S1 normal and S2 normal ABDOMEN: abdomen soft, non-tender, normo-active bowel sounds, no masses, no rebound or guarding. BACK: Back is symmetrical on inspection and there is no deformity, no midline tenderness, no CVA tenderness. SKIN: no rashes, petechiae, orbruising UPPER EXTREMITIES: upper extremities are grossly normal. FROM, nml pulses b/l. LOWER EXTREMITIES: No pitting edema. FROM, nml pulses b/l. NEURO EXAM: Normal sensorium, cranial nerves II-XII grossly intact, normal speech, no facial droop,nogross weakness of arms, no gross weakness of legs. Gross sensation intact. No ataxia. Vital Signs: reviewed and remarkable Differential Diagnosis: acute coronary syndrome, pericarditis, pulmonary embolus, aortic dissection, pneumonia, pneumothorax, musculoskeletal pain, shingles, GERD, GI bleed, as well as others were considered MEDICAL DECISION MAKING: This is a 78-year-old male presents emergency department due to concern for worsening chest pain and chest wall swelling. Patient just discharged from our facility several hours ago. He complained of worsening pain to staff at rehab and was eventually returned here to the emergency department. He was afebrile and vital signs stable. Obvious abnormality noted on examination of chest wall with obvious edema and evolving ecchymosis noted to the left upper chest wall. Labs drawn and sent, IV established, EKG performed at bedside interpreted by me. [id number] BMP drawn and sent initially as well and compared to labs from this morning. Patient sent urgently for CT chest due to concern for expanding hematoma and possible vascular involvement as patient anticoagulated. Patient's labs otherwise stable compared to prior. No other acute intrathoracic abnormality noted on CT. A large hematoma with active extrav per Dr. Gerber noted on CT chest. After discussion with Dr. Corado regarding patient's history of anticoagulation, she advised giving the patient IV protamine which was ordered and I did contact the lab to discuss this. Patient had significant pain and was given IV Tylenol and IV fentanyl for this and an ice pack applied. He was started on gentle IV fluid hydration additionally. I did contact [facility] and discussed the case with on-call interventional radiology who was able to review the CT. They feel in light of patient's history at this is unlikely to be an arterial bleed and is thus not amenable to any IR procedure. They recommend additional compressive weight such as a sandbag placed over the chest. They recommend repeat CT 8 hours after the first to monitor for any changes and they will review this also. If there are no changes in the patient's condition, no further evidence of expanding chest wall hematoma, patient does not require transfer and could be monitored and observed here. Patient rechecked several times overnight. Patient was noted to have leukocytosis which was not present yesterday. In light of this and recent hospitalization, a blood culture, procalcitonin, and lactic acid added and patient given IV cefepime. MRSA swab sent additionally given recent hospitalization. On review of EMR patient was recently given steroids, however given WBC's had been normal within the last 24 hours, I felt it was important to cover for occult evolving infection. Expanding hematoma seem to stabilize and there were no further changes. Patient was changed from IV fentanyl to IV morphine for additional pain control while maintained on IV fluids. Repeat H&H drawn again in the morning, Hgb was 1 g lower than the first level obtained. Patient sent for repeat chest CT and signed out to Dr. Macdonald pending radiology read. Consultation(s): 0415: Discussed with Dr. Corado. Recommends protamine 50 mg and transfer for further evaluation. 0600: Discussed with [facility] Blanca Logan (IR) and Jone (family medicine). Dr. Logan was able to reveal the at bedtime CT images. He feels an arterial bleed is less likely and recommends direct pressure, continued monitoring, and a CT chest without contrast 8 hours from the first CT. If the area continues to expand, or patient's condition worsens, to please recontact for additional evaluation and likely transfer. Does not feel patient needs urgently transferred at this time as no intervention is necessary. ER Treatment Provided: See below Diagnostics Interpreted By Me: -ECG: Normal sinus at 61, normal axis, normal intervals, inverted T waves noted in leads II, 3, aVF, V4 through V6; this is unchanged compared to prior from January 23, 2024 -Cardiac Monitoring: An order was placed for continuous cardiac monitoring. The monitor shows a rate of 68 with normal sinus rhythm. -Laboratory studies: As stated above and show below. -Imaging studies: CT chest: large chest wall hematoma, no pna, hemothorax, no thoracic aortic aneurysm Triage Nursing Note Reviewed Prior/Outside Records Reviewed -progress note from Dr. Stewart Critical Care: Critical care of 65 min performed to assess and manage high likelihood of life- threatening chest wall hematoma with active bleeding, involving labs and imaging performed with assessment to evaluate chest pain diagnosis with frequent reassessment. This time includes bedside time, treatment discussions with patient/family/consultants, documentation time and excludes procedure time. Past Med/Surg History Problem List (Updated 01/27/24 @ 13:57 by Mynor Jaeger PA-C) Dysuria Encephalitis Hematoma of chest wall (Acute) Chest pain (Acute) Metabolic encephalopathy Pulmonary embolism on long-term anticoagulation therapy Demand ischemia Atrial fibrillation and flutter Altered mental status Acute kidney injury superimposed on CKD Complicated UTI (urinary tract infection) Severe sepsis Hypovolemic shock Vomiting (Acute) Hypomagnesemia (Acute) Bilateral cellulitis of lower leg (Acute) Bilateral leg edema (Acute) Prostate nodule ELISABETH (acute kidney injury) Hypomagnesemia Bilateral cellulitis of lower leg (Acute) Leg swelling (Acute) ALVAREZ (dyspnea on exertion) (Acute) Pulmonary embolism (Acute) Cellulitis Incontinence Port-A-Cath in place (01/24/23) Infusaport Insertion to right internal jugular with Fluoroscopy(Right) - Vamsi Tolbert DO Allergic reaction (Acute) Pulmonary embolism Trigeminal neuralgia (Acute) Trigeminal neuralgia (Acute) Vitamin D deficiency (Acute) Hypertension (Acute) Chronic kidney disease, stage 3 (Acute) Vitamin D deficiency (Chronic) Prostate cancer screening Thoracic ascending aortic aneurysm Gastritis Insomnia Encounter for pre-operative examination Primary osteoarthritis, left shoulder Low back pain with sciatica (Acute) History of pulmonary embolism 2015, unknown etiology Constipated senior living (current) use of anticoagulants (Chronic) History of malignant melanoma Left side of neck Aortic aneurysm CT 12/2022- "Aneurysmal dilatation of the ascending thoracic aorta measuring up to 4.6 cm in diameter. This is similar to the prior studies." Follows with Dr. Marshall Hypercholesterolemia (Acute) Stone in kidney Hx Hypertension (Chronic) Chronic kidney disease, stage III (moderate) (Chronic) Trigeminal neuralgia (Acute) s/p radiated nerve, No issues x several years Medical History COVID-19 Osteoarthritis Surgical History History of left shoulder replacement History of right shoulder replacement History of total left knee replacement (TKR) History of total right knee replacement (TKR) with revision History of colonoscopy History of inguinal hernia repair History of cancer surgery Left side of neck resection + lymph node removal History of tooth extraction History of tonsillectomy and adenoidectomy History of sinus surgery History of cystoscopy History of cataract surgery bilateral History of back surgery L4-L5 with screws Family History Family/Other Diabetes Heart disease Nephrolithiasis Other No family history of adverse response to anesthesia Social History Smoking Status: Never smoker Second Hand Exposure: No; Do You Dip or Chew Tobacco: No; Tobacco Cessation Education Requested by Patient: No Hx Alcohol Use: No Hx Substance Use: No Preferred Language: Thai Communication Ability: Effective Motor Builder Winder Required: No Beliefs That Will Affect Care: None Current Living Situation: Spouse current occupational status: retired Other Information That Helps Us Care for You: No Feels Safe at Home: Yes Safety Concerns: Feels Safe At This Time Seatbelt Use: always Assistive Devices: Cane, Walker and Wheelchair Allergies Allergies Allergy/AdvReac Type Severity Reaction Status Date / Time gabapentin Allergy Intermediate Rash Verified 01/11/24 14:50 tramadol Allergy Intermediate Rash and Verified 01/11/24 14:50 itchiness hydrocodone Allergy Mild itchy Verified 01/11/24 14:50 oxycodone Allergy Mild itchy Verified 01/11/24 14:50 carbamazepine Allergy Unknown Unknown Verified 01/11/24 14:50 ciprofloxacin Allergy Unknown Unknown Verified 01/11/24 14:50 Home Meds Home Medications Medication Instructions Recorded Confirmed acetaminophen 650 mg 650 mg PO Q4H PRN Pain 01/27/24 01/27/24 tablet,extended release allopurinol 100 mg tablet 100 mg PO DAILY 01/27/24 01/27/24 Previous Rx's Medication Instructions Recorded enoxaparin 120 mg/0.8 mL 120 mg (0.8 mL) subcut Q12H 30 01/04/24 subcutaneous syringe (Lovenox) days #48 mL metoprolol tartrate 25 mg tablet 25 mg PO BID #60 tabs 01/26/24 Results & Data (ED) Vital Signs Vital Signs - 24 hr 01/27/24 05:57 01/27/24 06:42 01/27/24 07:09 Temperature Temperature Source Pulse Rate 64 66 67 Pulse Rate [Apical] Pulse Rate from SpO2 Sensor Respiratory Rate 13 15 14 Respiratory Effort / Characteristics Respiratory Depth Respiratory Pattern Blood Pressure 115/66 109/63 126/72 Blood Pressure [Right Arm] Blood Pressure Mean 82 78 90 Blood Pressure Mean [Right Arm] Blood Pressure Position [Right Arm] Pulse Oximetry 99 96 95 Oxygen Delivery Method Room Air Oxygen Flow Rate 01/27/24 07:30 01/27/24 07:39 01/27/24 07:40 Temperature Temperature Source Pulse Rate 66 68 Pulse Rate [Apical] Pulse Rate from SpO2 Sensor Respiratory Rate 16 14 Respiratory Effort / Characteristics Respiratory Depth Respiratory Pattern Blood Pressure 114/70 107/65 Blood Pressure [Right Arm] Blood Pressure Mean 75 92 Blood Pressure Mean [Right Arm] Blood Pressure Position [Right Arm] Pulse Oximetry 96 Oxygen Delivery Method Oxygen Flow Rate 01/27/24 08:50 01/27/24 09:10 01/27/24 09:20 Temperature Temperature Source Pulse Rate 92 H 78 70 Pulse Rate [Apical] Pulse Rate from SpO2 Sensor Respiratory Rate 16 18 18 Respiratory Effort / Characteristics Respiratory Depth Respiratory Pattern Blood Pressure 103/73 88/69 L 102/61 Blood Pressure [Right Arm] Blood Pressure Mean 87 77 77 Blood Pressure Mean [Right Arm] Blood Pressure Position [Right Arm] Pulse Oximetry 95 94 95 Oxygen Delivery Method Oxygen Flow Rate 01/27/24 09:30 01/27/24 09:32 01/27/24 09:33 Temperature Temperature Source Pulse Rate 75 68 75 Pulse Rate [Apical] Pulse Rate from SpO2 Sensor Respiratory Rate 16 18 20 Respiratory Effort / Characteristics Respiratory Depth Respiratory Pattern Blood Pressure 80/66 L 99/63 L Blood Pressure [Right Arm] Blood Pressure Mean 71 83 Blood Pressure Mean [Right Arm] Blood Pressure Position [Right Arm] Pulse Oximetry 96 Oxygen Delivery Method Oxygen Flow Rate 01/27/24 09:39 01/27/24 09:39 01/27/24 09:50 Temperature Temperature Source Pulse Rate 75 70 70 Pulse Rate [Apical] Pulse Rate from SpO2 Sensor Respiratory Rate 20 18 14 Respiratory Effort / Characteristics Respiratory Depth Respiratory Pattern Blood Pressure 114/65 107/65 Blood Pressure [Right Arm] Blood Pressure Mean 90 87 Blood Pressure Mean [Right Arm] Blood Pressure Position [Right Arm] Pulse Oximetry 98 95 Oxygen Delivery Method Oxygen Flow Rate 01/27/24 10:25 01/27/24 10:42 01/27/24 10:50 Temperature Temperature Source Pulse Rate 85 72 Pulse Rate [Apical] Pulse Rate from SpO2 Sensor Respiratory Rate 12 18 Respiratory Effort / Characteristics Respiratory Depth Respiratory Pattern Blood Pressure 114/73 124/67 116/70 Blood Pressure [Right Arm] Blood Pressure Mean 96 86 87 Blood Pressure Mean [Right Arm] Blood Pressure Position [Right Arm] Pulse Oximetry Oxygen Delivery Method Oxygen Flow Rate 01/27/24 10:54 01/27/24 11:00 01/27/24 11:09 Temperature 36.7 C Temperature Source Oral Pulse Rate 71 72 Pulse Rate [Apical] 69 Pulse Rate from SpO2 Sensor Respiratory Rate 18 25 H 12 Respiratory Effort / Characteristics Non-Labored Spontaneous Respiratory Depth Normal Respiratory Pattern Regular Blood Pressure 116/70 111/65 Blood Pressure [Right Arm] 111/65 Blood Pressure Mean 85 93 Blood Pressure Mean [Right Arm] 80 Blood Pressure Position [Right Arm] Lying Pulse Oximetry 96 Oxygen Delivery Method Nasal Cannula Oxygen Flow Rate 2 01/27/24 11:30 01/27/24 12:00 01/27/24 12:30 Temperature Temperature Source Pulse Rate 68 68 68 Pulse Rate [Apical] Pulse Rate from SpO2 Sensor 69 69 68 Respiratory Rate 10 L 12 15 Respiratory Effort / Characteristics Respiratory Depth Respiratory Pattern Blood Pressure 114/66 130/93 111/69 Blood Pressure [Right Arm] Blood Pressure Mean 91 96 89 Blood Pressure Mean [Right Arm] Blood Pressure Position [Right Arm] Pulse Oximetry 97 98 98 Oxygen Delivery Method Nasal Cannula Nasal Cannula Oxygen Flow Rate 2 2 01/27/24 12:48 01/27/24 13:00 01/27/24 13:00 Temperature Temperature Source Pulse Rate 75 86 Pulse Rate [Apical] Pulse Rate from SpO2 Sensor 74 86 Respiratory Rate 18 12 Respiratory Effort / Characteristics Respiratory Depth Respiratory Pattern Blood Pressure 108/72 108/72 Blood Pressure [Right Arm] Blood Pressure Mean 88 88 Blood Pressure Mean [Right Arm] Blood Pressure Position [Right Arm] Pulse Oximetry 97 96 Oxygen Delivery Method Nasal Cannula Oxygen Flow Rate 1 Laboratory Data 01/27/24 22:25 01/27/24 01:50 Lab Results 01/27/24 01/27/24 01/27/24 Range/Units 01:50 03:27 05:01 WBC 23.52 H D (4.8-10.8) K/ul RBC 3.66 L (4.70-6.10) M/uL Hgb 11.8 L (14.0-18.0) g/dl Hct 35.6 L (42.0-52.0) % MCV 97.3 (80.0-100.0) fL MCH 32.2 (25.0-34.0) pg MCHC 33.1 (32.0-36.0) g/dL RDW Std Deviation 57.5 H (36.4-46.3) fL RDW Coeff of Lisbeth 16.2 H (11.5-14.5) % Plt Count 173 (130-400) K/uL MPV 11.2 (9.4-12.4) fL Immature Gran % (Auto) 1.0 % Neut % (Auto) 62.6 % Lymph % (Auto) 28.6 % [place] % (Auto) 7.7 % Eos % (Auto) 0.0 % Baso % (Auto) 0.1 % Neut # (Auto) 14.72 H (1.40-6.50) K/uL Lymph # (Auto) 6.73 H (1.20-3.40) K/uL [place] # (Auto) 1.80 H (0.11-0.59) K/uL Eos # (Auto) 0.00 (0.00-0.50) K/uL Baso # (Auto) 0.03 (0.00-0.20) K/uL Immature Gran # (Auto) 0.24 H (0.01-0.20) K/uL Absolute Nucleated RBC 0.04 (0.00-0.12) K/uL Nucleated RBC % (auto) 0.2 % Polychromasia 1+ Tear Drop Cells 1+ PT 12.5 H (9.0-12.0) Seconds INR 1.2 H (0.9-1.1) Sodium 138 (136-145) mmol/L Potassium 4.8 (3.5-5.1) mmol/L Chloride 107 (98-107) mmol/L Carbon Dioxide 24 (21-32) mmol/L Anion Gap 7 (3-11) BUN 48 H (6-23) mg/dl Creatinine 1.28 (0.6-1.4) mg/dl Est Cr Clr Drug Dosing 61.1 ml/min Est GFR ( Amer) 61.3 ml/min Est GFR (Non-Af Amer) 52.9 ml/min BUN/Creatinine Ratio 37.5 H (10-20) Glucose 145 H (70-99(Fasting)) mg/dl Lactate 1.8 (0.4-2.0) mmol/L Calcium 7.5 L (8.6-10.3) mg/dl Magnesium 2.0 (1.7-2.4) mg/dl Total Bilirubin 1.4 H (0.2-1.0) mg/dl AST 150 H (13-39) U/L ALT 155 H (7-52) U/L Alkaline Phosphatase 68 (34-104) U/L Troponin I High Sens 31.5 H (0-20) pg/ml Total Protein 5.5 L (6.0-8.3) gm/dl Albumin 3.0 L (3.4-5.0) gm/dl Globulin 2.5 (2.5-4.0) gm/dl Albumin/Globulin Ratio 1.2 (0.9-2) Lipase 47 (11-82) U/L Procalcitonin 0.22 (0-0.5) ng/ml Nasal Screen MRSA (PCR) Negative (Negative) Blood Type Antibody Screen Crossmatch 01/27/24 01/27/24 Range/Units 09:30 12:44 WBC (4.8-10.8) K/ul RBC (4.70-6.10) M/uL Hgb 10.7 L (14.0-18.0) g/dl Hct 33.3 L (42.0-52.0) % MCV (80.0-100.0) fL MCH (25.0-34.0) pg MCHC (32.0-36.0) g/dL RDW Std Deviation (36.4-46.3) fL RDW Coeff of Lisbeth (11.5-14.5) % Plt Count (130-400) K/uL MPV (9.4-12.4) fL Immature Gran % (Auto) % Neut % (Auto) % Lymph % (Auto) % [place] % (Auto) % Eos % (Auto) % Baso % (Auto) % Neut # (Auto) (1.40-6.50) K/uL Lymph # (Auto) (1.20-3.40) K/uL [place] # (Auto) (0.11-0.59) K/uL Eos # (Auto) (0.00-0.50) K/uL Baso # (Auto) (0.00-0.20) K/uL Immature Gran # (Auto) (0.01-0.20) K/uL Absolute Nucleated RBC (0.00-0.12) K/uL Nucleated RBC % (auto) % Polychromasia Tear Drop Cells PT (9.0-12.0) Seconds INR (0.9-1.1) Sodium (136-145) mmol/L Potassium (3.5-5.1) mmol/L Chloride (98-107) mmol/L Carbon Dioxide (21-32) mmol/L Anion Gap (3-11) BUN (6-23) mg/dl Creatinine (0.6-1.4) mg/dl Est Cr Clr Drug Dosing ml/min Est GFR ( Amer) ml/min Est GFR (Non-Af Amer) ml/min BUN/Creatinine Ratio (10-20) Glucose (70-99(Fasting)) mg/dl Lactate (0.4-2.0) mmol/L Calcium (8.6-10.3) mg/dl Magnesium (1.7-2.4) mg/dl Total Bilirubin (0.2-1.0) mg/dl AST (13-39) U/L ALT (7-52) U/L Alkaline Phosphatase (34-104) U/L Troponin I High Sens (0-20) pg/ml Total Protein (6.0-8.3) gm/dl Albumin (3.4-5.0) gm/dl Globulin (2.5-4.0) gm/dl Albumin/Globulin Ratio (0.9-2) Lipase (11-82) U/L Procalcitonin (0-0.5) ng/ml Nasal Screen MRSA (PCR) (Negative) Blood Type A Positive Antibody Screen NEGATIVE Crossmatch See Detail Administered Medications Acetaminophen (Acetaminophen 325 Mg Tab) 650 mg PO Q6H KELSY Stop: 02/26/24 21:59 Last Admin: 01/28/24 03:18 Dose: 650 mg Documented By: Admin: 01/27/24 23:53 Dose: 650 mg Documented By: KENJI Prednisone (Prednisone 50 Mg Tab) 50 mg PO DAILY KELSY Stop: 02/03/24 14:14 Last Admin: 01/27/24 15:09 Dose: 50 mg Documented By: CELESTE Discontinued Medications Fentanyl Citrate (Fentanyl Citrate Pf 100 Mcg/2 Ml Vial) 50 mcg IV Q15M PRN PRN Reason: Pain Stop: 02/10/24 03:01 Last Admin: 01/27/24 04:58 Dose: 50 mcg Documented By: Admin: 01/27/24 03:23 Dose: 50 mcg Documented By: RHINA Sodium Chloride (Nss) 500 mls @ 80 mls/hr IV .Q6H15M KELSY Stop: 02/26/24 01:44 Last Infusion: 01/27/24 19:39 Dose: Infused Documented By: Admin: 01/27/24 18:25 Dose: 80 mls/hr Documented By: Infusion: 01/27/24 17:38 Dose: Infused Documented By: Admin: 01/27/24 15:33 Dose: 80 mls/hr Documented By: Infusion: 01/27/24 15:33 Dose: Infused Documented By: Infusion: 01/27/24 15:09 Dose: 80 mls/hr Documented By: Admin: 01/27/24 07:54 Dose: 80 mls/hr Documented By: MMZofia Infusion: 01/27/24 07:54 Dose: Infused Documented By: Admin: 01/27/24 02:17 Dose: 80 mls/hr Documented By: RHINA Acetaminophen (Ofirmev) 1,000 mg in 100 mls @ 400 mls/hr IV NOW STA Stop: 01/27/24 01:57 Last Infusion: 01/27/24 02:40 Dose: Infused Documented By: Admin: 01/27/24 02:16 Dose: 400 mls/hr Documented By: RHINA Cefepime HCl (Maxipime) 2,000 mg in 20 mls @ 5 mls/min IV NOW STA; Protocol Stop: 01/27/24 02:59 Last Admin: 01/27/24 04:33 Dose: 5 mls/min Documented By: RHINA Protamine Sulfate 50 mg/ (Dextrose) 55 mls @ 300 mls/hr IV ONE ONE Stop: 01/27/24 04:22 Last Infusion: 01/27/24 05:03 Dose: Infused Documented By: Admin: 01/27/24 04:34 Dose: 300 mls/hr Documented By: RHINA Pantoprazole Sodium 40 mg/ (Syringe) 10 mls @ 5 mls/min IV NOW ONE Stop: 01/27/24 13:27 Last Admin: 01/27/24 15:34 Dose: 5 mls/min Documented By: CELESTE Ioversol (Optiray 320 100ml) 94 ml IV ONCE ONE Stop: 01/27/24 02:19 Last Admin: 01/27/24 02:18 Dose: 94 ml Documented By: ABDIAS Miscellaneous (Stat Iv/Im) 1 each N/A NOW STA Stop: 01/27/24 04:14 Last Admin: 01/27/24 07:11 Dose: Not Given Documented By: USMAN Morphine Sulfate (Morphine Sulfate 4 Mg/Ml 1 Ml Carp\\Vial) 4 mg IV NOW STA Stop: 01/27/24 06:24 Last Admin: 01/27/24 06:26 Dose: 4 mg Documented By: RHINA Morphine Sulfate (Morphine Sulfate 4 Mg/Ml 1 Ml Carp\\Vial) 4 mg IV NOW STA Stop: 01/27/24 07:59 Last Admin: 01/27/24 08:02 Dose: 4 mg Documented By: USMAN Morphine Sulfate (Morphine Sulfate 2 Mg/Ml Carp) 2 mg IV NOW STA Stop: 01/27/24 16:03 Last Admin: 01/27/24 17:46 Dose: 2 mg Documented By: AML Imaging Data Radiologist's Impression: Chest CT 01/27/24 01:41 CR Exam(s): CT CHEST With Contrast IV Amt: 94 ml opti 320 EXAM: CT Chest With Intravenous Contrast CLINICAL HISTORY: Reason for exam: chest pain/swelling/ecchymosis/lovenox. TECHNIQUE: Axial computed tomography images of the chest with intravenous contrast. CTDI is 38.67 mGy and DLP is 1273.02 mGy-cm. Automated exposure control was utilized for the study. A dose lowering technique was utilized adhering to the principles of ALARA. CONTRAST: Patient received 94 ml opti 320 of IV contrast COMPARISON: PET/CT scan: 07/06/2022 FINDINGS: Diagnostic sensitivity of the exam is reduced by motion artifact A right IJ Port-A-Cath terminates in the mid SVC. Soft tissues: A massive 17.8 x 13.0 x 13.6 cm left pectoralis muscle hematoma with a fluid level seen with corresponding/surrounding left chest wall soft tissue edema and with subcutaneous fat stranding, could be a complication of an anticoagulant therapy (series 2 image 27, series 401 image 27). Lungs: Central airways are patent. Bilateral diffuse moderate bronchial wall thickening and mild dilatation. Posteriorly left lower lobe consolidative infiltrates with a small left pleural effusion. Inferiorly right basilar subpleural/parenchymal mild atelectasis/infiltrates.. No discernible mass. No pneumothorax. No significant right pleural effusion. Right posterior pleural thickening. An elevated right hemidiaphragm. Heart: Mild cardiomegaly. Increased pericardial fat pad. No significant pericardial effusion. Proximally left coronary artery calcifications. Bones/joints: Osteopenia. No acute fracture. No dislocation. Multilevel moderate degenerative spondylotic changes. Bilateral shoulder replacement. Vasculature: Atherosclerotic calcifications of the aorta.. There is a 4.7 cm thoracic ascending aortic aneurysm. An enlarged main pulmonary artery: 34 mm in diameter. Lymph nodes: Unremarkable. No enlarged lymph nodes. Other findings: . Hepatic steatosis, altered subtle nodular contour concerning for underlying chronic liver parenchymal disease. A small perihepatic ascites. A contracted gallbladder. IMPRESSION: A massive 17.8 x 13.0 x 13.6 cm left pectoralis muscle hematoma with a fluid level and with corresponding/surrounding left chest wall soft tissue edema/subcutaneous fat stranding demonstrated, most likely a complication of an anticoagulant therapy. Recommend clinical correlation. Posteriorly left lower lung lobe consolidative infiltrates with a small left pleural effusion seen. A 4.7 cm ascending aortic aneurysm. An enlarged main pulmonary artery, reflective of sequela of pulmonary arterial hypertension. . Communications: Call Doctor Active Bleeding in any site Electronically signed by: Asif Alba MD, CALOS 01/27/24 04:04 AM Discharge Plan Visit Data Chief Complaint: Chest Pain Stated Complaint: Sharp Chest Pain, Swelling in Chest ED Provider: Dio Macdonald Discharge Problem: Chest pain, Hematoma of chest wall Patient Disposition: Admitted As Inpatient Discharge Instructions Interventions: ED Discharge Assessment Last Done: 01/27/24 17:26
[2024-01-27] MEDS: CEFEPIME 2,000 MG/20 ML VIAL IV STA (04:33)
[2024-01-27] MEDS: PROTAMINE SULFATE 50 MG in DEXTROSE 5% 50 ML IV ONE (04:34)
[2024-01-27] MEDS: MoRPHine SULFATE 4 MG/ML 1 ML CARP\\VIAL IV STA ×2 (06:26→08:02)
[2024-01-27] MEDS: STAT IV/IM STA (07:11)
[2024-01-27 09:48] LABS: Hematocrit (blood only) 33.3 % (42.0-52.0); Hemoglobin 10.7 g/dl (14.0-18.0)
--- NOTE | 2024-01-27 10:48 | Emergency Department Note ---
ED Visit Note This patient was signed to me at shift change by Dr. Cobos. We were awaiting the repeat CT. This patient has a large hematoma in his left pectoral muscle. She did given protamine as he had been on Lovenox there is been no trauma I went back and checked the patient and he was resting comfortably is a little discomfort there Dr. Cobos does not think it is visually expanded beyond earlier. The patient denies numbness weakness in the arm no no trouble breathing. Dr. Cobos had talked to her she thoracic and IR and they both felt that if this follow-up CT was not significant change then he could stay here. They did not find anything that they thought would be amenable to surgery or IR. The CAT scan was obtained and did show a slight change in the hematoma it was now and was slightly bigger. I did call back to [facility] and talk to Dr. Oliver, the interventional radiologist who is familiar with the case, I reviewed the CAT scan findings. He feels the patient does not need to go to [facility] and does not feel they have any thing they would offer him besides just observation. He did recommend a pressure dressing which I told the nurse to put on. We will keep him here for observation and monitoring. He is in no distress. he has no respiratory distress and his blood pressure remained stable. I discussed case at length with Dr. Farah and the patient will be admitted/observed for these measures .
--- NOTE | 2024-01-27 11:55 | CT Scan Report ---
CT SCAN OF THE CHEST WITHOUT IV CONTRAST CLINICAL HISTORY: Chest wall hematoma. COMPARISON STUDY: Prior chest CT scans, most recently performed earlier the same day 01/27/2024. TECHNIQUE: CT scan of the thorax was performed from the thoracic inlet to the upper abdomen. Images are reviewed in the axial, sagittal, and coronal planes. IV contrast was not administered for this ex amination as per the referring clinician. A dose lowering technique was utilized adhering to the [facility] [place]. CT DOSE: 1068.51 mGy.cm FINDINGS: Thyroid: Imaged portions of the thyroid gland are normal in size and attenuation. Thoracic aorta: There is atherosclerotic calcification of the thoracic aorta there there is aneurysma l dilatation of the ascending thoracic aorta which measures up to 4.8 cm. The remainder of the thorac ic aorta is normal in caliber, and the arch demonstrates bovine variant anatomy. Heart: The heart is top normal in size and without pericardial effusion. The coronary arteries are de nsely calcified. Lungs and pleural spaces: Evaluation of the lung parenchyma is degraded by motion artifact. There are small left and trace right pleural effusions with dependent consolidation. A 4.3 x 1.4 x 2.3 cm pleu ral-based lesion in the anterior right lung is again seen on image #163. This is been present dating back to 2014. There are scattered calcified granulomas. Mediastinum: There are calcifications within the mediastinal lymph nodes. No pathologically enlarged nodes are identified. Siri: Not well assessed without IV contrast. Axillae: There is no axillary lymphadenopathy. Upper abdomen: The liver is cirrhotic in morphology and heterogeneous attenuation. There is nodularit y of the hepatic surface contour. Hyperdensity within the gallbladder lumen may represent vicariously excreted contrast. There is trace perihepatic and perisplenic ascites. Skeletal structures: The skeletal structures are osteopenic. No lytic or blastic bony lesions are see n. Bilateral shoulder arthroplasties are in place. Degenerative changes and kyphoscoliosis is seen in the spine. Soft tissues: Again seen is a large hematoma within the left anterior chest wall centered in the pect oralis muscle. There is surrounding infiltration. This contains a large hematocrit level and extends from above the thoracic inlet to the inferior chest wall. The collection has increased in size from p revious, measuring approximately 21 x 11 x 17.5 cm (previously measuring up to 18.5 cm). IMPRESSION: 1. Again seen is a large hematoma in the left anterior chest wall centered in the pectoralis muscle. There is surrounding edema/infiltration within the left chest wall. The hematoma contents a hematocri t level and has increased in size from today's earlier examination. Active extravasation was shown on the prior contrast-enhanced study. 2. Small left and trace right pleural effusions with dependent consolidation. 3. Advanced coronary artery atherosclerosis. 4. Cirrhotic liver morphology and small volume upper abdominal ascites. 5. A pleural-based lesion in the anterior right lung has been present dating back to 2014. 6. Again seen is aneurysmal dilatation of the ascending thoracic aorta which measures up to 4.8 cm di ameter. 7. Additional findings as above. ACT 112: Negative or not required by law. Electronically signed by: Urbano France M.D. 01/27/2024 11:53 AM
[2024-01-27] MEDS ORDERED: SODIUM CHLORIDE 0.9% 250 ML IV PRN (12:37)
--- NOTE | 2024-01-27 12:46 | History & Physical Report ---
Date of Service January 27, 2024 Assessment & Plan (1) Hematoma of chest wall: Plan: Admit to the PCU on telemetry and pulse oximetry Currently hemodynamically stable nontoxic-appearing Presented [facility] this morning due to progressive left-sided chest/shoulder pain and swelling Noted to have a large hematoma on the left anterior chest wall centered in the pectoralis muscle Patient was on Lovenox to failed warfarin therapy recently diagnosed PE's Received 50 mg protamine sulfate in the ED Multiple discussions were held between the ED and [facility], at this time interventional radiology the patient is stable and can stay at our facility with ongoing monitoring with pressure dressing application Will have nursing staff place pressure dressing and have consulted general surgery to follow while admitted Continue to hold anticoagulation Blood consent was obtained at time of admission along with type/screen, type/cross, and 2 units of PRBC's to be held for now Monitor CBC every 6 hours Will hold further repeat imaging at this time unless patient clinically declines or hemoglobin significantly drops and patient requires transfusion Heart healthy diet with 2 g sodium and 1800 mL fluid restriction Bilateral SCDs for DVT prophylaxis (2) Pulmonary embolism on long-term anticoagulation therapy: Plan: Patient was on Lovenox due to failed warfarin therapy for chronic nonocclusive and partially calcified emboli within the right lower lobe segmental pulmonary arteries and occluded subsegmental branch within the posterior basal right lower lobe pulmonary artery which was noted to be new on CTA of the chest 01/03/2024 Will need to hold anticoagulation at this time with large left chest hematoma Continue to monitor on telemetry and pulse oximetry ordered Patient will likely need IVC filter placement once stable from current hematoma (3) Encephalitis: Plan: 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 this past month Patient is confirmed that he is back to his normal baseline mental status after being started on systemic steroids Will continue current prednisone taper at 50 mg daily with 10 mg drop every 5 days Prednisone should be reduced to 40 mg on 01/29/2024 Will start daily pantoprazole for stress ulcer prophylaxis (4) Dysuria: Plan: Patient reported dysuria earlier this morning Will obtain UA with reflex culture if warranted and start antibiotics if UA is consistent with UTI (5) Atrial fibrillation and flutter: Plan: Currently in rate controlled sinus rhythm Holding anticoagulation with hematoma Will continue daily metoprolol succinate Plan The patient was discussed with Dr. Farah at the time of the admission History of Present Illness Chief Complaint: Left shoulder pain/swelling Primary Care Provider: Stef Encarnacion MD Tio is a 78-year-old male with a past medical history significant for pulmonary embolism (failed warfarin therapy, recently on Lovenox), stage III melanoma started on pembrolizumab 01/12/2023, atrial fibrillation, stage III CKD, recently prolonged admission from 01/11/2024 to 01/26/2024 for metabolic encephalopathy thought to be due to checkpoint inhibitor encephalitis along with septic shock from lower extremity cellulitis who presented to [facility] on 01/27/2024 due to concerns for chest pain and left-sided chest wall swelling. He initially remained stable while in the ED but later developed hypotension with blood pressure as low as 80/66. Labs were significant for leukocytosis of 23 with neutrophil predominance of 14, hemoglobin of 11.8, BUN of 48, AST of 150, ALT of 155, total bili of 1.4, initial high-sensitivity troponin of 31, and COVID-[address] of the chest with IV contrast noted a mass of 17.8 x 13 x 13.6 cm left pectoralis muscle hematoma with a fluid level and with corresponding/surrounding left chest wall soft tissue edema/subcutaneous fat stranding demonstrated, most likely a complication and anticoagulant therapy. Posteriorly left lower lung lobe consolidative infiltrates with a small left pleural effusion seen. Patient was initially a dose of cefepime 1 g IV Tylenol, 50 mg protamine sulfate, 50 mcg IV fentanyl, and 750 mL NSS. ED spoke with interventional radiology at [facility] who recommended applying pressure with repeat CT chest in 8 hours. Patient's blood pressure stabilized during this time with hemoglobin dropping from 11.8 on arrival to 10.7. Repeat CT of the chest without IV contrast was read as "again seen is a large hematoma in the left anterior chest wall centered in the pectoralis muscle. There is surrounding edema/infiltration within the left chest wall. Hematoma contents hematocrit level and has increased in size from today's earlier examination. Active extravasation was shown on the prior contrast-enhanced study. Small left and trace right pleural effusions with dependent consolidation. Advanced coronary artery atherosclerosis. Cirrhotic liver morphology and small volume upper abdominal ascites. A pleural-based lesion in the anterior right lung has been present dating back to 2014. Again seen is aneurysmal dilation of the ascending thoracic aorta which measures up to 4.8 cm diameter". The ED again spoke to interventional radiology at [facility] who felt as though the patient was experiencing a venous bleed rather than arterial and could remain in her facility with ongoing monitoring and application of pressure bandaging. Patient was lying in bed in no acute distress at the time of exam with his sitting bedside, history is obtained from both. Patient's confirms that the patient is back to his normal mental status since being started on oral steroids during his last admission. The patient states that he started to develop minor left shoulder discomfort prior to discharge on 01/26/2024. This continued to progress while at [facility] along with left shoulder swelling. Pain is currently controlled and he denies feeling short of breath. No recent fever, chills, cough, nausea/vomiting, abdominal pain, hematuria, melena, diarrhea, recent trauma. When asked, he did experience some dysuria earlier this morning. We discussed CODE STATUS, and after having a long and difficult admission recently the patient and his agree that he wishes to be a DNR/DNI at this time moving forward. He would want his to make medical decisions for him if he cannot make them himself Please refer to Dr. Farah's attestation for any changes to the treatment plan Allergies Allergy/AdvReac Type Severity Reaction Status Date / Time gabapentin Allergy Intermediate Rash Verified 01/11/24 14:50 tramadol Allergy Intermediate Rash and Verified 01/11/24 14:50 itchiness hydrocodone Allergy Mild itchy Verified 01/11/24 14:50 oxycodone Allergy Mild itchy Verified 01/11/24 14:50 carbamazepine Allergy Unknown Unknown Verified 01/11/24 14:50 ciprofloxacin Allergy Unknown Unknown Verified 01/11/24 14:50 Home Medications Medication Instructions Recorded Confirmed Type acetaminophen 650 mg 650 mg PO Q4H PRN Pain 01/27/24 01/27/24 History tablet,extended release allopurinol 100 mg tablet 100 mg PO DAILY 01/27/24 01/27/24 History enoxaparin 40 mg/0.4 mL 40 mg (0.4 mL) subcut Q24H #30 mL 02/06/24 Rx subcutaneous syringe (Lovenox) fentanyl 25 mcg/hr transdermal 1 patch transdermal Q3D #10 ea 02/06/24 Rx patch ferrous sulfate 325 mg (65 mg 325 mg PO BIDM #60 tabs 02/06/24 Rx iron) tablet,delayed release metoprolol succinate 50 mg 50 mg PO QAM #30 tabs 02/06/24 Rx tablet,extended release 24 hr polyethylene glycol 3350 17 gram 17 g PO DAILY #30 ea 02/06/24 Rx oral powder packet (Miralax) prednisone 10 mg tablet 30 mg (3 x 10 mg) PO DAILY #30 tabs 02/06/24 Rx sennosides 8.6 mg-docusate sodium 1 tab PO BID #60 tabs 02/06/24 Rx 50 mg tablet (Senokot-S) Past Med/Surg History Problem List (Updated 02/01/24 @ 19:19 by Marizol Ramirez MD) Elevated LFTs Acute blood loss anemia Obesity Dysuria Encephalitis Hematoma of chest wall (Acute) Chest pain (Acute) Metabolic encephalopathy Pulmonary embolism on long-term anticoagulation therapy Demand ischemia Atrial fibrillation and flutter Altered mental status Acute kidney injury superimposed on CKD Complicated UTI (urinary tract infection) Severe sepsis Hypovolemic shock Vomiting (Acute) Hypomagnesemia (Acute) Bilateral cellulitis of lower leg (Acute) Bilateral leg edema (Acute) Prostate nodule ELISABETH (acute kidney injury) Hypomagnesemia Bilateral cellulitis of lower leg (Acute) Leg swelling (Acute) ALVAREZ (dyspnea on exertion) (Acute) Pulmonary embolism (Acute) Cellulitis Incontinence Port-A-Cath in place (01/24/23) Infusaport Insertion to right internal jugular with Fluoroscopy(Right) - Vamsi Tolbert, Allergic reaction (Acute) Pulmonary embolism Trigeminal neuralgia (Acute) Trigeminal neuralgia (Acute) Vitamin D deficiency (Acute) Hypertension (Acute) Chronic kidney disease, stage 3 (Acute) Vitamin D deficiency (Chronic) Prostate cancer screening Thoracic ascending aortic aneurysm Gastritis Insomnia Encounter for pre-operative examination Primary osteoarthritis, left shoulder Low back pain with sciatica (Acute) History of pulmonary embolism 2016, unknown etiology Constipated (Acute) MCFP (current) use of anticoagulants (Chronic) History of malignant melanoma Left side of neck Aortic aneurysm CT 12/2022- "Aneurysmal dilatation of the ascending thoracic aorta measuring up to 4.6 cm in diameter. This is similar to the prior studies." Follows with Dr. Marshall Hypercholesterolemia (Acute) Stone in kidney Hx Hypertension (Chronic) Chronic kidney disease, stage III (moderate) (Chronic) Trigeminal neuralgia (Acute) s/p radiated nerve, No issues x several years Medical History (Updated 02/01/24 @ 19:19 by Marizol Ramirez MD) COVID-19 Osteoarthritis Surgical History History of left shoulder replacement History of right shoulder replacement History of total left knee replacement (TKR) History of total right knee replacement (TKR) with revision History of colonoscopy History of inguinal hernia repair History of cancer surgery Left side of neck resection + lymph node removal History of tooth extraction History of tonsillectomy and adenoidectomy History of sinus surgery History of cystoscopy History of cataract surgery bilateral History of back surgery L4-L5 with screws Family History Family/Other Diabetes Heart disease Nephrolithiasis Other No family history of adverse response to anesthesia Social History Smoking Status: Never smoker Second Hand Exposure: No; Do You Dip or Chew Tobacco: No; Hx Alcohol Use: No Hx Substance Use: No Preferred Language: Kyrgyz Communication Ability: Effective Partner Management Consultant Required: No Beliefs That Will Affect Care: None Current Living Situation: Spouse current occupational status: retired Feels Safe at Home: Yes Seatbelt Use: always Assistive Devices: Cane and Walker Physical Exam Physical Exam: Physical Exam: General: In no acute distress, stated age, chronically ill-appearing but nontoxic HEENT: Normocephalic, atraumatic, no scleral icterus, pupils around round, symmetrical, and reactive to light, moist mucus membranes, trachea midline, no thyromegaly Chest/Pulm: No respiratory distress, symmetrical chest expansion, clear breath sounds throughout Cardiac: RRR, no murmurs noted Abdomen: Negative for ascites and bruising, normoactive bowel sounds, soft, non-tender to palpation throughout Musculoskeletal: No acute trauma, large left shoulder/chest hematoma does reduce ROM of the left shoulder due to pain and swelling Extremities: Patient with intact and symmetrical radial pulses in the bilateral upper extremities l, dorsalis pedis, and posterior tibial pulses are intact and symmetrical, 1+ edema in the bilateral lower extremities Skin: Large area of swelling extending over the left chest and shoulder from known left chest/shoulder hematoma, no signs of skin breakdown or trauma Neuro: Alert and oriented to person, place, month, year, and president, no focal defects, no tremors noted Psych: No acute distress, calm and cooperative during the exam Results & Data Results & Data Vital Signs (Past 12 Hours) Vital Signs Temp Pulse Pulse Resp BP BP Pulse Ox 01/27/24 12:30 68 15 111/69 98 01/27/24 12:00 68 12 130/93 98 01/27/24 11:30 68 10 L 114/66 97 01/27/24 11:09 36.7 C 69 12 111/65 96 01/27/24 11:00 72 25 H 111/65 01/27/24 10:54 71 18 116/70 01/27/24 10:50 116/70 01/27/24 10:42 72 18 124/67 01/27/24 10:25 85 12 114/73 01/27/24 09:50 70 14 107/65 95 01/27/24 09:39 70 18 01/27/24 09:39 75 20 114/65 98 01/27/24 09:33 75 20 01/27/24 09:32 68 18 99/63 L 01/27/24 09:30 75 16 80/66 L 96 01/27/24 09:20 70 18 102/61 95 01/27/24 09:10 78 18 88/69 L 94 01/27/24 08:50 92 H 16 103/73 95 01/27/24 07:40 107/65 01/27/24 07:39 68 14 01/27/24 07:30 66 16 114/70 96 01/27/24 07:09 67 14 126/72 95 01/27/24 06:42 66 15 109/63 96 01/27/24 05:57 64 13 115/66 99 01/27/24 05:36 66 14 120/61 98 01/27/24 05:03 66 12 146/63 H 97 01/27/24 04:03 66 21 149/88 H 01/27/24 03:30 65 15 151/85 H 94 01/27/24 03:00 71 15 147/83 H 94 01/27/24 02:30 65 17 164/77 H 95 01/27/24 01:45 63 14 141/86 H 01/27/24 01:37 64 01/27/24 01:35 36.9 C 64 12 141/86 H 93 01/27/24 01:35 93 01/27/24 01:35 36.9 C 64 12 14186 H 93 O2 Del Method O2 Flow Rate 01/27/24 12:30 01/27/24 12:00 Nasal Cannula 2 01/27/24 11:30 Nasal Cannula 2 01/27/24 11:09 Nasal Cannula 2 01/27/24 11:00 01/27/24 10:54 01/27/24 10:50 01/27/24 10:42 01/27/24 10:25 01/27/24 09:50 01/27/24 09:39 01/27/24 09:39 01/27/24 09:33 01/27/24 09:32 01/27/24 09:30 01/27/24 09:20 01/27/24 09:10 01/27/24 08:50 01/27/24 07:40 01/27/24 07:39 01/27/24 07:30 01/27/24 07:09 Room Air 01/27/24 06:42 01/27/24 05:57 01/27/24 05:36 01/27/24 05:03 01/27/24 04:03 01/27/24 03:30 01/27/24 03:00 01/27/24 02:30 01/27/24 01:45 01/27/24 01:37 01/27/24 01:35 Room Air 01/27/24 01:35 Room Air 01/27/24 01:35 Room Air Laboratory Results Abnormal lab results 01/27/24 01/27/24 01/27/24 Range/Units 01:50 12:44 Unknown WBC 23.52 H D (4.8-10.8) K/ul RBC 3.66 L (4.70-6.10) M/uL Hgb 11.8 L 10.7 L (14.0-18.0) g/dl Hct 35.6 L 33.3 L (42.0-52.0) % RDW Std Deviation 57.5 H (36.4-46.3) fL RDW Coeff of Lisbeth 16.2 H (11.5-14.5) % Neut # (Auto) 14.72 H (1.40-6.50) K/uL Lymph # (Auto) 6.73 H (1.20-3.40) K/uL [place] # (Auto) 1.80 H (0.11-0.59) K/uL Immature Gran # (Auto) 0.24 H (0.01-0.20) K/uL PT 12.5 H (9.0-12.0) Seconds INR 1.2 H (0.9-1.1) BUN 48 H (6-23) mg/dl BUN/Creatinine Ratio 37.5 H (10-20) Glucose 145 H (70-99(Fasting)) mg/dl Calcium 7.5 L (8.6-10.3) mg/dl Total Bilirubin 1.4 H (0.2-1.0) mg/dl AST 150 H (13-39) U/L ALT 155 H (7-52) U/L Troponin I High Sens 31.5 H (0-20) pg/ml Total Protein 5.5 L (6.0-8.3) gm/dl Albumin 3.0 L (3.4-5.0) gm/dl Crossmatch See Detail Diagnostic Findings Chest CT 01/27/24 01:41 CR Exam(s): CT CHEST With Contrast IV Amt: 94 ml opti 320 EXAM: CT Chest With Intravenous Contrast CLINICAL HISTORY: Reason for exam: chest pain/swelling/ecchymosis/lovenox. TECHNIQUE: Axial computed tomography images of the chest with intravenous contrast. CTDI is 38.67 mGy and DLP is 1273.02 mGy-cm. Automated exposure control was utilized for the study. A dose lowering technique was utilized adhering to the principles of ALARA. CONTRAST: Patient received 94 ml opti 320 of IV contrast COMPARISON: PET/CT scan: 07/06/2022 FINDINGS: Diagnostic sensitivity of the exam is reduced by motion artifact A right IJ Port-A-Cath terminates in the mid SVC. Soft tissues: A massive 17.8 x 13.0 x 13.6 cm left pectoralis muscle hematoma with a fluid level seen with corresponding/surrounding left chest wall soft tissue edema and with subcutaneous fat stranding, could be a complication of an anticoagulant therapy (series 2 image 27, series 401 image 27). Lungs: Central airways are patent. Bilateral diffuse moderate bronchial wall thickening and mild dilatation. Posteriorly left lower lobe consolidative infiltrates with a small left pleural effusion. Inferiorly right basilar subpleural/parenchymal mild atelectasis/infiltrates.. No discernible mass. No pneumothorax. No significant right pleural effusion. Right posterior pleural thickening. An elevated right hemidiaphragm. Heart: Mild cardiomegaly. Increased pericardial fat pad. No significant pericardial effusion. Proximally left coronary artery calcifications. Bones/joints: Osteopenia. No acute fracture. No dislocation. Multilevel moderate degenerative spondylotic changes. Bilateral shoulder replacement. Vasculature: Atherosclerotic calcifications of the aorta.. There is a 4.7 cm thoracic ascending aortic aneurysm. An enlarged main pulmonary artery: 34 mm in diameter. Lymph nodes: Unremarkable. No enlarged lymph nodes. Other findings: . Hepatic steatosis, altered subtle nodular contour concerning for underlying chronic liver parenchymal disease. A small perihepatic ascites. A contracted gallbladder. IMPRESSION: A massive 17.8 x 13.0 x 13.6 cm left pectoralis muscle hematoma with a fluid level and with corresponding/surrounding left chest wall soft tissue edema/subcutaneous fat stranding demonstrated, most likely a complication of an anticoagulant therapy. Recommend clinical correlation. Posteriorly left lower lung lobe consolidative infiltrates with a small left pleural effusion seen. A 4.7 cm ascending aortic aneurysm. An enlarged main pulmonary artery, reflective of sequela of pulmonary arterial hypertension. . Communications: Call Doctor Active Bleeding in any site Electronically signed by: Asif Alba MD, DABR 01/27/24 04:[address] 01/27/24 09:55 CT SCAN OF THE CHEST WITHOUT IV CONTRAST CLINICAL HISTORY: Chest wall hematoma. COMPARISON STUDY: Prior chest CT scans, most recently performed earlier the same day 01/27/2024. TECHNIQUE: CT scan of the thorax was performed from the thoracic inlet to the upper abdomen. Images are reviewed in the axial, sagittal, and coronal planes. IV contrast was not administered for this examination as per the referring clinician. A dose lowering technique was utilized adhering to the principles of ALARA. CT DOSE: 1068.51 mGy.cm FINDINGS: Thyroid: Imaged portions of the thyroid gland are normal in size and attenuation. Thoracic aorta: There is atherosclerotic calcification of the thoracic aorta there there is aneurysmal dilatation of the ascending thoracic aorta which measures up to 4.8 cm. The remainder of the thoracic aorta is normal in caliber, and the arch demonstrates bovine variant anatomy. Heart: The heart is top normal in size and without pericardial effusion. The coronary arteries are densely calcified. Lungs and pleural spaces: Evaluation of the lung parenchyma is degraded by motion artifact. There are small left and trace right pleural effusions with dependent consolidation. A 4.3 x 1.4 x 2.3 cm pleural-based lesion in the anterior right lung is again seen on image #163. This is been present dating back to 2014. There are scattered calcified granulomas. Mediastinum: There are calcifications within the mediastinal lymph nodes. No pathologically enlarged nodes are identified. Siri: Not well assessed without IV contrast. Axillae: There is no axillary lymphadenopathy. Upper abdomen: The liver is cirrhotic in morphology and heterogeneous attenuation. There is nodularity of the hepatic surface contour. Hyperdensity within the gallbladder lumen may represent vicariously excreted contrast. There is trace perihepatic and perisplenic ascites. Skeletal structures: The skeletal structures are osteopenic. No lytic or blastic bony lesions are seen. Bilateral shoulder arthroplasties are in place. Degenerative changes and kyphoscoliosis is seen in the spine. Soft tissues: Again seen is a large hematoma within the left anterior chest wall centered in the pectoralis muscle. There is surrounding infiltration. This contains a large hematocrit level and extends from above the thoracic inlet to the inferior chest wall. The collection has increased in size from previous, measuring approximately 21 x 11 x 17.5 cm (previously measuring up to 18.5 cm). IMPRESSION: 1. Again seen is a large hematoma in the left anterior chest wall centered in the pectoralis muscle. There is surrounding edema/infiltration within the left chest wall. The hematoma contents a hematocrit level and has increased in size from today's earlier examination. Active extravasation was shown on the prior contrast-enhanced study. 2. Small left and trace right pleural effusions with dependent consolidation. 3. Advanced coronary artery atherosclerosis. 4. Cirrhotic liver morphology and small volume upper abdominal ascites. 5. A pleural-based lesion in the anterior right lung has been present dating back to 2014. 6. Again seen is aneurysmal dilatation of the ascending thoracic aorta which measures up to 4.8 cm diameter. 7. Additional findings as above. ACT 112: Negative or not required by law. Electronically signed by: Urbano France M.D. 01/27/2024 11:53 AM Code Status & VTE Plan Code Status DNR/DNI VTE Prophylaxis Plan VTE Prophylaxis will be ordered: Yes Supervising Physician Co-Signing Physician Notes I personally saw and examined the patient. I verified all marroquin points and agree with Mynor Jaeger PA-C with the following exceptions and/or additions: 78 year old male presents to the ER with left shoulder and chest wall pain and hematoma O/E HS RRR, no murmurs, Chest CTAB, Abdo SNT, left chest wall hematoma extended to shoulder with normal radial and ulna pulses A/P Chest wall hematoma - protamine given in the ER, hold anticoagulation, trend hgb, transfuse < 7, consult general surgery PG Care Time/CCT Total # of Minutes Spent Total Time Spent with Patient: Total time spent is greater than 50% in coordination of care (as documented) at patient's floor/unit and/or counseling patient: Coding [place] [address] INT INP/OBS CARE 3/75MIN Patient Type Established Medical Decision Making High Complexity Diagnoses Hematoma of chest wall S20.219A Pulmonary embolism on long-term anticoagulation therapy I26.99; Z79.01 Encephalitis G04.90 Dysuria R30.0 Atrial fibrillation and flutter I48.91; I48.92
[2024-01-27] MEDS: predniSONE 50 MG TAB PO SCH (15:09)
[2024-01-27] MEDS: PANTOprazole 40 MG in SYRINGE 0 ML IV ONE (15:34)
[2024-01-27 16:05] LABS: Hematocrit (blood only) 32.6 % (42.0-52.0); Hemoglobin 10.5 g/dl (14.0-18.0); Mean Corpuscular Hemoglobin 32.8 pg (25.0-34.0); Mean Corpuscular Hgb Conc 32.2 g/dL (32.0-36.0); Mean Corpuscular Volume 101.9 fL (80.0-100.0); Mean Platelet Volume 10.5 fL (9.4-12.4); Nucleated RBC # (auto) 0.02 K/uL (0.00-0.12); Nucleated RBC % (auto) 0.1 %; Platelet Count 209 K/uL (130-400); RDW Coefficient of Variation 16.6 % (11.5-14.5); RDW Standard Deviation 59.4 fL (36.4-46.3); White Blood Count 20.42 K/ul (4.8-10.8)
[2024-01-27] MEDS: MoRPHine SULFATE 2 MG/ML CARP IV STA (17:46)
--- NOTE | 2024-01-27 22:04 | Surgery Consultation ---
Date of Consultation January 27, 2024 Assessment & Plan (1) Pulmonary embolism on long-term anticoagulation therapy: (2) Hematoma of chest wall: Plan No surgical intervention indicated Anticoagulation has been held and reversed, continue further conservative management at this time with H/H trending. Patient ordered for q6 cbc checks. Transfuse as needed. Hold off on pressure dressing at this time. Recommend pack left chest and shoulder area with ice packs which can be secured in place with a lightly wrapped KIERAN. Elevated LUE as much as possible to keep edema from the extremity. Will need transfer to a tertiary center with IR capability if this shows evidence for further expansion and H/H instability Will follow with you History of Present Illness Reason for Consultation: Left shoulder hematoma Attending Physician: Danny Farah MD History of Present Illness Tio is a 78-year-old male with a past medical history significant for pulmonary embolism (failed warfarin therapy, recently on Lovenox), stage III melanoma started on pembrolizumab 01/12/2023, atrial fibrillation, stage III CKD. 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 He re-presented to our ED today from [facility] via EMS on 01/27/2024 due to concerns for chest pain and left-sided chest wall swelling. In the ED he developed significant hypotension with systolic to the 80's. Hgb decreased from 12.2 date of discharge to 10.7 today. He also developed a new leukocytosis of 23,000. An initial CT chest was performed revealing a large 17cm hematoma involving the left pectoralis muscle. An addendum was added to indicate active extravasation. As ED personnel examined the patient, the area began to expand quite substantially along with the HD changes prompting a follow up CT. At the second CT performed roughly 8 hours after the first, there was no active extravasation at that time. An attempt was reportedly made for transfer to [facility] for IR management but they were unable to accept the patient at this time recommending initiating conservative management here for now. Pressure dressing was recommended. He has been admitted to medicine and surgery has been consulted to follow for now. The patient reportedly developed numbness and tingling some time after the pressure dressing was applied and this was removed. The patient does not give a good history or review of systems at this time due to lethargy. The family is at bedside to provide what history they can. Other history obtained from his chart. Family is unaware of the events that took place at [facility] leading up to the transport back to the ED but does note that he complained of left chest /shoulder pain prior to his discharge from here. Allergies Allergy/AdvReac Type Severity Reaction Status Date / Time gabapentin Allergy Intermediate Rash Verified 01/11/24 14:50 tramadol Allergy Intermediate Rash and Verified 01/11/24 14:50 itchiness hydrocodone Allergy Mild itchy Verified 01/11/24 14:50 oxycodone Allergy Mild itchy Verified 01/11/24 14:50 carbamazepine Allergy Unknown Unknown Verified 01/11/24 14:50 ciprofloxacin Allergy Unknown Unknown Verified 01/11/24 14:50 Home Medications Medication Instructions Recorded Confirmed Type enoxaparin 120 mg/0.8 mL 120 mg (0.8 mL) subcut Q12H 30 01/04/24 01/27/24 Rx subcutaneous syringe (Lovenox) days #48 mL metoprolol tartrate 25 mg tablet 25 mg PO BID #60 tabs 01/26/24 01/27/24 Rx acetaminophen 650 mg 650 mg PO Q4H PRN Pain 01/27/24 01/27/24 History tablet,extended release allopurinol 100 mg tablet 100 mg PO DAILY 01/27/24 01/27/24 History Patient History Medical History COVID-19 Osteoarthritis Surgical History History of left shoulder replacement History of right shoulder replacement History of total left knee replacement (TKR) History of total right knee replacement (TKR) with revision History of colonoscopy History of inguinal hernia repair History of cancer surgery Left side of neck resection + lymph node removal History of tooth extraction History of tonsillectomy and adenoidectomy History of sinus surgery History of cystoscopy History of cataract surgery bilateral History of back surgery L4-L5 with screws Family History Family/Other Diabetes Heart disease Nephrolithiasis Other No family history of adverse response to anesthesia Social History Smoking Status: Never smoker Second Hand Exposure: No; Do You Dip or Chew Tobacco: No; Tobacco Cessation Education Requested by Patient: No Hx Alcohol Use: No Hx Substance Use: No Preferred Language: Estonian Communication Ability: Effective Implementation Consultant Required: No Beliefs That Will Affect Care: None Current Living Situation: Spouse current occupational status: retired Other Information That Helps Us Care for You: No Feels Safe at Home: Yes Safety Concerns: Feels Safe At This Time Seatbelt Use: always Assistive Devices: Cane, Walker and Wheelchair Review of Systems Review of Systems: Unobtainable due to reduced consciousness Constitutional: no fever, no chills and no sweats states he hurts all over Physical Exam Constitutional: + obese; not diaphoretic appears sleepy. Will arouse occasionally to answer questions and answers appropriately Respiratory: normal respiratory effort; no respiratory distress, no labored breathing and does not use accessory muscles Gastrointestinal (Abdomen): Inspection/Auscultation: abdomen not distended Percussion/Palpation: abdomen soft; abdomen nontender obese Musculoskeletal: edema b/l LE LUE with proximal swelling noted at the shoulder. 5/5 radial and ulnar pulses LUE Does have some altered sensation but states improved since removal of pressure dressing. There is significant swelling at the anterior/upper outer left chest with mild ecchymosis noted at the axillary regions and lateral thorax dependant areas There is no circimferencial swelling of the LUE. Swelling limited to the posterior aspect of the proximal humerus and shoulder. The skin and soft tissues of the LUE are not tense. Results & Data Vital Signs (Past 12 Hours) Vital Signs Temp Pulse Pulse Resp BP BP Pulse Ox 01/27/24 20:11 36.7 C 73 17 151/82 H 95 01/27/24 17:55 01/27/24 17:55 36.4 C L 78 16 147/75 H 94 01/27/24 17:32 75 01/27/24 17:32 36.6 C 78 16 147/75 H 94 01/27/24 16:34 78 17 107/63 96 01/27/24 16:21 81 14 01/27/24 16:18 84 16 01/27/24 16:00 77 18 95 01/27/24 16:00 98/63 L 01/27/24 16:00 98/63 L 01/27/24 15:51 83 19 92 01/27/24 15:48 78 18 01/27/24 15:30 74 18 93 01/27/24 15:30 106/64 01/27/24 15:30 106/64 01/27/24 15:27 74 24 93 01/27/24 15:14 74 22 112/71 95 01/27/24 15:12 75 17 95 01/27/24 15:08 112/71 01/27/24 15:08 112/71 01/27/24 15:01 83/57 L 01/27/24 14:55 120/80 01/27/24 14:55 120/80 01/27/24 14:55 120/80 01/27/24 14:55 120/80 01/27/24 14:18 87 19 01/27/24 14:00 72 17 100/68 92 01/27/24 13:24 73 19 93 01/27/24 13:12 75 14 97 01/27/24 13:03 71 15 97 01/27/24 13:00 108/72 01/27/24 13:00 86 12 108/72 96 01/27/24 12:48 75 18 97 01/27/24 12:30 68 15 111/69 98 01/27/24 12:00 68 12 130/93 98 01/27/24 11:30 68 10 L 114/66 97 01/27/24 11:09 36.7 C 69 12 111/65 96 01/27/24 11:00 72 25 H 111/65 01/27/24 10:54 71 18 116/70 01/27/24 10:50 116/70 01/27/24 10:42 72 18 124/67 01/27/24 10:25 85 12 114/73 O2 Del Method O2 Flow Rate 01/27/24 20:11 Nasal Cannula 1 01/27/24 17:55 Nasal Cannula 2 01/27/24 17:55 Nasal Cannula 2 01/27/24 17:32 01/27/24 17:32 Nasal Cannula 2 01/27/24 16:34 Nasal Cannula 2 01/27/24 16:21 01/27/24 16:18 01/27/24 16:00 01/27/24 16:00 01/27/24 16:00 01/27/24 15:51 01/27/24 15:48 01/27/24 15:30 01/27/24 15:30 01/27/24 15:30 01/27/24 15:27 01/27/24 15:14 Nasal Cannula 2 01/27/24 15:12 01/27/24 15:08 01/27/24 15:08 01/27/24 15:01 01/27/24 14:55 01/27/24 14:55 01/27/24 14:55 01/27/24 14:55 01/27/24 14:18 01/27/24 14:00 01/27/24 13:24 01/27/24 13:12 01/27/24 13:03 01/27/24 13:00 01/27/24 13:00 Nasal Cannula 1 01/27/24 12:48 01/27/24 12:30 01/27/24 12:00 Nasal Cannula 2 01/27/24 11:30 Nasal Cannula 2 01/27/24 11:09 Nasal Cannula 2 01/27/24 11:00 01/27/24 10:54 01/27/24 10:50 01/27/24 10:42 01/27/24 10:[address] chest 0141 [facility] ADDENDUM ADDENDUM: 01/27/24 04:20 Call Doctor Regarding Active Bleeding in any site, VR with Daniel for Dr. Cobos on 01/26 04:20 (-04:00) ADDENDUM END Exam(s): CT CHEST With Contrast IV Amt: 94 ml opti 320 EXAM: CT Chest With Intravenous Contrast CLINICAL HISTORY: Reason for exam: chest pain/swelling/ecchymosis/lovenox. TECHNIQUE: Axial computed tomography images of the chest with intravenous contrast. CTDI is 38.67 mGy and DLP is 1273.02 mGy-cm. Automated exposure control was utilized for the study. A dose lowering technique was utilized adhering to the principles of ALARA. CONTRAST: Patient received 94 ml opti 320 of IV contrast COMPARISON: PET/CT scan: 07/06/2022 FINDINGS: Diagnostic sensitivity of the exam is reduced by motion artifact A right IJ Port-A-Cath terminates in the mid SVC. Soft tissues: A massive 17.8 x 13.0 x 13.6 cm left pectoralis muscle hematoma with a fluid level seen with corresponding/surrounding left chest wall soft tissue edema and with subcutaneous fat stranding, could be a complication of an anticoagulant therapy (series 2 image 27, series 401 image 27). Lungs: Central airways are patent. Bilateral diffuse moderate bronchial wall thickening and mild dilatation. Posteriorly left lower lobe consolidative infiltrates with a small left pleural effusion. Inferiorly right basilar subpleural/parenchymal mild atelectasis/infiltrates.. No discernible mass. No pneumothorax. No significant right pleural effusion. Right posterior pleural thickening. An elevated right hemidiaphragm. Heart: Mild cardiomegaly. Increased pericardial fat pad. No significant pericardial effusion. Proximally left coronary artery calcifications. Bones/joints: Osteopenia. No acute fracture. No dislocation. Multilevel moderate degenerative spondylotic changes. Bilateral shoulder replacement. Vasculature: Atherosclerotic calcifications of the aorta.. There is a 4.7 cm thoracic ascending aortic aneurysm. An enlarged main pulmonary artery: 34 mm in diameter. Lymph nodes: Unremarkable. No enlarged lymph nodes. Other findings: . Hepatic steatosis, altered subtle nodular contour concerning for underlying chronic liver parenchymal disease. A small perihepatic ascites. A contracted gallbladder. IMPRESSION: A massive 17.8 x 13.0 x 13.6 cm left pectoralis muscle hematoma with a fluid level and with corresponding/surrounding left chest wall soft tissue edema/subcutaneous fat stranding demonstrated, most likely a complication of an anticoagulant therapy. Recommend clinical correlation. Posteriorly left lower lung lobe consolidative infiltrates with a small left pleural effusion seen. A 4.7 cm ascending aortic aneurysm. An enlarged main pulmonary artery, reflective of sequela of pulmonary arterial hypertension. CT chest 0955 IMPRESSION: 1. Again seen is a large hematoma in the left anterior chest wall centered in the pectoralis muscle. There is surrounding edema/infiltration within the left chest wall. The hematoma contents a hematocrit level and has increased in size from today's earlier examination. Active extravasation was shown on the prior contrast-enhanced study. 2. Small left and trace right pleural effusions with dependent consolidation. 3. Advanced coronary artery atherosclerosis. 4. Cirrhotic liver morphology and small volume upper abdominal ascites. 5. A pleural-based lesion in the anterior right lung has been present dating back to 2014. 6. Again seen is aneurysmal dilatation of the ascending thoracic aorta which measures up to 4.8 cm diameter. 7. Additional findings as above. PG Care Time/CCT Total # of Minutes Spent Total Time Spent with Patient: Total time spent is greater than 50% in coordination of care (as documented) at patient's floor/unit and/or counseling patient: Coding Level of Care Code 82248 INT INP/OBS CARE 2/55MIN Diagnoses Pulmonary embolism on long-term anticoagulation therapy I26.99; Z79.01 Hematoma of chest wall S20.219A
[2024-01-27 22:41] LABS: Hematocrit (blood only) 33.5 % (42.0-52.0); Hemoglobin 10.8 g/dl (14.0-18.0); Mean Corpuscular Hgb Conc 32.2 g/dL (32.0-36.0); Mean Corpuscular Volume 102.4 fL (80.0-100.0); Mean Platelet Volume 10.8 fL (9.4-12.4); Platelet Count 181 K/uL (130-400); RDW Coefficient of Variation 16.7 % (11.5-14.5); RDW Standard Deviation 62.9 fL (36.4-46.3); Red Blood Count 3.27 M/uL (4.70-6.10); White Blood Count 18.39 K/ul (4.8-10.8)
[2024-01-27] MEDS: ACETAMINOPHEN 325 MG TAB PO SCH (23:53)
[2024-01-28 01:04] LABS: Appearance Urine Clear (Clear); Bacteria Urine Automated None Seen (None Seen); Bilirubin Urine Negative (Negative); Blood Urine Negative (Negative); Color Urine Yellow; Epithelial Cell Urine Auto 0-2 /hpf (0-2); Glucose Urine UA Negative (Negative); Ketones Urine Negative (Negative); Leukocyte Esterase Urine Negative (Negative); Nitrite Urine Negative (Negative); Protein Urine 1+ (Negative); RBC Urine Automated 0-2 /hpf (0-2); Specific Gravity Urine 1.033 (1.000-1.030); Urobilinogen Urine Negative (Negative); WBC Urine Automated 0-5 /hpf (0-5)
[2024-01-28 06:46] LABS: Albumin Level 3.1 gm/dl (3.4-5.0); Bilirubin,Total 1.1 mg/dl (0.2-1.0); Calcium 7.5 mg/dl (8.6-10.3); Magnesium 2.1 mg/dl (1.7-2.4)
[2024-01-28 06:50] LABS: Prothrombin Time 10.9 Seconds (9.0-12.0)
[2024-01-28 06:52] LABS: Albumin Globulin Ratio 1.3 (0.9-2); BUN Creatinine Ratio 40.8 (10-20); Creatinine Clr Calc Pharmacy 65.5 ml/min; Est GFR (African American) 66.3 ml/min; Est GFR (Non-African American) 57.2 ml/min; Globulin 2.3 gm/dl (2.5-4.0); Total Protein 5.4 gm/dl (6.0-8.3)
[2024-01-28 07:01] LABS: Hematocrit (blood only) 29.7 % (42.0-52.0); Hemoglobin 9.9 g/dl (14.0-18.0); Mean Corpuscular Hemoglobin 32.6 pg (25.0-34.0); Mean Corpuscular Hgb Conc 33.3 g/dL (32.0-36.0); Mean Corpuscular Volume 97.7 fL (80.0-100.0); Mean Platelet Volume 11.5 fL (9.4-12.4); Platelet Count 152 K/uL (130-400); RDW Coefficient of Variation 16.3 % (11.5-14.5); RDW Standard Deviation 57.7 fL (36.4-46.3); Red Blood Count 3.04 M/uL (4.70-6.10); White Blood Count 17.06 K/ul (4.8-10.8)
[2024-01-28] MEDS: PANTOprazole 40 MG TAB PO SCH (08:50)
[2024-01-28] MEDS: allopurinoL 100 MG TAB PO SCH (08:50)
[2024-01-28] MEDS: METOPROLOL SUCC 50MG EXT REL TAB PO SCH (08:50)
[2024-01-28 09:56] LABS: Hemoglobin 9.7 g/dl (14.0-18.0); Mean Corpuscular Hgb Conc 33.4 g/dL (32.0-36.0); Mean Corpuscular Volume 98.6 fL (80.0-100.0); Mean Platelet Volume 11.6 fL (9.4-12.4); Nucleated RBC # (auto) 0.02 K/uL (0.00-0.12); Nucleated RBC % (auto) 0.1 %; Platelet Count 177 K/uL (130-400); RDW Coefficient of Variation 16.7 % (11.5-14.5); RDW Standard Deviation 59.7 fL (36.4-46.3); Red Blood Count 2.94 M/uL (4.70-6.10); White Blood Count 21.78 K/ul (4.8-10.8)
[2024-01-28] MEDS ORDERED: PANTOprazole 40 MG in SYRINGE 0 ML IV SCH (11:00)
--- NOTE | 2024-01-28 11:19 | Surgery Progress Note ---
<Statement entered by Vanessa Pardo, DO - 01/28/24 11:37> I have seen and examined this patient with the surgical PA, and I agree with this plan Date of Service January 28, 2024 Assessment & Plan (1) Pulmonary embolism on long-term anticoagulation therapy: (2) Hematoma of chest wall: Plan: Patient seen and examined with Dr. Pardo. No surgical intervention indicated. H and H remain at acceptable levels. Anticoagulation has been held and reversed, continue further conservative management at this time with H/H trending. Patient ordered for q6 cbc checks. Transfuse as needed. Spoke with patient's nurse- she will add at least 2 additional ice packs to left shoulder/chest. Will need transfer to a tertiary center with IR capability if this shows evidence for further expansion and H/H instability Admission and Anticipated Discharge Date Admission Date: January 27, 2024 Timothy Kinsey is sitting at bedside. He comments that he continues to have a lot of pain and "hurts everywhere." Ice pack in place on left shoulder with KIERAN wrap holding it in place. Review of Systems Constitutional: as per Subjective / HPI; no fever and no chills Physical Exam Constitutional: + obese; not diaphoretic awake and able to answer questions Respiratory: normal respiratory effort; no respiratory distress, no labored breathing and does not use accessory muscles Gastrointestinal (Abdomen): Inspection/Auscultation: abdomen not distended Percussion/Palpation: abdomen soft; abdomen nontender obese Musculoskeletal: edema b/l LE LUE with proximal swelling noted at the shoulder. 5/5 radial and ulnar pulses LUE No longer having altered sensation. There is significant swelling at the anterior/upper outer left chest with mild ecchymosis noted at the axillary regions and lateral thorax dependant areas There is no circumferential swelling of the LUE. Swelling limited to the posterior aspect of the proximal humerus and shoulder. The skin and soft tissues of the LUE are not tense. Single ice pack in place at left shoulder with KIERAN wrap holding it in place. Results & Data Vital Signs (Past 12 Hours) Vital Signs Temp Pulse Pulse Resp BP Pulse Ox O2 Del Method 01/28/24 10:53 36.9 C 73 18 150/76 H 97 Nasal Cannula 01/28/24 08:09 Nasal Cannula 01/28/24 08:00 74 01/28/24 07:00 36.5 C 73 18 122/68 96 Nasal Cannula 01/28/24 03:07 36.8 C 74 16 142/78 H 95 Nasal Cannula 01/27/24 23:40 36.4 C L 74 16 151/77 H 93 Room Air O2 Flow Rate 01/28/24 10:53 1 01/28/24 08:09 2 01/28/24 08:00 01/28/24 07:00 1 01/28/24 03:07 2 01/27/24 23:40 PG Care Time/CCT Total # of Minutes Spent Total Time Spent with Patient: Total time spent is greater than 50% in coordination of care (as documented) at patient's floor/unit and/or counseling patient: Coding Level of Care Code 61563 SUB INP/OBS CARE MIN Diagnoses Pulmonary embolism on long-term anticoagulation therapy I26.99; Z79.01 Hematoma of chest wall S20.219A
[2024-01-28] MEDS: fentaNYL 25 MCG/HR TDSY TD SCH (12:04)
--- NOTE | 2024-01-28 14:24 | Hospitalist Progress Note ---
Date of Service January 28, 2024 Assessment & Plan (1) Hematoma of chest wall: Plan: Left upper anterior chest wall and left shoulder area. Lovenox is temporarily on hold. Pressure dressings in place. Appreciate general surgery consultation and recommendations. Serial labs ordered. Pain control measures with addition of low-dose fentanyl patch started. Unfortunately he is allergic to multiple pain medications including oxycodone, hydrocodone, and tramadol (2) Pulmonary embolism on long-term anticoagulation therapy: Plan: Currently on Lovenox due to failed warfarin therapy for chronic nonocclusive and partially calcified emboli within the right lower lobe segmental pulmonary arteries and occluded subsegmental branch within the posterior basal right lower lobe pulmonary artery which was noted to be new on CTA of the chest 01/03/2024. Lovenox is currently on hold. Will restart as soon as possible (3) Encephalitis: Plan: Recently diagnosed with checkpoint inhibitor encephalitis during his recent admission this past month. confirms that he is back to his normal baseline mental status after being started on systemic steroids. Currently on prednisone 50 mg daily and it will be decreased by 10 mg every 5 days starting tomorrow, January 28. (4) Dysuria: Plan: Urine analysis unremarkable. No evidence of UTI (5) Atrial fibrillation and flutter: Plan: Currently in rate controlled sinus rhythm. Holding anticoagulation with hematoma. Will continue daily metoprolol succinate Plan Hopeful return to [facility] soon Admission and Anticipated Discharge Date Admission Date: January 27, 2024 Subjective Alert and oriented. Hemodynamically stable. Primary complaint is generalized pain. He is allergic to multiple medications. Low-dose fentanyl patch has been ordered. Surgical consultation appreciated. Lovenox is currently on hold. Serial H&H ordered. Hopefully Lovenox can be restarted as soon as possible because of history of pulmonary emboli. He was just discharged to [facility] on January 25. Review of Systems 2 Review of Systems: Constitutionalno fever or chills ENTno blurred vision, no double vision, no epistaxis, no sore throat Respiratoryno cough, no wheezing, no shortness of breath Cardiacno palpitations, no chest pain, no syncope Ross nausea, vomiting, diarrhea, melena, hematochezia GUno urinary retention, no urinary incontinence, no dysuria, no hematuria Musculoskeletalleft shoulder swelling and left upper anterior chest wall swelling with pain. Generalized myalgia/arthralgia Skinno bruising, no rashes, no pruritus Neurono isolated weakness, no paresthesia. Psychno depression, no anxiety Physical Exam 2 Physical Exam: General-alert and oriented x3, no fever HEENT-head atraumatic and normocephalic, pupils equal and reactive to light, extraocular muscles intact Neck-no lymphadenopathy or thyromegaly, trachea midline Chest-clear to auscultation. No rales, wheezing or rhonchi Cardiac-regular rate and rhythm, normal S1 and S2 Abdomen-normal bowel sounds, no hepatosplenomegaly Extremities-swelling and tenderness left upper chest wall and left shoulder area. Neuro-cranial nerves II through XII intact, motor and sensory function within normal limits, strength symmetrical with generalized weakness, no focal deficits Psych-flat affect Results & Data Results & Data Vital Signs (Past 12 Hours) Vital Signs Temp Pulse Pulse Resp BP Pulse Ox O2 Del Method 01/28/24 10:53 36.9 C 73 18 150/76 H 97 Nasal Cannula 01/28/24 08:09 Nasal Cannula 01/28/24 08:00 74 01/28/24 07:00 36.5 C 73 18 122/68 96 Nasal Cannula 01/28/24 03:07 36.8 C 74 16 142/78 H 95 Nasal Cannula O2 Flow Rate 01/28/24 10:53 1 01/28/24 08:09 2 01/28/24 08:00 01/28/24 07:00 1 01/28/24 03:07 2 Laboratory Results 01/28/24 09:17 01/28/24 06:16 PG Care Time/CCT Total # of Minutes Spent Total Time Spent with Patient: Total time spent is greater than 50% in coordination of care (as documented) at patient's floor/unit and/or counseling patient: Coding Level of Care Code 25842 SUB INP/OBS CARE 3/50MIN Diagnoses Hematoma of chest wall S20.219A Pulmonary embolism on long-term anticoagulation therapy I26.99; Z79.01 Encephalitis G04.90 Dysuria R30.0 Atrial fibrillation and flutter I48.91; I48.92
[2024-01-28] MEDS: CHECK fentaNYL PATCH PLACEMENT SCH (16:22)
[2024-01-28 16:56] LABS: Hematocrit (blood only) 28.8 % (42.0-52.0); Hemoglobin 9.4 g/dl (14.0-18.0); Mean Corpuscular Hemoglobin 32.6 pg (25.0-34.0); Mean Corpuscular Hgb Conc 32.6 g/dL (32.0-36.0); Mean Platelet Volume 11.1 fL (9.4-12.4); Platelet Count 189 K/uL (130-400); RDW Coefficient of Variation 16.6 % (11.5-14.5); Red Blood Count 2.88 M/uL (4.70-6.10); White Blood Count 21.07 K/ul (4.8-10.8)
[2024-01-28 21:57] LABS: Hematocrit (blood only) 27.4 % (42.0-52.0); Mean Corpuscular Hemoglobin 32.7 pg (25.0-34.0); Mean Corpuscular Hgb Conc 32.8 g/dL (32.0-36.0); Mean Corpuscular Volume 99.6 fL (80.0-100.0); Mean Platelet Volume 10.7 fL (9.4-12.4); Platelet Count 175 K/uL (130-400); RDW Coefficient of Variation 16.5 % (11.5-14.5); RDW Standard Deviation 58.9 fL (36.4-46.3); Red Blood Count 2.75 M/uL (4.70-6.10); White Blood Count 20.38 K/ul (4.8-10.8)
[2024-01-29] MEDS: predniSONE 20 MG TAB PO SCH (08:48)
[2024-01-29 09:02] LABS: Hematocrit (blood only) 28.7 % (42.0-52.0); Hemoglobin 9.1 g/dl (14.0-18.0); Mean Corpuscular Hemoglobin 32.7 pg (25.0-34.0); Mean Corpuscular Hgb Conc 31.7 g/dL (32.0-36.0); Mean Corpuscular Volume 103.2 fL (80.0-100.0); Mean Platelet Volume 10.8 fL (9.4-12.4); Platelet Count 192 K/uL (130-400); RDW Coefficient of Variation 16.9 % (11.5-14.5); RDW Standard Deviation 62.5 fL (36.4-46.3); Red Blood Count 2.78 M/uL (4.70-6.10); White Blood Count 23.15 K/ul (4.8-10.8)
[2024-01-29 09:17] LABS: BUN Creatinine Ratio 38.3 (10-20); Calcium 7.6 mg/dl (8.6-10.3); Creatinine Clr Calc Pharmacy 68.3 ml/min; Est GFR (African American) 69.8 ml/min; Est GFR (Non-African American) 60.2 ml/min; Potassium 4.6 mmol/L (3.5-5.1)
--- NOTE | 2024-01-29 12:43 | Hospitalist Progress Note ---
Date of Service January 29, 2024 Assessment & Plan (1) Hematoma of chest wall: Plan: -Left upper anterior chest wall and left shoulder area -Patient received reversal of AC in the ER upon admission -Lovenox is temporarily on hold. Pressure dressings in place. -General surgery consulted: Appreciate recommendations. -Serial lab monitoring- CBC has regulated -Continue pain control measures- on 01/27 low-dose fentanyl patch was started. Unfortunately he is allergic to multiple pain medications including oxycodone, hydrocodone, and tramadol limiting options -Monitor saturations closely (2) Pulmonary embolism on long-term anticoagulation therapy: Plan: -On last discharge was discharged on Lovenox due to failed warfarin therapy for chronic nonocclusive and partially calcified emboli within the right lower lobe segmental pulmonary arteries and occluded subsegmental branch within the posterior basal right lower lobe pulmonary artery which was noted to be new on CTA of the chest 01/03/2024. -Lovenox is currently on hold. Will restart as soon as possible-surgery following (3) Encephalitis: Plan: -Recently diagnosed with checkpoint inhibitor encephalitis during his recent admission this past month. - confirms that he is back to his normal baseline mental status after being started on systemic steroids. -Patient was on prednisone 50 mg daily on admission with plans to decreased by 10 mg every 5 days- decreased to 40 mg on 01/28- will need to decrease to 30 mg on 02/02. (4) Dysuria: Plan: -Urine analysis unremarkable. No evidence of UTI (5) Atrial fibrillation and flutter: Plan: -Currently in rate controlled sinus rhythm. -Holding anticoagulation with hematoma. -Will continue daily metoprolol succinate Plan Admission and Anticipated Discharge Date Admission Date: January 27, 2024 Subjective Patient seen and evaluated bedside Patient reports pain over hematoma stie- reports it is slowly improving with addition of new pharmacotherapy yesterday H&H stabilizing now, remains hemodynamically stable Lovenox remains on hold for now. Review of Systems Review of Systems: As indicated in HPI Physical Exam Physical Exam: General-alert and oriented, no fever HEENT-head atraumatic and normocephalic, extraocular muscles intact Neck-no lymphadenopathy or thyromegaly, trachea midline Chest-clear to auscultation. No rales, wheezing or rhonchi Cardiac-regular rate and rhythm, normal S1 and S2 Abdomen-normal bowel sounds, no hepatosplenomegaly Extremities-swelling and tenderness in the left anterior upper chest wall and left shoulder area. Neuro-cranial nerves II through XII intact, motor and sensory function within normal limits, strength symmetrical with generalized weakness, no focal deficits Psych-flat affect Results & Data Results & Data Vital Signs (Past 12 Hours) Vital Signs Temp Pulse Pulse Resp BP Pulse Ox O2 Del Method 01/29/24 11:06 36.3 C L 73 18 132/66 94 Room Air 01/29/24 07:24 36.8 C 70 18 135/77 94 Room Air 01/29/24 03:02 36.8 C 69 18 114/70 95 Nasal Cannula O2 Flow Rate 01/29/24 11:06 01/29/24 07:24 01/29/24 03:02 1 PG Care Time/CCT Total # of Minutes Spent Total Time Spent with Patient: Total time spent is greater than 50% in coordination of care (as documented) at patient's floor/unit and/or counseling patient: Coding Level of Care Code 20455 SUB INP/OBS CARE 2/35MIN Diagnoses Hematoma of chest wall S20.219A Pulmonary embolism on long-term anticoagulation therapy I26.99; Z79.01 Encephalitis G04.90 Dysuria R30.0 Atrial fibrillation and flutter I48.91; I48.92
[2024-01-29 13:26] LABS: Basophils # (auto) 0.02 K/uL (0.00-0.20); Basophils % (auto) 0.1 %; Eosinophils # (auto) 0.02 K/uL (0.00-0.50); Eosinophils % (auto) 0.1 %; Hematocrit (blood only) 26.1 % (42.0-52.0); Hemoglobin 8.5 g/dl (14.0-18.0); Immature Granulocytes % (auto) 0.9 %; Lymphocytes # (auto) 1.89 K/uL (1.20-3.40); Lymphocytes % (auto) 8.4 %; Mean Corpuscular Hemoglobin 33.3 pg (25.0-34.0); Mean Corpuscular Hgb Conc 32.6 g/dL (32.0-36.0); Mean Corpuscular Volume 102.4 fL (80.0-100.0); Mean Platelet Volume 10.7 fL (9.4-12.4); Monocytes # (auto) 1.86 K/uL (0.11-0.59); Monocytes % (auto) 8.3 %; Neutrophils # (auto) 18.42 K/uL (1.40-6.50); Neutrophils % (auto) 82.2 %; Platelet Count 167 K/uL (130-400); RDW Standard Deviation 62.4 fL (36.4-46.3); Red Blood Count 2.55 M/uL (4.70-6.10); White Blood Count 22.41 K/ul (4.8-10.8)
--- NOTE | 2024-01-29 15:44 | Surgery Progress Note ---
Date of Service January 29, 2024 Assessment & Plan (1) Pulmonary embolism on long-term anticoagulation therapy: (2) Hematoma of chest wall: Plan No surgical intervention indicated Anticoagulation has been held and reversed, continue further conservative management at this time with H/H trending. H/H is stable. Next H/H pending for tomorrow. Transfuse as needed. Pack left chest and shoulder area with ice packs which can be secured in place with a lightly wrapped KIERAN. Elevated LUE as much as possible to keep edema from the extremity. We elevated this arm when we saw the patient today. Will need transfer to a tertiary center with IR capability if this shows evidence for further expansion and H/H instability Dr. Mcfadden will follow up in the am Admission and Anticipated Discharge Date Admission Date: January 27, 2024 Subjective I have seen and examined this patient this am. Patient sitting up in the chair and does not offer up any complaints. His and daughter are at the bedside. Physical Exam Respiratory: normal respiratory effort; no respiratory distress, no labored breathing and does not use accessory muscles Chest (Breasts): Additional Comments: Left chest with large swelling, known hematoma. Has some mild ecchymosis over the area. Musculoskeletal: LUE with swelling. The left hand is swollen slightly more today compared to yesterday Still with good pulses Results & Data Vital Signs (Past 12 Hours) Vital Signs Temp Pulse Pulse Resp BP Pulse Ox O2 Del Method 01/29/24 15:02 36.6 C 70 18 123/70 94 Room Air 01/29/24 12:00 73 01/29/24 11:06 36.3 C L 73 18 132/66 94 Room Air 01/29/24 07:24 36.8 C 70 18 135/77 94 Room Air PG Care Time/CCT Total # of Minutes Spent Total Time Spent with Patient: Total time spent is greater than 50% in coordination of care (as documented) at patient's floor/unit and/or counseling patient: Coding Level of Care Code 67381 SUB INP/OBS CARE 06/29MIN Diagnoses Pulmonary embolism on long-term anticoagulation therapy I26.99; Z79.01 Hematoma of chest wall S20.219A
[2024-01-30 08:18] LABS: Basophils # (auto) 0.02 K/uL (0.00-0.20); Basophils % (auto) 0.1 %; Eosinophils # (auto) 0.03 K/uL (0.00-0.50); Eosinophils % (auto) 0.1 %; Hematocrit (blood only) 27.5 % (42.0-52.0); Hemoglobin 8.7 g/dl (14.0-18.0); Immature Granulocytes # (auto) 0.14 K/uL (0.01-0.20); Immature Granulocytes % (auto) 0.6 %; Lymphocytes # (auto) 3.73 K/uL (1.20-3.40); Lymphocytes % (auto) 17.3 %; Mean Corpuscular Hgb Conc 31.6 g/dL (32.0-36.0); Mean Corpuscular Volume 101.1 fL (80.0-100.0); Mean Platelet Volume 10.5 fL (9.4-12.4); Monocytes # (auto) 1.89 K/uL (0.11-0.59); Monocytes % (auto) 8.8 %; Neutrophils # (auto) 15.74 K/uL (1.40-6.50); Neutrophils % (auto) 73.1 %; Platelet Count 212 K/uL (130-400); RDW Coefficient of Variation 17.2 % (11.5-14.5); RDW Standard Deviation 62.7 fL (36.4-46.3); Red Blood Count 2.72 M/uL (4.70-6.10); White Blood Count 21.55 K/ul (4.8-10.8)
[2024-01-30 08:38] LABS: BUN Creatinine Ratio 35.6 (10-20); Calcium 7.9 mg/dl (8.6-10.3); Creatinine Clr Calc Pharmacy 66.6 ml/min; Est GFR (African American) 67.6 ml/min; Est GFR (Non-African American) 58.3 ml/min; Potassium 4.6 mmol/L (3.5-5.1)
--- NOTE | 2024-01-30 12:06 | Surgery Progress Note ---
Date of Service January 30, 2024 Assessment & Plan (1) Hematoma of chest wall: Plan: Pt here w/ large hematoma of L chest/shoulder region hbg stable at 8.7 (8.5) vitals are stable Anticoagulation is on hold Can continue with ice packs to area as needed. Elevated LUE as much as possible to keep edema from the extremity Will need transfer to a tertiary center with IR capability if this shows evidence for further expansion and H/H instability No plans for surgical intervention, we will follow peripherally. call with questions/concerns Admission and Anticipated Discharge Date Admission Date: January 27, 2024 Supervising Physician Co-Signing Physician Notes Patient discussed with Meryl CHRISTIANSON, patient not available on rounds, agree with above. Chest wall hematoma, H&H stable, no indication for drainage at this time. Subjective Patient says "i guess i feel alright". no worsening pain in L chest/shoulder region. no complaints. Physical Exam Physical Exam: awake, sitting up in chair eating lunch Musculoskeletal: L chest/shoulder swelling, slightly tender to palpation, dependent ecchymosis in L axillary region Results & Data Vital Signs (Past 12 Hours) Vital Signs Temp Pulse Pulse Resp BP Pulse Ox O2 Del Method 01/30/24 11:06 97.7 F 76 18 136/71 95 Room Air 01/30/24 09:26 68 01/30/24 07:20 98.1 F 74 18 130/68 94 Room Air 01/30/24 03:13 97.9 F 69 18 147/77 H 95 Room Air PG Care Time/CCT Total # of Minutes Spent Total Time Spent with Patient: Total time spent is greater than 50% in coordination of care (as documented) at patient's floor/unit and/or counseling patient: Coding Level of Care Code 64293 SUB INP/OBS CARE 06/29MIN Diagnoses Hematoma of chest wall S20.219A
--- NOTE | 2024-01-30 13:34 | Hospitalist Progress Note ---
Date of Service January 30, 2024 Assessment & Plan (1) Hematoma of chest wall: Plan: -Left upper anterior chest wall and left shoulder area -Patient received reversal of AC in the ER upon admission -Lovenox is temporarily on hold. Pressure dressings in place. -General surgery consulted: Appreciate recommendations. Continue conservative measures- no acute intervention recommended. -Serial lab monitoring- CBC has regulated- 8.5->8.7 -Continue pain control measures- on 01/27 low-dose fentanyl patch was started. Unfortunately he is allergic to multiple pain medications including oxycodone, hydrocodone, and tramadol limiting options. Will wean Fentanyl as soon as able. -Monitor saturations closely (2) Pulmonary embolism on long-term anticoagulation therapy: Plan: -On last admission patient was discharged on Lovenox due to failed warfarin therapy for chronic nonocclusive and partially calcified emboli within the right lower lobe segmental pulmonary arteries and occluded subsegmental branch within the posterior basal right lower lobe pulmonary artery which was noted to be new on CTA of the chest 01/03/2024. -Lovenox is currently on hold. 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 - confirms that he is back to his normal baseline mental status after being started on systemic steroids. -Patient was on prednisone 50 mg daily on admission with plans to decreased by 10 mg every 5 days- decreased to 40 mg on 01/28- will need to decrease to 30 mg on 02/02. (4) Dysuria: Plan: -Urine analysis unremarkable. No evidence of UTI (5) Atrial fibrillation and flutter: Plan: -Currently in rate controlled sinus rhythm. -Holding anticoagulation with hematoma. -Will continue daily metoprolol succinate Plan Called and updated Spouse over the phone Admission and Anticipated Discharge Date Admission Date: January 27, 2024 Subjective Patient seen and evaluated bedside Patient reports soreness on the left anterior chest wall. Does feel it is very slowly improving but still present Discussed continuing to ice the area and elevate the ipsilateral upper extremity Spouse was updated over the phone Review of Systems Review of Systems: As indicated in HPI Physical Exam Physical Exam: General-alert and oriented, no fever HEENT-head atraumatic and normocephalic, extraocular muscles intact Neck-no lymphadenopathy or thyromegaly, trachea midline Chest-clear to auscultation. No rales, wheezing or rhonchi Cardiac-regular rate and rhythm, normal S1 and S2 Abdomen-normal bowel sounds, no hepatosplenomegaly Extremities-swelling and tenderness in the left anterior upper chest wall and left shoulder area. Neuro-cranial nerves II through XII intact, motor and sensory function within normal limits, strength symmetrical with generalized weakness, no focal deficits Psych-flat affect Results & Data Results & Data Vital Signs (Past 12 Hours) Vital Signs Temp Pulse Pulse Resp BP Pulse Ox O2 Del Method 01/30/24 11:06 36.5 C 76 18 136/71 95 Room Air 01/30/24 09:26 68 01/30/24 07:20 36.7 C 74 18 130/68 94 Room Air 01/30/24 03:13 36.6 C 69 18 147/77 H 95 Room Air PG Care Time/CCT Total # of Minutes Spent Total Time Spent with Patient: Total time spent is greater than 50% in coordination of care (as documented) at patient's floor/unit and/or counseling patient: Coding Level of Care Code 83024 SUB INP/OBS CARE 2/35MIN Diagnoses Hematoma of chest wall S20.219A Pulmonary embolism on long-term anticoagulation therapy I26.99; Z79.01 Encephalitis G04.90 Dysuria R30.0 Atrial fibrillation and flutter I48.91; I48.92
[2024-01-31 07:46] LABS: Basophils # (auto) 0.01 K/uL (0.00-0.20); Basophils % (auto) 0.1 %; Eosinophils # (auto) 0.01 K/uL (0.00-0.50); Eosinophils % (auto) 0.1 %; Hematocrit (blood only) 24.5 % (42.0-52.0); Hemoglobin 7.7 g/dl (14.0-18.0); Immature Granulocytes # (auto) 0.11 K/uL (0.01-0.20); Immature Granulocytes % (auto) 0.7 %; Lymphocytes # (auto) 2.49 K/uL (1.20-3.40); Lymphocytes % (auto) 16.5 %; Mean Corpuscular Hemoglobin 32.5 pg (25.0-34.0); Mean Corpuscular Hgb Conc 31.4 g/dL (32.0-36.0); Mean Corpuscular Volume 103.4 fL (80.0-100.0); Mean Platelet Volume 10.7 fL (9.4-12.4); Monocytes # (auto) 1.21 K/uL (0.11-0.59); Neutrophils # (auto) 11.22 K/uL (1.40-6.50); Neutrophils % (auto) 74.6 %; Platelet Count 131 K/uL (130-400); RDW Coefficient of Variation 17.4 % (11.5-14.5); RDW Standard Deviation 64.9 fL (36.4-46.3); Red Blood Count 2.37 M/uL (4.70-6.10); White Blood Count 15.05 K/ul (4.8-10.8)
[2024-01-31 08:00] LABS: Calcium 7.6 mg/dl (8.6-10.3); Creatinine Clr Calc Pharmacy 72.8 ml/min; Est GFR (African American) 75.3 ml/min; Est GFR (Non-African American) 64.9 ml/min; Potassium 4.6 mmol/L (3.5-5.1)
[2024-01-31 08:07] LABS: Macrocytosis Present; Polychromasia 1+; Tear Drop Cells 1+
[2024-01-31 08:54] LABS: Basophils # (auto) 0.01 K/uL (0.00-0.20); Basophils % (auto) 0.1 %; Eosinophils # (auto) 0.03 K/uL (0.00-0.50); Eosinophils % (auto) 0.2 %; Hemoglobin 8.3 g/dl (14.0-18.0); Immature Granulocytes # (auto) 0.09 K/uL (0.01-0.20); Immature Granulocytes % (auto) 0.6 %; Lymphocytes # (auto) 2.56 K/uL (1.20-3.40); Lymphocytes % (auto) 15.8 %; Mean Corpuscular Hgb Conc 30.7 g/dL (32.0-36.0); Mean Corpuscular Volume 104.2 fL (80.0-100.0); Mean Platelet Volume 10.4 fL (9.4-12.4); Monocytes # (auto) 1.25 K/uL (0.11-0.59); Monocytes % (auto) 7.7 %; Neutrophils # (auto) 12.27 K/uL (1.40-6.50); Neutrophils % (auto) 75.6 %; Platelet Count 166 K/uL (130-400); RDW Coefficient of Variation 17.3 % (11.5-14.5); RDW Standard Deviation 65.9 fL (36.4-46.3); Red Blood Count 2.59 M/uL (4.70-6.10); White Blood Count 16.21 K/ul (4.8-10.8)
--- NOTE | 2024-01-31 13:19 | Surgery Progress Note ---
Date of Service January 31, 2024 Assessment & Plan (1) Hematoma of chest wall: Plan: Resolving chest wall hematoma, H&H stable, symptoms improving No surgical intervention indicated at this time Surgery will sign off, call with questions or concerns Admission and Anticipated Discharge Date Admission Date: January 27, 2024 Subjective Multiple medical problems admitted with large left chest wall hematoma. He states that is feeling better and is slightly smaller in his opinion. Physical Exam Constitutional: WD/WN, vitals as above Skin: no rashes, warm and dry Large left upper chest resolving hematoma, ecchymosis overlying this. No erythema or skin necrosis present. No infection. Nonpulsatile not expanding. Results & Data Vital Signs (Past 12 Hours) Vital Signs Temp Pulse Pulse Resp BP Pulse Ox O2 Del Method 01/31/24 11:21 36.9 C 76 18 114/63 96 Room Air 01/31/24 09:00 63 01/31/24 08:00 Room Air 01/31/24 07:49 36.6 C 76 18 133/69 96 Room Air 01/31/24 02:47 36.9 C 68 18 117/60 96 Room Air PG Care Time/CCT Total # of Minutes Spent Total Time Spent with Patient: Total time spent is greater than 50% in coordination of care (as documented) at patient's floor/unit and/or counseling patient: Coding Level of Care Code 66906 SUB INP/OBS CARE 2/35MIN Diagnoses Hematoma of chest wall S20.219A
--- NOTE | 2024-01-31 15:06 | Hospitalist Progress Note ---
Date of Service January 31, 2024 Assessment & Plan (1) Hematoma of chest wall: Plan: -Left upper anterior chest wall and left shoulder area -Likely Lovenox/ anticoagulation induced chest wall hematoma -Patient received reversal of AC in the ER upon admission -Lovenox is temporarily on hold. Pressure dressings in place. -General surgery consulted: Appreciate recommendations. Continue conservative measures- no acute intervention recommended. -Serial lab monitoring- CBC has regulated- requires continued monitoring -Continue pain control measures- on 01/27 low-dose fentanyl patch was started. Unfortunately he is allergic to multiple pain medications including oxycodone, hydrocodone, and tramadol limiting options. Plan to wean Fentanyl as soon as able. -Monitor saturations closely (2) Acute blood loss anemia: Plan: -Anemia 2/2 to blood loss from hematoma of the left anterior chest well -Acute blood loss anemia -Follow up Iron panel, Ferritin levels for the AM- possibly iron supplementation (3) Pulmonary embolism on long-term anticoagulation therapy: Plan: -On last admission patient was discharged on Lovenox due to failed warfarin therapy for chronic nonocclusive and partially calcified emboli within the right lower lobe segmental pulmonary arteries and occluded subsegmental branch within the posterior basal right lower lobe pulmonary artery which was noted to be new on CTA of the chest 01/03/2024. -Lovenox is currently on hold. 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 - confirms that he is back to his normal baseline mental status after being started on systemic steroids. -Patient was on prednisone 50 mg daily on admission with plans to decreased by 10 mg every 5 days- decreased to 40 mg on 01/28- will need to decrease to 30 mg on 02/02. (5) Dysuria: Plan: -Urine analysis unremarkable. No evidence of UTI (6) Atrial fibrillation and flutter: Plan: -Currently in rate controlled sinus rhythm. -Holding anticoagulation with hematoma. -Will continue daily metoprolol succinate (7) Obesity: Plan: -Evidenced by BMI 43.3 -Counseled on diet and lifestyle modifications Plan Admission and Anticipated Discharge Date Admission Date: January 27, 2024 Subjective Patient seen and evaluated bedside Patient reports pain stable- slowly improving Denies acute complaints this AM H and H relatively stable Review of Systems Review of Systems: As indicated in HPI Physical Exam Physical Exam: General-alert and oriented, no fever HEENT-head atraumatic and normocephalic, extraocular muscles intact Neck-no lymphadenopathy or thyromegaly, trachea midline Chest-clear to auscultation. No rales, wheezing or rhonchi Cardiac-regular rate and rhythm, normal S1 and S2 Abdomen-normal bowel sounds, no hepatosplenomegaly Extremities-swelling and tenderness in the left anterior upper chest wall and left shoulder area. Neuro-cranial nerves II through XII intact, motor and sensory function within normal limits, strength symmetrical with generalized weakness, no focal deficits Psych-flat affect Results & Data Results & Data Vital Signs (Past 12 Hours) Vital Signs Temp Pulse Pulse Resp BP Pulse Ox O2 Del Method 01/31/24 11:21 36.9 C 76 18 114/63 96 Room Air 01/31/24 09:00 63 01/31/24 08:00 Room Air 01/31/24 07:49 36.6 C 76 18 133/69 96 Room Air PG Care Time/CCT Total # of Minutes Spent Total Time Spent with Patient: Total time spent is greater than 50% in coordination of care (as documented) at patient's floor/unit and/or counseling patient: Coding Level of Care Code 06274 SUB INP/OBS CARE 2/35MIN Diagnoses Hematoma of chest wall S20.219A Acute blood loss anemia D62 Pulmonary embolism on long-term anticoagulation therapy I26.99; Z79.01 Encephalitis G04.90 Dysuria R30.0 Atrial fibrillation and flutter I48.91; I48.92 Obesity E66.9
--- NOTE | 2024-02-01 04:02 | Electrocardiogram Report ---
Test Reason : Blood Pressure : */* mmHG Vent. Rate : 61 BPM Atrial Rate : 61 BPM P-R Int : 154 ms QRS Dur : 84 ms QT Int : 498 ms P-R-T Axes : 22 -23 -74 degrees QTcB Int : 501 ms Normal sinus rhythm Low voltage QRS T wave abnormality, consider inferolateral ischemia Prolonged QT Abnormal ECG When compared with ECG of 23-Jan-2024 08:15, Nonspecific T wave abnormality has replaced inverted T waves in Anterior leads Confirmed by Frida Wilde (Pauline) on 01/27/2024 2:10:19 PM Referred By: REFERRED SELF Confirmed By: Frida Wilde
[2024-02-01 08:41] LABS: Calcium 7.9 mg/dl (8.6-10.3); Potassium 4.4 mmol/L (3.5-5.1)
[2024-02-01 08:47] LABS: BUN Creatinine Ratio 36.3 (10-20); Est GFR (African American) 80.6 ml/min; Est GFR (Non-African American) 69.6 ml/min
[2024-02-01 09:52] LABS: Basophils # (auto) 0.01 K/uL (0.00-0.20); Basophils % (auto) 0.1 %; Eosinophils # (auto) 0.06 K/uL (0.00-0.50); Eosinophils % (auto) 0.4 %; Hemoglobin 8.1 g/dl (14.0-18.0); Immature Granulocytes # (auto) 0.06 K/uL (0.01-0.20); Immature Granulocytes % (auto) 0.4 %; Lymphocytes # (auto) 2.35 K/uL (1.20-3.40); Lymphocytes % (auto) 17.1 %; Mean Corpuscular Hemoglobin 32.9 pg (25.0-34.0); Mean Corpuscular Hgb Conc 32.4 g/dL (32.0-36.0); Mean Corpuscular Volume 101.6 fL (80.0-100.0); Mean Platelet Volume 10.1 fL (9.4-12.4); Monocytes # (auto) 1.08 K/uL (0.11-0.59); Monocytes % (auto) 7.9 %; Neutrophils # (auto) 10.17 K/uL (1.40-6.50); Neutrophils % (auto) 74.1 %; Platelet Count 169 K/uL (130-400); RDW Coefficient of Variation 16.8 % (11.5-14.5); RDW Standard Deviation 62.2 fL (36.4-46.3); Red Blood Count 2.46 M/uL (4.70-6.10); White Blood Count 13.73 K/ul (4.8-10.8)
--- NOTE | 2024-02-01 13:40 | Consultation ---
Date of Consultation February 01, 2024 Assessment & Plan (1) Pulmonary embolism: This patient has no active bleeding at this time. He does have atrial fib and mostly likely will need anticoagulation. He has no history of DVT of the lower extremities. He does not need a filter at this time. Filter placement will not help with treating his PE and spontaneous bleed in the chest wall. If he continues not to be a candidate for anticoagulation and develops an acute DVT of the lower extremities then a filter will be needed at that time. Thank you very much for letting us participate in the care of this patient. Acute cor pulmonale presence: unspecified Chronicity: acute Pulmonary embolism type: unspecified Qualified Code(s): I26.99 - Other pulmonary embolism without acute cor pulmonale History of Present Illness Reason for Consultation: PE, chest wall hematoma Attending Physician: Marizol Ramirez MD History of Present Illness This patient is a 78-year-old male with a past medical history significant for pulmonary embolism (failed warfarin therapy, recently on Lovenox), stage III melanoma started on pembrolizumab 01/12/2023, atrial fibrillation, stage III CKD. He presented to the ED on this admission from [facility] via EMS on 01/27/2024 due to concerns for chest pain and left-sided chest wall swelling. In the ED he developed significant hypotension with systolic to the 80's. Hgb decreased from 12.2 date of discharge to 10.7. The bleeding has since subsided. He has a history of PE in the past and a questionable small new PE in December of this year. His venous study of the lower extremities were negative at that time for DVT. Allergies Allergy/AdvReac Type Severity Reaction Status Date / Time gabapentin Allergy Intermediate Rash Verified 01/11/24 14:50 tramadol Allergy Intermediate Rash and Verified 01/11/24 14:50 itchiness hydrocodone Allergy Mild itchy Verified 01/11/24 14:50 oxycodone Allergy Mild itchy Verified 01/11/24 14:50 carbamazepine Allergy Unknown Unknown Verified 01/11/24 14:50 ciprofloxacin Allergy Unknown Unknown Verified 01/11/24 14:50 Home Medications Medication Instructions Recorded Confirmed Type enoxaparin 120 mg/0.8 mL 120 mg (0.8 mL) subcut Q12H 30 01/04/24 01/27/24 Rx subcutaneous syringe (Lovenox) days #48 mL metoprolol tartrate 25 mg tablet 25 mg PO BID #60 tabs 01/26/24 01/27/24 Rx acetaminophen 650 mg 650 mg PO Q4H PRN Pain 01/27/24 01/27/24 History tablet,extended release allopurinol 100 mg tablet 100 mg PO DAILY 01/27/24 01/27/24 History Patient History Medical History COVID-19 Osteoarthritis Surgical History History of left shoulder replacement History of right shoulder replacement History of total left knee replacement (TKR) History of total right knee replacement (TKR) with revision History of colonoscopy History of inguinal hernia repair History of cancer surgery Left side of neck resection + lymph node removal History of tooth extraction History of tonsillectomy and adenoidectomy History of sinus surgery History of cystoscopy History of cataract surgery bilateral History of back surgery L4-L5 with screws Family History Family/Other Diabetes Heart disease Nephrolithiasis Other No family history of adverse response to anesthesia Social History Smoking Status: Never smoker Second Hand Exposure: No; Do You Dip or Chew Tobacco: No; Tobacco Cessation Education Requested by Patient: No Hx Alcohol Use: No Hx Substance Use: No Preferred Language: Amharic Communication Ability: Effective 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 Required: No Beliefs That Will Affect Care: None Current Living Situation: Spouse current occupational status: retired Other Information That Helps Us Care for You: No Feels Safe at Home: Yes Safety Concerns: Feels Safe At This Time Seatbelt Use: always Assistive Devices: Cane and Walker Review of Systems Review of Systems: All systems reviewed & are unremarkable except as noted in HPI & below Physical Exam Constitutional: WD/WN, vitals as above Respiratory: normal respiratory effort; no respiratory distress Cardiovascular: Rate/Rhythm: regular rate and regular rhythm Extremities: normal capillary refill and + edema Neurologic: CN's II-XI intact bilaterally and moves all extremities Psychiatric: Orientation: alert and oriented x 3 Results & Data Vital Signs (Past 12 Hours) Vital Signs Temp Pulse Resp BP Pulse Ox O2 Del Method 02/01/24 11:02 36.8 C 77 16 119/63 95 Room Air 02/01/24 08:39 81 02/01/24 07:52 36.6 C 70 18 137/69 97 Room Air 02/01/24 03:03 36.6 C 78 18 148/79 H 95 Room Air
--- NOTE | 2024-02-01 19:08 | Hospitalist Progress Note ---
Date of Service February 01, 2024 Assessment & Plan (1) Hematoma of chest wall: Plan: -Left upper anterior chest wall and left shoulder area-spontaneous in the setting of therapeutic anticoagulation with Lovenox -Patient received reversal of AC in the ER upon admission Hemoglobin dropped from baseline of 12 prior to admission down to 7.7. He has not required blood transfusion and hemoglobin remained stable at 8.1 -Lovenox is temporarily on hold. Pressure dressings and frequent icing in place. -General surgery consulted: Appreciate recommendations. Continue conservative measures- no acute intervention recommended. -Continue pain control measures- on 01/27 low-dose fentanyl patch was started. Unfortunately he is allergic to multiple pain medications including oxycodone, hydrocodone, and tramadol limiting options. Plan to wean Fentanyl as soon as able-he was having severe pain prior to it being started so would recommend decreasing to 12 mcg patch in 1 week and then off 1 week after that-he has concerns about becoming dependent on opioids -Follow CBC in the morning -Will start Lovenox 40 Mg SQ once daily for DVT/PE prevention given his history of recurrent PEs in the setting of metastatic melanoma-this is as per my discussion with his oncologist (2) Acute blood loss anemia: Plan: -Anemia 2/2 to blood loss from hematoma of the left anterior chest well -Iron panel shows transferrin saturation mildly low at 15% and ferritin normal at 207 -Will add on iron supplementation (3) Constipated: Plan: Has only moved his bowels once in 1 week and is on fentanyl Add on daily MiraLAX and senna cot/docusate (4) Pulmonary embolism on long-term anticoagulation therapy: Plan: -On last admission patient was discharged on Lovenox due to failed warfarin therapy for chronic nonocclusive and partially calcified emboli within the right lower lobe segmental pulmonary arteries and occluded subsegmental branch within the posterior basal right lower lobe pulmonary artery which was noted to be new on CTA of the chest 01/03/2024. -Bilateral lower extremity Dopplers were negative at that time -Consult vascular surgery to see if IVC filter indicated-consultation appreciated-no indication for IVC filter at this time as he does not have a DVT or any active bleeding. -Lovenox is currently on hold. 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 - confirms that he is back to his normal baseline mental status after being started on systemic steroids. -Patient was on prednisone 50 mg daily on admission with plans to decreased by 10 mg every 5 days- decreased to 40 mg on 01/28- will need to decrease to 30 mg on 02/02. -Follow-up with oncology as an outpatient -Vitamin B1 level is still pending from previous admission as well-will follow- up on result when available -Continue Protonix for GI protection while on high-dose steroids (6) Dysuria: Plan: -Urine analysis unremarkable. No evidence of UTI (7) Atrial fibrillation and flutter: Plan: -Currently in rate controlled sinus rhythm. -Holding anticoagulation with hematoma. -Will continue daily metoprolol succinate (8) Obesity: Plan: -Evidenced by BMI 43.3 -Counseled on diet and lifestyle modifications (9) Elevated LFTs: Plan: LFTs elevated on admission and then improved by the next day -Could be from hemorrhagic shock-liver injury -Follow LFTs in the morning Plan Disposition-continued stay but if hemoglobin remained stable, can likely discharge to [facility] tomorrow Discussed care with and son at bedside on 01/31 Admission and Anticipated Discharge Date Admission Date: January 27, 2024 Subjective Patient reports ongoing pain in the left chest and shoulder area but improved from previous. He is fearful that he will become addicted to a fentanyl patch. Otherwise he has not moved his bowels he thinks in a week. No other concerns. Telemetry with normal sinus rhythm and rates in the 60s to 80s Physical Exam Constitutional: WD/WN, vitals as above + obese Respiratory: normal respiratory effort, lungs clear to auscultation Cardiovascular: RRR, no murmur, no edema Chest (Breasts): Chest: + abnormal inspection of chest (Large hematoma left chest wall and anterior shoulder) Gastrointestinal (Abdomen): normal bowel sounds, soft, nontender, no hepatosplenomegaly Psychiatric: A+Ox3, euthymic affect Results & Data Results & Data Vital Signs (Past 12 Hours) Vital Signs Temp Pulse Pulse Resp BP Pulse Ox O2 Del Method 02/01/24 16:00 36.7 C 70 18 126/62 96 Room Air 02/01/24 11:02 36.8 C 77 16 119/63 95 Room Air 02/01/24 08:39 81 02/01/24 08:00 60 02/01/24 07:52 36.6 C 70 18 137/69 97 Room Air Laboratory Results CBC, BMP, iron studies, blood cultures reviewed PG Care Time/CCT Total # of Minutes Spent Total Time Spent with Patient: Total time spent is greater than 50% in coordination of care (as documented) at patient's floor/unit and/or counseling patient: Coding Level of Care Code 07034 SUB INP/OBS CARE 2/35MIN Diagnoses Hematoma of chest wall S20.219A Acute blood loss anemia D62 Constipated K59.00 Pulmonary embolism on long-term anticoagulation therapy I26.99; Z79.01 Encephalitis G04.90 Dysuria R30.0 Atrial fibrillation and flutter I48.91; I48.92 Obesity E66.9 Elevated LFTs R79.89
[2024-02-01] MEDS: POLYETHYLENE (MIRALAX) 17 GM PACK PO SCH (20:14)
[2024-02-01] MEDS: DOCUSATE SODIUM/SENNA 50/8.6MG TAB PO SCH (20:15)
[2024-02-02 06:28] LABS: Calcium 7.8 mg/dl (8.6-10.3); Potassium 4.7 mmol/L (3.5-5.1)
[2024-02-02 06:34] LABS: Albumin Globulin Ratio 1.4 (0.9-2); Creatinine Clr Calc Pharmacy 74.1 ml/min; Est GFR (Non-African American) 66.4 ml/min; Globulin 2.2 gm/dl (2.5-4.0); Total Protein 5.2 gm/dl (6.0-8.3)
[2024-02-02 06:43] LABS: Hematocrit (blood only) 23.7 % (42.0-52.0); Hemoglobin 7.7 g/dl (14.0-18.0); Mean Corpuscular Hemoglobin 32.8 pg (25.0-34.0); Mean Corpuscular Hgb Conc 32.5 g/dL (32.0-36.0); Mean Corpuscular Volume 100.9 fL (80.0-100.0); Mean Platelet Volume 10.2 fL (9.4-12.4); Platelet Count 171 K/uL (130-400); RDW Coefficient of Variation 16.6 % (11.5-14.5); RDW Standard Deviation 61.5 fL (36.4-46.3); Red Blood Count 2.35 M/uL (4.70-6.10); White Blood Count 13.29 K/ul (4.8-10.8)
[2024-02-02 06:45] LABS: Basophils # (auto) 0.01 K/uL (0.00-0.20); Basophils % (auto) 0.1 %; Eosinophils # (auto) 0.03 K/uL (0.00-0.50); Eosinophils % (auto) 0.2 %; Immature Granulocytes % (auto) 0.8 %; Lymphocytes # (auto) 2.32 K/uL (1.20-3.40); Lymphocytes % (auto) 17.9 %; Monocytes # (auto) 0.95 K/uL (0.11-0.59); Monocytes % (auto) 7.3 %; Neutrophils # (auto) 9.56 K/uL (1.40-6.50); Neutrophils % (auto) 73.7 %
[2024-02-02 07:13] LABS: Polychromasia 1+; Tear Drop Cells 1+
[2024-02-02] MEDS: FERROUS SULFATE 325 MG TAB PO SCH (08:39)
[2024-02-02] MEDS: DOCUSATE SODIUM/SENNA 50/8.6MG TAB PO SCH (14:16)
[2024-02-02] MEDS: bisacodyL 10 MG SUPP PR STA (14:16)
--- NOTE | 2024-02-02 20:11 | Hospitalist Progress Note ---
Date of Service February 02, 2024 Assessment & Plan (1) Hematoma of chest wall: Plan: -Left upper anterior chest wall and left shoulder area-spontaneous in the setting of therapeutic anticoagulation with Lovenox -Patient received reversal of AC in the ER upon admission with protamine -His hemoglobin dropped from baseline of 12 prior to admission down to 7.7 where he remains fairly stable -Lovenox continues to be on hold. Will continue pressure dressings and applying ice to the area -General surgery consulted: Appreciate recommendations. Continue conservative measures- no acute intervention recommended. -Continue pain control measures- on 01/27 low-dose fentanyl patch was started. Unfortunately he is allergic to multiple pain medications including oxycodone, hydrocodone, and tramadol limiting options. Plan to wean Fentanyl as soon as able-he was having severe pain prior to it being started so would recommend decreasing to 12 mcg patch in 1 week and then off 1 week after that-he has concerns about becoming dependent on opioids -Follow CBC again in the morning and then likely every 2 to 3 days at rehab after discharge -Once hemoglobin remains stable for another day or so, will start Lovenox 40 Mg SQ once daily for DVT/PE prevention given his history of recurrent PEs in the setting of metastatic melanoma-this is as per my discussion with his oncologist (2) Acute blood loss anemia: Plan: -Anemia 2/2 to blood loss from hematoma of the left anterior chest well -Iron panel shows transferrin saturation mildly low at 15% and ferritin normal at 207 -Started on iron supplementation 325 mg p.o. 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 -Bilateral lower extremity Dopplers were negative at that time -Consult vascular surgery to see if IVC filter indicated-consultation appreciated-no indication for IVC filter at this time as he does not have a DVT or any active bleeding. -Lovenox is currently on hold. 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 - confirms that he is back to his normal baseline mental status after being started on systemic steroids. -Patient was on prednisone 50 mg daily on admission with plans to decreased by 10 mg every 5 days- decreased to 40 mg on 01/28- will now decrease to 30 mg on 02/02. -Follow-up with oncology as an outpatient -Vitamin B1 level is normal/high from previous admission -Continue Protonix for GI protection while on high-dose steroids (6) Dysuria: Plan: -Urine analysis unremarkable. No evidence of UTI (7) Atrial fibrillation and flutter: Plan: -Currently in rate controlled sinus rhythm. -Holding anticoagulation with hematoma. -Will continue daily metoprolol succinate (8) Obesity: Plan: -Evidenced by BMI 43.3 -Counseled on diet and lifestyle modifications (9) Elevated LFTs: Plan: LFTs elevated on admission and then improved by the next day and continued to be improving on repeat check -Could be from hemorrhagic shock induced-liver injury -Follow LFTs in the morning Plan Disposition-medically stable for discharge-awaiting insurance authorization for acute rehab at [facility] Admission and Anticipated Discharge Date Admission Date: January 27, 2024 Subjective Patient feeling like he is not doing as well today but cannot explain why. He is frustrated that he has not been able to move his bowels in a week. The pain is about the same today in the left chest wall as it was yesterday Otherwise no acute issues Telemetry with normal sinus rhythm and rates in the 60s to 90s Physical Exam Constitutional: WD/WN, vitals as above + obese Respiratory: normal respiratory effort, lungs clear to auscultation Cardiovascular: RRR, no murmur, no edema Chest (Breasts): Chest: + abnormal inspection of chest (Large hematoma left chest wall and anterior shoulder) Gastrointestinal (Abdomen): normal bowel sounds, soft, nontender, no hepatosplenomegaly Psychiatric: A+Ox3, euthymic affect Results & Data Results & Data Vital Signs (Past 12 Hours) Vital Signs Temp Pulse Resp BP Pulse Ox O2 Del Method 02/02/24 15:18 36.9 C 66 16 134/71 96 Room Air 02/02/24 11:24 36.3 C L 67 18 152/55 H 98 Room Air Laboratory Results CBC, CMP reviewed PG Care Time/CCT Total # of Minutes Spent Total Time Spent with Patient: Total time spent is greater than 50% in coordination of care (as documented) at patient's floor/unit and/or counseling patient: Coding Level of Care Code 91811 SUB INP/OBS CARE 2/35MIN Diagnoses Hematoma of chest wall S20.219A Acute blood loss anemia D62 Constipated K59.00 Pulmonary embolism on long-term anticoagulation therapy I26.99; Z79.01 Encephalitis G04.90 Dysuria R30.0 Atrial fibrillation and flutter I48.91; I48.92 Obesity E66.9 Elevated LFTs R79.89
[2024-02-03 06:59] LABS: Basophils # (auto) 0.01 K/uL (0.00-0.20); Basophils % (auto) 0.1 %; Eosinophils # (auto) 0.05 K/uL (0.00-0.50); Eosinophils % (auto) 0.4 %; Hemoglobin 8.3 g/dl (14.0-18.0); Immature Granulocytes # (auto) 0.06 K/uL (0.01-0.20); Immature Granulocytes % (auto) 0.5 %; Lymphocytes # (auto) 2.26 K/uL (1.20-3.40); Lymphocytes % (auto) 17.9 %; Mean Corpuscular Hemoglobin 32.8 pg (25.0-34.0); Mean Corpuscular Hgb Conc 31.9 g/dL (32.0-36.0); Mean Corpuscular Volume 102.8 fL (80.0-100.0); Mean Platelet Volume 9.7 fL (9.4-12.4); Monocytes # (auto) 0.84 K/uL (0.11-0.59); Monocytes % (auto) 6.7 %; Neutrophils # (auto) 9.38 K/uL (1.40-6.50); Neutrophils % (auto) 74.4 %; Platelet Count 165 K/uL (130-400); RDW Coefficient of Variation 16.2 % (11.5-14.5); RDW Standard Deviation 61.6 fL (36.4-46.3); Red Blood Count 2.53 M/uL (4.70-6.10)
[2024-02-03 07:34] LABS: Albumin Globulin Ratio 1.3 (0.9-2); Albumin Level 3.1 gm/dl (3.4-5.0); BUN Creatinine Ratio 35.5 (10-20); Bilirubin,Total 1.1 mg/dl (0.2-1.0); Creatinine Clr Calc Pharmacy 80.5 ml/min; Est GFR (African American) 90.2 ml/min; Est GFR (Non-African American) 77.8 ml/min; Globulin 2.3 gm/dl (2.5-4.0); Potassium 4.5 mmol/L (3.5-5.1); Total Protein 5.4 gm/dl (6.0-8.3)
[2024-02-03] MEDS: predniSONE 10 MG TABLET PO SCH (08:11)
[2024-02-03] MEDS: SENNA 8.6 MG TAB PO ONE (14:57)
--- NOTE | 2024-02-03 18:32 | Hospitalist Progress Note ---
Date of Service February 03, 2024 Assessment & Plan (1) Hematoma of chest wall: Plan: -Left upper anterior chest wall and left shoulder area-spontaneous in the setting of therapeutic anticoagulation with Lovenox -Patient received reversal of AC in the ER upon admission with protamine -His hemoglobin dropped from baseline of 12 prior to admission down to 7.7 and now back up to 8.3 -Lovenox continues to be on hold. Will continue pressure dressings and applying ice to the area -General surgery consulted: Appreciate recommendations. Continue conservative measures- no acute intervention recommended. -Continue pain control measures- on 01/27 low-dose fentanyl patch was started. Unfortunately he is allergic to multiple pain medications including oxycodone, hydrocodone, and tramadol limiting options. Plan to wean Fentanyl as soon as able-he was having severe pain prior to it being started so would recommend decreasing to 12 mcg patch in 1 week and then off 1 week after that-he has concerns about becoming dependent on opioids -Follow CBC again in the morning and then likely every 2 to 3 days at rehab after discharge -Once hemoglobin remains stable for another day, will start Lovenox 40 Mg SQ once daily for DVT/PE prevention given his history of recurrent PEs in the setting of metastatic melanoma-this is as per my discussion with his oncologist (2) Acute blood loss anemia: Plan: -Anemia 2/2 to blood loss from hematoma of the left anterior chest well -Iron panel shows transferrin saturation mildly low at 15% and ferritin normal at 207 -Started on iron supplementation 325 mg p.o. twice daily -Macrocytic anemia-B12, folate normal recently, TSH recently normal On review of previous labs, he has a mildly elevated free kappa and lambda light chains from last admission-I sent a message to his oncologist, Dr. 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 -Bilateral lower extremity Dopplers were negative at that time -Consult vascular surgery to see if IVC filter indicated-consultation appreciated-no indication for IVC filter at this time as he does not have a DVT or any active bleeding. -Lovenox is currently on hold. 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 - confirms that he is back to his normal baseline mental status after being started on systemic steroids. -Patient was on prednisone 50 mg daily on admission with plans to decreased by 10 mg every 5 days- decreased to 40 mg on 01/28- will now decrease to 30 mg on 02/02. -Follow-up with oncology as an outpatient -Vitamin B1 level is normal/high from previous admission -Continue Protonix for GI protection while on high-dose steroids (6) Atrial fibrillation and flutter: Plan: -Remains in rate controlled sinus rhythm. -Holding anticoagulation with hematoma. -Will continue daily metoprolol succinate (7) Obesity: Plan: -Evidenced by BMI 43.3 -Counseled on diet and lifestyle modifications (8) Elevated LFTs: Plan: LFTs elevated on admission and then improved by the next day and continued to be improving/stable on repeat check -Could be from hemorrhagic shock induced-liver injury -Follow LFTs in the morning Plan Disposition-medically stable for discharge-awaiting insurance authorization for acute rehab at [facility], can downgrade to medical/surgical unit tomorrow if no discharge Admission and Anticipated Discharge Date Admission Date: January 27, 2024 Subjective Patient had a good amount of bowel movement today and feels much better. Otherwise pain is controlled and the chest. No shortness of breath. In better spirits today Telemetry with normal sinus rhythm with rates in the 60s Physical Exam Constitutional: WD/WN, vitals as above + obese Respiratory: normal respiratory effort, lungs clear to auscultation Cardiovascular: RRR, no murmur, no edema Chest (Breasts): Chest: + abnormal inspection of chest (Large hematoma left chest wall and anterior shoulder) Gastrointestinal (Abdomen): normal bowel sounds, soft, nontender, no hepato splenomegaly Psychiatric: A+Ox3, euthymic affect Results & Data Results & Data Vital Signs (Past 12 Hours) Vital Signs Temp Pulse Pulse Resp BP Pulse Ox O2 Del Method 02/03/24 16:00 36.6 C 70 18 144/69 H 96 Room Air 02/03/24 14:23 72 02/03/24 11:56 36.5 C 82 16 151/70 H 97 Room Air 02/03/24 07:36 36.6 C 79 18 148/66 H 95 Room Air 02/03/24 07:18 59 L Laboratory Results CBC, CMP reviewed PG Care Time/CCT Total # of Minutes Spent Total Time Spent with Patient: Total time spent is greater than 50% in coordination of care (as documented) at patient's floor/unit and/or counseling patient: Coding Level of Care Code 51464 SUB INP/OBS CARE 06/29MIN Diagnoses Hematoma of chest wall S20.219A Acute blood loss anemia D62 Constipated K59.00 Pulmonary embolism on long-term anticoagulation therapy I26.99; Z79.01 Encephalitis G04.90 Atrial fibrillation and flutter I48.91; I48.92 Obesity E66.9 Elevated LFTs R79.89
[2024-02-04 09:18] LABS: Basophils # (auto) 0.01 K/uL (0.00-0.20); Basophils % (auto) 0.1 %; Eosinophils # (auto) 0.15 K/uL (0.00-0.50); Eosinophils % (auto) 1.4 %; Hematocrit (blood only) 27.5 % (42.0-52.0); Hemoglobin 8.9 g/dl (14.0-18.0); Immature Granulocytes # (auto) 0.05 K/uL (0.01-0.20); Immature Granulocytes % (auto) 0.5 %; Lymphocytes # (auto) 2.43 K/uL (1.20-3.40); Lymphocytes % (auto) 22.5 %; Mean Corpuscular Hemoglobin 33.2 pg (25.0-34.0); Mean Corpuscular Hgb Conc 32.4 g/dL (32.0-36.0); Mean Corpuscular Volume 102.6 fL (80.0-100.0); Mean Platelet Volume 9.6 fL (9.4-12.4); Monocytes # (auto) 0.55 K/uL (0.11-0.59); Monocytes % (auto) 5.1 %; Neutrophils # (auto) 7.62 K/uL (1.40-6.50); Neutrophils % (auto) 70.4 %; Platelet Count 153 K/uL (130-400); RDW Standard Deviation 60.5 fL (36.4-46.3); Red Blood Count 2.68 M/uL (4.70-6.10); White Blood Count 10.81 K/ul (4.8-10.8)
[2024-02-04 09:35] LABS: Albumin Level 3.3 gm/dl (3.4-5.0); BUN Creatinine Ratio 30.9 (10-20); Bilirubin Direct 0.3 mg/dl (0-0.2); Bilirubin,Total 1.2 mg/dl (0.2-1.0); Calcium 8.1 mg/dl (8.6-10.3); Creatinine Clr Calc Pharmacy 79.6 ml/min; Est GFR (Non-African American) 76.8 ml/min; Total Protein 5.6 gm/dl (6.0-8.3)
[2024-02-04] MEDS: ENOXAPARIN INJ 40 MG/0.4 ML SYR SQ SCH (14:19)
--- NOTE | 2024-02-04 17:59 | Hospitalist Progress Note ---
Date of Service February 04, 2024 Assessment & Plan (1) Hematoma of chest wall: Plan: Left upper anterior chest wall and left shoulder area-spontaneous in the setting of therapeutic anticoagulation with Lovenox Patient received reversal of AC in the ER upon admission with protamine His hemoglobin dropped from baseline of 12 prior to admission down to emelyn of 7.7 and now continues to trend back up to 8.9 Therapeutic dosing of Lovenox has been on hold. Will continue pressure dressings and applying ice to the area General surgery consulted: Appreciate recommendations. Continue conservative measures- no acute intervention recommended. Continue pain control with low-dose fentanyl patch as he is allergic to multiple pain medications including oxycodone, hydrocodone, and tramadol limiting options. 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 twice daily Macrocytic anemia-B12, folate normal recently, TSH recently normal On review of previous labs, he has a mildly elevated free kappa and lambda light chains from last admission-I sent a message to his oncologist, Dr. 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 Bilateral lower extremity Dopplers were negative at that time Consulted vascular surgery to see if IVC filter indicated-consultation appreciated-no indication for IVC filter at this time as he does not have a DVT or any active bleeding. 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 confirms that he is back to his normal baseline mental status after being started on systemic steroids. Continue on high-dose prednisone with taper down by 10 mg every 5 days- decreased to 30 mg on 02/02-plan to decrease to 20 mg on 02/07 Follow-up with oncology as an outpatient Vitamin B1 level is normal/high from previous admission Continue Protonix for GI protection while on high-dose steroids (6) Atrial fibrillation and flutter: Plan: Remains in rate controlled sinus rhythm Holding anticoagulation with hematoma Will continue daily metoprolol succinate Can transfer off telemetry (7) Obesity: Plan: Evidenced by BMI 43.3 Counseled on diet and lifestyle modifications (8) Elevated LFTs: Plan: LFTs elevated on admission and then improved by the next day and continued to be improving/stable on repeat check Right upper quadrant ultrasound on 01/17/2024 shows mild marginal nodularity and increased parenchymal echogenicity of the liver Could be from hemorrhagic shock induced-liver injury in the setting of likely fatty liver disease with early cirrhosis Continue to follow LFTs until normalized Plan Disposition-medically stable for discharge-awaiting insurance authorization for acute rehab at [facility], can downgrade to medical/surgical unit today Discussed care with at the bedside on 02/03 Admission and Anticipated Discharge Date Admission Date: January 27, 2024 Subjective Patient feels the pain in his left chest and shoulder area is controlled, he is in good spirits. He is eating and drinking, continues to move his bowels regularly now. No other complaints. He is ambulating in the halls with assistance Telemetry with normal sinus rhythm and rates in the 50s to 60s, PACs Physical Exam Constitutional: WD/WN, vitals as above + obese Respiratory: normal respiratory effort, lungs clear to auscultation Cardiovascular: RRR, no murmur, no edema Chest (Breasts): Chest: + abnormal inspection of chest (Large hematoma left chest wall and anterior shoulder) Gastrointestinal (Abdomen): normal bowel sounds, soft, nontender, no hepatosplenomegaly Psychiatric: A+Ox3, euthymic affect Results & Data Results & Data Vital Signs (Past 12 Hours) Vital Signs Temp Pulse Pulse Resp BP Pulse Ox O2 Del Method 02/04/24 15:20 36.9 C 82 18 137/74 96 Room Air 02/04/24 15:20 Room Air 02/04/24 11:38 55 L 02/04/24 11:00 36.5 C 78 20 130/70 96 Room Air 02/04/24 07:33 36.6 C 74 18 128/63 98 Room Air Laboratory Results CBC, CMP reviewed PG Care Time/CCT Total # of Minutes Spent Total Time Spent with Patient: Total time spent is greater than 50% in coordination of care (as documented) at patient's floor/unit and/or counseling patient: Coding Level of Care Code 39656 SUB INP/OBS CARE 2/35MIN Diagnoses Hematoma of chest wall S20.219A Acute blood loss anemia D62 Constipated K59.00 Pulmonary embolism on long-term anticoagulation therapy I26.99; Z79.01 Encephalitis G04.90 Atrial fibrillation and flutter I48.91; I48.92 Obesity E66.9 Elevated LFTs R79.89
[2024-02-05] MEDS: LIDOCAINE 4% CREAM 15 GM TUBE EXT ONE (00:27)
[2024-02-05 07:05] LABS: Basophils # (auto) 0.01 K/uL (0.00-0.20); Basophils % (auto) 0.1 %; Eosinophils # (auto) 0.09 K/uL (0.00-0.50); Eosinophils % (auto) 0.8 %; Hematocrit (blood only) 27.6 % (42.0-52.0); Hemoglobin 8.5 g/dl (14.0-18.0); Immature Granulocytes # (auto) 0.05 K/uL (0.01-0.20); Immature Granulocytes % (auto) 0.4 %; Lymphocytes # (auto) 2.38 K/uL (1.20-3.40); Lymphocytes % (auto) 21.1 %; Mean Corpuscular Hemoglobin 31.6 pg (25.0-34.0); Mean Corpuscular Hgb Conc 30.8 g/dL (32.0-36.0); Mean Corpuscular Volume 102.6 fL (80.0-100.0); Mean Platelet Volume 9.5 fL (9.4-12.4); Monocytes % (auto) 5.3 %; Neutrophils # (auto) 8.17 K/uL (1.40-6.50); Neutrophils % (auto) 72.3 %; Platelet Count 144 K/uL (130-400); RDW Standard Deviation 60.1 fL (36.4-46.3); Red Blood Count 2.69 M/uL (4.70-6.10)
[2024-02-05 07:24] LABS: Albumin Globulin Ratio 1.5 (0.9-2); Albumin Level 3.2 gm/dl (3.4-5.0); Bilirubin,Total 1.1 mg/dl (0.2-1.0); Calcium 8.2 mg/dl (8.6-10.3); Creatinine Clr Calc Pharmacy 82.2 ml/min; Est GFR (African American) 92.6 ml/min; Est GFR (Non-African American) 79.9 ml/min; Globulin 2.2 gm/dl (2.5-4.0); Magnesium 1.6 mg/dl (1.7-2.4); Potassium 4.2 mmol/L (3.5-5.1); Total Protein 5.4 gm/dl (6.0-8.3)
[2024-02-05] MEDS: MAGNESIUM SULFATE / D5W 1 GM/100 ML BAG IV ONE (09:23)
--- NOTE | 2024-02-05 13:38 | Hospitalist Progress Note ---
Date of Service February 05, 2024 Assessment & Plan (1) Hematoma of chest wall: Plan: Left upper anterior chest wall and left shoulder area-spontaneous in the setting of therapeutic anticoagulation with Lovenox Patient received reversal of Lovenox in the ER upon admission with protamine His hemoglobin dropped from baseline of 12 prior to admission down to emelyn of 7.7 and now continues to trend back up to 8.5 Therapeutic dosing of Lovenox has been on hold, but has since restarted DVT prophylactic dose of 40 mg daily. Will continue pressure dressings and applying ice to the area General surgery consulted: Appreciate recommendations. Continue conservative me asures- no acute intervention recommended. Continue pain control with low-dose fentanyl patch-he is allergic to oxycodone, hydrocodone, and tramadol Plan to wean Fentanyl as soon as able-he was having severe pain prior to it being started so would recommend decreasing to 12 mcg patch in 1 week and then off 1 week after that-he has concerns about becoming dependent on opioids Follow CBC daily while in the hospital and then likely every 2 to 3 days at rehab after discharge Now that hemoglobin has remained stable to improved for the last several days, started Lovenox 40 Mg SQ once daily for DVT/PE prevention on 02/03 no problem! 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 twice daily Macrocytic anemia-B12, folate normal recently, TSH recently normal On review of previous labs, he has a mildly elevated free kappa and lambda light chains from last admission-I sent a message to his oncologist, Dr. 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 Bilateral lower extremity Dopplers were negative at that time Consulted vascular surgery to see if IVC filter indicated-consultation appreciated-no indication for IVC filter at this time as he does not have a DVT or any active bleeding. Resumed prophylactic dosing of Lovenox only at 40 mg daily on 02/03 (5) Encephalitis: Plan: Recently diagnosed with checkpoint inhibitor and used encephalitis during his recent admission this past month. confirms that he is completely back to his normal baseline mental status after being started on systemic steroids. Continue on high-dose prednisone with taper down by 10 mg every 5 days- decreased to 30 mg on 02/02-plan to decrease to 20 mg on 02/07 Follow-up with oncology as an outpatient Vitamin B1 level is normal/high from previous admission Continue Protonix for GI protection while on high-dose steroids (6) Atrial fibrillation and flutter: Plan: Remained in rate controlled sinus rhythm throughout this hospital stay Holding anticoagulation with hematoma except for DVT prophylactic dose of Lovenox Will continue daily metoprolol succinate Has since been transferred off telemetry (7) Obesity: Plan: Evidenced by BMI 43.3 Counseled on diet and lifestyle modifications (8) Elevated LFTs: Plan: LFTs elevated on admission and then improved by the next day and continued to be improving/stable on repeat check Right upper quadrant ultrasound on 01/17/2024 shows mild marginal nodularity and increased parenchymal echogenicity of the liver Could be from hemorrhagic shock induced-liver injury in the setting of likely fatty liver disease with early cirrhosis Continue to follow LFTs until normalized Plan Disposition-medically stable for discharge-awaiting insurance authorization for acute rehab at [facility]. I attempted to do a peer to peer appeal for acute rehab authorization on 02/04 but the insurance office was closed. I was told the peer to peer has to be completed by noon on 02/05. I left my cell phone number for the insurance to call me back, but attempts should be made to call the insurance again on the morning of 02/05 at , option 5 His ID number is [id number] Discussed care with at the bedside on 02/03 and by phone on 02/04 Admission and Anticipated Discharge Date Admission Date: January 27, 2024 Subjective Patient feeling well today. He did have some pain last night in the chest and shoulder area from the hematoma which worried him but I reassured him that his hemoglobin was stable. Otherwise, he is feeling more stable on his feet and wonders if he can go home if denied rehab by his insurance. Denies shortness of breath or lightheadedness. He is moving his bowels regularly and eating. Physical Exam Constitutional: WD/WN, vitals as above + obese Respiratory: normal respiratory effort, lungs clear to auscultation Cardiovascular: RRR, no murmur, no edema Chest (Breasts): Chest: + abnormal inspection of chest (Large hematoma left chest wall and anterior shoulder) Gastrointestinal (Abdomen): normal bowel sounds, soft, nontender, no hepatosplenomegaly Skin: Large areas of ecchymosis especially down left flank and lower back, also a small hematoma and ecchymosis in the right flank Psychiatric: A+Ox3, euthymic affect Results & Data Results & Data Vital Signs (Past 12 Hours) Vital Signs Temp Pulse Resp BP Pulse Ox O2 Del Method 02/05/24 07:44 36.7 C 70 16 125/69 94 Room Air Laboratory Results CBC, BMP, LFTs, magnesium reviewed PG Care Time/CCT Total # of Minutes Spent Total Time Spent with Patient: Total time spent is greater than 50% in coordination of care (as documented) at patient's floor/unit and/or counseling patient: Coding Level of Care Code 19470 SUB INP/OBS CARE 2/35MIN Diagnoses Hematoma of chest wall S20.219A Acute blood loss anemia D62 Constipated K59.00 Pulmonary embolism on long-term anticoagulation therapy I26.99; Z79.01 Encephalitis G04.90 Atrial fibrillation and flutter I48.91; I48.92 Obesity E66.9 Elevated LFTs R79.89
[2024-02-06 07:31] VITALS: BP 130/68; RESP 18; TEMP 97.7; O2SAT 97
[2024-02-06 12:13] LABS: Eosinophils # (auto) 0.03 K/uL (0.00-0.50); Eosinophils % (auto) 0.3 %; Hematocrit (blood only) 25.6 % (42.0-52.0); Hemoglobin 8.4 g/dl (14.0-18.0); Immature Granulocytes # (auto) 0.05 K/uL (0.01-0.20); Immature Granulocytes % (auto) 0.5 %; Lymphocytes # (auto) 0.98 K/uL (1.20-3.40); Lymphocytes % (auto) 9.5 %; Mean Corpuscular Hemoglobin 33.5 pg (25.0-34.0); Mean Corpuscular Hgb Conc 32.8 g/dL (32.0-36.0); Mean Platelet Volume 9.7 fL (9.4-12.4); Monocytes # (auto) 0.34 K/uL (0.11-0.59); Monocytes % (auto) 3.3 %; Neutrophils # (auto) 8.94 K/uL (1.40-6.50); Neutrophils % (auto) 86.4 %; Platelet Count 125 K/uL (130-400); RDW Coefficient of Variation 16.3 % (11.5-14.5); RDW Standard Deviation 60.3 fL (36.4-46.3); Red Blood Count 2.51 M/uL (4.70-6.10); White Blood Count 10.34 K/ul (4.8-10.8)
[2024-02-06 12:34] LABS: Calcium 7.9 mg/dl (8.6-10.3); Magnesium 1.6 mg/dl (1.7-2.4); Potassium 4.2 mmol/L (3.5-5.1)
[2024-02-06 12:40] LABS: BUN Creatinine Ratio 29.2 (10-20); Creatinine Clr Calc Pharmacy 77.8 ml/min; Est GFR (African American) 86.8 ml/min; Est GFR (Non-African American) 74.9 ml/min
--- NOTE | 2024-02-06 13:26 | Discharge Summary ---
Discharge Summary Date of Service February 06, 2024 Principal Dx & Hospital Course #1 = Principal Diagnosis (1) Hematoma of chest wall: Left upper anterior chest wall and left shoulder area-spontaneous in the setting of therapeutic anticoagulation with Lovenox Patient received reversal of Lovenox in the ER upon admission with protamine His hemoglobin dropped from baseline of 12 prior to admission down to emelyn of 7.7 and now continues to trend back up to 8.5 Therapeutic dosing of Lovenox has been on hold, but has since restarted DVT prophylactic dose of 40 mg daily. Will continue pressure dressings and applying ice to the area General surgery consulted: Appreciate recommendations. Continue conservative measures- no acute intervention recommended. Continue pain control with low-dose fentanyl patch-he is allergic to oxycodone, hydrocodone, and tramadol Plan to wean Fentanyl as soon as able-he was having severe pain prior to it being started so would recommend decreasing to 12 mcg patch in 1 week and then off 1 week after that-he has concerns about becoming dependent on opioids Follow CBC daily while in the hospital and then likely every 2 to 3 days at rehab after discharge Now that hemoglobin has remained stable to improved for the last several days, started Lovenox 40 Mg SQ once daily for DVT/PE prevention on 02/03 no problem! Clifton Alan is taking over my patients tomorrow just FYI (given his history of recurrent PEs in the setting of metastatic melanoma-this is as per my discussion with his oncologist) (2) Acute blood loss anemia: Anemia 2/2 to blood loss from hematoma of the left anterior chest well Iron panel shows transferrin saturation mildly low at 15% and ferritin normal at 207 Started on iron supplementation 325 mg p.o. twice daily Macrocytic anemia-B12, folate normal recently, TSH recently normal On review of previous labs, he has a mildly elevated free kappa and lambda light chains from last admission-I sent a message to his oncologist, Dr. Johnson, to inform her of these results so she can follow-up with him at discharge (3) Constipated: Secondary to hospitalization, and starting on fentanyl-now moving bowels regularly since 02/02 after numerous laxatives added Continue daily MiraLAX and sennakot/docusate twice daily (4) Pulmonary embolism on long-term anticoagulation therapy: On last admission patient was discharged on Lovenox due to failed warfarin therapy for chronic nonocclusive and partially calcified emboli within the right lower lobe segmental pulmonary arteries and occluded subsegmental branch within the posterior basal right lower lobe pulmonary artery which was noted to be new on CTA of the chest 01/03/2024. Bilateral lower extremity Dopplers were negative at that time Consulted vascular surgery to see if IVC filter indicated-consultation appreciated-no indication for IVC filter at this time as he does not have a DVT or any active bleeding. 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 confirms that he is completely back to his normal baseline mental status after being started on systemic steroids. Continue on high-dose prednisone with taper down by 10 mg every 5 days- decreased to 30 mg on 02/02-plan to decrease to 20 mg on 02/07 Follow-up with oncology as an outpatient Vitamin B1 level is normal/high from previous admission Continue Protonix for GI protection while on high-dose steroids (6) Atrial fibrillation and flutter: Remained in rate controlled sinus rhythm throughout this hospital stay Holding anticoagulation with hematoma except for DVT prophylactic dose of Lovenox Will continue daily metoprolol succinate Has since been transferred off telemetry (7) Obesity: Evidenced by BMI 43.3 Counseled on diet and lifestyle modifications (8) Elevated LFTs: LFTs elevated on admission and then improved by the next day and continued to be improving/stable on repeat check Right upper quadrant ultrasound on 01/17/2024 shows mild marginal nodularity and increased parenchymal echogenicity of the liver Could be from hemorrhagic shock induced-liver injury in the setting of likely fatty liver disease with early cirrhosis Continue to follow LFTs until normalized Plan I called [facility] this morning but they never returned my call. The patient will be discharged home with home health services. Metoprolol tartrate has been switched to metoprolol succinate. Lovenox dosage has been decreased to 40 mg once daily. He will continue to use the low-dose fentanyl patch every 3 days for chronic pain control Admission HPI Per Admitting Provider Tio is a 78-year-old male with a past medical history significant for pulmonary embolism (failed warfarin therapy, recently on Lovenox), stage III melanoma started on pembrolizumab 01/12/2023, atrial fibrillation, stage III CKD, recently prolonged admission from 01/11/2024 to 01/26/2024 for metabolic encephalopathy thought to be due to checkpoint inhibitor encephalitis along with septic shock from lower extremity cellulitis who [facility] to [facility] on 01/27/2024 due to concerns for chest pain and left-sided chest wall swelling. He initially remained stable while in the ED but later developed hypotension with blood pressure as low as 80/66. Labs were significant for leukocytosis of 23 with neutrophil predominance of 14, hemoglobin of 11.8, BUN of 48, AST of 150, ALT of 155, total bili of 1.4, initial high-sensitivity troponin of 31, and COVID-[address] of the chest with IV contrast noted a mass of 17.8 x 13 x 13.6 cm left pectoralis muscle hematoma with a fluid level and with corresponding/surrounding left chest wall soft tissue edema/subcutaneous fat stranding demonstrated, most likely a complication and anticoagulant therapy. Posteriorly left lower lung lobe consolidative infiltrates with a small left pleural effusion seen. Patient was initially a dose of cefepime 1 g IV Tylenol, 50 mg protamine sulfate, 50 mcg IV fentanyl, and 750 mL NSS. ED spoke with interventional radiology at [facility] who recommended applying pressure with repeat CT chest in 8 hours. Patient's blood pressure stabilized during this time with hemoglobin dropping from 11.8 on arrival to 10.7. Repeat CT of the chest without IV contrast was read as "again seen is a large hematoma in the left anterior chest wall centered in the pectoralis muscle. There is surrounding edema/infiltration within the left chest wall. Hematoma contents hematocrit level and has increased in size from today's earlier examination. Active extravasation was shown on the prior contrast-enhanced study. Small left and trace right pleural effusions with dependent consolidation. Advanced coronary artery atherosclerosis. Cirrhotic liver morphology and small volume upper abdominal ascites. A pleural-based lesion in the anterior right lung has been present dating back to 2014. Again seen is aneurysmal dilation of the ascending thoracic aorta which measures up to 4.8 cm diameter". The ED again spoke to interventional radiology at [facility] who felt as though the patient was experiencing a venous bleed rather than arterial and could remain in her facility with ongoing monitoring and application of pressure bandaging. Patient was lying in bed in no acute distress at the time of exam with his sitting bedside, history is obtained from both. Patient's confirms that the patient is back to his normal mental status since being started on oral steroids during his last admission. The patient states that he started to develop minor left shoulder discomfort prior to discharge on 01/26/2024. This continued to progress while at [facility] along with left shoulder swelling. Pain is currently controlled and he denies feeling short of breath. No recent fever, chills, cough, nausea/vomiting, abdominal pain, hematuria, melena, diarrhea, recent trauma. When asked, he did experience some dysuria earlier this morning. We discussed CODE STATUS, and after having a long and difficult admission recently the patient and his agree that he wishes to be a DNR/DNI at this time moving forward. He would want his to make medical decisions for him if he cannot make them himself Please refer to Dr. Farah's attestation for any changes to the treatment plan Discharge Exam General-alert and oriented x3, no fever, no chills HEENT-head atraumatic and normocephalic, pupils equal and reactive to light, extraocular muscles intact Neck-no lymphadenopathy or thyromegaly, trachea midline Chest-clear to auscultation. No rales, wheezing or rhonchi Cardiac-regular rate and rhythm, normal S1 and S2 Abdomen-normal bowel sounds, no hepatosplenomegaly Extremities-stable hematoma left upper anterior chest wall extending to the left shoulder Neuro-cranial nerves II through XII intact, motor and sensory function within normal limits, strength symmetrical, no focal deficits Psych-normal affect, normal mood Discharge Plan Discharge Items Patient Disposition: Home - Home Health Services Reason For Visit: LARGE LEFT SHOULDER HEMATOMA, ELEVATED LFT'S Discharge Diagnosis: Left anterior upper chest soft tissue hemorrhage with hematoma, transaminitis Activity: Resume your previous activity Non-emergency contact: Primary Care Provider Call non-emergency contact if: your symptoms worsen Follow-up/Referrals: Stef Encarnacion MD [Primary Care Provider] - Diet: Regular and Heart Healthy Addtl Attending Provider Instructions: Lovenox dosage has been decreased to 40 mg once a day. Metoprolol tartrate has been switched to metoprolol succinate. Continue fentanyl patch for pain control and change patch every 3 days Pending Studies at Discharge: No Stand-Alone Forms: My Xpreso, Smoking Cessation Medications and DC Order Prescriptions: New ferrous sulfate 325 mg (65 mg iron) Tablet,Delayed Release (Dr/Ec) 325 mg PO BIDM Qty: 60 0RF enoxaparin [Lovenox] 40 mg/0.4 mL Syringe 40 mg subcut Q24H Qty: 30 0RF metoprolol succinate 50 mg Tablet Extended Release 24 Hr 50 mg PO QAM Qty: 30 0RF sennosides-docusate sodium [Senokot-S] 8.6-50 mg Tablet 1 tab PO BID Qty: 60 0RF fentanyl 25 mcg/hr Patch 72 Hour 1 patch transdermal Q3D Qty: 10 0RF polyethylene glycol 3350 [Miralax] 17 gram Powder In Packet 17 g PO DAILY Qty: 30 0RF prednisone 10 mg Tablet 30 mg PO DAILY Qty: 30 0RF Continued allopurinol 100 mg tablet 100 mg PO DAILY acetaminophen 650 mg Tablet Extended Release 650 mg PO Q4H PRN (Reason: Pain) Discontinued metoprolol tartrate 25 mg Tablet 25 mg PO BID Qty: 60 0RF enoxaparin [Lovenox] 120 mg/0.8 mL Syringe 120 mg subcut Q12H 30 Days Qty: 48 0RF Discharge Orders: Discharge Order (Routine); Ordered 02/06/24 Ordered By: Joseph Friedman Admission Data Admit Date/Time: 01/27/24 13:02 Attending Provider: Joseph Friedman Admit Provider: Danny Farah Primary Care Provider: Stef Encarnacion Other Providers: [facility]; Danny Farah; Vanessa Pardo; Timothy Franco Hospital Stay Data Consultations 01/27/24 12:36 ED Decision to Admit Stat 01/27/24 12:39 Consult General Surgery Routine 02/01/24 10:13 Consult Vascular Surgery Routine Diagnostic Imagining Performed 01/27/24 01:41 CT chest diagnostic w con Stat 01/27/24 09:55 CT chest diagnostic wo con Stat Pending Results Patient Have Any Pending Studies at Discharge: No Discharge Instructions Given to Patient (Per Discharging Provider) Lovenox dosage has been decreased to 40 mg once a day. Metoprolol tartrate has been switched to metoprolol succinate. Continue fentanyl patch for pain control and change patch every 3 days Total Time Total Time Spent Total Time Spent (In Minutes): 45 minutes Coding Level of Care Code 75376 INP/OBS DISCH >30 MIN Diagnoses Hematoma of chest wall S20.219A Acute blood loss anemia D62 Constipated K59.00 Pulmonary embolism on long-term anticoagulation therapy I26.99; Z79.01 Encephalitis G04.90 Atrial fibrillation and flutter I48.91; I48.92 Obesity E66.9 Elevated LFTs R79.89
[2024-02-06 13:49] VITALS: PULSE 73
== END 2024-02-06 14:18 | disposition home health service (06) | DRG 813 ==
LOC: ED 01:27 → 2S 13:02 → SUATTDRO 13:02 → 2S 17:26 → 3N 02-04 13:26
DX: K59.00 Constipation, unspecified; Z88.5 Allergy status to narcotic agent; N18.30 Chronic kidney disease, stage 3 unspecified; M79.81 Nontraumatic hematoma of soft tissue; Z79.01 Long term (current) use of anticoagulants; Z11.52 Encounter for screening for COVID-19; Z86.16 Personal history of COVID-19; I12.9 Hypertensive chronic kidney disease with stage 1 through stage 4 chronic kidney disease, or unspecified chronic kidney disease; I48.92 Unspecified atrial flutter; R30.0 Dysuria; R57.8 Other shock; Z88.8 Allergy status to other drugs, medicaments and biological substances; E66.9 Obesity, unspecified; Z68.41 Body mass index [BMI] 40.0-44.9, adult; E55.9 Vitamin D deficiency, unspecified; I27.82 Chronic pulmonary embolism; T45.515A Adverse effect of anticoagulants, initial encounter; K72.00 Acute and subacute hepatic failure without coma; I48.91 Unspecified atrial fibrillation; C43.9 Malignant melanoma of skin, unspecified; G04.90 Encephalitis and encephalomyelitis, unspecified; D68.32 Hemorrhagic disorder due to extrinsic circulating anticoagulants; Z88.1 Allergy status to other antibiotic agents; D62 Acute posthemorrhagic anemia; E78.00 Pure hypercholesterolemia, unspecified; Z79.899 Other long term (current) drug therapy

== ENCOUNTER 2024-02-24 06:58 | Inpatient (IN) ==
--- OUTSIDE RECORDS SUMMARY | 2024-02-24 07:02 | External Medical Summary | Continuity of Care Document ---
Author Name Unknown Organization [facility] [address] [place], [place] [id number] Care Team Providers Care Travel Consultant Name Role Phone Stef Encarnacion Primary Care Physician [phone] Encounter [facility] [id number] Date(s): 02/21/24 - 02/21/24 [facility] [address] [facility] [address] [facility] [address] [place], [place] [phone] Encounter Diagnosis Anemia, unspecified(Final) - Chronic kidney disease, stage 3 unspecified(Final) - Discharge Disposition: Home or Self Care Attending Physician: JAMARI Buchanan Tara Referring Physician: JAMARI Buchanan Tara Allergies, Adverse Reactions, Alerts Substance Criticality Severity Reaction Reaction Severity Status simvastatin 1 - muscle and joint pain Active gabapentin rash Active OxyContin rash Active oxyCODONE rash Active traMADol rash Active HYDROcodone rash Active TEGretol rash Active 1muscle and joint pain Immunizations [...] bid, Disp# 60 tab, Refills: 11, Pharmacy: [id number] Start Date: 12/11/23 Status: Ordered fentaNYL 25 mcg/hr transdermal film, extended release Start: 02/16/24 10:08:00 AM EDT, 1 patch, topical, q72h, Refills: 0 Start Date: 02/16/24 Status: Ordered ferrous sulfate 325 mg (65 mg elemental iron) oral delayed release tablet Start: 02/16/24 10:29:00 AM EDT, 1 tab, PO, bid Start Date: 02/16/24 Status: Ordered furosemide Start: 01/11/24 9:05:00 AM EDT Start Date: 01/11/24 Status: Ordered Lovenox Start: 01/11/24 9:05:00 AM EDT, bid Start Date: 01/11/24 Status: Ordered Lyrica 150 mg oral capsule Start: 02/16/24 11:01:00 AM EDT, 1 cap, PO, Daily, Disp# 90 cap, Refills: 0, other Start Date: 02/16/24 Status: Ordered metoprolol succinate 50 mg oral tablet, extended release Start: 02/16/24 10:09:00 AM EDT Start Date: 02/16/24 Status: Ordered MiraLax oral powder for reconstitution Start: 03/14/23 9:19:00 AM EDT, 17 g =, PO, Daily, PRN: constipation Start Date: 03/14/23 Status: Ordered pravastatin 20 mg oral tablet Start: 10/31/23 7:06:00 PM EDT, 1 tab, PO, Daily, Disp# 90 tab, Refills: 3, Pharmacy: [id number] Start Date: 10/31/23 Status: Ordered Systane Start: 02/13/23 4:17:00 PM EDT, as needed dry eyes Start Date: 02/13/23 Status: Ordered Tylenol 500 mg oral tablet Start: 03/30/23 4:02:00 PM EDT, 2 tab, PO, tid Start Date: 03/30/23 Status: Ordered warfarin 5 mg oral tablet Start: 02/16/24 10:07:00 AM EDT Start Date: 02/16/24 Status: Ordered Problem List Condition Confirmation Course Effective Dates Status H ealth Status Informant AA (aortic aneurysm) 1, 2, 3 Confirmed Active Atrial fibrillation Confirmed Active Anti-cardiolipin antibody positive Confirmed Active [...] Active Fatty liver 14 Confirmed 09/03/16 Active Trigeminal neuralgia Confirmed Active Vitamin D deficiency 15 Confirmed Active Weight disorder Confirmed Active 1sees Dr. Prosper Marshall 2chest CT in 06/2015: 4.4cm. 3chest CT in 09/2014: 4.6cm ascendign aortic aneurysm. [place]. [place] [facility] [place] 4sees Dr. Reddy 13:15 EDT - SHA Solo Jessica Impression: 1. Stable mild aneurysmal dilation of the ascending throacic aorta which measures 44 mm. 2. Stable 2 cm pleural-based right upper lobe nodule. This is likely benign given its 3 year stability. 14:30 - SHA Barry Kimbra J Impression: Stable distention root of the aorta [...] Extraction of wisdom tooth 10/30/13 Completed Colonoscopy 2011 Completed Shoulder, RIght Total Replacement 2011 [...] diverticulosis without evidence of acute diverticulitis 14Dr. [facility] left trigeminal neuralgia 41.8 minutes [...] the fat is likely incidental rather than underwriting service representative of the lesion, though correlation with [...] 33hyperplastic polyp 34Bilateral- both done twice 35Benign Results Laboratory List Name Date Complete Blood Count w Differential (CBC ,DIFFH) 02/21/24 Comprehensive Metabolic Panel (COMP META B PANEL) 02/21/24 Ferritin (FERRITIN) 02/21/24 Iron Profile (IRON PROFILE) 02/21/24 Most recent to oldest [Reference Range]: 1 eGFR CKD-EPI [>60 mL/min/1.73 m2] 88 mL/ min/1.73 m2 1 (02/21/24 9:30 AM) Estimated CrCl 85.07 mL/min (02/21/24 12:50 PM) MPV [9.0-12.2 fL] 9.6 fL (02/21/24 9:30 AM) Immature Gran% 0.9 % (02/21/24 9:30 AM) Neut% 63.5 % (02/21/24 9:30 AM) Lymph% 25.3 % (02/21/24 9:30 AM) [place]% 9.3 % (02/21/24 9:30 AM) Baso% 0.2 % (02/21/24 9:30 AM) Eos% 0.8 % (02/21/24 9:30 AM) Immat Gran, Abs [0-0.4 K/uL] 0.06 K/uL (02/21/24 9:30 AM) Neut, Abs [2.0-7.7 K/uL] 4.23 K/uL (02/21/24 9:30 AM) Lymph, Abs [1.0-3.4 K/uL] 1.68 K/uL (02/21/24 9:30 AM) [place], Abs [0-1.0 K/uL] 0.62 K/uL (02/21/24 9:30 AM) Baso, Abs [0-0.1 K/uL] 0.01 K/uL (02/21/24 9:30 AM) Eos, Abs [0-0.5 K/uL] 0.05 K/uL (02/21/24 9:30 AM) Type of Diff: AUTO *Unknown* (02/21/24 9:30 AM) RDW [11.5-14.2 %] 15.2 % *HI* (02/21/24 9:30 AM) Anion Gap [5-14 mmol/L] NEG 1 mmol/L (02/21/24 9:30 AM) Alb [3.5-5.0 g/dL] 3.2 g/dL *LOW* (02/21/24 9:30 AM) Alk Phos [38-126 unit/L] 97 unit/L (02/21/24 9:30 AM) ALT [<50 unit/L] 50 unit/L *HI* (02/21/24 9:30 AM) AST [15-46 unit/L] 49 unit/L *HI* (02/21/24 9:30 AM) BUN [7-20 mg/dL] 21 mg/dL *HI* (02/21/24 9:30 AM) Ca [8.4-10.2 mg/dL] 8.5 mg/dL (02/21/24 9:30 AM) Cl- [96-107 mmol/L] 109 mmol/L *HI* (02/21/24 9:30 AM) HCO3 [22-30 mmol/L] 29 mmol/L (02/21/24 9:30 AM) Cret [0.70-1.30 mg/dL] 0.86 mg/dL (02/21/24 9:30 AM) Iron [50-158 ug/dL] 57 ug/dL (02/21/24 9:30 AM) Ferritin [17.9-464.0 ng/mL] 304.6 ng/mL 2 (02/21/24 9:30 AM) Glu [74-106 mg/dL] 88 mg/dL (02/21/24 9:30 AM) Hct [39-48 %] 33.5 % *LOW* (02/21/24 9:30 AM) Hgb [13.0-17.0 g/dL] 10.4 g/dL *LOW* (02/21/24 9:30 AM) K [3.5-5.1 mmol/L] 3.8 mmol/L (02/21/24 9:30 AM) MCH [28-33 pg] 32.1 pg (02/21/24 9:30 AM) MCHC [32-36 g/dL] 31.0 g/dL *LOW* (02/21/24 9:30 AM) MCV [81-96 fL] 103.4 fL *HI* (02/21/24 9:30 AM) Na [137-145 mmol/L] 137 mmol/L (02/21/24 9:30 AM) Plts [150-350 K/uL] 268 K/uL (02/21/24 9:30 AM) RBC [4.40-5.60 M/uL] 3.24 M/uL *LOW* (02/21/24 9:30 AM) Fe Sat [14-50 %] 21 % (02/21/24 9:30 AM) T Bili [0.2-1.3 mg/dL] 0.9 mg/dL (02/21/24 9:30 AM) Total IBC [250-400 ug/dL] 268 ug/dL (02/21/24 9:30 AM) Prot [6.3-8.2 g/dL] 6.0 g/dL *LOW* (02/21/24 9:30 AM) Transferrin [200-360 mg/dL] 227 mg/dL (02/21/24 9:30 AM) WBC [4.0-10.4 K/uL] 6.65 K/uL (02/21/24 9:30 AM) 1Result Comment: Testing Performed By: Dept of Pathology [facility] Lilian Thakkar, [address] [place] [address] 2Result Comment: Testing Performed By: Dept of Pathology [facility] Lilian Thakkar, [address] [place] [id number] Social History Social History Type Response Smoking [...] Unknown 06/21/27 Unknown Unknown Active Unkn own Patient Care team information Care Team Personnel Name: JAMARI Buchanan Tara Position: Nurse Pract - Family Med Member Role: Lifetime Relationship Address: [address] [place] [address] [place] Name: MD Encarnacion Juan Position: Physician - Family Med Member Role: Primary Care Provider Address: [address] [place] [address] [place] Name: Taty Vance Paula Position: Pharmacist Member Role: Pharmacy - Lifetime Address: [address] [address] [place] Name: Taty Gomes Brittani Position: Pharmacist Member Role: Pharmacy - Lifetime Care Team Related Persons Name: HECTOR HADDAD
--- NOTE | 2024-02-24 07:37 | Emergency Department Note ---
History of Present Illness General Chief complaint: Dehydration Stated complaint: DEHYDRATED Time Seen by Provider: 02/24/24 07:28 History of Present Illness Maximum Pain Intensity: 8 This is a 78-year-old male that presents to the emergency department via private vehicle accompanied by friend with complaints of "dehydration". Patient notes he thinks he is dehydrated. He has associated nausea and abdominal pain. This began about a day ago. Patient notes his symptoms progressed. He is anticoagulated noting history of blood clot. He notes no missed doses. He denies any recent falls or trauma. He does note hematoma to the left anterior chest which is resolving. No fevers or chills. He notes no issues with bowel movement or urination. He notes the abdominal discomfort is in the central abdomen and started last evening. Home Medications Medication Instructions Recorded Confirmed Type acetaminophen 650 mg 650 mg PO Q4H PRN Pain 01/27/24 02/24/24 History tablet,extended release allopurinol 100 mg tablet 100 mg PO QAM 01/27/24 02/24/24 History fentanyl 25 mcg/hr transdermal 1 patch transdermal Q3D #10 ea 02/06/24 02/24/24 Rx patch ferrous sulfate 325 mg (65 mg 325 mg PO BIDM #60 tabs 02/06/24 02/24/24 Rx iron) tablet,delayed release metoprolol succinate 50 mg 50 mg PO QAM #30 tabs 02/06/24 02/24/24 Rx tablet,extended release 24 hr sennosides 8.6 mg-docusate sodium 1 tab PO BID #60 tabs 02/06/24 02/24/24 Rx 50 mg tablet (Senokot-S) polyethylene glycol 3350 17 gram 17 g PO QAM 02/10/24 02/24/24 History oral powder packet (Miralax) warfarin 5 mg tablet See Rx Instructions PO UD #120 tabs 02/12/24 02/24/24 Rx furosemide 40 mg tablet 40 mg PO DAILY PRN weight 02/24/24 02/24/24 History gain/swelling potassium citrate 10 mEq (1,080 10 meq PO BID 02/24/24 02/24/24 History mg) tablet,extended release Allergies Allergy/AdvReac Type Severity Reaction Status Date / Time gabapentin Allergy Intermediate Rash Verified 02/24/24 09:51 tramadol Allergy Intermediate Rash and Verified 09/21/24 09:51 itchiness hydrocodone Allergy Mild itchy Verified 02/24/24 09:51 oxycodone Allergy Mild itchy Verified 02/24/24 09:51 carbamazepine Allergy Unknown Unknown Verified 02/24/24 09:51 ciprofloxacin Allergy Unknown Unknown Verified 02/24/24 09:51 Past Med/Surg History Problem List (Updated 02/24/24 @ 14:28 by Hu Patel PA-C) Abdominal pain (Acute) Hypoxia (Acute) Melanoma Subtherapeutic international normalized ratio (INR) Abdominal pain Hypoxia On warfarin at home (Acute) Weakness (Acute) Hypotension (Acute) Elevated LFTs Acute blood loss anemia Dysuria Hematoma of chest wall (Acute) Chest pain (Acute) Metabolic encephalopathy Demand ischemia Altered mental status Acute kidney injury superimposed on CKD Complicated UTI (urinary tract infection) Severe sepsis Hypovolemic shock Vomiting (Acute) Hypomagnesemia (Acute) Bilateral cellulitis of lower leg (Acute) Bilateral leg edema (Acute) Prostate nodule ELISABETH (acute kidney injury) Hypomagnesemia Bilateral cellulitis of lower leg (Acute) Leg swelling (Acute) ALVAREZ (dyspnea on exertion) (Acute) Cellulitis Incontinence Port-A-Cath in place (01/24/23) Infusaport Insertion to right internal jugular with Fluoroscopy(Right) - Vamsi Tolbert DO Allergic reaction (Acute) Pulmonary embolism Trigeminal neuralgia (Acute) Trigeminal neuralgia (Acute) Vitamin D deficiency (Acute) Hypertension (Acute) Chronic kidney disease, stage 3 (Acute) Vitamin D deficiency (Chronic) Prostate cancer screening Thoracic ascending aortic aneurysm Gastritis Insomnia Encounter for pre-operative examination Primary osteoarthritis, left shoulder Low back pain with sciatica (Acute) History of pulmonary embolism 2016, unknown etiology half-way (current) use of anticoagulants (Chronic) History of malignant melanoma Left side of neck Aortic aneurysm CT 12/2022- "Aneurysmal dilatation of the ascending thoracic aorta measuring up to 4.6 cm in diameter. This is similar to the prior studies." Follows with Dr. Marshall Hypercholesterolemia (Acute) Stone in kidney Hx Hypertension (Chronic) Chronic kidney disease, stage III (moderate) (Chronic) Trigeminal neuralgia (Acute) s/p radiated nerve, No issues x several years Medical History Obesity Encephalitis Pulmonary embolism on long-term anticoagulation therapy Atrial fibrillation and flutter Pulmonary embolism Constipated COVID-19 Osteoarthritis Surgical History History of left shoulder replacement History of right shoulder replacement History of total left knee replacement (TKR) History of total right knee replacement (TKR) with revision History of colonoscopy History of inguinal hernia repair History of cancer surgery Left side of neck resection + lymph node removal History of tooth extraction History of tonsillectomy and adenoidectomy History of sinus surgery History of cystoscopy History of cataract surgery bilateral History of back surgery L4-L5 with screws Family History Family/Other Diabetes Heart disease Nephrolithiasis Other No family history of adverse response to anesthesia Social History Smoking Status: Never smoker Second Hand Exposure: No; Do You Dip or Chew Tobacco: No; Hx Alcohol Use: No Hx Substance Use: No Preferred Language: Bulgarian Communication Ability: Effective 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: No Beliefs That Will Affect Care: None Current Living Situation: Spouse current occupational status: retired Feels Safe at Home: Yes Seatbelt Use: always Assistive Devices: Cane and Walker Review of Systems A total of 10 systems reviewed and were otherwise negative Physical Exam Vital Signs Vital Signs - 24 hr 02/24/24 07:01 02/24/24 07:37 02/24/24 08:02 Temperature 36 C L Temperature Source Temporal Artery Scan Pulse Rate 90 82 Pulse Rhythm Regular Respiratory Rate 16 24 Respiratory Effort / Characteristics Non-Labored Spontaneous Non-Labored Respiratory Depth Normal Normal Respiratory Pattern Regular Blood Pressure 124/80 Blood Pressure [Right Arm] Blood Pressure Mean 94 Blood Pressure Mean [Right Arm] Blood Pressure Position Sitting Pulse Oximetry 92 90 Oxygen Delivery Method Room Air Room Air Oxygen Flow Rate Sepsis Recent Fever Within 48 Hours No Sepsis New/Unexplained Change in Mental Status N/A Sepsis Action Taken by Nursing No Action Required Oxygen Flow Rate - Titration Pulse Oximetry Post Tiitration 02/24/24 08:05 02/24/24 08:43 02/24/24 09:18 Temperature Temperature Source Pulse Rate 82 Pulse Rhythm Respiratory Rate 24 Respiratory Effort / Characteristics Respiratory Depth Respiratory Pattern Blood Pressure Blood Pressure [Right Arm] 135/60 Blood Pressure Mean Blood Pressure Mean [Right Arm] 85 Blood Pressure Position Pulse Oximetry 88 L 97 Oxygen Delivery Method Room Air Nasal Cannula Nasal Cannula Oxygen Flow Rate 0 2 Sepsis Recent Fever Within 48 Hours Sepsis New/Unexplained Change in Mental Status Sepsis Action Taken by Nursing Oxygen Flow Rate - Titration 2 Pulse Oximetry Post Tiitration 96 02/24/24 11:01 02/24/24 12:04 02/24/24 13:57 Temperature Temperature Source Pulse Rate 90 Pulse Rhythm Respiratory Rate 22 24 Respiratory Effort / Characteristics Non-Labored Respiratory Depth Normal Normal Respiratory Pattern Blood Pressure Blood Pressure [Right Arm] 119/59 L 133/50 L Blood Pressure Mean Blood Pressure Mean [Right Arm] 79 77 Blood Pressure Position Pulse Oximetry 96 96 Oxygen Delivery Method Room Air Nasal Cannula Oxygen Flow Rate 2 Sepsis Recent Fever Within 48 Hours Sepsis New/Unexplained Change in Mental Status Sepsis Action Taken by Nursing Oxygen Flow Rate - Titration Pulse Oximetry Post Tiitration VITAL SIGNS - Vital signs and nursing notes were reviewed. Stable and afebrile. GENERAL -78-year-old male appearing his stated age who is in no acute distress but is tired appearing, and clinically dry in appearance. Communicates well with provider and answers questions appropriately. SKIN - Without rashes. No wounds. Left anterior chest wall hematoma noted with some ecchymosis. No signs of recent/acute trauma. HEAD - NC/AT. EYES - PERRL with EOMI bilaterally. Sclera anicteric. EARS - No deformities of external structures noted on gross examination bilaterally. External auditory canals without discharge or otorrhea. Tympanic membranes pearly cruz without retraction or bulging. No fluid or purulent material visualized behind the TM. Handle of malleus, umbo, cone of light, pars tensa/flaccid all easily visualized. NOSE - Midline and without cyanosis. No epistaxis or purulent drainage noted. Septum midline without deviation or septal hematoma noted. MOUTH/OROPHARYNX - Without perioral cyanosis. Buccal mucosa pink and moist and without leukoplakia. Tongue midline with equal elevation of palate bilaterally. No tonsillar hypertrophy, erythema, or exudates noted. Good dentition noted. NECK - Neck with FROM. Supple to palpation. No lymphadenopathy noted. No nuchal rigidity. LUNGS - CTA CARDIAC - RRR. ABDOMEN - Abdominal contour normal without pulsations or visible masses. BS normoactive all four quadrants. No tenderness, palpable masses, hepatosplenomegaly, or ascites noted. EXTREMITIES - No clubbing or peripheral cyanosis. +5/5 strength noted in UE/LE bilaterally. NEUROLOGIC - Cranial nerves grossly intact. PSYCH -alert and oriented, and cooperates fully with examiner. Pt is very pleasant and interacts well with examiner. Course Administered Medications Magnesium Sulfate/Dextrose (Magnesium Sulfate / D5w) 1 gm in 100 mls @ 50 mls/hr IV Q2H KELSY Stop: 02/24/24 18:14 Last Admin: 02/24/24 13:44 Dose: 50 mls/hr Documented By: Infusion: 02/24/24 13:44 Dose: Infused Documented By: Admin: 02/24/24 11:46 Dose: 50 mls/hr Documented By: Infusion: 02/24/24 11:45 Dose: Infused Documented By: Admin: 02/24/24 10:18 Dose: 50 mls/hr Documented By: USMAN Discontinued Medications Sodium Chloride (Nss) 500 mls @ 125 mls/hr IV .Q4H KELSY Stop: 03/25/24 07:44 Last Infusion: 02/24/24 11:28 Dose: Infused Documented By: Admin: 02/24/24 07:51 Dose: 125 mls/hr Documented By: JOSE ARMANDO Calcium Gluconate () 1,000 mg in 60 mls @ 240 mls/hr IV NOW STA Stop: 02/24/24 10:48 Last Infusion: 02/24/24 11:28 Dose: Infused Documented By: Admin: 02/24/24 10:56 Dose: 240 mls/hr Documented By: USMAN Medical Decision Making Laboratory Data 02/24/24 07:53 02/24/24 07:53 Lab Results 02/24/24 02/24/24 02/24/24 Range/Units 07:53 08:00 Unknown WBC 8.43 (4.8-10.8) K/ul RBC 3.43 L (4.70-6.10) M/uL Hgb 10.8 L (14.0-18.0) g/dl POC Hgb 10.5 L (14.0-18.0) g/dl Hct 33.9 L (42.0-52.0) % POC Hct 31 L (42-52) % MCV 98.8 (80.0-100.0) fL MCH 31.5 (25.0-34.0) pg MCHC 31.9 L (32.0-36.0) g/dL RDW Std Deviation 54.4 H (36.4-46.3) fL RDW Coeff of Lisbeth 14.9 H (11.5-14.5) % Plt Count 157 (130-400) K/uL MPV 9.3 L (9.4-12.4) fL Immature Gran % (Auto) 0.5 % Neut % (Auto) 59.6 % Lymph % (Auto) 27.6 % Weakley % (Auto) 9.4 % Eos % (Auto) 2.5 % Baso % (Auto) 0.4 % Neut # (Auto) 5.03 (1.40-6.50) K/uL Lymph # (Auto) 2.33 (1.20-3.40) K/uL Weakley # (Auto) 0.79 H (0.11-0.59) K/uL Eos # (Auto) 0.21 (0.00-0.50) K/uL Baso # (Auto) 0.03 (0.00-0.20) K/uL Immature Gran # (Auto) 0.04 (0.01-0.20) K/uL PT 15.8 H (9.0-12.0) Seconds INR 1.5 H (0.9-1.1) APTT 34 H (21-31) Seconds PTT Ratio 1.3 POC Sodium 134 L (135-144) mmol/L Sodium 134 L (136-145) mmol/L POC Potassium 3.4 (3.3-5.0) mmol/L Potassium 3.5 (3.5-5.1) mmol/L POC Chloride 97 L (101-112) mmol/L Chloride 100 (98-107) mmol/L Carbon Dioxide 27 (21-32) mmol/L POC Total CO2 24 (24-31) mmol/L Anion Gap 7 (3-11) POC Anion Gap 17.0 (16-25) mmol/L POC BUN 14 (7-18) mg/dl BUN 16 (6-23) mg/dl Creatinine 1.01 (0.6-1.4) mg/dl POC Creatinine 1.1 (0.6-1.3) mg/dl Est Cr Clr Drug Dosing 71.1 ml/min Est GFR ( Amer) 81.6 ml/min Est GFR (Non-Af Amer) 70.4 ml/min BUN/Creatinine Ratio 15.8 (10-20) Glucose 108 H (70-99(Fasting)) mg/dl POC Glucose (other) 107 H (70-99) mg/dl Lactate 1.5 (0.4-2.0) mmol/L Calcium 7.8 L (8.6-10.3) mg/dl POC Ioniz Calcium Laura 1.07 L (1.12-1.32) mmol/l Phosphorus 2.3 L (2.5-4.9) mg/dl Magnesium 1.3 L (1.7-2.4) mg/dl Total Bilirubin 1.5 H (0.2-1.0) mg/dl AST 27 (13-39) U/L ALT 23 (7-52) U/L Alkaline Phosphatase 90 (34-104) U/L Troponin I High Sens 11.7 (0-20) pg/ml B-Natriuretic Peptide 103 H (0-100) pg/ml Total Protein 5.2 L (6.0-8.3) gm/dl Albumin 3.0 L (3.4-5.0) gm/dl Globulin 2.2 L (2.5-4.0) gm/dl Albumin/Globulin Ratio 1.4 (0.9-2) Lipase 19 (11-82) U/L Procalcitonin 0.42 (0-0.5) ng/ml TSH 2.017 (0.300-4.500) uIu/ml Random Cortisol 2.39 mcg/dl Urine Color Yellow Urine Appearance Clear (Clear) Urine pH 7.0 (4.5-7.5) Ur Specific Amoret 1.018 (1.000-1.030) Urine Protein 1+ H (Negative) Urine Glucose (UA) Negative (Negative) Urine Ketones Trace H (Negative) Urine Blood Negative (Negative) Urine Nitrite Negative (Negative) Urine Bilirubin Negative (Negative) Urine Urobilinogen Negative (Negative) Ur Leukocyte Esterase 1+ H (Negative) Urine WBC (Auto) 6-10 H (0-5) /hpf Urine RBC (Auto) 0-2 (0-2) /hpf U Hyaline Cast (Auto) 0-2 (0-2) /lpf U Epithel Cells (Auto) 0-2 (0-2) /hpf Urine Bacteria (Auto) None Seen (None Seen) Adenovirus (PCR) Not Detected (NotDetected) B. pertussis DNA (PCR) Not Detected (NotDetected) B.parapertussis DNA PCR Not Detected (NotDetected) C. pneumoniae DNA (PCR) Not Detected (NotDetected) Coronavirus OC43 (PCR) Not Detected (NotDetected) Coronavirus HKU1 (PCR) Not Detected (NotDetected) Coronavirus 229E (PCR) Not Detected (NotDetected) SARS-CoV-2 (PCR) Not Detected (NotDetected) Coronavirus NL63 (PCR) Not Detected (NotDetected) Human Metapneumovir PCR Not Detected (NotDetected) Influenza Type A (PCR) Not Detected (NotDetected) Influenza Type B (PCR) Not Detected (NotDetected) M. pneumoniae (PCR) Not Detected (NotDetected) Parainfluenza 1 (PCR) Not Detected (NotDetected) Parainfluenza 2 (PCR) Not Detected (NotDetected) Parainfluenza 3 (PCR) Not Detected (NotDetected) Parainfluenza 4 (PCR) Not Detected (NotDetected) RSV (PCR) Not Detected (NotDetected) Entero/Rhino (PCR) Not Detected (NotDetected) Imaging Data Radiologist's Impression: Head CT 02/24/24 07:35 CT head/brain wo con CLINICAL HISTORY: 78 years-old Male with nausea, anticoagulated. Acute nausea with headache TECHNIQUE: Multiple axial CT images of the head were obtained without contrast. A dose lowering technique was utilized adhering to the principles of ALARA. COMPARISON: 01/19/[address], brain MRI 01/21/2024 FINDINGS: No acute intracranial hemorrhage, midline shift, intracranial mass, hydrocephalus, territorial ischemia or abnormal extra-axial collection. Involutional changes with chronic microvascular ischemic disease. Calcifications of the lentiform nuclei. No acute calvarial fracture. Chronic postoperative changes in the sphenoid sinuses and posterior nasopharynx. Mastoid air cells are clear. Unremarkable soft tissues. IMPRESSION: No acute intracranial abnormality. ACT 112: Negative or not required by law. The above report was generated using voice recognition software. It may contain grammatical, syntax or spelling errors. Electronically signed by: Dominick George M.D. 02/24/2024 8:53 AM Chest X-Ray 02/24/24 07:37 XR chest 1V portable HISTORY: 78 years-old Male nausea, abd pain acute nodule with chest and abdominal pain COMPARISON: 02/10/2024, chest CT 01/27/2024 TECHNIQUE: AP view of the chest FINDINGS: Cardiac silhouette is enlarged. Right IJ Regynb-c-Ltbb catheter distal tip noted within the expected location of the upper SVC. Pulmonary vascular congestion. No pneumothorax or pleural effusion. Ill-defined opacity of the left hemithorax, likely secondary to the previously seen large left chest wall hematoma. Bilateral shoulder arthroplasties. Bones appear intact. IMPRESSION: 1. Cardiomegaly with pulmonary vascular congestion. 2. In ill-defined opacity of the left hemithorax redemonstrated, likely secondary to persistent hematoma of the left chest wall previously seen on the 01/27/[address] ACT 112: Negative or not required by law. The above report was generated using voice recognition software. It may contain grammatical, syntax or spelling errors. Electronically signed by: Dominick George M.D. 02/24/2024 8:19 AM Abdomen/Pelvis CT 02/24/24 07:[address] WITHOUT CONTRAST CT DOSE: 2229.59 mGy.cm HISTORY: Acute generalized abdominal pain with nausea. Acute kidney injury abd pain, nausea, recent ELISABETH TECHNIQUE: Multiaxial CT images of the abdomen and pelvis were performed without contrast. A dose lowering technique was utilized adhering to the principles of ALARA. COMPARISON STUDY: CT, 01/11/2024, renal ultrasound 01/05/2024 FINDINGS: Cardiomegaly with advanced coronary artery calcifications. Bibasilar atelectasis/scarring. Unchanged linear consolidation within the basal right lower lobe. There is no free air. Unremarkable unenhanced spleen, pancreas, gallbladder and adrenal glands. Cirrhotic liver. No hepatic mass identified. There are a few mildly hyperdense indeterminate right renal lesions measuring up to 1.5 cm. The characterize on this study, possibly complex cysts. No renal or ureteral calculi or hydronephrosis. Prostatomegaly. There is indeterminate hyperdense focus noted and the region of the seminal vesicles near the midline measuring 1.1 cm on image 329, unchanged. Moderate bladder wall thickening with partial distention. Atherosclerosis of aorta with infrarenal ectasia, 2.8 cm. No lymphadenopathy. No bowel obstruction or bowel wall thickening. Trace ascites. Colonic diverticulosis. Noninflamed appendix. Tiny fat filled umbilical hernia. Degenerative and postoperative changes of the spine. IMPRESSION: 1. No ureteral calculi or hydronephrosis. 2. Prostatomegaly with evidence of chronic outlet obstruction. 3. No bowel obstruction or bowel wall thickening. 4. Colonic diverticulosis. 5. There are few indeterminate right renal lesions measuring up to 1.5 cm, incompletely characterized on this study and possibly representing complex cysts. 6 month follow-up renal ultrasound recommended. 6. Additional findings as above. ACT 112: Negative or not required by law. The above report was generated using voice recognition software. It may contain grammatical, syntax or spelling errors. Electronically signed by: Dominick George M.D. 02/24/2024 9:11 AM MDM Narrative Patient was seen and evaluated as above in room A11b. Review was performed of triage nursing notes and vital signs. I did review pertinent previous visits and patient history. After obtaining a thorough history and physical examination the above work up was performed. Patient presents to us today for evaluation of dehydration, feeling unwell. He has nausea and abdominal pain. Patient does appear tired, and dehydrated on examination. Vital signs are stable. No leukocytosis. Stable anemia noted with hemoglobin of 10.8. INR 1.5. Mild hyponatremia 134. No evidence of kidney or liver failure emergently but will note T. bili now 1.5, hypomagnesemia 1.3 and hypercalcemia 7.8. BNP mildly elevated 103. Troponin within normal range at 11.7. Procalcitonin within normal range 0.42. TSH was euthyroid state. Urinalysis reveals 1+ leukocytes, 6-10 white blood cells. No bacteria. BioFire is negative. An EKG was performed and this reveals sinus rhythm with PACs at a rate of 89 bpm. QTc 425. QRS 76. No ST elevation. A CT scan was obtained of the head as well as abdomen/pelvis. No contrast was utilized on the abdomen/pelvis secondary to recent ELISABETH during hospitalization. Chest x-ray reveals what is likely persistence of the hematoma of the left chest wall. Patient denies any cough. At 8:37 AM on 02/24/2024 I did note that the patient was hypoxic at 88% with good waveform. I immediately presented to bedside. Patient was placed on nasal cannula oxygen and rebounded nicely. At this time I do believe that further evaluation and management is warranted in the inpatient setting. Case discussed with the hospitalist service. I did order maintenance fluids here. Please refer to further documentation regarding his stay. Case was discussed with the attending physician. GCS: 15 In the evaluation and treatment of this patient the following differential diagnoses were entertained: MA, PE, pericarditis, costochondritis, pneumonia, acute abdomen, among others Impression & Plan Hypoxia, Abdominal pain Discharge Plan Visit Data Chief Complaint: Dehydration Stated Complaint: DEHYDRATED ED Provider: Jag Lira ED Midlevel Provider: Hu Patel Discharge Problem: Hypoxia, Abdominal pain Patient Disposition: Admitted As Inpatient Condition: Good Discharge Instructions Interventions: ED Discharge Assessment Last Done: 02/24/24 14:02 Forms Stand Alone Forms: My [facility] [place] Prescriptions Prescriptions: No Action warfarin 5 mg tablet See Rx Instructions PO UD Qty: 120 1RF Rx Instructions: Use as directed by [facility] Anticoagulation Clinic: 5mg Monday, Monday and Monday, 7.5mg all other days allopurinol 100 mg tablet 100 mg PO QAM acetaminophen 650 mg Tablet Extended Release 650 mg PO Q4H PRN (Reason: Pain) ferrous sulfate 325 mg (65 mg iron) Tablet,Delayed Release (Dr/Ec) 325 mg PO BIDM Qty: 60 0RF metoprolol succinate 50 mg Tablet Extended Release 24 Hr 50 mg PO QAM Qty: 30 0RF sennosides-docusate sodium [Senokot-S] 8.6-50 mg Tablet 1 tab PO BID Qty: 60 0RF fentanyl 25 mcg/hr Patch 72 Hour 1 patch transdermal Q3D Qty: 10 0RF polyethylene glycol 3350 [Miralax] 17 gram powder in packet 17 g PO QAM furosemide 40 mg tablet 40 mg PO DAILY PRN (Reason: weight gain/swelling) potassium citrate 10 mEq (1,080 mg) tablet extended release 10 meq PO BID Referrals Referrals: Stef Encarnacion MD [Primary Care Provider] -
[2024-02-24] MEDS: SODIUM CHLORIDE 0.9% 500 ML IV SCH (07:51)
[2024-02-24 08:09] LABS: Basophils # (auto) 0.03 K/uL (0.00-0.20); Basophils % (auto) 0.4 %; Eosinophils # (auto) 0.21 K/uL (0.00-0.50); Eosinophils % (auto) 2.5 %; Hematocrit (blood only) 33.9 % (42.0-52.0); Hemoglobin 10.8 g/dl (14.0-18.0); Immature Granulocytes # (auto) 0.04 K/uL (0.01-0.20); Immature Granulocytes % (auto) 0.5 %; Lymphocytes # (auto) 2.33 K/uL (1.20-3.40); Lymphocytes % (auto) 27.6 %; Mean Corpuscular Hemoglobin 31.5 pg (25.0-34.0); Mean Corpuscular Hgb Conc 31.9 g/dL (32.0-36.0); Mean Corpuscular Volume 98.8 fL (80.0-100.0); Mean Platelet Volume 9.3 fL (9.4-12.4); Monocytes # (auto) 0.79 K/uL (0.11-0.59); Monocytes % (auto) 9.4 %; Neutrophils # (auto) 5.03 K/uL (1.40-6.50); Neutrophils % (auto) 59.6 %; Platelet Count 157 K/uL (130-400); RDW Coefficient of Variation 14.9 % (11.5-14.5); RDW Standard Deviation 54.4 fL (36.4-46.3); Red Blood Count 3.43 M/uL (4.70-6.10); White Blood Count 8.43 K/ul (4.8-10.8)
[2024-02-24 08:12] LABS: iSTAT Creatinine 1.1 mg/dl (0.6-1.3); iSTAT Hemoglobin 10.5 g/dl (14.0-18.0); iSTAT Ionized Calcium 1.07 mmol/l (1.12-1.32); iSTAT Potassium 3.4 mmol/L (3.3-5.0)
--- NOTE | 2024-02-24 08:21 | XRay Report ---
XR chest 1V portable HISTORY: 78 years-old Male nausea, abd pain acute nodule with chest and abdominal pain COMPARISON: 02/10/2024, chest CT 01/27/2024 TECHNIQUE: AP view of the chest FINDINGS: Cardiac silhouette is enlarged. Right IJ Lcpwfo-b-Evja catheter distal tip noted within the expected location of the upper SVC. Pulmonary vascular congestion. No pneumothorax or pleural effusion. Ill-de fined opacity of the left hemithorax, likely secondary to the previously seen large left chest wall h ematoma. Bilateral shoulder arthroplasties. Bones appear intact. IMPRESSION: 1. Cardiomegaly with pulmonary vascular congestion. 2. In ill-defined opacity of the left hemithorax redemonstrated, likely secondary to persistent hemat nikhil of the left chest wall previously seen on the 01/27/[address] ACT 112: Negative or not required by law. The above report was generated using voice recognition software. It may contain grammatical, syntax o r spelling errors. Electronically signed by: Dominick George M.D. 02/24/2024 8:19 AM
[2024-02-24 08:27] LABS: Albumin Globulin Ratio 1.4 (0.9-2); BUN Creatinine Ratio 15.8 (10-20); Bilirubin,Total 1.5 mg/dl (0.2-1.0); Calcium 7.8 mg/dl (8.6-10.3); Creatinine Clr Calc Pharmacy 71.1 ml/min; Est GFR (African American) 81.6 ml/min; Est GFR (Non-African American) 70.4 ml/min; Globulin 2.2 gm/dl (2.5-4.0); Magnesium 1.3 mg/dl (1.7-2.4); Potassium 3.5 mmol/L (3.5-5.1); Total Protein 5.2 gm/dl (6.0-8.3)
[2024-02-24 08:35] LABS: Troponin I High Sensitivity 11.7 pg/ml (0-20)
[2024-02-24 08:44] LABS: Thyroid Stimulating Hormone 2.017 uIu/ml (0.300-4.500)
--- NOTE | 2024-02-24 08:55 | CT Scan Report ---
CT head/brain wo con CLINICAL HISTORY: 78 years-old Male with nausea, anticoagulated. Acute nausea with headache TECHNIQUE: Multiple axial CT images of the head were obtained without contrast. A dose lowering tech nique was utilized adhering to the principles of ALARA. COMPARISON: 01/19/[address], brain MRI 01/21/2024 FINDINGS: No acute intracranial hemorrhage, midline shift, intracranial mass, hydrocephalus, territorial ischem ia or abnormal extra-axial collection. Involutional changes with chronic microvascular ischemic disea se. Calcifications of the lentiform nuclei. No acute calvarial fracture. Chronic postoperative changes in the sphenoid sinuses and posterior naso pharynx. Mastoid air cells are clear. Unremarkable soft tissues. IMPRESSION: No acute intracranial abnormality. ACT 112: Negative or not required by law. The above report was generated using voice recognition software. It may contain grammatical, syntax o r spelling errors. Electronically signed by: Dominick George M.D. 02/24/2024 8:53 AM
[2024-02-24 08:57] LABS: Adenovirus PCR Not Detected (NotDetected); Bordetella parapertussis PCR Not Detected (NotDetected); Bordetella pertussis PCR Not Detected (NotDetected); Chlamydia pneumoniae PCR Not Detected (NotDetected); Coronavirus 229E PCR Not Detected (NotDetected); Coronavirus CoV-2 (COVID19)PCR Not Detected (NotDetected); Coronavirus HKU1 PCR Not Detected (NotDetected); Coronavirus NL63 PCR Not Detected (NotDetected); Coronavirus OC43PCR Not Detected (NotDetected); Human Metapneumovirus PCR Not Detected (NotDetected); Influenza A PCR Not Detected (NotDetected); Influenza B PCR Not Detected (NotDetected); Mycoplasma pneumoniae PCR Not Detected (NotDetected); Parainfluenza Virus 1 PCR Not Detected (NotDetected); Parainfluenza Virus 2 PCR Not Detected (NotDetected); Parainfluenza Virus 3 PCR Not Detected (NotDetected); Parainfluenza Virus 4 PCR Not Detected (NotDetected); Respiratory Syncytial VirusPCR Not Detected (NotDetected); Rhinovirus/Enterovirus PCR Not Detected (NotDetected)
[2024-02-24 08:59] LABS: INR 1.5 (0.9-1.1); Partial Thromboplastin Ratio 1.3; Partial Thromboplastin Time 34 Seconds (21-31); Prothrombin Time 15.8 Seconds (9.0-12.0)
--- NOTE | 2024-02-24 09:13 | CT Scan Report ---
ABDOMEN AND PELVIS CT WITHOUT CONTRAST CT DOSE: 2229.59 mGy.cm HISTORY: Acute generalized abdominal pain with nausea. Acute kidney injury abd pain, nausea, recent ELISABETH TECHNIQUE: Multiaxial CT images of the abdomen and pelvis were performed without contrast. A dose lo wering technique was utilized adhering to the principles of ALARA. COMPARISON STUDY: CT, 01/11/2024, renal ultrasound 01/05/2024 FINDINGS: Cardiomegaly with advanced coronary artery calcifications. Bibasilar atelectasis/scarring. Unchanged linear consolidation within the basal right lower lobe. There is no free air. Unremarkable unenhanced spleen, pancreas, gallbladder and adrenal glands. Cirrhotic liver. No hepatic mass identif ied. There are a few mildly hyperdense indeterminate right renal lesions measuring up to 1.5 cm. The lianna cterize on this study, possibly complex cysts. No renal or ureteral calculi or hydronephrosis. Prosta tomegaly. There is indeterminate hyperdense focus noted and the region of the seminal vesicles near t he midline measuring 1.1 cm on image 329, unchanged. Moderate bladder wall thickening with partial di stention. Atherosclerosis of aorta with infrarenal ectasia, 2.8 cm. No lymphadenopathy. No bowel obstruction or bowel wall thickening. Trace ascites. Colonic diverticulosis. Noninflamed lexii endix. Tiny fat filled umbilical hernia. Degenerative and postoperative changes of the spine. IMPRESSION: 1. No ureteral calculi or hydronephrosis. 2. Prostatomegaly with evidence of chronic outlet obstruction. 3. No bowel obstruction or bowel wall thickening. 4. Colonic diverticulosis. 5. There are few indeterminate right renal lesions measuring up to 1.5 cm, incompletely characterized on this study and possibly representing complex cysts. 6 month follow-up renal ultrasound recommende d. 6. Additional findings as above. ACT 112: Negative or not required by law. The above report was generated using voice recognition software. It may contain grammatical, syntax o r spelling errors. Electronically signed by: Dominick George M.D. 02/24/2024 9:11 AM
--- NOTE | 2024-02-24 10:01 | History & Physical Report ---
Date of Service February 24, 2024 Assessment & Plan (1) Weakness: Plan: Admit to [facility] telemetry and pulse oximetry Currently stable and nontoxic-appearing Presented to the ED with multiple complaints including generalized weakness with ongoing clinical decline, poor oral intake, nausea, and generalized abdominal discomfort Patient has had multiple admissions over the past 3 months including multiple inpatient rehab stays and was recently discharged home with health services on 02/06/2024 Suspect part of his generalized weakness is due to poor oral intake and deconditioning from recurrent inpatient admissions, mag is 1.3 with ionized calcium of 1.07 Will obtain Phos level for further evaluation Patient 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, will obtain cortisol level at time of admission to monitor for possible adrenal insufficiency No sign of acute infection, TSH is within normal limits If patient's clinical condition does not improve with conservative management or continues to decline would recommend further evaluation of CT chest/abdomen/pelvis with contrast to evaluate for possible new metastases of his known stage III melanoma as he has been off treatment due to recent checkpoint inhibitor encephalitis Fall/aspiration precautions PT/OT consults Bilateral SCDs for DVT prophylaxis for now Heart healthy diet with 2 g sodium and 2 L fluid restriction AM CBC, CMP, mag, PT/INR (2) Hypoxia: Plan: Patient was noted to be transiently hypoxic into the high 80s on room air while in the ED Chest x-ray shows cardiomegaly with pulmonary vascular congestion without overt volume overload and is without signs of pneumonia Patient is in no respiratory distress on exam, is without pleuritic chest pain or tachycardia to suggest recurrent PE at this time Patient was lying flat on his back on my exam, likely has a component of obesity hypoventilation syndrome as he often takes very shallow breaths Patient is unsure if he was previously tested for CRISTIANA, would not be surprised if he has on diagnose CRISTIANA at this time Has been afebrile without leukocytosis, full respiratory BioFire negative For now we will start pulmonary hygiene with incentive spirometry, flutter therapy Will discontinue maintenance fluids ordered in the ED Patient remains persistently hypoxic or clinically declines could consider CT of the chest with PE protocol but will hold for now as he has been stable and nontoxic-appearing Can consider as needed diuresis tomorrow if patient appears volume overloaded As needed O2 to keep SpO2 at or above 92% (3) Hypomagnesemia: Plan: Mag of 1.3 today, potassium is currently stable Likely due to poor oral intake and as needed diuretic use Will give initial 4 bags of 1 g IV mag sulfate admission Follow daily renal function electrolytes (4) Abdominal pain: Plan: Patient has been experiencing mild, generalized abdominal discomfort Patient is a difficult time describing the pain, does not appear to stay in [address] of the abdomen pelvis without contrast was negative for acute findings suggest this pain Bilirubin elevated at 1.5 today but other LFTs are within normal limits, negative Farmer sign on exam Will follow random cortisol ordered on admission to evaluate for possible deficiency Pain could be partially related to bruising from SQ Lovenox use as he has multiple bruised areas of recent injections As needed Zofran for nausea and Tylenol for pain at this (5) Hematoma of chest wall: Plan: Patient continues to have his persistent large left chest wall hematoma Does not appear to have increased in size but has not improved since last admission and continues to cause discomfort Will continue patient on his fentanyl patch changed every 72 hours for now Will consult general surgery to evaluate for possible hematoma evacuation as patient is high risk for infection due to tissue necrosis if his hematoma is not improving spontaneously (6) Subtherapeutic international normalized ratio (INR): Plan: Patient was initially discharged with SQ Lovenox for DVT prophylaxis on 02/06/2024 due to his recent history of large chest wall hematoma while on therapeutic Lovenox Previous admissions had noted patient to have failed warfarin therapy as chronic PEs were noted while on warfarin Patient explains that he was bridged back to warfarin by the anticoagulation clinic, last dose of subcu Lovenox was 02/22/2024 Did not have his dose of warfarin today prior to arrival Will wait to give dose of Lovenox today until patient is evaluated by general surgery for possible large left chest wall hematoma evacuation Follow daily INR (7) History of pulmonary embolism: Plan: Patient was previously on warfarin then switched to therapeutic Lovenox when chronic PEs were found during previous admission few months ago Subsequently experienced large left chest wall hematoma while on therapeutic Lovenox Since being discharged home on 02/06/2024 and following with outpatient anticoagulation clinic patient was transition back to warfarin Patient is without recurrent pleuritic chest pain, has been hemodynamically stable, without tachycardia, without significant respiratory distress Hold CT of the chest for evaluation of new PEs at this time, will plan to continue warfarin based on daily INR once general surgery evaluates the patient determine need for hematoma evacuation during this admission Plan The patient was discussed with Dr. Farah at the time of admission History of Present Illness Chief Complaint: Generalized weakness, nausea, abdominal pain Primary Care Provider: Stef Encarnacion MD iTo is a 78-year-old male with a past medical history significant for pulmonary embolism (failed warfarin therapy, recently on Lovenox), large left chest wall hematoma and acute blood loss anemia due to therapeutic Lovenox use, stage III melanoma started on pembrolizumab 01/12/2023, atrial fibrillation, stage III CKD, checkpoint inhibitor encephalitis who [facility] ED on 02/24/24 due to diffuse abdominal pain, nausea, and poor oral intake. Initially noted to be stable on arrival but subsequently came hypoxic to 88% on room air. Labs were significant for a stable hemoglobin, INR of 1.5, ionized calcium 1.07, mag of 1.3, total bili of 1.5, procalcitonin and TSH within normal limits, and full respiratory BioFire negative. CT of the head and brain without contrast was negative for acute findings. Chest x-ray was read as cardiomegaly with pulmonary vascular congestion and ill-defined opacity of the left hemithorax which was redemonstrated and likely secondary to his persistent left chest wall hematoma. CT abdomen pelvis without contrast noted prostamegaly with evidence of chronic outlet obstruction, diverticulosis, indeterminate right renal lesions measuring up to 1.5 cm, incompletely characterized due to lack of contrast possibly representing complex cyst. 6- month follow-up renal ultrasound is recommended. Otherwise CT was unremarkable. We are asked to evaluate the patient for admission due to generalized weakness and hypoxia. Patient was lying in bed in no acute distress at time of exam with a family friend sitting bedside, history is mainly obtained from the patient. He states that since being discharged home on 02/06/2024 he has had a persistent clinical decline. States that over the past week he has had very poor oral intake due to nausea and generalized abdominal discomfort. Patient states that he has not vomited but has been close to vomiting with his nausea. When asked to locate if there is abdominal pain points to the central abdomen but says that it moves around. He is unable to give specific details regarding discomfort. Denies fever, chills, chest pain, cough, pleuritic chest pain, dysuria/hematuria, diarrhea, or recent trauma. When asked, he states that he had a normal bowel movement on 02/23/2024. He has been experiencing some dyspnea on exertion while ambulating in his home. He confirms that he was discharged on subcu Lovenox but has been following up with anticoagulation clinic who decided to transition him back to warfarin. States that his last dose of subcu Lovenox was 02/22/2024 and confirms he had no home medications prior to arrival today. States that his large left chest wall hematoma has not increased in size but has remained the same and is still causing discomfort. Patient confirms he is a DNR/DNI and would want medical decisions for him if he cannot make them himself. Please refer to Dr. Farah's attestation for any changes to the treatment plan Allergies Allergy/AdvReac Type Severity Reaction Status Date / Time gabapentin Allergy Intermediate Rash Verified 02/24/24 09:51 tramadol Allergy Intermediate Rash and Verified 02/24/24 09:51 itchiness hydrocodone Allergy Mild itchy Verified 02/24/24 09:51 oxycodone Allergy Mild itchy Verified 02/24/24 09:51 carbamazepine Allergy Unknown Unknown Verified 02/24/24 09:51 ciprofloxacin Allergy Unknown Unknown Verified 02/24/24 09:51 Home Medications Medication Instructions Recorded Confirmed Type acetaminophen 650 mg 650 mg PO Q4H PRN Pain 01/27/24 02/24/24 History tablet,extended release allopurinol 100 mg tablet 100 mg PO QAM 01/27/24 02/24/24 History fentanyl 25 mcg/hr transdermal 1 patch transdermal Q3D #10 ea 02/06/24 02/24/24 Rx patch ferrous sulfate 325 mg (65 mg 325 mg PO BIDM #60 tabs 02/06/24 02/24/24 Rx iron) tablet,delayed release metoprolol succinate 50 mg 50 mg PO QAM #30 tabs 02/06/24 02/24/24 Rx tablet,extended release 24 hr sennosides 8.6 mg-docusate sodium 1 tab PO BID #60 tabs 02/06/24 02/24/24 Rx 50 mg tablet (Senokot-S) polyethylene glycol 3350 17 gram 17 g PO QAM 02/10/24 02/24/24 History oral powder packet (Miralax) warfarin 5 mg tablet See Rx Instructions PO UD #120 tabs 02/12/24 02/24/24 Rx furosemide 40 mg tablet 40 mg PO DAILY PRN weight 02/24/24 02/24/24 History gain/swelling potassium citrate 10 mEq (1,080 10 meq PO BID 02/24/24 02/24/24 History mg) tablet,extended release Past Med/Surg History Problem List (Updated 02/25/24 @ 00:07 by Background Daaugie) Abdominal pain (Acute) Hypoxia (Acute) Melanoma Subtherapeutic international normalized ratio (INR) Abdominal pain Hypoxia Elevated LFTs Acute blood loss anemia Dysuria Hematoma of chest wall (Acute) Chest pain (Acute) Metabolic encephalopathy Demand ischemia Altered mental status Acute kidney injury superimposed on CKD Complicated UTI (urinary tract infection) Severe sepsis Hypovolemic shock Vomiting (Acute) Hypomagnesemia (Acute) Bilateral cellulitis of lower leg (Acute) Bilateral leg edema (Acute) Prostate nodule ELISABETH (acute kidney injury) Hypomagnesemia Bilateral cellulitis of lower leg (Acute) Leg swelling (Acute) ALVAREZ (dyspnea on exertion) (Acute) Cellulitis Incontinence Port-A-Cath in place (01/24/23) Infusaport Insertion to right internal jugular with Fluoroscopy(Right) - Vamsi Tolbert, Allergic reaction (Acute) Pulmonary embolism Trigeminal neuralgia (Acute) Trigeminal neuralgia (Acute) Vitamin D deficiency (Acute) Hypertension (Acute) Chronic kidney disease, stage 3 (Acute) Vitamin D deficiency (Chronic) Prostate cancer screening Thoracic ascending aortic aneurysm Gastritis Insomnia Encounter for pre-operative examination Primary osteoarthritis, left shoulder Low back pain with sciatica (Acute) History of pulmonary embolism 2015, 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 This is similar to the prior studies." Follows with Dr. Marshall Hypercholesterolemia (Acute) Stone in kidney Hx Hypertension (Chronic) Chronic kidney disease, stage III (moderate) (Chronic) Trigeminal neuralgia (Acute) s/p radiated nerve, No issues x several years Medical History Obesity Encephalitis Pulmonary embolism on long-term anticoagulation therapy Atrial fibrillation and flutter Pulmonary embolism Constipated COVID-19 Osteoarthritis Surgical History History of left shoulder replacement History of right shoulder replacement History of total left knee replacement (TKR) History of total right knee replacement (TKR) with revision History of colonoscopy History of inguinal hernia repair History of cancer surgery Left side of neck resection + lymph node removal History of tooth extraction History of tonsillectomy and adenoidectomy History of sinus surgery History of cystoscopy History of cataract surgery bilateral History of back surgery L4-L5 with screws Family History Family/Other Diabetes Heart disease Nephrolithiasis Other No family history of adverse response to anesthesia Social History Smoking Status: Never smoker Second Hand Exposure: Yes; Do You Dip or Chew Tobacco: No; Tobacco Cessation Education Requested by Patient: No Hx Alcohol Use: No Hx Substance Use: No Preferred Language: Israeli Communication Ability: Effective Sizing Sponger Required: No Beliefs That Will Affect Care: None Current Living Situation: Spouse current occupational status: retired Other Information That Helps Us Care for You: No Feels Safe at Home: Yes Seatbelt Use: always Assistive Devices: Cane Physical Exam Physical Exam: Physical Exam: General: In no acute distress, stated age, morbidly obese, chronically ill- appearing but nontoxic HEENT: Normocephalic, atraumatic, no scleral icterus, pupils around round, symmetrical, and reactive to light, moist mucus membranes, trachea midline, no thyromegaly Chest/Pulm: No respiratory distress, symmetrical chest expansion, auscultation is difficult due to body habitus and large left chest wall hematoma but breath sounds are clear Cardiac: RRR, 3/6 systolic murmur noted Abdomen: Obese abdomen, negative for ascites, mild bruising in various locations due to recent subcu Lovenox use, normoactive bowel sounds, soft, non- tender to palpation throughout Musculoskeletal: Symmetrical and without signs of acute trauma, upper and lower extremities with full ROM, no atrophy, spasticity, or flaccidity Extremities: Radial, dorsalis pedis, and posterior tibial pulses are intact and symmetrical, 1+ pitting edema in the bilateral lower extremities Skin: Patient with persistent left chest wall hematoma without signs of active bleeding, patient with chronic venous stasis in the bilateral lower extremities without signs of infection > Fentanyl patch located on the right upper lateral shoulder Neuro: Alert and oriented to person, place, month, year, and president, no focal defects, no tremors noted Psych: No acute distress, calm and cooperative during the exam Results & Data Results & Data Vital Signs (Past 12 Hours) Vital Signs Temp Pulse Resp BP BP Pulse Ox O2 Del Method 02/24/24 09:18 24 135/60 97 Nasal Cannula 02/24/24 08:43 88 L Room Air, Nasal Cannula 02/24/24 08:05 82 02/24/24 08:02 82 24 90 Room Air 02/24/24 07:01 36 C L 90 16 124/80 92 Room Air O2 Flow Rate 02/24/24 09:18 2 02/24/24 08:43 0 02/24/24 08:05 02/24/24 08:02 02/24/24 07:01 Laboratory Results Abnormal lab results 02/24/24 02/24/24 Range/Units 07:53 08:00 RBC 3.43 L (4.70-6.10) M/uL Hgb 10.8 L (14.0-18.0) g/dl POC Hgb 10.5 L (14.0-18.0) g/dl Hct 33.9 L (42.0-52.0) % POC Hct 31 L (42-52) % MCHC 31.9 L (32.0-36.0) g/dL RDW Std Deviation 54.4 H (36.4-46.3) fL RDW Coeff of Lisbeth 14.9 H (11.5-14.5) % MPV 9.3 L (9.4-12.4) fL [place] # (Auto) 0.79 H (0.11-0.59) K/uL PT 15.8 H (9.0-12.0) Seconds INR 1.5 H (0.9-1.1) APTT 34 H (21-31) Seconds POC Sodium 134 L (135-144) mmol/L Sodium 134 L (136-145) mmol/L POC Chloride 97 L (101-112) mmol/L Glucose 108 H (70-99(Fasting)) mg/dl POC Glucose (other) 107 H (70-99) mg/dl Calcium 7.8 L (8.6-10.3) mg/dl POC Ioniz Calcium Laura 1.07 L (1.12-1.32) mmol/l Magnesium 1.3 L (1.7-2.4) mg/dl Total Bilirubin 1.5 H (0.2-1.0) mg/dl B-Natriuretic Peptide 103 H (0-100) pg/ml Total Protein 5.2 L (6.0-8.3) gm/dl Albumin 3.0 L (3.4-5.0) gm/dl Globulin 2.2 L (2.5-4.0) gm/dl Diagnostic Findings Head CT 02/24/24 07:35 CT head/brain wo con CLINICAL HISTORY: 78 years-old Male with nausea, anticoagulated. Acute nausea with headache TECHNIQUE: Multiple axial CT images of the head were obtained without contrast. A dose lowering technique was utilized adhering to the principles of ALARA. COMPARISON: 01/19/[address], brain MRI 01/21/2024 FINDINGS: No acute intracranial hemorrhage, midline shift, intracranial mass, hydrocephalus, territorial ischemia or abnormal extra-axial collection. Involutional changes with chronic microvascular ischemic disease. Calcifications of the lentiform nuclei. No acute calvarial fracture. Chronic postoperative changes in the sphenoid sinuses and posterior nasopharynx. Mastoid air cells are clear. Unremarkable soft tissues. IMPRESSION: No acute intracranial abnormality. ACT 112: Negative or not required by law. The above report was generated using voice recognition software. It may contain grammatical, syntax or spelling errors. Electronically signed by: Dominick eGorge M.D. 02/24/2024 8:53 AM Chest X-Ray 02/24/24 07:37 XR chest 1V portable HISTORY: 78 years-old Male nausea, abd pain acute nodule with chest and abdominal pain COMPARISON: 02/10/2024, chest CT 01/27/2024 TECHNIQUE: AP view of the chest FINDINGS: Cardiac silhouette is enlarged. Right IJ [id number] catheter distal tip noted within the expected location of the upper SVC. Pulmonary vascular congestion. No pneumothorax or pleural effusion. Ill-defined opacity of the left hemithorax, likely secondary to the previously seen large left chest wall hematoma. Bilateral shoulder arthroplasties. Bones appear intact. IMPRESSION: 1. Cardiomegaly with pulmonary vascular congestion. 2. In ill-defined opacity of the left hemithorax redemonstrated, likely secondary to persistent hematoma of the left chest wall previously seen on the 01/27/[address] ACT 112: Negative or not required by law. The above report was generated using voice recognition software. It may contain grammatical, syntax or spelling errors. Electronically signed by: Dominick George M.D. 02/24/2024 8:19 AM Abdomen/Pelvis CT 02/24/24 07:[address] WITHOUT CONTRAST CT DOSE: 2229.59 mGy.cm HISTORY: Acute generalized abdominal pain with nausea. Acute kidney injury abd pain, nausea, recent ELISABETH TECHNIQUE: Multiaxial CT images of the abdomen and pelvis were performed without contrast. A dose lowering technique was utilized adhering to the principles of ALARA. COMPARISON STUDY: CT, 01/11/2024, renal ultrasound 01/05/2024 FINDINGS: Cardiomegaly with advanced coronary artery calcifications. Bibasilar atelectasis/scarring. Unchanged linear consolidation within the basal right lower lobe. There is no free air. Unremarkable unenhanced spleen, pancreas, gallbladder and adrenal glands. Cirrhotic liver. No hepatic mass identified. There are a few mildly hyperdense indeterminate right renal lesions measuring up to 1.5 cm. The characterize on this study, possibly complex cysts. No renal or ureteral calculi or hydronephrosis. Prostatomegaly. There is indeterminate hyperdense focus noted and the region of the seminal vesicles near the midline measuring 1.1 cm on image 329, unchanged. Moderate bladder wall thickening with partial distention. Atherosclerosis of aorta with infrarenal ectasia, 2.8 cm. No lymphadenopathy. No bowel obstruction or bowel wall thickening. Trace ascites. Colonic diverticulosis. Noninflamed appendix. Tiny fat filled umbilical hernia. Degenerative and postoperative changes of the spine. IMPRESSION: 1. No ureteral calculi or hydronephrosis. 2. Prostatomegaly with evidence of chronic outlet obstruction. 3. No bowel obstruction or bowel wall thickening. 4. Colonic diverticulosis. 5. There are few indeterminate right renal lesions measuring up to 1.5 cm, incompletely characterized on this study and possibly representing complex cysts. 6 month follow-up renal ultrasound recommended. 6. Additional findings as above. ACT 112: Negative or not required by law. The above report was generated using voice recognition software. It may contain grammatical, syntax or spelling errors. Electronically signed by: Dominick George M.D. 02/24/2024 9:11 AM ECG Additional Comments: Sinus rhythm with premature atrial complexes without acute ST segment T wave changes Code Status & VTE Plan Code Status DNR/DNI VTE Prophylaxis Plan VTE Prophylaxis will be ordered: Yes Supervising Physician Co-Signing Physician Notes I personally saw and examined the patient. I verified all marroquin points and agree with Mynor Jaeger PA-C with the following exceptions and/or additions: 78 year old male presents to the ER with nausea and abdominal pain. Difficult to get a good story from the patient however as he was just admitted but cannot tell me if he was having the same symptoms at that time. No etiology on CT without contrast. Generalized weakness and fatigue since his prior discharge. O/E HS RRR, no murmurs, left chest wall hematoma without skin breakdown or necrosis, Chest CTAB, mild epigastric tenderness, no guarding or rebound A/P Abdominal pain with nausea - ondansetron PRN, famotidine 20mg IV, if ongoing symptoms consider CT with IV contrast Generalized weakness - procalcitonin negative. Hematoma no worse. Hypomagnesemia - replacement given and will repeat level in AM, possibly contributing towards symptoms. Recent diagnosis of checkpoint encephalitis, reportedly fully improved cognition from this, unable to get collateral history at this time to make sure he is back to baseline. PG Care Time/CCT Total # of Minutes Spent Total Time Spent with Patient: Total time spent is greater than 50% in coordination of care (as documented) at patient's floor/unit and/or counseling patient: [place] [address] INT INP/OBS CARE 3/75MIN Patient Type Established Medical Decision Making High Complexity Diagnoses Weakness R53.1 Hypoxia R09.02 Hypomagnesemia E83.42 Abdominal pain R10.9 Hematoma of chest wall S20.219A Subtherapeutic international normalized ratio (INR) R79.1 History of pulmonary embolism Z86.711
[2024-02-24] MEDS: MAGNESIUM SULFATE / D5W 1 GM/100 ML BAG IV SCH (10:18)
[2024-02-24] MEDS: CALCIUM GLUCONATE 1,000 MG/60 ML BAG IV STA (10:56)
[2024-02-24 11:16] LABS: Appearance Urine Clear (Clear); Bacteria Urine Automated None Seen (None Seen); Bilirubin Urine Negative (Negative); Blood Urine Negative (Negative); Cast Urine Automated 0-2 /lpf (0-2); Color Urine Yellow; Epithelial Cell Urine Auto 0-2 /hpf (0-2); Glucose Urine UA Negative (Negative); Ketones Urine Trace (Negative); Leukocyte Esterase Urine 1+ (Negative); Nitrite Urine Negative (Negative); Protein Urine 1+ (Negative); RBC Urine Automated 0-2 /hpf (0-2); Specific Gravity Urine 1.018 (1.000-1.030); Urobilinogen Urine Negative (Negative)
--- NOTE | 2024-02-24 12:19 | Surgery Consultation ---
Date of Consultation February 24, 2024 Assessment & Plan (1) Melanoma: (2) Hematoma of chest wall: Plan 78-year-old gentleman with a large left chest wall hematoma which has been present for over a month. No signs of infection. I would not recommend any surgical intervention on this at this time. Cold compresses to the area. This will resolve on its own. We will sign off. Please call with questions or concerns. History of Present Illness Reason for Consultation: left chest wall hematoma Requesting Physician: Mynor Jaeger Attending Physician: Mynor Jaeger History of Present Illness Tio is a 78-year-old male with a past medical history significant for pulmonary embolism (failed warfarin therapy, recently on Lovenox), large left chest wall hematoma and acute blood loss anemia due to therapeutic Lovenox use, stage III melanoma started on pembrolizumab 01/12/2023, atrial fibrillation, stage III CKD, checkpoint inhibitor encephalitis who presented to the [facility] ED on 02/24/24 due to diffuse abdominal pain, nausea, and poor oral intake. Initially noted to be stable on arrival but subsequently came hypoxic to 88% on room air. Labs were significant for a stable hemoglobin, INR of 1.5, ionized calcium 1.07, mag of 1.3, total bili of 1.5, procalcitonin and TSH within normal limits, and full respiratory Bio[employer] negative. CT of the head and brain without contrast was negative for acute findings. Chest x-ray was read as cardiomegaly with pulmonary vascular congestion and ill-defined opacity of the left hemithorax which was redemonstrated and likely secondary to his persistent left chest wall hematoma. CT abdomen pelvis without contrast noted prostamegaly with evidence of chronic outlet obstruction, diverticulosis, indeterminate right renal lesions measuring up to 1.5 cm, incompletely characterized due to lack of contrast possibly representing complex cyst. 6- month follow-up renal ultrasound is recommended. Otherwise CT was unremarkable. I have been asked to see the patient due to the large chest left wall hematoma. He does not have any pain or tenderness. Allergies Allergy/AdvReac Type Severity Reaction Status Date / Time gabapentin Allergy Intermediate Rash Verified 02/24/24 09:51 tramadol Allergy Intermediate Rash and Verified 02/24/24 09:51 itchiness hydrocodone Allergy Mild itchy Verified 02/24/24 09:51 oxycodone Allergy Mild itchy Verified 02/24/24 09:51 carbamazepine Allergy Unknown Unknown Verified 02/24/24 09:51 ciprofloxacin Allergy Unknown Unknown Verified 02/24/24 09:51 Home Medications Medication Instructions Recorded Confirmed Type acetaminophen 650 mg 650 mg PO Q4H PRN Pain 01/27/24 02/24/24 History tablet,extended release allopurinol 100 mg tablet 100 mg PO QAM 01/27/24 02/24/24 History fentanyl 25 mcg/hr transdermal 1 patch transdermal Q3D #10 ea 02/06/24 02/24/24 Rx patch ferrous sulfate 325 mg (65 mg 325 mg PO BIDM #60 tabs 02/06/24 02/24/24 Rx iron) tablet,delayed release metoprolol succinate 50 mg 50 mg PO QAM #30 tabs 02/06/24 02/24/24 Rx tablet,extended release 24 hr sennosides 8.6 mg-docusate sodium 1 tab PO BID #60 tabs 02/06/24 02/24/24 Rx 50 mg tablet (Senokot-S) polyethylene glycol 3350 17 gram 17 g PO QAM 02/10/24 02/24/24 History oral powder packet (Miralax) warfarin 5 mg tablet See Rx Instructions PO UD #120 tabs 02/12/24 02/24/24 Rx furosemide 40 mg tablet 40 mg PO DAILY PRN weight 02/24/24 02/24/24 History gain/swelling potassium citrate 10 mEq (1,080 10 meq PO BID 02/24/24 02/24/24 History mg) tablet,extended release Patient History Medical History Obesity Encephalitis Pulmonary embolism on long-term anticoagulation therapy Atrial fibrillation and flutter Pulmonary embolism Constipated COVID-19 Osteoarthritis Surgical History History of left shoulder replacement History of right shoulder replacement History of total left knee replacement (TKR) History of total right knee replacement (TKR) with revision History of colonoscopy History of inguinal hernia repair History of cancer surgery Left side of neck resection + lymph node removal History of tooth extraction History of tonsillectomy and adenoidectomy History of sinus surgery History of cystoscopy History of cataract surgery bilateral History of back surgery L4-L5 with screws Family History Family/Other Diabetes Heart disease Nephrolithiasis Other No family history of adverse response to anesthesia Social History Smoking Status: Never smoker Second Hand Exposure: No; Do You Dip or Chew Tobacco: No; Hx Alcohol Use: No Hx Substance Use: No Preferred Language: Gambian Communication Ability: Effective Maintenance Person Required: No Beliefs That Will Affect Care: None Current Living Situation: Spouse current occupational status: retired Feels Safe at Home: Yes Seatbelt Use: always Assistive Devices: Cane and Walker Review of Systems Review of Systems: All systems reviewed & are unremarkable except as noted in HPI & below Physical Exam Constitutional: WD/WN, vitals as above Eyes: PERRL, conjunctivae normal, anicteric sclerae Neck: trachea midline, no thyromegaly Respiratory: normal respiratory effort; no respiratory distress and no labored breathing Cardiovascular: Rate/Rhythm: regular rate and regular rhythm Chest (Breasts): Additional Comments: Large hematoma anterior upper left chest wall, no cellulitis, induration, tenderness Skin: no rashes, warm and dry Psychiatric: A+Ox3, euthymic affect Results & Data Vital Signs (Past 12 Hours) Vital Signs Temp Pulse Resp BP BP Pulse Ox O2 Del Method 02/24/24 12:04 90 02/24/24 11:01 22 119/59 L 96 Room Air 02/24/24 09:18 24 135/60 97 Nasal Cannula 02/24/24 08:43 88 L Room Air, Nasal Cannula 02/24/24 08:05 82 02/24/24 08:02 82 24 90 Room Air 02/24/24 07:01 36 C L 90 16 124/80 92 Room Air O2 Flow Rate 02/24/24 12:04 02/24/24 11:01 02/24/24 09:18 2 02/24/24 08:43 0 02/24/24 08:05 02/24/24 08:02 02/24/24 07:01 Laboratory Results 02/24/24 02/24/24 02/24/24 Range/Units Unknown 08:00 07:53 WBC 8.43 (4.8-10.8) K/ul RBC 3.43 L (4.70-6.10) M/uL Hgb 10.8 L (14.0-18.0) g/dl POC Hgb 10.5 L (14.0-18.0) g/dl Hct 33.9 L (42.0-52.0) % POC Hct 31 L (42-52) % MCV 98.8 (80.0-100.0) fL MCH 31.5 (25.0-34.0) pg MCHC 31.9 L (32.0-36.0) g/dL RDW Std Deviation 54.4 H (36.4-46.3) fL RDW Coeff of Lisbeth 14.9 H (11.5-14.5) % Plt Count 157 (130-400) K/uL MPV 9.3 L (9.4-12.4) fL Immature Gran % (Auto) 0.5 % Neut % (Auto) 59.6 % Lymph % (Auto) 27.6 % [place] % (Auto) 9.4 % Eos % (Auto) 2.5 % Baso % (Auto) 0.4 % Neut # (Auto) 5.03 (1.40-6.50) K/uL Lymph # (Auto) 2.33 (1.20-3.40) K/uL [place] # (Auto) 0.79 H (0.11-0.59) K/uL Eos # (Auto) 0.21 (0.00-0.50) K/uL Baso # (Auto) 0.03 (0.00-0.20) K/uL Immature Gran # (Auto) 0.04 (0.01-0.20) K/uL PT 15.8 H (9.0-12.0) Seconds INR 1.5 H (0.9-1.1) APTT 34 H (21-31) Seconds PTT Ratio 1.3 POC Sodium 134 L (135-144) mmol/L Sodium 134 L (136-145) mmol/L POC Potassium 3.4 (3.3-5.0) mmol/L Potassium 3.5 (3.5-5.1) mmol/L POC Chloride 97 L (101-112) mmol/L Chloride 100 (98-107) mmol/L Carbon Dioxide 27 (21-32) mmol/L POC Total CO2 24 (24-31) mmol/L Anion Gap 7 (3-11) POC Anion Gap 17.0 (16-25) mmol/L POC BUN 14 (7-18) mg/dl BUN 16 (6-23) mg/dl Creatinine 1.01 (0.6-1.4) mg/dl POC Creatinine 1.1 (0.6-1.3) mg/dl Est Cr Clr Drug Dosing 71.1 ml/min Est GFR ( Amer) 81.6 ml/min Est GFR (Non-Af Amer) 70.4 ml/min BUN/Creatinine Ratio 15.8 (10-20) Glucose 108 H (70-99(Fasting)) mg/dl POC Glucose (other) 107 H (70-99) mg/dl Lactate 1.5 (0.4-2.0) mmol/L Calcium 7.8 L (8.6-10.3) mg/dl POC Ioniz Calcium Laura 1.07 L (1.12-1.32) mmol/l Phosphorus 2.3 L (2.5-4.9) mg/dl Magnesium 1.3 L (1.7-2.4) mg/dl Total Bilirubin 1.5 H (0.2-1.0) mg/dl AST 27 (13-39) U/L ALT 23 (7-52) U/L Alkaline Phosphatase 90 (34-104) U/L Troponin I High Sens 11.7 (0-20) pg/ml B-Natriuretic Peptide 103 H (0-100) pg/ml Total Protein 5.2 L (6.0-8.3) gm/dl Albumin 3.0 L (3.4-5.0) gm/dl Globulin 2.2 L (2.5-4.0) gm/dl Albumin/Globulin Ratio 1.4 (0.9-2) Lipase 19 (11-82) U/L Procalcitonin 0.42 (0-0.5) ng/ml TSH 2.017 (0.300-4.500) uIu/ml Random Cortisol 2.39 mcg/dl Urine Color Yellow Urine Appearance Clear (Clear) Urine pH 7.0 (4.5-7.5) Ur Specific [place] 1.018 (1.000-1.030) Urine Protein 1+ H (Negative) Urine Glucose (UA) Negative (Negative) Urine Ketones Trace H (Negative) Urine Blood Negative (Negative) Urine Nitrite Negative (Negative) Urine Bilirubin Negative (Negative) Urine Urobilinogen Negative (Negative) Ur Leukocyte Esterase 1+ H (Negative) Urine WBC (Auto) 6-10 H (0-5) /hpf Urine RBC (Auto) 0-2 (0-2) /hpf U Hyaline Cast (Auto) 0-2 (0-2) /lpf U Epithel Cells (Auto) 0-2 (0-2) /hpf Urine Bacteria (Auto) None Seen (None Seen) Adenovirus (PCR) Not Detected (NotDetected) B. pertussis DNA (PCR) Not Detected (NotDetected) B.parapertussis DNA PCR Not Detected (NotDetected) C. pneumoniae DNA (PCR) Not Detected (NotDetected) Coronavirus OC43 (PCR) Not Detected (NotDetected) Coronavirus HKU1 (PCR) Not Detected (NotDetected) Coronavirus 229E (PCR) Not Detected (NotDetected) SARS-CoV-2 (PCR) Not Detected (NotDetected) Coronavirus NL63 (PCR) Not Detected (NotDetected) Human Metapneumovir PCR Not Detected (NotDetected) Influenza Type A (PCR) Not Detected (NotDetected) Influenza Type B (PCR) Not Detected (NotDetected) M. pneumoniae (PCR) Not Detected (NotDetected) Parainfluenza 1 (PCR) Not Detected (NotDetected) Parainfluenza 2 (PCR) Not Detected (NotDetected) Parainfluenza 3 (PCR) Not Detected (NotDetected) Parainfluenza 4 (PCR) Not Detected (NotDetected) RSV (PCR) Not Detected (NotDetected) Entero/Rhino (PCR) Not Detected (NotDetected)
[2024-02-24] MEDS ORDERED: WARFARIN SOD 5 MG TAB PO SCH (15:45)
[2024-02-24] MEDS: CHECK fentaNYL PATCH PLACEMENT SCH (17:25)
[2024-02-24] MEDS: fentaNYL 25 MCG/HR TDSY TD SCH (17:25)
[2024-02-24] MEDS: FERROUS SULFATE 325 MG TAB PO SCH (17:26)
[2024-02-24] MEDS: WARFARIN SOD 7.5 MG TAB PO SCH (17:27)
[2024-02-24] MEDS: ONDANSETRON INJ 2 MG/ML 2 ML VIAL IV PRN (21:40)
[2024-02-24] MEDS: FAMOTIDINE 20MG IV PUSH 20 MG/5 ML SYR IV ONE (21:44)
[2024-02-24] MEDS: PROCHLORPERAZINE 5 MG in SYRINGE 4 ML IV ONE (23:35)
[2024-02-25] MEDS: diphenhydrAMINE 2%/ZINC 0.1% CREAM 28.4GM TUBE EXT PRN (03:13)
[2024-02-25 07:03] LABS: Basophils # (auto) 0.04 K/uL (0.00-0.20); Basophils % (auto) 0.6 %; Eosinophils # (auto) 0.23 K/uL (0.00-0.50); Eosinophils % (auto) 3.2 %; Hematocrit (blood only) 31.3 % (42.0-52.0); Hemoglobin 9.9 g/dl (14.0-18.0); Immature Granulocytes # (auto) 0.04 K/uL (0.01-0.20); Immature Granulocytes % (auto) 0.6 %; Lymphocytes # (auto) 1.69 K/uL (1.20-3.40); Lymphocytes % (auto) 23.3 %; Mean Corpuscular Hgb Conc 31.6 g/dL (32.0-36.0); Mean Corpuscular Volume 98.1 fL (80.0-100.0); Mean Platelet Volume 9.6 fL (9.4-12.4); Monocytes # (auto) 0.87 K/uL (0.11-0.59); Neutrophils # (auto) 4.37 K/uL (1.40-6.50); Neutrophils % (auto) 60.3 %; Platelet Count 153 K/uL (130-400); RDW Coefficient of Variation 14.9 % (11.5-14.5); RDW Standard Deviation 54.1 fL (36.4-46.3); Red Blood Count 3.19 M/uL (4.70-6.10); White Blood Count 7.24 K/ul (4.8-10.8)
[2024-02-25 07:24] LABS: Albumin Globulin Ratio 1.3 (0.9-2); Albumin Level 2.7 gm/dl (3.4-5.0); BUN Creatinine Ratio 12.2 (10-20); Bilirubin,Total 1.4 mg/dl (0.2-1.0); Calcium 7.8 mg/dl (8.6-10.3); Est GFR (African American) 69.8 ml/min; Est GFR (Non-African American) 60.2 ml/min; Globulin 2.1 gm/dl (2.5-4.0); Magnesium 1.8 mg/dl (1.7-2.4); Potassium 3.6 mmol/L (3.5-5.1); Total Protein 4.8 gm/dl (6.0-8.3)
[2024-02-25] MEDS: allopurinoL 100 MG TAB PO SCH (08:00)
[2024-02-25] MEDS: METOPROLOL SUCC 50MG EXT REL TAB PO SCH (08:00)
[2024-02-25 08:51] LABS: INR 1.5 (0.9-1.1); Prothrombin Time 15.8 Seconds (9.0-12.0)
[2024-02-25] MEDS: POLYETHYLENE (MIRALAX) 17 GM PACK PO SCH (10:48)
--- NOTE | 2024-02-25 12:12 | Electrocardiogram Report ---
Test Reason : Blood Pressure : */* mmHG Vent. Rate : 89 BPM Atrial Rate : 89 BPM P-R Int : 172 ms QRS Dur : 76 ms QT Int : 350 ms P-R-T Axes : 27 -39 -31 degrees QTcB Int : 425 ms Sinus rhythm with Premature atrial complexes Left axis deviation Low voltage QRS Nonspecific T wave abnormality Abnormal ECG When compared with ECG of 10-Feb-2024 15:37, Premature atrial complexes are now Present Confirmed by Henry Abdi [id number]) on 02/25/2024 12:11:37 PM Referred By: REFERRED SELF Confirmed By: Henry Abdi
[2024-02-25] MEDS: FUROSEMIDE 40 MG/4 ML VIAL IV ONE (13:30)
--- NOTE | 2024-02-25 13:35 | Hospitalist Progress Note ---
Date of Service February 25, 2024 Assessment & Plan (1) Weakness: Plan: Presented to the ED with multiple complaints including generalized weakness with ongoing clinical decline, poor oral intake, nausea, and generalized abdominal discomfort -Likely due to physivcal deconditioning Patient has had multiple admissions over the past 3 months including multiple inpatient rehab stays and was recently discharged home with health services on 02/06/2024 Fall/aspiration precautions PT/OT consults Bilateral SCDs for DVT prophylaxis for now Heart healthy diet with 2 g sodium and 2 L fluid restriction (2) Hypoxia: Plan: Patient was noted to be transiently hypoxic into the high 80s on room air while in the ED Chest x-ray shows cardiomegaly with pulmonary vascular congestion without overt volume overload and is without signs of pneumonia -Will obtain BNP and 2 D ECHO to r/o CHF Will give a dose of IV lasix 40 mg As needed O2 to keep SpO2 at or above 92% (3) Hypomagnesemia: Plan: Likely due to poor oral intake and as needed diuretic use Will give initial 4 bags of 1 g IV mag sulfate admission Follow daily renal function electrolytes (4) Hematoma of chest wall: Plan: Patient continues to have his persistent large left chest wall hematoma Does not appear to have increased in size but has not improved since last admission and continues to cause discomfort Will continue patient on his fentanyl patch changed every 72 hours for now No surgical intervention needed for now (5) Abdominal pain: Plan: Patient has been experiencing mild, generalized abdominal discomfort Patient is a difficult time describing the pain, does not appear to stay in [address] of the abdomen pelvis without contrast was negative for acute findings suggest this pain Bilirubin elevated at 1.5 today but other LFTs are within normal limits, negative Farmer sign on exam Will follow random cortisol ordered on admission to evaluate for possible deficiency Pain could be partially related to bruising from SQ Lovenox use as he has multiple bruised areas of recent injections As needed Zofran for nausea and Tylenol for pain at this (6) Subtherapeutic international normalized ratio (INR): Plan: Patient was initially discharged with SQ Lovenox for DVT prophylaxis on 02/06/2024 due to his recent history of large chest wall hematoma while on therapeutic Lovenox Previous admissions had noted patient to have failed warfarin therapy as chronic PEs were noted while on warfarin Patient explains that he was bridged back to warfarin by the anticoagulation clinic, last dose of subcu Lovenox was 02/22/2024 Did not have his dose of warfarin today prior to arrival Will wait to give dose of Lovenox today until patient is evaluated by general surgery for possible large left chest wall hematoma evacuation Follow daily INR (7) History of pulmonary embolism: Plan: Patient was previously on warfarin then switched to therapeutic Lovenox when chronic PEs were found during previous admission few months ago Subsequently experienced large left chest wall hematoma while on therapeutic Lovenox Since being discharged home on 02/06/2024 and following with outpatient anticoagulation clinic patient was transition back to warfarin Patient is without recurrent pleuritic chest pain, has been hemodynamically stable, without tachycardia, without significant respiratory distress Hold CT of the chest for evaluation of new PEs at this time, will plan to continue warfarin based on daily INR once general surgery evaluates the patient determine need for hematoma evacuation during this admission Plan continue to monitor, patient may benefit from SNF Admission and Anticipated Discharge Date Admission Date: February 24, 2024 Subjective patient seen and examined, participating in PT Review of Systems Review of Systems: All systems reviewed are negative, apart from the ones contained in the history. Physical Exam Physical Exam: The patient is awake, alert and oriented 3, well developed and well nourished, normocephalic and atraumatic, lying in bed and in no acute distress. HEENT--PERRL, EOMI, mucous membranes and oropharynx mildly dry Neck--supple. No JVD. No bruits. Thyroid normal, trachea midline, no adenopathy. Heart--normal S1 and S2. No murmurs, rubs or gallops. Lungs--clear bilaterally, no respiratory distress, no accessory muscle use. Abdomen--normal bowel sounds and soft. Extremities--no cyanosis or clubbing. No edema. Dermatologic--normal skin turgor, normal color, no abnormal lymph nodes, no rash. Neurologic--cranial nerves II through XII grossly intact. Rheumatologic--normal range of motion. Psychiatric--normal affect. Results & Data Results & Data Vital Signs (Past 12 Hours) Vital Signs Temp Pulse Pulse Resp BP BP Pulse Ox 02/25/24 11:33 98.1 F 86 18 105/60 95 02/25/24 09:20 88 02/25/24 08:17 99.7 F H 88 18 113/66 95 02/25/24 08:04 02/25/24 08:00 02/25/24 02:52 98.2 F 110 H 20 116/67 94 Pulse Ox O2 Del Method O2 Del Method O2 Flow Rate 02/25/24 11:33 Nasal Cannula 2 02/25/24 09:20 02/25/24 08:17 Nasal Cannula 2 02/25/24 08:04 Room Air 02/25/24 08:00 93 Room Air 02/25/24 02:52 Nasal Cannula 2 PG Care Time/CCT Total # of Minutes Spent Total Time Spent with Patient: Total time spent is greater than 50% in coordination of care (as documented) at patient's floor/unit and/or counseling patient: Coding Level of Care Code 85734 SUB INP/OBS CARE 2/35MIN Diagnoses Weakness R53.1 Hypoxia R09.02 Hypomagnesemia E83.42 Hematoma of chest wall S20.219A Abdominal pain R10.9 Subtherapeutic international normalized ratio (INR) R79.1 History of pulmonary embolism Z86.711 Time Spent (min) 35
[2024-02-25] MEDS: ACETAMINOPHEN 325 MG TAB PO PRN (17:17)
[2024-02-25] MEDS: 4.5GM X1 IV STA (17:46)
--- NOTE | 2024-02-25 22:06 | Communication Note ---
Date of Service: February 25, 2024 Notified by nursing of concern for low blood pressures this evening. Was started on Zosyn today after a new fever of 38 and BP= 86/53. MRSA nares negative. Pt received 40 IV lasix today, due to pulmonary vascular congestion of CXR. Evaluated pt at bedside- asymptomatic. Denies chest pain, dyspnea, lightheadedness, dizziness. Lungs clear to auscultation B/L, no LE edema. Albumin= 2.7-> 25mg on Albumin ordered. Repeat labs without leucocytosis, increased creatine 1.15-> 1.51 (baseline of 1), procal= 0.63, lactate= 1.3. Repeat CXR with improvement in pulm vascular congestion per my read. Reviewed TTE from 01/2024 and EF= 60-65%. Appears dry on exam, increased creatine, and hypotension which has improved with albumin-> will cautiously give 500mL IVF slowly at 80ml/hr for ELISABETH.
[2024-02-25] MEDS: ALBUMIN 25% 25 GM/100 ML VIAL IV ONE (22:33)
[2024-02-25 23:03] LABS: Basophils # (auto) 0.05 K/uL (0.00-0.20); Basophils % (auto) 0.7 %; Eosinophils # (auto) 0.34 K/uL (0.00-0.50); Eosinophils % (auto) 4.8 %; Hematocrit (blood only) 32.2 % (42.0-52.0); Hemoglobin 10.3 g/dl (14.0-18.0); Immature Granulocytes # (auto) 0.03 K/uL (0.01-0.20); Immature Granulocytes % (auto) 0.4 %; Lymphocytes # (auto) 1.49 K/uL (1.20-3.40); Mean Corpuscular Hemoglobin 31.4 pg (25.0-34.0); Mean Corpuscular Volume 98.2 fL (80.0-100.0); Mean Platelet Volume 8.9 fL (9.4-12.4); Monocytes # (auto) 0.96 K/uL (0.11-0.59); Monocytes % (auto) 13.6 %; Neutrophils # (auto) 4.21 K/uL (1.40-6.50); Neutrophils % (auto) 59.5 %; Platelet Count 155 K/uL (130-400); RDW Coefficient of Variation 14.7 % (11.5-14.5); RDW Standard Deviation 53.9 fL (36.4-46.3); Red Blood Count 3.28 M/uL (4.70-6.10); White Blood Count 7.08 K/ul (4.8-10.8)
[2024-02-25 23:27] LABS: Albumin Globulin Ratio 1.4 (0.9-2); BUN Creatinine Ratio 10.6 (10-20); Bilirubin,Total 1.5 mg/dl (0.2-1.0); Calcium 8.3 mg/dl (8.6-10.3); Est GFR (African American) 50.2 ml/min; Est GFR (Non-African American) 43.3 ml/min; Globulin 2.1 gm/dl (2.5-4.0); Magnesium 1.8 mg/dl (1.7-2.4); Potassium 3.9 mmol/L (3.5-5.1); Total Protein 5.1 gm/dl (6.0-8.3)
[2024-02-25 23:32] LABS: Troponin I High Sensitivity 14.5 pg/ml (0-20)
[2024-02-26] MEDS: PIPERACILLIN/TAZOBACTAM 4.5 GM/100 ML BAG IV SCH (00:14)
[2024-02-26] MEDS: SODIUM CHLORIDE 0.9% 500 ML IV SCH (02:46)
[2024-02-26 05:58] LABS: Basophils # (auto) 0.04 K/uL (0.00-0.20); Basophils % (auto) 0.7 %; Eosinophils # (auto) 0.36 K/uL (0.00-0.50); Eosinophils % (auto) 6.2 %; Hematocrit (blood only) 28.5 % (42.0-52.0); Hemoglobin 9.3 g/dl (14.0-18.0); Immature Granulocytes # (auto) 0.03 K/uL (0.01-0.20); Immature Granulocytes % (auto) 0.5 %; Lymphocytes # (auto) 1.37 K/uL (1.20-3.40); Lymphocytes % (auto) 23.4 %; Mean Corpuscular Hemoglobin 31.4 pg (25.0-34.0); Mean Corpuscular Hgb Conc 32.6 g/dL (32.0-36.0); Mean Corpuscular Volume 96.3 fL (80.0-100.0); Mean Platelet Volume 9.3 fL (9.4-12.4); Neutrophils # (auto) 3.35 K/uL (1.40-6.50); Neutrophils % (auto) 57.2 %; Platelet Count 136 K/uL (130-400); RDW Coefficient of Variation 14.7 % (11.5-14.5); RDW Standard Deviation 52.3 fL (36.4-46.3); Red Blood Count 2.96 M/uL (4.70-6.10); White Blood Count 5.85 K/ul (4.8-10.8)
[2024-02-26 06:12] LABS: Albumin Globulin Ratio 1.6 (0.9-2); BUN Creatinine Ratio 10.4 (10-20); Bilirubin,Total 1.4 mg/dl (0.2-1.0); Creatinine Clr Calc Pharmacy 50.3 ml/min; Est GFR (African American) 53.2 ml/min; Est GFR (Non-African American) 45.9 ml/min; Globulin 1.9 gm/dl (2.5-4.0); Magnesium 1.7 mg/dl (1.7-2.4); Potassium 3.5 mmol/L (3.5-5.1); Total Protein 4.9 gm/dl (6.0-8.3)
[2024-02-26 06:24] LABS: Prothrombin Time 20.8 Seconds (9.0-12.0)
--- NOTE | 2024-02-26 06:56 | XRay Report ---
XR chest 1V portable CLINICAL HISTORY: New oxygen requirement TECHNIQUE: Single frontal radiograph of the chest was obtained. Comparison: Comparison is made to chest radiograph 02/24/2024 FINDINGS: Reverse shoulder arthroplasty is noted bilaterally. Cardiomegaly is noted. Soft tissue density projec ting over the left hemithorax is unchanged. No evidence of pleural effusion or pneumothorax. IMPRESSION: Density projecting over the left hemithorax, unchanged from prior exam, is favored to represent soft tissues rather than interspace opacity. ACT 112: Negative or not required by law. Electronically signed by: Robert Gerber M.D. 02/26/2024 6:54 AM
--- NOTE | 2024-02-26 14:42 | Hospitalist Progress Note ---
Date of Service February 26, 2024 Assessment & Plan (1) Fever: Plan: Patient spiked a low-grade temperature last evening, blood pressure very soft in the 80s systolic Blood cultures were obtained and he was empirically started on IV Zosyn He also received a bolus of IV fluids. Blood cultures pending (2) Weakness: Plan: Presented to the ED with multiple complaints including generalized weakness with ongoing clinical decline, poor oral intake, nausea, and generalized abdominal discomfort -Likely due to physivcal deconditioning Patient has had multiple admissions over the past 3 months including multiple inpatient rehab stays and was recently discharged home with health services on 02/06/2024 Fall/aspiration precautions PT/OT consults Bilateral SCDs for DVT prophylaxis for now Heart healthy diet with 2 g sodium and 2 L fluid restriction (3) Hypoxia: Plan: Patient was noted to be transiently hypoxic into the high 80s on room air while in the ED Chest x-ray shows cardiomegaly with pulmonary vascular congestion without overt volume overload and is without signs of pneumonia -BNP is within normal limits, 65, last 2D echo in January 2024 showed preserved ejection fraction 60-65% Will give a dose of IV lasix 40 mg As needed O2 to keep SpO2 at or above 92% (4) Hypomagnesemia: Plan: replaced (5) Hematoma of chest wall: Plan: Patient continues to have his persistent large left chest wall hematoma Does not appear to have increased in size but has not improved since last admission and continues to cause discomfort Will continue patient on his fentanyl patch changed every 72 hours for now No surgical intervention needed for now (6) Abdominal pain: Plan: Patient has been experiencing mild, generalized abdominal discomfort Patient is a difficult time describing the pain, does not appear to stay in [address] of the abdomen pelvis without contrast was negative for acute findings s uggest this pain Bilirubin elevated at 1.5 today but other LFTs are within normal limits, negative Farmer sign on exam Will follow random cortisol ordered on admission to evaluate for possible def iciency Pain could be partially related to bruising from SQ Lovenox use as he has multiple bruised areas of recent injections As needed Zofran for nausea and Tylenol for pain at this (7) Subtherapeutic international normalized ratio (INR): Plan: Patient was initially discharged with SQ Lovenox for DVT prophylaxis on 02/06/2024 due to his recent history of large chest wall hematoma while on therapeutic Lovenox Previous admissions had noted patient to have failed warfarin therapy as chronic PEs were noted while on warfarin Patient explains that he was bridged back to warfarin by the anticoagulation clinic, last dose of subcu Lovenox was 02/22/2024 Did not have his dose of warfarin today prior to arrival Will wait to give dose of Lovenox today until patient is evaluated by general surgery for possible large left chest wall hematoma evacuation Follow daily INR (8) History of pulmonary embolism: Plan: Patient was previously on warfarin then switched to therapeutic Lovenox when chronic PEs were found during previous admission few months ago Subsequently experienced large left chest wall hematoma while on therapeutic Lovenox Since being discharged home on 02/06/2024 and following with outpatient anticoagulation clinic patient was transition back to warfarin Patient is without recurrent pleuritic chest pain, has been hemodynamically stable, without tachycardia, without significant respiratory distress Hold CT of the chest for evaluation of new PEs at this time, will plan to continue warfarin based on daily INR once general surgery evaluates the patient determine need for hematoma evacuation during this admission Plan continue to monitor, patient may benefit from SNF Admission and Anticipated Discharge Date Admission Date: February 24, 2024 Subjective patient seen and examined, Spiked a low-grade temperature last evening, was seen sitting up in the chair no new complaints. Review of Systems Review of Systems: All systems reviewed are negative, apart from the ones contained in the history. Physical Exam Physical Exam: The patient is awake, alert and oriented 3, well developed and well nourished, normocephalic and atraumatic, lying in bed and in no acute distress. HEENT--PERRL, EOMI, mucous membranes and oropharynx mildly dry Neck--supple. No JVD. No bruits. Thyroid normal, trachea midline, no adenopathy. Heart--normal S1 and S2. No murmurs, rubs or gallops. Lungs--clear bilaterally, no respiratory distress, no accessory muscle use. Abdomen--normal bowel sounds and soft. Extremities--no cyanosis or clubbing. No edema. Dermatologic--normal skin turgor, normal color, no abnormal lymph nodes, no rash. Neurologic--cranial nerves II through XII grossly intact. Rheumatologic--normal range of motion. Psychiatric--normal affect. Results & Data Results & Data Vital Signs (Past 12 Hours) Vital Signs Temp Pulse Pulse Resp BP BP Pulse Ox 02/26/24 14:07 89 02/26/24 11:03 98.1 F 75 16 87/50 L 97 02/26/24 08:00 02/26/24 07:52 100.6 F H 89 16 118/64 93 02/26/24 07:50 02/26/24 07:17 80 02/26/24 03:12 99.9 F H 94 H 16 115/66 93 Pulse Ox O2 Del Method O2 Del Method O2 Flow Rate O2 Flow Rate 02/26/24 14:07 02/26/24 11:03 Nasal Cannula 2 02/26/24 08:00 93 Nasal Cannula 2 02/26/24 07:52 Room Air 02/26/24 07:50 Nasal Cannula 2 02/26/24 07:17 02/26/24 03:12 Nasal Cannula 2 PG Care Time/CCT Total # of Minutes Spent Total Time Spent with Patient: Total time spent is greater than 50% in coordination of care (as documented) at patient's floor/unit and/or counseling patient: Coding Level of Care Code 97922 SUB INP/OBS CARE 2/35MIN Diagnoses Fever R50.9 Weakness R53.1 Hypoxia R09.02 Hypomagnesemia E83.42 Hematoma of chest wall S20.219A Abdominal pain R10.9 Subtherapeutic international normalized ratio (INR) R79.1 History of pulmonary embolism Z86.711 Time Spent (min) 35
--- NOTE | 2024-02-26 15:34 | XCELERA ---
[id number] \\[id number]
[2024-02-26] MEDS: WARFARIN SOD 5 MG TAB PO SCH (16:10)
[2024-02-27 07:11] LABS: Basophils # (auto) 0.06 K/uL (0.00-0.20); Basophils % (auto) 0.9 %; Eosinophils # (auto) 0.41 K/uL (0.00-0.50); Eosinophils % (auto) 6.3 %; Hematocrit (blood only) 30.2 % (42.0-52.0); Hemoglobin 9.5 g/dl (14.0-18.0); Immature Granulocytes # (auto) 0.02 K/uL (0.01-0.20); Immature Granulocytes % (auto) 0.3 %; Lymphocytes % (auto) 26.2 %; Mean Corpuscular Hemoglobin 30.7 pg (25.0-34.0); Mean Corpuscular Hgb Conc 31.5 g/dL (32.0-36.0); Mean Corpuscular Volume 97.7 fL (80.0-100.0); Mean Platelet Volume 9.3 fL (9.4-12.4); Monocytes # (auto) 0.93 K/uL (0.11-0.59); Monocytes % (auto) 14.3 %; Neutrophils # (auto) 3.37 K/uL (1.40-6.50); Platelet Count 151 K/uL (130-400); RDW Coefficient of Variation 14.8 % (11.5-14.5); RDW Standard Deviation 53.3 fL (36.4-46.3); Red Blood Count 3.09 M/uL (4.70-6.10); White Blood Count 6.49 K/ul (4.8-10.8)
[2024-02-27 07:30] LABS: Albumin Globulin Ratio 1.4 (0.9-2); Albumin Level 2.9 gm/dl (3.4-5.0); BUN Creatinine Ratio 11.1 (10-20); Bilirubin,Total 1.2 mg/dl (0.2-1.0); Calcium 7.7 mg/dl (8.6-10.3); Creatinine Clr Calc Pharmacy 53.3 ml/min; Est GFR (African American) 57.5 ml/min; Est GFR (Non-African American) 49.6 ml/min; Globulin 2.1 gm/dl (2.5-4.0); Magnesium 1.6 mg/dl (1.7-2.4); Potassium 3.4 mmol/L (3.5-5.1)
[2024-02-27 07:35] LABS: INR 2.8 (0.9-1.1); Prothrombin Time 27.3 Seconds (9.0-12.0)
[2024-02-27] MEDS: MIDODRINE HCL 2.5 MG TAB PO SCH (11:58)
--- NOTE | 2024-02-27 12:13 | Hospitalist Progress Note ---
Date of Service February 27, 2024 Assessment & Plan (1) Fever: Plan: Patient spiked a low-grade temperature on 02/24, blood pressure very soft in the 100s systolic Blood cultures were obtained and he was empirically started on IV Zosyn He also received a bolus of IV fluids. Blood cultures pending (2) Weakness: Plan: Presented to the ED with multiple complaints including generalized weakness with ongoing clinical decline, poor oral intake, nausea, and generalized abdominal discomfort -Likely due to physivcal deconditioning Patient has had multiple admissions over the past 3 months including multiple inpatient rehab stays and was recently discharged home with health services on 02/06/2024 Fall/aspiration precautions PT/OT consults Bilateral SCDs for DVT prophylaxis for now Heart healthy diet with 2 g sodium and 2 L fluid restriction (3) Hypoxia: Plan: Patient was noted to be transiently hypoxic into the high 80s on room air while in the ED Chest x-ray shows cardiomegaly with pulmonary vascular congestion without overt volume overload and is without signs of pneumonia -BNP is within normal limits, 65, last 2D echo in January 2024 showed preserved ejection fraction 60-65% Will give a dose of IV lasix 40 mg As needed O2 to keep SpO2 at or above 92% (4) Hypomagnesemia: Plan: replaced (5) Hematoma of chest wall: Plan: Patient continues to have his persistent large left chest wall hematoma Does not appear to have increased in size but has not improved since last admission and continues to cause discomfort Will continue patient on his fentanyl patch changed every 72 hours for now No surgical intervention needed for now (6) Abdominal pain: Plan: Patient has been experiencing mild, generalized abdominal discomfort, although mostly around the right side Patient is a difficult time describing the pain, does not appear to stay in [address] of the abdomen pelvis without contrast was negative for acute findings suggest this pain Bilirubin elevated at 1.5 today but other LFTs are within normal limits, negative Farmer sign on exam PRN tylenol (7) Subtherapeutic international normalized ratio (INR): Plan: Patient was initially discharged with SQ Lovenox for DVT prophylaxis on 02/06/2024 due to his recent history of large chest wall hematoma while on therapeutic Lovenox Previous admissions had noted patient to have failed warfarin therapy as chronic PEs were noted while on warfarin Patient explains that he was bridged back to warfarin by the anticoagulation clinic, last dose of subcu Lovenox was 02/22/2024 Follow daily INR (8) History of pulmonary embolism: Plan: Patient was previously on warfarin then switched to therapeutic Lovenox when chronic PEs were found during previous admission few months ago Subsequently experienced large left chest wall hematoma while on therapeutic Lovenox Since being discharged home on 02/06/2024 and following with outpatient anticoagulation clinic patient was transition back to warfarin Patient is without recurrent pleuritic chest pain, has been hemodynamically stable, without tachycardia, without significant respiratory distress Hold CT of the chest for evaluation of new PEs at this time, will plan to continue warfarin based on daily INR once general surgery evaluates the patient determine need for hematoma evacuation during this admission Plan continue to monitor, patient may benefit from SNF Admission and Anticipated Discharge Date Admission Date: February 24, 2024 Subjective patient seen and examined, still gets some chills at night, feeling weak this morning Review of Systems Review of Systems: All systems reviewed are negative, apart from the ones contained in the history. Physical Exam Physical Exam: The patient is awake, alert and oriented 3, well developed and well nourished, normocephalic and atraumatic, lying in bed and in no acute distress. HEENT--PERRL, EOMI, mucous membranes and oropharynx mildly dry Neck--supple. No JVD. No bruits. Thyroid normal, trachea midline, no adenopat hy. Heart--normal S1 and S2. No murmurs, rubs or gallops. Lungs--clear bilaterally, no respiratory distress, no accessory muscle use. Abdomen--normal bowel sounds and soft. Extremities--no cyanosis or clubbing. No edema. Dermatologic--normal skin turgor, normal color, no abnormal lymph nodes, no rash. Neurologic--cranial nerves II through XII grossly intact. Rheumatologic--normal range of motion. Psychiatric--normal affect. Results & Data Results & Data Vital Signs (Past 12 Hours) Vital Signs Temp Pulse Pulse Resp BP BP Pulse Ox 02/27/24 08:00 02/27/24 07:57 98.8 F 84 16 108/52 L 91 02/27/24 07:57 02/27/24 07:05 78 02/27/24 03:21 111/62 02/27/24 02:17 99.1 F 88 18 93/57 L 93 Pulse Ox O2 Del Method O2 Del Method O2 Flow Rate O2 Flow Rate 02/27/24 08:00 91 Nasal Cannula 2 02/27/24 07:57 Nasal Cannula 2 02/27/24 07:57 Nasal Cannula 2 02/27/24 07:05 02/27/24 03:21 02/27/24 02:17 Nasal Cannula 2 PG Care Time/CCT Total # of Minutes Spent Total Time Spent with Patient: Total time spent is greater than 50% in coordination of care (as documented) at patient's floor/unit and/or counseling patient: Coding Level of Care Code 81766 SUB INP/OBS CARE 2/35MIN Diagnoses Fever R50.9 Weakness R53.1 Hypoxia R09.02 Hypomagnesemia E83.42 Hematoma of chest wall S20.219A Abdominal pain R10.9 Subtherapeutic international normalized ratio (INR) R79.1 History of pulmonary embolism Z86.711 Time Spent (min) 35
[2024-02-27] MEDS: MAGNESIUM SULFATE / D5W 1 GM/100 ML BAG IV SCH (12:24)
[2024-02-28 06:39] LABS: Hematocrit (blood only) 32.8 % (42.0-52.0); Hemoglobin 10.4 g/dl (14.0-18.0); Mean Corpuscular Hemoglobin 31.1 pg (25.0-34.0); Mean Corpuscular Hgb Conc 31.7 g/dL (32.0-36.0); Mean Corpuscular Volume 98.2 fL (80.0-100.0); Mean Platelet Volume 9.2 fL (9.4-12.4); Platelet Count 178 K/uL (130-400); RDW Coefficient of Variation 14.9 % (11.5-14.5); RDW Standard Deviation 54.1 fL (36.4-46.3); Red Blood Count 3.34 M/uL (4.70-6.10); White Blood Count 7.45 K/ul (4.8-10.8)
[2024-02-28 06:53] LABS: BUN Creatinine Ratio 11.1 (10-20); Creatinine Clr Calc Pharmacy 61.5 ml/min; Est GFR (African American) 68.3 ml/min; Est GFR (Non-African American) 58.9 ml/min; Potassium 3.4 mmol/L (3.5-5.1)
[2024-02-28] MEDS: MIDODRINE HCL 10 MG TAB PO SCH (11:59)
[2024-02-28] MEDS: FUROSEMIDE 40 MG/4 ML VIAL IV SCH (12:00)
--- NOTE | 2024-02-28 13:01 | Hospitalist Progress Note ---
Date of Service February 28, 2024 Assessment & Plan (1) Fever: Plan: Patient spiked a low-grade temperature on 02/24, blood pressure very soft in the 100s systolic Blood cultures were obtained and he was empirically started on IV Zosyn He also received a bolus of IV fluids. Blood cultures negative, zosyn has been discontinued (2) Weakness: Plan: Presented to the ED with multiple complaints including generalized weakness with ongoing clinical decline, poor oral intake, nausea, and generalized abdominal discomfort -Likely due to physivcal deconditioning Patient has had multiple admissions over the past 3 months including multiple inpatient rehab stays and was recently discharged home with health services on 02/06/2024 Fall/aspiration precautions PT/OT consults Bilateral SCDs for DVT prophylaxis for now Heart healthy diet with 2 g sodium and 2 L fluid restriction (3) Hypoxia: Plan: Patient was noted to be transiently hypoxic into the high 80s on room air while in the ED Chest x-ray shows cardiomegaly with pulmonary vascular congestion without overt volume overload and is without signs of pneumonia -BNP is within normal limits, 65, last 2D echo in January 2024 showed preserved ejection fraction 60-65% Will give a dose of IV lasix 40 mg As needed O2 to keep SpO2 at or above 92% (4) Hematoma of chest wall: Plan: Patient continues to have his persistent large left chest wall hematoma Does not appear to have increased in size but has not improved since last admission and continues to cause discomfort Will continue patient on his fentanyl patch changed every 72 hours for now No surgical intervention needed for now (5) Abdominal pain: Plan: Patient has been experiencing mild, generalized abdominal discomfort, although mostly around the right side Patient is a difficult time describing the pain, does not appear to stay in [address] of the abdomen pelvis without contrast was negative for acute findings suggest this pain Bilirubin elevated at 1.5 today but other LFTs are within normal limits, negative Farmer sign on exam PRN tylenol (6) Subtherapeutic international normalized ratio (INR): Plan: Resolved INR 2.8 today (7) History of pulmonary embolism: Plan: Patient was previously on warfarin then switched to therapeutic Lovenox when chronic PEs were found during previous admission few months ago Subsequently experienced large left chest wall hematoma while on therapeutic Lovenox Since being discharged home on 02/06/2024 and following with outpatient anticoagulation clinic patient was transition back to warfarin Patient is without recurrent pleuritic chest pain, has been hemodynamically stable, without tachycardia, without significant respiratory distress Hold CT of the chest for evaluation of new PEs at this time, will plan to continue warfarin based on daily INR once general surgery evaluates the patient determine need for hematoma evacuation during this admission (8) Hypomagnesemia: Plan: replaced Plan continue to monitor, hopefully d/c tomorrow with home health Admission and Anticipated Discharge Date Admission Date: February 24, 2024 Subjective patient seen and examined, sitting up in the chair, feels weak Review of Systems Review of Systems: All systems reviewed are negative, apart from the ones contained in the history. Physical Exam Physical Exam: The patient is awake, alert and oriented 3, well developed and well nourished, normocephalic and atraumatic, lying in bed and in no acute distress. HEENT--PERRL, EOMI, mucous membranes and oropharynx mildly dry Neck--supple. No JVD. No bruits. Thyroid normal, trachea midline, no adenopathy. Heart--normal S1 and S2. No murmurs, rubs or gallops. Lungs--clear bilaterally, no respiratory distress, no accessory muscle use. Abdomen--normal bowel sounds and soft. Extremities--no cyanosis or clubbing. mild edema. Dermatologic--normal skin turgor, normal color, no abnormal lymph nodes, no rash. Neurologic--cranial nerves II through XII grossly intact. Rheumatologic--normal range of motion. Psychiatric--normal affect. Results & Data Results & Data Vital Signs (Past 12 Hours) Vital Signs Temp Pulse Pulse Resp BP BP Pulse Ox 02/28/24 12:11 97.5 F L 74 18 123/71 96 02/28/24 11:25 02/28/24 07:47 97.9 F 78 18 102/56 L 96 02/28/24 07:18 87 02/28/24 03:36 98.1 F 94 H 16 137/74 02/28/24 01:36 99 H O2 Del Method O2 Flow Rate 02/28/24 12:11 Nasal Cannula 2 02/28/24 11:25 Nasal Cannula 2 02/28/24 07:47 Nasal Cannula 2 02/28/24 07:18 02/28/24 03:36 Nasal Cannula 02/28/24 01:36 PG Care Time/CCT Total # of Minutes Spent Total Time Spent with Patient: Total time spent is greater than 50% in coordination of care (as documented) at patient's floor/unit and/or counseling patient: Coding Level of Care Code 89011 SUB INP/OBS CARE 2/35MIN Diagnoses Fever R50.9 Weakness R53.1 Hypoxia R09.02 Hematoma of chest wall S20.219A Abdominal pain R10.9 Subtherapeutic international normalized ratio (INR) R79.1 History of pulmonary embolism Z86.711 Hypomagnesemia E83.42 Time Spent (min) 35
--- NOTE | 2024-02-28 17:08 | CT Scan Report ---
CT abd pelvis wo con CLINICAL HISTORY: abd pain TECHNIQUE: Helical axial images of the abdomen and pelvis were obtained. Automated dose lowering tech niques and/or adjustment according to patient size were utilized for this exam. This exam was perfor med without intravenous contrast. CT DOSE: 1461.32 mGy.cm COMPARISON: Comparison is made to CT abdomen pelvis 02/24/2024 FINDINGS: Lower chest: Bibasilar atelectasis versus scarring is seen. Liver: Unremarkable. No focal lesions are seen. Gallbladder and biliary tree: No calcified gallstones. Normal caliber wall. No intra- or extrahepatic biliary ductal dilation. Pancreas: Unremarkable, no focal lesions. Spleen: Unremarkable. Adrenals: Unremarkable. Kidneys and ureters: Perinephric stranding is noted bilaterally. Previously noted indeterminate right renal lesions are again seen. Bladder: Unremarkable. Reproductive organs: Unremarkable. Bowel: Diverticulosis is seen without evidence of diverticulitis. The appendix is normal. Lymph nodes Retroperitoneal: Unremarkable. Pelvic: Unremarkable. Mesenteric: Unremarkable. Peritoneum: Normal. Vessels: Atherosclerotic calcifications are seen. Abdominal wall: Injection granulomas are seen. Umbilical hernia is noted. Bones: Degenerative changes in the visualized spine. Posterior fixation hardware spans L4-S1. IMPRESSION: 1. No acute abnormality to explain abdominal pain. 2. Redemonstration of indeterminate right renal lesions. Nonemergent ultrasound is again recommended . 3. Diverticulosis without diverticulitis. ACT 112: Negative or not required by law. Electronically signed by: Robert Gerber M.D. 02/28/2024 5:06 PM
[2024-02-29 07:08] LABS: Hematocrit (blood only) 30.3 % (42.0-52.0); Mean Corpuscular Hemoglobin 31.7 pg (25.0-34.0); Mean Corpuscular Volume 96.2 fL (80.0-100.0); Mean Platelet Volume 9.4 fL (9.4-12.4); Platelet Count 181 K/uL (130-400); RDW Coefficient of Variation 14.8 % (11.5-14.5); RDW Standard Deviation 52.6 fL (36.4-46.3); Red Blood Count 3.15 M/uL (4.70-6.10); White Blood Count 7.03 K/ul (4.8-10.8)
[2024-02-29 08:50] LABS: Calcium 8.2 mg/dl (8.6-10.3); Potassium 3.4 mmol/L (3.5-5.1)
[2024-02-29 08:56] LABS: BUN Creatinine Ratio 12.9 (10-20); Est GFR (African American) 63.7 ml/min; Est GFR (Non-African American) 54.9 ml/min
[2024-02-29] MEDS: HEPARIN 100 UNIT/ML 5ML FLUSH FLUSH PRN (09:09)
[2024-02-29 12:05] LABS: Prothrombin Time 53.7 Seconds (9.0-12.0)
[2024-02-29 12:17] LABS: INR 5.8 (0.9-1.1)
[2024-02-29] MEDS: ALBUMIN 25% 25 GM/100 ML VIAL IV SCH (12:43)
--- NOTE | 2024-02-29 13:00 | Hospitalist Progress Note ---
Date of Service February 29, 2024 Assessment & Plan (1) Fever: Plan: Patient spiked a low-grade temperature on 02/24, blood pressure very soft in the 100s systolic Blood cultures were obtained and he was empirically started on IV Zosyn He also received a bolus of IV fluids. Blood cultures negative, zosyn has been discontinued No fevers in 72 hrs (2) Weakness: Plan: Presented to the ED with multiple complaints including generalized weakness with ongoing clinical decline, poor oral intake, nausea, and generalized abdominal discomfort -Likely due to physivcal deconditioning Patient has had multiple admissions over the past 3 months including multiple inpatient rehab stays and was recently discharged home with health services on 02/06/2024 Fall/aspiration precautions PT/OT consults Bilateral SCDs for DVT prophylaxis for now Heart healthy diet with 2 g sodium and 2 L fluid restriction (3) Hypoxia: Plan: Patient was noted to be transiently hypoxic into the high 80s on room air while in the ED Chest x-ray shows cardiomegaly with pulmonary vascular congestion without overt volume overload and is without signs of pneumonia -Exam shows mild leg edema -BNP is within normal limits, 65, last 2D echo in January 2024 showed preserved ejection fraction 60-65% Will continue IV lasix 40 mg As needed O2 to keep SpO2 at or above 92% (4) Hematoma of chest wall: Plan: Patient continues to have his persistent large left chest wall hematoma Does not appear to have increased in size but has not improved since last admission and continues to cause discomfort Will continue patient on his fentanyl patch changed every 72 hours for now No surgical intervention needed for now (5) Abdominal pain: Plan: Patient has been experiencing mild, generalized abdominal discomfort, although mostly around the right side Patient is a difficult time describing the pain, does not appear to stay in [address] of the abdomen pelvis without contrast was negative for acute findings suggest this pain Bilirubin elevated at 1.5 today but other LFTs are within normal limits, negative Farmer sign on exam PRN tylenol (6) Subtherapeutic international normalized ratio (INR): Plan: Resolved INR 5.2 today Hold Warfarin (7) History of pulmonary embolism: Plan: Patient was previously on warfarin then switched to therapeutic Lovenox when chronic PEs were found during previous admission few months ago Subsequently experienced large left chest wall hematoma while on therapeutic Lovenox Since being discharged home on 02/06/2024 and following with outpatient anticoagulation clinic patient was transition back to warfarin Patient is without recurrent pleuritic chest pain, has been hemodynamically stable, without tachycardia, without significant respiratory distress Hold CT of the chest for evaluation of new PEs at this time, will plan to continue warfarin based on daily INR once general surgery evaluates the patient determine need for hematoma evacuation during this admission (8) Hypomagnesemia: Plan: replaced (9) Physical deconditioning: Plan: patient says he has been declining physically over the past several weeks, no longer as active as he used to be He participated in PT here However PT eval determined home with home health as recommedndation (10) Fluid overload: Plan: patient appears fluid overloaded without a diagnosis of CHF BNP wnl, ECHO wnl Continue diuresis with Lasix and occasional albumin given low oncotic pressure Plan continue to monitor, hopefully d/c tomorrow with home health Admission and Anticipated Discharge Date Admission Date: February 24, 2024 Subjective patient seen and examined, sitting up in the chair, feels weak, participating in PT Review of Systems Review of Systems: All systems reviewed are negative, apart from the ones contained in the history. Physical Exam Physical Exam: The patient is awake, alert and oriented 3, well developed and well nourished, normocephalic and atraumatic, lying in bed and in no acute distress. HEENT--PERRL, EOMI, mucous membranes and oropharynx mildly dry Neck--supple. No JVD. No bruits. Thyroid normal, trachea midline, no adenopathy. Heart--normal S1 and S2. No murmurs, rubs or gallops. Lungs--clear bilaterally, no respiratory distress, no accessory muscle use. Abdomen--normal bowel sounds and soft. Extremities--no cyanosis or clubbing. leg edema. Dermatologic--normal skin turgor, normal color, no abnormal lymph nodes, no rash. Neurologic--cranial nerves II through XII grossly intact. Rheumatologic--normal range of motion. Psychiatric--normal affect. Results & Data Results & Data Vital Signs (Past 12 Hours) Vital Signs Temp Pulse Pulse Resp BP Pulse Ox O2 Del Method 02/29/24 11:19 98.8 F 75 16 132/61 94 Room Air 02/29/24 08:28 77 113/65 02/29/24 07:52 98.8 F 76 16 89/48 L 96 Nasal Cannula 02/29/24 07:50 Nasal Cannula 02/29/24 07:00 72 02/29/24 03:45 99.3 F 83 17 117/54 L 93 Nasal Cannula O2 Flow Rate 02/29/24 11:19 02/29/24 08:28 02/29/24 07:52 2 02/29/24 07:50 2 02/29/24 07:00 02/29/24 03:45 2 PG Care Time/CCT Total # of Minutes Spent Total Time Spent with Patient: Total time spent is greater than 50% in coordination of care (as documented) at patient's floor/unit and/or counseling patient: Coding Level of Care Code 64254 SUB INP/OBS CARE 2/35MIN Diagnoses Fever R50.9 Weakness R53.1 Hypoxia R09.02 Hematoma of chest wall S20.219A Abdominal pain R10.9 Subtherapeutic international normalized ratio (INR) R79.1 History of pulmonary embolism Z86.711 Hypomagnesemia E83.42 Physical deconditioning R53.81 Fluid overload E87.70 Time Spent (min) 35
[2024-03-01 07:50] LABS: Albumin Globulin Ratio 1.9 (0.9-2); Albumin Level 3.7 gm/dl (3.4-5.0); Bilirubin,Total 1.3 mg/dl (0.2-1.0); Calcium 8.8 mg/dl (8.6-10.3); Globulin 1.9 gm/dl (2.5-4.0); Potassium 3.2 mmol/L (3.5-5.1); Total Protein 5.6 gm/dl (6.0-8.3)
[2024-03-01 07:57] VITALS: RESP 18; TEMP 98.8
[2024-03-01 08:00] LABS: Prothrombin Time 57.4 Seconds (9.0-12.0)
[2024-03-01 08:29] LABS: INR 6.2 (0.9-1.1)
[2024-03-01 08:41] LABS: BUN Creatinine Ratio 11.7 (10-20); Creatinine Clr Calc Pharmacy 56.2 ml/min; Est GFR (African American) 61.3 ml/min; Est GFR (Non-African American) 52.9 ml/min
[2024-03-01] MEDS: POTASSIUM CHLORIDE CRTAB 20 MEQ TABCR PO STA (08:44)
--- NOTE | 2024-03-01 11:44 | Discharge Summary ---
Date of Service March 01, 2024 Admission HPI Per Admitting Provider Tio is a 78-year-old male with a past medical history significant for pulmonary embolism (failed warfarin therapy, recently on Lovenox), large left chest wall hematoma and acute blood loss anemia due to therapeutic Lovenox use, stage III melanoma started on pembrolizumab 01/12/2023, atrial fibrillation, stage III CKD, checkpoint inhibitor encephalitis who presented to the [facility] ED on 02/24/24 due to diffuse abdominal pain, nausea, and poor oral intake. Initially noted to be stable on arrival but subsequently came hypoxic to 88% on room air. Labs were significant for a stable hemoglobin, INR of 1.5, ionized calcium 1.07, mag of 1.3, total bili of 1.5, procalcitonin and TSH within normal limits, and full respiratory [employer] negative. CT of the head and brain without contrast was negative for acute findings. Chest x-ray was read as cardiomegaly with pulmonary vascular congestion and ill-defined opacity of the left hemithorax which was redemonstrated and likely secondary to his persistent left chest wall hematoma. CT abdomen pelvis without contrast noted prostamegaly with evidence of chronic outlet obstruction, diverticulosis, indeterminate right renal lesions measuring up to 1.5 cm, incompletely characterized due to lack of contrast possibly representing complex cyst. 6- month follow-up renal ultrasound is recommended. Otherwise CT was unremarkable. We are asked to evaluate the patient for admission due to generalized weakness and hypoxia. Patient was lying in bed in no acute distress at time of exam with a family friend sitting bedside, history is mainly obtained from the patient. He states that since being discharged home on 02/06/2024 he has had a persistent clinical decline. States that over the past week he has had very poor oral intake due to nausea and generalized abdominal discomfort. Patient states that he has not vomited but has been close to vomiting with his nausea. When asked to locate if there is abdominal pain points to the central abdomen but says that it moves around. He is unable to give specific details regarding discomfort. Denies fever, chills, chest pain, cough, pleuritic chest pain, dysuria/hematuria, diarrhea, or recent trauma. When asked, he states that he had a normal bowel movement on 02/23/2024. He has been experiencing some dyspnea on exertion while ambulating in his home. He confirms that he was discharged on subcu Lovenox but has been following up with anticoagulation clinic who decided to transition him back to warfarin. States that his last dose of subcu Lovenox was 02/22/2024 and confirms he had no home medications prior to arrival today. States that his large left chest wall hematoma has not increased in size but has remained the same and is still causing discomfort. Patient confirms he is a DNR/DNI and would want medical decisions for him if he cannot make them himself. Admission Exam (Per Admitting) Constitutional The patient is awake, alert and oriented 3, well developed and well nourished, normocephalic and atraumatic, lying in bed and in no acute distress. HEENT--PERRL, EOMI, mucous membranes and oropharynx mildly dry Neck--supple. No JVD. No bruits. Thyroid normal, trachea midline, no adenopathy. Heart--normal S1 and S2. No murmurs, rubs or gallops. Lungs--clear bilaterally, no respiratory distress, no accessory muscle use. Abdomen--normal bowel sounds and soft. Extremities--no cyanosis or clubbing. bilateral lleg edema. Dermatologic--normal skin turgor, normal color, no abnormal lymph nodes, no rash. Neurologic--cranial nerves II through XII grossly intact. Rheumatologic--normal range of motion. Psychiatric--normal affect. Discharge Data Consultations 02/24/24 09:59 ED Decision to Admit Stat 02/24/24 10:59 Consult General Surgery Routine Hospital Course (1) Fever: Patient spiked a low-grade temperature on 02/24, blood pressure very soft in the 100s systolic Blood cultures were obtained and he was empirically started on IV Zosyn He also received a bolus of IV fluids. Blood cultures negative, zosyn has been discontinued No fevers in 72 hrs (2) Weakness: Presented to the ED with multiple complaints including generalized weakness with ongoing clinical decline, poor oral intake, nausea, and generalized abdominal discomfort -Likely due to physivcal deconditioning Patient has had multiple admissions over the past 3 months including multiple inpatient rehab stays and was recently discharged home with health services on 02/06/2024 Fall/aspiration precautions PT/OT consults Bilateral SCDs for DVT prophylaxis for now Heart healthy diet with 2 g sodium and 2 L fluid restriction (3) Hypoxia: Patient was noted to be transiently hypoxic into the high 80s on room air while in the ED Chest x-ray shows cardiomegaly with pulmonary vascular congestion without overt volume overload and is without signs of pneumonia -Exam shows mild leg edema -BNP is within normal limits, 65, last 2D echo in January 2024 showed preserved ejection fraction 60-65% Will continue IV lasix 40 mg As needed O2 to keep SpO2 at or above 92% (4) Hematoma of chest wall: Patient continues to have his persistent large left chest wall hematoma Does not appear to have increased in size but has not improved since last admission and continues to cause discomfort Will continue patient on his fentanyl patch changed every 72 hours for now No surgical intervention needed for now (5) Abdominal pain: Patient has been experiencing mild, generalized abdominal discomfort, although mostly around the right side Patient is a difficult time describing the pain, does not appear to stay in [address] of the abdomen pelvis without contrast was negative for acute findings suggest this pain Bilirubin elevated at 1.5 today but other LFTs are within normal limits, negative Farmer sign on exam PRN tylenol (6) Subtherapeutic international normalized ratio (INR): Resolved INR 6.2 today Hold Warfarin, resume on 03/04 after outpatient INR (7) History of pulmonary embolism: Patient was previously on warfarin then switched to therapeutic Lovenox when chronic PEs were found during previous admission few months ago Subsequently experienced large left chest wall hematoma while on therapeutic Lovenox Since being discharged home on 02/06/2024 and following with outpatient anticoagulation clinic patient was transition back to warfarin Patient is without recurrent pleuritic chest pain, has been hemodynamically stable, without tachycardia, without significant respiratory distress Hold CT of the chest for evaluation of new PEs at this time, will plan to continue warfarin based on daily INR once general surgery evaluates the patient determine need for hematoma evacuation during this admission (8) Hypomagnesemia: replaced (9) Physical deconditioning: patient says he has been declining physically over the past several weeks, no longer as active as he used to be He participated in PT here However PT eval determined home with home health as recommedndation (10) Fluid overload: patient appears fluid overloaded without a diagnosis of CHF BNP wnl, ECHO wnl Continue diuresis with Lasix and occasional albumin given low oncotic pressure Plan continue to monitor, hopefully d/c tomorrow with home health Coding Level of Care Code 60753 INP/OBS DISCH >30 MIN Diagnoses Fever R50.9 Weakness R53.1 Hypoxia R09.02 Hematoma of chest wall S20.219A Abdominal pain R10.9 Subtherapeutic international normalized ratio (INR) R79.1 History of pulmonary embolism Z86.711 Hypomagnesemia E83.42 Physical deconditioning R53.81 Fluid overload E87.70 Time Spent (min) 35
[2024-03-01 12:04] VITALS: BP 124/72
[2024-03-01 15:07] VITALS: PULSE 77; O2SAT 98
== END 2024-03-01 16:50 | disposition home health service (06) | DRG 392 ==
LOC: ED 06:58 → 2N 10:33 → SUATTDRO 10:33 → 2N 14:02

== ENCOUNTER 2024-04-01 11:25 | Inpatient (IN) ==
[2024-04-01] MEDS: NOREPINEPHRINE/D5W 4 MG/250 ML PLCT IV SCH (11:47)
[2024-04-01] MEDS: NOREPINEPHRINE/D5W 4 MG/250 ML IV ONE (11:47)
[2024-04-01] MEDS: SODIUM CHLORIDE 0.9% 1,000 ML IV SCH (11:55)
[2024-04-01 12:01] LABS: iSTAT Creatinine 2.5 mg/dl (0.6-1.3); iSTAT Ionized Calcium 1.16 mmol/l (1.12-1.32); iSTAT Potassium 3.3 mmol/L (3.3-5.0)
[2024-04-01] MEDS ORDERED: VANCOMYCIN CONSULT ACTIVE PRN ×2 (12:02→15:42)
--- NOTE | 2024-04-01 12:06 | Emergency Department Note ---
Impression & Plan Septic shock, Hypomagnesemia, Acute kidney injury superimposed on chronic kidney disease, AMS (altered mental status), Leukocytosis, Elevated lactic acid level, Acute hypokalemia ED Provider Note HISTORY OF PRESENT ILLNESS: Patient is a 78-year-old male presenting with lethargy and confusion. Patient was reportedly in the car and route to [facility] for a follow-up appointment from a recent ER discharge. He became minimally responsive for family and they pulled to the side of the road and called 911. EMS got the patient out of his car and stated that he seemed to be very lethargic. A fingerstick of 130s for EMS. They state that he was able to open his eyes and say his name for them. Patient is on 3 L nasal cannula at baseline. On arrival to the ER, the patient is not conversant and minimally responsive. He seems to be having active rigors. He does intermittently open his eyes. ROS: as above PHYSICAL EXAM: Constitutional: Patient appears in mild distress. Actively shivering with rigors. HENT: Head: Normocephalic and atraumatic. Eyes: EOMI, PERRL Mouth/Throat: Mucous membranes moist. Neck: Trachea midline. Neck supple. Cardiovascular: Tachycardic with regular rhythm. No murmurs, rubs or gallops. Intact distal pulses. Pulmonary/Chest: No respiratory distress. Breath sounds clear and equal bilaterally. No wheezes or rales. Abdominal: Abdomen soft, no tenderness, rebound or guarding. Musculoskeletal: No edema, tenderness or deformity noted. Skin: Warm and dry. Notable open wound to the left anterior disla with surrounding erythema. No active drainage from the wound. No palpable crepitus. Neurological: Patient is minimally responsive but does open his eyes and wince to jaw thrust. CN II-XII grossly intact, moving all extremities spontaneously. MDM: - Vitals signs showed tachycardia, hypotension and fever. Patient's port was accessed by nursing staff and 1 L normal saline was pressurized through to help with blood pressure. A second 1 L normal saline was also pressurized through his port for volume resuscitation. Patient is minimally responsive and materials were gathered to intubate him. However, on further documentation review the patient was DNR/DNI on previous admissions. He did seem to start responding to painful stimulus and groaning with improvement in his blood pressure. He was started on IV Levophed for further blood pressure management with a MAP goal of greater than 65. - History obtained via EMS, given patient's confusion. History as above. - Chronic conditions affecting care: PE (on lovenox); CKD; HTN; HLD - Differential diagnoses include, but are not limited to: CVA; intracranial hemorrhage; ACS; pneumonia; UTI; cellulitis - Order placed for continuous cardiac monitoring. At this time, monitor showed rate of 113 bpm with normal sinus rhythm, per my interpretation. - External medical records reviewed. Discharge summary dated 03/01/2024 was reviewed. Patient was admitted that time for fever and generalized weakness. - EKG interpreted by myself showed normal sinus rhythm. Rate tachycardic at 117 bpm. QT prolonged at 406. No acute ischemic changes. - Laboratory workup interpreted by myself showed leukocytosis (WBC 12.39); elevated INR (1.7); hypokalemia (K 3.4); elevated BUN (28); ELISABETH on CKD (Cr 2.21); elevated lactate (3.6); hypomagnesemia (Mg 1.6); normal troponin - UA negative for infection - Viral respiratory panel negative - CT head wo contrast negative for acute intracranial pathology - VBG shows hypercabia (pCO2 54 mmHg) - CXR negative for pneumonia, per my interpretation - Patient's 30 cc/kg fluid resuscitation for sepsis based on ideal body weight is 2427.00 mL. Patient was initially given 2L NS via pressure bag and additional 500 cc of fluid was ordered. - Given 1g IV tylenol for fever. - Continued on IV levophed for blood pressure support. - Given IV vancomycin and cefepime for antibiotic coverage. - Discussed case with ICU attending, Dr. Prince, at 13:42. - Discussion was had with patient case manager about patient's case and need for admission - Hospitalist, Dr. Laurent, consulted for admission - Patient admitted to [facility] in ICU for further evaluation and management. I have personally spent 41 minutes of critical care time in the direct management of this patient. This includes bedside care, interpretation of diagnostic studies, and testing, discussion with consultants, patient, and family members, and other required patient management activities. This 41 minutes is in excess of all separately billable procedures. ASSESSMENT AND PLAN: Diagnosis: septic shock; altered mental status; ELISABETH on CKD; leukocytosis; hypomagnesemia; hypokalemia; elevated lactic acid level Plan: admit Past Med/Surg History Problem List (Updated 04/01/24 @ 14:54 by Kimo Laurent MD) Unwitnessed fall Sepsis Goals of care, counseling/discussion Nausea (Acute) Weakness (Acute) Fluid overload Physical deconditioning Fever Abdominal pain (Acute) Hypoxia (Acute) Melanoma Subtherapeutic international normalized ratio (INR) (Acute) Abdominal pain Hypoxia Elevated LFTs Acute blood loss anemia Dysuria Hematoma of chest wall (Acute) Chest pain (Acute) Metabolic encephalopathy Demand ischemia Altered mental status Acute kidney injury superimposed on CKD Complicated UTI (urinary tract infection) Severe sepsis Hypovolemic shock Vomiting (Acute) Hypomagnesemia (Acute) Bilateral cellulitis of lower leg (Acute) Bilateral leg edema (Acute) Prostate nodule ELISABETH (acute kidney injury) Hypomagnesemia Bilateral cellulitis of lower leg (Acute) Leg swelling (Acute) ALVAREZ (dyspnea on exertion) (Acute) Cellulitis Incontinence Port-A-Cath in place (01/24/23) Infusaport Insertion to right internal jugular with Fluoroscopy(Right) - Vamsi Tolbert, Allergic reaction (Acute) Pulmonary embolism Trigeminal neuralgia (Acute) Trigeminal neuralgia (Acute) Vitamin D deficiency (Acute) Hypertension (Acute) Chronic kidney disease, stage 3 (Acute) Vitamin D deficiency (Chronic) Prostate cancer screening Thoracic ascending aortic aneurysm Gastritis Insomnia Encounter for pre-operative examination Primary osteoarthritis, left shoulder Low back pain with sciatica (Acute) History of pulmonary embolism 2015, unknown etiology senior care (current) use of anticoagulants (Chronic) History of malignant melanoma Left side of neck Aortic aneurysm CT 12/2022- "Aneurysmal dilatation of the ascending thoracic aorta measuring up to 4.6 cm in diameter. This is similar to the prior studies." Follows with Dr. Marshall Hypercholesterolemia (Acute) Stone in kidney Hx Hypertension (Chronic) Chronic kidney disease, stage III (moderate) (Chronic) Trigeminal neuralgia (Acute) s/p radiated nerve, No issues x several years Medical History Obesity Encephalitis Pulmonary embolism on long-term anticoagulation therapy Atrial fibrillation and flutter Pulmonary embolism Constipated COVID-19 Osteoarthritis Surgical History History of left shoulder replacement History of right shoulder replacement History of total left knee replacement (TKR) History of total right knee replacement (TKR) with revision History of colonoscopy History of inguinal hernia repair History of cancer surgery Left side of neck resection + lymph node removal History of tooth extraction History of tonsillectomy and adenoidectomy History of sinus surgery History of cystoscopy History of cataract surgery bilateral History of back surgery L4-L5 with screws Family History Family/Other Diabetes Heart disease Nephrolithiasis Other No family history of adverse response to anesthesia Social History Smoking Status: Never smoker Second Hand Exposure: Yes; Do You Dip or Chew Tobacco: No; Hx Alcohol Use: No Hx Substance Use: No Preferred Language: Gabonese Communication Ability: Effective Developer Analyst Required: No Beliefs That Will Affect Care: None Current Living Situation: Spouse current occupational status: retired Feels Safe at Home: Yes Seatbelt Use: always Assistive Devices: Cane, Walker and Wheelchair Allergies Allergies Allergy/AdvReac Type Severity Reaction Status Date / Time gabapentin Allergy Intermediate Rash Verified 02/24/24 09:51 tramadol Allergy Intermediate Rash and Verified 02/24/24 09:51 itchiness hydrocodone Allergy Mild itchy Verified 02/24/24 09:51 oxycodone Allergy Mild itchy Verified 02/24/24 09:51 carbamazepine Allergy Unknown Unknown Verified 02/24/24 09:51 ciprofloxacin Allergy Unknown Unknown Verified 02/24/24 09:51 Home Meds Home Medications Medication Instructions Recorded Confirmed acetaminophen 650 mg 650 mg PO Q4H PRN Pain 01/27/24 04/01/24 tablet,extended release allopurinol 100 mg tablet 100 mg PO QAM 01/27/24 04/01/24 polyethylene glycol 3350 17 gram 17 g PO QAM 02/10/24 04/01/24 oral powder packet (Miralax) furosemide 40 mg tablet 40 mg PO DAILY PRN weight 02/24/24 04/01/24 gain/swelling pregabalin 50 mg capsule 50 mg PO DAILY 03/11/24 04/01/24 potassium citrate 10 mEq (1,080 10 meq PO BID 03/24/24 04/01/24 mg) tablet,extended release warfarin 5 mg tablet 5 mg PO DAILY 03/26/24 04/01/24 Previous Rx's Medication Instructions Recorded ferrous sulfate 325 mg (65 mg 325 mg PO BIDM #60 tabs 02/06/24 iron) tablet,delayed release metoprolol succinate 50 mg 50 mg PO QAM #30 tabs 02/06/24 tablet,extended release 24 hr sennosides 8.6 mg-docusate sodium 1 tab PO BID #60 tabs 02/06/24 50 mg tablet (Senokot-S) metoclopramide HCl 5 mg tablet 5 mg PO BID PRN nausea and 03/24/24 (Reglan) vomiting #6 tabs Results & Data (ED) Vital Signs Vital Signs - 24 hr 04/01/24 11:43 04/01/24 11:45 04/01/24 11:48 Temperature Temperature Source Pulse Rate 118 H 114 H 114 H Pulse Rate from SpO2 Sensor Respiratory Rate 16 22 24 Blood Pressure 115/65 66/45 L 92/59 L Blood Pressure Mean 81 52 70 Blood Pressure Position Sitting Pulse Oximetry 96 92 96 Oxygen Delivery Method Nasal Cannula Nasal Cannula Nasal Cannula Oxygen Flow Rate 4 4 4 Sepsis Recent Fever Within 48 Hours No Sepsis New/Unexplained Change in Mental Status N/A Sepsis Action Taken by Nursing No Action Required 04/01/24 11:54 04/01/24 11:56 04/01/24 12:00 Temperature 39.6 C H Temperature Source Rectal Pulse Rate 112 H 118 H Pulse Rate from SpO2 Sensor Respiratory Rate 16 Blood Pressure 124/95 Blood Pressure Mean 99 Blood Pressure Position Pulse Oximetry 96 Oxygen Delivery Method Nasal Cannula Oxygen Flow Rate 4 Sepsis Recent Fever Within 48 Hours Sepsis New/Unexplained Change in Mental Status Sepsis Action Taken by Nursing 04/01/24 12:03 04/01/24 12:10 04/01/24 12:15 Temperature Temperature Source Pulse Rate 123 H 117 H 104 H Pulse Rate from SpO2 Sensor Respiratory Rate 20 18 18 Blood Pressure 70/55 L 117/73 83/48 L Blood Pressure Mean 60 81 68 Blood Pressure Position Pulse Oximetry 97 96 98 Oxygen Delivery Method Nasal Cannula Nasal Cannula Nasal Cannula Oxygen Flow Rate 4 4 4 Sepsis Recent Fever Within 48 Hours Sepsis New/Unexplained Change in Mental Status Sepsis Action Taken by Nursing 04/01/24 12:21 04/01/24 12:25 04/01/24 12:33 Temperature Temperature Source Pulse Rate 108 H 108 H 102 H Pulse Rate from SpO2 Sensor Respiratory Rate 24 20 20 Blood Pressure 95/48 L 94/73 L 106/89 Blood Pressure Mean 63 86 94 Blood Pressure Position Pulse Oximetry 98 97 94 Oxygen Delivery Method Nasal Cannula Nasal Cannula Nasal Cannula Oxygen Flow Rate 4 4 4 Sepsis Recent Fever Within 48 Hours Sepsis New/Unexplained Change in Mental Status Sepsis Action Taken by Nursing 04/01/24 12:36 04/01/24 12:40 04/01/24 12:46 Temperature Temperature Source Pulse Rate 108 H 108 H 116 H Pulse Rate from SpO2 Sensor Respiratory Rate 18 18 16 Blood Pressure 108/49 L 85/46 L 121/52 L Blood Pressure Mean 68 68 76 Blood Pressure Position Pulse Oximetry 95 96 98 Oxygen Delivery Method Nasal Cannula Nasal Cannula Nasal Cannula Oxygen Flow Rate 4 4 4 Sepsis Recent Fever Within 48 Hours Sepsis New/Unexplained Change in Mental Status Sepsis Action Taken by Nursing 04/01/24 12:50 04/01/24 12:55 04/01/24 13:00 Temperature Temperature Source Pulse Rate 113 H 114 H 113 H Pulse Rate from SpO2 Sensor Respiratory Rate 18 20 17 Blood Pressure 96/67 L 91/40 L 83/45 L Blood Pressure Mean 74 49 57 Blood Pressure Position Pulse Oximetry 98 97 98 Oxygen Delivery Method Nasal Cannula Nasal Cannula Nasal Cannula Oxygen Flow Rate 4 4 4 Sepsis Recent Fever Within 48 Hours Sepsis New/Unexplained Change in Mental Status Sepsis Action Taken by Nursing 04/01/24 13:09 04/01/24 13:11 04/01/24 13:16 Temperature Temperature Source Pulse Rate 118 H 105 H Pulse Rate from SpO2 Sensor Respiratory Rate 19 18 Blood Pressure 77/45 L 91/41 L 94/33 L Blood Pressure Mean 55 50 53 Blood Pressure Position Pulse Oximetry 95 97 Oxygen Delivery Method Nasal Cannula Nasal Cannula Oxygen Flow Rate 4 4 Sepsis Recent Fever Within 48 Hours Sepsis New/Unexplained Change in Mental Status Sepsis Action Taken by Nursing 04/01/24 13:26 04/01/24 13:30 04/01/24 13:36 Temperature Temperature Source Pulse Rate 109 H Pulse Rate from SpO2 Sensor Respiratory Rate 18 Blood Pressure 99/70 L 76/51 L 70/45 L Blood Pressure Mean 75 56 51 Blood Pressure Position Pulse Oximetry 96 Oxygen Delivery Method Oxygen Flow Rate Sepsis Recent Fever Within 48 Hours Sepsis New/Unexplained Change in Mental Status Sepsis Action Taken by Nursing 04/01/24 13:36 04/01/24 13:42 04/01/24 13:44 Temperature Temperature Source Pulse Rate 108 H Pulse Rate from SpO2 Sensor 108 H Respiratory Rate 16 Blood Pressure 70/45 L 55/40 L 98/57 L Blood Pressure Mean 51 44 68 Blood Pressure Position Pulse Oximetry 98 Oxygen Delivery Method Oxygen Flow Rate Sepsis Recent Fever Within 48 Hours Sepsis New/Unexplained Change in Mental Status Sepsis Action Taken by Nursing 04/01/24 13:45 04/01/24 13:50 04/01/24 13:50 Temperature Temperature Source Pulse Rate 109 H 112 H Pulse Rate from SpO2 Sensor 109 H Respiratory Rate 16 18 Blood Pressure 119/58 L 131/56 L 131/56 L Blood Pressure Mean 78 85 85 Blood Pressure Position Pulse Oximetry 98 95 Oxygen Delivery Method Nasal Cannula Oxygen Flow Rate 4 Sepsis Recent Fever Within 48 Hours Sepsis New/Unexplained Change in Mental Status Sepsis Action Taken by Nursing 04/01/24 13:55 04/01/24 14:00 04/01/24 14:05 Temperature Temperature Source Pulse Rate 111 H 112 H 113 H Pulse Rate from SpO2 Sensor Respiratory Rate 18 16 18 Blood Pressure 89/59 L 111/56 L 78/58 L Blood Pressure Mean 62 65 61 Blood Pressure Position Pulse Oximetry 97 97 98 Oxygen Delivery Method Nasal Cannula Nasal Cannula Nasal Cannula Oxygen Flow Rate 4 4 4 Sepsis Recent Fever Within 48 Hours Sepsis New/Unexplained Change in Mental Status Sepsis Action Taken by Nursing 04/01/24 14:27 04/01/24 14:31 04/01/24 14:40 Temperature Temperature Source Pulse Rate 115 H 113 H 114 H Pulse Rate from SpO2 Sensor Respiratory Rate 20 18 16 Blood Pressure 113/57 L 118/51 L 133/60 Blood Pressure Mean 81 96 85 Blood Pressure Position Pulse Oximetry 95 97 96 Oxygen Delivery Method Nasal Cannula Nasal Cannula Nasal Cannula Oxygen Flow Rate 4 4 4 Sepsis Recent Fever Within 48 Hours Sepsis New/Unexplained Change in Mental Status Sepsis Action Taken by Nursing Laboratory Data 04/01/24 11:37 04/01/24 11:37 Lab Results 04/01/24 04/01/24 04/01/24 Range/Units 11:37 11:48 12:07 WBC 12.39 H (4.8-10.8) K/ul RBC 4.32 L (4.70-6.10) M/uL Hgb 13.6 L (14.0-18.0) g/dl POC Hgb 15.0 (14.0-18.0) g/dl Hct 42.4 (42.0-52.0) % POC Hct 44 (42-52) % MCV 98.1 (80.0-100.0) fL MCH 31.5 (25.0-34.0) pg MCHC 32.1 (32.0-36.0) g/dL RDW Std Deviation 59.5 H (36.4-46.3) fL RDW Coeff of Lisbeth 16.3 H (11.5-14.5) % Plt Count 306 (130-400) K/uL MPV 10.3 (9.4-12.4) fL Immature Gran % (Auto) 0.3 % Neut % (Auto) 41.5 % Lymph % (Auto) 40.7 % [place] % (Auto) 14.9 % Eos % (Auto) 2.0 % Baso % (Auto) 0.6 % Neut # (Auto) 5.15 (1.40-6.50) K/uL Lymph # (Auto) 5.04 H (1.20-3.40) K/uL [place] # (Auto) 1.84 H (0.11-0.59) K/uL Eos # (Auto) 0.25 (0.00-0.50) K/uL Baso # (Auto) 0.07 (0.00-0.20) K/uL Immature Gran # (Auto) 0.04 (0.01-0.20) K/uL Polychromasia 1+ Tear Drop Cells 1+ PT 17.7 H (9.0-12.0) Seconds INR 1.7 H (0.9-1.1) VBG pH 7.40 (7.36-7.41) VBG pCO2 54 H (38-50) mmHg VBG pO2 < 20 mmHg VBG HCO3 33 mmol/L VBG O2 Saturation < 60.0 % VBG Base Excess 7.0 mEq/L POC Sodium 138 (135-144) mmol/L Sodium 139 (136-145) mmol/L POC Potassium 3.3 (3.3-5.0) mmol/L Potassium 3.4 L (3.5-5.1) mmol/L POC Chloride 99 L (101-112) mmol/L Chloride 99 (98-107) mmol/L Carbon Dioxide 30 (21-32) mmol/L POC Total CO2 27 (24-31) mmol/L Anion Gap 10 (3-11) POC Anion Gap 16.0 (16-25) mmol/L POC BUN 27 H (7-18) mg/dl BUN 28 H (6-23) mg/dl Creatinine 2.21 H (0.6-1.4) mg/dl POC Creatinine 2.5 H (0.6-1.3) mg/dl Est Cr Clr Drug Dosing 33.8 ml/min eGFR 29.56 BUN/Creatinine Ratio 12.7 (10-20) Glucose 100 H (70-99(Fasting)) mg/dl POC Glucose (other) 103 H (70-99) mg/dl Lactate 3.6 H* (0.4-2.0) mmol/L Calcium 11.0 H (8.6-10.3) mg/dl POC Ioniz Calcium Laura 1.16 (1.12-1.32) mmol/l Magnesium 1.6 L (1.7-2.4) mg/dl Total Bilirubin 1.6 H (0.2-1.0) mg/dl Direct Bilirubin 0.6 H (0-0.2) mg/dl AST 99 H (13-39) U/L ALT 24 (7-52) U/L Alkaline Phosphatase 94 (34-104) U/L Troponin I High Sens 18.8 (0-20) pg/ml Total Protein 5.8 L (6.0-8.3) gm/dl Albumin 3.0 L (3.4-5.0) gm/dl Urine Color Urine Appearance (Clear) Urine pH (4.5-7.5) Ur Specific Whitmore (1.000-1.030) Urine Protein (Negative) Urine Glucose (UA) (Negative) Urine Ketones (Negative) Urine Blood (Negative) Urine Nitrite (Negative) Urine Bilirubin (Negative) Urine Urobilinogen (Negative) Ur Leukocyte Esterase (Negative) Urine WBC (Auto) (0-5) /hpf Urine RBC (Auto) (0-2) /hpf U Hyaline Cast (Auto) (0-2) /lpf U Epithel Cells (Auto) (0-2) /hpf Urine Bacteria (Auto) (None Seen) Adenovirus (PCR) (NotDetected) B. pertussis DNA (PCR) (NotDetected) B.parapertussis DNA PCR (NotDetected) C. pneumoniae DNA (PCR) (NotDetected) Coronavirus OC43 (PCR) (NotDetected) Coronavirus HKU1 (PCR) (NotDetected) Coronavirus 229E (PCR) (NotDetected) SARS-CoV-2 (PCR) (NotDetected) Coronavirus NL63 (PCR) (NotDetected) Human Metapneumovir PCR (NotDetected) Influenza Type A (PCR) (NotDetected) Influenza Type B (PCR) (NotDetected) M. pneumoniae (PCR) (NotDetected) Parainfluenza 1 (PCR) (NotDetected) Parainfluenza 2 (PCR) (NotDetected) Parainfluenza 3 (PCR) (NotDetected) Parainfluenza 4 (PCR) (NotDetected) RSV (PCR) (NotDetected) Entero/Rhino (PCR) (NotDetected) Blood Type A Positive Antibody Screen NEGATIVE 04/01/24 04/01/24 04/01/24 Range/Units 12:53 14:00 14:30 WBC (4.8-10.8) K/ul RBC (4.70-6.10) M/uL Hgb (14.0-18.0) g/dl POC Hgb 12.9 L (14.0-18.0) g/dl Hct (42.0-52.0) % POC Hct 38 L (42-52) % MCV (80.0-100.0) fL MCH (25.0-34.0) pg MCHC (32.0-36.0) g/dL RDW Std Deviation (36.4-46.3) fL RDW Coeff of Lisbeth (11.5-14.5) % Plt Count (130-400) K/uL MPV (9.4-12.4) fL Immature Gran % (Auto) % Neut % (Auto) % Lymph % (Auto) % [place] % (Auto) % Eos % (Auto) % Baso % (Auto) % Neut # (Auto) (1.40-6.50) K/uL Lymph # (Auto) (1.20-3.40) K/uL [place] # (Auto) (0.11-0.59) K/uL Eos # (Auto) (0.00-0.50) K/uL Baso # (Auto) (0.00-0.20) K/uL Immature Gran # (Auto) (0.01-0.20) K/uL Polychromasia Tear Drop Cells PT (9.0-12.0) Seconds INR (0.9-1.1) VBG pH (7.36-7.41) VBG pCO2 (38-50) mmHg VBG pO2 mmHg VBG HCO3 mmol/L VBG O2 Saturation % VBG Base Excess mEq/L POC Sodium 140 (135-144) mmol/L Sodium (136-145) mmol/L POC Potassium 3.0 L (3.3-5.0) mmol/L Potassium (3.5-5.1) mmol/L POC Chloride 99 L (101-112) mmol/L Chloride (98-107) mmol/L Carbon Dioxide (21-32) mmol/L POC Total CO2 26 (24-31) mmol/L Anion Gap (3-11) POC Anion Gap 18.0 (16-25) mmol/L POC BUN 25 H (7-18) mg/dl BUN (6-23) mg/dl Creatinine (0.6-1.4) mg/dl POC Creatinine 2.4 H (0.6-1.3) mg/dl Est Cr Clr Drug Dosing ml/min eGFR BUN/Creatinine Ratio (10-20) Glucose (70-99(Fasting)) mg/dl POC Glucose (other) 141 H (70-99) mg/dl Lactate 2.5 H* (0.4-2.0) mmol/L Calcium (8.6-10.3) mg/dl POC Ioniz Calcium Laura 1.22 (1.12-1.32) mmol/l Magnesium (1.7-2.4) mg/dl Total Bilirubin (0.2-1.0) mg/dl Direct Bilirubin (0-0.2) mg/dl AST (13-39) U/L ALT (7-52) U/L Alkaline Phosphatase (34-104) U/L Troponin I High Sens (0-20) pg/ml Total Protein (6.0-8.3) gm/dl Albumin (3.4-5.0) gm/dl Urine Color Yellow Urine Appearance Clear (Clear) Urine pH 6.5 (4.5-7.5) Ur Specific [place] 1.009 (1.000-1.030) Urine Protein Negative (Negative) Urine Glucose (UA) Negative (Negative) Urine Ketones Negative (Negative) Urine Blood 1+ H (Negative) Urine Nitrite Negative (Negative) Urine Bilirubin Negative (Negative) Urine Urobilinogen Negative (Negative) Ur Leukocyte Esterase Negative (Negative) Urine WBC (Auto) 0-5 (0-5) /hpf Urine RBC (Auto) >20 H (0-2) /hpf U Hyaline Cast (Auto) 6-10 H (0-2) /lpf U Epithel Cells (Auto) 0-2 (0-2) /hpf Urine Bacteria (Auto) None Seen (None Seen) Adenovirus (PCR) (NotDetected) B. pertussis DNA (PCR) (NotDetected) B.parapertussis DNA PCR (NotDetected) C. pneumoniae DNA (PCR) (NotDetected) Coronavirus OC43 (PCR) (NotDetected) Coronavirus HKU1 (PCR) (NotDetected) Coronavirus 229E (PCR) (NotDetected) SARS-CoV-2 (PCR) (NotDetected) Coronavirus NL63 (PCR) (NotDetected) Human Metapneumovir PCR (NotDetected) Influenza Type A (PCR) (NotDetected) Influenza Type B (PCR) (NotDetected) M. pneumoniae (PCR) (NotDetected) Parainfluenza 1 (PCR) (NotDetected) Parainfluenza 2 (PCR) (NotDetected) Parainfluenza 3 (PCR) (NotDetected) Parainfluenza 4 (PCR) (NotDetected) RSV (PCR) (NotDetected) Entero/Rhino (PCR) (NotDetected) Blood Type Antibody Screen 04/01/24 Range/Units Unknown WBC (4.8-10.8) K/ul RBC (4.70-6.10) M/uL Hgb (14.0-18.0) g/dl POC Hgb (14.0-18.0) g/dl Hct (42.0-52.0) % POC Hct (42-52) % MCV (80.0-100.0) fL MCH (25.0-34.0) pg MCHC (32.0-36.0) g/dL RDW Std Deviation (36.4-46.3) fL RDW Coeff of Lisbeth (11.5-14.5) % Plt Count (130-400) K/uL MPV (9.4-12.4) fL Immature Gran % (Auto) % Neut % (Auto) % Lymph % (Auto) % [place] % (Auto) % Eos % (Auto) % Baso % (Auto) % Neut # (Auto) (1.40-6.50) K/uL Lymph # (Auto) (1.20-3.40) K/uL [place] # (Auto) (0.11-0.59) K/uL Eos # (Auto) (0.00-0.50) K/uL Baso # (Auto) (0.00-0.20) K/uL Immature Gran # (Auto) (0.01-0.20) K/uL Polychromasia Tear Drop Cells PT (9.0-12.0) Seconds INR (0.9-1.1) VBG pH (7.36-7.41) VBG pCO2 (38-50) mmHg VBG pO2 mmHg VBG HCO3 mmol/L VBG O2 Saturation % VBG Base Excess mEq/L POC Sodium (135-144) mmol/L Sodium (136-145) mmol/L POC Potassium (3.3-5.0) mmol/L Potassium (3.5-5.1) mmol/L POC Chloride (101-112) mmol/L Chloride (98-107) mmol/L Carbon Dioxide (21-32) mmol/L POC Total CO2 (24-31) mmol/L Anion Gap (3-11) POC Anion Gap (16-25) mmol/L POC BUN (7-18) mg/dl BUN (6-23) mg/dl Creatinine (0.6-1.4) mg/dl POC Creatinine (0.6-1.3) mg/dl Est Cr Clr Drug Dosing ml/min eGFR BUN/Creatinine Ratio (10-20) Glucose (70-99(Fasting)) mg/dl POC Glucose (other) (70-99) mg/dl Lactate (0.4-2.0) mmol/L Calcium (8.6-10.3) mg/dl POC Ioniz Calcium Laura (1.12-1.32) mmol/l Magnesium (1.7-2.4) mg/dl Total Bilirubin (0.2-1.0) mg/dl Direct Bilirubin (0-0.2) mg/dl AST (13-39) U/L ALT (7-52) U/L Alkaline Phosphatase (34-104) U/L Troponin I High Sens (0-20) pg/ml Total Protein (6.0-8.3) gm/dl Albumin (3.4-5.0) gm/dl Urine Color Urine Appearance (Clear) Urine pH (4.5-7.5) Ur Specific [place] (1.000-1.030) Urine Protein (Negative) Urine Glucose (UA) (Negative) Urine Ketones (Negative) Urine Blood (Negative) Urine Nitrite (Negative) Urine Bilirubin (Negative) Urine Urobilinogen (Negative) Ur Leukocyte Esterase (Negative) Urine WBC (Auto) (0-5) /hpf Urine RBC (Auto) (0-2) /hpf U Hyaline Cast (Auto) (0-2) /lpf U Epithel Cells (Auto) (0-2) /hpf Urine Bacteria (Auto) (None Seen) Adenovirus (PCR) Not Detected (NotDetected) B. pertussis DNA (PCR) Not Detected (NotDetected) B.parapertussis DNA PCR Not Detected (NotDetected) C. pneumoniae DNA (PCR) Not Detected (NotDetected) Coronavirus OC43 (PCR) Not Detected (NotDetected) Coronavirus HKU1 (PCR) Not Detected (NotDetected) Coronavirus 229E (PCR) Not Detected (NotDetected) SARS-CoV-2 (PCR) Not Detected (NotDetected) Coronavirus NL63 (PCR) Not Detected (NotDetected) Human Metapneumovir PCR Not Detected (NotDetected) Influenza Type A (PCR) Not Detected (NotDetected) Influenza Type B (PCR) Not Detected (NotDetected) M. pneumoniae (PCR) Not Detected (NotDetected) Parainfluenza 1 (PCR) Not Detected (NotDetected) Parainfluenza 2 (PCR) Not Detected (NotDetected) Parainfluenza 3 (PCR) Not Detected (NotDetected) Parainfluenza 4 (PCR) Not Detected (NotDetected) RSV (PCR) Not Detected (NotDetected) Entero/Rhino (PCR) Not Detected (NotDetected) Blood Type Antibody Screen Administered Medications Norepinephrine Bitartrate (Levophed/D5w) 4 mg in 250 mls @ 62.52 mls/hr IV .Q4H KELSY; Protocol Stop: 05/01/24 12:29 Last Titration: 04/01/24 14:45 Dose: 0.16 mcg/kg/min, 62.5 mls/hr Documented By: Titration: 04/01/24 14:06 Dose: 0.18 mcg/kg/min, 70.3 mls/hr Documented By: Titration: 04/01/24 13:52 Dose: 0.16 mcg/kg/min, 62.5 mls/hr Documented By: Titration: 04/01/24 13:41 Dose: 0.2 mcg/kg/min, 78.2 mls/hr Documented By: Titration: 04/01/24 13:38 Dose: 0.15 mcg/kg/min, 58.6 mls/hr Documented By: Titration: 04/01/24 13:17 Dose: 0.12 mcg/kg/min, 46.9 mls/hr Documented By: Titration: 04/01/24 13:06 Dose: 0.1 mcg/kg/min, 39.1 mls/hr Documented By: Titration: 04/01/24 12:02 Dose: 0.08 mcg/kg/min, 31.3 mls/hr Documented By: Titration: 04/01/24 11:57 Dose: 0.05 mcg/kg/min, 19.5 mls/hr Documented By: Admin: 04/01/24 11:47 Dose: 0.1 mcg/kg/min, 39.1 mls/hr Documented By: MMN Co-signed By: BMK Potassium Chloride (K Raj / Wtr) 10 meq in 100 mls @ 100 mls/hr IV Q1H KELSY Stop: 04/01/24 15:59 Last Admin: 04/01/24 14:41 Dose: 100 mls/hr Documented By: HÉCTOR Magnesium Sulfate/Dextrose (Magnesium Sulfate / D5w) 1 gm in 100 mls @ 50 mls/hr IV Q2H KELSY Stop: 04/01/24 17:59 Last Admin: 04/01/24 14:48 Dose: 50 mls/hr Documented By: Infusion: 04/01/24 14:48 Dose: Infused Documented By: Admin: 04/01/24 14:00 Dose: 50 mls/hr Documented By: HÉCTOR Discontinued Medications Sodium Chloride (Nss) 1,000 mls @ 999 mls/hr IV .Q1H1M KELSY Stop: 04/01/24 13:45 Last Infusion: 04/01/24 14:00 Dose: Infused Documented By: Admin: 04/01/24 12:58 Dose: 999 mls/hr Documented By: Infusion: 04/01/24 12:58 Dose: Infused Documented By: Admin: 04/01/24 11:55 Dose: 999 mls/hr Documented By: HÉCTOR Acetaminophen (Ofirmev) 1,000 mg in 100 mls @ 400 mls/hr IV NOW STA Stop: 04/01/24 12:16 Last Infusion: 04/01/24 12:23 Dose: Infused Documented By: Admin: 04/01/24 12:08 Dose: 400 mls/hr Documented By: HÉCTOR Vancomycin HCl 2,000 mg/ (Sodium Chloride) 540 mls @ 200 mls/hr IV NOW ONE Stop: 04/01/24 14:43 Last Admin: 04/01/24 12:50 Dose: 200 mls/hr Documented By: HÉCTOR Cefepime HCl (Maxipime 2000mg) 2,000 mg in 20 mls @ 5 mls/min IV NOW STA; Protocol Stop: 04/01/24 12:05 Last Admin: 04/01/24 12:08 Dose: 5 mls/min Documented By: HÉCTOR Parenteral Electrolytes (Plasma-Lyte A Ph 7.4) 1,000 mls @ 999 mls/hr IV .Q1H1M ONE Stop: 04/01/24 14:38 Last Admin: 04/01/24 14:00 Dose: 999 mls/hr Documented By: HÉCTOR Parenteral Electrolytes (Plasma-Lyte A Ph 7.4) 250 mls @ 999 mls/hr IV .Q16M ONE Stop: 04/01/24 14:54 Last Admin: 04/01/24 14:44 Dose: Not Given Documented By: GARLANDN Sodium Chloride (Nss) 500 mls @ 999 mls/hr IV .Q31M ONE Stop: 04/01/24 14:13 Last Admin: 04/01/24 14:44 Dose: Not Given Documented By: HÉCTOR Magnesium Sulfate/Dextrose (Magnesium Sulfate 1gm / D5w Bag) Confirm Administered Dose 1 gm IV .STK-MED ONE Stop: 04/01/24 13:49 Last Admin: 04/01/24 14:00 Dose: Not Given Documented By: HÉCTOR Miscellaneous (Rapid Sequence Induction Bag) Confirm Administered Dose 1 each N/A .STK-MED ONE Stop: 04/01/24 11:36 Last Admin: 04/01/24 12:27 Dose: Not Given Documented By: HÉCTOR Miscellaneous (Stat Iv Infusion Titration Per Protocol) 1 each N/A NOW STA Stop: 04/01/24 12:20 Last Admin: 04/01/24 12:22 Dose: 1 each Documented By: HÉCTOR Norepinephrine Bitartrate (Norepinephrine/D5w 4 Mg/250 Ml) Confirm Administered Dose 4 mg IV .STK-MED ONE Stop: 04/01/24 11:45 Last Admin: 04/01/24 11:47 Dose: 4 mg Documented By: HÉCTOR Potassium Chloride (Potassium Chloride 10 Meq / 100ml Wtr) Confirm Administered Dose 10 meq IV .STK-MED ONE Stop: 04/01/24 13:50 Last Admin: 04/01/24 14:00 Dose: Not Given Documented By: HÉCTOR Imaging Data Radiologist's Impression: Chest X-Ray 04/01/24 11:34 XR chest 1V portable CLINICAL HISTORY: Sepsis COMPARISON STUDY: Chest CT January 27, 2024. Chest radiograph March 24, 2024. FINDINGS: Right internal jugular [id number] is partially imaged. Position appears unchanged. Bilateral shoulder arthroplasties are incidentally noted. Cardiomegaly is unchanged. Mediastinal contours are stable. There is no evidence for pulmonary edema or pneumonia. There is no pneumothorax or pleural effusion. IMPRESSION: No acute cardiopulmonary findings. No change in appearance of the chest. ACT 112: Negative or not required by law. Electronically signed by: Nino Oakes M.D. 04/01/2024 12:[address] 04/01/24 13:46 CT cervical spine wo con CLINICAL HISTORY: unwitness fall x3 on warfain, sepsis, lethargy TECHNIQUE: Multidetector row helical CT of the cervical spine was performed without administration of intravenous contrast. Coronal and sagittal reformations were obtained. Automated dose lowering techniques and/or adjustment according to patient size were utilized for this exam. Comparison: None available at the time of this dictation. FINDINGS: No acute fractures or subluxations are identified. Degenerative changes are seen in the visualized spine. The alignment is normal. Biapical scarring is seen in the lungs. IMPRESSION: Degenerative changes without evidence of acute bony injury. ACT 112: Negative or not required by law. Electronically signed by: Robert Gerber M.D. 04/01/2024 2:[address] 04/01/24 13:46 CT OF THE HEAD WITHOUT CONTRAST CLINICAL HISTORY: unwitnessed fall x3 on warfarin, sepsis, lethargy COMPARISON STUDY: MRI brain January 21, 2024. Head CT February 24, 2024. TECHNIQUE: Helical axial images of the head were obtained without IV contrast. Automated exposure control was utilized for the study. A dose lowering technique was utilized adhering to the principles of ALARA. FINDINGS: No acute intracranial hemorrhage, midline shift or mass effect is present. The ventricular system is unremarkable. The basal cisterns are patent. No extra-axial collections are present. There are no findings to suggest acute dural sinus thrombosis or acute territorial infarct. Bilateral basal ganglia calcification is incidentally noted. There are no calvarial fractures. Fluid density within the clivus is unchanged. Associated bony erosion appears unchanged from earlier exams. IMPRESSION: No acute intracranial findings. No change in appearance of the brain. ACT 112: Negative or not required by law. Electronically signed by: Nino Oakes M.D. 04/01/2024 2:45 PM Discharge Plan Visit Data Chief Complaint: Lethargic ED Provider: Tiffanie Escamilla Discharge Problem: Septic shock, Hypomagnesemia, Acute kidney injury superimposed on chronic kidney disease, AMS (altered mental status), Leukocytosis, Elevated lactic acid level, Acute hypokalemia Forms Stand Alone Forms: My [facility] Prescriptions Prescriptions: No Action warfarin 5 mg tablet 5 mg PO DAILY Rx Instructions: 5mg daily or UD per [facility] orally daily; pregabalin 50 mg capsule 50 mg PO DAILY allopurinol 100 mg tablet 100 mg PO QAM acetaminophen 650 mg Tablet Extended Release 650 mg PO Q4H PRN (Reason: Pain) ferrous sulfate 325 mg (65 mg iron) Tablet,Delayed Release (Dr/Ec) 325 mg PO BIDM Qty: 60 0RF metoprolol succinate 50 mg Tablet Extended Release 24 Hr 50 mg PO QAM Qty: 30 0RF sennosides-docusate sodium [Senokot-S] 8.6-50 mg Tablet 1 tab PO BID Qty: 60 0RF polyethylene glycol 3350 [Miralax] 17 gram powder in packet 17 g PO QAM furosemide 40 mg tablet 40 mg PO DAILY PRN (Reason: weight gain/swelling) potassium citrate 10 mEq (1,080 mg) tablet extended release 10 meq PO BID Rx Instructions: TAKE 1 TABLET BY MOUTH TWICE DAILY metoclopramide HCl [Reglan] 5 mg tablet 5 mg PO BID PRN (Reason: nausea and vomiting) Qty: 6 0RF Referrals Referrals: Stef Encarnacion MD [Primary Care Provider] -
[2024-04-01] MEDS: ACETAMINOPHEN 1,000 MG/100 ML VIAL IV STA (12:08)
[2024-04-01] MEDS: CEFEPIME 2000MG 2,000 MG/20 ML SYR IV STA (12:08)
[2024-04-01 12:09] LABS: Hematocrit (blood only) 42.4 % (42.0-52.0); Hemoglobin 13.6 g/dl (14.0-18.0); Mean Corpuscular Hemoglobin 31.5 pg (25.0-34.0); Mean Corpuscular Hgb Conc 32.1 g/dL (32.0-36.0); Mean Corpuscular Volume 98.1 fL (80.0-100.0); Mean Platelet Volume 10.3 fL (9.4-12.4); Platelet Count 306 K/uL (130-400); RDW Coefficient of Variation 16.3 % (11.5-14.5); RDW Standard Deviation 59.5 fL (36.4-46.3); Red Blood Count 4.32 M/uL (4.70-6.10); White Blood Count 12.39 K/ul (4.8-10.8)
[2024-04-01 12:18] LABS: HCO3 VBG 33 mmol/L; Oxygen Saturation VBG < 60.0 %; PCO2 VBG 54 mmHg (38-50); PO2 VBG < 20 mmHg
[2024-04-01 12:18] LABS: Bilirubin,Total 1.6 mg/dl (0.2-1.0); Magnesium 1.6 mg/dl (1.7-2.4); Potassium 3.4 mmol/L (3.5-5.1)
[2024-04-01] MEDS: STAT IV Infusion **Titration per Protocol STA (12:22)
[2024-04-01 12:24] LABS: BUN Creatinine Ratio 12.7 (10-20); Creatinine Clr Calc Pharmacy 33.8 ml/min; Total Protein 5.8 gm/dl (6.0-8.3)
[2024-04-01] MEDS: RAPID SEQUENCE INDUCTION BAG ONE (12:27)
[2024-04-01 12:29] LABS: Troponin I High Sensitivity 18.8 pg/ml (0-20)
[2024-04-01 12:31] LABS: INR 1.7 (0.9-1.1); Prothrombin Time 17.7 Seconds (9.0-12.0)
[2024-04-01 12:35] LABS: Bilirubin Direct 0.6 mg/dl (0-0.2)
[2024-04-01 12:36] LABS: Basophils # (auto) 0.07 K/uL (0.00-0.20); Basophils % (auto) 0.6 %; Eosinophils # (auto) 0.25 K/uL (0.00-0.50); Immature Granulocytes # (auto) 0.04 K/uL (0.01-0.20); Immature Granulocytes % (auto) 0.3 %; Lymphocytes # (auto) 5.04 K/uL (1.20-3.40); Lymphocytes % (auto) 40.7 %; Monocytes # (auto) 1.84 K/uL (0.11-0.59); Monocytes % (auto) 14.9 %; Neutrophils # (auto) 5.15 K/uL (1.40-6.50); Neutrophils % (auto) 41.5 %; Polychromasia 1+; Tear Drop Cells 1+
--- NOTE | 2024-04-01 12:39 | XRay Report ---
XR chest 1V portable CLINICAL HISTORY: Sepsis COMPARISON STUDY: Chest CT January 27, 2024. Chest radiograph March 24, 2024. FINDINGS: Right internal jugular [id number]-[id number] is partially imaged. Position appears unchanged. Bilat eral shoulder arthroplasties are incidentally noted. Cardiomegaly is unchanged. Mediastinal contours are stable. There is no evidence for pulmonary edema or pneumonia. There is no pneumothorax or pleura l effusion. IMPRESSION: No acute cardiopulmonary findings. No change in appearance of the chest. ACT 112: Negative or not required by law. Electronically signed by: Nino Oakes M.D. 04/01/2024 12:38 PM
[2024-04-01] MEDS: VANCOMYCIN HCL 2,000 MG in SODIUM CHLORIDE 0.9% 500 ML IV ONE (12:50)
[2024-04-01 13:16] LABS: Adenovirus PCR Not Detected (NotDetected); Bordetella parapertussis PCR Not Detected (NotDetected); Bordetella pertussis PCR Not Detected (NotDetected); Chlamydia pneumoniae PCR Not Detected (NotDetected); Coronavirus 229E PCR Not Detected (NotDetected); Coronavirus CoV-2 (COVID19)PCR Not Detected (NotDetected); Coronavirus HKU1 PCR Not Detected (NotDetected); Coronavirus NL63 PCR Not Detected (NotDetected); Coronavirus OC43PCR Not Detected (NotDetected); Human Metapneumovirus PCR Not Detected (NotDetected); Influenza A PCR Not Detected (NotDetected); Influenza B PCR Not Detected (NotDetected); Mycoplasma pneumoniae PCR Not Detected (NotDetected); Parainfluenza Virus 1 PCR Not Detected (NotDetected); Parainfluenza Virus 2 PCR Not Detected (NotDetected); Parainfluenza Virus 3 PCR Not Detected (NotDetected); Parainfluenza Virus 4 PCR Not Detected (NotDetected); Respiratory Syncytial VirusPCR Not Detected (NotDetected); Rhinovirus/Enterovirus PCR Not Detected (NotDetected)
[2024-04-01 13:22] LABS: Appearance Urine Clear (Clear); Bacteria Urine Automated None Seen (None Seen); Bilirubin Urine Negative (Negative); Blood Urine 1+ (Negative); Color Urine Yellow; Epithelial Cell Urine Auto 0-2 /hpf (0-2); Glucose Urine UA Negative (Negative); Ketones Urine Negative (Negative); Leukocyte Esterase Urine Negative (Negative); Nitrite Urine Negative (Negative); Protein Urine Negative (Negative); RBC Urine Automated >20 /hpf (0-2); Specific Gravity Urine 1.009 (1.000-1.030); Urobilinogen Urine Negative (Negative); WBC Urine Automated 0-5 /hpf (0-5); pH Urine 6.5 (4.5-7.5)
[2024-04-01] MEDS: POTASSIUM CHLORIDE 10 MEQ / 100ML WTR IV ONE (14:00)
[2024-04-01] MEDS: PLASMA-LYTE A 1,000 ML IV ONE (14:00)
[2024-04-01] MEDS: MAGNESIUM SULFATE 1GM / D5W BAG IV ONE (14:00)
[2024-04-01] MEDS: MAGNESIUM SULFATE / D5W 1 GM/100 ML BAG IV SCH (14:00)
--- NOTE | 2024-04-01 14:05 | History & Physical Report ---
Date of Service April 01, 2024 Assessment & Plan (1) Goals of care, counseling/discussion: Plan: Goals of care: Discussed with patient's family and surrogate decision-maker at the bedside. Tio would want full medical measures up to and including ICU admi ssion and vasopressors for treatment of acute conditions. He would not want resuscitation in the event of a cardiopulmonary arrest and confirm DNR/DNI status. He would not want ventilation for declining respiratory status or breathing tube under any circumstances. He would not want dialysis in the event of renal failure (2) Sepsis: Plan: Sepsis left lower extremity cellulitis Febrile, hypotensive, with leukocytosis of 12 on admission - Most likely source left lower extremity infection worsening x3 days not on outpt abx, purulent erythematous left lower extremity ulceration is present with warmth tenderness and swelling. CTleft lower leg ordered to evaluate for deep infection - On ER evaluation patient was rigoring, was not able to give verbal answers to questions and minimally responsive. BSG 103. Lactate was elevated at 3.6. Patient was placed on cefepime, vancomycin and subsequently started on vasopressors for persistent hypotension following 2 L NSS resuscitation. Sepsis IBW recommendations 2427 cc, ABW 3126 cc. UA is not infected appearing. Patient still hypotensive and having uptitrated norepinephrine at time of hospitalist initial evaluation. Will complete fluid resuscitation to ABW recommendations of 3126 with 1250 cc additional crystalloid, and run remaining send 50 cc of the second bag at maintenance. Due to worsening concurrent hypokalemia saline deferred and Plasma-Lyte preferred. Magnesium x 2 g, K rider x 2 ordered for hypokalemia and hypomagnesemia. - May continue cefepime/vancomycin for severe sepsis, suspect skin/soft tissue source of left lower extremity on admission. No need for pulmonary coverage on further evaluation then can transition vancomycin to daptomycin for renal protection. Blood cultures pending Surface culture pending Patient is with history of recent steroid use for checkpoint inhibitor encephalitis, random cortisol ordered. If persistent hypotension despite adequate fluid resuscitation and antibiotics or if cortisol and is appropriately suppressed will start hydrocortisone. 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 Random cortisol low. Stress dose hydrocortisone continued (3) Unwitnessed fall: Plan: Multiple Falls on Warfarin - Patient has had 5 falls over the weekend, 3 of which were unwitnessed. He was not mentating at his normal baseline the last 2 days, although had not expressed headache or neck pain. Given critical illness and unreliable mental status, CThead and CTC-spine has been ordered. Patient is with moaning in pain on right lower quadrant abdominal palpation. CTA/P ordered to rule out solid organ injury/bleeding due to falls while on warfarin. Does have a chronic left chest hematoma which was stable at last visit. On physical exam overlying chest is with some dusky cruz color however no acute ecchymoses, firm hematoma, or crepitus is noted. - Moans on palpation of L hip. CT not evidence of fracture (4) Melanoma: Plan: Stage III melanoma S/p surgical revision; underwent Keytruda adjuvant therapy last treatment of which was deferred due to the development of encephalitis. This was treated with steroids and patient returned to 75-80% of his baseline per family, but is gradually declined somewhat since his prior discharge PET 01/2023 with no evidence of mets. Last CTA/P 03/24/[address] 01/23/2024 without evidence of metastasis No acute change in management Port remains in place, without overlying evidence of infection (5) Pulmonary embolism: Plan: History of PE 2021 On warfarin, INR admission 1.7. Patient is subtherapeutic and at risk of VTE. Has completed more than 6 months of treatment for his PE. Warfarin is therapeutic subtherapeutic, will hold anticoagulation and prophylaxis pending trauma evaluation and hemoglobin stability. If no active bleeding hemoglobin is stable then can restart Lovenox at that time Large left chest wall hematoma at prior admission. Chest wall hematoma Residual at last intervention. Surgical intervention was not recommended CT shows decreasing size of hematoma on admission (6) Chronic kidney disease, stage 3: Plan: CKD: Patient with transient CKD 3 while on Keytruda, after discontinued return to a baseline creatinine of around 1.2 Creatinine acutely elevated on admission in setting of sepsis 2.2, and rising at 2.4 following initial resuscitation Suspect prerenal in the setting of severe sepsis. Nephrotoxins held. If no need for pulmonary coverage on further evaluation then can transition to daptomycin for renal protection. Trend BMP daily Plan DVT prophylaxis: Pharmacal prophylaxis deferred pending evaluation, then may start Lovenox 100 milligrams twice daily as warfarin is subtherapeutic Disposition: ICU on vasopressors Diet: N.p.o. CODE STATUS: DNR/DNI. No intubation under any circumstances. No dialysis in the event of renal failure. History of Present Illness Primary Care Provider: Stef Encarnacion MD Tio Maldonado is a 78-year-old male who presented with lethargy and confusion. He was in route to an outside appointment when he became minimally responsive, EMS was called. In the ER patient is hypotensive and lethargic. History is collected with the assistance of patient's and daughter at the bedside patient is not able to give collateral at time of initial assessment. Per family patient had been gradually declining since his prior discharge several weeks ago but returned to about 75% of his normal baseline after last discharge before rapidly declining over this past weekend. They note that he has had 5 falls since Monday, 2 of which were witnessed and were without head strike 3 of which were unwitnessed. Patient has been more lethargic and sedated which has greatly worsened in the last day and a half. Patient had been complaining of fevers and chills. He has chronic right lower quadrant abdominal pain which does not seem to have changed, and also has chronic nausea/nonbloody nonbilious emesis for several months which has been present over the weekend but again seems somewhat unchanged from prior. Had complained of left lower extremity warmth, tenderness and swelling. This began Monday, approximately 3 days ago and has progressively worsened. Family reports he has not been taking any antibiotics over the weekend last antibiotics were around his prior discharge. He had previously been on steroids for Keytruda induced encephalopathy, no steroids since that time. They report that he has not had a heart attack or WI to their knowledge. Kidney numbers had risen while on Keytruda, although they believe that they improved back to normal after this was stopped. Otherwise denies kidney disease. No tobacco use, no alcohol use Reports sensitivity and easy confusion on sedating and narcotic medications, no known rash/hives allergies to antibiotics CODE STATUS: DNR/DNI, no intubation under any circumstances. Would not want dialysis. Is okay with ICU admission, vasopressors, and central lines for treatment of acute infection and hypotension. Allergies Allergy/AdvReac Type Severity Reaction Status Date / Time gabapentin Allergy Intermediate Rash Verified 02/24/24 09:51 tramadol Allergy Intermediate Rash and Verified 02/24/24 09:51 itchiness hydrocodone Allergy Mild itchy Verified 02/24/24 09:51 oxycodone Allergy Mild itchy Verified 02/24/24 09:51 carbamazepine Allergy Unknown Unknown Verified 02/24/24 09:51 ciprofloxacin Allergy Unknown Unknown Verified 02/24/24 09:51 Home Medications Medication Instructions Recorded Confirmed Type acetaminophen 650 mg 650 mg PO Q4H PRN Pain 01/27/24 04/01/24 History tablet,extended release allopurinol 100 mg tablet 100 mg PO QAM 01/27/24 04/01/24 History ferrous sulfate 325 mg (65 mg 325 mg PO BIDM #60 tabs 02/06/24 04/01/24 Rx iron) tablet,delayed release metoprolol succinate 50 mg 50 mg PO QAM #30 tabs 02/06/24 04/01/24 Rx tablet,extended release 24 hr sennosides 8.6 mg-docusate sodium 1 tab PO BID #60 tabs 02/06/24 04/01/24 Rx 50 mg tablet (Senokot-S) polyethylene glycol 3350 17 gram 17 g PO QAM 02/10/24 04/01/24 History oral powder packet (Miralax) furosemide 40 mg tablet 40 mg PO DAILY PRN weight 02/24/24 04/01/24 History gain/swelling pregabalin 50 mg capsule 50 mg PO DAILY 03/11/24 04/01/24 History metoclopramide HCl 5 mg tablet 5 mg PO BID PRN nausea and 03/24/24 04/01/24 Rx (Reglan) vomiting #6 tabs potassium citrate 10 mEq (1,080 10 meq PO BID 03/24/24 04/01/24 History mg) tablet,extended release warfarin 5 mg tablet 5 mg PO DAILY 03/26/24 04/01/24 History Past Med/Surg History Problem List (Updated 04/01/24 @ 15:24 by Pete Prince MD) Renal failure (ARF), acute on chronic Severe sepsis with septic shock Unwitnessed fall Sepsis Goals of care, counseling/discussion Nausea (Acute) Weakness (Acute) Fluid overload Physical deconditioning Fever Abdominal pain (Acute) Hypoxia (Acute) Melanoma Subtherapeutic international normalized ratio (INR) (Acute) Abdominal pain Hypoxia Elevated LFTs Acute blood loss anemia Dysuria Hematoma of chest wall (Acute) Chest pain (Acute) Metabolic encephalopathy Demand ischemia Altered mental status Acute kidney injury superimposed on CKD Complicated UTI (urinary tract infection) Severe sepsis Hypovolemic shock Vomiting (Acute) Hypomagnesemia (Acute) Bilateral cellulitis of lower leg (Acute) Bilateral leg edema (Acute) Prostate nodule ELISABETH (acute kidney injury) Hypomagnesemia Bilateral cellulitis of lower leg (Acute) Leg swelling (Acute) PERALTA (dyspnea on exertion) (Acute) Cellulitis Incontinence Port-A-Cath in place (01/24/23) Infusaport Insertion to right internal jugular with Fluoroscopy(Right) - Vamsi Tolbert, Allergic reaction (Acute) Pulmonary embolism Trigeminal neuralgia (Acute) Trigeminal neuralgia (Acute) Vitamin D deficiency (Acute) Hypertension (Acute) Chronic kidney disease, stage 3 (Acute) Vitamin D deficiency (Chronic) Prostate cancer screening Thoracic ascending aortic aneurysm Gastritis Insomnia Encounter for pre-operative examination Primary osteoarthritis, left shoulder Low back pain with sciatica (Acute) 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 This is similar to the prior studies." Follows with Dr. Marshall Hypercholesterolemia (Acute) Stone in kidney Hx Hypertension (Chronic) Chronic kidney disease, stage III (moderate) (Chronic) Trigeminal neuralgia (Acute) s/p radiated nerve, No issues x several years Medical History Obesity Encephalitis Pulmonary embolism on long-term anticoagulation therapy Atrial fibrillation and flutter Pulmonary embolism Constipated COVID-19 Osteoarthritis Surgical History History of left shoulder replacement History of right shoulder replacement History of total left knee replacement (TKR) History of total right knee replacement (TKR) with revision History of colonoscopy History of inguinal hernia repair History of cancer surgery Left side of neck resection + lymph node removal History of tooth extraction History of tonsillectomy and adenoidectomy History of sinus surgery History of cystoscopy History of cataract surgery bilateral History of back surgery L4-L5 with screws Family History Family/Other Diabetes Heart disease Nephrolithiasis Other No family history of adverse response to anesthesia Social History Smoking Status: Never smoker Second Hand Exposure: No; Do You Dip or Chew Tobacco: No; Hx Alcohol Use: No Hx Substance Use: No Preferred Language: Sinhala Communication Ability: Effective Coat Operator Required: No Beliefs That Will Affect Care: None Current Living Situation: Spouse current occupational status: retired Feels Safe at Home: No Is there a partner from a previous relationship who is making you feel unsafe now?: No Seatbelt Use: always Assistive Devices: Cane and Oxygen - Continuous Physical Exam Physical Exam: General: LEthargic, arouses transiently to voice but peralta snot answer questions. Moans to palpation of RLQ abdomen. Appears critically ill. HEENT: Atraumatic, normocephalic. Pupils equally reactive to light. Vision/hearing testing limited by mental status Pulm: Diminished, coarse in the bases but no wheezes/rhonchi are noted. Symmetrical chest rise. No increased work of breathing. No respiratory distress. Cardiac: Tachycardic, -mrg radial pulses intact and symmetrical. Abdominal: Softly distended. Patient moans on right lower quadrant palpation. Ext: Moans on palpation of L hip. LLE with anterior disla grade 3 ulcer with some purulent discharge and surrounding erythema, warmth, tenderness. Strength/sensation testing is not able to be performed due to mental status. Right lower extremity with scant areas of slightly increased pinkness but no warmth or tenderness Results & Data Results & Data Vital Signs (Past 12 Hours) Vital Signs Temp Pulse Resp BP Pulse Ox O2 Del Method O2 Flow Rate 04/01/24 13:50 131/56 L 04/01/24 13:45 109 H 16 119/58 L 98 04/01/24 13:44 98/57 L 04/01/24 13:42 108 H 16 55/40 L 98 04/01/24 13:36 70/45 L 04/01/24 13:36 109 H 18 70/45 L 96 04/01/24 13:30 76/51 L 04/01/24 13:26 99/70 L 04/01/24 13:16 94/33 L 04/01/24 13:11 105 H 18 91/41 L 97 Nasal Cannula 4 04/01/24 13:09 118 H 19 77/45 L 95 Nasal Cannula 4 04/01/24 13:00 113 H 17 83/45 L 98 Nasal Cannula 4 04/01/24 12:55 114 H 20 91/40 L 97 Nasal Cannula 4 04/01/24 12:50 113 H 18 96/67 L 98 Nasal Cannula 4 04/01/24 12:46 116 H 16 121/52 L 98 Nasal Cannula 4 04/01/24 12:40 108 H 18 85/46 L 96 Nasal Cannula 4 04/01/24 12:36 108 H 18 108/49 L 95 Nasal Cannula 4 04/01/24 12:33 102 H 20 106/89 94 Nasal Cannula 4 04/01/24 12:25 108 H 20 94/73 L 97 Nasal Cannula 4 04/01/24 12:21 108 H 24 95/48 L 98 Nasal Cannula 4 04/01/24 12:15 104 H 18 83/48 L 98 Nasal Cannula 4 04/01/24 12:10 117 H 18 117/73 96 Nasal Cannula 4 04/01/24 12:03 123 H 20 70/55 L 97 Nasal Cannula 4 04/01/24 12:00 39.6 C H 04/01/24 11:56 118 H 16 124/95 96 Nasal Cannula 4 04/01/24 11:54 112 H 04/01/24 11:48 114 H 24 92/59 L 96 Nasal Cannula 4 04/01/24 11:45 114 H 22 66/45 L 92 Nasal Cannula 4 04/01/24 11:43 118 H 16 115/65 96 Nasal Cannula 4 PG Care Time/CCT Total # of Minutes Spent Total Time Spent with Patient: Total time spent is greater than 50% in coordination of care (as documented) at patient's floor/unit and/or counseling patient: Coding Level of Care Code 47692 INT INP/OBS CARE 3/75MIN Diagnoses Goals of care, counseling/discussion Z71.89 Sepsis A41.9 Unwitnessed fall R29.6 Melanoma C43.9 Pulmonary embolism I26.99 Chronic kidney disease, stage 3 N18.3
[2024-04-01 14:13] LABS: iSTAT Creatinine 2.4 mg/dl (0.6-1.3); iSTAT Hemoglobin 12.9 g/dl (14.0-18.0); iSTAT Ionized Calcium 1.22 mmol/l (1.12-1.32)
--- NOTE | 2024-04-01 14:35 | CT Scan Report ---
CT cervical spine wo con CLINICAL HISTORY: unwitness fall x3 on warfain, sepsis, lethargy TECHNIQUE: Multidetector row helical CT of the cervical spine was performed without administration of intravenous contrast. Coronal and sagittal reformations were obtained. Automated dose lowering techn iques and/or adjustment according to patient size were utilized for this exam. Comparison: None available at the time of this dictation. FINDINGS: No acute fractures or subluxations are identified. Degenerative changes are seen in the visualized sp ine. The alignment is normal. Biapical scarring is seen in the lungs. IMPRESSION: Degenerative changes without evidence of acute bony injury. ACT 112: Negative or not required by law. Electronically signed by: Robert Gerber M.D. 04/01/2024 2:34 PM
[2024-04-01] MEDS: POTASSIUM CHLORIDE / WTR 10 MEQ/100 ML PLCT IV SCH (14:41)
[2024-04-01] MEDS: PLASMA-LYTE A 250 ML IV ONE (14:44)
[2024-04-01] MEDS: SODIUM CHLORIDE 0.9% 500 ML IV ONE (14:44)
--- NOTE | 2024-04-01 14:47 | CT Scan Report ---
CT OF THE HEAD WITHOUT CONTRAST CLINICAL HISTORY: unwitnessed fall x3 on warfarin, sepsis, lethargy COMPARISON STUDY: MRI brain January 21, 2024. Head CT February 24, 2024. TECHNIQUE: Helical axial images of the head were obtained without IV contrast. Automated exposure con trol was utilized for the study. A dose lowering technique was utilized adhering to the principles o f ALARA. FINDINGS: No acute intracranial hemorrhage, midline shift or mass effect is present. The ventricular system is unremarkable. The basal cisterns are patent. No extra-axial collections are present. There are no findings to suggest acute dural sinus thrombosis or acute territorial infarct. Bilateral basal ganglia calcification is incidentally noted. There are no calvarial fractures. Fluid density within the clivus is unchanged. Associated bony erosion appears unchanged from earlier exams. IMPRESSION: No acute intracranial findings. No change in appearance of the brain. ACT 112: Negative or not required by law. Electronically signed by: Nino Oakes M.D. 04/01/2024 2:45 PM
--- NOTE | 2024-04-01 14:57 | CT Scan Report ---
CT femur LT wo con CLINICAL HISTORY: sepsis, purulent LLE infection COMPARISON STUDY: CT of the abdomen and pelvis March 24, 2024. Left knee radiographs May 13. TECHNIQUE: Axial images of the left thigh and femur were obtained without IV contrast. Sagittal and c oronal reconstructions were viewed. Automated exposure control was utilized for the study. A dose lo wering technique was utilized adhering to the principles of ALARA. FINDINGS: There are no fractures within the left femur. No areas of bony erosion are identified. Ther e is no soft tissue gas within the left thigh. Visualized portions of the left knee arthroplasty are intact. There is no lucency or fracture adjacent to the femoral component of the left knee arthroplas ty. No fluid collections within the left thigh are present. There is mild subcutaneous edema of the l ateral left thigh with skin thickening. No muscular abnormality of the left thigh is identified. IMPRESSION: 1. No fractures within the left femur. No evidence for acute osteomyelitis. No fracture or lucency a djacent to the femoral component of the left knee arthroplasty. 2. Mild subcutaneous edema of the lateral left thigh. No associated fluid collections. No soft tissue gas. ACT 112: Negative or not required by law. Electronically signed by: Nino Oakes M.D. 04/01/2024 2:54 PM
--- NOTE | 2024-04-01 15:22 | CT Scan Report ---
CT chest diagnostic wo con, CT abd pelvis wo con CLINICAL HISTORY: 78 years-old Male with critically ill, falls w warfain, L chest wall evelin. Acute c hest and abdominal trauma status post fall TECHNIQUE: Multiaxial CT images of the chest, abdomen and pelvis were performed without contrast. A dose lowering technique was utilized adhering to the principles of ALARA. COMPARISON: , CT abdomen and pelvis 03/24/2024, chest CT January 27, 2024 FINDINGS: CT CHEST: Unremarkable thyroid. Right IJ catheter distal tip terminates within the mid SVC. Mild card iomegaly with advanced coronary artery calcifications. Unchanged 1.8 x 1.2 cm subpleural nodule adjac ent to the right upper lung on image 116 series 8. Partially calcified mediastinal lymph nodes measur e up to 1.4 cm. Fusiform dilation of the ascending thoracic aorta, 4.5 x 4.5 cm. Dilation of the pulm onary arteries suggestive of pulmonary arterial hypertension. Small pleural effusions. Intralobular septal thickening. No pneumothorax. Groundglass densities with bibasilar consolidation and mucous plugging. Central airways appear patent. Subacute to chronic left pectoralis intramuscular hematoma redemonstrated, decreased in size from prior. This measures up to a pproximately 6 x a 19 cm, previously 11 x 18 cm. Bilateral shoulder arthroplasties. No acute fracture identified. ABDOMEN/PELVIS: No pneumoperitoneum. The unenhanced spleen, pancreas and adrenal glands are unremarka ble. Unremarkable gallbladder. Severe hepatic steatosis. Bilateral renal sinuses with perinephric str anding redemonstrated. There is mild thickening of the collecting systems and ureters. Decompressed b ladder with See catheter in place. Atherosclerosis of the aorta. Trace free pelvic fluid. No lympha denopathy. No bowel obstruction or bowel wall thickening. Colonic diverticulosis. Moderate colonic fecal retenti on. Normal appendix. Tiny fat filled umbilical hernia. Degenerative changes of the shoulders and spin e. Degenerative changes of the lumbar spine. No acute fracture identified. IMPRESSION: 1. Decreased size of the subacute to chronic left chest wall hematoma. 2. No acute posttraumatic intrathoracic or intra-abdominal abnormality identified. 3. No acute fracture. 4. Cardiomegaly with interstitial pulmonary edema and trace pleural effusions. 5. Mild bibasilar consolidation may represent atelectasis versus pneumonitis. 6. No bowel obstruction or bowel wall thickening. 7. Body wall edema with trace ascites. 8. Bilat. perinephric stranding with urothelial thickening of the renal collecting systems redemonstr ated. Correlate with urinalysis. ACT 112: Negative or not required by law. Electronically signed by: Dominick George M.D. 04/01/2024 3:20 PM
--- NOTE | 2024-04-01 15:26 | Critical Care Consultation ---
Date of Consultation April 01, 2024 Assessment & Plan (1) Severe sepsis with septic shock: (2) Renal failure (ARF), acute on chronic: (3) Melanoma: (4) Subtherapeutic international normalized ratio (INR): (5) Physical deconditioning: Plan Impression: 78-year-old male with metastatic melanoma, chronic kidney disease, diastolic dysfunction, and declining physical performance status admitted with altered levels of consciousness found to be in severe sepsis with septic shock. Initial lactate was elevated at 4 now down to below 3. He is been initiated on broad-spectrum antibiotic and has received appropriate crystalloids. Portals of entry would include the skin and soft tissue infections as well as potential sources given the imaging findings. Recommendations: 1. Neurologic: Encephalopathy: Likely metabolic in etiology. The patient had similar evaluation last month which was quite extensive including imaging LP and EEG as well as neurology consultation. This included treatment with high-dose steroids for presumed ICI related toxicity. Unclear if the patient's mental status never improved to normal as he has had frequent falls at home. I do not see an indication for additional workup at this point in time other than supportive care and treating underlying metabolic issues. The patient's does report that she is unable to care for him at home and would like for him to be placed. We discussed that if the patient's condition should not improve hospice might be an option and the family is readily agreeable. 2. CV: Severe sepsis with septic shock. The patient's received 3 L of crystalloid in the emergency room and lactate is improving. Continue supportive care and wean vasopressors as tolerated to keep systolics above 90. Random cortisol pending. Echocardiogram performed last month showed an EF of 65-70 with a moderately dilated right ventricle. No indication for repeating his echocardiogram currently. Hold on central line and arterial line currently in the hopes that we can wean down his pressors to some degree 3. Pulm: No current active issues. Prior history of PE and on anticoagulation 4. Renal: Acute renal failure superimposed on chronic kidney disease. Suspect ATN due to hypoperfusion and hypotension. Continue to follow at this point in time. Judiciously replace electrolytes. Acid-base status preserved. Volume status adequate. Low threshold for involving nephrology in his case should he deteriorate however the patient and family are apparently in agreement that he would not want renal replacement therapy in the event of deterioration of his renal function. 5. GI: Intermittent abdominal pain: Imaging pending per admitting service. Exam unrevealing. 6. Endocrine: Glycemic control per protocol. Random cortisol pending. 7. ID: Day #1 cefepime vancomycin. Seems reasonable for now. Await culture data and response to therapy. 8. Heme/Onc: Metastatic melanoma. Not receiving any therapy with no plans to receive additional chemo or immunotherapy in the future. Long discussion with family. They had apparently had some discussions regarding palliative care and hospice prior to this hospitalization but never acted on it. May be appropriate to reengage palliative care depending on clinical response over the next 12 to 24 hours. Confirmed no intubation mechanical ventilation or CPR in the event of a cardiac arrest. If his pressor requirements escalated significantly, would not recommend high dose multiple pressors at this time as it would be unlikely to improve the patient's overall kidney function and outcome. It appears the patient has deteriorated over time with multiple falls and inability to remain out of the hospital in the setting of advanced melanoma for which she is no longer requiring therapy. Will see how he does but may be appropriate to consider palliative care in the near future. Patient is critically ill with significant possibility of clinical decline and/or . Total of 57 minutes in critical care time was spent in evaluation management coordination of care for this patient. History of Present Illness History of Present Illness Asked by hospitalist to assist in evaluation management this patient on vasopressors with severe sepsis with septic shock. History is obtained from discussion with family at bedside, the admitting hospitalist, and reviewed electronic medical record. Patient is not able to provide significant history at this time. The patient is a 78-year-old male with a history of metastatic melanoma. Patient had been maintained on adjuvant pembrolizumab during a recent hospitalization he was felt to possibly have ICI induced encephalopathy. He was placed on high-dose steroids and pembrolizumab was discontinued. The patient is had significant decline in functional status with frequent falls at home. He has been unable to remain out of the hospital for more than a few weeks at a time. His last hospitalization was complicated by acute kidney injury as well. He was brought to the emergency room today due to decreasing level of consciousness. Patient was found to be hypotensive in the emergency room with presumed portal of entry lower extremity excoriation. The patient's reports that he scraped his leg on a truck few days ago. The patient was initiated on norepinephrine in the emergency room and treated with cefepime and vancomycin. He is found to be in acute renal failure. Blood gas did not show significant acidosis. The patient was admitted to the medicine service for additional evaluation. Patient is currently arousable to verbal and tactile stimulus and does intermittently follow some commands but does not reliably answer questions. Allergies Allergy/AdvReac Type Severity Reaction Status Date / Time gabapentin Allergy Intermediate Rash Verified 02/24/24 09:51 tramadol Allergy Intermediate Rash and Verified 02/24/24 09:51 itchiness hydrocodone Allergy Mild itchy Verified 02/24/24 09:51 oxycodone Allergy Mild itchy Verified 02/24/24 09:51 carbamazepine Allergy Unknown Unknown Verified 02/24/24 09:51 ciprofloxacin Allergy Unknown Unknown Verified 02/24/24 09:51 Home Medications Medication Instructions Recorded Confirmed Type acetaminophen 650 mg 650 mg PO Q4H PRN Pain 01/27/24 04/01/24 History tablet,extended release allopurinol 100 mg tablet 100 mg PO QAM 01/27/24 04/01/24 History ferrous sulfate 325 mg (65 mg 325 mg PO BIDM #60 tabs 02/06/24 04/01/24 Rx iron) tablet,delayed release metoprolol succinate 50 mg 50 mg PO QAM #30 tabs 02/06/24 04/01/24 Rx tablet,extended release 24 hr sennosides 8.6 mg-docusate sodium 1 tab PO BID #60 tabs 02/06/24 04/01/24 Rx 50 mg tablet (Senokot-S) polyethylene glycol 3350 17 gram 17 g PO QAM 02/10/24 04/01/24 History oral powder packet (Miralax) furosemide 40 mg tablet 40 mg PO DAILY PRN weight 02/24/24 04/01/24 History gain/swelling pregabalin 50 mg capsule 50 mg PO DAILY 03/11/24 04/01/24 History metoclopramide HCl 5 mg tablet 5 mg PO BID PRN nausea and 03/24/24 04/01/24 Rx (Reglan) vomiting #6 tabs potassium citrate 10 mEq (1,080 10 meq PO BID 03/24/24 04/01/24 History mg) tablet,extended release warfarin 5 mg tablet 5 mg PO DAILY 03/26/24 04/01/24 History Patient History Medical History Obesity Encephalitis Pulmonary embolism on long-term anticoagulation therapy Atrial fibrillation and flutter Pulmonary embolism Constipated COVID-19 Osteoarthritis Surgical History History of left shoulder replacement History of right shoulder replacement History of total left knee replacement (TKR) History of total right knee replacement (TKR) with revision History of colonoscopy History of inguinal hernia repair History of cancer surgery Left side of neck resection + lymph node removal History of tooth extraction History of tonsillectomy and adenoidectomy History of sinus surgery History of cystoscopy History of cataract surgery bilateral History of back surgery L4-L5 with screws Family History Family/Other Diabetes Heart disease Nephrolithiasis Other No family history of adverse response to anesthesia Social History Smoking Status: Never smoker Second Hand Exposure: Yes; Do You Dip or Chew Tobacco: No; Hx Alcohol Use: No Hx Substance Use: No Preferred Language: [place] Communication Ability: Effective Technical Systems Architect Required: No Beliefs That Will Affect Care: None Current Living Situation: Spouse current occupational status: retired Feels Safe at Home: Yes Seatbelt Use: always Assistive Devices: Cane, Walker and Wheelchair Review of Systems Review of Systems: Unreliable from the patient. Please refer to admission H&P Physical Exam Constitutional: WD/WN, vitals as above + obese; no acute distress Neck: trachea midline, no thyromegaly Respiratory: normal respiratory effort, lungs clear to auscultation Cardiovascular: RRR, no murmur, no edema Gastrointestinal (Abdomen): normal bowel sounds, soft, nontender, no hepatosplenomegaly Musculoskeletal: Bilateral lower chronic venous stasis changes in the lower extremities with some excoriations on the lateral aspect of the left lower extremity. No crepitus palpable. There is some pain. Skin: no rashes, warm and dry Neurologic: Nonfocal exam Lymphatic: no cervical lymphadenopathy Results & Data Results & Data Vital Signs (Past 12 Hours) Vital Signs Temp Pulse Resp BP Pulse Ox O2 Del Method O2 Flow Rate 04/01/24 15:06 113 H 18 92/51 L 95 Nasal Cannula 4 04/01/24 15:00 112 H 96/50 L 95 Nasal Cannula 4 04/01/24 14:55 113 H 16 90/57 L 95 Nasal Cannula 4 04/01/24 14:50 111 H 18 109/61 95 Nasal Cannula 4 04/01/24 14:40 114 H 16 133/60 96 Nasal Cannula 4 04/01/24 14:31 113 H 18 118/51 L 97 Nasal Cannula 4 04/01/24 14:27 115 H 20 113/57 L 95 Nasal Cannula 4 04/01/24 14:05 113 H 18 78/58 L 98 Nasal Cannula 4 04/01/24 14:00 112 H 16 111/56 L 97 Nasal Cannula 4 04/01/24 13:55 111 H 18 89/59 L 97 Nasal Cannula 4 04/01/24 13:50 112 H 18 131/56 L 95 Nasal Cannula 4 04/01/24 13:50 131/56 L 04/01/24 13:45 109 H 16 119/58 L 98 04/01/24 13:44 98/57 L 04/01/24 13:42 108 H 16 55/40 L 98 04/01/24 13:36 70/45 L 04/01/24 13:36 109 H 18 70/45 L 96 04/01/24 13:30 76/51 L 04/01/24 13:26 99/70 L 04/01/24 13:16 94/33 L 04/01/24 13:11 105 H 18 91/41 L 97 Nasal Cannula 4 04/01/24 13:09 118 H 19 77/45 L 95 Nasal Cannula 4 04/01/24 13:00 113 H 17 83/45 L 98 Nasal Cannula 4 04/01/24 12:55 114 H 20 91/40 L 97 Nasal Cannula 4 04/01/24 12:50 113 H 18 96/67 L 98 Nasal Cannula 4 04/01/24 12:46 116 H 16 121/52 L 98 Nasal Cannula 4 04/01/24 12:40 108 H 18 85/46 L 96 Nasal Cannula 4 04/01/24 12:36 108 H 18 108/49 L 95 Nasal Cannula 4 04/01/24 12:33 102 H 20 106/89 94 Nasal Cannula 4 04/01/24 12:25 108 H 20 94/73 L 97 Nasal Cannula 4 04/01/24 12:21 108 H 24 95/48 L 98 Nasal Cannula 4 04/01/24 12:15 104 H 18 83/48 L 98 Nasal Cannula 4 04/01/24 12:10 117 H 18 117/73 96 Nasal Cannula 4 04/01/24 12:03 123 H 20 70/55 L 97 Nasal Cannula 4 04/01/24 12:00 39.6 C H 04/01/24 11:56 118 H 16 124/95 96 Nasal Cannula 4 04/01/24 11:54 112 H 04/01/24 11:48 114 H 24 92/59 L 96 Nasal Cannula 4 04/01/24 11:45 114 H 22 66/45 L 92 Nasal Cannula 4 04/01/24 11:43 118 H 16 115/65 96 Nasal Cannula 4 Critical Care Results & Data Vital Signs (Past 12 Hours) Vital Signs Temp Pulse Resp BP Pulse Ox O2 Del Method O2 Flow Rate 04/01/24 15:06 113 H 18 92/51 L 95 Nasal Cannula 4 04/01/24 15:00 112 H 96/50 L 95 Nasal Cannula 4 04/01/24 14:55 113 H 16 90/57 L 95 Nasal Cannula 4 04/01/24 14:50 111 H 18 109/61 95 Nasal Cannula 4 04/01/24 14:40 114 H 16 133/60 96 Nasal Cannula 4 04/01/24 14:31 113 H 18 118/51 L 97 Nasal Cannula 4 04/01/24 14:27 115 H 20 113/57 L 95 Nasal Cannula 4 04/01/24 14:05 113 H 18 78/58 L 98 Nasal Cannula 4 04/01/24 14:00 112 H 16 111/56 L 97 Nasal Cannula 4 04/01/24 13:55 111 H 18 89/59 L 97 Nasal Cannula 4 04/01/24 13:50 112 H 18 131/56 L 95 Nasal Cannula 4 04/01/24 13:50 131/56 L 04/01/24 13:45 109 H 16 119/58 L 98 04/01/24 13:44 98/57 L 04/01/24 13:42 108 H 16 55/40 L 98 04/01/24 13:36 70/45 L 04/01/24 13:36 109 H 18 70/45 L 96 04/01/24 13:30 76/51 L 04/01/24 13:26 99/70 L 04/01/24 13:16 94/33 L 04/01/24 13:11 105 H 18 91/41 L 97 Nasal Cannula 4 04/01/24 13:09 118 H 19 77/45 L 95 Nasal Cannula 4 04/01/24 13:00 113 H 17 83/45 L 98 Nasal Cannula 4 04/01/24 12:55 114 H 20 91/40 L 97 Nasal Cannula 4 04/01/24 12:50 113 H 18 96/67 L 98 Nasal Cannula 4 04/01/24 12:46 116 H 16 121/52 L 98 Nasal Cannula 4 04/01/24 12:40 108 H 18 85/46 L 96 Nasal Cannula 4 04/01/24 12:36 108 H 18 108/49 L 95 Nasal Cannula 4 04/01/24 12:33 102 H 20 106/89 94 Nasal Cannula 4 04/01/24 12:25 108 H 20 94/73 L 97 Nasal Cannula 4 04/01/24 12:21 108 H 24 95/48 L 98 Nasal Cannula 4 04/01/24 12:15 104 H 18 83/48 L 98 Nasal Cannula 4 04/01/24 12:10 117 H 18 117/73 96 Nasal Cannula 4 04/01/24 12:03 123 H 20 70/55 L 97 Nasal Cannula 4 04/01/24 12:00 39.6 C H 04/01/24 11:56 118 H 16 124/95 96 Nasal Cannula 4 04/01/24 11:54 112 H 04/01/24 11:48 114 H 24 92/59 L 96 Nasal Cannula 4 04/01/24 11:45 114 H 22 66/45 L 92 Nasal Cannula 4 04/01/24 11:43 118 H 16 115/65 96 Nasal Cannula 4 Lab & Micro Results (Past 24 Hours) RBC 4.32 M/uL (4.70-6.10) L 04/01/24 WBC 12.39 K/ul (4.8-10.8) H 04/01/24 Hgb 13.6 g/dl (14.0-18.0) L 04/01/24 Hct 42.4 % (42.0-52.0) 04/01/24 MCV 98.1 fL (80.0-100.0) 04/01/24 MCH 31.5 pg (25.0-34.0) 04/01/24 MCHC 32.1 g/dL (32.0-36.0) 04/01/24 RDW Standard Deviation 59.5 fL (36.4-46.3) H 04/01/24 RDW Coefficient of Variation 16.3 % (11.5-14.5) H 04/01/24 Plt Count 306 K/uL (130-400) 04/01/24 MPV 10.3 fL (9.4-12.4) 04/01/24 Neutrophils (%) (Auto) 41.5 % 04/01/24 Lymphocytes (%) (Auto) 40.7 % 04/01/24 Monocytes # (Auto) 1.84 K/uL (0.11-0.59) H 04/01/24 Eosinophils # (Auto) 0.25 K/uL (0.00-0.50) 04/01/24 Immature Granulocyte % (Auto) 0.3 % 04/01/24 Neutrophils # (Auto) 5.15 K/uL (1.40-6.50) 04/01/24 Lymphocytes # (Auto) 5.04 K/uL (1.20-3.40) H 04/01/24 Monocytes # (Auto) 1.84 K/uL (0.11-0.59) H 04/01/24 Eosinophils # (Auto) 0.25 K/uL (0.00-0.50) 04/01/24 Basophils # (Auto) 0.07 K/uL (0.00-0.20) 04/01/24 Immature Granulocyte # (Auto) 0.04 K/uL (0.01-0.20) 4 Polychromasia 1+ 04/01/24 Tear Drop Cells 1+ 04/01/24 Na 139 mmol/L (136-145) 04/01/24 K 3.4 mmol/L (3.5-5.1) L 04/01/24 Cl 99 mmol/L (98-107) 04/01/24 CO2 30 mmol/L (21-32) 04/01/24 Anion Gap 10 (3-11) 04/01/24 BUN 28 mg/dl (6-23) H 04/01/24 Creatinine 2.21 mg/dl (0.6-1.4) H 04/01/24 BUN/Creatinine Ratio 12.7 (10-20) 04/01/24 Glu 100 mg/dl (70-99(Fasting)) H 04/01/24 Ca 11.0 mg/dl (8.6-10.3) H 04/01/24 Total Bilirubin 1.6 mg/dl (0.2-1.0) H 04/01/24 Direct Bilirubin 0.6 mg/dl (0-0.2) H 04/01/24 AST 99 U/L (13-39) H 04/01/24 ALT 24 U/L (7-52) 04/01/24 Alkaline Phosphatase 94 U/L (34-104) 04/01/24 TP 5.8 gm/dl (6.0-8.3) L 04/01/24 Albumin 3.0 gm/dl (3.4-5.0) L 04/01/24 Mg 1.6 mg/dl (1.7-2.4) L 04/01/24 11:37 Calcium Level 11.0 mg/dl (8.6-10.3) H 04/01/24 11:37 Prothromb Time International Ratio 1.7 (0.9-1.1) H 04/01/24 11 :37 Venous Blood pH 7.40 (7.36-7.41) 04/01/24 12:07 Venous Blood Partial Pressure CO2 54 mmHg (38-50) H 04/01/24 12 :07 Venous Blood Partial Pressure O2 < 20 mmHg 04/01/24 12:07 Venous Blood HCO3 33 mmol/L 04/01/24 12:07 Venous Blood Base Excess 7.0 mEq/L 04/01/24 12:07 Venous Blood Oxygen Saturation < 60.0 % 04/01/24 12:07 Diagnostic Findings (Past 24 Hours) Chest X-Ray 04/01/24 11:34 XR chest 1V portable CLINICAL HISTORY: Sepsis COMPARISON STUDY: Chest CT January 27, 2024. Chest radiograph March 24, 2024. FINDINGS: Right internal jugular [id number] is partially imaged. Position appears unchanged. Bilateral shoulder arthroplasties are incidentally noted. Cardiomegaly is unchanged. Mediastinal contours are stable. There is no evidence for pulmonary edema or pneumonia. There is no pneumothorax or pleural effusion. IMPRESSION: No acute cardiopulmonary findings. No change in appearance of the chest. ACT 112: Negative or not required by law. Electronically signed by: Nino Oakes M.D. 04/01/2024 12:38 PM Abdomen/Pelvis CT 04/01/24 13:46 CT chest diagnostic wo con, CT abd pelvis wo con CLINICAL HISTORY: 78 years-old Male with critically ill, falls w warfain, L chest wall evelin. Acute chest and abdominal trauma status post fall TECHNIQUE: Multiaxial CT images of the chest, abdomen and pelvis were performed without contrast. A dose lowering technique was utilized adhering to the principles of ALARA. COMPARISON: , CT abdomen and pelvis 03/24/2024, chest CT January 27, 2024 FINDINGS: CT CHEST: Unremarkable thyroid. Right IJ catheter distal tip terminates within the mid SVC. Mild cardiomegaly with advanced coronary artery calcifications. Unchanged 1.8 x 1.2 cm subpleural nodule adjacent to the right upper lung on image 116 series 8. Partially calcified mediastinal lymph nodes measure up to 1.4 cm. Fusiform dilation of the ascending thoracic aorta, 4.5 x 4.5 cm. Dilation of the pulmonary arteries suggestive of pulmonary arterial hypertension. Small pleural effusions. Intralobular septal thickening. No pneumothorax. Groundglass densities with bibasilar consolidation and mucous plugging. Central airways appear patent. Subacute to chronic left pectoralis intramuscular hemato ma redemonstrated, decreased in size from prior. This measures up to approximately 6 x a 19 cm, previously 11 x 18 cm. Bilateral shoulder arthroplasties. No acute fracture identified. ABDOMEN/PELVIS: No pneumoperitoneum. The unenhanced spleen, pancreas and adrenal glands are unremarkable. Unremarkable gallbladder. Severe hepatic steatosis. Bilateral renal sinuses with perinephric stranding redemonstrated. There is mild thickening of the collecting systems and ureters. Decompressed bladder with See catheter in place. Atherosclerosis of the aorta. Trace free pelvic fluid. No lymphadenopathy. No bowel obstruction or bowel wall thickening. Colonic diverticulosis. Moderate colonic fecal retention. Normal appendix. Tiny fat filled umbilical hernia. Degenerative changes of the shoulders and spine. Degenerative changes of the lumbar spine. No acute fracture identified. IMPRESSION: 1. Decreased size of the subacute to chronic left chest wall hematoma. 2. No acute posttraumatic intrathoracic or intra-abdominal abnormality identified. 3. No acute fracture. 4. Cardiomegaly with interstitial pulmonary edema and trace pleural effusions. 5. Mild bibasilar consolidation may represent atelectasis versus pneumonitis. 6. No bowel obstruction or bowel wall thickening. 7. Body wall edema with trace ascites. 8. Bilat. perinephric stranding with urothelial thickening of the renal collecting systems redemonstrated. Correlate with urinalysis. ACT 112: Negative or not required by law. Electronically signed by: Dominick George M.D. 04/01/2024 3:[address] 04/01/24 13:46 CT cervical spine wo con CLINICAL HISTORY: unwitness fall x3 on warfain, sepsis, lethargy TECHNIQUE: Multidetector row helical CT of the cervical spine was performed without administration of intravenous contrast. Coronal and sagittal reformations were obtained. Automated dose lowering techniques and/or adjustment according to patient size were utilized for this exam. Comparison: None available at the time of this dictation. FINDINGS: No acute fractures or subluxations are identified. Degenerative changes are seen in the visualized spine. The alignment is normal. Biapical scarring is seen in the lungs. IMPRESSION: Degenerative changes without evidence of acute bony injury. ACT 112: Negative or not required by law. Electronically signed by: Robert Gerber M.D. 04/01/2024 2:[address] 04/01/24 13:46 CT OF THE HEAD WITHOUT CONTRAST CLINICAL HISTORY: unwitnessed fall x3 on warfarin, sepsis, lethargy COMPARISON STUDY: MRI brain January 21, 2024. Head CT February 24, 2024. TECHNIQUE: Helical axial images of the head were obtained without IV contrast. Automated exposure control was utilized for the study. A dose lowering techni que was utilized adhering to the principles of ALARA. FINDINGS: No acute intracranial hemorrhage, midline shift or mass effect is present. The ventricular system is unremarkable. The basal cisterns are patent. No extra-axial collections are present. There are no findings to suggest acute dural sinus thrombosis or acute territorial infarct. Bilateral basal ganglia calcification is incidentally noted. There are no calvarial fractures. Fluid density within the clivus is unchanged. Associated bony erosion appears unchanged from earlier exams. IMPRESSION: No acute intracranial findings. No change in appearance of the brain. ACT 112: Negative or not required by law. Electronically signed by: Nino Oakes M.D. 04/01/2024 2:[address] 04/01/24 13:59 CT femur LT wo con CLINICAL HISTORY: sepsis, purulent LLE infection COMPARISON STUDY: CT of the abdomen and pelvis March 24, 2024. Left knee rad iographs May 13, 2011. TECHNIQUE: Axial images of the left thigh and femur were obtained without IV contrast. Sagittal and coronal reconstructions were viewed. Automated exposure control was utilized for the study. A dose lowering technique was utilized adhering to the principles of ALARA. FINDINGS: There are no fractures within the left femur. No areas of bony erosion are identified. There is no soft tissue gas within the left thigh. Visualized portions of the left knee arthroplasty are intact. There is no lucency or fracture adjacent to the femoral component of the left knee arthroplasty. No fluid collections within the left thigh are present. There is mild subcutaneous edema of the lateral left thigh with skin thickening. No muscular abnormality of the left thigh is identified. IMPRESSION: 1. No fractures within the left femur. No evidence for acute osteomyelitis. No fracture or lucency adjacent to the femoral component of the left knee arthroplasty. 2. Mild subcutaneous edema of the lateral left thigh. No associated fluid collections. No soft tissue gas. ACT 112: Negative or not required by law. Electronically signed by: Nino Oakes M.D. 04/01/2024 2:[address] 04/01/24 14:06 CT chest diagnostic wo con, CT abd pelvis wo con CLINICAL HISTORY: 78 years-old Male with critically ill, falls w warfain, L chest wall evelin. Acute chest and abdominal trauma status post fall TECHNIQUE: Multiaxial CT images of the chest, abdomen and pelvis were performed without contrast. A dose lowering technique was utilized adhering to the principles of ALARA. COMPARISON: , CT abdomen and pelvis 03/24/2024, chest CT January 27, 2024 FINDINGS: CT CHEST: Unremarkable thyroid. Right IJ catheter distal tip terminates within the mid SVC. Mild cardiomegaly with advanced coronary artery calcifications. Unchanged 1.8 x 1.2 cm subpleural nodule adjacent to the right upper lung on image 116 series 8. Partially calcified mediastinal lymph nodes measure up to 1.4 cm. Fusiform dilation of the ascending thoracic aorta, 4.5 x 4.5 cm. Dilation of the pulmonary arteries suggestive of pulmonary arterial hypertension. Small pleural effusions. Intralobular septal thickening. No pneumothorax. Groundglass densities with bibasilar consolidation and mucous plugging. Central airways appear patent. Subacute to chronic left pectoralis intramuscular hematoma redemonstrated, decreased in size from prior. This measures up to approximately 6 x a 19 cm, previously 11 x 18 cm. Bilateral shoulder arthroplasties. No acute fracture identified. ABDOMEN/PELVIS: No pneumoperitoneum. The unenhanced spleen, pancreas and adrenal glands are unremarkable. Unremarkable gallbladder. Severe hepatic steatosis. Bilateral renal sinuses with perinephric stranding redemonstrated. There is mild thickening of the collecting systems and ureters. Decompressed bladder with See catheter in place. Atherosclerosis of the aorta. Trace free pelvic fluid. No lymphadenopathy. No bowel obstruction or bowel wall thickening. Colonic diverticulosis. Moderate colonic fecal retention. Normal appendix. Tiny fat filled umbilical hernia. Degenerative changes of the shoulders and spine. Degenerative changes of the lumbar spine. No acute fracture identified. IMPRESSION: 1. Decreased size of the subacute to chronic left chest wall hematoma. 2. No acute posttraumatic intrathoracic or intra-abdominal abnormality identified. 3. No acute fracture. 4. Cardiomegaly with interstitial pulmonary edema and trace pleural effusions. 5. Mild bibasilar consolidation may represent atelectasis versus pneumonitis. 6. No bowel obstruction or bowel wall thickening. 7. Body wall edema with trace ascites. 8. Bilat. perinephric stranding with urothelial thickening of the renal collecting systems redemonstrated. Correlate with urinalysis. ACT 112: Negative or not required by law. Electronically signed by: Dominick George M.D. 04/01/2024 3:20 PM I & O Totals 24 Hours 03/31/24 04/01/24 04/02/24 06:59 06:59 06:59 Intake Total 3282.657 / 3282.657 Balance 3282.657 / 3282.657 Cumulative 04/01/24 11:18 thru 04/01/24 15:03 Intake Total 3282.657 Balance 3282.657 RT Ventilator Mngmt (Last Documented) Ventilator Ordered Settings Respiratory Rate 18 04/01/24 15:06 Ventilator - PT Measurements Respiratory Rate 18 Coding Level of Care Code 54532 CRITICAL CARE 1ST 30-74M Diagnoses Severe sepsis with septic shock A41.9; R65.21 Renal failure (ARF), acute on chronic N17.9; N18.9 Melanoma C43.9 Subtherapeutic international normalized ratio (INR) R79.1 Physical deconditioning R53.81
[2024-04-01] MEDS ORDERED: ACETAMINOPHEN 1,000 MG/100 ML VIAL IV PRN (15:42)
[2024-04-01] MEDS: PLASMA-LYTE A 1,000 ML IV SCH (16:23)
[2024-04-01] MEDS: ICU Protocol for HYPERglycemia SCH (16:29)
--- NOTE | 2024-04-01 16:38 | CT Scan Report ---
CT tib/fib LT wo con CLINICAL HISTORY: r/o deep tissue infection LLE TECHNIQUE: Multidetector row helical CT of the left tibia and fibula was performed without intravenou s contrast. Coronal and sagittal reformations were obtained. Automated dose lowering techniques and/o r adjustment according to patient size were utilized for this examination. CT DOSE: 1276.95 mGy.cm Comparison: Comparison is made to femur CT 04/01/2024 FINDINGS: The osseous structures are without fracture or dislocation. The joint spaces are maintained. No joint effusion is seen. Soft tissue swelling and skin thickening are seen without drainable fluid collect ion. IMPRESSION: Findings compatible with cellulitis without osteomyelitis or drainable fluid collection. ACT 112: Negative or not required by law. Electronically signed by: Robert Gerber M.D. 04/01/2024 4:36 PM
--- NOTE | 2024-04-01 17:23 | Electrocardiogram Report ---
Test Reason : Blood Pressure : */* mmHG Vent. Rate : 117 BPM Atrial Rate : 117 BPM P-R Int : 112 ms QRS Dur : 84 ms QT Int : 406 ms P-R-T Axes : * -63 18 degrees QTcB Int : 566 ms Sinus tachycardia Left axis deviation Low voltage QRS Inferior infarct , age undetermined Anterior infarct (cited on or before 24-Mar-2024) Prolonged QT Abnormal ECG When compared with ECG of 24-Mar-2024 15:57, Inferior infarct is now Present T wave inversion no longer evident in Anterior leads Confirmed by Prosper Andersen ([id number]) on 04/01/2024 5:22:28 PM Referred By: Confirmed By: Prosper Andersen
--- OUTSIDE RECORDS SUMMARY | 2024-04-01 17:33 | External Medical Summary | Continuity of Care Document ---
Author Name Unknown Organization [address] Address [address] [place] [id number] Care Team Providers Care Oil Well Shooter Name Role Phone ShashankStef casanova Primary Care Physician [phone] [id number] Date(s): 03/29/24 - 03/29/24 [place] [address] [email or web address] [address] [address] [phone] Encounter Diagnosis Chronic kidney disease, stage 3(Discharge Diagnosis) - 03/29/24 Nausea(Discharge Diagnosis) - 03/29/24 Abrasion of leg(Discharge Diagnosis) - 03/29/24 Lower extremity edema(Discharge Diagnosis) - 03/29/24 Hematoma(Discharge Diagnosis) - 03/29/24 Physical deconditioning(Discharge Diagnosis) - 03/29/24 Discharge Disposition: Home or Self Care Attending Physician: JAMARI Buchanan Tara Allergies, Adverse Reactions, Alerts Substance Criticality Severity Reaction Reaction Severity Status simvastatin 1 - muscle and joint pain Active TEGretol rash Active gabapentin rash Active OxyContin rash Active oxyCODONE rash Active traMADol rash Active HYDROcodone rash Active 1muscle and joint pain Assessment and Plan Extracted from: Title:follow up Author:JAMARI Buchanan Tara Date: 1.Chronic kidney disease, stage 3 Acute/Chronic: chronic Goal:Resolution/ control Status:stable/controlled Data: records/pt report Plan: Contd with fluids (water and propel water). BP is slightly low which is most likely due to dehydration. Follow up on monday.Will check cmp, mag on monday. 2.Nausea Acute/Chronic: chronic Goal:Resolution/ control Status:stable/controlled Data: records/pt report Plan: Will refill reglan.May need to refer to GI to see why he contd to have ongoing nausea.Contd with 3 meals and supplement 2 times a day. Will check cmp, mg on monday. 3.Abrasion of leg Acute/Chronic: acute Goal:Resolution/ control Status:ongoing Data: records/pt report Plan: Wound cleansed with NS. adapticapplied with telfa andheld in place with fish net. Gave pt another dressing to apply on monday. Will also treat for cellulitis with keflex. Follow up on monday. 4.Lower extremity edema Acute/Chronic: chronic Goal:Resolution/ control Status:stable/controlled Data: records/pt report Plan: Chronic venous insufficiency.New abrasion and cellulitis. See #4. Edema is stable. Follow up monday. 5.Hematoma Acute/Chronic: chronic Goal:Resolution/ control Status:stable/controlled Data: records/pt report Plan: Contd to reabsorb. 6.Physical deconditioning Acute/Chronic: chronic Goal:Resolution/ control Status:stable/controlled Data: records/pt report Plan: Contd with PT. His albumin is low. Contd with high protein meals and snacks. time spent reviewing chart, face to face visit, ordersand documentation: 56 min Immunizations Given and Recorded Vaccine Date [...] bid, Disp# 60 tab, Refills: 11, Pharmacy: [id number] Start Date: 12/11/23 Status: Ordered Diflucan 100 mg oral tablet Start: 03/29/24 5:01:00 PM EDT, 1 tab, PO, Daily, Disp# 7 tab, X 7 day, Stop: 04/05/24 5:01:00 PM EDT, Pharmacy: [id number] Start Date: 03/29/24 Stop Date: 04/05/24 Status: Ordered ferrous sulfate 325 mg (65 mg elemental iron) oral delayed release tablet Start: 03/13/24 6:31:00 PM EDT, See Instructions, Disp# 60 tab, Refills: 0, TAKE 1 TABLET BY MOUTH TWICE A DAY WITH MEALS, Pharmacy: [id number] Start Date: 03/13/24 Status: Ordered furosemide Start: 01/11/24 9:05:00 AM EDT Start Date: 01/11/24 Status: Ordered Keflex 500 mg oral capsule Start: 03/29/24 5:02:00 PM EDT, 1 cap, PO, q6h, Disp# 28 cap, X 7 day, Stop: 04/05/24 5:02:00 PM EDT, Pharmacy: [id number] Start Date: 03/29/24 Stop Date: 04/05/24 Status: Ordered metoclopramide 5 mg oral tablet Start: 03/29/24 5:03:00 PM EDT, 1 tab, PO, bid, Disp# 42 tab, PRN: nausea, Pharmacy: [id number] Start Date: 03/29/24 Stop Date: 04/19/24 Status: Ordered metoprolol succinate 50 mg oral tablet, extended release Start: 03/18/24 4:23:00 PM EDT, 1 tab, PO, Daily, Disp# 30 tab, Refills: 0, Pharmacy: [id number] Start Date: 03/18/24 Status: Ordered Metoprolol Succinate ER Oral Tablet Extended Release 24 Hour 50 MG Start: 03/13/24 6:19:00 PM EDT, Metoprolol Succinate ER Oral Tablet Extended Release 24 Hour 50 MG, 1 tab, PO, qAM, Disp# 30 tab, Refills: 0, Pharmacy [id number] Start Date: 03/13/24 Status: Ordered midodrine 10 mg oral tablet Start: 03/06/24 2:39:00 PM EDT, 90 tab, 0 Refill(s) Start Date: 03/06/24 Status: Ordered MiraLax oral powder for reconstitution Start: 03/14/23 9:19:00 AM EDT, 17 g =, PO, Daily, PRN: constipation Start Date: 03/14/23 Status: Ordered pravastatin 20 mg oral tablet Start: 10/31/23 7:06:00 PM EDT, 1 tab, PO, Daily, Disp# 90 tab, Refills: 3, Pharmacy: [id number] Start Date: 10/31/23 Status: Ordered pregabalin 50 mg oral capsule Start: 03/06/24 3:28:00 PM EDT, 1 cap, PO, Daily, Disp# 30 cap, Pharmacy: [id number] Start Date: 03/06/24 Stop Date: 04/05/24 Status: Ordered Senokot Extra 8.6 mg oral tablet Start: 03/18/24 4:32:00 PM EDT, 1 tab, PO, bid, Disp# 60 tab, Refills: 0, Pharmacy: [id number] Start Date: 03/18/24 Status: Ordered Systane Start: 02/13/23 4:17:00 PM EDT, as needed dry eyes Start Date: 02/13/23 Status: Ordered Tylenol 500 mg oral tablet Start: 03/30/23 4:02:00 PM EDT, 2 tab, PO, tid Start Date: 03/30/23 Status: Ordered warfarin 5 mg oral tablet Start: 02/16/24 10:07:00 AM EDT Start Date: 02/16/24 Status: Ordered Zofran 4 mg oral tablet Start: 03/06/24 3:29:00 PM EDT, 1 tab, PO, bid, Disp# 10 tab, PRN: as needed for nausea/vomiting, Pharmacy: [id number] Start Date: 03/06/24 Stop Date: 03/11/24 Status: Ordered Mental Status 03/29/24 Barriers to Learning one year None evide nt Mandatory Health Literacy Documentation Yes Health Literacy Communication Barriers N ever Primary Language Swiss Problem List Condition Confirmation Course Effective Dates [...] ascendign aortic aneurysm. sees Dr. Ramirez in [facility] (cardiology) [address] Dr[address] Reddy 13:15 EDT - [...] Dates Health Status Clinical Service Informant Nausea Discharge Diagnosis 03/29/24 Non-Specified Hematoma Discharge Diagnosis 03/29/24 Non-Specified Chronic kidney disease, stage 3 Discharge Diagnosis 03/29/24 Non-Specified Abrasion of leg Discharge Diagnosis 03/29/24 Non-Specified Lower extremity edema Discharge Diagnosis 03/29/24 Non-Specified Physical deconditioning Discharge Diagnosis 03/29/24 Non-Specified Procedures Procedure Date Related Diagnosis Body Site Status Colonoscopy 1 12/21/22 Completed Arthroplasty-left side-left total shoulder arthroplasty, distal clavicle excision, biceps tenodesis with transfer to conjoined tendon, increased difficulty obesity BMI 40.2 2 09/07/22 Completed Chest x-ray 3 08/25/22 Completed MRI of brain 4 08/17/22 Completed Shave biopsy and cauterization of skin 06/16/22 Completed Knee replacement 5 2022 Comple roro Colonoscopy 6, 7 12/09/[address] chest PE 8 07/09/[address] 9 07/09/20 Completed CXR - Chest X-ray 10 06/30/20 Comp leted 4 teeth [id number] 07/[address] of chest with [...] diverticulosis without evidence of acute diverticulitis 14[facility]. [facility] left trigeminal neuralgia 41.8 minutes [...] the fat is likely incidental rather than internet sales representative of the lesion, though correlation with [...] Most recent to oldest [Reference Range]: 1 2 Patient Weight 106.1 kg (03/29/24 3:59 PM) Temperature [36.5-37.9 DegC] 37 DegC (03/29/24 5:08 PM) Heart Rate 77 bpm (03/29/24 4:20 PM) 80 bpm (03/29/24 3:59 PM) Respiratory Rate 18 br/min (03/29/24 3:59 PM) Blood Pressure 98/46mmHg (03/29/24 3:59 PM) Social History Social History Type Response Smoking [...] Active Unkn own FCM Outpt Note * JAMARI Buchanan Tara: PERFORM Event Display: FCM Outpt Note Authored Date: [id number] Chief Complaint f/u History of Present Illness Patient is here today for follow-up. He was seen in the emergency room 5 days agofor nausea. He did undergo imaging with a chest x-ray that did not show any acute process and a CT scan that didnot show any acute process. He had laboratory studies done which did show a low potassium at 3.2 and a low magnesium at 1.6creatinine 1.52 which is his baseline. They did give him some IV fluids as they do not did not feel that he was slightly dehydrated. He was also given a prescription forReglan for nausea. The patient's states that the Reglan hashelped he was able to eat yesterday and todayand has had no nausea since Monday. Having BM.He did have PT today which she was able to walk around the house butwhen they needed to get him downthe steps into the basement to get to the truck he was weak. He isdrinking water. He had been instructed by another provider to useIV liquid buttheanticoag clinic asked him not to use this. So he has just been dr gillian main alsotakingboost1-2 times a day in addition to his meals. His does state that he sleeps a lot during the day and then he is up at night. He denies CP, SOB. He denies that he is depressed but is not happy that he is not able to get in his truck and go. Hematoma of left chest still present but not painful and is less firm. No abnlbleeding. Review of Systems Constitutional: No fever, chills, sweats EENT:No vision change, eye pain, rhinorrhea, sinus pain, epistaxis, dysphagia, change in hearing,tinnitus, vertigo, oral ulcers or lesions. Pulmonary: No shortness of breath, dyspnea with exertion, cough, hemoptysis, wheezing, chest pain. Cardiovascular: No chest pain, palpitations, syncope, edema, cyanosis, claudication, orthopnea. GI: see HPI : No dysuria, frequency, urgency, urinary incontinence, hematuria, nocturia. Neurologic: No headache, lightheadedness, dizziness Psychiatric: No depression, anxiety Endocrine: No weight change, heat or cold intolerance, tremor, insomnia, polyuria, polydipsia, polyphagia, abnormal hair growth, change in nails Physical Exam Vitals & Measurements T:37C HR:77(Monitored) RR:18 BP:98/46 SpO2:96% Oxygen Flow:2(L/Min) Oxygen Therapy:Nasal cannula WT:106.100kg(Dosing) WT:106.1kg PHQ2 Data(Data Documented on:03/29/2024 15:59) Emotional health assessment NEGATIVE head- normocephalic eyes- PERRLA , conjunctiva clear, sclera white, anicteric, Pulmonary- chest expansion symmetric, CTA (clear to auscultation), eupnea, no adventitious sounds (rales, crackles, wheezes) CV (cardiovascular)- RRR no m/r/g (systolic ejection murmur, rubs, gallops), good peripheral perfusion extremities -bilateral lower extremity edema. Erythema of leftshinand increased temperature. Areaof [id number] shinthe skin has sloughed off. skin-left chest hematoma is soft and non tenders nails- no clubbing or deformities w good cap refill Neuro:Alert, Oriented Psy:no homicidal or suicidal ideations. Assessment/Plan 1.Chronic kidney disease, stage 3 Acute/Chronic: chronic Goal:Resolution/ control Status:stable/controlled Data: records/pt report Plan: Contd with fluids (water and propel water). BP is slightly low which is most likely due to dehydration. Follow up on monday.Will check cmp, mag on monday. 2.Nausea Acute/Chronic: chronic Goal:Resolution/ control Status:stable/controlled Data: records/pt report Plan: Will refill reglan.May need to refer to GI to see why he contd to have ongoing nausea.Contd with 3 meals and supplement 2 times a day. Will check cmp, mg on monday. 3.Abrasion of leg Acute/Chronic: acute Goal:Resolution/ control Status:ongoing Data: records/pt report Plan: Wound cleansed with NS. adapticapplied with telfa andheld in place with fish net. Gave ptwife another dressing to apply on monday. Will also treat for cellulitis with keflex. Follow up on monday. 4.Lower extremity edema Acute/Chronic: chronic Goal:Resolution/ control Status:stable/controlled Data: records/pt report Plan:Chronic venous insufficiency.New abrasion and cellulitis. See #4. Edema is stable. Follow up monday. 5.Hematoma Acute/Chronic: chronic Goal:Resolution/ control Status:stable/controlled Data: records/pt report Plan:Contd to reabsorb. 6.Physical deconditioning Acute/Chronic: chronic Goal:Resolution/ control Status:stable/controlled Data: records/pt report Plan:Contd with PT. His albumin is low. Contd with high protein meals and snacks. time spent reviewing chart, face to face visit, ordersand documentation: 56 min Problem List/Past Medical History Ongoing AA (aortic aneurysm) Anti-cardiolipin antibody positive Atrial fibrillation Chronic kidney disease, stage 3 Chronic low back pain Chronic pulmonary embolism Fatty liver Impaired fasting glucose Lesion of lung Malignant melanoma, stage IIIC MIXED HYPERLIPIDEMIA CRISTIANA (obstructive sleep apnea) Trigeminal neuralgia Vitamin D deficiency Weight disorder Resolved Chicken pox Colonoscopy Constipation Elevated LFTs Hypertensive disorder Hypertensive kidney disease with stage 3 chronic kidney disease Left facial pain Melanoma Morbid obesity (disorder) Nasal mass Pre-op exam RENAL CALCULUS Thrombocytopenic disorder (disorder) Trigeminal Neuralgia Procedure/Surgical History Colonoscopy| Service Date: 12/21/2022rthroplasty-left side-left [...] 07/09/2020XR - Chest X-ray| Service Date: teeth [id number]| Service Date: 07/2019CT of chest with contrast| [...] mg oral tablet), 1 tab, PO, bid cephalexin(Keflex 500 mg oral capsule), 500 mg= 1 cap, PO, q6h ferrous sulfate(ferrous sulfate 325 mg (65 mg elemental iron) oral delayed release tablet), See Instructions fluconazole(Diflucan 100 mg oral tablet), 100 mg= 1 tab, PO, Daily furosemide metoclopramide(metoclopramide 5 mg oral tablet), 5 mg= 1 tab, PO, bid, PRN metoprolol(metoprolol succinate 50 mg oral tablet, extended release), 50 mg= 1 tab, PO, Daily midodrine(midodrine 10 mg oral tablet) ocular lubricant(Systane) ondansetron(Zofran 4 mg oral tablet), 4 mg= 1 tab, PO, bid, PRN polyethylene glycol 3350(MiraLax oral powder for reconstitution), 17 g, PO, Daily, PRN pravastatin(pravastatin 20 mg oral tablet), 1 tab, PO, Daily pregabalin(pregabalin 50 mg oral capsule), 50 mg= 1 cap, PO, Daily senna(Senokot Extra 8.6 mg oral tablet), 8.6 mg= 1 tab, PO, bid unlisted medication(Metoprolol Succinate ER Oral Tablet Extended Release 24 Hour 50 MG), 1 tab, PO,qAM warfarin(warfarin 5 mg oral tablet) Allergies HYDROcodonerash OxyContinrash TEGretolrash gabapentinrash oxyCODONErash simvastatin- [...] due12/03/23and every 1year Due Adult COVID-19 Vaccination due03/29/24Unknown Frequency Adult Social Determinants of Health Screening due03/29/24Unknown Frequency Shingles Vaccine due03/29/24One-time only Satisfied(in the past 1 year) Satisfied Adult Influenza Vaccine on04/26/23.Satisfied by SHA Be Heather Body Mass Index on03/06/24.Satisfied by SHA Harkins Kirsten Electronic Signature on File Electronically Reviewed/Signed by: JAMARI Jackson Author Signature Dt/Tm:03/29/2024 05:16 PM Department of Family Medicine TB Patient Care team information Care Team Personnel Name: JAMARI Buchanan Tara Position: Nurse Pract - Family Med Member Role: Lifetime Relationship Address: [address] [place] [phone] [place] Name: MD Encarnacion Juan Position: Physician - Family Med Member Role: Primary Care Provider Address: [address] [place] [id number] [place] Name: Taty Vance Paula Position: Pharmacist Member Role: Pharmacy - Lifetime Address: [address] [address] Name: Taty Gomes Brittani Position: Pharmacist Member Role: Pharmacy - Lifetime Care Team Related Persons Name: HECTOR HADDAD"
[2024-04-01] MEDS: HYDROCORTISONE SOD 100 MG in SYRINGE 0 ML IV STA (19:35)
[2024-04-01] MEDS: PANTOprazole 40 MG/10 ML SYR IV SCH (20:12)
[2024-04-01 22:27] LABS: C Reactive Protein 3.68 mg/dl (0-0.5)
[2024-04-01] MEDS: HYDROCORTISONE SOD 50 MG in SYRINGE 0 ML IV SCH (23:30)
[2024-04-01] MEDS: CEFEPIME 2000MG 2,000 MG/20 ML SYR IV SCH (23:30)
[2024-04-01] MEDS: VANCOMYCIN 750 MG in D5W 250mL (Use w/ Shortage) IV SCH (23:31)
[2024-04-02] MEDS ORDERED: VANCOMYCIN HCL 1,500 MG in SODIUM CHLORIDE 0.9% 500 ML IV SCH (02:45)
[2024-04-02 04:46] LABS: Basophils # (auto) 0.02 K/uL (0.00-0.20); Basophils % (auto) 0.4 %; Eosinophils # (auto) 0.01 K/uL (0.00-0.50); Eosinophils % (auto) 0.2 %; Hematocrit (blood only) 39.7 % (42.0-52.0); Hemoglobin 12.9 g/dl (14.0-18.0); Immature Granulocytes # (auto) 0.01 K/uL (0.01-0.20); Immature Granulocytes % (auto) 0.2 %; Lymphocytes # (auto) 1.11 K/uL (1.20-3.40); Lymphocytes % (auto) 20.1 %; Mean Corpuscular Hemoglobin 31.2 pg (25.0-34.0); Mean Corpuscular Hgb Conc 32.5 g/dL (32.0-36.0); Mean Corpuscular Volume 96.1 fL (80.0-100.0); Mean Platelet Volume 9.9 fL (9.4-12.4); Monocytes # (auto) 0.11 K/uL (0.11-0.59); Neutrophils # (auto) 4.26 K/uL (1.40-6.50); Neutrophils % (auto) 77.1 %; Platelet Count 214 K/uL (130-400); RDW Coefficient of Variation 15.9 % (11.5-14.5); RDW Standard Deviation 57.1 fL (36.4-46.3); Red Blood Count 4.13 M/uL (4.70-6.10); White Blood Count 5.52 K/ul (4.8-10.8)
[2024-04-02 04:56] LABS: BUN Creatinine Ratio 14.1 (10-20); C Reactive Protein 5.61 mg/dl (0-0.5); Calcium 9.9 mg/dl (8.6-10.3); Creatinine Clr Calc Pharmacy 42.6 ml/min; Potassium 3.4 mmol/L (3.5-5.1)
[2024-04-02] MEDS: POTASSIUM CHLORIDE / WTR 10 MEQ/100 ML PLCT IV SCH (05:42)
[2024-04-02 06:14] LABS: Magnesium 1.8 mg/dl (1.7-2.4)
--- NOTE | 2024-04-02 07:34 | Critical Care Progress Note ---
Date of Service April 02, 2024 Assessment & Plan (1) Severe sepsis with septic shock: (2) Renal failure (ARF), acute on chronic: (3) Melanoma: (4) Subtherapeutic international normalized ratio (INR): (5) Physical deconditioning: Plan Impression: 78-year-old male with metastatic melanoma, chronic kidney disease, diastolic dysfunction, and declining physical performance status admitted with altered levels of consciousness found to be in severe sepsis with septic shock. Initial lactate was elevated at 4 now down to below 3. He is been initiated on broad-spectrum antibiotic and has received appropriate crystalloids. Portals of entry would include the skin and soft tissue infections as well as potential sources given the imaging findings. 24-hour events: Patient was admitted to the ICU from the ER due to being on vasopressor agents. He was started on stress dose steroids for relative adrenal insufficiency. His vasopressor requirement has resolved and he is now slightly tachycardic but hemodynamically stable. Recommendations: 1. Neurologic: Encephalopathy: Likely metabolic in etiology. The patient had similar evaluation last month which was quite extensive including imaging LP and EEG as well as neurology consultation. This included treatment with high-dose steroids for presumed ICI related toxicity. Unclear if the patient's mental status never improved to normal as he has had frequent falls at home. Hold on additional workup for now and see if he improves with correction of his metabolic abnormalities. Will initiate physical therapy and Occupational Therapy evaluations. Patient's states that she can no longer care for him at home. Will likely need placement. 2. CV: Severe sepsis with septic shock superimposed on relative adrenal insufficiency. Now off vasopressor agents. Still tachycardic. 3. Pulm: No current active issues. Prior history of PE and on anticoagulation 4. Renal: Acute renal failure superimposed on chronic kidney disease. Improved this morning. 5. GI: No current issues. Okay to advance diet. 6. Endocrine: Glycemic control per protocol. Relative adrenal insufficiency. Continue hydrocortisone 50 mg IV every 6 and Florinef 0.1 mg p.o. daily with plans to taper over the next 5 to 7 days 7. ID: Day #2 cefepime vancomycin. Cultures negative to date. Clinically improved. Continue empiric antibiotics for now with plans to taper at 72 hours based on culture result 8. Heme/Onc: Metastatic melanoma. Not receiving any therapy with no plans to receive additional chemo or immunotherapy in the future. Confirmed DNR/DNI sta tus. May be reasonable to approach hospice if patient fails to improve. Patient's critical care issues have resolved. He appears appropriate to transfer to the floor. Critical care services will sign off and care will be dictated by the primary admitting service. Feel free to contact us with additional questions or concerns Admission and Anticipated Discharge Date Admission Date: April 01, 2024 Subjective Patient seen and examined. EMR reviewed. Discussed with the overnight critical care EMMIE as well as with bedside critical care nurse and on multidisciplinary rounds. The patient is awake this morning. He remains somewhat confused. He does arouse to verbal and tactile stimulus but has some difficulty answering questions. He has been off vasopressor agents. Review of Systems Review of Systems: All systems reviewed & are unremarkable except as noted in Subjective Physical Exam Constitutional: WD/WN, vitals as above + obese; no acute distress Neck: trachea midline, no thyromegaly Respiratory: normal respiratory effort, lungs clear to auscultation Cardiovascular: RRR, no murmur, no edema Gastrointestinal (Abdomen): normal bowel sounds, soft, nontender, no hepatosplenomegaly Skin: no rashes, warm and dry Lymphatic: no cervical lymphadenopathy Results & Data Results & Data Vital Signs (Past 12 Hours) Vital Signs Temp Pulse Pulse Resp BP BP Pulse Ox 04/02/24 06:45 36.3 C L 108 H 11 L 97 04/02/24 06:31 106/65 04/02/24 06:30 36.6 C 101 H 19 122/71 96 04/02/24 06:24 107 H 19 96 04/02/24 06:06 98 H 15 95 04/02/24 06:00 118/63 04/02/24 06:00 118/63 04/02/24 05:45 115/74 04/02/24 05:42 108 H 24 94 04/02/24 05:33 108 H 18 95 04/02/24 05:30 124/69 04/02/24 05:30 124/69 04/02/24 05:27 108 H 17 96 04/02/24 05:06 107 H 19 95 04/02/24 05:00 101/62 04/02/24 04:00 36.6 C 106 H 20 123/87 96 04/02/24 03:00 36.6 C 105 H 26 H 113/71 97 04/02/24 02:45 36.7 C 101 H 102/67 04/02/24 02:15 36.7 C 101 H 86/62 L 04/02/24 02:00 108/63 04/02/24 02:00 36.8 C 107 H 17 108/63 04/02/24 01:30 105 H 15 106/65 95 04/02/24 01:00 36.8 C 106 H 16 122/61 94 04/02/24 00:27 36.8 C 108 H 17 145/67 H 96 04/02/24 00:00 36.9 C 110 H 18 123/65 94 04/02/24 00:00 101 H 04/01/24 23:42 36.9 C 109 H 15 95 04/01/24 23:33 36.9 C 109 H 18 137/62 95 04/01/24 23:15 36.9 C 108 H 17 94 04/01/24 23:00 37.0 C 108 H 18 124/84 96 04/01/24 22:42 37.0 C 106 H 18 95 04/01/24 22:33 37.0 C 104 H 17 132/63 95 04/01/24 22:05 37 C 107 H 18 149/61 H 95 04/01/24 21:45 37.0 C 107 H 18 128/63 94 04/01/24 21:30 37.0 C 105 H 15 128/57 L 94 04/01/24 21:15 37 C 111/50 L 04/01/24 21:04 37 C 101 H 16 108/53 L 93 04/01/24 21:00 37 C 102 H 108/53 L 04/01/24 20:45 37 C 101 H 113/47 L 04/01/24 20:30 37.0 C 101 H 18 107/55 L 94 04/01/24 20:30 107/55 L 04/01/24 20:15 37.0 C 101 H 16 97 04/01/24 20:00 37 C 101 H 16 120/58 L 95 04/01/24 19:45 37 C 100 H 18 122/67 96 O2 Del Method O2 Flow Rate 04/02/24 06:45 04/02/24 06:31 04/02/24 06:30 Nasal Cannula 2 04/02/24 06:24 04/02/24 06:06 04/02/24 06:00 04/02/24 06:00 04/02/24 05:45 04/02/24 05:42 04/02/24 05:33 04/02/24 05:30 04/02/24 05:30 04/02/24 05:27 04/02/24 05:06 04/02/24 05:00 04/02/24 04:00 Nasal Cannula 2 04/02/24 03:00 04/02/24 02:45 04/02/24 02:15 04/02/24 02:00 04/02/24 02:00 04/02/24 01:30 04/02/24 01:00 04/02/24 00:27 04/02/24 00:00 04/02/24 00:00 04/01/24 23:42 04/01/24 23:33 04/01/24 23:15 04/01/24 23:00 04/01/24 22:42 04/01/24 22:33 04/01/24 22:05 Nasal Cannula 2 04/01/24 21:45 04/01/24 21:30 04/01/24 21:15 04/01/24 21:04 Nasal Cannula 2 04/01/24 21:00 04/01/24 20:45 04/01/24 20:30 04/01/24 20:30 04/01/24 20:15 04/01/24 20:00 04/01/24 19:45 Nasal Cannula 2 Critical Care Results & Data Vital Signs (Past 12 Hours) Vital Signs Temp Pulse Pulse Resp BP BP Pulse Ox 04/02/24 06:45 36.3 C L 108 H 11 L 97 04/02/24 06:31 106/65 04/02/24 06:30 36.6 C 101 H 19 122/71 96 04/02/24 06:24 107 H 19 96 04/02/24 06:06 98 H 15 95 04/02/24 06:00 118/63 04/02/24 06:00 118/63 04/02/24 05:45 115/74 04/02/24 05:42 108 H 24 94 04/02/24 05:33 108 H 18 95 04/02/24 05:30 124/69 04/02/24 05:30 124/69 04/02/24 05:27 108 H 17 96 04/02/24 05:06 107 H 19 95 04/02/24 05:00 101/62 04/02/24 04:00 36.6 C 106 H 20 123/87 96 04/02/24 03:00 36.6 C 105 H 26 H 113/71 97 04/02/24 02:45 36.7 C 101 H 102/67 04/02/24 02:15 36.7 C 101 H 86/62 L 04/02/24 02:00 108/63 04/02/24 02:00 36.8 C 107 H 17 108/63 04/02/24 01:30 105 H 15 106/65 95 04/02/24 01:00 36.8 C 106 H 16 122/61 94 04/02/24 00:27 36.8 C 108 H 17 145/67 H 96 04/02/24 00:00 36.9 C 110 H 18 123/65 94 04/02/24 00:00 101 H 04/01/24 23:42 36.9 C 109 H 15 95 04/01/24 23:33 36.9 C 109 H 18 137/62 95 04/01/24 23:15 36.9 C 108 H 17 94 04/01/24 23:00 37.0 C 108 H 18 124/84 96 04/01/24 22:42 37.0 C 106 H 18 95 04/01/24 22:33 37.0 C 104 H 17 132/63 95 04/01/24 22:05 37 C 107 H 18 149/61 H 95 04/01/24 21:45 37.0 C 107 H 18 128/63 94 04/01/24 21:30 37.0 C 105 H 15 128/57 L 94 04/01/24 21:15 37 C 111/50 L 04/01/24 21:04 37 C 101 H 16 108/53 L 93 04/01/24 21:00 37 C 102 H 108/53 L 04/01/24 20:45 37 C 101 H 113/47 L 04/01/24 20:30 37.0 C 101 H 18 107/55 L 94 04/01/24 20:30 107/55 L 04/01/24 20:15 37.0 C 101 H 16 97 04/01/24 20:00 37 C 101 H 16 120/58 L 95 04/01/24 19:45 37 C 100 H 18 122/67 96 O2 Del Method O2 Flow Rate 04/02/24 06:45 04/02/24 06:31 04/02/24 06:30 Nasal Cannula 2 04/02/24 06:24 04/02/24 06:06 04/02/24 06:00 04/02/24 06:00 04/02/24 05:45 04/02/24 05:42 04/02/24 05:33 04/02/24 05:30 04/02/24 05:30 04/02/24 05:27 04/02/24 05:06 04/02/24 05:00 04/02/24 04:00 Nasal Cannula 2 04/02/24 03:00 04/02/24 02:45 04/02/24 02:15 04/02/24 02:00 04/02/24 02:00 04/02/24 01:30 04/02/24 01:00 04/02/24 00:27 04/02/24 00:00 04/02/24 00:00 04/01/24 23:42 04/01/24 23:33 04/01/24 23:15 04/01/24 23:00 04/01/24 22:42 04/01/24 22:33 04/01/24 22:05 Nasal Cannula 2 04/01/24 21:45 04/01/24 21:30 04/01/24 21:15 04/01/24 21:04 Nasal Cannula 2 04/01/24 21:00 04/01/24 20:45 04/01/24 20:30 04/01/24 20:30 04/01/24 20:15 04/01/24 20:00 04/01/24 19:45 Nasal Cannula 2 Lab & Micro Results (Past 24 Hours) RBC 4.13 M/uL (4.70-6.10) L 04/02/24 WBC 5.52 K/ul (4.8-10.8) 04/02/24 Hgb 12.9 g/dl (14.0-18.0) L 04/02/24 Hct 39.7 % (42.0-52.0) L 04/02/24 MCV 96.1 fL (80.0-100.0) 04/02/24 MCH 31.2 pg (25.0-34.0) 04/02/24 MCHC 32.5 g/dL (32.0-36.0) 04/02/24 RDW Standard Deviation 57.1 fL (36.4-46.3) H 04/02/24 RDW Coefficient of Variation 15.9 % (11.5-14.5) H 04/02/24 Plt Count 214 K/uL (130-400) 04/02/24 MPV 9.9 fL (9.4-12.4) 04/02/24 Neutrophils (%) (Auto) 77.1 % 04/02/24 Lymphocytes (%) (Auto) 20.1 % 04/02/24 Monocytes # (Auto) 0.11 K/uL (0.11-0.59) 04/02/24 Eosinophils # (Auto) 0.01 K/uL (0.00-0.50) 04/02/24 Immature Granulocyte % (Auto) 0.2 % 04/02/24 Neutrophils # (Auto) 4.26 K/uL (1.40-6.50) 04/02/24 Lymphocytes # (Auto) 1.11 K/uL (1.20-3.40) L 04/02/24 Monocytes # (Auto) 0.11 K/uL (0.11-0.59) 04/02/24 Eosinophils # (Auto) 0.01 K/uL (0.00-0.50) 04/02/24 Basophils # (Auto) 0.02 K/uL (0.00-0.20) 04/02/24 Immature Granulocyte # (Auto) 0.01 K/uL (0.01-0.20) 4 Polychromasia 1+ 04/01/24 Tear Drop Cells 1+ 04/01/24 Na 138 mmol/L (136-145) 04/02/24 K 3.4 mmol/L (3.5-5.1) L 04/02/24 Cl 101 mmol/L (98-107) 04/02/24 CO2 29 mmol/L (21-32) 04/02/24 Anion Gap 8 (3-11) 04/02/24 BUN 25 mg/dl (6-23) H 04/02/24 Creatinine 1.77 mg/dl (0.6-1.4) H 04/02/24 BUN/Creatinine Ratio 14.1 (10-20) 04/02/24 Glu 165 mg/dl (70-99(Fasting)) H 04/02/24 Ca 9.9 mg/dl (8.6-10.3) 04/02/24 Total Bilirubin 1.6 mg/dl (0.2-1.0) H 04/01/24 Direct Bilirubin 0.6 mg/dl (0-0.2) H 04/01/24 AST 99 U/L (13-39) H 04/01/24 ALT 24 U/L (7-52) 04/01/24 Alkaline Phosphatase 94 U/L (34-104) 04/01/24 TP 5.8 gm/dl (6.0-8.3) L 04/01/24 Albumin 3.0 gm/dl (3.4-5.0) L 04/01/24 Mg 1.8 mg/dl (1.7-2.4) 04/02/24 04:12 Calcium Level 9.9 mg/dl (8.6-10.3) 04/02/24 04:12 Prothromb Time International Ratio 1.7 (0.9-1.1) H 04/01/24 11 :37 Venous Blood pH 7.40 (7.36-7.41) 04/01/24 12:07 Venous Blood Partial Pressure CO2 54 mmHg (38-50) H 04/01/24 12 :07 Venous Blood Partial Pressure O2 < 20 mmHg 04/01/24 12:07 Venous Blood HCO3 33 mmol/L 04/01/24 12:07 Venous Blood Base Excess 7.0 mEq/L 04/01/24 12:07 Venous Blood Oxygen Saturation < 60.0 % 04/01/24 12:07 Diagnostic Findings (Past 24 Hours) Chest X-Ray 04/01/24 11:34 XR chest 1V portable CLINICAL HISTORY: Sepsis COMPARISON STUDY: Chest CT January 27, 2024. Chest radiograph March 24, 2024. FINDINGS: Right internal jugular [id number] is partially imaged. Position appears unchanged. Bilateral shoulder arthroplasties are incidentally noted. Cardiomegaly is unchanged. Mediastinal contours are stable. There is no evidence for pulmonary edema or pneumonia. There is no pneumothorax or pleural effusion. IMPRESSION: No acute cardiopulmonary findings. No change in appearance of the chest. ACT 112: Negative or not required by law. Electronically signed by: Nino Oakes M.D. 04/01/2024 12:38 PM Abdomen/Pelvis CT 04/01/24 13:46 CT chest diagnostic wo con, CT abd pelvis wo con CLINICAL HISTORY: 78 years-old Male with critically ill, falls w warfain, L chest wall evelin. Acute chest and abdominal trauma status post fall TECHNIQUE: Multiaxial CT images of the chest, abdomen and pelvis were performed without contrast. A dose lowering technique was utilized adhering to the principles of ALARA. COMPARISON: , CT abdomen and pelvis 03/24/2024, chest CT January 27, 2024 FINDINGS: CT CHEST: Unremarkable thyroid. Right IJ catheter distal tip terminates within the mid SVC. Mild cardiomegaly with advanced coronary artery calcifications. Unchanged 1.8 x 1.2 cm subpleural nodule adjacent to the right upper lung on image 116 series 8. Partially calcified mediastinal lymph nodes measure up to 1.4 cm. Fusiform dilation of the ascending thoracic aorta, 4.5 x 4.5 cm. Dilation of the pulmonary arteries suggestive of pulmonary arterial hypertension. Small pleural effusions. Intralobular septal thickening. No pneumothorax. Groundglass densities with bibasilar consolidation and mucous plugging. Central airways appear patent. Subacute to chronic left pectoralis intramuscular hematoma redemonstrated, decreased in size from prior. This measures up to approximately 6 x a 19 cm, previously 11 x 18 cm. Bilateral shoulder arthroplasties. No acute fracture identified. ABDOMEN/PELVIS: No pneumoperitoneum. The unenhanced spleen, pancreas and adrenal glands are unremarkable. Unremarkable gallbladder. Severe hepatic steatosis. Bilateral renal sinuses with perinephric stranding redemonstrated. There is mild thickening of the collecting systems and ureters. Decompressed bladder with See catheter in place. Atherosclerosis of the aorta. Trace free pelvic fluid. No lymphadenopathy. No bowel obstruction or bowel wall thickening. Colonic diverticulosis. Moderate colonic fecal retention. Normal appendix. Tiny fat filled umbilical hernia. Degenerative changes of the shoulders and spine. Degenerative changes of the lumbar spine. No acute fracture identified. IMPRESSION: 1. Decreased size of the subacute to chronic left chest wall hematoma. 2. No acute posttraumatic intrathoracic or intra-abdominal abnormality identified. 3. No acute fracture. 4. Cardiomegaly with interstitial pulmonary edema and trace pleural effusions. 5. Mild bibasilar consolidation may represent atelectasis versus pneumonitis. 6. No bowel obstruction or bowel wall thickening. 7. Body wall edema with trace ascites. 8. Bilat. perinephric stranding with urothelial thickening of the renal collecting systems redemonstrated. Correlate with urinalysis. ACT 112: Negative or not required by law. Electronically signed by: Dominick George M.D. 04/01/2024 3:[address] 04/01/24 13:46 CT cervical spine wo con CLINICAL HISTORY: unwitness fall x3 on warfain, sepsis, lethargy TECHNIQUE: Multidetector row helical CT of the cervical spine was performed without administration of intravenous contrast. Coronal and sagittal reformations were obtained. Automated dose lowering techniques and/or adjustment according to patient size were utilized for this exam. Comparison: None available at the time of this dictation. FINDINGS: No acute fractures or subluxations are identified. Degenerative changes are seen in the visualized spine. The alignment is normal. Biapical scarring is seen in the lungs. IMPRESSION: Degenerative changes without evidence of acute bony injury. ACT 112: Negative or not required by law. Electronically signed by: Robert Gerber M.D. 04/01/2024 2:[address] 04/01/24 13:46 CT OF THE HEAD WITHOUT CONTRAST CLINICAL HISTORY: unwitnessed fall x3 on warfarin, sepsis, lethargy COMPARISON STUDY: MRI brain January 21, 2024. Head CT February 24, 2024. TECHNIQUE: Helical axial images of the head were obtained without IV contrast. Automated exposure control was utilized for the study. A dose lowering technique was utilized adhering to the principles of ALARA. FINDINGS: No acute intracranial hemorrhage, midline shift or mass effect is present. The ventricular system is unremarkable. The basal cisterns are patent. No extra-axial collections are present. There are no findings to suggest acute dural sinus thrombosis or acute territorial infarct. Bilateral basal ganglia calcification is incidentally noted. There are no calvarial fractures. Fluid density within the clivus is unchanged. Associated bony erosion appears unchanged from earlier exams. IMPRESSION: No acute intracranial findings. No change in appearance of the brain. ACT 112: Negative or not required by law. Electronically signed by: Nino Oakes M.D. 04/01/2024 2:[address] 04/01/24 13:59 CT femur LT wo con CLINICAL HISTORY: sepsis, purulent LLE infection COMPARISON STUDY: CT of the abdomen and pelvis March 24, 2024. Left knee radiographs May 13, 2011. TECHNIQUE: Axial images of the left thigh and femur were obtained without IV contrast. Sagittal and coronal reconstructions were viewed. Automated exposure control was utilized for the study. A dose lowering technique was utilized adhering to the principles of ALARA. FINDINGS: There are no fractures within the left femur. No areas of bony erosion are identified. There is no soft tissue gas within the left thigh. Visualized portions of the left knee arthroplasty are intact. There is no lucency or fracture adjacent to the femoral component of the left knee arthroplasty. No fluid collections within the left thigh are present. There is mild subcutaneous edema of the lateral left thigh with skin thickening. No muscular abnormality of the left thigh is identified. IMPRESSION: 1. No fractures within the left femur. No evidence for acute osteomyelitis. No fracture or lucency adjacent to the femoral component of the left knee arthroplasty. 2. Mild subcutaneous edema of the lateral left thigh. No associated fluid collections. No soft tissue gas. ACT 112: Negative or not required by law. Electronically signed by: Nino Oakes M.D. 04/01/2024 2:[address] 04/01/24 14:06 CT chest diagnostic wo con, CT abd pelvis wo con CLINICAL HISTORY: 78 years-old Male with critically ill, falls w warfain, L chest wall evelin. Acute chest and abdominal trauma status post fall TECHNIQUE: Multiaxial CT images of the chest, abdomen and pelvis were performed without contrast. A dose lowering technique was utilized adhering to the principles of ALARA. COMPARISON: , CT abdomen and pelvis 03/24/2024, chest CT January 27, 2024 FINDINGS: CT CHEST: Unremarkable thyroid. Right IJ catheter distal tip terminates within the mid SVC. Mild cardiomegaly with advanced coronary artery calcifications. Unchanged 1.8 x 1.2 cm subpleural nodule adjacent to the right upper lung on image 116 series 8. Partially calcified mediastinal lymph nodes measure up to 1.4 cm. Fusiform dilation of the ascending thoracic aorta, 4.5 x 4.5 cm. Dilation of the pulmonary arteries suggestive of pulmonary arterial hypertension. Small pleural effusions. Intralobular septal thickening. No pneumothorax. Groundglass densities with bibasilar consolidation and mucous plugging. Central airways appear patent. Subacute to chronic left pectoralis intramuscular hematom a redemonstrated, decreased in size from prior. This measures up to approximately 6 x a 19 cm, previously 11 x 18 cm. Bilateral shoulder arthroplasties. No acute fracture identified. ABDOMEN/PELVIS: No pneumoperitoneum. The unenhanced spleen, pancreas and adrenal glands are unremarkable. Unremarkable gallbladder. Severe hepatic steatosis. Bilateral renal sinuses with perinephric stranding redemonstrated. There is mild thickening of the collecting systems and ureters. Decompressed bladder with See catheter in place. Atherosclerosis of the aorta. Trace free pelvic fluid. No lymphadenopathy. No bowel obstruction or bowel wall thickening. Colonic diverticulosis. Moderate colonic fecal retention. Normal appendix. Tiny fat filled umbilical hernia. Degenerative changes of the shoulders and spine. Degenerative changes of the lumbar spine. No acute fracture identified. IMPRESSION: 1. Decreased size of the subacute to chronic left chest wall hematoma. 2. No acute posttraumatic intrathoracic or intra-abdominal abnormality identified. 3. No acute fracture. 4. Cardiomegaly with interstitial pulmonary edema and trace pleural effusions. 5. Mild bibasilar consolidation may represent atelectasis versus pneumonitis. 6. No bowel obstruction or bowel wall thickening. 7. Body wall edema with trace ascites. 8. Bilat. perinephric stranding with urothelial thickening of the renal collecting systems redemonstrated. Correlate with urinalysis. ACT 112: Negative or not required by law. Electronically signed by: Dominick George M.D. 04/01/2024 3:[address] 04/01/24 15:04 CT tib/fib LT wo con CLINICAL HISTORY: r/o deep tissue infection LLE TECHNIQUE: Multidetector row helical CT of the left tibia and fibula was performed without intravenous contrast. Coronal and sagittal reformations were obtained. Automated dose lowering techniques and/or adjustment according to patient size were utilized for this examination. CT DOSE: 1276.95 mGy.cm Comparison: Comparison is made to femur CT 04/01/2024 FINDINGS: The osseous structures are without fracture or dislocation. The joint spaces are maintained. No joint effusion is seen. Soft tissue swelling and skin thickening are seen without drainable fluid collection. IMPRESSION: Findings compatible with cellulitis without osteomyelitis or drainable fluid collection. ACT 112: Negative or not required by law. Electronically signed by: Robert Gerber M.D. 04/01/2024 4:36 PM I & O Totals 24 Hours 04/01/24 04/02/24 04/03/24 06:59 06:59 06:59 Intake Total 5799.429 / 5799.429 Output Total 1095 / 1095 Balance 4704.429 / 4704.429 Cumulative 04/01/24 11:18 thru 04/02/24 06:42 Intake Total 5799.429 Output Total 1095 Balance 4704.429 RT Ventilator Mngmt (Last Documented) Ventilator Ordered Settings Respiratory Rate 11 04/02/24 06:45 Ventilator - PT Measurements Respiratory Rate 11 Coding Level of Care Code 78665 SUB INP/OBS CARE 3/50MIN Diagnoses Severe sepsis with septic shock A41.9; R65.21 Renal failure (ARF), acute on chronic N17.9; N18.9 Melanoma C43.9 Subtherapeutic international normalized ratio (INR) R79.1 Physical deconditioning R53.81
[2024-04-02] MEDS: FLUDROCORTISONE ACETATE 0.1 MG TAB PO SCH (09:49)
--- NOTE | 2024-04-02 11:47 | Pharmacy Report ---
Pharmacy PK ABX Note - Date of Service April 02, 2024 - Assessment and Plan Assessment 78 year old M receiving Vancomycin and Cefepime empirically for treatment of sepsis. * Day #2 of antimicrobial therapy. * Leukocytosis improved (12.4k --> 5.5k). SCr improved as well (2.4 --> 1.8). 24-hr Tmax of 39.6oC. Lactate was 3.6, improved with fluids. Procal returned at 0.74. * Blood and urine cultures pending. MRSA swab negative. Respiratory biofire negative. * Recommended transitioning to Ceftriaxone + Daptomycin although not certain that MRSA coverage is necessary. Plan Vancomycin * Loading dose: 2000 mg IV x 1 * Maintenance dose: 750 mg IV every 24 hours * Random level this AM was 19.4 mcg/mL which is predicted to be subtherapeutic with AUC/SOSA of ~380 mg/L.hr. * Therefore, will increase maintenance dose to 1250 mg IV every 24 hours. Regimen is predicted to achieve target AUC/SOSA of 400-600 mg/L.hr * No level will be ordered unless therapy extends beyond 48 hours. Cefepime * 2000 mg IV every 12 hours Pharmacy will continue to follow and will adjust dose/frequency as necessary. Thank you. Pharmacy has transitioned to AUC monitoring for vancomycin. AUC/SOSA is the preferred PK/PD target and is associated with decreased risk of nephrotoxicity compared to traditional trough targets.
[2024-04-02] MEDS: VANCOMYCIN 1,250mg in D5W 250mL (Use w/ NSS Shortage) IV SCH (12:45)
--- NOTE | 2024-04-02 12:46 | Hospitalist Progress Note ---
Date of Service April 02, 2024 Assessment & Plan (1) Sepsis: Plan: Suspected on admission. With hypotension consistent with septic shock transiently requiring pressor support. He is now off pressors. Vancomycin and cefepime have been switched to Rocephin. Await final culture results. CT scan of the lower extremity is negative for abscess (2) Cellulitis of left lower leg: Plan: Chronic underlying stasis dermatitis with recurrent cellulitis. MRSA swab is negative. Vancomycin and cefepime have been switched over to Rocephin. (3) Unwitnessed fall: Plan: Multiple Falls on Warfarin. Coumadin will be discontinued. Supportive care. OT and PT evaluations. Known left chest hematoma from recent fall (4) Melanoma: Plan: Stage III. S/p surgical excision and Keytruda adjuvant therapy. 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 This was treated with steroids and patient returned to 75-80% of his baseline per family, but is gradually declined somewhat since his prior discharge. PET 01/2023 with no evidence of mets. Last CTA/P 03/24/[address] 01/23/2024 without evidence of metastasis (5) Pulmonary embolism: Plan: History of PE 2021. Apparently he has been on Coumadin since that time. Due to his multiple recent falls and left chest hematoma, the Coumadin will be discontinued. (6) Chronic kidney disease, stage 3: Plan: Monitor intake and output. Serial labs Plan To be determined. OT and PT assessments requested. Palliative care evaluation requested. Currently DNR/DNI status Admission and Anticipated Discharge Date Admission Date: April 01, 2024 Subjective Awake and alert but confused. He is off pressor support. IV hydrocortisone has been discontinued orders entered to transfer out of the intensive care unit today, April 02. Cefepime and vancomycin discontinued and switched to Rocephin. Review of Systems 2 Review of Systems: The patient is unable to reliably answer any questions regarding review of systems at this time Physical Exam 2 Physical Exam: General-alert but confused. No fever HEENT-head atraumatic and normocephalic, pupils equal and reactive to light, extraocular muscles intact Neck-no lymphadenopathy or thyromegaly, trachea midline Chest-clear to auscultation. No rales, wheezing or rhonchi Cardiac-regular rate and rhythm, normal S1 and S2 Abdomen-normal bowel sounds, no hepatosplenomegaly Extremities-no cyanosis, clubbing, or edema Neuro-cranial nerves II through XII intact, motor and sensory function within normal limits, strength symmetrical, no focal deficits Psych-awake and alert but confused. Results & Data Results & Data Vital Signs (Past 12 Hours) Vital Signs Temp Pulse Pulse Resp BP BP Pulse Ox 04/02/24 11:27 36.9 C 103 H 18 94 04/02/24 11:20 114/46 L 04/02/24 10:45 107/49 L 04/02/24 09:30 104/59 L 04/02/24 09:15 100/60 04/02/24 09:09 36.8 C 96 H 22 93 04/02/24 08:03 36.8 C 105 H 14 95 04/02/24 08:00 111/71 04/02/24 07:45 115/70 04/02/24 07:42 106 H 14 95 04/02/24 07:31 129/70 04/02/24 07:15 117/64 04/02/24 07:09 36.8 C 107 H 16 96 04/02/24 06:45 36.3 C L 108 H 11 L 97 04/02/24 06:31 106/65 04/02/24 06:30 36.6 C 101 H 19 122/71 96 04/02/24 06:24 107 H 19 96 04/02/24 06:06 98 H 15 95 04/02/24 06:00 118/63 04/02/24 06:00 118/63 04/02/24 05:45 115/74 04/02/24 05:42 108 H 24 94 04/02/24 05:33 108 H 18 95 04/02/24 05:30 124/69 04/02/24 05:30 124/69 04/02/24 05:27 108 H 17 96 04/02/24 05:06 107 H 19 95 04/02/24 05:00 101/62 04/02/24 04:00 36.6 C 106 H 20 123/87 96 04/02/24 03:00 36.6 C 105 H 26 H 113/71 97 04/02/24 02:45 36.7 C 101 H 102/67 04/02/24 02:15 36.7 C 101 H 86/62 L 04/02/24 02:00 108/63 04/02/24 02:00 36.8 C 107 H 17 108/63 04/02/24 01:30 105 H 15 106/65 95 04/02/24 01:00 36.8 C 106 H 16 122/61 94 O2 Del Method O2 Flow Rate 04/02/24 11:27 04/02/24 11:20 04/02/24 10:45 04/02/24 09:30 04/02/24 09:15 04/02/24 09:09 04/02/24 08:03 04/02/24 08:00 04/02/24 07:45 04/02/24 07:42 04/02/24 07:31 04/02/24 07:15 04/02/24 07:09 04/02/24 06:45 04/02/24 06:31 04/02/24 06:30 Nasal Cannula 2 04/02/24 06:24 04/02/24 06:06 04/02/24 06:00 04/02/24 06:00 04/02/24 05:45 04/02/24 05:42 04/02/24 05:33 04/02/24 05:30 04/02/24 05:30 04/02/24 05:27 04/02/24 05:06 04/02/24 05:00 04/02/24 04:00 Nasal Cannula 2 04/02/24 03:00 04/02/24 02:45 04/02/24 02:15 04/02/24 02:00 04/02/24 02:00 04/02/24 01:30 04/02/24 01:00 Laboratory Results 04/02/24 04:12 04/02/24 04:12 PG Care Time/CCT Total # of Minutes Spent Total Time Spent with Patient: Total time spent is greater than 50% in coordination of care (as documented) at patient's floor/unit and/or counseling patient: Coding Level of Care Code 13202 SUB INP/OBS CARE 3/50MIN Diagnoses Sepsis A41.9 Cellulitis of left lower leg L03.116 Unwitnessed fall R29.6 Melanoma C43.9 Pulmonary embolism I26.99 Chronic kidney disease, stage 3 N18.3
[2024-04-02] MEDS: cefTRIAXone SODIUM 2,000 MG/50 ML BAG IV SCH (13:06)
[2024-04-02] MEDS: NYSTATIN SUSP 500,000 U/5 ML UDC PO SCH (14:11)
[2024-04-02] MEDS: ARTIFICIAL TEARS OPB PRN (19:38)
[2024-04-03 06:50] LABS: Basophils # (auto) 0.09 K/uL (0.00-0.20); Basophils % (auto) 0.8 %; Eosinophils # (auto) 0.64 K/uL (0.00-0.50); Eosinophils % (auto) 5.4 %; Hematocrit (blood only) 36.2 % (42.0-52.0); Hemoglobin 12.2 g/dl (14.0-18.0); Immature Granulocytes # (auto) 0.04 K/uL (0.01-0.20); Immature Granulocytes % (auto) 0.3 %; Lymphocytes # (auto) 2.07 K/uL (1.20-3.40); Lymphocytes % (auto) 17.4 %; Mean Corpuscular Hemoglobin 31.2 pg (25.0-34.0); Mean Corpuscular Hgb Conc 33.7 g/dL (32.0-36.0); Mean Corpuscular Volume 92.6 fL (80.0-100.0); Monocytes # (auto) 0.99 K/uL (0.11-0.59); Monocytes % (auto) 8.3 %; Neutrophils # (auto) 8.04 K/uL (1.40-6.50); Neutrophils % (auto) 67.8 %; Platelet Count 224 K/uL (130-400); RDW Coefficient of Variation 15.6 % (11.5-14.5); RDW Standard Deviation 53.2 fL (36.4-46.3); Red Blood Count 3.91 M/uL (4.70-6.10); White Blood Count 11.87 K/ul (4.8-10.8)
[2024-04-03 07:08] LABS: BUN Creatinine Ratio 18.3 (10-20); Calcium 9.8 mg/dl (8.6-10.3); Potassium 2.8 mmol/L (3.5-5.1)
[2024-04-03] MEDS: allopurinoL 100 MG TAB PO SCH (08:18)
[2024-04-03] MEDS: PANTOprazole 40 MG TAB PO SCH (08:18)
[2024-04-03] MEDS: POTASSIUM CHLORIDE CRTAB 20 MEQ TABCR PO STA (10:29)
[2024-04-03] MEDS: ACETAMINOPHEN 325 MG TAB PO PRN (10:29)
[2024-04-03] MEDS: HEPARIN 100 UNIT/ML 5ML FLUSH FLUSH PRN (12:50)
--- NOTE | 2024-04-03 13:26 | Hospitalist Progress Note ---
Date of Service April 03, 2024 Assessment & Plan (1) Sepsis: Plan: Suspected on admission. With hypotension consistent with septic shock transiently requiring pressor support. He is now off pressors. Vancomycin and cefepime have been switched to Rocephin. CT scan of the lower extremity is negative for abscess (2) Cellulitis of left lower leg: Plan: Chronic underlying stasis dermatitis with recurrent cellulitis. MRSA swab is negative. Vancomycin and cefepime have been switched over to Rocephin. (3) Unwitnessed fall: Plan: Multiple Falls on Warfarin. Coumadin has been discontinued. Supportive care. OT and PT evaluations. Also known left chest hematoma from recent fall (4) Melanoma: Plan: Stage III. S/p surgical excision and Keytruda adjuvant therapy. 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 This was treated with steroids and patient returned to 75-80% of his baseline per family, but is gradually declined somewhat since his prior discharge. PET 01/2023 with no evidence of mets. Last CTA/P 03/24/[address] 01/23/2024 without evidence of metastasis (5) Pulmonary embolism: Plan: History of PE 2021. Apparently he has been on Coumadin since that time. Due to his multiple recent falls and left chest hematoma, the Coumadin has been discontinued. (6) Chronic kidney disease, stage 3: Plan: Monitor intake and output. Serial labs Plan To be determined. OT and PT assessments requested. Palliative care evaluation requested. Currently DNR/DNI status Admission and Anticipated Discharge Date Admission Date: April 01, 2024 Subjective Awake and alert but completely disoriented. Palliative care consultation and recommendations are pending. Coumadin has been discontinued. Potassium remains low at 2.8 and oral supplementation started. Creatinine continues to improve, now down to 1.4 today, April 03. Nystatin swish and swallow has been started for oral thrush. He fell at the bedside today and suffered an abrasion of the right knee which does not need any specific attention. He remains on Rocephin for the left lower extremity cellulitis. Review of Systems 2 Review of Systems: The patient is unable to reliably answer any questions regarding review of systems at this time Physical Exam 2 Physical Exam: General-alert but confused. No fever HEENT-head atraumatic and normocephalic, pupils equal and reactive to light, extraocular muscles intact Neck-no lymphadenopathy or thyromegaly, trachea midline Chest-clear to auscultation. No rales, wheezing or rhonchi Cardiac-regular rate and rhythm, normal S1 and S2 Abdomen-normal bowel sounds, no hepatosplenomegaly Extremities-no cyanosis, clubbing, or edema. Chronic stasis dermatitis with cellulitis left lower extremity below the knee Neuro-cranial nerves II through XII intact, motor and sensory function within normal limits, strength symmetrical, no focal deficits Psych-awake and alert but confused. Results & Data Results & Data Vital Signs (Past 12 Hours) Vital Signs Temp Pulse Pulse Resp BP Pulse Ox O2 Del Method 04/03/24 11:24 36.6 C 93 H 18 108/69 94 Room Air 04/03/24 09:10 36.8 C 110 H 131/74 92 Room Air 04/03/24 08:25 Room Air 04/03/24 07:50 36.8 C 108 H 18 144/80 H 92 Room Air 04/03/24 07:19 108 H 04/03/24 03:50 37.0 C 110 H 18 138/80 93 Room Air Laboratory Results 04/03/24 06:02 04/03/24 06:02 PG Care Time/CCT Total # of Minutes Spent Total Time Spent with Patient: Total time spent is greater than 50% in coordination of care (as documented) at patient's floor/unit and/or counseling patient: Coding Level of Care Code 33101 SUB INP/OBS CARE 3/50MIN Diagnoses Sepsis A41.9 Cellulitis of left lower leg L03.116 Unwitnessed fall R29.6 Melanoma C43.9 Pulmonary embolism I26.99 Chronic kidney disease, stage 3 N18.3
--- NOTE | 2024-04-03 14:54 | Palliative Care Consultation ---
Date of Consultation April 03, 2024 Assessment & Plan (1) Advanced care planning/counseling discussion: I had a 20min ACP discussion with and dtr in law telephonically; we discussed his current issues, 's concerns for his safety at home/she cannot manage/he has been falling ore and requires more physical support. We spoke about rehab trial at SNF and they were in agreement - they would like dc to SNF with rehab trial then likely move on to penitentiary care at SNF. They asked to speak with care mgt and had some financial questions specifically. We spoke about trial of rehab - if this helps then stay the course and if he worsens in spite of it, can transition to [employer]PER[employer] with addition of hospice at SNF. is clear she can no longer manage his physical needs on her own and they do not have the means to pay for private caregivers ATC. (2) Palliative care by specialist: Introduced Palliative Medicine and explained our role in patient's care. Patient and/or family were receptive to palliative services for goals of care discussions. Reviewed we are different from hospice, a home health nurse visiting service. (3) Altered mental status: (4) Metastatic melanoma: Plan As above I will follow peripherally, contact information provided to family. Thank you for allowing us to participate in the ongoing care of this patient. Please page with any additional concerns. Cherie Hernandez DNP Director, Palliative Medicine History of Present Illness Reason for Consultation: Goals of care Attending Physician: Joseph Friedman MD History of Present Illness Tio Maldonado is a 78-year-old male with metastatic melanoma, chronic kidney disease, diastolic dysfunction, and declining physical performance status admitted with altered levels of consciousness found to be in severe sepsis with septic shock. Initial lactate was elevated at 4 now down to below 3. He is been initiated on broad-spectrum antibiotic and has received appropriate crystalloids. Portals of entry would include the skin and soft tissue infections as well as potential sources given the imaging findings. he was admitted 04/01 via ED with lethargy and confusion; ++multiple Falls on Warfarin - had 5 falls over the weekend, 3 of which were unwitnessed. He was not mentating at his normal baseline the last 2 days, although had not expressed headache or neck pain. +history met melanoma, now encephalopathic Stage III melanoma S/p surgical revision; underwent Keytruda adjuvant therapy last treatment of which was deferred due to the development of encephalitis. This was treated with steroids and patient returned to 75-80% of his baseline per family, but is gradually declined somewhat since his prior discharge PET 01/2023 with no evidence of mets. 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 Per CCM notes, patient's does report that she is unable to care for him at home and would like for him to be placed Allergies Allergy/AdvReac Type Severity Reaction Status Date / Time gabapentin Allergy Intermediate Rash Verified 02/24/24 09:51 tramadol Allergy Intermediate Rash and Verified 02/24/24 09:51 itchiness hydrocodone Allergy Mild itchy Verified 02/24/24 09:51 oxycodone Allergy Mild itchy Verified 02/24/24 09:51 carbamazepine Allergy Unknown Unknown Verified 02/24/24 09:51 ciprofloxacin Allergy Unknown Unknown Verified 02/24/24 09:51 Home Medications Medication Instructions Recorded Confirmed Type acetaminophen 650 mg 650 mg PO Q4H PRN Pain 01/27/24 04/01/24 History tablet,extended release allopurinol 100 mg tablet 100 mg PO QAM 01/27/24 04/01/24 History ferrous sulfate 325 mg (65 mg 325 mg PO BIDM #60 tabs 02/06/24 04/01/24 Rx iron) tablet,delayed release metoprolol succinate 50 mg 50 mg PO QAM #30 tabs 02/06/24 04/01/24 Rx tablet,extended release 24 hr sennosides 8.6 mg-docusate sodium 1 tab PO BID #60 tabs 02/06/24 04/01/24 Rx 50 mg tablet (Senokot-S) polyethylene glycol 3350 17 gram 17 g PO QAM 02/10/24 04/01/24 History oral powder packet (Miralax) furosemide 40 mg tablet 40 mg PO DAILY PRN weight 02/24/24 04/01/24 History gain/swelling pregabalin 50 mg capsule 50 mg PO DAILY 03/11/24 04/01/24 History metoclopramide HCl 5 mg tablet 5 mg PO BID PRN nausea and 03/24/24 04/01/24 Rx (Reglan) vomiting #6 tabs potassium citrate 10 mEq (1,080 10 meq PO BID 03/24/24 04/01/24 History mg) tablet,extended release warfarin 5 mg tablet 5 mg PO DAILY 03/26/24 04/01/24 History Patient History Medical History Obesity Encephalitis Pulmonary embolism on long-term anticoagulation therapy Atrial fibrillation and flutter Pulmonary embolism Constipated COVID-19 Osteoarthritis Surgical History History of left shoulder replacement History of right shoulder replacement History of total left knee replacement (TKR) History of total right knee replacement (TKR) with revision History of colonoscopy History of inguinal hernia repair History of cancer surgery Left side of neck resection + lymph node removal History of tooth extraction History of tonsillectomy and adenoidectomy History of sinus surgery History of cystoscopy History of cataract surgery bilateral History of back surgery L4-L5 with screws Family History Family/Other Diabetes Heart disease Nephrolithiasis Other No family history of adverse response to anesthesia Social History Smoking Status: Never smoker Second Hand Exposure: No; Do You Dip or Chew Tobacco: No; Hx Alcohol Use: No Hx Substance Use: No Preferred Language: Thai Communication Ability: Impaired [employer] L[employer] Room Attendant Required: No Beliefs That Will Affect Care: None Current Living Situation: Spouse current occupational status: retired Feels Safe at Home: No Is there a partner from a previous relationship who is making you feel unsafe now?: No Seatbelt Use: always Assistive Devices: Cane, Walker and Wheelchair Review of Systems Review of Systems: Unobtainable due to cognitive status Physical Exam Physical Exam: Chronically ill appearing frail confused but cooperative, a bit fatigued per [employer] in room, pt was able to walk in hallways with PT x 2 and spent an hour OOB to chair he needed 1 person assist to get out of chair and pivot to bed, required legs be lifted into bed bitemp wasting dentition poor erythematous areas on face/orthodox neck supple, no stridor resp effort increased with exertion, diminished bilat s1s2, no murmur abd soft, NTP, BS+ deconditioned BLE with venous insuff changes Results & Data Vital Signs (Past 12 Hours) Vital Signs Temp Pulse Pulse Resp BP Pulse Ox O2 Del Method 04/03/24 11:24 36.6 C 93 H 18 108/69 94 Room Air 04/03/24 09:10 36.8 C 110 H 131/74 92 Room Air 04/03/24 08:25 Room Air 04/03/24 07:50 36.8 C 108 H 18 144/80 H 92 Room Air 04/03/24 07:19 108 H 04/03/24 03:50 37.0 C 110 H 18 138/80 93 Room Air Laboratory Results 04/03/24 04/02/24 04/02/24 Range/Units 06:02 20:18 04:12 WBC 11.87 H 5.52 (4.8-10.8) K/ul RBC 3.91 L 4.13 L (4.70-6.10) M/uL Hgb 12.2 L 12.9 L (14.0-18.0) g/dl POC Hgb (14.0-18.0) g/dl Hct 36.2 L 39.7 L (42.0-52.0) % POC Hct (42-52) % MCV 92.6 96.1 (80.0-100.0) fL MCH 31.2 31.2 (25.0-34.0) pg MCHC 33.7 32.5 (32.0-36.0) g/dL RDW Std Deviation 53.2 H 57.1 H (36.4-46.3) fL RDW Coeff of Lisbeth 15.6 H 15.9 H (11.5-14.5) % Plt Count 224 214 (130-400) K/uL MPV 10.0 9.9 (9.4-12.4) fL Immature Gran % (Auto) 0.3 0.2 % Neut % (Auto) 67.8 77.1 % Lymph % (Auto) 17.4 20.1 % [place] % (Auto) 8.3 2.0 % Eos % (Auto) 5.4 0.2 % Baso % (Auto) 0.8 0.4 % Neut # (Auto) 8.04 H 4.26 (1.40-6.50) K/uL Lymph # (Auto) 2.07 1.11 L (1.20-3.40) K/uL [place] # (Auto) 0.99 H 0.11 (0.11-0.59) K/uL Eos # (Auto) 0.64 H 0.01 (0.00-0.50) K/uL Baso # (Auto) 0.09 0.02 (0.00-0.20) K/uL Immature Gran # (Auto) 0.04 0.01 (0.01-0.20) K/uL Polychromasia Tear Drop Cells PT (9.0-12.0) Seconds INR (0.9-1.1) VBG pH (7.36-7.41) VBG pCO2 (38-50) mmHg VBG pO2 mmHg VBG HCO3 mmol/L VBG O2 Saturation % VBG Base Excess mEq/L POC Sodium (135-144) mmol/L Sodium 141 138 (136-145) mmol/L POC Potassium (3.3-5.0) mmol/L Potassium 2.8 L 3.4 L (3.5-5.1) mmol/L POC Chloride (101-112) mmol/L Chloride 103 101 (98-107) mmol/L Carbon Dioxide 30 29 (21-32) mmol/L POC Total CO2 (24-31) mmol/L Anion Gap 8 8 (3-11) POC Anion Gap (16-25) mmol/L POC BUN (7-18) mg/dl BUN 26 H 25 H (6-23) mg/dl Creatinine 1.42 H D 1.77 H D (0.6-1.4) mg/dl POC Creatinine (0.6-1.3) mg/dl Est Cr Clr Drug Dosing 53.0 42.6 ml/min eGFR 50.26 38.59 BUN/Creatinine Ratio 18.3 14.1 (10-20) Glucose 101 H 165 H (70-99(Fasting)) mg/dl POC Glucose 118 H 154 H (70-99) mg/dl POC Glucose (other) (70-99) mg/dl Lactate (0.4-2.0) mmol/L Calcium 9.8 9.9 (8.6-10.3) mg/dl POC Ioniz Calcium Laura (1.12-1.32) mmol/l Magnesium 1.8 (1.7-2.4) mg/dl Total Bilirubin (0.2-1.0) mg/dl Direct Bilirubin (0-0.2) mg/dl AST (13-39) U/L ALT (7-52) U/L Alkaline Phosphatase (34-104) U/L Troponin I High Sens (0-20) pg/ml C-Reactive Protein 5.61 H (0-0.5) mg/dl Total Protein (6.0-8.3) gm/dl Albumin (3.4-5.0) gm/dl Procalcitonin Random Cortisol mcg/dl Urine Color Urine Appearance (Clear) Urine pH (4.5-7.5) Ur Specific [place] (1.000-1.030) Urine Protein (Negative) Urine Glucose (UA) (Negative) Urine Ketones (Negative) Urine Blood (Negative) Urine Nitrite (Negative) Urine Bilirubin (Negative) Urine Urobilinogen (Negative) Ur Leukocyte Esterase (Negative) Urine WBC (Auto) (0-5) /hpf Urine RBC (Auto) (0-2) /hpf U Hyaline Cast (Auto) (0-2) /lpf U Epithel Cells (Auto) (0-2) /hpf Urine Bacteria (Auto) (None Seen) Nasal Screen MRSA (PCR) (Negative) Random Vancomycin 19.4 (10-20) mcg/ml Adenovirus (PCR) (NotDetected) B. pertussis DNA (PCR) (NotDetected) B.parapertussis DNA PCR (NotDetected) C. pneumoniae DNA (PCR) (NotDetected) Coronavirus OC43 (PCR) (NotDetected) Coronavirus HKU1 (PCR) (NotDetected) Coronavirus 229E (PCR) (NotDetected) SARS-CoV-2 (PCR) (NotDetected) Coronavirus NL63 (PCR) (NotDetected) Human Metapneumovir PCR (NotDetected) Influenza Type A (PCR) (NotDetected) Influenza Type B (PCR) (NotDetected) M. pneumoniae (PCR) (NotDetected) Parainfluenza 1 (PCR) (NotDetected) Parainfluenza 2 (PCR) (NotDetected) Parainfluenza 3 (PCR) (NotDetected) Parainfluenza 4 (PCR) (NotDetected) RSV (PCR) (NotDetected) Entero/Rhino (PCR) (NotDetected) Ref Lab Test Result Blood Type Antibody Screen 04/01/24 04/01/24 04/01/24 Range/Units Unknown 20:20 16:29 WBC (4.8-10.8) K/ul RBC (4.70-6.10) M/uL Hgb (14.0-18.0) g/dl POC Hgb (14.0-18.0) g/dl Hct (42.0-52.0) % POC Hct (42-52) % MCV (80.0-100.0) fL MCH (25.0-34.0) pg MCHC (32.0-36.0) g/dL RDW Std Deviation (36.4-46.3) fL RDW Coeff of Lisbeth (11.5-14.5) % Plt Count (130-400) K/uL MPV (9.4-12.4) fL Immature Gran % (Auto) % Neut % (Auto) % Lymph % (Auto) % [place] % (Auto) % Eos % (Auto) % Baso % (Auto) % Neut # (Auto) (1.40-6.50) K/uL Lymph # (Auto) (1.20-3.40) K/uL [place] # (Auto) (0.11-0.59) K/uL Eos # (Auto) (0.00-0.50) K/uL Baso # (Auto) (0.00-0.20) K/uL Immature Gran # (Auto) (0.01-0.20) K/uL Polychromasia Tear Drop Cells PT (9.0-12.0) Seconds INR (0.9-1.1) VBG pH (7.36-7.41) VBG pCO2 (38-50) mmHg VBG pO2 mmHg VBG HCO3 mmol/L VBG O2 Saturation % VBG Base Excess mEq/L POC Sodium (135-144) mmol/L Sodium (136-145) mmol/L POC Potassium (3.3-5.0) mmol/L Potassium (3.5-5.1) mmol/L POC Chloride (101-112) mmol/L Chloride (98-107) mmol/L Carbon Dioxide (21-32) mmol/L POC Total CO2 (24-31) mmol/L Anion Gap (3-11) POC Anion Gap (16-25) mmol/L POC BUN (7-18) mg/dl BUN (6-23) mg/dl Creatinine (0.6-1.4) mg/dl POC Creatinine (0.6-1.3) mg/dl Est Cr Clr Drug Dosing ml/min eGFR BUN/Creatinine Ratio (10-20) Glucose (70-99(Fasting)) mg/dl POC Glucose 119 H 116 H (70-99) mg/dl POC Glucose (other) (70-99) mg/dl Lactate (0.4-2.0) mmol/L Calcium (8.6-10.3) mg/dl POC Ioniz Calcium Laura (1.12-1.32) mmol/l Magnesium (1.7-2.4) mg/dl Total Bilirubin (0.2-1.0) mg/dl Direct Bilirubin (0-0.2) mg/dl AST (13-39) U/L ALT (7-52) U/L Alkaline Phosphatase (34-104) U/L Troponin I High Sens (0-20) pg/ml C-Reactive Protein (0-0.5) mg/dl Total Protein (6.0-8.3) gm/dl Albumin (3.4-5.0) gm/dl Procalcitonin Random Cortisol mcg/dl Urine Color Urine Appearance (Clear) Urine pH (4.5-7.5) Ur Specific [place] (1.000-1.030) Urine Protein (Negative) Urine Glucose (UA) (Negative) Urine Ketones (Negative) Urine Blood (Negative) Urine Nitrite (Negative) Urine Bilirubin (Negative) Urine Urobilinogen (Negative) Ur Leukocyte Esterase (Negative) Urine WBC (Auto) (0-5) /hpf Urine RBC (Auto) (0-2) /hpf U Hyaline Cast (Auto) (0-2) /lpf U Epithel Cells (Auto) (0-2) /hpf Urine Bacteria (Auto) (None Seen) Nasal Screen MRSA (PCR) Negative (Negative) Random Vancomycin (10-20) mcg/ml Adenovirus (PCR) Not Detected (NotDetected) B. pertussis DNA (PCR) Not Detected (NotDetected) B.parapertussis DNA PCR Not Detected (NotDetected) C. pneumoniae DNA (PCR) Not Detected (NotDetected) Coronavirus OC43 (PCR) Not Detected (NotDetected) Coronavirus HKU1 (PCR) Not Detected (NotDetected) Coronavirus 229E (PCR) Not Detected (NotDetected) SARS-CoV-2 (PCR) Not Detected (NotDetected) Coronavirus NL63 (PCR) Not Detected (NotDetected) Human Metapneumovir PCR Not Detected (NotDetected) Influenza Type A (PCR) Not Detected (NotDetected) Influenza Type B (PCR) Not Detected (NotDetected) M. pneumoniae (PCR) Not Detected (NotDetected) Parainfluenza 1 (PCR) Not Detected (NotDetected) Parainfluenza 2 (PCR) Not Detected (NotDetected) Parainfluenza 3 (PCR) Not Detected (NotDetected) Parainfluenza 4 (PCR) Not Detected (NotDetected) RSV (PCR) Not Detected (NotDetected) Entero/Rhino (PCR) Not Detected (NotDetected) Ref Lab Test Result Blood Type Antibody Screen 04/01/24 04/01/24 04/01/24 Range/Units 14:30 14:00 12:53 WBC (4.8-10.8) K/ul RBC (4.70-6.10) M/uL Hgb (14.0-18.0) g/dl POC Hgb 12.9 L (14.0-18.0) g/dl Hct (42.0-52.0) % POC Hct 38 L (42-52) % MCV (80.0-100.0) fL MCH (25.0-34.0) pg MCHC (32.0-36.0) g/dL RDW Std Deviation (36.4-46.3) fL RDW Coeff of Lisbeth (11.5-14.5) % Plt Count (130-400) K/uL MPV (9.4-12.4) fL Immature Gran % (Auto) % Neut % (Auto) % Lymph % (Auto) % [place] % (Auto) % Eos % (Auto) % Baso % (Auto) % Neut # (Auto) (1.40-6.50) K/uL Lymph # (Auto) (1.20-3.40) K/uL [place] # (Auto) (0.11-0.59) K/uL Eos # (Auto) (0.00-0.50) K/uL Baso # (Auto) (0.00-0.20) K/uL Immature Gran # (Auto) (0.01-0.20) K/uL Polychromasia Tear Drop Cells PT (9.0-12.0) Seconds INR (0.9-1.1) VBG pH (7.36-7.41) VBG pCO2 (38-50) mmHg VBG pO2 mmHg VBG HCO3 mmol/L VBG O2 Saturation % VBG Base Excess mEq/L POC Sodium 140 (135-144) mmol/L Sodium (136-145) mmol/L POC Potassium 3.0 L (3.3-5.0) mmol/L Potassium (3.5-5.1) mmol/L POC Chloride 99 L (101-112) mmol/L Chloride (98-107) mmol/L Carbon Dioxide (21-32) mmol/L POC Total CO2 26 (24-31) mmol/L Anion Gap (3-11) POC Anion Gap 18.0 (16-25) mmol/L POC BUN 25 H (7-18) mg/dl BUN (6-23) mg/dl Creatinine (0.6-1.4) mg/dl POC Creatinine 2.4 H (0.6-1.3) mg/dl Est Cr Clr Drug Dosing ml/min eGFR BUN/Creatinine Ratio (10-20) Glucose (70-99(Fasting)) mg/dl POC Glucose (70-99) mg/dl POC Glucose (other) 141 H (70-99) mg/dl Lactate 2.5 H* (0.4-2.0) mmol/L Calcium (8.6-10.3) mg/dl POC Ioniz Calcium Laura 1.22 (1.12-1.32) mmol/l Magnesium (1.7-2.4) mg/dl Total Bilirubin (0.2-1.0) mg/dl Direct Bilirubin (0-0.2) mg/dl AST (13-39) U/L ALT (7-52) U/L Alkaline Phosphatase (34-104) U/L Troponin I High Sens (0-20) pg/ml C-Reactive Protein (0-0.5) mg/dl Total Protein (6.0-8.3) gm/dl Albumin (3.4-5.0) gm/dl Procalcitonin Random Cortisol 1.83 mcg/dl Urine Color Yellow Urine Appearance Clear (Clear) Urine pH 6.5 (4.5-7.5) Ur Specific [place] 1.009 (1.000-1.030) Urine Protein Negative (Negative) Urine Glucose (UA) Negative (Negative) Urine Ketones Negative (Negative) Urine Blood 1+ H (Negative) Urine Nitrite Negative (Negative) Urine Bilirubin Negative (Negative) Urine Urobilinogen Negative (Negative) Ur Leukocyte Esterase Negative (Negative) Urine WBC (Auto) 0-5 (0-5) /hpf Urine RBC (Auto) >20 H (0-2) /hpf U Hyaline Cast (Auto) 6-10 H (0-2) /lpf U Epithel Cells (Auto) 0-2 (0-2) /hpf Urine Bacteria (Auto) None Seen (None Seen) Nasal Screen MRSA (PCR) (Negative) Random Vancomycin (10-20) mcg/ml Adenovirus (PCR) (NotDetected) B. pertussis DNA (PCR) (NotDetected) B.parapertussis DNA PCR (NotDetected) C. pneumoniae DNA (PCR) (NotDetected) Coronavirus OC43 (PCR) (NotDetected) Coronavirus HKU1 (PCR) (NotDetected) Coronavirus 229E (PCR) (NotDetected) SARS-CoV-2 (PCR) (NotDetected) Coronavirus NL63 (PCR) (NotDetected) Human Metapneumovir PCR (NotDetected) Influenza Type A (PCR) (NotDetected) Influenza Type B (PCR) (NotDetected) M. pneumoniae (PCR) (NotDetected) Parainfluenza 1 (PCR) (NotDetected) Parainfluenza 2 (PCR) (NotDetected) Parainfluenza 3 (PCR) (NotDetected) Parainfluenza 4 (PCR) (NotDetected) RSV (PCR) (NotDetected) Entero/Rhino (PCR) (NotDetected) Ref Lab Test Result Blood Type Antibody Screen 04/01/24 04/01/24 04/01/24 Range/Units 12:07 11:48 11:37 WBC 12.39 H (4.8-10.8) K/ul RBC 4.32 L (4.70-6.10) M/uL Hgb 13.6 L (14.0-18.0) g/dl POC Hgb 15.0 (14.0-18.0) g/dl Hct 42.4 (42.0-52.0) % POC Hct 44 (42-52) % MCV 98.1 (80.0-100.0) fL MCH 31.5 (25.0-34.0) pg MCHC 32.1 (32.0-36.0) g/dL RDW Std Deviation 59.5 H (36.4-46.3) fL RDW Coeff of Lisbeth 16.3 H (11.5-14.5) % Plt Count 306 (130-400) K/uL MPV 10.3 (9.4-12.4) fL Immature Gran % (Auto) 0.3 % Neut % (Auto) 41.5 % Lymph % (Auto) 40.7 % [place] % (Auto) 14.9 % Eos % (Auto) 2.0 % Baso % (Auto) 0.6 % Neut # (Auto) 5.15 (1.40-6.50) K/uL Lymph # (Auto) 5.04 H (1.20-3.40) K/uL [place] # (Auto) 1.84 H (0.11-0.59) K/uL Eos # (Auto) 0.25 (0.00-0.50) K/uL Baso # (Auto) 0.07 (0.00-0.20) K/uL Immature Gran # (Auto) 0.04 (0.01-0.20) K/uL Polychromasia 1+ Tear Drop Cells 1+ PT 17.7 H (9.0-12.0) Seconds INR 1.7 H (0.9-1.1) VBG pH 7.40 (7.36-7.41) VBG pCO2 54 H (38-50) mmHg VBG pO2 < 20 mmHg VBG HCO3 33 mmol/L VBG O2 Saturation < 60.0 % VBG Base Excess 7.0 mEq/L POC Sodium 138 (135-144) mmol/L Sodium 139 (136-145) mmol/L POC Potassium 3.3 (3.3-5.0) mmol/L Potassium 3.4 L (3.5-5.1) mmol/L POC Chloride 99 L (101-112) mmol/L Chloride 99 (98-107) mmol/L Carbon Dioxide 30 (21-32) mmol/L POC Total CO2 27 (24-31) mmol/L Anion Gap 10 (3-11) POC Anion Gap 16.0 (16-25) mmol/L POC BUN 27 H (7-18) mg/dl BUN 28 H (6-23) mg/dl Creatinine 2.21 H (0.6-1.4) mg/dl POC Creatinine 2.5 H (0.6-1.3) mg/dl Est Cr Clr Drug Dosing 33.8 ml/min eGFR 29.56 BUN/Creatinine Ratio 12.7 (10-20) Glucose 100 H (70-99(Fasting)) mg/dl POC Glucose (70-99) mg/dl POC Glucose (other) 103 H (70-99) mg/dl Lactate 3.6 H* (0.4-2.0) mmol/L Calcium 11.0 H (8.6-10.3) mg/dl POC Ioniz Calcium Laura 1.16 (1.12-1.32) mmol/l Magnesium 1.6 L (1.7-2.4) mg/dl Total Bilirubin 1.6 H (0.2-1.0) mg/dl Direct Bilirubin 0.6 H (0-0.2) mg/dl AST 99 H (13-39) U/L ALT 24 (7-52) U/L Alkaline Phosphatase 94 (34-104) U/L Troponin I High Sens 18.8 (0-20) pg/ml C-Reactive Protein 3.68 H (0-0.5) mg/dl Total Protein 5.8 L (6.0-8.3) gm/dl Albumin 3.0 L (3.4-5.0) gm/dl Procalcitonin Cancelled Random Cortisol mcg/dl Urine Color Urine Appearance (Clear) Urine pH (4.5-7.5) Ur Specific [place] (1.000-1.030) Urine Protein (Negative) Urine Glucose (UA) (Negative) Urine Ketones (Negative) Urine Blood (Negative) Urine Nitrite (Negative) Urine Bilirubin (Negative) Urine Urobilinogen (Negative) Ur Leukocyte Esterase (Negative) Urine WBC (Auto) (0-5) /hpf Urine RBC (Auto) (0-2) /hpf U Hyaline Cast (Auto) (0-2) /lpf U Epithel Cells (Auto) (0-2) /hpf Urine Bacteria (Auto) (None Seen) Nasal Screen MRSA (PCR) (Negative) Random Vancomycin (10-20) mcg/ml Adenovirus (PCR) (NotDetected) B. pertussis DNA (PCR) (NotDetected) B.parapertussis DNA PCR (NotDetected) C. pneumoniae DNA (PCR) (NotDetected) Coronavirus OC43 (PCR) (NotDetected) Coronavirus HKU1 (PCR) (NotDetected) Coronavirus 229E (PCR) (NotDetected) SARS-CoV-2 (PCR) (NotDetected) Coronavirus NL63 (PCR) (NotDetected) Human Metapneumovir PCR (NotDetected) Influenza Type A (PCR) (NotDetected) Influenza Type B (PCR) (NotDetected) M. pneumoniae (PCR) (NotDetected) Parainfluenza 1 (PCR) (NotDetected) Parainfluenza 2 (PCR) (NotDetected) Parainfluenza 3 (PCR) (NotDetected) Parainfluenza 4 (PCR) (NotDetected) RSV (PCR) (NotDetected) Entero/Rhino (PCR) (NotDetected) Ref Lab Test Result See Scanned Report Blood Type A Positive Antibody Screen NEGATIVE Diagnostic Findings Chest X-Ray 04/01/24 11:34 XR chest 1V portable CLINICAL HISTORY: Sepsis COMPARISON STUDY: Chest CT January 27, 2024. Chest radiograph March 24, 2024. FINDINGS: Right internal jugular [id number] is partially imaged. Position ap pears unchanged. Bilateral shoulder arthroplasties are incidentally noted. Cardiomegaly is unchanged. Mediastinal contours are stable. There is no evidence for pulmonary edema or pneumonia. There is no pneumothorax or pleural effusion. IMPRESSION: No acute cardiopulmonary findings. No change in appearance of the chest. ACT 112: Negative or not required by law. Electronically signed by: Nino Oakes M.D. 04/01/2024 12:38 PM Abdomen/Pelvis CT 04/01/24 13:46 CT chest diagnostic wo con, CT abd pelvis wo con CLINICAL HISTORY: 78 years-old Male with critically ill, falls w warfain, L chest wall evelin. Acute chest and abdominal trauma status post fall TECHNIQUE: Multiaxial CT images of the chest, abdomen and pelvis were performed without contrast. A dose lowering technique was utilized adhering to the principles of ALARA. COMPARISON: , CT abdomen and pelvis 03/24/2024, chest CT January 27, 2024 FINDINGS: CT CHEST: Unremarkable thyroid. Right IJ catheter distal tip terminates within the mid SVC. Mild cardiomegaly with advanced coronary artery calcifications. Unchanged 1.8 x 1.2 cm subpleural nodule adjacent to the right upper lung on image 116 series 8. Partially calcified mediastinal lymph nodes measure up to 1.4 cm. Fusiform dilation of the ascending thoracic aorta, 4.5 x 4.5 cm. Dilation of the pulmonary arteries suggestive of pulmonary arterial hypertension. Small pleural effusions. Intralobular septal thickening. No pneumothorax. Groundglass densities with bibasilar consolidation and mucous plugging. Central airways appear patent. Subacute to chronic left pectoralis intramuscular hematoma redemonstrated, decreased in size from prior. This measures up to approximately 6 x a 19 cm, previously 11 x 18 cm. Bilateral shoulder arthroplasties. No acute fracture identified. ABDOMEN/PELVIS: No pneumoperitoneum. The unenhanced spleen, pancreas and adrenal glands are unremarkable. Unremarkable gallbladder. Severe hepatic steatosis. Bilateral renal sinuses with perinephric stranding redemonstrated. There is mild thickening of the collecting systems and ureters. Decompressed bladder with See catheter in place. Atherosclerosis of the aorta. Trace free pelvic fluid. No lymphadenopathy. No bowel obstruction or bowel wall thickening. Colonic diverticulosis. Moderate colonic fecal retention. Normal appendix. Tiny fat filled umbilical hernia. Degenerative changes of the shoulders and spine. Degenerative changes of the lumbar spine. No acute fracture identified. IMPRESSION: 1. Decreased size of the subacute to chronic left chest wall hematoma. 2. No acute posttraumatic intrathoracic or intra-abdominal abnormality identified. 3. No acute fracture. 4. Cardiomegaly with interstitial pulmonary edema and trace pleural effusions. 5. Mild bibasilar consolidation may represent atelectasis versus pneumonitis. 6. No bowel obstruction or bowel wall thickening. 7. Body wall edema with trace ascites. 8. Bilat. perinephric stranding with urothelial thickening of the renal collecting systems redemonstrated. Correlate with urinalysis. ACT 112: Negative or not required by law. Electronically signed by: Dominick George M.D. 04/01/2024 3:[address] 04/01/24 13:46 CT cervical spine wo con CLINICAL HISTORY: unwitness fall x3 on warfain, sepsis, lethargy TECHNIQUE: Multidetector row helical CT of the cervical spine was performed without administration of intravenous contrast. Coronal and sagittal reformations were obtained. Automated dose lowering techniques and/or adjustment according to patient size were utilized for this exam. Comparison: None available at the time of this dictation. FINDINGS: No acute fractures or subluxations are identified. Degenerative changes are seen in the visualized spine. The alignment is normal. Biapical scarring is seen in the lungs. IMPRESSION: Degenerative changes without evidence of acute bony injury. ACT 112: Negative or not required by law. Electronically signed by: Robert Gerber M.D. 04/01/2024 2:[address] 04/01/24 13:46 CT OF THE HEAD WITHOUT CONTRAST CLINICAL HISTORY: unwitnessed fall x3 on warfarin, sepsis, lethargy COMPARISON STUDY: MRI brain January 21, 2024. Head CT February 24, 2024. TECHNIQUE: Helical axial images of the head were obtained without IV contrast. Automated exposure control was utilized for the study. A dose lowering technique was utilized adhering to the principles of ALARA. FINDINGS: No acute intracranial hemorrhage, midline shift or mass effect is present. The ventricular system is unremarkable. The basal cisterns are patent. No extra-axial collections are present. There are no findings to suggest acute dural sinus thrombosis or acute territorial infarct. Bilateral basal ganglia calcification is incidentally noted. There are no calvarial fractures. Fluid density within the clivus is unchanged. Associated bony erosion appears unchanged from earlier exams. IMPRESSION: No acute intracranial findings. No change in appearance of the brain. ACT 112: Negative or not required by law. Electronically signed by: Nino Oakes M.D. 04/01/2024 2:[address] 04/01/24 13:59 CT femur LT wo con CLINICAL HISTORY: sepsis, purulent LLE infection COMPARISON STUDY: CT of the abdomen and pelvis March 24, 2024. Left knee radiographs May 13, 2011. TECHNIQUE: Axial images of the left thigh and femur were obtained without IV con trast. Sagittal and coronal reconstructions were viewed. Automated exposure control was utilized for the study. A dose lowering technique was utilized adhering to the principles of ALARA. FINDINGS: There are no fractures within the left femur. No areas of bony erosion are identified. There is no soft tissue gas within the left thigh. Visualized portions of the left knee arthroplasty are intact. There is no lucency or fracture adjacent to the femoral component of the left knee arthroplasty. No fluid collections within the left thigh are present. There is mild subcutaneous edema of the lateral left thigh with skin thickening. No muscular abnormality of the left thigh is identified. IMPRESSION: 1. No fractures within the left femur. No evidence for acute osteomyelitis. No fracture or lucency adjacent to the femoral component of the left knee arthroplasty. 2. Mild subcutaneous edema of the lateral left thigh. No associated fluid collections. No soft tissue gas. ACT 112: Negative or not required by law. Electronically signed by: Nino Oakes M.D. 04/01/2024 2:[address] 04/01/24 14:06 CT chest diagnostic wo con, CT abd pelvis wo con CLINICAL HISTORY: 78 years-old Male with critically ill, falls w warfain, L chest wall evelin. Acute chest and abdominal trauma status post fall TECHNIQUE: Multiaxial CT images of the chest, abdomen and pelvis were performed without contrast. A dose lowering technique was utilized adhering to the principles of ALARA. COMPARISON: , CT abdomen and pelvis 03/24/2024, chest CT January 27, 2024 FINDINGS: CT CHEST: Unremarkable thyroid. Right IJ catheter distal tip terminates within the mid SVC. Mild cardiomegaly with advanced coronary artery calcifications. Unchanged 1.8 x 1.2 cm subpleural nodule adjacent to the right upper lung on image 116 series 8. Partially calcified mediastinal lymph nodes measure up to 1.4 cm. Fusiform dilation of the ascending thoracic aorta, 4.5 x 4.5 cm. Dilation of the pulmonary arteries suggestive of pulmonary arterial hypertension. Small pleural effusions. Intralobular septal thickening. No pneumothorax. Groundglass densities with bibasilar consolidation and mucous plugging. Central airways appear patent. Subacute to chronic left pectoralis intramuscular hematoma redemonstrated, decreased in size from prior. This measures up to approximately 6 x a 19 cm, previously 11 x 18 cm. Bilateral shoulder arthroplasties. No acute fracture identified. ABDOMEN/PELVIS: No pneumoperitoneum. The unenhanced spleen, pancreas and adrenal glands are unremarkable. Unremarkable gallbladder. Severe hepatic steatosis. Bilateral renal sinuses with perinephric stranding redemonstrated. There is mild thickening of the collecting systems and ureters. Decompressed bladder with See catheter in place. Atherosclerosis of the aorta. Trace free pelvic fluid. No lymphadenopathy. No bowel obstruction or bowel wall thickening. Colonic diverticulosis. Moderate colonic fecal retention. Normal appendix. Tiny fat filled umbilical hernia. Degenerative changes of the shoulders and spine. Degenerative changes of the lumbar spine. No acute fracture identified. IMPRESSION: 1. Decreased size of the subacute to chronic left chest wall hematoma. 2. No acute posttraumatic intrathoracic or intra-abdominal abnormality identified. 3. No acute fracture. 4. Cardiomegaly with interstitial pulmonary edema and trace pleural effusions. 5. Mild bibasilar consolidation may represent atelectasis versus pneumonitis. 6. No bowel obstruction or bowel wall thickening. 7. Body wall edema with trace ascites. 8. Bilat. perinephric stranding with urothelial thickening of the renal collecting systems redemonstrated. Correlate with urinalysis. ACT 112: Negative or not required by law. Electronically signed by: Dominick George M.D. 04/01/2024 3:[address] 04/01/24 15:04 CT tib/fib LT wo con CLINICAL HISTORY: r/o deep tissue infection LLE TECHNIQUE: Multidetector row helical CT of the left tibia and fibula was performed without intravenous contrast. Coronal and sagittal reformations were obtained. Automated dose lowering techniques and/or adjustment according to patient size were utilized for this examination. CT DOSE: 1276.95 mGy.cm Comparison: Comparison is made to femur CT 04/01/2024 FINDINGS: The osseous structures are without fracture or dislocation. The joint spaces are maintained. No joint effusion is seen. Soft tissue swelling and skin thickening are seen without drainable fluid collection. IMPRESSION: Findings compatible with cellulitis without osteomyelitis or drainable fluid collection. ACT 112: Negative or not required by law. Electronically signed by: Robert Gerber M.D. 04/01/2024 4:36 PM PG Care Time/CCT Total # of Minutes Spent Total Time Spent with Patient: Total time spent is greater than 50% in coordination of care (as documented) at patient's floor/unit and/or counseling patient: I spent 70 minutes overall addressing this case: 15 min in medical data review/discussion with referring provider(s) and/or preparation for the visit 15min in direct interaction with the patient/exam 20 min in Advance Care Planning/Goals of Care discussions as detailed above in note (must be >16min) 10 min in subsequent review and synthesis of assessment and plan 10min communicating with other providers regarding the patient's case: Advanced Care Planning 82483 Advanced Care Planning 30 [place] [address] IN/OBS CONSULT LVL 3,45M (25 - SIGNIFICANT, SEPARATELY IDENTIFIABLE ) Patient Type New Medical Decision Making High Complexity Diagnoses Advanced care planning/counseling discussion Z71.89 Palliative care by specialist Z51.5 Altered mental status R41.82 Metastatic melanoma C43.9 Additional Codes Advanced Care Planning - 77366 Advanced Care Planning 30 Min: 43193 Advanced Care Planning 30 Min ([id number])
[2024-04-03] MEDS: POTASSIUM CHLORIDE CRTAB 20 MEQ TABCR PO SCH (21:19)
[2024-04-04 06:33] LABS: Basophils # (auto) 0.06 K/uL (0.00-0.20); Eosinophils # (auto) 0.91 K/uL (0.00-0.50); Eosinophils % (auto) 14.7 %; Hemoglobin 12.6 g/dl (14.0-18.0); Immature Granulocytes # (auto) 0.01 K/uL (0.01-0.20); Immature Granulocytes % (auto) 0.2 %; Lymphocytes # (auto) 1.73 K/uL (1.20-3.40); Lymphocytes % (auto) 27.9 %; Mean Corpuscular Hemoglobin 30.6 pg (25.0-34.0); Mean Corpuscular Hgb Conc 32.3 g/dL (32.0-36.0); Mean Corpuscular Volume 94.7 fL (80.0-100.0); Mean Platelet Volume 9.4 fL (9.4-12.4); Monocytes % (auto) 9.7 %; Neutrophils % (auto) 46.5 %; Platelet Count 195 K/uL (130-400); RDW Coefficient of Variation 15.8 % (11.5-14.5); RDW Standard Deviation 55.1 fL (36.4-46.3); Red Blood Count 4.12 M/uL (4.70-6.10); White Blood Count 6.21 K/ul (4.8-10.8)
[2024-04-04 06:45] LABS: BUN Creatinine Ratio 21.2 (10-20); Calcium 9.5 mg/dl (8.6-10.3); Creatinine Clr Calc Pharmacy 66.6 ml/min; Potassium 3.2 mmol/L (3.5-5.1)
--- NOTE | 2024-04-04 12:58 | Hospitalist Progress Note ---
Date of Service April 04, 2024 Assessment & Plan (1) Sepsis: Plan: Suspected on admission. With hypotension consistent with septic shock transiently requiring pressor support. He is now off pressors. Vancomycin and cefepime have been switched to Rocephin. Left lower extremity cellulitis is improving. CT scan of the lower extremity is negative for abscess (2) Cellulitis of left lower leg: Plan: Chronic underlying stasis dermatitis with recurrent cellulitis. MRSA swab is negative. Vancomycin and cefepime have been switched over to Rocephin. Improving (3) Unwitnessed fall: Plan: Multiple Falls on Warfarin. Coumadin has been discontinued. Supportive care. OT and PT evaluations. Known left chest hematoma from recent fall (4) Melanoma: Plan: Stage III. S/p surgical excision and Keytruda adjuvant therapy. 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 This was treated with steroids and patient returned to 75-80% of his baseline per family, but is gradually declined somewhat since his prior discharge. PET 01/2023 with no evidence of mets. Last CTA/P 03/24/[address] 01/23/2024 without evidence of metastasis (5) Pulmonary embolism: Plan: History of PE 2021. Apparently he has been on Coumadin since that time. Due to his multiple recent falls and left chest hematoma, the Coumadin will be discontinued. (6) Chronic kidney disease, stage 3: Plan: Monitor intake and output. 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 Supportive care. Plan Placement pending at either [facility] or [facility]. Probably sometime next week. The family does not wish to pursue hospice care at this time. Palliative care consultation appreciated Admission and Anticipated Discharge Date Admission Date: April 01, 2024 Subjective Easily awakened from sleep. He remains confused and disoriented but pleasant. Palliative care consultation appreciated. The family does not want to pursue hospice yet. He will go either to [facility] or [facility] sometime this coming week. Coumadin has been discontinued. He remains on intravenous Rocephin for the suspected left lower extremity cellulitis. He is also on nystatin swish and swallow for apparent thrush. Review of Systems 2 Review of Systems: The patient is unable to reliably answer any questions regarding review of systems at this time Physical Exam 2 Physical Exam: General-alert but confused. No fever HEENT-head atraumatic and normocephalic, pupils equal and reactive to light, extraocular muscles intact Neck-no lymphadenopathy or thyromegaly, trachea midline Chest-clear to auscultation. No rales, wheezing or rhonchi Cardiac-regular rate and rhythm, normal S1 and S2 Abdomen-normal bowel sounds, no hepatosplenomegaly Extremities-no cyanosis, clubbing, or edema. Chronic stasis dermatitis with cellulitis left lower extremity below the knee Neuro-cranial nerves II through XII intact, motor and sensory function within normal limits, strength symmetrical, no focal deficits Psych-awake and alert but confused. Results & Data Results & Data Vital Signs (Past 12 Hours) Vital Signs Temp Pulse Pulse Resp BP Pulse Ox O2 Del Method 04/04/24 11:25 36.9 C 101 H 17 124/73 92 Room Air 04/04/24 07:59 Room Air 04/04/24 07:57 36.9 C 101 H 17 131/78 94 Room Air 04/04/24 07:33 105 H 04/04/24 04:02 36.5 C 103 H 18 138/87 92 Room Air Laboratory Results 04/04/24 05:51 04/04/24 05:51 PG Care Time/CCT Total # of Minutes Spent Total Time Spent with Patient: Total time spent is greater than 50% in coordination of care (as documented) at patient's floor/unit and/or counseling patient: Coding Level of Care Code 80037 SUB INP/OBS CARE 2/35MIN Diagnoses Sepsis A41.9 Cellulitis of left lower leg L03.116 Unwitnessed fall R29.6 Melanoma C43.9 Pulmonary embolism I26.99 Chronic kidney disease, stage 3 N18.3 Encephalopathy G93.40
[2024-04-05 06:22] LABS: Basophils # (auto) 0.04 K/uL (0.00-0.20); Basophils % (auto) 0.8 %; Eosinophils # (auto) 0.61 K/uL (0.00-0.50); Eosinophils % (auto) 12.4 %; Hematocrit (blood only) 37.4 % (42.0-52.0); Lymphocytes # (auto) 1.61 K/uL (1.20-3.40); Lymphocytes % (auto) 32.8 %; Mean Corpuscular Hemoglobin 30.8 pg (25.0-34.0); Mean Corpuscular Hgb Conc 32.1 g/dL (32.0-36.0); Mean Corpuscular Volume 95.9 fL (80.0-100.0); Mean Platelet Volume 9.6 fL (9.4-12.4); Monocytes # (auto) 0.49 K/uL (0.11-0.59); Neutrophils # (auto) 2.16 K/uL (1.40-6.50); Platelet Count 185 K/uL (130-400); RDW Coefficient of Variation 15.7 % (11.5-14.5); RDW Standard Deviation 55.8 fL (36.4-46.3); White Blood Count 4.91 K/ul (4.8-10.8)
[2024-04-05 06:41] LABS: BUN Creatinine Ratio 17.1 (10-20); Calcium 8.9 mg/dl (8.6-10.3); Creatinine Clr Calc Pharmacy 71.7 ml/min; Potassium 3.2 mmol/L (3.5-5.1)
--- NOTE | 2024-04-05 12:44 | Hospitalist Progress Note ---
Date of Service April 05, 2024 Assessment & Plan (1) Sepsis: Plan: Suspected on admission. With hypotension consistent with septic shock transiently requiring pressor support. He is now off pressors. Vancomycin and cefepime were Rocephin and now oral Augmentin. Left lower extremity cellulitis is improving. CT scan of the lower extremity is negative for abscess (2) Cellulitis of left lower leg: Plan: Chronic underlying stasis dermatitis with recurrent cellulitis. MRSA swab is negative. Vancomycin and cefepime were switched over to Rocephin and now on oral Augmentin. Improving (3) Unwitnessed fall: Plan: Multiple Falls on Warfarin. Coumadin has been discontinued. Supportive care. OT and PT while hospitalized. Known left chest hematoma from recent fall (4) Melanoma: Plan: Stage III. S/p surgical excision and Keytruda adjuvant therapy. 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 This was treated with steroids and patient returned to 75-80% of his baseline per family, but is gradually declined somewhat since his prior discharge. PET 01/2023 with no evidence of mets. Last CTA/P 03/24/[address] 01/23/2024 without evidence of metastasis (5) Pulmonary embolism: Plan: History of PE 2021. Apparently he has been on Coumadin since that time. Due to his multiple recent falls and left chest hematoma, the Coumadin has been discontinued. (6) Chronic kidney disease, stage 3: Plan: Monitor intake and output. 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 Supportive care. Plan Placement pending at [facility]. The family does not wish to pursue hospice care at this time. Palliative care consultation appreciated Admission and Anticipated Discharge Date Admission Date: April 01, 2024 Subjective Easily awakened from sleep. He is conversant but remains disoriented. I spoke to his , Sunitha, by phone. She agrees that he will need placement at [facility] at the time of discharge when arrangements are finalized. Parenteral Rocephin switched to oral Augmentin for another week. The left lower extremity cellulitis is improving. Coumadin has been discontinued Review of Systems 2 Review of Systems: The patient is unable to reliably answer any questions regarding review of systems at this time Physical Exam 2 Physical Exam: General-alert but confused. No fever HEENT-head atraumatic and normocephalic, pupils equal and reactive to light, extraocular muscles intact Neck-no lymphadenopathy or thyromegaly, trachea midline Chest-clear to auscultation. No rales, wheezing or rhonchi Cardiac-regular rate and rhythm, normal S1 and S2 Abdomen-normal bowel sounds, no hepatosplenomegaly Extremities-no cyanosis, clubbing, or edema. Chronic stasis dermatitis with cellulitis left lower extremity below the knee Neuro-cranial nerves II through XII intact, motor and sensory function within normal limits, strength symmetrical, no focal deficits Psych-awake and alert but confused. Results & Data Results & Data Vital Signs (Past 12 Hours) Vital Signs Temp Pulse Pulse Resp BP BP Pulse Ox 04/05/24 11:44 36.7 C 96 H 18 131/77 93 04/05/24 08:00 36.8 C 95 H 18 153/83 H 94 04/05/24 07:00 97 H 04/05/24 04:09 36.8 C 98 H 18 143/74 H 92 O2 Del Method 04/05/24 11:44 Room Air 04/05/24 08:00 Room Air 04/05/24 07:00 04/05/24 04:09 Room Air Laboratory Results 04/05/24 05:38 04/05/24 05:38 PG Care Time/CCT Total # of Minutes Spent Total Time Spent with Patient: Total time spent is greater than 50% in coordination of care (as documented) at patient's floor/unit and/or counseling patient: Coding Level of Care Code 81189 SUB INP/OBS CARE 2/35MIN Diagnoses Sepsis A41.9 Cellulitis of left lower leg L03.116 Unwitnessed fall R29.6 Melanoma C43.9 Pulmonary embolism I26.99 Chronic kidney disease, stage 3 N18.3 Encephalopathy G93.40
[2024-04-05] MEDS: AMOXICILLIN/CLAVULANATE 875 MG TAB PO SCH (17:29)
[2024-04-06 07:20] LABS: Basophils # (auto) 0.04 K/uL (0.00-0.20); Basophils % (auto) 0.9 %; Eosinophils # (auto) 0.55 K/uL (0.00-0.50); Eosinophils % (auto) 12.2 %; Hematocrit (blood only) 38.8 % (42.0-52.0); Hemoglobin 12.5 g/dl (14.0-18.0); Immature Granulocytes # (auto) 0.01 K/uL (0.01-0.20); Immature Granulocytes % (auto) 0.2 %; Lymphocytes % (auto) 35.6 %; Mean Corpuscular Hemoglobin 30.9 pg (25.0-34.0); Mean Corpuscular Hgb Conc 32.2 g/dL (32.0-36.0); Mean Platelet Volume 9.3 fL (9.4-12.4); Monocytes # (auto) 0.49 K/uL (0.11-0.59); Monocytes % (auto) 10.9 %; Neutrophils % (auto) 40.2 %; Platelet Count 192 K/uL (130-400); RDW Coefficient of Variation 15.6 % (11.5-14.5); RDW Standard Deviation 55.3 fL (36.4-46.3); Red Blood Count 4.04 M/uL (4.70-6.10); White Blood Count 4.49 K/ul (4.8-10.8)
[2024-04-06 07:37] LABS: BUN Creatinine Ratio 15.3 (10-20); Calcium 8.8 mg/dl (8.6-10.3); Creatinine Clr Calc Pharmacy 88.4 ml/min; Potassium 3.3 mmol/L (3.5-5.1)
--- NOTE | 2024-04-06 11:27 | Hospitalist Progress Note ---
Date of Service April 06, 2024 Assessment & Plan (1) Sepsis: Plan: Suspected on admission. With hypotension consistent with septic shock transiently requiring pressor support. He is now off pressors. Vancomycin and cefepime were Rocephin and now oral Augmentin. Left lower extremity cellulitis is improving. CT scan of the lower extremity is negative for abscess (2) Cellulitis of left lower leg: Plan: Chronic underlying stasis dermatitis with recurrent cellulitis. MRSA swab is negative. Vancomycin and cefepime were switched over to Rocephin and now on oral Augmentin. Improving (3) Unwitnessed fall: Plan: Multiple Falls on Warfarin. Coumadin has been discontinued. Supportive care. OT and PT while hospitalized. Known left chest hematoma from recent fall (4) Melanoma: Plan: Stage III. S/p surgical excision and Keytruda adjuvant therapy. 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 This was treated with steroids and patient returned to 75-80% of his baseline per family, but is gradually declined somewhat since his prior discharge. PET 01/2023 with no evidence of mets. Last CTA/P 03/24/[address] 01/23/2024 without evidence of metastasis (5) Pulmonary embolism: Plan: History of PE 2021. Apparently he has been on Coumadin since that time. Due to his multiple recent falls and left chest hematoma, the Coumadin has been discontinued. (6) Chronic kidney disease, stage 3: Plan: Monitor intake and output. 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 Supportive care. Seems to be improving Plan Placement pending at [facility]. The family does not wish to pursue hospice care at this time. Palliative care consultation appreciated Admission and Anticipated Discharge Date Admission Date: April 01, 2024 Subjective Awake, alert, pleasant. He is asking for a recliner to be placed in his room so he can sleep and at what she does at home. He is on oral Augmentin at this time for the left lower extremity cellulitis. Antibiotic day 5. Septic shock has resolved. He is status post pressor support on admission. Coumadin has been discontinued indefinitely due to presence of left chest wall hematoma and frequent falls. His mental status has improved since admission. He has checkpoint inhibitor encephalopathy probably from previous Keytruda therapy. Anticipate eventual discharge to [facility] Review of Systems 2 Review of Systems: The patient is unable to reliably answer any questions regarding review of systems at this time Physical Exam 2 Physical Exam: General-alert but confused. No fever HEENT-head atraumatic and normocephalic, pupils equal and reactive to light, extraocular muscles intact Neck-no lymphadenopathy or thyromegaly, trachea midline Chest-clear to auscultation. No rales, wheezing or rhonchi Cardiac-regular rate and rhythm, normal S1 and S2 Abdomen-normal bowel sounds, no hepatosplenomegaly Extremities-no cyanosis, clubbing, or edema. Chronic stasis dermatitis with cellulitis left lower extremity below the knee Neuro-cranial nerves II through XII intact, motor and sensory function within normal limits, strength symmetrical, no focal deficits Psych-awake and alert but confused. Results & Data Results & Data Vital Signs (Past 12 Hours) Vital Signs Temp Pulse Resp BP Pulse Ox O2 Del Method 04/06/24 07:57 36.6 C 96 H 16 149/74 H 93 Room Air 04/06/24 03:54 37.1 C 97 H 20 144/82 H 92 Room Air 04/05/24 23:48 36.3 C L 95 H 20 151/87 H 93 Room Air Laboratory Results 04/06/24 06:48 04/06/24 06:48 PG Care Time/CCT Total # of Minutes Spent Total Time Spent with Patient: Total time spent is greater than 50% in coordination of care (as documented) at patient's floor/unit and/or counseling patient: Coding Level of Care Code 10072 SUB INP/OBS CARE 2/35MIN Diagnoses Sepsis A41.9 Cellulitis of left lower leg L03.116 Unwitnessed fall R29.6 Melanoma C43.9 Pulmonary embolism I26.99 Chronic kidney disease, stage 3 N18.3 Encephalopathy G93.40
[2024-04-07] MEDS: ONDANSETRON INJ 2 MG/ML 2 ML VIAL IV STA (03:55)
[2024-04-07 06:20] LABS: Basophils # (auto) 0.05 K/uL (0.00-0.20); Eosinophils # (auto) 0.56 K/uL (0.00-0.50); Hematocrit (blood only) 39.9 % (42.0-52.0); Hemoglobin 13.2 g/dl (14.0-18.0); Immature Granulocytes # (auto) 0.01 K/uL (0.01-0.20); Immature Granulocytes % (auto) 0.2 %; Lymphocytes # (auto) 1.81 K/uL (1.20-3.40); Lymphocytes % (auto) 35.6 %; Mean Corpuscular Hemoglobin 31.1 pg (25.0-34.0); Mean Corpuscular Hgb Conc 33.1 g/dL (32.0-36.0); Mean Corpuscular Volume 94.1 fL (80.0-100.0); Mean Platelet Volume 9.1 fL (9.4-12.4); Monocytes # (auto) 0.57 K/uL (0.11-0.59); Monocytes % (auto) 11.2 %; Neutrophils # (auto) 2.09 K/uL (1.40-6.50); Platelet Count 199 K/uL (130-400); RDW Coefficient of Variation 15.4 % (11.5-14.5); RDW Standard Deviation 53.6 fL (36.4-46.3); Red Blood Count 4.24 M/uL (4.70-6.10); White Blood Count 5.09 K/ul (4.8-10.8)
[2024-04-07 06:34] LABS: BUN Creatinine Ratio 14.1 (10-20); Creatinine Clr Calc Pharmacy 88.7 ml/min; Potassium 3.7 mmol/L (3.5-5.1)
[2024-04-07] MEDS: METOPROLOL SUCC 50MG EXT REL TAB PO SCH (10:55)
--- NOTE | 2024-04-07 13:48 | XRay Report ---
KUB HISTORY: Acute generalized abdominal pain abd pain COMPARISON: CT abdomen and pelvis 04/01/2024 FINDINGS: Nonobstructive bowel gas pattern. Cardiomegaly with persistent left basilar opacities. Cath eter projects over the midline pelvis. No renal calculi. No ureteral calculi. No pneumoperitoneum or pneumatosis. Degenerative and postoperative changes of the spine. No fracture. IMPRESSION: Nonobstructive bowel gas pattern. ACT 112: Negative or not required by law. The above report was generated using voice recognition software. It may contain grammatical, syntax o r spelling errors. Electronically signed by: Dominick George M.D. 04/07/2024 1:46 PM
--- NOTE | 2024-04-07 15:30 | Hospitalist Progress Note ---
Date of Service April 07, 2024 Assessment & Plan (1) Sepsis: Plan: Suspected on admission. With hypotension consistent with septic shock transiently requiring pressor support. He is now off pressors. Vancomycin and cefepime were Rocephin and now oral Augmentin. Left lower extremity cellulitis is improving. CT scan of the lower extremity is negative for abscess (2) Cellulitis of left lower leg: Plan: Chronic underlying stasis dermatitis with recurrent cellulitis. MRSA swab is negative. Vancomycin and cefepime were switched over to Rocephin and now on oral Augmentin. Improving (3) Unwitnessed fall: Plan: Multiple Falls on Warfarin. Coumadin has been discontinued. Supportive care. OT and PT while hospitalized. Known left chest hematoma from recent fall (4) Melanoma: Plan: Stage III. S/p surgical excision and Keytruda adjuvant therapy. 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 This was treated with steroids and patient returned to 75-80% of his baseline per family, but is gradually declined somewhat since his prior discharge. PET 01/2023 with no evidence of mets. Last CTA/P 03/24/[address] 01/23/2024 without evidence of metastasis (5) Pulmonary embolism: Plan: History of PE 2021. Apparently he has been on Coumadin since that time. Due to his multiple recent falls and left chest hematoma, the Coumadin has been discontinued. (6) Chronic kidney disease, stage 3: Plan: Monitor intake and output. 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 Supportive care. Seems to be improving Plan Placement pending at [facility]. The family does not wish to pursue hospice care at this time. Palliative care consultation appreciated Admission and Anticipated Discharge Date Admission Date: April 01, 2024 Subjective Alert. He is oriented to name and place. Mental status appears to have improved. Family is at the bedside. He is complaining of vague abdominal discomfort with no significant findings on examination. KUB obtained which is unremarkable. Review of Systems 2 Review of Systems: Constitutionalno fever or chills ENTno blurred vision, no double vision, no epistaxis, no sore throat Respiratoryno cough, no wheezing, no shortness of breath Cardiacno palpitations, no chest pain, no syncope Ross nausea, vomiting, diarrhea, melena, hematochezia. Vague lower mid abdominal discomfort GUno urinary retention, no urinary incontinence, no dysuria, no hematuria Musculoskeletalno joint pain, no muscle tenderness Skinno bruising, no rashes, no pruritus Neurono isolated weakness, no paresthesia, no weakness Psychno depression, no anxiety Physical Exam 2 Physical Exam: General-alert. No distress. Oriented x 2. No fever HEENT-head atraumatic and normocephalic, pupils equal and reactive to light, extraocular muscles intact Neck-no lymphadenopathy or thyromegaly, trachea midline Chest-clear to auscultation. No rales, wheezing or rhonchi Cardiac-regular rate and rhythm, normal S1 and S2 Abdomen-normal bowel sounds, no hepatosplenomegaly. No focal tenderness. No rebound or guarding. No masses Extremities-no cyanosis, clubbing, or edema. Chronic stasis dermatitis with cellulitis left lower extremity below the knee Neuro-cranial nerves II through XII intact, motor and sensory function within normal limits, strength symmetrical, no focal deficits Psych-awake and alert but confused. Results & Data Results & Data Vital Signs (Past 12 Hours) Vital Signs Temp Pulse Pulse Resp BP BP Pulse Ox 04/07/24 13:50 84 04/07/24 11:29 36.6 C 81 16 125/71 92 04/07/24 11:00 04/07/24 07:55 95 H 04/07/24 07:46 37.2 C 94 H 18 127/73 92 04/07/24 03:55 36.6 C 87 20 156/81 H 93 O2 Del Method 04/07/24 13:50 04/07/24 11:29 Room Air 04/07/24 11:00 Room Air 04/07/24 07:55 04/07/24 07:46 Room Air 04/07/24 03:55 Room Air Laboratory Results 04/07/24 05:53 04/07/24 05:53 PG Care Time/CCT Total # of Minutes Spent Total Time Spent with Patient: Total time spent is greater than 50% in coordination of care (as documented) at patient's floor/unit and/or counseling patient: Coding Level of Care Code 77638 SUB INP/OBS CARE 2/35MIN Diagnoses Sepsis A41.9 Cellulitis of left lower leg L03.116 Unwitnessed fall R29.6 Melanoma C43.9 Pulmonary embolism I26.99 Chronic kidney disease, stage 3 N18.3 Encephalopathy G93.40
[2024-04-07] MEDS: MoRPHine SULFATE 2 MG/ML CARP IV STA (17:29)
[2024-04-08 06:03] LABS: Basophils # (auto) 0.06 K/uL (0.00-0.20); Basophils % (auto) 1.1 %; Eosinophils # (auto) 0.64 K/uL (0.00-0.50); Eosinophils % (auto) 12.1 %; Hematocrit (blood only) 39.6 % (42.0-52.0); Immature Granulocytes # (auto) 0.02 K/uL (0.01-0.20); Immature Granulocytes % (auto) 0.4 %; Lymphocytes # (auto) 1.93 K/uL (1.20-3.40); Lymphocytes % (auto) 36.5 %; Mean Corpuscular Hgb Conc 32.8 g/dL (32.0-36.0); Mean Corpuscular Volume 94.5 fL (80.0-100.0); Mean Platelet Volume 9.7 fL (9.4-12.4); Monocytes # (auto) 0.63 K/uL (0.11-0.59); Monocytes % (auto) 11.9 %; Neutrophils # (auto) 2.01 K/uL (1.40-6.50); Platelet Count 217 K/uL (130-400); RDW Coefficient of Variation 15.2 % (11.5-14.5); Red Blood Count 4.19 M/uL (4.70-6.10); White Blood Count 5.29 K/ul (4.8-10.8)
[2024-04-08 06:23] LABS: BUN Creatinine Ratio 13.6 (10-20); Calcium 9.1 mg/dl (8.6-10.3); Creatinine Clr Calc Pharmacy 85.6 ml/min; Potassium 3.9 mmol/L (3.5-5.1)
--- NOTE | 2024-04-08 15:55 | Hospitalist Progress Note ---
Date of Service April 08, 2024 Assessment & Plan (1) Sepsis: Plan: Suspected on admission. With hypotension consistent with septic shock transiently requiring pressor support. He is now off pressors. Vancomycin and cefepime were Rocephin and now oral Augmentin. Left lower extremity cellulitis is improving. CT scan of the lower extremity is negative for abscess (2) Cellulitis of left lower leg: Plan: Chronic underlying stasis dermatitis with recurrent cellulitis. MRSA swab is negative. Vancomycin and cefepime were switched over to Rocephin and now on oral Augmentin. Improving and almost resolved (3) Unwitnessed fall: Plan: Multiple Falls on Warfarin. Coumadin has been discontinued. Supportive care. OT and PT while hospitalized. Known left chest hematoma from recent fall (4) Melanoma: Plan: Stage III. S/p surgical excision and Keytruda adjuvant therapy. 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 This was treated with steroids and patient returned to 75-80% of his baseline per family, but is gradually declined somewhat since his prior discharge. PET 01/2023 with no evidence of mets. Last CTA/P 03/24/[address] 01/23/2024 without evidence of metastasis (5) Pulmonary embolism: Plan: History of PE 2021. Apparently he has been on Coumadin since that time. Due to his multiple recent falls and left chest hematoma, the Coumadin has been discontinued. (6) Chronic kidney disease, stage 3: Plan: Monitor intake and output. 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 Supportive care. Seems to be improving Plan Placement at [facility] versus home with home health. Case management working on it Admission and Anticipated Discharge Date Admission Date: April 01, 2024 Subjective Patient was seen and examined at 12 PM. He denies any chest pain or shortness of breath. Feels well overall. Review of Systems Review of Systems: All systems reviewed & are unremarkable except as noted in Subjective Physical Exam Physical Exam: General: Awake, conversant Heart: S1, S2/regular rate and rhythm, no murmur rubs or gallops Lungs: Clear to auscultation bilaterally. Normal effort Abdomen: Soft/nontender/nondistended. No hepatosplenomegaly Extremities: No clubbing/cyanosis. No edema. Left lower extremity cellulitis improved Behavior: Appropriate, cooperative Results & Data Results & Data Vital Signs (Past 12 Hours) Vital Signs Temp Pulse Pulse Pulse Resp BP BP 04/08/24 15:08 36.6 C 105 H 79 20 143/81 H 115/67 04/08/24 14:00 79 04/08/24 11:48 36.6 C 79 20 115/67 04/08/24 08:00 04/08/24 07:32 36.5 C 85 18 143/81 H 04/08/24 07:10 81 04/08/24 04:01 36.4 C L 79 20 133/82 Pulse Ox O2 Del Method 04/08/24 15:08 90 04/08/24 14:00 04/08/24 11:48 90 Room Air 04/08/24 08:00 Room Air 04/08/24 07:32 90 Room Air 04/08/24 07:10 04/08/24 04:01 93 Room Air Laboratory Results Abnormal lab results 04/08/24 Range/Units 05:22 RBC 4.19 L (4.70-6.10) M/uL Hgb 13.0 L (14.0-18.0) g/dl Hct 39.6 L (42.0-52.0) % RDW Std Deviation 53.0 H (36.4-46.3) fL RDW Coeff of Lisbeth 15.2 H (11.5-14.5) % Casey # (Auto) 0.63 H (0.11-0.59) K/uL Eos # (Auto) 0.64 H (0.00-0.50) K/uL PG Care Time/CCT Total # of Minutes Spent Total Time Spent with Patient: Total time spent is greater than 50% in coordination of care (as documented) at patient's floor/unit and/or counseling patient: Coding Level of Care Code 61516 SUB INP/OBS CARE 2/35MIN Diagnoses Sepsis A41.9 Cellulitis of left lower leg L03.116 Unwitnessed fall R29.6 Melanoma C43.9 Pulmonary embolism I26.99 Chronic kidney disease, stage 3 N18.3 Encephalopathy G93.40
[2024-04-08 23:16] VITALS: O2SAT 92
[2024-04-09 06:23] LABS: Basophils # (auto) 0.08 K/uL (0.00-0.20); Basophils % (auto) 1.4 %; Eosinophils # (auto) 0.55 K/uL (0.00-0.50); Eosinophils % (auto) 9.9 %; Hematocrit (blood only) 40.7 % (42.0-52.0); Hemoglobin 13.2 g/dl (14.0-18.0); Immature Granulocytes # (auto) 0.01 K/uL (0.01-0.20); Immature Granulocytes % (auto) 0.2 %; Lymphocytes # (auto) 2.05 K/uL (1.20-3.40); Lymphocytes % (auto) 36.9 %; Mean Corpuscular Hemoglobin 30.9 pg (25.0-34.0); Mean Corpuscular Hgb Conc 32.4 g/dL (32.0-36.0); Mean Corpuscular Volume 95.3 fL (80.0-100.0); Mean Platelet Volume 9.5 fL (9.4-12.4); Monocytes # (auto) 0.76 K/uL (0.11-0.59); Monocytes % (auto) 13.7 %; Neutrophils % (auto) 37.9 %; Platelet Count 195 K/uL (130-400); RDW Coefficient of Variation 15.3 % (11.5-14.5); RDW Standard Deviation 54.2 fL (36.4-46.3); Red Blood Count 4.27 M/uL (4.70-6.10); White Blood Count 5.55 K/ul (4.8-10.8)
[2024-04-09 06:53] LABS: BUN Creatinine Ratio 13.6 (10-20); Calcium 9.2 mg/dl (8.6-10.3); Potassium 4.1 mmol/L (3.5-5.1)
[2024-04-09 07:54] VITALS: BP 117/67; RESP 17; TEMP 98.4
--- NOTE | 2024-04-09 10:59 | Discharge Summary ---
Date of Service April 09, 2024 Admission HPI Per Admitting Provider Tio Maldonado is a 78-year-old male who presented with lethargy and confusion. He was in route to an outside appointment when he became minimally responsive, EMS was called. In the ER patient is hypotensive and lethargic. History is collected with the assistance of patient's and daughter at the bedside patient is not able to give collateral at time of initial assessment. Per family patient had been gradually declining since his prior discharge several weeks ago but returned to about 75% of his normal baseline after last discharge before rapidly declining over this past weekend. They note that he has had 5 falls since Monday, 2 of which were witnessed and were without head strike 3 of which were unwitnessed. Patient has been more lethargic and sedated which has greatly worsened in the last day and a half. Patient had been complaining of fevers and chills. He has chronic right lower quadrant abdominal pain which does not seem to have changed, and also has chronic nausea/nonbloody nonbilious emesis for several months which has been present over the weekend but again seems somewhat unchanged from prior. Had complained of left lower extremity warmth, tenderness and swelling. This began Monday, approximately 3 days ago and has progressively worsened. Family reports he has not been taking any antibiotics over the weekend last antibiotics were around his prior discharge. He had previously been on steroids for Keytruda induced encephalopathy, no steroids since that time. They report that he has not had a heart attack or HI to their knowledge. Kidney numbers had risen while on Keytruda, although they believe that they improved back to normal after this was stopped. Otherwise denies kidney disease. No tobacco use, no alcohol use Reports sensitivity and easy confusion on sedating and narcotic medications, no known rash/hives allergies to antibiotics CODE STATUS: DNR/DNI, no intubation under any circumstances. Would not want dialysis. Is okay with ICU admission, vasopressors, and central lines for treatment of acute infection and hypotension. Admission Exam Per Admitting Provider General: LEthargic, arouses transiently to voice but peralta snot answer questions. Moans to palpation of RLQ abdomen. Appears critically ill. HEENT: Atraumatic, normocephalic. Pupils equally reactive to light. Vision/hearing testing limited by mental status Pulm: Diminished, coarse in the bases but no wheezes/rhonchi are noted. Symmetrical chest rise. No increased work of breathing. No respiratory distress. Cardiac: Tachycardic, -mrg radial pulses intact and symmetrical. Abdominal: Softly distended. Patient moans on right lower quadrant palpation. Ext: Moans on palpation of L hip. LLE with anterior disla grade 3 ulcer with some purulent discharge and surrounding erythema, warmth, tenderness. Strength/sensation testing is not able to be performed due to mental status. Right lower extremity with scant areas of slightly increased pinkness but no warmth or tenderness Principal Diagnosis Sepsis with septic shock due to left lower extremity cellulitis Unwitnessed fall History of multiple falls. Coumadin discontinued History of PE in 2021. Has been on Coumadin since. Discontinued due to multiple falls. 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 Normal effort Abdomen: Soft/nontender/nondistended. No hepatosplenomegaly Extremities: No clubbing/cyanosis. No edema. Left lower extremity cellulitis improved Behavior: Appropriate, cooperative Discharge Data Allergies Allergy/AdvReac Type Severity Reaction Status Date / Time gabapentin Allergy Intermediate Rash Verified 02/24/24 09:51 tramadol Allergy Intermediate Rash and Verified 02/24/24 09:51 itchiness hydrocodone Allergy Mild itchy Verified 02/24/24 09:51 oxycodone Allergy Mild itchy Verified 02/24/24 09:51 carbamazepine Allergy Unknown Unknown Verified 02/24/24 09:51 ciprofloxacin Allergy Unknown Unknown Verified 02/24/24 09:51 Consultations 04/01/24 13:43 ED Decision to Admit Stat 04/02/24 15:37 Consult Palliative Care Routine Ordered Studies 04/01/24 13:46 CT Abd and Pelvis [CT abd pelvis wo con] Stat CT cervical spine wo con Stat CT head/brain wo con Stat 04/01/24 13:59 CT leg [CT femur LT wo con] Stat 04/01/24 14:06 CT chest diagnostic wo con Stat 04/01/24 15:04 CT leg [CT tib/fib LT wo con] Urgent Hospital Course (1) Sepsis: Suspected on admission. With hypotension consistent with septic shock transiently requiring pressor support. He is now off pressors. Vancomycin and cefepime were Rocephin and now oral Augmentin. Left lower extremity cellulitis is improving. CT scan of the lower extremity is negative for abscess (2) Cellulitis of left lower leg: Chronic underlying stasis dermatitis with recurrent cellulitis. MRSA swab is negative. Vancomycin and cefepime were switched over to Rocephin and then to oral Augmentin. Improving and almost resolved. Discontinue Augmentin Upon discharge (3) Unwitnessed fall: Multiple Falls on Warfarin. Coumadin has been discontinued. Supportive care. OT and PT while hospitalized. Known left chest hematoma from recent fall (4) Melanoma: Stage III. S/p surgical excision and Keytruda adjuvant therapy. 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 This was treated with steroids and patient returned to 75-80% of his baseline per family, but is gradually declined somewhat since his prior discharge. PET 01/2023 with no evidence of mets. Last CTA/P 03/24/[address] 01/23/2024 without evidence of metastasis (5) Pulmonary embolism: History of PE 2021. Apparently he has been on Coumadin since that time. Due to his multiple recent falls and left chest hematoma, the Coumadin has been discontinued. 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 Supportive care. Seems to be improving. Per , patient is back to baseline now Plan Discharge to home with home health Total Time Total Time Spent Total Time Spent (In Minutes): 35 Discharge Plan Discharge Items Patient Disposition: Home - Home Health Services Reason For Visit: SEPSIS, SUSPECTED SSTI Discharge Diagnosis: Sepsis with septic shock due to left lower extremity cellulitis Unwitnessed fall History of multiple falls. Coumadin discontinued History of PE in 2021. Has been on Coumadin since. Discontinued due to multiple falls. 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 CKD stage III Activity: Resume your previous activity Non-emergency contact: Primary Care Provider Call non-emergency contact if: you have any medication questions and your symptoms worsen Follow-up/Referrals: Stef Encarnacion MD [Primary Care Provider] - (PLEASE CALL YOUR PRIMARY CARE PROVIDER TO SCHEDULE A HOSPITAL DISCHARGE FOLLOW-UP APPOINTMENT WITHIN 7-10 DAYS) Diet: Regular Addtl Attending Provider Instructions: Advised to follow-up with PCP in 1 week Pending Studies at Discharge: No Stand-Alone Forms: My [facility], Smoking Cessation Medications and DC Order Prescriptions: Continued pregabalin 50 mg capsule 50 mg PO DAILY allopurinol 100 mg tablet 100 mg PO QAM acetaminophen 650 mg Tablet Extended Release 650 mg PO Q4H PRN (Reason: Pain) ferrous sulfate 325 mg (65 mg iron) Tablet,Delayed Release (Dr/Ec) 325 mg PO BIDM Qty: 60 0RF metoprolol succinate 50 mg Tablet Extended Release 24 Hr 50 mg PO QAM Qty: 30 0RF sennosides-docusate sodium [Senokot-S] 8.6-50 mg Tablet 1 tab PO BID Qty: 60 0RF polyethylene glycol 3350 [Miralax] 17 gram powder in packet 17 g PO QAM furosemide 40 mg tablet 40 mg PO DAILY PRN (Reason: weight gain/swelling) potassium citrate 10 mEq (1,080 mg) tablet extended release 10 meq PO BID Rx Instructions: TAKE 1 TABLET BY MOUTH TWICE DAILY metoclopramide HCl [Reglan] 5 mg tablet 5 mg PO BID PRN (Reason: nausea and vomiting) Qty: 6 0RF Discontinued warfarin 5 mg tablet 5 mg PO DAILY Rx Instructions: 5mg daily or UD per [facility] orally daily; Discharge Orders: Discharge Order (Routine); Ordered 04/09/24 Ordered By: Geovanni South/Other Patient Handouts: Cellulitis Dc, Understanding Sepsis, ED Encephalitis, Viral Admission Data Admit Date/Time: 04/01/24 14:41 Attending Provider: Geovanni Schmidt Admit Provider: Kimo Laurent Primary Care Provider: Stef Encarnacion Other Providers: Bolivar,Care; Jesusita Muñoz,Rehab; Kimo Laurent; Marie Hernandez Other Interventions: Discharge Summary Assessment (RN) Last Done: 04/09/24 11:04
[2024-04-09 11:05] VITALS: PULSE 105
== END 2024-04-09 12:51 | disposition home health service (06) | DRG 871 ==
LOC: ED 11:25 → SUATTDRO 14:41 → 1E 14:41 → 2W 04-02 17:31

== ENCOUNTER 2024-04-17 14:34 | Inpatient (IN) ==
--- NOTE | 2024-04-17 15:43 | XRay Report ---
XR chest 1V not portable HISTORY: 78 years-old Male dehydrated acute shortness of breath COMPARISON: 04/01/2024 TECHNIQUE: AP view the chest FINDINGS: Cardiac mediastinal and hilar silhouettes are unchanged. The low position of the right IJ Infuse-a-Po rt catheter. Only vascular congestion. No pneumothorax, or large pleural effusion. Mild chronic inter stitial coarsening. Punctate calcified granuloma suggested within the left midlung. Bilateral shoulde r arthroplasties. IMPRESSION: Cardiomegaly with suggestion of pulmonary vascular congestion. ACT 112: Negative or not required by law. The above report was generated using voice recognition software. It may contain grammatical, syntax o r spelling errors. Electronically signed by: Dominick George M.D. 04/17/2024 3:41 PM
[2024-04-17 16:00] LABS: Basophils # (auto) 0.07 K/uL (0.00-0.20); Basophils % (auto) 0.9 %; Eosinophils # (auto) 0.45 K/uL (0.00-0.50); Hematocrit (blood only) 44.2 % (42.0-52.0); Hemoglobin 14.2 g/dl (14.0-18.0); Immature Granulocytes # (auto) 0.01 K/uL (0.01-0.20); Immature Granulocytes % (auto) 0.1 %; Lymphocytes # (auto) 2.45 K/uL (1.20-3.40); Lymphocytes % (auto) 32.8 %; Mean Corpuscular Hemoglobin 31.1 pg (25.0-34.0); Mean Corpuscular Hgb Conc 32.1 g/dL (32.0-36.0); Mean Corpuscular Volume 96.7 fL (80.0-100.0); Mean Platelet Volume 9.9 fL (9.4-12.4); Monocytes # (auto) 1.07 K/uL (0.11-0.59); Monocytes % (auto) 14.3 %; Neutrophils # (auto) 3.43 K/uL (1.40-6.50); Neutrophils % (auto) 45.9 %; Platelet Count 216 K/uL (130-400); RDW Coefficient of Variation 15.8 % (11.5-14.5); RDW Standard Deviation 56.6 fL (36.4-46.3); Red Blood Count 4.57 M/uL (4.70-6.10); White Blood Count 7.48 K/ul (4.8-10.8)
[2024-04-17 16:22] LABS: Albumin Level 3.1 gm/dl (3.4-5.0); Anion Gap 8 (3-11); Carbon Dioxide 30 mmol/L (21-32); Chloride 101 mmol/L (98-107); Potassium 3.8 mmol/L (3.5-5.1); Sodium 139 mmol/L (136-145)
[2024-04-17 16:28] LABS: Alanine Aminotransferase 21 U/L (7-52); Albumin Globulin Ratio 1.1 (0.9-2); Alkaline Phosphatase 119 U/L (34-104); Aspartate Aminotransferase 73 U/L (13-39); BUN Creatinine Ratio 12.8 (10-20); Blood Urea Nitrogen 17 mg/dl (6-23); Globulin 2.8 gm/dl (2.5-4.0); Glucose 105 mg/dl (70-99(Fasting)); Total Protein 5.9 gm/dl (6.0-8.3)
--- NOTE | 2024-04-17 16:34 | Emergency Department Note ---
History of Present Illness General Chief complaint: Dehydration Stated complaint: DEHYDRATED, CAN'T EAT Time Seen by Provider: 04/17/24 16:01 History of Present Illness Provider complaint: Nausea and vomiting 78-year-old male was brought to the emergency department with his for nausea and vomiting. states that the patient has not been eating and he been having nausea and vomiting for the last month. She states he is increasingly tired and confused. She states he has been in and out of the hospital for the last 4 months. Home Medications Medication Instructions Recorded Confirmed Type acetaminophen 650 mg 650 mg PO Q4H PRN Pain 01/27/24 04/01/24 History tablet,extended release allopurinol 100 mg tablet 0 mg PO QAM 01/27/24 04/17/24 History sennosides 8.6 mg-docusate sodium 1 tab PO BID #60 tabs 02/06/24 04/17/24 Rx 50 mg tablet (Senokot-S) polyethylene glycol 3350 17 gram 17 g PO QAM 02/10/24 04/17/24 History oral powder packet (Miralax) furosemide 40 mg tablet 40 mg PO DAILY PRN weight 02/24/24 04/17/24 History gain/swelling pregabalin 50 mg capsule 50 mg PO DAILY 03/11/24 04/17/24 History metoclopramide HCl 5 mg tablet 5 mg PO BID PRN nausea and 03/24/24 04/17/24 Rx (Reglan) vomiting #6 tabs potassium citrate 10 mEq (1,080 0 meq PO BID 03/24/24 04/17/24 History mg) tablet,extended release ferrous sulfate 325 mg (65 mg 0 mg PO BIDM 04/17/24 04/17/24 History iron) tablet,delayed release metoprolol succinate 50 mg 0 mg PO QAM 04/17/24 04/17/24 History tablet,extended release 24 hr Allergies Allergy/AdvReac Type Severity Reaction Status Date / Time gabapentin Allergy Intermediate Rash Verified 02/24/24 09:51 tramadol Allergy Intermediate Rash and Verified 02/24/24 09:51 itchiness hydrocodone Allergy Mild itchy Verified 02/24/24 09:51 oxycodone Allergy Mild itchy Verified 02/24/24 09:51 carbamazepine Allergy Unknown Unknown Verified 02/24/24 09:51 ciprofloxacin Allergy Unknown Unknown Verified 02/24/24 09:51 Past Med/Surg History Problem List (Updated 04/17/24 @ 22:20 by Jag Lira MD) Hypomagnesemia (Acute) Vomiting Pleural effusion Weakness Encephalopathy Metastatic melanoma Palliative care by specialist Advanced care planning/counseling discussion Cellulitis of left lower leg Renal failure (ARF), acute on chronic Severe sepsis with septic shock Unwitnessed fall Sepsis Goals of care, counseling/discussion Fluid overload Physical deconditioning Fever Abdominal pain (Acute) Hypoxia (Acute) Melanoma Subtherapeutic international normalized ratio (INR) (Acute) Abdominal pain Hypoxia Elevated LFTs Acute blood loss anemia Dysuria Hematoma of chest wall (Acute) Chest pain (Acute) Metabolic encephalopathy Demand ischemia Altered mental status Acute kidney injury superimposed on CKD Complicated UTI (urinary tract infection) Severe sepsis Hypovolemic shock Vomiting (Acute) Hypomagnesemia (Acute) Bilateral cellulitis of lower leg (Acute) Bilateral leg edema (Acute) Prostate nodule ELISABETH (acute kidney injury) Hypomagnesemia Bilateral cellulitis of lower leg (Acute) Leg swelling (Acute) ALVAREZ (dyspnea on exertion) (Acute) Cellulitis Incontinence Port-A-Cath in place (01/24/23) Infusaport Insertion to right internal jugular with Fluoroscopy(Right) - Vamsi Tolbert DO Allergic reaction (Acute) Pulmonary embolism Trigeminal neuralgia (Acute) Trigeminal neuralgia (Acute) Vitamin D deficiency (Acute) Hypertension (Acute) Chronic kidney disease, stage 3 (Acute) Vitamin D deficiency (Chronic) Prostate cancer screening Thoracic ascending aortic aneurysm Gastritis Insomnia Encounter for pre-operative examination Primary osteoarthritis, left shoulder Low back pain with sciatica (Acute) History of pulmonary embolism 2015, unknown etiology emt intermediate (current) use of anticoagulants (Chronic) History of malignant melanoma Left side of neck Aortic aneurysm CT 12/2022- "Aneurysmal dilatation of the ascending thoracic aorta measuring up to 4.6 cm in diameter. This is similar to the prior studies." Follows with Dr. Marshall Hypercholesterolemia (Acute) Stone in kidney Hx Hypertension (Chronic) Chronic kidney disease, stage III (moderate) (Chronic) Trigeminal neuralgia (Acute) s/p radiated nerve, No issues x several years Medical History Obesity Encephalitis Pulmonary embolism on long-term anticoagulation therapy Atrial fibrillation and flutter Pulmonary embolism Constipated COVID-19 Osteoarthritis Surgical History History of left shoulder replacement History of right shoulder replacement History of total left knee replacement (TKR) History of total right knee replacement (TKR) with revision History of colonoscopy History of inguinal hernia repair History of cancer surgery Left side of neck resection + lymph node removal History of tooth extraction History of tonsillectomy and adenoidectomy History of sinus surgery History of cystoscopy History of cataract surgery bilateral History of back surgery L4-L5 with screws Family History Family/Other Diabetes Heart disease Nephrolithiasis Other No family history of adverse response to anesthesia Social History Smoking Status: Never smoker Second Hand Exposure: No; Do You Dip or Chew Tobacco: No; Hx Alcohol Use: No Hx Substance Use: No Preferred Language: German Communication Ability: Impaired Residence Supervisor Required: No Beliefs That Will Affect Care: None Current Living Situation: Spouse current occupational status: retired Feels Safe at Home: Yes Seatbelt Use: always Assistive Devices: Cane, Walker and Wheelchair Physical Exam Vital Signs Vital Signs - 24 hr 04/17/24 14:47 04/17/24 16:33 04/17/24 16:38 Temperature 36.5 C 36.7 C Temperature Source Temporal Artery Scan Oral Pulse Rate 86 115 H Pulse Rate [Apical] 115 H Pulse Rhythm [Apical] Regular Pulse Strength [Apical] Normal Respiratory Rate 18 18 Respiratory Effort / Characteristics Non-Labored Non-Labored Respiratory Depth Normal Normal Respiratory Pattern Regular Regular Blood Pressure 136/75 Blood Pressure [Right Arm] 101/72 Blood Pressure Mean 95 Blood Pressure Mean [Right Arm] 81 Blood Pressure Position [Right Arm] Semi-fowlers Pulse Oximetry 96 96 Oxygen Delivery Method Room Air Room Air Sepsis Recent Fever Within 48 Hours No Sepsis New/Unexplained Change in Mental Status N/A Sepsis Action Taken by Nursing No Action Required 04/17/24 18:00 Temperature 36.7 C Temperature Source Oral Pulse Rate Pulse Rate [Apical] 117 H Pulse Rhythm [Apical] Regular Pulse Strength [Apical] Normal Respiratory Rate 18 Respiratory Effort / Characteristics Non-Labored Respiratory Depth Normal Respiratory Pattern Regular Blood Pressure Blood Pressure [Right Arm] 94/55 L Blood Pressure Mean Blood Pressure Mean [Right Arm] 68 Blood Pressure Position [Right Arm] Semi-fowlers Pulse Oximetry 96 Oxygen Delivery Method Room Air Sepsis Recent Fever Within 48 Hours Sepsis New/Unexplained Change in Mental Status Sepsis Action Taken by Nursing Physical Exam GENERAL: Ill-appearing. HENT: Exam performed. - Head: Normocephalic and atraumatic. - Right Ear: External ear normal. No mastoid erythema - Left Ear: External ear normal. No mastoid erythema - Mouth/Throat: The oropharynx is clear and moist. No trismus in the jaw. No dental abscesses or uvula swelling. No oropharyngeal exudate or tonsillar abscesses. EYES: Conjunctivae and EOM are normal. Pupils are equal, round, and reactive to light. Right eye exhibits no discharge. Left eye exhibits no discharge. No scleral icterus. NECK: Normal range of motion. Neck supple. No JVD present. CV: Normal rate, regular rhythm, normal heart sounds and intact distal pulses.Palpable radial pulses bue. PULM/CHEST: Rhonchi and rales bilaterally. ABD: The abdomen is soft. There is tenderness to palpation of the right lower quadrant. There is no rebound, no guarding. MUSC/SKEL: 3+ pitting edema of the bilateral lower extremities. Stasis dermatitis bilateral lower extremities. No warmth. No fluctuant areas. LYMPH: No cervical adenopathy. NEURO: Motor and sensation grossly intact. Course Course 1601: The patient was evaluated in room A3. A complete history and physical exam was performed Cardiac monitoring: An order was placed for continuous cardiac monitoring. The monitor shows a rate of 100 with sinus rhythm interpreted by 1800: Labs and imaging are unremarkable with exception for magnesium 1.3. Magnesium patient started emergency department. Patient be admitted to the [facility] hospitalist team. Administered Medications Lactated Ringer's (Lr) 500 mls @ 125 mls/hr IV .Q4H ONE Stop: 04/18/24 22:48 Last Admin: 04/17/24 19:15 Dose: 125 mls/hr Documented By: ABDIAS Discontinued Medications Magnesium Sulfate/Dextrose (Magnesium Sulfate / D5w) 1 gm in 100 mls @ 100 mls/hr IV Q1H KELSY Stop: 04/17/24 20:00 Last Infusion: 04/17/24 20:15 Dose: Infused Documented By: Admin: 04/17/24 19:15 Dose: 100 mls/hr Documented By: Infusion: 04/17/24 19:14 Dose: Infused Documented By: Admin: 04/17/24 18:14 Dose: 100 mls/hr Documented By: GALE Lactated Ringer's (Lr) 500 mls @ 999 mls/hr IV .Q31M ONE Stop: 04/17/24 19:18 Last Infusion: 04/17/24 19:50 Dose: Infused Documented By: Admin: 04/17/24 19:15 Dose: 999 mls/hr Documented By: ABDIAS Ioversol (Optiray 320 100ml) 94 ml IV ONCE ONE Stop: 04/17/24 16:51 Last Admin: 04/17/24 16:51 Dose: 94 ml Documented By: RAMON Medical Decision Making Medical Records Attestation: I reviewed the patient's medical records. External medical records reviewed. Patient was recently admitted from April 01 to April 09, 2024. At that time he was admitted for sepsis. The source of the sepsis was thought to be the patient's cellulitis of the left lower extremity. Patient does have a history of stasis dermatitis. Patient's Coumadin was discontinued due to multiple falls. Patient has a history of CKD. Laboratory Data Attestation: I reviewed the patient's lab results. 04/17/24 15:47 04/17/24 15:47 Lab Results 04/17/24 04/17/24 04/17/24 Range/Units 15:47 16:25 16:57 WBC 7.48 (4.8-10.8) K/ul RBC 4.57 L (4.70-6.10) M/uL Hgb 14.2 (14.0-18.0) g/dl Hct 44.2 (42.0-52.0) % MCV 96.7 (80.0-100.0) fL MCH 31.1 (25.0-34.0) pg MCHC 32.1 (32.0-36.0) g/dL RDW Std Deviation 56.6 H (36.4-46.3) fL RDW Coeff of Lisbeth 15.8 H (11.5-14.5) % Plt Count 216 (130-400) K/uL MPV 9.9 (9.4-12.4) fL Immature Gran % (Auto) 0.1 % Neut % (Auto) 45.9 % Lymph % (Auto) 32.8 % [place] % (Auto) 14.3 % Eos % (Auto) 6.0 % Baso % (Auto) 0.9 % Neut # (Auto) 3.43 (1.40-6.50) K/uL Lymph # (Auto) 2.45 (1.20-3.40) K/uL [place] # (Auto) 1.07 H (0.11-0.59) K/uL Eos # (Auto) 0.45 (0.00-0.50) K/uL Baso # (Auto) 0.07 (0.00-0.20) K/uL Immature Gran # (Auto) 0.01 (0.01-0.20) K/uL PT 12.1 H (9.0-12.0) Seconds INR 1.1 (0.9-1.1) APTT 29 (21-31) Seconds PTT Ratio 1.1 VBG pH 7.41 (7.36-7.41) VBG pCO2 48 (38-50) mmHg VBG pO2 48 mmHg VBG HCO3 30 mmol/L VBG O2 Saturation 77.9 % VBG Base Excess 4.8 mEq/L Sodium 139 (136-145) mmol/L Potassium 3.8 (3.5-5.1) mmol/L Chloride 101 (98-107) mmol/L Carbon Dioxide 30 (21-32) mmol/L Anion Gap 8 (3-11) BUN 17 (6-23) mg/dl Creatinine 1.33 (0.6-1.4) mg/dl Est Cr Clr Drug Dosing Not Reportable eGFR 54.37 BUN/Creatinine Ratio 12.8 (10-20) Glucose 105 H (70-99(Fasting)) mg/dl Calcium 12.0 H (8.6-10.3) mg/dl Magnesium 1.3 L (1.7-2.4) mg/dl Total Bilirubin 2.0 H (0.2-1.0) mg/dl AST 73 H (13-39) U/L ALT 21 (7-52) U/L Alkaline Phosphatase 119 H (34-104) U/L Ammonia 40.0 (18-72) umol/L Troponin I High Sens 6.1 (0-20) pg/ml B-Natriuretic Peptide 50 (0-100) pg/ml Total Protein 5.9 L (6.0-8.3) gm/dl Albumin 3.1 L (3.4-5.0) gm/dl Globulin 2.8 (2.5-4.0) gm/dl Albumin/Globulin Ratio 1.1 (0.9-2) Lipase 35 (11-82) U/L Urine Color Urine Appearance (Clear) Urine pH (4.5-7.5) Ur Specific [place] (1.000-1.030) Urine Protein (Negative) Urine Glucose (UA) (Negative) Urine Ketones (Negative) Urine Blood (Negative) Urine Nitrite (Negative) Urine Bilirubin (Negative) Urine Urobilinogen (Negative) Ur Leukocyte Esterase (Negative) Urine WBC (Auto) (0-5) /hpf Urine RBC (Auto) (0-2) /hpf U Hyaline Cast (Auto) (0-2) /lpf U Epithel Cells (Auto) (0-2) /hpf Urine Bacteria (Auto) (None Seen) Uric Acid Crystals (None Prsent) Ur Random Creatinine mg/dl Ur Random Sodium mmol/L Adenovirus (PCR) (NotDetected) B. pertussis DNA (PCR) (NotDetected) B.parapertussis DNA PCR (NotDetected) C. pneumoniae DNA (PCR) (NotDetected) Coronavirus OC43 (PCR) (NotDetected) Coronavirus HKU1 (PCR) (NotDetected) Coronavirus 229E (PCR) (NotDetected) SARS-CoV-2 (PCR) (NotDetected) Coronavirus NL63 (PCR) (NotDetected) Human Metapneumovir PCR (NotDetected) Influenza Type A (PCR) (NotDetected) Influenza Type B (PCR) (NotDetected) M. pneumoniae (PCR) (NotDetected) Parainfluenza 1 (PCR) (NotDetected) Parainfluenza 2 (PCR) (NotDetected) Parainfluenza 3 (PCR) (NotDetected) Parainfluenza 4 (PCR) (NotDetected) RSV (PCR) (NotDetected) Entero/Rhino (PCR) (NotDetected) 1113/24 11/13/24 Range/Units 17:03 18:20 WBC (4.8-10.8) K/ul RBC (4.70-6.10) M/uL Hgb (14.0-18.0) g/dl Hct (42.0-52.0) % MCV (80.0-100.0) fL MCH (25.0-34.0) pg MCHC (32.0-36.0) g/dL RDW Std Deviation (36.4-46.3) fL RDW Coeff of Lisbeth (11.5-14.5) % Plt Count (130-400) K/uL MPV (9.4-12.4) fL Immature Gran % (Auto) % Neut % (Auto) % Lymph % (Auto) % [place] % (Auto) % Eos % (Auto) % Baso % (Auto) % Neut # (Auto) (1.40-6.50) K/uL Lymph # (Auto) (1.20-3.40) K/uL [place] # (Auto) (0.11-0.59) K/uL Eos # (Auto) (0.00-0.50) K/uL Baso # (Auto) (0.00-0.20) K/uL Immature Gran # (Auto) (0.01-0.20) K/uL PT (9.0-12.0) Seconds INR (0.9-1.1) APTT (21-31) Seconds PTT Ratio VBG pH (7.36-7.41) VBG pCO2 (38-50) mmHg VBG pO2 mmHg VBG HCO3 mmol/L VBG O2 Saturation % VBG Base Excess mEq/L Sodium (136-145) mmol/L Potassium (3.5-5.1) mmol/L Chloride (98-107) mmol/L Carbon Dioxide (21-32) mmol/L Anion Gap (3-11) BUN (6-23) mg/dl Creatinine (0.6-1.4) mg/dl Est Cr Clr Drug Dosing eGFR BUN/Creatinine Ratio (10-20) Glucose (70-99(Fasting)) mg/dl Calcium (8.6-10.3) mg/dl Magnesium (1.7-2.4) mg/dl Total Bilirubin (0.2-1.0) mg/dl AST (13-39) U/L ALT (7-52) U/L Alkaline Phosphatase (34-104) U/L Ammonia (18-72) umol/L Troponin I High Sens (0-20) pg/ml B-Natriuretic Peptide (0-100) pg/ml Total Protein (6.0-8.3) gm/dl Albumin (3.4-5.0) gm/dl Globulin (2.5-4.0) gm/dl Albumin/Globulin Ratio (0.9-2) Lipase (11-82) U/L Urine Color Dark Yellow Urine Appearance Cloudy A (Clear) Urine pH 5.0 (4.5-7.5) Ur Specific [place] 1.030 (1.000-1.030) Urine Protein Trace H (Negative) Urine Glucose (UA) Negative (Negative) Urine Ketones Trace H (Negative) Urine Blood Negative (Negative) Urine Nitrite Positive A (Negative) Urine Bilirubin 1+ H (Negative) Urine Urobilinogen Negative (Negative) Ur Leukocyte Esterase Trace H (Negative) Urine WBC (Auto) 0-5 (0-5) /hpf Urine RBC (Auto) 3-5 H (0-2) /hpf U Hyaline Cast (Auto) 11-20 H (0-2) /lpf U Epithel Cells (Auto) 3-5 H (0-2) /hpf Urine Bacteria (Auto) None Seen (None Seen) Uric Acid Crystals Present A (None Prsent) Ur Random Creatinine 284.0 mg/dl Ur Random Sodium 24 mmol/L Adenovirus (PCR) Not Detected (NotDetected) B. pertussis DNA (PCR) Not Detected (NotDetected) B.parapertussis DNA PCR Not Detected (NotDetected) C. pneumoniae DNA (PCR) Not Detected (NotDetected) Coronavirus OC43 (PCR) Not Detected (NotDetected) Coronavirus HKU1 (PCR) Not Detected (NotDetected) Coronavirus 229E (PCR) Not Detected (NotDetected) SARS-CoV-2 (PCR) Not Detected (NotDetected) Coronavirus NL63 (PCR) Not Detected (NotDetected) Human Metapneumovir PCR Not Detected (NotDetected) Influenza Type A (PCR) Not Detected (NotDetected) Influenza Type B (PCR) Not Detected (NotDetected) M. pneumoniae (PCR) Not Detected (NotDetected) Parainfluenza 1 (PCR) Not Detected (NotDetected) Parainfluenza 2 (PCR) Not Detected (NotDetected) Parainfluenza 3 (PCR) Not Detected (NotDetected) Parainfluenza 4 (PCR) Not Detected (NotDetected) RSV (PCR) Not Detected (NotDetected) Entero/Rhino (PCR) Not Detected (NotDetected) Imaging Data Attestation: I personally reviewed and interpreted this imaging study as follows: My Impression: Chest x-ray: Cardiomegaly with cephalization Radiologist's Impression: Chest X-Ray 04/17/24 14:51 XR chest 1V not portable HISTORY: 78 years-old Male dehydrated acute shortness of breath COMPARISON: 04/01/2024 TECHNIQUE: AP view the chest FINDINGS: Cardiac mediastinal and hilar silhouettes are unchanged. The low position of the right IJ [id number] catheter. Only vascular congestion. No pneumothorax, or large pleural effusion. Mild chronic interstitial coarsening. Punctate calcified granuloma suggested within the left midlung. Bilateral shoulder arthroplasties. IMPRESSION: Cardiomegaly with suggestion of pulmonary vascular congestion. ACT 112: Negative or not required by law. The above report was generated using voice recognition software. It may contain grammatical, syntax or spelling errors. Electronically signed by: Dominick George M.D. 04/17/2024 3:41 PM Abdomen/Pelvis CT 04/17/24 16:12 EXAM: CT Abdomen and Pelvis With Intravenous Contrast INDICATION: 3 days of vomiting. TECHNIQUE: Axial computed tomography images of the abdomen and pelvis with intravenous contrast. Sagittal and coronal reformatted images were created and reviewed. This CT exam was performed using one or more of the following dose reduction techniques: automated exposure control, adjustment of the mA and/or kV according to patient size, and/or use of iterative reconstruction technique. CONTRAST: 94 ml of Optiray 320 was administered intravenously. COMPARISON: 04/01/2024 FINDINGS: Limitations: None. Lung bases: No abnormality noted. Pleural space: Persistent but improved irregular consolidation noted in the lung bases with resolved pleural effusions. A pleural-based right anterior nodule is only minimally seen. The inferior portion is unchanged. Heart: No abnormality noted. Mediastinum: No abnormality noted. ABDOMEN: Liver: Stable markedly heterogeneous enhancement of the liver. Suggestion of nodular contour concerning for cirrhosis. No mass or ductal dilatation. Gallbladder and bile ducts: No calcified stones or surrounding fluid. Pancreas: Homogeneous enhancement. No mass, inflammation or ductal dilation. Spleen: No significant abnormality noted. Adrenals: No significant abnormality noted. Kidneys and ureters: Stable bilateral parapelvic, periureteral and perinephric edema. No stones or hydronephrosis. Stomach and bowel: Scattered moderate stool throughout the colon. Scattered diverticulosis. No diverticulitis or obstruction. There is improved presacral edema. PELVIS: Appendix: Well seen and appears normal. Bladder: Small amount of air noted in the urinary bladder. Reproductive: No abnormalities noted. ABDOMEN and PELVIS: Intraperitoneal space: No free air. No significant fluid collection. Bones/joints: Degenerative changes present throughout the spine. Intact posterior L4-S1 fusion hardware. No acute osseous abnormality noted. Soft tissues: There are small bilateral fat containing inguinal hernias. Vasculature: Atherosclerotic calcification of the aorta and branches. No aneurysm. Lymph nodes: No pathologically enlarged lymph nodes. IMPRESSION: 1. Previously identified catheter is no longer present. 2. Stable urinary tract inflammation. Small amount of residual air in the bladder may be related to recent catheterization. Mild cystitis not excluded. 3. Resolved basilar pleural effusions and improved basilar atelectasis. ACT 112: Negative or not required by law. Electronically signed by Tara Cervantes 04-17-2024 5:[address] 04/17/24 16:24 EXAM: CT Head Without Intravenous Contrast INDICATION: Altered mental status TECHNIQUE: Axial computed tomography images of the head/brain without intravenous contrast. Sagittal and/or coronal reformats are provided. Sagittal and coronal reformatted images were created and reviewed. This CT exam was performed using one or more of the following dose reduction techniques: automated exposure control, adjustment of the mA and/or kV according to patient size, and/or use of iterative reconstruction technique. COMPARISON: 04/01/2024 and 01/19/2024 FINDINGS: Limitations: None. Brain and extra-axial spaces: There is age appropriate cortical atrophy and chronic ischemic periventricular white matter hypodensity. No acute infarct, hemorrhage or mass noted. Stable dense bilateral basal ganglia calcification. Bones/joints: No acute changes. Soft tissues: No significant abnormality noted. Vasculature: No acute abnormality noted. Sinuses: Stable chronic destruction of the right sphenoid sinus which is opacified. Mastoid air cells: No mastoid effusion. Orbits: No significant abnormality noted. IMPRESSION: Cerebral atrophy. No acute changes. ACT 112: Negative or not required by law. Electronically signed by Tara Cervantes 04-17-2024 5:04 PM [facility] Narrative 1601: The patient was evaluated in room A3. A complete history and physical exam was performed Cardiac monitoring: An order was placed for continuous cardiac monitoring. The monitor shows a rate of 100 with sinus rhythm interpreted by nd 1800: Labs and imaging are unremarkable with exception for magnesium 1.3. Magnesium patient started emergency department. Patient be admitted to the [facility] Hospitalist team. Impression & Plan Hypomagnesemia Discharge Plan Visit Data Chief Complaint: Dehydration Stated Complaint: DEHYDRATED, CAN'T EAT ED Provider: Jag Lira Discharge Problem: Hypomagnesemia Patient Disposition: Admitted As Inpatient Discharge Instructions Interventions: ED Discharge Assessment Last Done: 04/17/24 21:19
[2024-04-17] MEDS: OPTIRAY 320 100ml IV ONE (16:51)
[2024-04-17 17:05] LABS: Base Excess VBG 4.8 mEq/L; HCO3 VBG 30 mmol/L; Oxygen Saturation VBG 77.9 %; PCO2 VBG 48 mmHg (38-50); PO2 VBG 48 mmHg; pH VBG 7.41 (7.36-7.41)
--- NOTE | 2024-04-17 17:05 | CT Scan Report ---
EXAM: CT Head Without Intravenous Contrast INDICATION: Altered mental status TECHNIQUE: Axial computed tomography images of the head/brain without intravenous contrast. Sagittal and/or coronal reformats are provided. Sagittal and coronal reformatted images were created and reviewed. This CT exam was performed using one or more of the following dose reduction techniques: automated exposure control, adjustment of the mA and/or kV according to patient size, and/or use of iterative reconstruction technique. COMPARISON: 04/01/2024 and 01/19/2024 FINDINGS: Limitations: None. Brain and extra-axial spaces: There is age appropriate cortical atrophy and chronic ischemic periventricular white matter hypodensity. No acute infarct, hemorrhage or mass noted. Stable dense bilateral basal ganglia calcification. Bones/joints: No acute changes. Soft tissues: No significant abnormality noted. Vasculature: No acute abnormality noted. Sinuses: Stable chronic destruction of the right sphenoid sinus which is opacified. Mastoid air cells: No mastoid effusion. Orbits: No significant abnormality noted. IMPRESSION: Cerebral atrophy. No acute changes. ACT 112: Negative or not required by law. Electronically signed by Tara Cervantes 04-17-2024 5:04 PM
--- NOTE | 2024-04-17 17:20 | CT Scan Report ---
EXAM: CT Abdomen and Pelvis With Intravenous Contrast INDICATION: 3 days of vomiting. TECHNIQUE: Axial computed tomography images of the abdomen and pelvis with intravenous contrast. Sagittal and coronal reformatted images were created and reviewed. This CT exam was performed using one or more of the following dose reduction techniques: automated exposure control, adjustment of the mA and/or kV according to patient size, and/or use of iterative reconstruction technique. CONTRAST: 94 ml of Optiray 320 was administered intravenously. COMPARISON: 04/01/2024 FINDINGS: Limitations: None. Lung bases: No abnormality noted. Pleural space: Persistent but improved irregular consolidation noted in the lung bases with resolved pleural effusions. A pleural-based right anterior nodule is only minimally seen. The inferior portion is unchanged. Heart: No abnormality noted. Mediastinum: No abnormality noted. ABDOMEN: Liver: Stable markedly heterogeneous enhancement of the liver. Suggestion of nodular contour concerning for cirrhosis. No mass or ductal dilatation. Gallbladder and bile ducts: No calcified stones or surrounding fluid. Pancreas: Homogeneous enhancement. No mass, inflammation or ductal dilation. Spleen: No significant abnormality noted. Adrenals: No significant abnormality noted. Kidneys and ureters: Stable bilateral parapelvic, periureteral and perinephric edema. No stones or hydronephrosis. Stomach and bowel: Scattered moderate stool throughout the colon. Scattered diverticulosis. No diverticulitis or obstruction. There is improved presacral edema. PELVIS: Appendix: Well seen and appears normal. Bladder: Small amount of air noted in the urinary bladder. Reproductive: No abnormalities noted. ABDOMEN and PELVIS: Intraperitoneal space: No free air. No significant fluid collection. Bones/joints: Degenerative changes present throughout the spine. Intact posterior L4-S1 fusion hardware. No acute osseous abnormality noted. Soft tissues: There are small bilateral fat containing inguinal hernias. Vasculature: Atherosclerotic calcification of the aorta and branches. No aneurysm. Lymph nodes: No pathologically enlarged lymph nodes. IMPRESSION: 1. Previously identified catheter is no longer present. 2. Stable urinary tract inflammation. Small amount of residual air in the bladder may be related to recent catheterization. Mild cystitis not excluded. 3. Resolved basilar pleural effusions and improved basilar atelectasis. ACT 112: Negative or not required by law. Electronically signed by Tara Cervantes 04-17-2024 5:20 PM
[2024-04-17 17:28] LABS: Lipase 35 U/L (11-82); Magnesium 1.3 mg/dl (1.7-2.4)
[2024-04-17 17:34] LABS: INR 1.1 (0.9-1.1); Partial Thromboplastin Ratio 1.1; Partial Thromboplastin Time 29 Seconds (21-31); Prothrombin Time 12.1 Seconds (9.0-12.0)
[2024-04-17 17:34] LABS: Troponin I High Sensitivity 6.1 pg/ml (0-20)
--- NOTE | 2024-04-17 18:10 | History & Physical Report ---
Date of Service April 17, 2024 Assessment & Plan (1) ELISABETH (acute kidney injury): Plan: with stage III CKD likely secondary to hypovolemia with recent vomiting - Cr 1.33 - CTAP showed stable urinary tract inflammation, small amount of residual air in bladder related to recent catheterization - FENa - urine Na and Cr pending - UA pending - BMP trend - Hold nephrotoxic agents - continue to promote oral hydration if able to tolerate and IV fluid resuscitation with 500 mL LR on admission and 500 mL gentle resuscitation overnight (2) Hypomagnesemia: Plan: Chronic, possibly acutely worsened due to vomiting - Mg 1.3 on admission - 2g IV in ER - 400 mg PO daily BID added - Mg with AM labs - monitor on tele given electrolyte abnormalities Hypokalemia: K+ 3.8 -> 20 MeQ on admission; continue home 10 meq BID (3) Weakness: Plan: ongoing with recent hospitalizations and falls - saw palliative on previous admission, was to transition to rehab trial at SNF and then eventually long-term SNF placement - Was discharged 04/09 with home health - PT/OT to evaluate (4) Pleural effusion: Plan: Hx of pleural effusions - CTAP on admission showed resolved basilar pleural effusions and improved basilar atelectasis - CXR negative - Continue to monitor given IV fluid resuscitation (5) Melanoma: Plan: Stage III - S/p surgical excision and Keytruda adjuvant therapy - 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 dose defer on admission given hypotension VTE ppx: SCDs - defer pharmacologic therapy given recent chest wall hematoma Diet: clears, advance as tolerated Code status: DNR/DNI Dispo: med/tele Admission and Anticipated Discharge Date Admission Date: 04/17/24 History of Present Illness Chief Complaint: dehydration Primary Care Provider: Stef Encarnacion MD Patient is a 78-year-old male with a past medical history of CKD stage III, PE in 2021, stage III melanoma started on pembrolizumab 01/12/2023, atrial fibrillation. He has had numerous hospitalizations recently. He presents today due to dehydration from recent nausea and vomiting. as per the patient's family he has chronic vomiting and weakness. Both have progressively gotten worse over the past 3 days. He has vomited 2-3 times per day, no vomiting today. His weakness has gotten worse since he was recently discharged 04/09. He was seen by palliative care during previous admission, plan was to discharge to SNF with goal of long-term SNF placement. Patient was then unable to qualify for SNF and was sent home with home health. Patient denies current nausea. Unable to perform ROS given patient's lethargy. Patient's family stated that he was sent home with a oxygen set up 2 admissions ago, he does not use his oxygen at home unless he needs it on exertion. He was on 2 L via nasal cannula on admission. Patient's and son updated at bedside. Allergies Allergy/AdvReac Type Severity Reaction Status Date / Time gabapentin Allergy Intermediate Rash Verified 02/24/24 09:51 tramadol Allergy Intermediate Rash and Verified 02/24/24 09:51 itchiness hydrocodone Allergy Mild itchy Verified 02/24/24 09:51 oxycodone Allergy Mild itchy Verified 02/24/24 09:51 carbamazepine Allergy Unknown Unknown Verified 02/24/24 09:51 ciprofloxacin Allergy Unknown Unknown Verified 02/24/24 09:51 Home Medications Medication Instructions Recorded Confirmed Type acetaminophen 650 mg 650 mg PO Q4H PRN Pain 01/27/24 04/01/24 History tablet,extended release allopurinol 100 mg tablet 0 mg PO QAM 01/27/24 04/17/24 History furosemide 40 mg tablet 40 mg PO DAILY PRN weight 02/24/24 04/17/24 History gain/swelling potassium citrate 10 mEq (1,080 0 meq PO BID 03/24/24 04/17/24 History mg) tablet,extended release metoprolol succinate 50 mg 0 mg PO QAM 04/17/24 04/17/24 History tablet,extended release 24 hr enoxaparin 40 mg/0.4 mL 40 mg (0.4 mL) subcut DAILY 30 04/27/24 Rx subcutaneous syringe (Lovenox) days #12 mL pantoprazole 40 mg tablet,delayed 40 mg PO DAILY #30 tabs 04/27/24 Rx release (Protonix) prednisone 50 mg tablet 50 mg PO QAM #30 tabs 04/27/24 Rx thiamine HCl (vitamin B1) 100 mg 100 mg PO QAM #30 tabs 04/27/24 Rx tablet Past Med/Surg History Problem List (Updated 04/22/24 @ 16:46 by Zachariah Wilder MD) Hypercalcemia Acute respiratory failure with hypoxia Acute diastolic CHF (congestive heart failure) Encephalopathy Hypomagnesemia (Acute) Vomiting Pleural effusion Weakness Encephalopathy Metastatic melanoma Palliative care by specialist Advanced care planning/counseling discussion Cellulitis of left lower leg Renal failure (ARF), acute on chronic Severe sepsis with septic shock Unwitnessed fall Sepsis Goals of care, counseling/discussion Fluid overload Physical deconditioning Fever Abdominal pain (Acute) Hypoxia (Acute) Melanoma Subtherapeutic international normalized ratio (INR) (Acute) Abdominal pain Hypoxia Elevated LFTs Acute blood loss anemia Dysuria Hematoma of chest wall (Acute) Chest pain (Acute) Metabolic encephalopathy Demand ischemia Altered mental status Acute kidney injury superimposed on CKD Complicated UTI (urinary tract infection) Severe sepsis Hypovolemic shock Vomiting (Acute) Hypomagnesemia (Acute) Bilateral cellulitis of lower leg (Acute) Bilateral leg edema (Acute) Prostate nodule ELISABETH (acute kidney injury) Hypomagnesemia Bilateral cellulitis of lower leg (Acute) Leg swelling (Acute) ALVAREZ (dyspnea on exertion) (Acute) Cellulitis Incontinence Port-A-Cath in place (01/24/23) Infusaport Insertion to right internal jugular with Fluoroscopy(Right) - Vamsi Tolbert, Allergic reaction (Acute) Pulmonary embolism Trigeminal neuralgia (Acute) Trigeminal neuralgia (Acute) Vitamin D deficiency (Acute) Hypertension (Acute) Chronic kidney disease, stage 3 (Acute) Vitamin D deficiency (Chronic) Prostate cancer screening Thoracic ascending aortic aneurysm Gastritis Insomnia Encounter for pre-operative examination Primary osteoarthritis, left shoulder Low back pain with sciatica (Acute) 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 This is similar to the prior studies." Follows with Dr. Marshall Hypercholesterolemia (Acute) Stone in kidney Hx Hypertension (Chronic) Chronic kidney disease, stage III (moderate) (Chronic) Trigeminal neuralgia (Acute) s/p radiated nerve, No issues x several years Medical History Obesity Encephalitis Pulmonary embolism on long-term anticoagulation therapy Atrial fibrillation and flutter Pulmonary embolism Constipated COVID-19 Osteoarthritis Surgical History History of left shoulder replacement History of right shoulder replacement History of total left knee replacement (TKR) History of total right knee replacement (TKR) with revision History of colonoscopy History of inguinal hernia repair History of cancer surgery Left side of neck resection + lymph node removal History of tooth extraction History of tonsillectomy and adenoidectomy History of sinus surgery History of cystoscopy History of cataract surgery bilateral History of back surgery L4-L5 with screws Family History Family/Other Diabetes Heart disease Nephrolithiasis Other No family history of adverse response to anesthesia Social History Smoking Status: Never smoker Second Hand Exposure: No; Do You Dip or Chew Tobacco: No; Hx Alcohol Use: No Hx Substance Use: No Preferred Language: Dutch Communication Ability: Effective Software Sales Required: No Beliefs That Will Affect Care: None Current Living Situation: Spouse current occupational status: retired Feels Safe at Home: Yes Seatbelt Use: always Assistive Devices: Cane, Oxygen - Continuous, Walker and Wheelchair Review of Systems Review of Systems: See HPI Physical Exam Physical Exam: The patient is lethargic but responds to stimuli, normocephalic and atraumatic, in no acute distress. Non-toxic appearing. HEENT- EOMI, mucous membranes dry. Hearing grossly intact. Heart-normal S1 and S2. No murmurs, rubs or gallops. Lungs-clear bilaterally, no respiratory distress, no accessory muscle use. Abdomen-normal bowel sounds and soft. No ascites noted. Non-tender. Extremities- no clubbing, cyanosis, or edema. Results & Data Results & Data Vital Signs (Past 12 Hours) Vital Signs Temp Pulse Pulse Resp BP BP Pulse Ox 04/17/24 16:38 36.7 C 115 H 18 101/72 96 04/17/24 16:33 115 H 04/17/24 14:47 36.5 C 86 18 136/75 96 O2 Del Method 04/17/24 16:38 Room Air 04/17/24 16:33 04/17/24 14:47 Room Air Code Status & VTE Plan Code Status DNR/DNI VTE Prophylaxis Plan VTE Prophylaxis will be ordered: Yes Supervising Physician Co-Signing Physician Notes I personally saw and examined the patient. I independently reviewed the labs, EKG, imaging, problem list, medication list, past medical history and family history. I verified all marroquin points and agree with Di Gordon PA-C with the following exceptions and/or additions: 78 year old male presents to the ER with generalized weakness, nausea and vomiting. Unable to get any significant additional history from the patient. See history above O/E Dry mucus membranes, HS RRR, no murmurs, Chest CTAB, Abdo SNT A/P ELISABETH - suspect as a result of vomiting and dehydration with hypercalcemia, rehydrate with LR overnight and repeat in AM, replace magnesium PG Care Time/CCT Total # of Minutes Spent Total Time Spent with Patient: Total time spent is greater than 50% in coordination of care (as documented) at patient's floor/unit and/or counseling patient: Coding Level of Care Code 17838 INT INP/OBS CARE 75MIN Diagnoses ELISABETH (acute kidney injury) N17.9 Hypomagnesemia E83.42 Weakness R53.1 Pleural effusion J90 Melanoma C43.9 Vomiting R11.10
[2024-04-17] MEDS: MAGNESIUM SULFATE / D5W 1 GM/100 ML BAG IV SCH (18:14)
[2024-04-17 18:18] LABS: Adenovirus PCR Not Detected (NotDetected); Bordetella parapertussis PCR Not Detected (NotDetected); Bordetella pertussis PCR Not Detected (NotDetected); Chlamydia pneumoniae PCR Not Detected (NotDetected); Coronavirus 229E PCR Not Detected (NotDetected); Coronavirus CoV-2 (COVID19)PCR Not Detected (NotDetected); Coronavirus HKU1 PCR Not Detected (NotDetected); Coronavirus NL63 PCR Not Detected (NotDetected); Coronavirus OC43PCR Not Detected (NotDetected); Human Metapneumovirus PCR Not Detected (NotDetected); Influenza A PCR Not Detected (NotDetected); Influenza B PCR Not Detected (NotDetected); Mycoplasma pneumoniae PCR Not Detected (NotDetected); Parainfluenza Virus 1 PCR Not Detected (NotDetected); Parainfluenza Virus 2 PCR Not Detected (NotDetected); Parainfluenza Virus 3 PCR Not Detected (NotDetected); Parainfluenza Virus 4 PCR Not Detected (NotDetected); Respiratory Syncytial VirusPCR Not Detected (NotDetected); Rhinovirus/Enterovirus PCR Not Detected (NotDetected)
[2024-04-17 18:47] LABS: Appearance Urine Cloudy (Clear); Bacteria Urine Automated None Seen (None Seen); Bilirubin Urine 1+ (Negative); Blood Urine Negative (Negative); Color Urine Dark Yellow; Glucose Urine UA Negative (Negative); Ketones Urine Trace (Negative); Leukocyte Esterase Urine Trace (Negative); Nitrite Urine Positive (Negative); Protein Urine Trace (Negative); Uric Acid Crystals Urine Present (None Prsent); Urobilinogen Urine Negative (Negative); WBC Urine Automated 0-5 /hpf (0-5)
[2024-04-17] MEDS: LACTATED RINGER'S 500 ML IV ONE ×2 (19:15)
[2024-04-17] MEDS ORDERED: FUROSEMIDE 40 MG TAB PO PRN (22:04)
[2024-04-17] MEDS ORDERED: POTASSIUM CITRATE 10 MEQ TAB PO SCH ×2 (22:04→23:30)
[2024-04-17] MEDS: POTASSIUM CHLORIDE CRTAB 20 MEQ TABCR PO STA (23:28)
[2024-04-18] MEDS: INFLUENZA VACC TS2024-25(65y+)/PF (IIV3) 0.5mL Syr IM ONE (01:09)
[2024-04-18 05:58] LABS: Hematocrit (blood only) 38.1 % (42.0-52.0); Hemoglobin 12.5 g/dl (14.0-18.0); Mean Corpuscular Hemoglobin 31.3 pg (25.0-34.0); Mean Corpuscular Hgb Conc 32.8 g/dL (32.0-36.0); Mean Corpuscular Volume 95.3 fL (80.0-100.0); Mean Platelet Volume 9.7 fL (9.4-12.4); Platelet Count 175 K/uL (130-400); RDW Coefficient of Variation 15.5 % (11.5-14.5); RDW Standard Deviation 55.1 fL (36.4-46.3); White Blood Count 5.23 K/ul (4.8-10.8)
[2024-04-18 06:16] LABS: BUN Creatinine Ratio 13.7 (10-20); Calcium 11.6 mg/dl (8.6-10.3); Creatinine Clr Calc Pharmacy 53.3 ml/min; Magnesium 1.6 mg/dl (1.7-2.4); Potassium 3.9 mmol/L (3.5-5.1)
[2024-04-18] MEDS ORDERED: FERROUS SULFATE 325 MG TAB PO SCH (08:00)
[2024-04-18] MEDS ORDERED: METOPROLOL SUCC 50MG EXT REL TAB PO SCH (09:00)
[2024-04-18] MEDS ORDERED: allopurinoL 100 MG TAB PO SCH (09:00)
[2024-04-18] MEDS: FERROUS SULFATE 325 MG TAB PO SCH (09:04)
[2024-04-18] MEDS: PREGABALIN 50 MG CAP PO SCH (09:05)
[2024-04-18] MEDS: allopurinoL 100 MG TAB PO SCH (09:05)
[2024-04-18] MEDS: METOPROLOL SUCC 50MG EXT REL TAB PO SCH (09:05)
[2024-04-18] MEDS: POTASSIUM CITRATE 10 MEQ TAB PO SCH (09:05)
[2024-04-18] MEDS: MAGNESIUM OXIDE 400 MG TAB PO SCH (09:05)
--- NOTE | 2024-04-18 09:07 | Electrocardiogram Report ---
Test Reason : Blood Pressure : */* mmHG Vent. Rate : 109 BPM Atrial Rate : 109 BPM P-R Int : 144 ms QRS Dur : 82 ms QT Int : 438 ms P-R-T Axes : * -58 28 degrees QTcB Int : 589 ms Sinus tachycardia Left axis deviation Old Anterior infarct (cited on or before 24-Mar-2024) Old Inferior infarct (cited on or before 01-Apr-2024) Diffuse Nonspecific T wave abnormality Prolonged QT Abnormal ECG When compared with ECG of 01-Apr-2024 12:20, No significant change Confirmed by José Luis Jackson ([id number]) on 04/18/2024 9:06:43 AM Referred By: REFERRED SELF Confirmed By: José Luis Jackson
--- NOTE | 2024-04-18 10:52 | Hospitalist Progress Note ---
Date of Service April 18, 2024 Assessment & Plan (1) ELISABETH (acute kidney injury): Plan: Acute on chronic kidney disease stage III. IV fluids have been tapered down. Monitor intake and output. Serial labs (2) Hypomagnesemia: Plan: Chronic, possibly acutely worsened due to vomiting. Intravenous replacement administered on admission. Continue oral replacement. Serial labs (3) Weakness: Plan: ongoing with recent hospitalizations and falls. OT and PT assessments requested (4) Melanoma: Plan: Stage III. S/p surgical excision and Keytruda adjuvant therapy. 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 Recently seen by neurology. He has been treated with steroid therapy. Supportive care (5) Vomiting: Plan: Recurrent postprandial vomiting. He denies nausea. He may have gastroparesis. Reglan has been started. 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 He has completed a course of steroid therapy. Supportive care Plan It appears at this time that he will need SNF placement since he failed at home. OT and PT assessments have been requested. Admission and Anticipated Discharge Date Admission Date: April 17, 2024 Subjective Alert and oriented. No distress. He denies nausea but states that he vomits after he eats. He may have an element of gastroparesis. Reglan before meals has been ordered. OT and PT have been requested. It appears he will need placement before he can eventually return home Review of Systems 2 Review of Systems: Constitutionalno fever or chills ENTno blurred vision, no double vision, no epistaxis, no sore throat Respiratoryno cough, no wheezing, no shortness of breath Cardiacno palpitations, no chest pain, no syncope Ross nausea, diarrhea, melena, hematochezia. He apparently vomits however after each meal GUno urinary retention, no urinary incontinence, no dysuria, no hematuria Musculoskeletalno joint pain, no muscle tenderness Skinno bruising, no rashes, no pruritus Neurono isolated weakness, no paresthesia, no weakness Psychno depression, no anxiety Physical Exam 2 Physical Exam: General-alert and oriented x2, no fever, no chills HEENT-head atraumatic and normocephalic, pupils equal and reactive to light, extraocular muscles intact Neck-no lymphadenopathy or thyromegaly, trachea midline Chest-clear to auscultation. No rales, wheezing or rhonchi Cardiac-regular rate and rhythm, normal S1 and S2 Abdomen-normal bowel sounds, no hepatosplenomegaly Extremities-no cyanosis, clubbing, or edema Neuro-cranial nerves II through XII intact, motor and sensory function within normal limits, strength symmetrical with generalized weakness, no focal deficits Psych-normal affect, normal mood Results & Data Results & Data Vital Signs (Past 12 Hours) Vital Signs Temp Pulse Resp BP Pulse Ox O2 Del Method O2 Flow Rate 04/18/24 09:02 107/64 04/18/24 08:00 36.3 C L 108 H 16 97/58 L 96 Nasal Cannula 1 04/18/24 08:00 Nasal Cannula 2 04/18/24 03:51 37.0 C 112 H 20 115/55 L 94 Nasal Cannula 2 Laboratory Results 04/18/24 05:34 04/18/24 05:34 PG Care Time/CCT Total # of Minutes Spent Total Time Spent with Patient: Total time spent is greater than 50% in coordination of care (as documented) at patient's floor/unit and/or counseling patient: Coding Level of Care Code 66679 SUB INP/OBS CARE 3/50MIN Diagnoses ELISABETH (acute kidney injury) N17.9 Hypomagnesemia E83.42 Weakness R53.1 Melanoma C43.9 Vomiting R11.10 Encephalopathy G93.40
[2024-04-18] MEDS: METOCLOPRAMIDE HCL 5 MG TABLET PO SCH (14:59)
[2024-04-19 06:26] LABS: Hematocrit (blood only) 38.9 % (42.0-52.0); Hemoglobin 12.5 g/dl (14.0-18.0); Mean Corpuscular Hemoglobin 31.3 pg (25.0-34.0); Mean Corpuscular Hgb Conc 32.1 g/dL (32.0-36.0); Mean Corpuscular Volume 97.3 fL (80.0-100.0); Mean Platelet Volume 9.6 fL (9.4-12.4); Platelet Count 162 K/uL (130-400); RDW Coefficient of Variation 15.6 % (11.5-14.5); RDW Standard Deviation 55.8 fL (36.4-46.3); White Blood Count 5.61 K/ul (4.8-10.8)
[2024-04-19 06:48] LABS: BUN Creatinine Ratio 12.9 (10-20); Calcium 11.6 mg/dl (8.6-10.3); Creatinine Clr Calc Pharmacy 41.1 ml/min; Magnesium 1.6 mg/dl (1.7-2.4); Potassium 4.1 mmol/L (3.5-5.1)
[2024-04-19] MEDS: SODIUM CHLORIDE 0.9% 1,000 ML IV SCH (10:19)
[2024-04-19] MEDS: ACETAMINOPHEN 325 MG TAB PO PRN (11:52)
--- NOTE | 2024-04-19 15:33 | Hospitalist Progress Note ---
Date of Service April 19, 2024 Assessment & Plan (1) ELISABETH (acute kidney injury): Plan: Acute on chronic kidney disease stage III. Creatinine has increased to 1.7. Continue IV fluids for now. Monitor intake and output. Serial labs. (2) Hypomagnesemia: Plan: Chronic, possibly acutely worsened on admission due to vomiting. Intravenous replacement administered on admission. Continue oral replacement. Serial labs (3) Weakness: Plan: ongoing with recent hospitalizations and falls. Continue OT and PT while hospitalized. He will need long-term placement at discharge (4) Melanoma: Plan: Stage III. S/p surgical excision and Keytruda adjuvant therapy. 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 Recently seen by neurology. He has been treated with steroid therapy. Supportive care (5) Vomiting: Plan: Resolved with addition of oral Reglan before meals and at bedtime. He has recurrent postprandial vomiting. He denies nausea. He may have an element of gastroparesis. 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 His mental status waxes and wanes. He has completed a course of steroid therapy. Supportive care Plan It appears at this time that he will need SNF placement since he failed recent discharge to home. Case management has placed multiple referrals to multiple facilities which are pending. Admission and Anticipated Discharge Date Admission Date: April 17, 2024 Subjective Awake and alert. He is conversant with me at the time of my rounds this morning. Lyrica has been discontinued as a potential [employer] depressant. Case management entry noted. Multiple SNF referrals are pending Review of Systems 2 Review of Systems: Constitutionalno fever or chills ENTno blurred vision, no double vision, no epistaxis, no sore throat Respiratoryno cough, no wheezing, no shortness of breath Cardiacno palpitations, no chest pain, no syncope Ross nausea, diarrhea, melena, hematochezia. He apparently vomits however after each meal GUno urinary retention, no urinary incontinence, no dysuria, no hematuria Musculoskeletalno joint pain, no muscle tenderness Skinno bruising, no rashes, no pruritus Neurono isolated weakness, no paresthesia, no weakness Psychno depression, no anxiety Physical Exam 2 Physical Exam: General-alert and oriented x2, no fever, no chills HEENT-head atraumatic and normocephalic, pupils equal and reactive to light, extraocular muscles intact Neck-no lymphadenopathy or thyromegaly, trachea midline Chest-clear to auscultation. No rales, wheezing or rhonchi Cardiac-regular rate and rhythm, normal S1 and S2 Abdomen-normal bowel sounds, no hepatosplenomegaly Extremities-no cyanosis, clubbing, or edema Neuro-cranial nerves II through XII intact, motor and sensory function within normal limits, strength symmetrical with generalized weakness, no focal deficits Psych-normal affect, normal mood Results & Data Results & Data Vital Signs (Past 12 Hours) Vital Signs Temp Pulse Pulse Resp BP Pulse Ox O2 Del Method 04/19/24 14:06 91 H 04/19/24 11:20 36.6 C 87 16 104/62 97 Room Air 04/19/24 08:45 Nasal Cannula 04/19/24 07:57 36.4 C L 91 H 18 115/69 97 Room Air 04/19/24 07:12 98 H 04/19/24 04:50 36.7 C 94 H 20 119/70 97 Nasal Cannula O2 Flow Rate 04/19/24 14:06 04/19/24 11:20 04/19/24 08:45 1 04/19/24 07:57 04/19/24 07:12 04/19/24 04:50 1 Laboratory Results 04/19/24 06:14 04/19/24 06:14 PG Care Time/CCT Total # of Minutes Spent Total Time Spent with Patient: Total time spent is greater than 50% in coordination of care (as documented) at patient's floor/unit and/or counseling patient: Coding Level of Care Code 47303 SUB INP/OBS CARE 3/50MIN Diagnoses ELISABETH (acute kidney injury) N17.9 Hypomagnesemia E83.42 Weakness R53.1 Melanoma C43.9 Vomiting R11.10 Encephalopathy G93.40
[2024-04-20 07:29] LABS: Hematocrit (blood only) 38.7 % (42.0-52.0); Hemoglobin 12.6 g/dl (14.0-18.0); Mean Corpuscular Hemoglobin 31.3 pg (25.0-34.0); Mean Corpuscular Hgb Conc 32.6 g/dL (32.0-36.0); Mean Platelet Volume 10.1 fL (9.4-12.4); Platelet Count 160 K/uL (130-400); RDW Coefficient of Variation 14.7 % (11.5-14.5); RDW Standard Deviation 51.8 fL (36.4-46.3); Red Blood Count 4.03 M/uL (4.70-6.10)
[2024-04-20 07:50] LABS: Calcium 11.3 mg/dl (8.6-10.3); Creatinine Clr Calc Pharmacy 43.7 ml/min; Magnesium 1.5 mg/dl (1.7-2.4); Potassium 4.1 mmol/L (3.5-5.1)
--- NOTE | 2024-04-20 09:22 | XRay Report ---
XR chest 1V portable HISTORY: 78 years-old Male hypoxia COMPARISON: 04/17/2024 TECHNIQUE: AP view of the chest FINDINGS: Cardiomegaly. Unchanged positioning of right IJ [id number] catheter. No pneumothorax. Pulmonary va scular congestion with interstitial coarsening. Small pleural effusions with bibasilar consolidation, left greater than right. Spondylotic spurring of the spine. Bilateral shoulder arthroplasties. IMPRESSION: 1. Cardiomegaly with interstitial pulmonary edema. 2. Increased size of the small pleural effusions with progressive bibasilar consolidation. ACT 112: Negative or not required by law. The above report was generated using voice recognition software. It may contain grammatical, syntax o r spelling errors. Electronically signed by: Dominick George M.D. 04/20/2024 9:20 AM
[2024-04-20] MEDS: MAGNESIUM OXIDE 400 MG TAB PO SCH (09:41)
[2024-04-20] MEDS: ONDANSETRON INJ 2 MG/ML 2 ML VIAL IV PRN (10:29)
--- NOTE | 2024-04-20 11:36 | Hospitalist Progress Note ---
Date of Service April 20, 2024 Assessment & Plan (1) ELISABETH (acute kidney injury): Plan: Acute on chronic kidney disease stage III. IV fluids have stabilized the creatinine but have caused diastolic CHF. IV fluids have been discontinued and he is now on IV Lasix. Monitor intake and output. Serial labs. (2) Acute diastolic CHF (congestive heart failure): Plan: Due to IV fluids. Parenteral Lasix has been ordered. IV fluids have been discontinued. Monitor intake and output (3) Acute respiratory failure with hypoxia: Plan: Supplemental oxygen per nasal cannula to maintain saturation greater than 90%. Treat CHF. Wean off as tolerated (4) Hypomagnesemia: Plan: Chronic, possibly acutely worsened on admission due to vomiting. Intravenous replacement administered on admission. Continue oral replacement. Serial labs (5) Weakness: Plan: ongoing with recent hospitalizations and falls. Continue OT and PT while hospitalized. He will need long-term placement at discharge (6) Melanoma: Plan: Stage III. S/p surgical excision and Keytruda adjuvant therapy. 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 Recently seen by neurology. He has been treated with steroid therapy. Supportive care (7) Vomiting: Plan: Recurrent vomiting today, April 20, necessitated up titration of metoclopramide to 10 mg 3 times a day. He denies nausea. He may have an element of gastroparesis. 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 His mental status waxes and wanes. He has completed a course of steroid therapy. Supportive care Plan It appears at this time that he will need SNF placement since he failed recent discharge to home. Case management has placed multiple referrals to multiple facilities which are pending. Admission and Anticipated Discharge Date Admission Date: April 17, 2024 Subjective Awake and alert. Pleasant. Unfortunately he is disoriented. He is requiring supplemental oxygen. Chest x-ray reveals evidence of congestive heart failure which appears to be diastolic based on his most recent cardiac echo which reveals normal ejection fraction. IV fluids have been discontinued and parenteral Lasix started. Will monitor intake and output closely. He had some postprandial vomiting again today. Metoclopramide uptitrated to 10 mg 3 times daily dosing before meals. Review of Systems 2 Review of Systems: Constitutionalno fever or chills ENTno blurred vision, no double vision, no epistaxis, no sore throat Respiratoryno cough, no wheezing. Shortness of breath with exertion Cardiacno palpitations, no chest pain, no syncope Ross nausea, diarrhea, melena, hematochezia. He apparently vomits however after each meal GUno urinary retention, no urinary incontinence, no dysuria, no hematuria Musculoskeletalno joint pain, no muscle tenderness Skinno bruising, no rashes, no pruritus Neurono isolated weakness, no paresthesia, no weakness Psychno depression, no anxiety Physical Exam 2 Physical Exam: General-alert and oriented x2, no fever, no chills HEENT-head atraumatic and normocephalic, pupils equal and reactive to light, extraocular muscles intact Neck-no lymphadenopathy or thyromegaly, trachea midline Chest-bibasilar inspiratory rales. No wheezing. No rhonchi Cardiac-regular rate and rhythm, normal S1 and S2 Abdomen-normal bowel sounds, no hepatosplenomegaly Extremities-no cyanosis, clubbing, or edema Neuro-cranial nerves II through XII intact, motor and sensory function within normal limits, strength symmetrical with generalized weakness, no focal deficits Psych-normal affect, normal mood Results & Data Results & Data Vital Signs (Past 12 Hours) Vital Signs Temp Pulse Pulse Resp BP Pulse Ox O2 Del Method 04/20/24 11: 36.3 C L 89 20 101/59 L 91 Nasal Cannula 04/20/24 08:45 Nasal Cannula 04/20/24 07:55 112/64 04/20/24 07:45 36.6 C 85 16 97/55 L 92 Nasal Cannula 04/20/24 07:09 96 H 04/20/24 02:44 36.4 C L 98 H 20 116/62 97 Nasal Cannula O2 Flow Rate 04/20/24 11:24 2.5 04/20/24 08:45 1 04/20/24 07:55 04/20/24 07:45 2 04/20/24 07:09 04/20/24 02:44 2 Laboratory Results 04/20/24 06:28 04/20/24 06:28 PG Care Time/CCT Total # of Minutes Spent Total Time Spent with Patient: Total time spent is greater than 50% in coordination of care (as documented) at patient's floor/unit and/or counseling patient: Coding Level of Care Code 91633 SUB INP/OBS CARE 3/50MIN Diagnoses ELISABETH (acute kidney injury) N17.9 Acute diastolic CHF (congestive heart failure) I50.31 Acute respiratory failure with hypoxia J96.01 Hypomagnesemia E83.42 Weakness R53.1 Melanoma C43.9 Vomiting R11.10 Encephalopathy G93.40
[2024-04-20] MEDS: FUROSEMIDE 40 MG/4 ML VIAL IV SCH (12:30)
[2024-04-20] MEDS: METOCLOPRAMIDE HCL 10 MG TABLET PO SCH (14:17)
[2024-04-20] MEDS: DOCUSATE SODIUM 100 MG CAP PO PRN (20:03)
[2024-04-21] MEDS: HEPARIN 100 UNIT/ML 5ML FLUSH FLUSH PRN (08:58)
[2024-04-21] MEDS: FUROSEMIDE 40 MG/4 ML VIAL IV SCH (09:04)
[2024-04-21 09:50] LABS: Calcium 11.8 mg/dl (8.6-10.3); Creatinine Clr Calc Pharmacy 41.2 ml/min; Magnesium 1.5 mg/dl (1.7-2.4); Potassium 3.7 mmol/L (3.5-5.1)
[2024-04-21] MEDS: MAGNESIUM SULFATE / D5W 1 GM/100 ML BAG IV SCH (11:44)
--- NOTE | 2024-04-21 15:00 | Hospitalist Progress Note ---
Date of Service April 21, 2024 Assessment & Plan (1) ELISABETH (acute kidney injury): Plan: Acute on chronic kidney disease stage III. IV fluids have stabilized the creatinine but have caused diastolic CHF. IV fluids have been discontinued and he is now on IV Lasix. Monitor intake and output. Serial labs. (2) Acute diastolic CHF (congestive heart failure): Plan: Due to IV fluids. Parenteral Lasix dosage uptitrated today, April 21. He is now experiencing a brisk diuresis. Will repeat portable chest x-ray again tomorrow, April 22. Monitor intake and output (3) Acute respiratory failure with hypoxia: Plan: Supplemental oxygen per nasal cannula to maintain saturation greater than 90%. Currently 92% saturation on 2 L oxygen. Treat CHF. Wean off as tolerated (4) Hypomagnesemia: Plan: Chronic, possibly acutely worsened on admission due to vomiting. Continue intravenous and oral replacement. Serial labs (5) Weakness: Plan: ongoing with recent hospitalizations and falls. Continue OT and PT while hospitalized. He will need long-term placement at discharge (6) Melanoma: Plan: Stage III. S/p surgical excision and Keytruda adjuvant therapy. 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 Recently seen by neurology. He has been treated with steroid therapy. Supportive care (7) Vomiting: Plan: Recurrent vomiting on April 20 necessitated up titration of metoclopramide to 10 mg 3 times a day. No recurrent vomiting since then per nursing staff. He denies nausea. He may have an element of gastroparesis. 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 His mental status waxes and wanes. He has completed a course of steroid therapy. Supportive care Plan It appears at this time that he will need SNF placement since he failed recent discharge to home. Case management has placed multiple referrals to multiple facilities which are pending. Admission and Anticipated Discharge Date Admission Date: April 17, 2024 Subjective Alert and oriented. No distress. Lasix dosage was uptitrated and he is now experiencing a brisk diuresis. Magnesium remains slightly low at 1.5. Continue parenteral replacement along with oral replacement. Will repeat chest x-ray tomorrow, April 22. He failed his attempted discharge to home on April 09. Continue OT and PT while hospitalized. He will need SNF placement this time around. No further vomiting per nursing after Reglan dosage uptitrated yesterday, April 20. Review of Systems 2 Review of Systems: Constitutionalno fever or chills ENTno blurred vision, no double vision, no epistaxis, no sore throat Respiratoryno cough, no wheezing. Shortness of breath with exertion Cardiacno palpitations, no chest pain, no syncope Ross nausea, diarrhea, melena, hematochezia. He apparently vomits however after each meal GUno urinary retention, no urinary incontinence, no dysuria, no hematuria Musculoskeletalno joint pain, no muscle tenderness Skinno bruising, no rashes, no pruritus Neurono isolated weakness, no paresthesia, no weakness Psychno depression, no anxiety Physical Exam 2 Physical Exam: General-alert and oriented x2, no fever, no chills HEENT-head atraumatic and normocephalic, pupils equal and reactive to light, extraocular muscles intact Neck-no lymphadenopathy or thyromegaly, trachea midline Chest-bibasilar inspiratory rales. No wheezing. No rhonchi Cardiac-regular rate and rhythm, normal S1 and S2 Abdomen-normal bowel sounds, no hepatosplenomegaly Extremities-no cyanosis, clubbing, or edema Neuro-cranial nerves II through XII intact, motor and sensory function within normal limits, strength symmetrical with generalized weakness, no focal deficits Psych-normal affect, normal mood Results & Data Results & Data Vital Signs (Past 12 Hours) Vital Signs Temp Pulse Pulse Resp BP BP Pulse Ox 04/21/24 13:50 79 04/21/24 11:55 36.3 C L 82 16 92/52 L 92 04/21/24 09:55 04/21/24 07:48 36.4 C L 93 H 16 104/57 L 96 04/21/24 06:53 96 H 04/21/24 03:01 36.4 C L 96 H 18 115/62 95 O2 Del Method O2 Flow Rate 04/21/24 13:50 04/21/24 11:55 Nasal Cannula 2 04/21/24 09:55 Nasal Cannula 1 04/21/24 07:48 Nasal Cannula 2 04/21/24 06:53 04/21/24 03:01 Nasal Cannula 1 Laboratory Results 04/20/24 06:28 04/21/24 08:55 PG Care Time/CCT Total # of Minutes Spent Total Time Spent with Patient: Total time spent is greater than 50% in coordination of care (as documented) at patient's floor/unit and/or counseling patient: Coding Level of Care Code 53442 SUB INP/OBS CARE 350MIN Diagnoses ELISABETH (acute kidney injury) N17.9 Acute diastolic CHF (congestive heart failure) I50.31 Acute respiratory failure with hypoxia J96.01 Hypomagnesemia E83.42 Weakness R53.1 Melanoma C43.9 Vomiting R11.10 Encephalopathy G93.40
[2024-04-22 07:06] LABS: BUN Creatinine Ratio 11.1 (10-20); Calcium 12.4 mg/dl (8.6-10.3); Creatinine Clr Calc Pharmacy 33.1 ml/min; Magnesium 1.9 mg/dl (1.7-2.4)
--- NOTE | 2024-04-22 07:58 | XRay Report ---
EXAM: XR chest 1V portable CLINICAL HISTORY: CHF PORTABLE BME/KAA TECHNIQUE: An X-ray image of the chest is obtained in AP projection. COMPARISON: 04/20/2024. FINDINGS: Pulmonary Parenchyma: Prominent bronchovascular markings. Less prominent compared to prior study. Partial obliteration of left costophrenic angle. Likely due to mild pleural effusion. Less prominent compared to prior study. Less prominent lower zone opacities, which was noted in the prior study dated on 04/20/2024. Disease regression. No evidence of right sided pleural effusion or pleural thickening. Heart and Mediastinum: Unchanged cardiomegaly. No mediastinal widening or masses. No hilar or mediastinal lymphadenopathy. Bony Thorax: Degenerative changes of the visualized skeleton. Unchanged. Bilateral glenohumeral prosthesis. Unchanged. No fractures. Soft Tissues: Right-sided central line is noted. Unchanged. Soft tissues overlying the chest wall are unremarkable. IMPRESSION: 1. Findings likely represent pulmonary congestion. Less prominent compared to previous study. Disease regression. Need clinical correlation. 2. Cardiomegaly. Electronically signed by Robert Gregorio 04-22-2024 07:58 AM
[2024-04-22] MEDS: HEPARIN SOD 5,000 UNIT/0.5 ML VIAL SQ SCH (10:59)
[2024-04-22] MEDS: SODIUM CHLORIDE 0.9% 1,000 ML IV SCH (11:04)
--- NOTE | 2024-04-22 12:18 | Hospitalist Progress Note ---
Date of Service April 22, 2024 Assessment & Plan (1) ELISABETH (acute kidney injury): Plan: Patient presents with worsening nausea/vomiting and increasing confusion, found to have acute kidney injury with creatinine initially 1.3 in the setting of stage III CKD He was hydrated with IV fluids but then was thought to have developed acute on chronic HFpEF-he was given Lasix 60 Mg IV twice daily for 2 days and creatinine has risen further to 2.0 Bladder scan today with postvoid residual less than [address] abdomen/pelvis on admission showed stable bilateral parapelvic, periureteral, and perinephric edema, no stones or hydronephrosis. UA with trace protein, positive nitrate, 1+ bilirubin, trace LE, 0 WBC, 3-5 RBC, 11-20 hyaline cast, 3-5 epithelial cells, and uric acid crystals Urine culture mixed organisms Now also with CT contrast given on admission with CT scan Appreciate nephrology consultation-could be contrast-induced nephropathy versus hypercalcemia induced ELISABETH Nonoliguric Follow BMP, urine output Renally dose medications-decrease allopurinol to 100 mg daily. Discontinue furosemide, magnesium oxide, and hold home potassium (2) Hypercalcemia: Plan: Moderate in nature with corrected serum calcium 13 on admission and continues to be high. Could be in the setting of acute kidney injury Could be contributing to his encephalopathy and his acute kidney injury Not improving with IV fluids and loop diuretics Checked PTH-appropriately low. Checked vitamin D level which is mildly low. Fairly recent free kappa lambda light chains was only mildly abnormal and not considered to be significant Nonparathyroid mediated-check parathyroid related protein given history of melanoma Consider bone scan with history of melanoma as per my discussion with oncology although no bony lesions seen on CT of the chest, abdomen, and pelvis Appreciate nephrology consultation-give denosumab 60 Mg x 1 and monitor BMP Give 1 L normal saline Repeat urinalysis given ongoing encephalopathy and fever on 04/19 Check SPEP, UPEP (3) Encephalopathy: Plan: Could be related to acute kidney injury, hypercalcemia. Also with recent hi story of checkpoint inhibitor induced encephalitis and was on high-dose steroids It is unclear when exactly he stopped the steroids but he has not been on them for at least a month as per . Discussed with oncology-resume Solu-Medrol 1 mg/kg split twice daily and monitor for improvement Check repeat UA to look for infection given fever on 04/[address] with irregular consolidation at the bases but seems improved from previous so not likely pneumonia Continue supportive care, promote good sleep/wake cycles Correcting calcium as above (4) Vomiting: Plan: Chronic, acutely worsened x 3 days prior to admission Possible gastroparesis? He has been treated with Reglan in the past but he does not have a history of diabetes Consult speech therapy in case this is a swallowing issue He may end up needing a barium swallow and/or GI consultation Discontinue Reglan in case this is worsening his encephalopathy (5) Hypomagnesemia: Plan: Chronic, possibly acutely worsened due to vomiting, poor p.o. intake. 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 He was then placed back on Coumadin but this was discontinued during her recent hospitalization for unclear reasons He is high risk for VTE-start heparin SQ Plan Chronic stable diagnoses: Gout - Continue allopurinol but reduce dose for acute kidney injury Iron deficiency anemia continue ferrous sulfate HTN - Continue metoprolol VTE ppx: SCDs, add heparin SQ Code status: DNR/DNI Dispo: Continued stay med/tele Discussed care with his at the bedside on 04/22 Admission and Anticipated Discharge Date Admission Date: April 17, 2024 Subjective Patient was seen on 2 occasions today. The first time in the morning, he was very lethargic, would answer some of my questions but would not open his eyes. He denied pain. He reported he was feeling "some good and some bad." When I came back to see him later in the day to discuss his care with his at the bedside, he was out of bed to chair and much more awake and alert but still confused and not very conversational. I discussed his care with his oncologist on the phone as well as with nephrology I also discussed his care with the dietitian. Patient's reports he has been having frequent vomiting of food for months and wonders if his esophagus needs to be stretched out Telemetry with normal sinus rhythm with rates in the 90s to 100s Physical Exam Constitutional: well developed and + obese Respiratory: normal respiratory effort, lungs clear to auscultation Cardiovascular: Rate/Rhythm: regular rate and regular rhythm Heart Sounds: no murmur Extremities: + edema (Trace edema legs bilaterally) Gastrointestinal (Abdomen): Inspection/Auscultation: normal bowel sounds; abdomen not distended Percussion/Palpation: abdomen soft; abdomen nontender Psychiatric: Orientation: + not alert and + not oriented x 3 Motor Behavior: + tremor (Right sided upper extremity resting tremor) Results & Data Results & Data Vital Signs (Past 12 Hours) Vital Signs Temp Pulse Pulse Resp BP BP Pulse Ox 04/22/24 11:45 36.4 C L 101 H 16 100/63 96 04/22/24 09:26 04/22/24 07:51 36.5 C 71 20 101/56 L 92 04/22/24 07:27 100 H 04/22/24 04:07 36.5 C 62 16 107/52 L 93 O2 Del Method O2 Flow Rate 04/22/24 11:45 Nasal Cannula 3 04/22/24 09:26 Nasal Cannula 3 04/22/24 07:51 Nasal Cannula 3 04/22/24 07:27 04/22/24 04:07 Nasal Cannula 2 Laboratory Results BMP, calcium, PTH, vitamin D levels reviewed PG Care Time/CCT Total # of Minutes Spent Total Time Spent with Patient: Total time spent is greater than 50% in coordination of care (as documented) at patient's floor/unit and/or counseling patient: Coding Level of Care Code 19832 SUB INP/OBS CARE 3/50MIN Diagnoses ELISABETH (acute kidney injury) N17.9 Hypercalcemia E83.52 Encephalopathy G93.40 Vomiting R11.10 Hypomagnesemia E83.42 Weakness R53.1 Melanoma C43.9 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
[2024-04-22] MEDS ORDERED: methylPREDNISolone 125 MG/2 ML VIAL IV SCH (12:25)
[2024-04-22] MEDS: methylPREDNISolone 50 MG in SYRINGE 0 ML IV SCH (14:38)
--- NOTE | 2024-04-22 16:53 | Nephrology Consultation ---
Date of Consultation April 22, 2024 Assessment & Plan (1) ELISABETH (acute kidney injury): * ELISABETH likely due to combination of contrast-induced nephropathy, hypercalcemia * Electrolyte balance is acceptable. Patient is nonoliguric. 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 Use loop diuretic as needed to avoid CHF and enhance urinary calcium excretion * Given ELISABETH, will avoid bisphosphonate therapy. Will provide denosumab 60 mg SQ x 1 and monitor response History of Present Illness Reason for Consultation: ELISABETH/CKD, hypercalcemia Attending Physician: Marizol Ramirez MD History of Present Illness Mr. Maldonado is a 78-year-old white male who is seen at the request of [facility] hospitalist service for evaluation of ELISABETH/CKD and hypercalcemia. Patient is let hargic and unable to provide any medical history. Information for the HPI is obtained from review of the EMR. HPI summarized as follows: Mr. Maldonado has CKD stage G3a (moderate impairment). Baseline creatinine has been 1.3 w/ EGFR 54 cc/minute. Prior evaluation has revealed a non-nephritic urine sediment. Urinary protein has been low-grade. Free kappa lambda light chain ratio has been within normal limits. 01/26 renal ultrasound revealed mild renal asymmetry with moderate cortical thinning but no obstruction. Patient's renal impairment has been attributed to microvascular disease. Mr. Maldonado's medical history is also significant for hypertension, 4 cm thoracic aortic aneurysm, history of antiphospholipid antibodies (failed warfarin therapy, transition to Lovenox), history of PE. Mr. Maldonado was diagnosed with metastatic melanoma. In January 2023 he was started on Keytruda therapy. 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 Keytruda was discontinued and patient has required prolonged steroid therapy. He was admitted to [facility] 04/17/2024 due to several days of recurrent nausea vomiting and weakness. On admission corrected serum calcium was 13. IV hydration was provided. Unfortunately patient developed mild CHF. IV fluids were discontinued and loop diuretic administered. Patient has improved from a respiratory perspective but serum calcium remains elevated and he now has evidence of mild ELISABETH/CKD. Creatinine has risen to 2.0. Admission labs revealed vitamin D of 22, PTH 5.7. Allergies Allergy/AdvReac Type Severity Reaction Status Date / Time gabapentin Allergy Intermediate Rash Verified 02/24/24 09:51 tramadol Allergy Intermediate Rash and Verified 02/24/24 09:51 itchiness hydrocodone Allergy Mild itchy Verified 02/24/24 09:51 oxycodone Allergy Mild itchy Verified 02/24/24 09:51 carbamazepine Allergy Unknown Unknown Verified 02/24/24 09:51 ciprofloxacin Allergy Unknown Unknown Verified 02/24/24 09:51 Home Medications Medication Instructions Recorded Confirmed Type acetaminophen 650 mg 650 mg PO Q4H PRN Pain 01/27/24 04/01/24 History tablet,extended release allopurinol 100 mg tablet 0 mg PO QAM 01/27/24 04/17/24 History sennosides 8.6 mg-docusate sodium 1 tab PO BID #60 tabs 02/06/24 04/17/24 Rx 50 mg tablet (Senokot-S) polyethylene glycol 3350 17 gram 17 g PO QAM 02/10/24 04/17/24 History oral powder packet (Miralax) furosemide 40 mg tablet 40 mg PO DAILY PRN weight 02/24/24 04/17/24 History gain/swelling pregabalin 50 mg capsule 50 mg PO DAILY 03/11/24 04/17/24 History metoclopramide HCl 5 mg tablet 5 mg PO BID PRN nausea and 03/24/24 04/17/24 Rx (Reglan) vomiting #6 tabs potassium citrate 10 mEq (1,080 0 meq PO BID 03/24/24 04/17/24 History mg) tablet,extended release ferrous sulfate 325 mg (65 mg 0 mg PO BIDM 04/17/24 04/17/24 History iron) tablet,delayed release metoprolol succinate 50 mg 0 mg PO QAM 04/17/24 04/17/24 History tablet,extended release 24 hr Patient History Medical History Obesity Encephalitis Pulmonary embolism on long-term anticoagulation therapy Atrial fibrillation and flutter Pulmonary embolism Constipated COVID-19 Osteoarthritis Surgical History History of left shoulder replacement History of right shoulder replacement History of total left knee replacement (TKR) History of total right knee replacement (TKR) with revision History of colonoscopy History of inguinal hernia repair History of cancer surgery Left side of neck resection + lymph node removal History of tooth extraction History of tonsillectomy and adenoidectomy History of sinus surgery History of cystoscopy History of cataract surgery bilateral History of back surgery L4-L5 with screws Family History Family/Other Diabetes Heart disease Nephrolithiasis Other No family history of adverse response to anesthesia Social History Smoking Status: Never smoker Second Hand Exposure: No; Do You Dip or Chew Tobacco: No; Hx Alcohol Use: No Hx Substance Use: No Preferred Language: Bengali Communication Ability: Effective Football Pad Repairer Required: No Beliefs That Will Affect Care: None Current Living Situation: Spouse current occupational status: retired Feels Safe at Home: Yes Safety Concerns: Feels Safe At This Time Seatbelt Use: always Assistive Devices: Cane, Oxygen - Continuous, Walker and Wheelchair Assistive Devices Comment: O2 PRN at home but reports say pt doesn't use it Review of Systems Review of Systems: Unobtainable due to cognitive status Physical Exam Constitutional: + altered mental status Eyes: PERRL, conjunctivae normal, anicteric sclerae ENMT: external ear and nose normal, oropharynx normal Neck: trachea midline, no thyromegaly Respiratory: normal respiratory effort, lungs clear to auscultation Cardiovascular: Rate/Rhythm: regular rate and regular rhythm Extremities: + edema (1+ pretibial pitting edema) Gastrointestinal (Abdomen): normal bowel sounds, soft, nontender, no hepatosplenomegaly Neurologic: Speech / Cognition: + abnormal cognition Results & Data Vital Signs (Past 12 Hours) Vital Signs Temp Pulse Pulse Resp BP Pulse Ox O2 Del Method 04/22/24 15:56 37.1 C 103 H 20 110/58 L 96 Nasal Cannula 04/22/24 14:21 85 04/22/24 11:45 36.4 C L 101 H 16 100/63 96 Nasal Cannula 04/22/24 09:26 Nasal Cannula 04/22/24 07:51 36.5 C 71 20 101/56 L 92 Nasal Cannula 04/22/24 07:27 100 H O2 Flow Rate 04/22/24 15:56 3 04/22/24 14:21 04/22/24 11:45 3 04/22/24 09:26 3 04/22/24 07:51 3 04/22/24 07:27 Laboratory Results Laboratory Results WBC 5.20 K/ul (4.8-10.8) 04/20/24 06:28 RBC 4.03 M/uL (4.70-6.10) L 04/20/24 06:28 Hgb 12.6 g/dl (14.0-18.0) L 04/20/24 06:28 Hct 38.7 % (42.0-52.0) L 04/20/24 06:28 MCV 96.0 fL (80.0-100.0) 04/20/24 06:28 MCH 31.3 pg (25.0-34.0) 04/20/24 06:28 MCHC 32.6 g/dL (32.0-36.0) 04/20/24 06:28 RDW Std Deviation 51.8 fL (36.4-46.3) H 04/20/24 06:28 RDW Coeff of Lisbeth 14.7 % (11.5-14.5) H 04/20/24 06:28 Plt Count 160 K/uL (130-400) 04/20/24 06:28 MPV 10.1 fL (9.4-12.4) 04/20/24 06:28 Immature Gran % (Auto) 0.1 % 04/17/24 15:47 Neut % (Auto) 45.9 % 04/17/24 15:47 Lymph % (Auto) 32.8 % 04/17/24 15:47 [place] % (Auto) 14.3 % 04/17/24 15:47 Eos % (Auto) 6.0 % 04/17/24 15:47 Baso % (Auto) 0.9 % 04/17/24 15:47 Neut # (Auto) 3.43 K/uL (1.40-6.50) 04/17/24 15:47 Lymph # (Auto) 2.45 K/uL (1.20-3.40) 04/17/24 15:47 [place] # (Auto) 1.07 K/uL (0.11-0.59) H 04/17/24 15:47 Eos # (Auto) 0.45 K/uL (0.00-0.50) 04/17/24 15:47 Baso # (Auto) 0.07 K/uL (0.00-0.20) 04/17/24 15:47 Immature Gran # (Auto) 0.01 K/uL (0.01-0.20) 04/17/24 15:47 PT 12.1 Seconds (9.0-12.0) H 04/17/24 16:25 INR 1.1 (0.9-1.1) 04/17/24 16:25 APTT 29 Seconds (21-31) 04/17/24 16:25 PTT Ratio 1.1 04/17/24 16:25 VBG pH 7.41 (7.36-7.41) 04/17/24 16:57 VBG pCO2 48 mmHg (38-50) 04/17/24 16:57 VBG pO2 48 mmHg 04/17/24 16:57 VBG HCO3 30 mmol/L 04/17/24 16:57 VBG O2 Saturation 77.9 % 04/17/24 16:57 VBG Base Excess 4.8 mEq/L 04/17/24 16:57 Sodium 141 mmol/L (136-145) 04/22/24 05:32 Potassium 4.0 mmol/L (3.5-5.1) 04/22/24 05:32 Chloride 102 mmol/L (98-107) 04/22/24 05:32 Carbon Dioxide 35 mmol/L (21-32) H 04/22/24 05:32 Anion Gap 4 (3-11) 04/22/24 05:32 BUN 23 mg/dl (6-23) 04/22/24 05:32 Creatinine 2.08 mg/dl (0.6-1.4) H D 04/22/24 05:32 Est Cr Clr Drug Dosing 33.1 ml/min 04/22/24 05:32 eGFR 31.79 04/22/24 05:32 BUN/Creatinine Ratio 11.1 (10-20) 04/22/24 05:32 Glucose 92 mg/dl (70-99(Fasting)) 04/22/24 05:32 POC Glucose 94 mg/dl (70-99) 04/22/24 12:08 Calcium 12.4 mg/dl (8.6-10.3) H* 04/22/24 05:32 Magnesium 1.9 mg/dl (1.7-2.4) 04/22/24 05:32 Total Bilirubin 2.0 mg/dl (0.2-1.0) H 04/17/24 15:47 AST 73 U/L (13-39) H 04/17/24 15:47 ALT 21 U/L (7-52) 04/17/24 15:47 Alkaline Phosphatase 119 U/L (34-104) H 04/17/24 15:47 Ammonia 40.0 umol/L (18-72) 04/17/24 16:57 Troponin I High Sens 6.1 pg/ml (0-20) 04/17/24 15:47 B-Natriuretic Peptide 50 pg/ml (0-100) 04/17/24 15:47 Total Protein 5.9 gm/dl (6.0-8.3) L 04/17/24 15:47 Albumin 3.1 gm/dl (3.4-5.0) L 04/17/24 15:47 Globulin 2.8 gm/dl (2.5-4.0) 04/17/24 15:47 Albumin/Globulin Ratio 1.1 (0.9-2) 04/17/24 15:47 Lipase 35 U/L (11-82) 04/17/24 15:47 25-OH Vitamin D Total 22.5 ng/ml (30-100) L 04/22/24 09:52 Procalcitonin 0.38 ng/ml (0-0.5) 04/17/24 21:20 PTH Intact 5.7 pg/ml (12.0-88.0) L 04/22/24 09:52 Urine Color Dark Yellow 04/17/24 18:20 Urine Appearance Cloudy (Clear) A 04/17/24 18:20 Urine pH 5.0 (4.5-7.5) 04/17/24 18:20 Ur Specific [place] 1.030 (1.000-1.030) 04/17/24 18:20 Urine Protein Trace (Negative) H 04/17/24 18:20 Urine Glucose (UA) Negative (Negative) 04/17/24 18:20 Urine Ketones Trace (Negative) H 04/17/24 18:20 Urine Blood Negative (Negative) 04/17/24 18:20 Urine Nitrite Positive (Negative) A 04/17/24 18:20 Urine Bilirubin 1+ (Negative) H 04/17/24 18:20 Urine Urobilinogen Negative (Negative) 04/17/24 18:20 Ur Leukocyte Esterase Trace (Negative) H 04/17/24 18:20 Urine WBC (Auto) 0-5 /hpf (0-5) 04/17/24 18:20 Urine RBC (Auto) 3-5 /hpf (0-2) H 04/17/24 18:20 U Hyaline Cast (Auto) 11- /lpf (0-2) H 04/17/24 18:20 U Epithel Cells (Auto) 3-5 /hpf (0-2) H 04/17/24 18:20 Urine Bacteria (Auto) None Seen (None Seen) 04/17/24 18:20 Uric Acid Crystals Present (None Prsent) A 04/17/24 18:20 Ur Random Creatinine 284.0 mg/dl 04/17/24 18:20 Ur Random Sodium 24 mmol/L 04/17/24 18:20 Adenovirus (PCR) Not Detected (NotDetected) 04/17/24 17:03 B. pertussis DNA (PCR) Not Detected (NotDetected) 04/17/24 17:03 B.parapertussis DNA PCR Not Detected (NotDetected) 04/17/24 17:03 C. pneumoniae DNA (PCR) Not Detected (NotDetected) 04/17/24 17:03 Coronavirus OC43 (PCR) Not Detected (NotDetected) 04/17/24 17:03 Coronavirus HKU1 (PCR) Not Detected (NotDetected) 04/17/24 17:03 Coronavirus 229E (PCR) Not Detected (NotDetected) 04/17/24 17:03 SARS-CoV-2 (PCR) Not Detected (NotDetected) 04/17/24 17:03 Coronavirus NL63 (PCR) Not Detected (NotDetected) 04/17/24 17:03 Human Metapneumovir PCR Not Detected (NotDetected) 04/17/24 17:03 Influenza Type A (PCR) Not Detected (NotDetected) 04/17/24 17:03 Influenza Type B (PCR) Not Detected (NotDetected) 04/17/24 17:03 M. pneumoniae (PCR) Not Detected (NotDetected) 04/17/24 17:03 Parainfluenza 1 (PCR) Not Detected (NotDetected) 04/17/24 17:03 Parainfluenza 2 (PCR) Not Detected (NotDetected) 04/17/24 17:03 Parainfluenza 3 (PCR) Not Detected (NotDetected) 04/17/24 17:03 Parainfluenza 4 (PCR) Not Detected (NotDetected) 04/17/24 17:03 RSV (PCR) Not Detected (NotDetected) 04/17/24 17:03 Entero/Rhino (PCR) Not Detected (NotDetected) 04/17/24 17:03 Impressions Abdomen/Pelvis CT 04/17/24 16:12 EXAM: CT Abdomen and Pelvis With Intravenous Contrast INDICATION: 3 days of vomiting. TECHNIQUE: Axial computed tomography images of the abdomen and pelvis with intravenous contrast. Sagittal and coronal reformatted images were created and reviewed. This CT exam was performed using one or more of the following dose reduction techniques: automated exposure control, adjustment of the mA and/or kV according to patient size, and/or use of iterative reconstruction technique. CONTRAST: 94 ml of Optiray 320 was administered intravenously. COMPARISON: 04/01/2024 FINDINGS: Limitations: None. Lung bases: No abnormality noted. Pleural space: Persistent but improved irregular consolidation noted in the lung bases with resolved pleural effusions. A pleural-based right anterior nodule is only minimally seen. The inferior portion is unchanged. Heart: No abnormality noted. Mediastinum: No abnormality noted. ABDOMEN: Liver: Stable markedly heterogeneous enhancement of the liver. Suggestion of nodular contour concerning for cirrhosis. No mass or ductal dilatation. Gallbladder and bile ducts: No calcified stones or surrounding fluid. Pancreas: Homogeneous enhancement. No mass, inflammation or ductal dilation. Spleen: No significant abnormality noted. Adrenals: No significant abnormality noted. Kidneys and ureters: Stable bilateral parapelvic, periureteral and perinephric edema. No stones or hydronephrosis. Stomach and bowel: Scattered moderate stool throughout the colon. Scattered diverticulosis. No diverticulitis or obstruction. There is improved presacral edema. PELVIS: Appendix: Well seen and appears normal. Bladder: Small amount of air noted in the urinary bladder. Reproductive: No abnormalities noted. ABDOMEN and PELVIS: Intraperitoneal space: No free air. No significant fluid collection. Bones/joints: Degenerative changes present throughout the spine. Intact posterior L4-S1 fusion hardware. No acute osseous abnormality noted. Soft tissues: There are small bilateral fat containing inguinal hernias. Vasculature: Atherosclerotic calcification of the aorta and branches. No aneurysm. Lymph nodes: No pathologically enlarged lymph nodes. IMPRESSION: 1. Previously identified catheter is no longer present. 2. Stable urinary tract inflammation. Small amount of residual air in the bladder may be related to recent catheterization. Mild cystitis not excluded. 3. Resolved basilar pleural effusions and improved basilar atelectasis. ACT 112: Negative or not required by law. Electronically signed by Tara Cervantes 04-17-2024 5:[address] 04/17/24 16:24 EXAM: CT Head Without Intravenous Contrast INDICATION: Altered mental status TECHNIQUE: Axial computed tomography images of the head/brain without intravenous contrast. Sagittal and/or coronal reformats are provided. Sagittal and coronal reformatted images were created and reviewed. This CT exam was performed using one or more of the following dose reduction techniques: automated exposure control, adjustment of the mA and/or kV according to patient size, and/or use of iterative reconstruction technique. COMPARISON: 04/01/2024 and 01/19/2024 FINDINGS: Limitations: None. Brain and extra-axial spaces: There is age appropriate cortical atrophy and chronic ischemic periventricular white matter hypodensity. No acute infarct, hemorrhage or mass noted. Stable dense bilateral basal ganglia calcification. Bones/joints: No acute changes. Soft tissues: No significant abnormality noted. Vasculature: No acute abnormality noted. Sinuses: Stable chronic destruction of the right sphenoid sinus which is opacified. Mastoid air cells: No mastoid effusion. Orbits: No significant abnormality noted. IMPRESSION: Cerebral atrophy. No acute changes. ACT 112: Negative or not required by law. Electronically signed by Tara Cervantes 04-17-2024 5:04 PM Chest X-Ray 04/22/24 07:00 EXAM: XR chest 1V portable CLINICAL HISTORY: CHF PORTABLE BME/KAA TECHNIQUE: An X-ray image of the chest is obtained in AP projection. COMPARISON: 04/20/2024. FINDINGS: Pulmonary Parenchyma: Prominent bronchovascular markings. Less prominent compared to prior study. Partial obliteration of left costophrenic angle. Likely due to mild pleural effusion. Less prominent compared to prior study. Less prominent lower zone opacities, which was noted in the prior study dated on 04/20/2024. Disease regression. No evidence of right sided pleural effusion or pleural thickening. Heart and Mediastinum: Unchanged cardiomegaly. No mediastinal widening or masses. No hilar or mediastinal lymphadenopathy. Bony Thorax: Degenerative changes of the visualized skeleton. Unchanged. Bilateral glenohumeral prosthesis. Unchanged. No fractures. Soft Tissues: Right-sided central line is noted. Unchanged. Soft tissues overlying the chest wall are unremarkable. IMPRESSION: 1. Findings likely represent pulmonary congestion. Less prominent compared to previous study. Disease regression. Need clinical correlation. 2. Cardiomegaly. Electronically signed by Robert Gregorio 04-22-2024 07:58 AM PG Care Time/CCT Total # of Minutes Spent Total Time Spent with Patient: Total time spent is greater than 50% in coordination of care (as documented) at patient's floor/unit and/or counseling patient: Coding Level of Care Code 40655 IN/OBS CONSULT LVL 5,80M Diagnoses ELISABETH (acute kidney injury) N17.9 Chronic kidney disease, stage III (moderate) N18.3 Hypercalcemia E83.52
[2024-04-22 22:29] LABS: Appearance Urine Clear (Clear); Bilirubin Urine Negative (Negative); Blood Urine Negative (Negative); Color Urine Yellow; Glucose Urine UA Negative (Negative); Ketones Urine Trace (Negative); Leukocyte Esterase Urine Negative (Negative); Nitrite Urine Negative (Negative); Protein Urine Negative (Negative); Specific Gravity Urine 1.011 (1.000-1.030); Urobilinogen Urine Negative (Negative); pH Urine 5.5 (4.5-7.5)
[2024-04-22] MEDS ORDERED: MICONAZOLE NITRATE POWDER 85 GM EXT PRN (23:04)
[2024-04-22 23:13] LABS: Hematocrit (blood only) 40.5 % (42.0-52.0); Hemoglobin 13.2 g/dl (14.0-18.0); Mean Corpuscular Hemoglobin 31.2 pg (25.0-34.0); Mean Corpuscular Hgb Conc 32.6 g/dL (32.0-36.0); Mean Corpuscular Volume 95.7 fL (80.0-100.0); Mean Platelet Volume 10.2 fL (9.4-12.4); Platelet Count 156 K/uL (130-400); RDW Coefficient of Variation 14.7 % (11.5-14.5); RDW Standard Deviation 52.3 fL (36.4-46.3); Red Blood Count 4.23 M/uL (4.70-6.10)
[2024-04-22 23:28] LABS: Albumin Level 2.7 gm/dl (3.4-5.0); BUN Creatinine Ratio 12.9 (10-20); Creatinine Clr Calc Pharmacy 35.5 ml/min; Magnesium 1.8 mg/dl (1.7-2.4); Phosphorus 4.3 mg/dl (2.5-4.9); Potassium 3.8 mmol/L (3.5-5.1)
[2024-04-23] MEDS ORDERED: METOCLOPRAMIDE HCL 5 MG TABLET PO PRN (07:30)
[2024-04-23] MEDS: allopurinoL 100 MG TAB PO SCH (08:40)
--- NOTE | 2024-04-23 08:46 | Nephrology Progress Note ---
Date of Service April 23, 2024 Assessment & Plan (1) ELISABETH (acute kidney injury): Plan: * ELISABETH likely due to combination of contrast-induced nephropathy, hypercalcemia * Electrolyte balance is acceptable. Patient is nonoliguric. 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 Use loop diuretic as needed to avoid CHF and enhance urinary calcium excretion * Pharmacy is working to obtain denosumab. If this cannot be given today, will administer one dose of calcitonin Admission and Anticipated Discharge Date Admission Date: April 17, 2024 Subjective Mr. Maldonado was evaluated in his hospital room this morning. He was awake but nonconversant. He did not appear to be in distress Review of Systems Review of Systems: Unobtainable due to cognitive status Physical Exam Constitutional: + altered mental status Eyes: PERRL, conjunctivae normal, anicteric sclerae ENMT: external ear and nose normal, oropharynx normal Neck: trachea midline, no thyromegaly Respiratory: normal respiratory effort, lungs clear to auscultation Cardiovascular: Rate/Rhythm: regular rate and regular rhythm Extremities: + edema (1+ pretibial pitting edema) Gastrointestinal (Abdomen): normal bowel sounds, soft, nontender, no hepatosplenomegaly Neurologic: Speech / Cognition: + abnormal cognition Results & Data Vital Signs (Past 12 Hours) Vital Signs Temp Pulse Pulse Resp BP Pulse Ox O2 Del Method 04/23/24 07:43 113 H 22 117/47 L 97 Nasal Cannula 04/23/24 07:26 Nasal Cannula 04/23/24 07:07 116 H 04/23/24 04:06 36.9 C 107 H 20 127/80 93 Nasal Cannula 04/23/24 00:03 Nasal Cannula 04/23/24 00:02 100/55 L 04/22/24 23:57 36.5 C 107 H 20 92/50 L 93 Nasal Cannula 04/22/24 22:28 115 H O2 Flow Rate 04/23/24 07:43 4 04/23/24 07:26 3 04/23/24 07:07 04/23/24 04:06 2 04/23/24 00:03 3 04/23/24 00:02 04/22/24 23:57 2 04/22/24 22:28 Laboratory Results Laboratory Results WBC 2.00 K/ul (4.8-10.8) L 04/22/24 22:52 RBC 4.23 M/uL (4.70-6.10) L 04/22/24 22:52 Hgb 13.2 g/dl (14.0-18.0) L 04/22/24 22:52 Hct 40.5 % (42.0-52.0) L 04/22/24 22:52 MCV 95.7 fL (80.0-100.0) 04/22/24 22:52 MCH 31.2 pg (25.0-34.0) 04/22/24 22:52 MCHC 32.6 g/dL (32.0-36.0) 04/22/24 22:52 RDW Std Deviation 52.3 fL (36.4-46.3) H 04/22/24 22:52 RDW Coeff of Lisbeth 14.7 % (11.5-14.5) H 04/22/24 22:52 Plt Count 156 K/uL (130-400) 04/22/24 22:52 MPV 10.2 fL (9.4-12.4) 04/22/24 22:52 Immature Gran % (Auto) 0.1 % 04/17/24 15:47 Neut % (Auto) 45.9 % 04/17/24 15:47 Lymph % (Auto) 32.8 % 04/17/24 15:47 [place] % (Auto) 14.3 % 04/17/24 15:47 Eos % (Auto) 6.0 % 04/17/24 15:47 Baso % (Auto) 0.9 % 04/17/24 15:47 Neut # (Auto) 3.43 K/uL (1.40-6.50) 04/17/24 15:47 Lymph # (Auto) 2.45 K/uL (1.20-3.40) 04/17/24 15:47 [place] # (Auto) 1.07 K/uL (0.11-0.59) H 04/17/24 15:47 Eos # (Auto) 0.45 K/uL (0.00-0.50) 04/17/24 15:47 Baso # (Auto) 0.07 K/uL (0.00-0.20) 04/17/24 15:47 Immature Gran # (Auto) 0.01 K/uL (0.01-0.20) 04/17/24 15:47 PT 12.1 Seconds (9.0-12.0) H 04/17/24 16:25 INR 1.1 (0.9-1.1) 04/17/24 16:25 APTT 29 Seconds (21-31) 04/17/24 16:25 PTT Ratio 1.1 04/17/24 16:25 VBG pH 7.41 (7.36-7.41) 04/17/24 16:57 VBG pCO2 48 mmHg (38-50) 04/17/24 16:57 VBG pO2 48 mmHg 04/17/24 16:57 VBG HCO3 30 mmol/L 04/17/24 16:57 VBG O2 Saturation 77.9 % 04/17/24 16:57 VBG Base Excess 4.8 mEq/L 04/17/24 16:57 Sodium 139 mmol/L (136-145) 04/22/24 22:52 Potassium 3.8 mmol/L (3.5-5.1) 04/22/24 22:52 Chloride 100 mmol/L (98-107) 04/22/24 22:52 Carbon Dioxide 31 mmol/L (21-32) 04/22/24 22:52 Anion Gap 8 (3-11) 04/22/24 22:52 BUN 25 mg/dl (6-23) H 04/22/24 22:52 Creatinine 1.94 mg/dl (0.6-1.4) H 04/22/24 22:52 Est Cr Clr Drug Dosing 35.5 ml/min 04/22/24 22:52 eGFR 34.57 04/22/24 22:52 BUN/Creatinine Ratio 12.9 (10-20) 04/22/24 22:52 Glucose 163 mg/dl (70-99(Fasting)) H 04/22/24 22:52 POC Glucose 94 mg/dl (70-99) 04/22/24 12:08 Calcium 12.0 mg/dl (8.6-10.3) H 04/22/24 22:52 Phosphorus 4.3 mg/dl (2.5-4.9) 04/22/24 22:52 Magnesium 1.8 mg/dl (1.7-2.4) 04/22/24 22:52 Total Bilirubin 2.0 mg/dl (0.2-1.0) H 04/17/24 15:47 AST 73 U/L (13-39) H 04/17/24 15:47 ALT 21 U/L (7-52) 04/17/24 15:47 Alkaline Phosphatase 119 U/L (34-104) H 04/17/24 15:47 Ammonia 40.0 umol/L (18-72) 04/17/24 16:57 Troponin I High Sens 6.1 pg/ml (0-20) 04/17/24 15:47 B-Natriuretic Peptide 50 pg/ml (0-100) 04/17/24 15:47 Total Protein 5.9 gm/dl (6.0-8.3) L 04/17/24 15:47 Albumin 2.7 gm/dl (3.4-5.0) L 04/22/24 22:52 Globulin 2.8 gm/dl (2.5-4.0) 04/17/24 15:47 Albumin/Globulin Ratio 1.1 (0.9-2) 04/17/24 15:47 Lipase 35 U/L (11-82) 04/17/24 15:47 25-OH Vitamin D Total 22.5 ng/ml (30-100) L 04/22/24 09:52 Procalcitonin 0.38 ng/ml (0-0.5) 04/17/24 21:20 PTH Intact 5.7 pg/ml (12.0-88.0) L 04/22/24 09:52 Urine Color Yellow 04/22/24 22:15 Urine Appearance Clear (Clear) 04/22/24 22:15 Urine pH 5.5 (4.5-7.5) 04/22/24 22:15 Ur Specific [place] 1.011 (1.000-1.030) 04/22/24 22:15 Urine Protein Negative (Negative) 04/22/24 22:15 Urine Glucose (UA) Negative (Negative) 04/22/24 22:15 Urine Ketones Trace (Negative) H 04/22/24 22:15 Urine Blood Negative (Negative) 04/22/24 22:15 Urine Nitrite Negative (Negative) 04/22/24 22:15 Urine Bilirubin Negative (Negative) 04/22/24 22:15 Urine Urobilinogen Negative (Negative) 04/22/24 22:15 Ur Leukocyte Esterase Negative (Negative) 04/22/24 22:15 Urine WBC (Auto) 0-5 /hpf (0-5) 04/17/24 18:20 Urine RBC (Auto) 3-5 /hpf (0-2) H 04/17/24 18:20 U Hyaline Cast (Auto) - /lpf (0-2) H 04/17/24 18:20 U Epithel Cells (Auto) 3-5 /hpf (0-2) H 04/17/24 18:20 Urine Bacteria (Auto) None Seen (None Seen) 04/17/24 18:20 Uric Acid Crystals Present (None Prsent) A 04/17/24 18:20 Ur Random Creatinine 284.0 mg/dl 04/17/24 18:20 Ur Random Sodium 24 mmol/L 04/17/24 18:20 Adenovirus (PCR) Not Detected (NotDetected) 04/17/24 17:03 B. pertussis DNA (PCR) Not Detected (NotDetected) 04/17/24 17:03 B.parapertussis DNA PCR Not Detected (NotDetected) 04/17/24 17:03 C. pneumoniae DNA (PCR) Not Detected (NotDetected) 04/17/24 17:03 Coronavirus OC43 (PCR) Not Detected (NotDetected) 04/17/24 17:03 Coronavirus HKU1 (PCR) Not Detected (NotDetected) 04/17/24 17:03 Coronavirus 229E (PCR) Not Detected (NotDetected) 04/17/24 17:03 SARS-CoV-2 (PCR) Not Detected (NotDetected) 04/17/24 17:03 Coronavirus NL63 (PCR) Not Detected (NotDetected) 04/17/24 17:03 Human Metapneumovir PCR Not Detected (NotDetected) 04/17/24 17:03 Influenza Type A (PCR) Not Detected (NotDetected) 04/17/24 17:03 Influenza Type B (PCR) Not Detected (NotDetected) 04/17/24 17:03 M. pneumoniae (PCR) Not Detected (NotDetected) 04/17/24 17:03 Parainfluenza 1 (PCR) Not Detected (NotDetected) 04/17/24 17:03 Parainfluenza 2 (PCR) Not Detected (NotDetected) 04/17/24 17:03 Parainfluenza 3 (PCR) Not Detected (NotDetected) 04/17/24 17:03 Parainfluenza 4 (PCR) Not Detected (NotDetected) 04/17/24 17:03 RSV (PCR) Not Detected (NotDetected) 04/17/24 17:03 Entero/Rhino (PCR) Not Detected (NotDetected) 04/17/24 17:03 Impressions Abdomen/Pelvis CT 04/17/24 16:12 EXAM: CT Abdomen and Pelvis With Intravenous Contrast INDICATION: 3 days of vomiting. TECHNIQUE: Axial computed tomography images of the abdomen and pelvis with intravenous contrast. Sagittal and coronal reformatted images were created and reviewed. This CT exam was performed using one or more of the following dose reduction techniques: automated exposure control, adjustment of the mA and/or kV according to patient size, and/or use of iterative reconstruction technique. CONTRAST: 94 ml of Optiray 320 was administered intravenously. COMPARISON: 04/01/2024 FINDINGS: Limitations: None. Lung bases: No abnormality noted. Pleural space: Persistent but improved irregular consolidation noted in the lung bases with resolved pleural effusions. A pleural-based right anterior nodule is only minimally seen. The inferior portion is unchanged. Heart: No abnormality noted. Mediastinum: No abnormality noted. ABDOMEN: Liver: Stable markedly heterogeneous enhancement of the liver. Suggestion of nodular contour concerning for cirrhosis. No mass or ductal dilatation. Gallbladder and bile ducts: No calcified stones or surrounding fluid. Pancreas: Homogeneous enhancement. No mass, inflammation or ductal dilation. Spleen: No significant abnormality noted. Adrenals: No significant abnormality noted. Kidneys and ureters: Stable bilateral parapelvic, periureteral and perinephric edema. No stones or hydronephrosis. Stomach and bowel: Scattered moderate stool throughout the colon. Scattered diverticulosis. No diverticulitis or obstruction. There is improved presacral edema. PELVIS: Appendix: Well seen and appears normal. Bladder: Small amount of air noted in the urinary bladder. Reproductive: No abnormalities noted. ABDOMEN and PELVIS: Intraperitoneal space: No free air. No significant fluid collection. Bones/joints: Degenerative changes present throughout the spine. Intact posterior L4-S1 fusion hardware. No acute osseous abnormality noted. Soft tissues: There are small bilateral fat containing inguinal hernias. Vasculature: Atherosclerotic calcification of the aorta and branches. No aneurysm. Lymph nodes: No pathologically enlarged lymph nodes. IMPRESSION: 1. Previously identified catheter is no longer present. 2. Stable urinary tract inflammation. Small amount of residual air in the bladder may be related to recent catheterization. Mild cystitis not excluded. 3. Resolved basilar pleural effusions and improved basilar atelectasis. ACT 112: Negative or not required by law. Electronically signed by Tara Cervantes 04-17-2024 5:[address] 04/17/24 16:24 EXAM: CT Head Without Intravenous Contrast INDICATION: Altered mental status TECHNIQUE: Axial computed tomography images of the head/brain without intravenous contrast. Sagittal and/or coronal reformats are provided. Sagittal and coronal reformatted images were created and reviewed. This CT exam was performed using one or more of the following dose reduction techniques: automated exposure control, adjustment of the mA and/or kV according to patient size, and/or use of iterative reconstruction technique. COMPARISON: 04/01/2024 and 01/19/2024 FINDINGS: Limitations: None. Brain and extra-axial spaces: There is age appropriate cortical atrophy and chronic ischemic periventricular white matter hypodensity. No acute infarct, hemorrhage or mass noted. Stable dense bilateral basal ganglia calcification. Bones/joints: No acute changes. Soft tissues: No significant abnormality noted. Vasculature: No acute abnormality noted. Sinuses: Stable chronic destruction of the right sphenoid sinus which is opacified. Mastoid air cells: No mastoid effusion. Orbits: No significant abnormality noted. IMPRESSION: Cerebral atrophy. No acute changes. ACT 112: Negative or not required by law. Electronically signed by Tara Cervantes 04-17-2024 5:04 PM Chest X-Ray 04/22/24 07:00 EXAM: XR chest 1V portable CLINICAL HISTORY: CHF PORTABLE BME/KAA TECHNIQUE: An X-ray image of the chest is obtained in AP projection. COMPARISON: 04/20/2024. FINDINGS: Pulmonary Parenchyma: Prominent bronchovascular markings. Less prominent compared to prior study. Partial obliteration of left costophrenic angle. Likely due to mild pleural effusion. Less prominent compared to prior study. Less prominent lower zone opacities, which was noted in the prior study dated on 04/20/2024. Disease regression. No evidence of right sided pleural effusion or pleural thickening. Heart and Mediastinum: Unchanged cardiomegaly. No mediastinal widening or masses. No hilar or mediastinal lymphadenopathy. Bony Thorax: Degenerative changes of the visualized skeleton. Unchanged. Bilateral glenohumeral prosthesis. Unchanged. No fractures. Soft Tissues: Right-sided central line is noted. Unchanged. Soft tissues overlying the chest wall are unremarkable. IMPRESSION: 1. Findings likely represent pulmonary congestion. Less prominent compared to previous study. Disease regression. Need clinical correlation. 2. Cardiomegaly. Electronically signed by Robert Gregorio 04-22-2024 07:58 AM PG Care Time/CCT Total # of Minutes Spent Total Time Spent with Patient: Total time spent is greater than 50% in coordination of care (as documented) at patient's floor/unit and/or counseling patient: Coding Level of Care Code 32354 SUB INP/OBS CARE 3/50MIN Diagnoses ELISABETH (acute kidney injury) N17.9 Chronic kidney disease, stage III (moderate) N18.3 Hypercalcemia E83.52
[2024-04-23 09:06] LABS: Hematocrit (blood only) 42.7 % (42.0-52.0); Hemoglobin 14.1 g/dl (14.0-18.0); Immature Granulocytes # (auto) 0.02 K/uL (0.01-0.20); Immature Granulocytes % (auto) 0.3 %; Lymphocytes # (auto) 0.98 K/uL (1.20-3.40); Lymphocytes % (auto) 14.5 %; Mean Corpuscular Hemoglobin 30.9 pg (25.0-34.0); Mean Corpuscular Volume 93.6 fL (80.0-100.0); Monocytes # (auto) 0.13 K/uL (0.11-0.59); Monocytes % (auto) 1.9 %; Neutrophils # (auto) 5.62 K/uL (1.40-6.50); Neutrophils % (auto) 83.3 %; Platelet Count 184 K/uL (130-400); RDW Coefficient of Variation 14.6 % (11.5-14.5); RDW Standard Deviation 50.2 fL (36.4-46.3); Red Blood Count 4.56 M/uL (4.70-6.10); White Blood Count 6.75 K/ul (4.8-10.8)
[2024-04-23] MEDS ORDERED: CALCITONIN SALMON 400 UNITS/2 ML SQ ONE (09:30)
[2024-04-23 09:47] LABS: BUN Creatinine Ratio 16.4 (10-20); Calcium 12.3 mg/dl (8.6-10.3); Creatinine Clr Calc Pharmacy 37.5 ml/min; Potassium 3.8 mmol/L (3.5-5.1)
[2024-04-23] MEDS: DENOSUMAB 60 MG/1 ML SYR SQ ONE (13:09)
--- NOTE | 2024-04-23 14:31 | Hospitalist Progress Note ---
Date of Service April 23, 2024 Assessment & Plan (1) ELISABETH (acute kidney injury): Plan: Patient presents with worsening nausea/vomiting and increasing confusion, found to have acute kidney injury with creatinine initially 1.3 in the setting of stage III CKD He was hydrated with IV fluids but then was thought to have developed acute on chronic HFpEF-he was given Lasix 60 Mg IV twice daily for 2 days and creatinine increased further to 2.0. 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 UA with trace protein, positive nitrate, 1+ bilirubin, trace LE, 0 WBC, 3-5 RBC, 11-20 hyaline cast, 3-5 epithelial cells, and uric acid crystals Urine culture mixed organisms Now also with CT contrast given on admission with CT scan Appreciate nephrology consultation-could be contrast-induced nephropathy versus hypercalcemia induced ELISABETH Nonoliguric Follow BMP, urine output Renally dose medications-decrease allopurinol to 100 mg daily. Discontinue furosemide, magnesium oxide, and hold home potassium Giving more IVFs (2) Hypercalcemia: Plan: Moderate in nature with corrected serum calcium 13 on admission and continues to be high. Could be in the setting of acute kidney injury Could be contributing to his encephalopathy and his acute kidney injury Not improving with IV fluids and loop diuretics Checked PTH-appropriately low. Checked vitamin D level which is mildly low. Fairly recent free kappa lambda light chains was only mildly abnormal and not considered to be significant Nonparathyroid mediated-check parathyroid related protein given history of melanoma Consider bone scan with history of melanoma as per my discussion with oncology although no bony lesions seen on CT of the chest, abdomen, and pelvis Appreciate nephrology consultation-give denosumab 60 Mg x 1 on 04/23 Give further normal saline Repeat urinalysis given ongoing encephalopathy and fever on 04/19 is negative for infection Checked SPEP, UPEP and parathyroid related protein-pending Follow BMP (3) Encephalopathy: Plan: Could be related to acute kidney injury, hypercalcemia. Also with recent history of checkpoint inhibitor induced encephalitis and was on high-dose steroids It is unclear when exactly he stopped the steroids but he has not been on them for at least a month as per . Discussed with oncology-resumed Solu-Medrol 1 mg/kg split twice daily on 04/22 and monitor for improvement-definitely improved this far but not back to baseline Chest CT with irregular consolidation at the bases but seems improved from previous so not likely pneumonia. No evidence of infection Continue supportive care, promote good sleep/wake cycles Correcting calcium as above (4) Vomiting: Plan: Chronic, acutely worsened x 3 days prior to admission Possible gastroparesis? He has been treated with Reglan in the past but he does not have a history of diabetes Consult speech therapy in case this is a swallowing issue-no trouble swallowing Seems to be doing better, no N/V, since starting minced and moist diet He may end up needing a barium swallow and/or GI consultation (5) Hypomagnesemia: Plan: Chronic, possibly acutely worsened due to vomiting, poor p.o. intake. 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 He was then placed back on Coumadin but this was discontinued during her recent hospitalization for unclear reasons He is high risk for VTE-start heparin SQ Plan Chronic stable diagnoses: Gout - Continue allopurinol but reduce dose for acute kidney injury Iron deficiency anemia continue ferrous sulfate HTN - Continue metoprolol VTE ppx: SCDs, add heparin SQ Code status: DNR/DNI Dispo: Continued stay but downgrade to med/surg Discussed care with his at the bedside on 04/23 Admission and Anticipated Discharge Date Admission Date: April 17, 2024 Subjective More awake and alert today, can carry on simple conversational greetings but otherwise thinks he is in "Person" and when asked what year it was, states "is it Person?" Does admit to pain in his bottom Is eating but appetite not great as per . Is confused Tele with NSR, ST in to 110s Physical Exam Constitutional: well developed and + obese Respiratory: normal respiratory effort, lungs clear to auscultation Cardiovascular: Rate/Rhythm: regular rate and regular rhythm Heart Sounds: no murmur Extremities: + edema (Trace edema legs bilaterally) Gastrointestinal (Abdomen): Inspection/Auscultation: normal bowel sounds; abdomen not distended Percussion/Palpation: abdomen soft; abdomen nontender Psychiatric: Orientation: alert and oriented to person; + not oriented to place and + not oriented to time Motor Behavior: + tremor (Right sided upper extremity resting tremor) Results & Data Results & Data Vital Signs (Past 12 Hours) Vital Signs Temp Pulse Pulse Resp BP Pulse Ox O2 Del Method 04/23/24 11:38 36.3 C L 118 H 22 124/68 92 Nasal Cannula 04/23/24 07:43 113 H 22 117/47 L 97 Nasal Cannula 04/23/24 07:26 Nasal Cannula 04/23/24 07:07 116 H 04/23/24 04:06 36.9 C 107 H 20 127/80 93 Nasal Cannula O2 Flow Rate 04/23/24 11:38 4 04/23/24 07:43 4 04/23/24 07:26 3 04/23/24 07:07 04/23/24 04:06 2 Laboratory Results CBC, CMP reviewed PG Care Time/CCT Total # of Minutes Spent Total Time Spent with Patient: Total time spent is greater than 50% in coordination of care (as documented) at patient's floor/unit and/or counseling patient: Coding Level of Care Code 24920 SUB INP/OBS CARE 2/35MIN Diagnoses ELISABETH (acute kidney injury) N17.9 Hypercalcemia E83.52 Encephalopathy G93.40 Vomiting R11.10 Hypomagnesemia E83.42 Weakness R53.1 Melanoma C43.9 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
[2024-04-23] MEDS: INFLUENZA VACC TS2024-25(65y+)/PF (IIV3) 0.5mL Syr IM ONE (15:44)
[2024-04-24 06:33] LABS: BUN Creatinine Ratio 21.1 (10-20); Calcium 11.8 mg/dl (8.6-10.3); Creatinine Clr Calc Pharmacy 40.2 ml/min; Potassium 3.7 mmol/L (3.5-5.1)
--- NOTE | 2024-04-24 08:49 | Nephrology Progress Note ---
Date of Service April 24, 2024 Assessment & Plan (1) ELISABETH (acute kidney injury): Plan: * ELISABETH likely due to combination of contrast-induced nephropathy, hypercalcemia * Electrolyte balance is acceptable. Patient is nonoliguric. 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 Use loop diuretic as needed to avoid CHF and enhance urinary calcium excretion * Denosumab 60 mg SQ x1 administered yesterday afternoon. Ca now slightly improved. Will continue to monitor Admission and Anticipated Discharge Date Admission Date: April 17, 2024 Subjective Mr. Maldonado was evaluated in his hospital room this morning. He was awake but nonconversant. He did not appear to be in distress Review of Systems Review of Systems: Unobtainable due to cognitive status Physical Exam Constitutional: + altered mental status Eyes: PERRL, conjunctivae normal, anicteric sclerae ENMT: external ear and nose normal, oropharynx normal Neck: trachea midline, no thyromegaly Respiratory: normal respiratory effort, lungs clear to auscultation Cardiovascular: Rate/Rhythm: regular rate and regular rhythm Extremities: + edema (1+ pretibial pitting edema) Gastrointestinal (Abdomen): normal bowel sounds, soft, nontender, no hepatosplenomegaly Neurologic: Speech / Cognition: + abnormal cognition Results & Data Vital Signs (Past 12 Hours) Vital Signs Pulse BP O2 Del Method O2 Flow Rate FiO2 04/24/24 08:01 Nasal Cannula 3 04/24/24 07:37 114 H 164/93 H 04/23/24 21:00 Nasal Cannula 3 Laboratory Results Laboratory Results - last 24 hr 04/23/24 04/23/24 04/24/24 08:47 09:59 05:39 WBC 6.75 RBC 4.56 L Hgb 14.1 Hct 42.7 MCV 93.6 MCH 30.9 MCHC 33.0 RDW Std Deviation 50.2 H RDW Coeff of Lisbeth 14.6 H Plt Count 184 MPV 10.0 Immature Gran % (Auto) 0.3 Neut % (Auto) 83.3 Lymph % (Auto) 14.5 [place] % (Auto) 1.9 Eos % (Auto) 0.0 Baso % (Auto) 0.0 Neut # (Auto) 5.62 Lymph # (Auto) 0.98 L [place] # (Auto) 0.13 Eos # (Auto) 0.00 Baso # (Auto) 0.00 Immature Gran # (Auto) 0.02 Sodium 141 139 Potassium 3.8 3.7 Chloride 100 101 Carbon Dioxide 31 30 Anion Gap 10 8 BUN 30 H 36 H Creatinine 1.83 H 1.71 H Est Cr Clr Drug Dosing 37.5 40.2 eGFR 37.07 40.22 BUN/Creatinine Ratio 16.4 21.1 H Glucose 156 H 133 H Calcium 12.3 H* 11.8 H Ammonia Cancelled 21.0 Total Protein (PEP) Pending Albumin (PEP) Pending [id number] Pending Trbvl-6-Zpgnrbhmy Pending Gadd-2-Bybsltlx Pending Ldyq-6-Rzevhpwr Pending Gamma Globulins Pending Monoclonal Peak 3 Pending Ser Monoclonl Protein Pending Ser Monoclonal Prot 2 Pending PEP Interpretation Pending Serum Immunofixation Pending PG Care Time/CCT Total # of Minutes Spent Total Time Spent with Patient: Total time spent is greater than 50% in coordination of care (as documented) at patient's floor/unit and/or counseling patient: Coding Level of Care Code 71092 SUB INP/OBS CARE 3/50MIN Diagnoses ELISABETH (acute kidney injury) N17.9 Chronic kidney disease, stage III (moderate) N18.3 Hypercalcemia E83.52
[2024-04-24] MEDS ORDERED: DENOSUMAB 60 MG/1 ML SYR SQ ONE (12:00)
--- NOTE | 2024-04-24 13:21 | Hospitalist Progress Note ---
Date of Service April 24, 2024 Assessment & Plan (1) ELISABETH (acute kidney injury): Plan: Patient presents with worsening nausea/vomiting and increasing confusion, found to have acute kidney injury with creatinine initially 1.3 in the setting of stage III CKD He was hydrated with IV fluids but then was thought to have developed acute on chronic HFpEF-he was given Lasix 60 Mg IV twice daily for 2 days and creatinine increased further to 2.0. Now continues to be improving after receiving IVFs with project analyst down further to 1.71, making urine Bladder scan normal/acceptable amount CT abdomen/pelvis on admission showed stable bilateral parapelvic, periureteral, and perinephric edema, no stones or hydronephrosis. UA with trace protein, positive nitrate, 1+ bilirubin, trace LE, 0 WBC, 3-5 RBC, 11-20 hyaline cast, 3-5 epithelial cells, and uric acid crystals Urine culture mixed organisms Repeat urinalysis negative for infection or casts With CT contrast given on admission with CT scan Appreciate nephrology consultation-could be contrast-induced nephropathy versus hypercalcemia induced ELISABETH Nonoliguric Continue to follow BMP, urine output Renally dose medications-decreased allopurinol to 100 mg daily. Discontinued furosemide, magnesium oxide, and holding home potassium. Could restart loop diuretic as needed as per nephrology to prevent volume overload Treating hypercalcemia as below (2) Hypercalcemia: Plan: Moderate in nature with corrected serum calcium 13 on admission and continued to be elevated despite IV fluids and loop diuretics Could be in the setting of acute kidney injury Likely contributing to his encephalopathy and his acute kidney injury Checked PTH-appropriately low. Checked vitamin D level which is mildly low. Fairly recent free kappa lambda light chains was only mildly abnormal and not considered to be significant This is Non parathyroid mediated-checked parathyroid related protein given history of melanoma-pending Consider bone scan with history of melanoma as per my discussion with oncology although no bony lesions seen on CT of the chest, abdomen, and pelvis Appreciate nephrology consultation-gave further normal saline and gave denosumab 60 Mg x 1 on 04/23 (avoiding bisphosphonates due to acute kidney injury) Calcium finally now improving down to 11.8 Checked SPEP, UPEP and parathyroid related protein-pending Follow BMP Can give Lasix as needed to prevent volume overload and to help with hypercalcemia (3) Encephalopathy: Plan: Could be related to acute kidney injury, hypercalcemia. Also with recent history of checkpoint inhibitor induced encephalitis and was on high-dose steroids It is unclear when exactly he stopped the steroids but he has not been on them for at least a month as per . Discussed with oncology-resumed Solu-Medrol 1 mg/kg split twice daily on 04/22 and -definitely improved since then but not back to baseline Chest CT with irregular consolidation at the bases but seems improved from previous so not likely pneumonia. No evidence of infection otherwise Continue supportive care, promote good sleep/wake cycles Correcting calcium as above (4) Vomiting: Plan: Chronic, acutely worsened x 3 days prior to admission Possible gastroparesis? He has been treated with Reglan in the past but he does not have a history of diabetes Consult speech therapy in case this is a swallowing issue-no trouble swallowing Seems to be doing better, no N/V, since starting minced and moist diet and treating hypercalcemia and giving IV steroids He may end up needing a barium swallow and/or GI consultation at some point (5) Weakness: Plan: ongoing with recent hospitalizations and falls, could be related to relative adrenal insufficiency after being on steroids for encephalitis Could be related to hypercalcemia PT/OT to evaluate-needs rehab Is improving-is now out of bed to chair and can stand with two-person assist Treating other conditions as noted above (6) Melanoma: Plan: Stage III, S/p surgical excision and Keytruda adjuvant therapy- 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 He was then placed back on Coumadin but this was discontinued during her recent hospitalization for unclear reasons He is high risk for VTE-started heparin SQ Will with acute kidney injury to avoid Lovenox Plan Chronic stable diagnoses: Gout - Continue allopurinol but reduced dose for acute kidney injury Iron deficiency anemia continue ferrous sulfate HTN - Continue metoprolol VTE ppx: SCDs, heparin SQ Code status: DNR/DNI Dispo: Continued stay med/surg, discharged to rehab when bed available and medically stable-hopefully in the next 1 to 2 days Discussed care with his at the bedside on 04/23 and again on 04/24 Admission and Anticipated Discharge Date Admission Date: April 17, 2024 Subjective Patient more alert and interactive today but remains somewhat confused and only oriented x 1. He denies pain. His thinks he is definitely getting better each day. He is eating much more today and has not had any further nausea or vomiting Physical Exam Constitutional: well developed and + obese Respiratory: normal respiratory effort, lungs clear to auscultation Cardiovascular: Rate/Rhythm: regular rate and regular rhythm Heart Sounds: no murmur Extremities: + edema (Trace edema legs bilaterally) Gastrointestinal (Abdomen): Inspection/Auscultation: normal bowel sounds; abdomen not distended Percussion/Palpation: abdomen soft; abdomen nontender Psychiatric: Orientation: alert and oriented to person; + not oriented x 3, + not oriented to place and + not oriented to time Motor Behavior: n tremor Results & Data Results & Data Vital Signs (Past 12 Hours) Vital Signs Temp Pulse Pulse Resp BP BP Pulse Ox 04/24/24 11:35 36.6 C 90 17 134/68 97 04/24/24 08:01 04/24/24 07:37 114 H 164/93 H O2 Del Method FiO2 04/24/24 11:35 Nasal Cannula 04/24/24 08:01 Nasal Cannula 3 04/24/24 07:37 Laboratory Results BMP, ammonia level, calcium reviewed PG Care Time/CCT Total # of Minutes Spent Total Time Spent with Patient: Total time spent is greater than 50% in coordination of care (as documented) at patient's floor/unit and/or counseling patient: Coding Level of Care Code 73268 SUB INP/OBS CARE 2/35MIN Diagnoses ELISABETH (acute kidney injury) N17.9 Hypercalcemia E83.52 Encephalopathy G93.40 Vomiting R11.10 Weakness R53.1 Melanoma C43.9 Trigeminal neuralgia G50.0 prison (current) use of anticoagulants Z79.01
[2024-04-25 06:56] LABS: Albumin Level 3.1 gm/dl (3.4-5.0); BUN Creatinine Ratio 30.5 (10-20); Bilirubin,Total 1.1 mg/dl (0.2-1.0); Calcium 11.2 mg/dl (8.6-10.3); Creatinine Clr Calc Pharmacy 45.5 ml/min; Potassium 3.9 mmol/L (3.5-5.1); Total Protein 6.1 gm/dl (6.0-8.3)
[2024-04-25 07:57] LABS: Albumin 2.9 g/dL (3.8-4.8); Alpha 1 Globulin 0.3 g/dL (0.2-0.3); Alpha 2 Globulin 0.7 g/dL (0.5-0.9); Beta-1-Globulin 0.3 g/dL (0.4-0.6); Beta-2-Globulin 0.5 g/dL (0.2-0.5); Gamma Globulin 1.1 g/dL (0.8-1.7); Monoclonal Protein Band 1 DNR g/dL (NONE DETECTED); Monoclonal Protein Band 2 DNR g/dL (NONE DETECTED); Monoclonal Protein Band 3 DNR g/dL (NONE DETECTED); Total Protein 5.7 g/dL (6.1-8.1)
--- NOTE | 2024-04-25 08:41 | Nephrology Progress Note ---
Date of Service April 25, 2024 Assessment & Plan (1) ELISABETH (acute kidney injury): Plan: * ELISABETH likely due to combination of contrast-induced nephropathy, hypercalcemia * Electrolyte balance is acceptable. Patient is nonoliguric. 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 Use loop diuretic as needed to avoid CHF and enhance urinary calcium excretion * Denosumab 60 mg SQ x1 administered 04/24/24. Ca is trending down. Will continue to monitor Admission and Anticipated Discharge Date Admission Date: April 17, 2024 Subjective Mr. Maldonado was evaluated in his hospital room this morning. He was awake but oriented only to self. He was in no distress Review of Systems Review of Systems: Unobtainable due to cognitive status Physical Exam Constitutional: + altered mental status Eyes: PERRL, conjunctivae normal, anicteric sclerae ENMT: external ear and nose normal, oropharynx normal Neck: trachea midline, no thyromegaly Respiratory: normal respiratory effort, lungs clear to auscultation Cardiovascular: Rate/Rhythm: regular rate and regular rhythm Extremities: no edema Gastrointestinal (Abdomen): normal bowel sounds, soft, nontender, no hepatosplenomegaly Neurologic: Speech / Cognition: + abnormal cognition Results & Data Vital Signs (Past 12 Hours) Vital Signs Temp Pulse Resp BP Pulse Ox O2 Del Method O2 Flow Rate 04/25/24 07:41 36.5 C 94 H 16 155/91 H 90 Room Air 04/24/24 21:20 Nasal Cannula 3 Laboratory Results Laboratory Results - last 24 hr 04/22/24 04/23/24 04/25/24 22:15 08:47 05:49 Sodium 144 Potassium 3.9 Chloride 105 Carbon Dioxide 33 H Anion Gap 6 BUN 46 H Creatinine 1.51 H Est Cr Clr Drug Dosing 45.5 eGFR 46.69 BUN/Creatinine Ratio 30.5 H Glucose 123 H Calcium 11.2 H Total Bilirubin 1.1 H AST 65 H ALT 16 Alkaline Phosphatase 80 Total Protein 6.1 Total Protein (PEP) 5.7 L Albumin 3.1 L Albumin (PEP) 2.9 L Globulin 3.0 Albumin/Globulin Ratio 1.0 Uxrcw-1-Qqqkpzfjd 0.3 Nqhup-7-Fycbbqkjd 0.7 Yhmu-1-Uoygyjhn 0.3 L Fulw-9-Wspwvwas 0.5 Gamma Globulins 1.1 Monoclonal Peak 3 DNR Ser Monoclonl Protein DNR Ser Monoclonal Prot 2 DNR PEP Interpretation SEE NOTE Serum Immunofixation SEE NOTE Urine Immunofixation SEE NOTE 04/22/24 SIEP/UIEP - only faint indistinct bands reported 04/22/24 PTHrp - pending PG Care Time/CCT Total # of Minutes Spent Total Time Spent with Patient: Total time spent is greater than 50% in coordination of care (as documented) at patient's floor/unit and/or counseling patient: Coding Level of Care Code 12261 SUB INP/OBS CARE 3/50MIN Diagnoses ELISABETH (acute kidney injury) N17.9 Chronic kidney disease, stage III (moderate) N18.3 Hypercalcemia E83.52
--- NOTE | 2024-04-25 13:01 | Hospitalist Progress Note ---
Date of Service April 25, 2024 Assessment & Plan (1) ELISABETH (acute kidney injury): Plan: Patient presents with worsening nausea/vomiting and increasing confusion, found to have acute kidney injury with creatinine initially 1.3 in the setting of stage III CKD He was hydrated with IV fluids but then was thought to have developed acute on chronic HFpEF-he was given Lasix 60 Mg IV twice daily for 2 days and creatinine increased further to 2.0. Now renal function improving after receiving IVFs with policy writer sales down to 1.51, continues to be making urine Bladder scan normal/acceptable amount-not obstructed CT abdomen/pelvis on admission showed stable bilateral parapelvic, periureteral, and perinephric edema, no stones or hydronephrosis. UA with trace protein, positive nitrate, 1+ bilirubin, trace LE, 0 WBC, 3-5 RBC, 11-20 hyaline cast, 3-5 epithelial cells, and uric acid crystals Urine culture mixed organisms Repeat urinalysis negative for infection or casts With IV contrast given on admission with CT scan Appreciate nephrology consultation-could be contrast-induced nephropathy versus hypercalcemia induced ELISABETH Nonoliguric, continues to improve, hypercalcemia improving Continue to follow BMP, urine output Renally dose medications-decreased allopurinol to 100 mg daily. Discontinued furosemide, magnesium oxide, and holding home potassium. Could restart loop diuretic as needed as per nephrology to prevent volume overload as needed Continue treating hypercalcemia as below (2) Hypercalcemia: Plan: Moderate in nature with corrected serum calcium 13 on admission and continued to be elevated despite IV fluids and loop diuretics He is not on any medications that would be causing this-he has not been on HCTZ for quite some time as per his Could be in the setting of acute kidney injury versus being quite sedentary of the last 2 months Likely contributing to his encephalopathy and his acute kidney injury Checked PTH-appropriately low. Checked vitamin D level which is mildly low. Fairly recent free kappa lambda light chains was only mildly abnormal and not considered to be significant This is Non parathyroid mediated-checked parathyroid related protein given history of melanoma-pending Consider bone scan with history of melanoma as per my discussion with oncology although no bony lesions seen on CT of the chest, abdomen, and pelvis Serum immunofixation with faint borderline bands. UPEP also with faint bands but cannot be ruled out Will discuss results with his oncologist as well Appreciate nephrology consultation-gave further normal saline and gave denosumab 60 Mg x 1 on 04/23 (avoiding bisphosphonates due to acute kidney injury) Calcium now continues to improve after receiving denosumab and now down to 11.2 Follow-up on parathyroid related protein-pending Follow BMP daily Can give Lasix as needed to prevent volume overload and to help with hypercalcemia (3) Encephalopathy: Plan: Could be related to acute kidney injury, hypercalcemia. Also with recent history of checkpoint inhibitor induced encephalitis and was on high-dose steroids It is unclear when exactly he stopped the steroids but he has not been on them for at least a month as per . No evidence of infection anywhere-chest CT with irregular consolidation at the bases improved from previous and not likely pneumonia. Urinalysis negative for infection Discussed with oncology-resumed Solu-Medrol 1 mg/kg split twice daily on 04/22 and -continues to improve each day, but not back to baseline Continue supportive care, promote good sleep/wake cycles Correcting calcium as above With some ophthalmoplegia/nystagmus noted at times-check vitamin B1 level and start empiric thiamine (4) Vomiting: Plan: Chronic, acutely worsened x 3 days prior to admission Possible gastroparesis? He has been treated with Reglan in the past but he does not have a history of diabetes Consult speech therapy in case this is a swallowing issue-no trouble swallowing Seems to be doing better, no N/V in many days since starting minced and moist diet and treating hypercalcemia and giving IV steroids He may end up needing a barium swallow and/or GI consultation at some point (5) Weakness: Plan: ongoing with recent hospitalizations and falls, could be related to relative adrenal insufficiency after being on steroids for encephalitis Could be related to hypercalcemia PT/OT to evaluate-needs rehab Is improving-is now out of bed to chair and was able to walk 40 feet on 04/25 Treating other conditions as noted above (6) Melanoma: Plan: Stage III, S/p surgical excision and Keytruda adjuvant therapy- 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 He was then placed back on Coumadin but this was discontinued during her recent hospitalization for unclear reasons He is high risk for VTE-started heparin SQ while with acute kidney injury to avoid Lovenox Plan Chronic stable diagnoses: Gout - Continue allopurinol but reduced dose for acute kidney injury Iron deficiency anemia continue ferrous sulfate HTN - Continue metoprolol VTE ppx: SCDs, heparin SQ Code status: DNR/DNI Dispo: Continued stay med/surg, discharged to rehab when bed available and medically stable-hopefully in the next 1 to 2 days Discussed care with his at the bedside on 04/23 and again on 04/24 Admission and Anticipated Discharge Date Admission Date: April 17, 2024 Subjective Patient was seen at lunchtime and was taking a nap. He was difficult to awaken but once he did, he definitely seemed much more mentally clear and conversational than previous days. He still was only oriented x 1 and when asked where he was, he said "there are several." Nursing reports that he did walk 40 feet with physical therapy and was interested in looking out the window and was noted to be much improved than on previous days. He did eat his breakfast without any vomiting. Physical Exam Constitutional: well developed and + obese Eyes: + nystagmus (Occasional nystagmus with l ooking to the right) Respiratory: normal respiratory effort, lungs clear to auscultation Cardiovascular: Rate/Rhythm: regular rate and regular rhythm Heart Sounds: no murmur Extremities: + edema (Trace edema legs bilaterally) Gastrointestinal (Abdomen): Inspection/Auscultation: normal bowel sounds; abdomen not distended Percussion/Palpation: abdomen soft; abdomen nontender Neurologic: moves all extremities and + confused; no focal motor deficits Psychiatric: Orientation: alert and oriented to person; + not oriented x 3, + not oriented to place and + not oriented to time Motor Behavior: n tremor Results & Data Results & Data Vital Signs (Past 12 Hours) Vital Signs Temp Pulse Resp BP Pulse Ox O2 Del Method 04/25/24 07:41 36.5 C 94 H 16 155/91 H 90 Room Air Laboratory Results CMP, immunofixation, UPEP reviewed PG Care Time/CCT Total # of Minutes Spent Total Time Spent with Patient: Total time spent is greater than 50% in coordination of care (as documented) at patient's floor/unit and/or counseling patient: Coding Level of Care Code 94242 SUB INP/OBS CARE 2/35MIN Diagnoses ELISABETH (acute kidney injury) N17.9 Hypercalcemia E83.52 Encephalopathy G93.40 Vomiting R11.10 Weakness R53.1 Melanoma C43.9 Trigeminal neuralgia 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
[2024-04-25] MEDS: THIAMINE HCL 500 MG in SODIUM CHLORIDE 0.9% 50 ML IV SCH (15:21)
[2024-04-26 06:43] LABS: Hematocrit (blood only) 37.9 % (42.0-52.0); Hemoglobin 12.4 g/dl (14.0-18.0); Immature Granulocytes # (auto) 0.03 K/uL (0.01-0.20); Immature Granulocytes % (auto) 0.6 %; Lymphocytes # (auto) 0.75 K/uL (1.20-3.40); Lymphocytes % (auto) 14.9 %; Mean Corpuscular Hemoglobin 30.5 pg (25.0-34.0); Mean Corpuscular Hgb Conc 32.7 g/dL (32.0-36.0); Mean Corpuscular Volume 93.1 fL (80.0-100.0); Monocytes # (auto) 0.29 K/uL (0.11-0.59); Monocytes % (auto) 5.8 %; Neutrophils # (auto) 3.95 K/uL (1.40-6.50); Neutrophils % (auto) 78.7 %; Platelet Count 170 K/uL (130-400); RDW Coefficient of Variation 14.5 % (11.5-14.5); RDW Standard Deviation 49.6 fL (36.4-46.3); Red Blood Count 4.07 M/uL (4.70-6.10); White Blood Count 5.02 K/ul (4.8-10.8)
[2024-04-26 06:57] LABS: BUN Creatinine Ratio 33.3 (10-20); Calcium 10.2 mg/dl (8.6-10.3); Creatinine Clr Calc Pharmacy 54.5 ml/min; Potassium 3.9 mmol/L (3.5-5.1)
--- NOTE | 2024-04-26 08:36 | Nephrology Progress Note ---
Date of Service April 26, 2024 Assessment & Plan (1) ELISABETH (acute kidney injury): Plan: * ELISABETH resolved. This was likely due to combination of contrast-induced nephropathy, hypercalcemia * Electrolyte balance is acceptable. Patient is nonoliguric * No further nephrology evaluation indicated at this time. Will sign off. 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 Use loop diuretic as needed to avoid CHF and en stephanie urinary calcium excretion * Denosumab 60 mg SQ x1 administered 04/24/24. Ca is trending down Admission and Anticipated Discharge Date Admission Date: April 17, 2024 Subjective Mr. Maldonado was evaluated in his hospital room this morning. He was awake and sitting in a chair. Mr. Maldonado was oriented to self and month but thought he was in his PCP office. He denied fever, angina or dyspnea and reported that he was tolerating his diet Review of Systems Constitutional: no fever Eyes: no problem reported Ear, Nose, Mouth, Throat: no problem reported Respiratory: no cough and no dyspnea Cardiovascular: no chest pain Gastrointestinal: no abdominal pain, no nausea, no vomiting and no diarrhea/loose stools Genitourinary: no urinary hesitancy Physical Exam Constitutional: not in distress Eyes: PERRL, conjunctivae normal, anicteric sclerae ENMT: external ear and nose normal, oropharynx normal Neck: trachea midline, no thyromegaly Respiratory: normal respiratory effort, lungs clear to auscultation Cardiovascular: Rate/Rhythm: regular rate and regular rhythm Extremities: no edema Gastrointestinal (Abdomen): normal bowel sounds, soft, nontender, no hepatosplenomegaly Neurologic: Speech / Cognition: + abnormal cognition Results & Data Vital Signs (Past 12 Hours) Vital Signs Temp Pulse Resp BP Pulse Ox O2 Del Method 04/26/24 07:47 36.4 C L 77 16 169/87 H 93 Room Air 04/25/24 21:00 Room Air 04/25/24 20:54 36.4 C L 88 18 152/88 H 95 Room Air Laboratory Results Laboratory Results - last 24 hr 04/26/24 06:00 WBC 5.02 RBC 4.07 L Hgb 12.4 L Hct 37.9 L MCV 93.1 MCH 30.5 MCHC 32.7 RDW Std Deviation 49.6 H RDW Coeff of Lisbeth 14.5 Plt Count 170 MPV 10.0 Immature Gran % (Auto) 0.6 Neut % (Auto) 78.7 Lymph % (Auto) 14.9 [place] % (Auto) 5.8 Eos % (Auto) 0.0 Baso % (Auto) 0.0 Neut # (Auto) 3.95 Lymph # (Auto) 0.75 L [place] # (Auto) 0.29 Eos # (Auto) 0.00 Baso # (Auto) 0.00 Immature Gran # (Auto) 0.03 Sodium 140 Potassium 3.9 Chloride 104 Carbon Dioxide 32 Anion Gap 4 BUN 42 H Creatinine 1.26 Est Cr Clr Drug Dosing 54.5 eGFR 58.02 BUN/Creatinine Ratio 33.3 H Glucose 118 H Calcium 10.2 Magnesium 2.0 Whole Bld Vitamin B1 Pending PG Care Time/CCT Total # of Minutes Spent Total Time Spent with Patient: Total time spent is greater than 50% in coordination of care (as documented) at patient's floor/unit and/or counseling patient: Coding Level of Care Code 88295 SUB INP/OBS CARE 3/50MIN Diagnoses ELISABETH (acute kidney injury) N17.9 Chronic kidney disease, stage III (moderate) N18.3 Hypercalcemia E83.52
--- NOTE | 2024-04-26 12:20 | Hospitalist Progress Note ---
Date of Service April 26, 2024 Assessment & Plan (1) ELISABETH (acute kidney injury): Plan: Patient presents with worsening N/V and increasing confusion, found to have ELISABETH with creatinine initially 1.3 in the setting of stage III CKD He was hydrated with IV fluids but then was thought to have developed acute on chronic HFpEF-he was given Lasix 60 Mg IV twice daily for 2 days and creatinine increased further to 2.0. 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 UA with trace protein, positive nitrate, 1+ bilirubin, trace LE, 0 WBC, 3-5 RBC, 11-20 hyaline cast, 3-5 epithelial cells, and uric acid crystals Urine culture mixed organisms Repeat urinalysis negative for infection or casts With IV contrast given on admission with CT scan Appreciate nephrology consultation-could be contrast-induced nephropathy versus hypercalcemia induced ELISABETH Nonoliguric, continues to improve, hypercalcemia now reoslved Renally dose medications-decreased allopurinol to 100 mg daily. Held home furosemide, magnesium oxide, and potassium Will now restart lasix 20mg daily as per nephrology to prevent volume overload and will also help with hypercalcemia Continue treating hypercalcemia as below (2) Encephalopathy: Plan: Multifactorial related to ELISABETH, Keytruda-induced encephalitis, hypercalcemia, and suspected Wernicke's encephalopathy It is unclear when exactly he stopped the steroids for his encephaliatis, but he has not been on them for at least a month as per . No evidence of infection anywhere-chest CT with irregular consolidation at the bases improved from previous and not likely pneumonia. Urinalysis negative for infection Discussed with oncology-resumed steroids with Solu-Medrol 1 mg/kg split twice daily on 04/22--> had daily improvements prior to thiamine administration Started empiric high dose IV thiamine 04/25 and on 04/26 is remarkably completely back to normal mentation Hypercalcemia also treated and now resolved Continue supportive care, promote good sleep/wake cycles Continue thiamine supplementation and f/u B1 level when available Continue steroids but change from IV to prednisone 50mg daily until seen by Oncology (3) Hypercalcemia: Plan: Moderate in nature with corrected serum calcium 13 on admission and continued to be elevated despite IV fluids and loop diuretics He is not on any meds that would be causing this-he has not been on HCTZ for quite some time as per his Could be in the setting of acute kidney injury versus being quite sedentary of the last 2 months Likely contributing to his encephalopathy and his acute kidney injury Checked PTH-appropriately low. Checked vitamin D level which is mildly low. Fairly recent free kappa lambda light chains was only mildly abnormal and not considered to be significant This is Non parathyroid mediated-checked parathyroid related protein given history of melanoma-pending With h/o melanoma although no bony lesions seen on CT of the chest, abdomen, and pelvis Serum immunofixation with faint borderline bands. UPEP also with faint bands but cannot be ruled out-d/w Oncology who does not feel this is significant at this time but will monitor in future Appreciate nephrology consultation-gave normal saline and gave denosumab 60 Mg x 1 on 04/23 (avoiding bisphosphonates due to acute kidney injury) Calcium now normal Follow-up on parathyroid related protein-pending Follow BMP daily Now that ELISABETH resolved--> resume lower dose of Lasix 20mg daily to prevent volume overload and to help with hypercalcemia (4) Vomiting: Plan: Chronic for1-2 months, acutely worsened x 3 days prior to admission Not likely gastroparesis although he has been treated with Reglan in the past yet does not have a history of diabetes Consulted speech therapy in case this is a swallowing issue-no trouble swallowing Pt reports he was having severe nausea even with putting food to his lips Completely resolved with resolution of encephalopathy and hypercalcemia. Maybe also some component of adrenal insufficiency leading to vomiting- no N/V in many days -has been on minced and moist diet, treating hypercalcemia and encephalitis He may end up needing a barium swallow and/or GI consultation at some point as an outpt Change diet to easy to chew (from minced and moist) (5) Weakness: Plan: ongoing with recent hospitalizations and falls, related to relative adrenal insufficiency after being on steroids for encephalitis and could be related to hypercalcemia PT/OT to evaluate-needs rehab Is now much improved (6) Melanoma: Plan: Stage III, S/p surgical excision and Keytruda adjuvant therapy- 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 He was then placed back on Coumadin but this was discontinued during her recent hospitalization for unclear reasons He is high risk for VTE-started heparin SQ while with acute kidney injury to avoid Lovenox Plan Chronic stable diagnoses: Gout - Continue allopurinol but reduced dose for acute kidney injury Iron deficiency anemia continue ferrous sulfate HTN - Continue metoprolol VTE ppx: SCDs, heparin SQ Code status: DNR/DNI Dispo: Is now much improved and is medically stable for discharge--> still searching for SNF bed Discussed care with his at the bedside on 04/23 and again on 04/24 Admission and Anticipated Discharge Date Admission Date: April 17, 2024 Subjective Patient is significantly improved today. He is out of bed to chair and ambulating with 1 assist in the room as per nursing. He is awake alert and oriented x 3. He is eating and drinking, no nausea or vomiting. Says his bowels are moving and his bladder is working. He is anxious to return home. Physical Exam Constitutional: well developed and + obese Eyes: no nystagmus (Resolved) Respiratory: normal respiratory effort, lungs clear to auscultation Cardiovascular: Rate/Rhythm: regular rate and regular rhythm Heart Sounds: no murmur Extremities: + edema (Trace edema legs bilaterally) Gastrointestinal (Abdomen): Inspection/Auscultation: normal bowel sounds; abdomen not distended Percussion/Palpation: abdomen soft; abdomen nontender Neurologic: moves all extremities and awake; no focal motor deficits and not confused Psychiatric: Orientation: alert and oriented x 3 Motor Behavior: n tremor Results & Data Results & Data Vital Signs (Past 12 Hours) Vital Signs Temp Pulse Resp BP Pulse Ox O2 Del Method 04/26/24 07:47 36.4 C L 77 16 169/87 H 93 Room Air Laboratory Results CBC, CMP reviewed PG Care Time/CCT Total # of Minutes Spent Total Time Spent with Patient: Total time spent is greater than 50% in coordination of care (as documented) at patient's floor/unit and/or counseling patient: Coding Level of Care Code 86923 SUB INP/OBS CARE 235MIN Diagnoses ELISABETH (acute kidney injury) N17.9 Encephalopathy G93.40 Hypercalcemia E83.52 Vomiting R11.10 Weakness R53.1 Melanoma C43.9 Trigeminal neuralgia 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
[2024-04-26 15:59] VITALS: O2SAT 94
[2024-04-27 07:19] LABS: Albumin Globulin Ratio 1.1 (0.9-2); Albumin Level 2.8 gm/dl (3.4-5.0); BUN Creatinine Ratio 30.1 (10-20); Bilirubin,Total 1.1 mg/dl (0.2-1.0); Calcium 9.5 mg/dl (8.6-10.3); Globulin 2.6 gm/dl (2.5-4.0); Magnesium 1.9 mg/dl (1.7-2.4); Total Protein 5.4 gm/dl (6.0-8.3)
[2024-04-27] MEDS: predniSONE 50 MG TAB PO SCH (09:06)
[2024-04-27] MEDS: FUROSEMIDE 20 MG TAB PO SCH (09:23)
[2024-04-27 12:50] VITALS: PULSE 75; RESP 17; TEMP 97.7
--- NOTE | 2024-04-27 13:26 | Discharge Summary ---
Discharge Summary Date of Service April 27, 2024 Principal Dx & Hospital Course #1 = Principal Diagnosis (1) ELISABETH (acute kidney injury): Patient presents with worsening N/V and increasing confusion, found to have ELISABETH with creatinine initially 1.3 in the setting of stage III CKD He was hydrated with IV fluids but then was thought to have developed acute on chronic HFpEF-he was given Lasix 60 Mg IV twice daily for 2 days and creatinine increased further to 2.0. Now renal function much improved after receiving IVFs with retention specialist down to 1.2, continues to be making urine Bladder scan normal/acceptable amount-not obstructed CT A/P w/ stable bilateral parapelvic, periureteral, and perinephric edema, no stones or hydronephrosis. UA with trace protein, positive nitrate, 1+ bilirubin, trace LE, 0 WBC, 3-5 RBC, 11-20 hyaline cast, 3-5 epithelial cells, and uric acid crystals Urine culture mixed organisms Repeat urinalysis negative for infection or casts With IV contrast given on admission with CT scan Appreciate nephrology consultation-could be contrast-induced nephropathy versus hypercalcemia induced ELISABETH Nonoliguric, continues to improve, hypercalcemia now resolved Creatinine 1.4 on the day of discharge after receiving 1 dose of p.o. Lasix the day prior to discharge Renally dose medications Held home furosemide, magnesium oxide, and potassium while here but can now resume as needed furosemide at discharge. Can resume potassium citrate as it is for kidney stone prevention. Check CMP in 2 days with visiting nurse with results to go to PCP (2) Encephalopathy: Patient had significant confusion, lethargy for several days after admission. reports that he has been like this off and on for the last month or so Multifactorial related to ELISABETH, Keytruda-induced encephalitis, hypercalcemia, and suspected Wernicke's encephalopathy It is unclear when exactly he stopped the steroids for his encephaliatis, but he has not been on them for at least a month as per . No evidence of infection anywhere-chest CT with irregular consolidation at the bases improved from previous and not likely pneumonia. Urinalysis negative for infection Discussed with oncology-resumed steroids with Solu-Medrol 1 mg/kg split twice daily on 04/22--> had daily improvements prior to thiamine administration Started empiric high dose IV thiamine 04/25 and on 04/26 is remarkably completely back to normal mentation Hypercalcemia also treated and now resolved Continue supportive care, promote good sleep/wake cycles Continue thiamine supplementation and f/u B1 level when available after disc harge Continue steroids but changed from IV to prednisone 50mg daily until seen by Oncology Add on Protonix for GI protection while on high-dose steroids (3) Hypercalcemia: Moderate in nature with corrected serum calcium 13 on admission and continued to be elevated despite IV fluids and loop diuretics He is not on any meds that would be causing this-he has not been on HCTZ for quite some time as per his Could be in the setting of ELISABETH versus being quite sedentary of the last 2 months Likely contributing to his encephalopathy and his acute kidney injury Checked PTH-appropriately low. Checked vitamin D level which is mildly low. Fairly recent free kappa lambda light chains was only mildly abnormal and not considered to be significant This is Non-parathyroid mediated Checked parathyroid related protein given history of melanoma-pending at the time of discharge-With h/o melanoma although no bony lesions seen on CT of the chest, abdomen, and pelvis Serum immunofixation with faint borderline bands. UPEP also with faint bands but cannot be ruled out-d/w Oncology who does not feel this is significant at this time but will monitor in future Appreciate nephrology consultation-gave normal saline and gave denosumab 60 Mg x 1 on 04/23 (avoiding bisphosphonates due to acute kidney injury) Calcium now normal Follow-up on parathyroid related protein-pending Follow BMP in 2 days as an outpatient Okay to use as needed Lasix p.o. at home to prevent volume overload and to help with hypercalcemia-he will take it for worsening leg swelling or weight gain (4) Vomiting: Chronic for 1-2 months, acutely worsened x 3 days prior to admission Not likely gastroparesis although he has been treated with Reglan in the past yet does not have a history of diabetes Consulted speech therapy in case this is a swallowing issue-no trouble swallowing Pt reports he was having severe nausea even with putting food to his lips Completely resolved with resolution of encephalopathy and hypercalcemia. Maybe also some component of adrenal insufficiency leading to vomiting- no N/V in many days -has been on minced and moist diet, treating hypercalcemia and encephalitis Okay to have regular diet and tolerating prior to discharge Discontinue home metoclopramide (5) Weakness: ongoing with recent hospitalizations and falls, related to relative adrenal insufficiency after being on steroids for encephalitis and could be related to hypercalcemia PT/OT initially recommending rehab but after receiving high-dose steroids and treating hypercalcemia, he is now much improved and no longer needs rehab (6) Melanoma: Stage III, S/p surgical excision and Keytruda adjuvant therapy- 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 He was then placed back on Coumadin but this was discontinued during her recent hospitalization for unclear reasons He is high risk for VTE-started heparin SQ here until acute kidney injury resolved He does also have a remote history of paroxysmal atrial fibrillation but he has been in sinus rhythm for a couple of months that he was in the hospital Okay to resume Lovenox 40 mg SQ once daily on discharge for DVT prevention Plan Chronic stable diagnoses: Gout - Continue allopurinol Iron deficiency anemia hemoglobin has been stable-discontinue ferrous sulfate in case it was contributing to nausea/vomiting HTN -BP is controlled, continue metoprolol VTE ppx: SCDs, heparin SQ Code status: DNR/DNI Dispo: Is now much improved and is medically stable for discharge to home with home health Discussed care with his at the bedside on the day of discharge Notes For Next Care Provider Needs close follow-up with oncology within 2 weeks after discharge Check CMP on 04/29 Medication Changes From Visit See list Admission HPI Per Admitting Provider Patient is a 78-year-old male with a past medical history of CKD stage III, PE in 2021, stage III melanoma started on pembrolizumab 01/12/2023, atrial fibrillation. He has had numerous hospitalizations recently. He presents today due to dehydration from recent nausea and vomiting. as per the patient's family he has chronic vomiting and weakness. Both have progressively gotten worse over the past 3 days. He has vomited 2-3 times per day, no vomiting today. His weakness has gotten worse since he was recently discharged 04/09. He was seen by palliative care during previous admission, plan was to discharge to SNF with goal of long-term SNF placement. Patient was then unable to qualify for SNF and was sent home with home health. Patient denies current nausea. Unable to perform ROS given patient's lethargy. Patient's family stated that he was sent home with a oxygen set up 2 admissions ago, he does not use his oxygen at home unless he needs it on exertion. He was on 2 L via nasal cannula on admission. Patient's and son updated at bedside. Discharge Exam Constitutional well developed and + obese Eyes no nystagmus (Resolved) Respiratory normal respiratory effort, lungs clear to auscultation Cardiovascular Rate/Rhythm: regular rate and regular rhythm Heart Sounds: no murmur Extremities: + edema (Trace edema legs bilaterally) Neurologic moves all extremities and awake; no focal motor deficits and not confused Psychiatric Orientation: alert and oriented x 3 Discharge Plan Discharge Items Patient Disposition: Home - Home Health Services Reason For Visit: VOMITING, ELISABETH, WEAKNESS Discharge Diagnosis: Nausea/vomiting Acute kidney injury Hypercalcemia Encephalopathy Acute on chronic heart failure with preserved ejection fraction Condition on Discharge: Fair Activity: As commented below Lifting: Gradually increase as tolerated Bathing: No limitations Exercise/Sports: Gradually increase as tolerated Non-emergency contact: Primary Care Provider and Oncologist Call non-emergency contact if: you have any medication questions and your symptoms worsen Follow-up/Referrals: Stef Encarnacion MD [Primary Care Provider] - (Please follow-up within 1 to 2 weeks) Eden Johnson MD [Physician] - (Please call to schedule an appointment with your oncologist within 2 weeks.) Diet: Low Sodium (2gm) Diet Texture: Easy to Chew Ambulatory Orders: Comprehensive Metabolic Panel (Routine) Timeframe: 2 Days Location: Determined by Patient Ordered By: Marizol Redding Attending Provider Instructions: You were admitted with nausea and vomiting that may have been related to recurrence of your encephalitis from Keytruda as well as from high calcium levels. You were treated with steroids for the encephalitis and should remain on prednisone 50 mg a day and follow-up with Dr. Johnson of oncology within 1 to 2 weeks. Your high calcium levels were treated with a medication called Prolia as well as some IV fluids and this also improved. You need to have blood work checked on Monday with your visiting nurse to follow-up on your kidney function, your liver tests, and your calcium levels to make sure that they are remaining in normal limits. You should only take the Lasix water pill as needed for leg swelling or weight gain. Your Lyrica was discontinued as you no longer need it. There have been other medication changes. Please follow the medication list that you receive here exactly when you get home as we discussed and set aside any other medications that are not on the list so there is no confusion. You will also be started back on the Lovenox injections low-dose, once daily to prevent blood clots. Pending Studies at Discharge: Yes (Vitamin B1 level, parathyroid hormone related protein) Stand-Alone Forms: My [facility], Smoking Cessation Medications and DC Order Prescriptions: New prednisone 50 mg Tablet 50 mg PO QAM Qty: 30 0RF thiamine HCl (vitamin B1) 100 mg Tablet 100 mg PO QAM Qty: 30 0RF Rx Instructions: [id number] enoxaparin [Lovenox] 40 mg/0.4 mL syringe 40 mg subcut DAILY 30 Days Qty: 12 0RF pantoprazole [Protonix] 40 mg tablet,delayed release (DR/EC) 40 mg PO DAILY Qty: 30 0RF Continued allopurinol 100 mg tablet 0 mg PO QAM Rx Instructions: Per pharmacy, last filled 01/2024 x30 day supply. Original Directions: 200mg by mouth daily acetaminophen 650 mg Tablet Extended Release 650 mg PO Q4H PRN (Reason: Pain) furosemide 40 mg tablet 40 mg PO DAILY PRN (Reason: weight gain/swelling) potassium citrate 10 mEq (1,080 mg) tablet extended release 0 meq PO BID Rx Instructions: Per pharmacy, pt hasn't picked this up. Unable to verify if pt got elsewhere. Original Directions: 10meq by mouth twice daily metoprolol succinate 50 mg tablet extended release 24 hr 0 mg PO QAM Rx Instructions: Per pharmacy, pt hasn't picked this up. Unable to verify if pt got elsewhere. Original Directions: 50mg by mouth every morning Discontinued pregabalin 50 mg capsule 50 mg PO DAILY sennosides-docusate sodium [Senokot-S] 8.6-50 mg Tablet 1 tab PO BID Qty: 60 0RF Rx Instructions: Unable to verify OTC meds at this date/time. polyethylene glycol 3350 [Miralax] 17 gram powder in packet 17 g PO QAM Rx Instructions: Unable to verify OTC meds at this date/time. metoclopramide HCl [Reglan] 5 mg tablet 5 mg PO BID PRN (Reason: nausea and vomiting) Qty: 6 0RF ferrous sulfate 325 mg (65 mg iron) tablet,delayed release (DR/EC) 0 mg PO BIDM Rx Instructions: Per pharmacy, pt hasn't picked this up. Unable to verify if pt got elsewhere. Original Directions: 325mg by mouth twice daily Discharge Orders: Discharge Order (Routine); Ordered 04/27/24 Ordered By: Marizol Ramirez Admission Data Admit Date/Time: 04/17/24 18:45 Attending Provider: Marizol Ramirez Admit Provider: Danny Farah Primary Care Provider: Stef Encarnacion Other Providers: Danny Farah; [place],[facility], [place]; [facility],; [place],[facility]; [facility]; [facility] Stay Data Consultations 04/17/24 18:01 ED Decision to Admit Stat 04/22/24 12:26 Consult Nephrology Routine Diagnostic Imagining Performed 04/17/24 16:12 CT abd pelvis IV con only Stat 04/17/24 16:24 CT head/brain wo con Stat Pending Results Patient Have Any Pending Studies at Discharge: Yes (Vitamin B1 level, parathyroid hormone related protein) Discharge Instructions Given to Patient (Per Discharging Provider) You were admitted with nausea and vomiting that may have been related to recurrence of your encephalitis from Keytruda as well as from high calcium levels. You were treated with steroids for the encephalitis and should remain on prednisone 50 mg a day and follow-up with Dr. Johnson of oncology within 1 to 2 weeks. Your high calcium levels were treated with a medication called Prolia as well as some IV fluids and this also improved. You need to have blood work checked on Monday with your visiting nurse to follow-up on your kidney function, your liver tests, and your calcium levels to make sure that they are remaining in normal limits. You should only take the Lasix water pill as needed for leg swelling or weight gain. Your Lyrica was discontinued as you no longer need it. There have been other medication changes. Please follow the medication list that you receive here exactly when you get home as we discussed and set aside any other medications that are not on the list so there is no confusion. You will also be started back on the Lovenox injections low-dose, once daily to prevent blood clots. Total Time Total Time Spent Total Time Spent (In Minutes): 40 minutes Total Time Includes: Examination of the Patient, Discharge Planning and Medication Reconciliation Coding Level of Care Code 40456 INP/OBS DISCH >30 MIN Diagnoses ELISABETH (acute kidney injury) N17.9 Encephalopathy G93.40 Hypercalcemia E83.52 Vomiting R11.10 Weakness R53.1 Melanoma C43.9 Trigeminal neuralgia G50.0 FDC (current) use of anticoagulants Z79.01
[2024-04-27 13:33] VITALS: BP 151/84
[2024-04-28] MEDS ORDERED: THIAMINE HCL 200 MG in SODIUM CHLORIDE 0.9% 50 ML IV SCH (09:00)
[2024-05-03] MEDS ORDERED: THIAMINE HCL 100 MG TAB PO SCH (09:00)
== END 2024-04-27 14:10 | disposition home health service (06) | DRG 682 ==
LOC: ED 14:34 → 2N 18:45 → SUATTDRO 18:45 → 2N 21:19 → 3E 04-23 18:34

== ENCOUNTER 2024-09-16 17:36 | Inpatient (IN) ==
[2024-09-16 18:47] LABS: Basophils # (auto) 0.08 K/uL (0.00-0.20); Basophils % (auto) 0.5 %; Eosinophils # (auto) 0.19 K/uL (0.00-0.50); Eosinophils % (auto) 1.1 %; Hematocrit (blood only) 46.3 % (42.0-52.0); Hemoglobin 15.6 g/dl (14.0-18.0); Immature Granulocytes # (auto) 0.07 K/uL (0.01-0.20); Immature Granulocytes % (auto) 0.4 %; Lymphocytes # (auto) 2.45 K/uL (1.20-3.40); Lymphocytes % (auto) 14.8 %; Mean Corpuscular Hemoglobin 32.1 pg (25.0-34.0); Mean Corpuscular Hgb Conc 33.7 g/dL (32.0-36.0); Mean Corpuscular Volume 95.3 fL (80.0-100.0); Mean Platelet Volume 9.1 fL (9.4-12.4); Monocytes # (auto) 1.83 K/uL (0.11-0.59); Neutrophils # (auto) 11.97 K/uL (1.40-6.50); Neutrophils % (auto) 72.2 %; Platelet Count 189 K/uL (130-400); RDW Standard Deviation 49.2 fL (36.4-46.3); Red Blood Count 4.86 M/uL (4.70-6.10); White Blood Count 16.59 K/ul (4.8-10.8)
--- NOTE | 2024-09-16 18:57 | XRay Report ---
Chest radiograph, one view History: Dyspnea Comparison: 09/04/2024 Findings: Single AP view of the chest performed. Right chest wall port with catheter tip at the upper SVC. No focal consolidation or pleural effusion. No pneumothorax. The cardiomediastinal silhouette is within normal limits. Normal pulmonary vascularity. No evidence for lymphadenopathy. No visualized bony or soft tissue abnormality. Bilateral shoulder arthroplasty. Impression: Normal chest radiograph Electronically signed by Prosper Sapp 09-16-2024 6:56 PM
[2024-09-16 19:03] LABS: Albumin Globulin Ratio 1.2 (0.9-2); Albumin Level 3.8 gm/dl (3.4-5.0); BUN Creatinine Ratio 16.6 (10-20); Bilirubin,Total 1.7 mg/dl (0.2-1.0); Calcium 8.6 mg/dl (8.6-10.3); Creatinine Clr Calc Pharmacy 46.8 ml/min; Globulin 3.2 gm/dl (2.5-4.0); Magnesium 1.7 mg/dl (1.7-2.4); Potassium 3.7 mmol/L (3.5-5.1)
[2024-09-16 19:08] LABS: Influenza A virus by PCR Negative (Neg); Influenza B virus by PCR Negative (Neg); RSV by PCR Negative (Neg); SARS CoV2 RNA(COVID-19) Ceph NEGATIVE (Negative)
[2024-09-16 19:10] LABS: Troponin I High Sensitivity 16.1 pg/ml (0-20)
[2024-09-16 19:16] LABS: Base Excess VBG -2.3 mEq/L; HCO3 VBG 23 mmol/L; PCO2 VBG 38 mmHg (38-50); PO2 VBG 42 mmHg; pH VBG 7.38 (7.36-7.41)
[2024-09-16 19:19] LABS: Thyroid Stimulating Hormone 2.818 uIu/ml (0.300-4.500)
[2024-09-16 19:24] LABS: iSTAT Creatinine 1.7 mg/dl (0.6-1.3); iSTAT Hemoglobin 15.6 g/dl (14.0-18.0); iSTAT Ionized Calcium 1.04 mmol/l (1.12-1.32); iSTAT Potassium 3.6 mmol/L (3.3-5.0)
--- NOTE | 2024-09-16 19:37 | Emergency Department Note ---
History of Present Illness General Chief complaint: Cough Stated complaint: COUGH, WEAKNESS Time Seen by Provider: 09/16/24 18:46 History of Present Illness Provider complaint: Illness Maximum Pain Intensity: 6 78-year-old male presents emergency department for illness. He is here with his family. Patient reports that he has been very weak. He reports nausea abdominal pain shortness of breath. He reports cough. No headache. No chest pain. Home Medications Medication Instructions Recorded Confirmed Type acetaminophen 650 mg 650 mg PO Q4H PRN Pain 01/27/24 09/03/24 History tablet,extended release furosemide 40 mg tablet 40 mg PO DAILY PRN weight 02/24/24 09/03/24 History gain/swelling pantoprazole 40 mg tablet,delayed 40 mg PO DAILY #30 tabs 04/27/24 09/03/24 Rx release (Protonix) thiamine HCl (vitamin B1) 100 mg 100 mg PO QAM #30 tabs 04/27/24 09/03/24 Rx tablet pregabalin 50 mg capsule (Lyrica) 50 mg PO DAILY 06/06/24 09/03/24 History allopurinol 100 mg tablet 100 mg PO BID 06/07/24 09/03/24 History metoprolol succinate 50 mg 50 mg PO QAM 06/07/24 09/03/24 History tablet,extended release 24 hr potassium citrate 10 mEq (1,080 10 meq PO DAILY 06/07/24 09/03/24 History mg) tablet,extended release prednisone 20 mg tablet 10 mg PO DAILY 08/06/24 09/03/24 History warfarin 5 mg tablet See Rx Instructions PO UD 08/06/24 09/03/24 History Allergies Allergy/AdvReac Type Severity Reaction Status Date / Time gabapentin Allergy Intermediate Rash Verified 02/24/24 09:51 tramadol Allergy Intermediate Rash and Verified 02/24/24 09:51 itchiness hydrocodone Allergy Mild itchy Verified 02/24/24 09:51 oxycodone Allergy Mild itchy Verified 02/24/24 09:51 carbamazepine Allergy Unknown Unknown Verified 02/24/24 09:51 ciprofloxacin Allergy Unknown Unknown Verified 02/24/24 09:51 Past Med/Surg History Problem List (Updated 09/16/24 @ 21:39 by Jag Lira MD) Acute UTI (Acute) Hypoxia (Acute) Hypercalcemia Encephalopathy Encephalopathy Metastatic melanoma Palliative care by specialist Advanced care planning/counseling discussion Cellulitis of left lower leg Renal failure (ARF), acute on chronic Severe sepsis with septic shock Unwitnessed fall Sepsis Goals of care, counseling/discussion Fluid overload Physical deconditioning Fever Abdominal pain (Acute) Hypoxia (Acute) Melanoma Subtherapeutic international normalized ratio (INR) (Acute) Abdominal pain Hypoxia Elevated LFTs Acute blood loss anemia Dysuria Hematoma of chest wall (Acute) Chest pain (Acute) Metabolic encephalopathy Demand ischemia Altered mental status Acute kidney injury superimposed on CKD Complicated UTI (urinary tract infection) Severe sepsis Hypovolemic shock Vomiting (Acute) Bilateral cellulitis of lower leg (Acute) Bilateral leg edema (Acute) Prostate nodule ELISABETH (acute kidney injury) Hypomagnesemia Bilateral cellulitis of lower leg (Acute) Leg swelling (Acute) ALVAREZ (dyspnea on exertion) (Acute) Cellulitis Incontinence Port-A-Cath in place (01/24/23) Infusaport Insertion to right internal jugular with Fluoroscopy(Right) - Vamsi Tolbert DO Allergic reaction (Acute) Pulmonary embolism Trigeminal neuralgia (Acute) Trigeminal neuralgia (Acute) Vitamin D deficiency (Acute) Hypertension (Acute) Chronic kidney disease, stage 3 (Acute) Vitamin D deficiency (Chronic) Prostate cancer screening Thoracic ascending aortic aneurysm Gastritis Insomnia Encounter for pre-operative examination Primary osteoarthritis, left shoulder Low back pain with sciatica (Acute) 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 This is similar to the prior studies." Follows with Dr. Marshall Hypercholesterolemia (Acute) Stone in kidney Hx Hypertension (Chronic) Chronic kidney disease, stage III (moderate) (Chronic) Trigeminal neuralgia (Acute) s/p radiated nerve, No issues x several years Medical History Pleural effusion Obesity Encephalitis Pulmonary embolism on long-term anticoagulation therapy Atrial fibrillation and flutter Pulmonary embolism Constipated COVID-19 Osteoarthritis Surgical History History of left shoulder replacement History of right shoulder replacement History of total left knee replacement (TKR) History of total right knee replacement (TKR) with revision History of colonoscopy History of inguinal hernia repair History of cancer surgery Left side of neck resection + lymph node removal History of tooth extraction History of tonsillectomy and adenoidectomy History of sinus surgery History of cystoscopy History of cataract surgery bilateral History of back surgery L4-L5 with screws Family History Family/Other Diabetes Heart disease Nephrolithiasis Other No family history of adverse response to anesthesia Social History Smoking Status: Never smoker Second Hand Exposure: No; Do You Dip or Chew Tobacco: No; Hx Alcohol Use: No Hx Substance Use: No Preferred Language: Israeli Communication Ability: Effective 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 Beliefs That Will Affect Care: None Current Living Situation: Spouse current occupational status: retired Feels Safe at Home: Yes Seatbelt Use: always Assistive Devices: Cane, Walker and Wheelchair Physical Exam Vital Signs Vital Signs - 24 hr 09/16/24 17:50 09/16/24 17:58 09/16/24 18:47 Temperature 36.6 C Temperature Source Temporal Artery Scan Pulse Rate 110 H 111 H Pulse Rate [Left Apical] Respiratory Rate 22 Respiratory Effort / Characteristics Non-Labored Spontaneous Respiratory Depth Normal Respiratory Pattern Regular Blood Pressure 126/69 Blood Pressure [Right Arm] Blood Pressure Mean 88 Blood Pressure Mean [Right Arm] Blood Pressure Position Sitting Pulse Oximetry 89 L 93 Oxygen Delivery Method Room Air Nasal Cannula Oxygen Flow Rate 2 Sepsis Recent Fever Within 48 Hours No Sepsis New/Unexplained Change in Mental Status N/A Sepsis Action Taken by Nursing No Action Required 09/16/24 18:50 09/16/24 18:57 09/16/24 19:00 Temperature Temperature Source Pulse Rate 104 H 107 H Pulse Rate [Left Apical] 108 H Respiratory Rate 18 20 23 Respiratory Effort / Characteristics Non-Labored Spontaneous Respiratory Depth Normal Respiratory Pattern Regular Blood Pressure 120/65 Blood Pressure [Right Arm] 120/65 Blood Pressure Mean 83 Blood Pressure Mean [Right Arm] 83 Blood Pressure Position Pulse Oximetry 90 94 93 Oxygen Delivery Method Nasal Cannula Oxymask Oxymask Oxygen Flow Rate 2 4 4 Sepsis Recent Fever Within 48 Hours Sepsis New/Unexplained Change in Mental Status Sepsis Action Taken by Nursing 09/16/24 19:35 09/16/24 20:00 09/16/24 20:12 Temperature Temperature Source Pulse Rate 106 H Pulse Rate [Left Apical] Respiratory Rate 20 Respiratory Effort / Characteristics Respiratory Depth Respiratory Pattern Blood Pressure 108/64 104/64 Blood Pressure [Right Arm] Blood Pressure Mean 83 93 Blood Pressure Mean [Right Arm] Blood Pressure Position Pulse Oximetry 93 Oxygen Delivery Method Oxymask Oxygen Flow Rate 4 Sepsis Recent Fever Within 48 Hours Sepsis New/Unexplained Change in Mental Status Sepsis Action Taken by Nursing 09/16/24 20:30 09/16/24 20:31 09/16/24 20:42 Temperature Temperature Source Pulse Rate 113 H 105 H Pulse Rate [Left Apical] Respiratory Rate 24 21 Respiratory Effort / Characteristics Respiratory Depth Respiratory Pattern Blood Pressure 115/78 Blood Pressure [Right Arm] Blood Pressure Mean 95 Blood Pressure Mean [Right Arm] Blood Pressure Position Pulse Oximetry 96 94 Oxygen Delivery Method Oxymask Oxymask Oxygen Flow Rate 4 4 Sepsis Recent Fever Within 48 Hours Sepsis New/Unexplained Change in Mental Status Sepsis Action Taken by Nursing 09/16/24 20:48 09/16/24 21:00 09/16/24 21:03 Temperature Temperature Source Pulse Rate 106 H 106 H Pulse Rate [Left Apical] Respiratory Rate 22 21 Respiratory Effort / Characteristics Respiratory Depth Respiratory Pattern Blood Pressure 122/61 Blood Pressure [Right Arm] Blood Pressure Mean 66 Blood Pressure Mean [Right Arm] Blood Pressure Position Pulse Oximetry 94 94 Oxygen Delivery Method Oxymask Oxymask Oxygen Flow Rate 4 4 Sepsis Recent Fever Within 48 Hours Sepsis New/Unexplained Change in Mental Status Sepsis Action Taken by Nursing 09/16/24 21:15 Temperature Temperature Source Pulse Rate 105 H Pulse Rate [Left Apical] Respiratory Rate 21 Respiratory Effort / Characteristics Respiratory Depth Respiratory Pattern Blood Pressure Blood Pressure [Right Arm] Blood Pressure Mean Blood Pressure Mean [Right Arm] Blood Pressure Position Pulse Oximetry 90 Oxygen Delivery Method Oxymask Oxygen Flow Rate 4 Sepsis Recent Fever Within 48 Hours Sepsis New/Unexplained Change in Mental Status Sepsis Action Taken by Nursing Physical Exam HENT: Exam performed. - Head: Normocephalic and atraumatic. - Mouth/Throat: The oropharynx is clear and moist. No trismus in the jaw. No dental abscesses or uvula swelling. No oropharyngeal exudate or tonsillar abscesses. EYES: Conjunctivae and EOM are normal. Pupils are equal, round, and reactive to light. Right eye exhibits no discharge. Left eye exhibits no discharge. No scleral icterus. NECK: Normal range of motion. Neck supple. No rigidity. No tracheal deviation and normal range of motion present. CV: Normal rate, regular rhythm, normal heart sounds and intact distal pulses. There is no peripheral edema. Palpable radial pulses bue. PULM/CHEST: Effort normal and breath sounds normal. No respiratory distress. No stridor. He has no wheezes. He has no rales. ABD: The abdomen is soft. No fluid wave. He has no distension. No mass is present. There is no tenderness. There is no rebound, no guarding NEURO: Motor and sensation grossly intact. Course Course 1845: The patient was evaluated in room C9. A complete history and physical exam was performed Cardiac monitoring: An order was placed for continuous cardiac monitoring. The monitor shows a rate of 100 with sinus rhythm interpreted by me Patient was found to be hypoxic on room air. Family reports that the patient usually does not wear oxygen. Supplemental oxygen was applied via nasal cannula. 1912: I-STAT shows a creatinine of 1.7. Will do CT of the abdomen pelvis without contrast. Bedside ultrasound showed no ascites. 2136: Vital signs stable on supplemental oxygen. Labs are significant for leukocytosis of 16.59. VBG shows venous pH of 7.38 venous pCO2 of 38 lactic acid within normal limits. Creatinine 1.51. Total bilirubin 1.7. Procalcitonin elevated 2.68. Urinalysis does show 1+ bacteria. Imaging is unremarkable. Patient will be admitted to the [facility] team. Rocephin ordered for the patient. Critical Care Time Critical Care Time: Yes Total Critical Care Time: 39 I have personally spent greater than 39 minutes of critical care time in the direct management of this patient. This includes bedside care, interpretation of diagnostic studies, and testing, discussion with consultants, patient, and family members, and other required patient management activities. This 39 minutes is in excess of all separately billable procedures. Medical Decision Making Laboratory Data Attestation: I reviewed the patient's lab results. 09/16/24 18:32 09/16/24 18:32 Lab Results 09/16/24 09/16/24 09/16/24 Range/Units 18:06 18:32 19:04 WBC 16.59 H (4.8-10.8) K/ul RBC 4.86 (4.70-6.10) M/uL Hgb 15.6 (14.0-18.0) g/dl POC Hgb (14.0-18.0) g/dl Hct 46.3 (42.0-52.0) % POC Hct (42-52) % MCV 95.3 (80.0-100.0) fL MCH 32.1 (25.0-34.0) pg MCHC 33.7 (32.0-36.0) g/dL RDW Std Deviation 49.2 H (36.4-46.3) fL RDW Coeff of Lisbeth 14.0 (11.5-14.5) % Plt Count 189 (130-400) K/uL MPV 9.1 L (9.4-12.4) fL Immature Gran % (Auto) 0.4 % Neut % (Auto) 72.2 % Lymph % (Auto) 14.8 % Banner % (Auto) 11.0 % Eos % (Auto) 1.1 % Baso % (Auto) 0.5 % Neut # (Auto) 11.97 H (1.40-6.50) K/uL Lymph # (Auto) 2.45 (1.20-3.40) K/uL Banner # (Auto) 1.83 H (0.11-0.59) K/uL Eos # (Auto) 0.19 (0.00-0.50) K/uL Baso # (Auto) 0.08 (0.00-0.20) K/uL Immature Gran # (Auto) 0.07 (0.01-0.20) K/uL PT Cancelled INR Cancelled APTT Cancelled PTT Ratio Cancelled VBG pH 7.38 (7.36-7.41) VBG pCO2 38 (38-50) mmHg VBG pO2 42 mmHg VBG HCO3 23 mmol/L VBG O2 Saturation 80.0 % VBG Base Excess -2.3 mEq/L POC Sodium (135-144) mmol/L Sodium 135 L (136-145) mmol/L POC Potassium (3.3-5.0) mmol/L Potassium 3.7 (3.5-5.1) mmol/L POC Chloride (101-112) mmol/L Chloride 101 (98-107) mmol/L Carbon Dioxide 23 (21-32) mmol/L POC Total CO2 (24-31) mmol/L Anion Gap 11 (3-11) POC Anion Gap (16-25) mmol/L POC BUN (7-18) mg/dl BUN 25 H (6-23) mg/dl Creatinine 1.51 H (0.6-1.4) mg/dl POC Creatinine (0.6-1.3) mg/dl Est Cr Clr Drug Dosing 46.8 ml/min eGFR 46.69 BUN/Creatinine Ratio 16.6 (10-20) Glucose 102 H (70-99(Fasting)) mg/dl POC Glucose (other) (70-99) mg/dl Lactate 1.7 (0.4-2.0) mmol/L Calcium 8.6 (8.6-10.3) mg/dl POC Ioniz Calcium Laura (1.12-1.32) mmol/l Magnesium 1.7 (1.7-2.4) mg/dl Total Bilirubin 1.7 H (0.2-1.0) mg/dl AST 22 (13-39) U/L ALT 12 (7-52) U/L Alkaline Phosphatase 110 H (34-104) U/L Ammonia 27.0 (18-72) umol/L Troponin I High Sens 16.1 (0-20) pg/ml Total Protein 7.0 (6.0-8.3) gm/dl Albumin 3.8 (3.4-5.0) gm/dl Globulin 3.2 (2.5-4.0) gm/dl Albumin/Globulin Ratio 1.2 (0.9-2) Lipase 21 (11-82) U/L Procalcitonin 2.68 H (0-0.5) ng/ml TSH 2.818 (0.300-4.500) uIu/ml Urine Color Urine Appearance (Clear) Urine pH (4.5-7.5) Ur Specific [place] (1.000-1.030) Urine Protein (Negative) Urine Glucose (UA) (Negative) Urine Ketones (Negative) Urine Blood (Negative) Urine Nitrite (Negative) Urine Bilirubin (Negative) Urine Urobilinogen (Negative) Ur Leukocyte Esterase (Negative) Urine RBC (0-2) /hpf Urine WBC (0-5) /hpf Ur Epithelial Cells (0-2) /hpf Urine Bacteria (None Seen) Hyaline Casts (None Presnt) /lpf SARS-CoV-2 (PCR) NEGATIVE (Negative) Influenza Type A (PCR) Negative (Neg) Influenza Type B (PCR) Negative (Neg) RSV (RT-PCR) Negative (Neg) 09/16/24 09/16/24 09/16/24 Range/Units 19:11 20:26 20:30 WBC (4.8-10.8) K/ul RBC (4.70-6.10) M/uL Hgb (14.0-18.0) g/dl POC Hgb 15.6 (14.0-18.0) g/dl Hct (42.0-52.0) % POC Hct 46 (42-52) % MCV (80.0-100.0) fL MCH (25.0-34.0) pg MCHC (32.0-36.0) g/dL RDW Std Deviation (36.4-46.3) fL RDW Coeff of Lisbeth (11.5-14.5) % Plt Count (130-400) K/uL MPV (9.4-12.4) fL Immature Gran % (Auto) % Neut % (Auto) % Lymph % (Auto) % Banner % (Auto) % Eos % (Auto) % Baso % (Auto) % Neut # (Auto) (1.40-6.50) K/uL Lymph # (Auto) (1.20-3.40) K/uL Banner # (Auto) (0.11-0.59) K/uL Eos # (Auto) (0.00-0.50) K/uL Baso # (Auto) (0.00-0.20) K/uL Immature Gran # (Auto) (0.01-0.20) K/uL PT 14.2 H INR 1.3 H APTT 34 H PTT Ratio 1.3 VBG pH (7.36-7.41) VBG pCO2 (38-50) mmHg VBG pO2 mmHg VBG HCO3 mmol/L VBG O2 Saturation % VBG Base Excess mEq/L POC Sodium 136 (135-144) mmol/L Sodium (136-145) mmol/L POC Potassium 3.6 (3.3-5.0) mmol/L Potassium (3.5-5.1) mmol/L POC Chloride 102 (101-112) mmol/L Chloride (98-107) mmol/L Carbon Dioxide (21-32) mmol/L POC Total CO2 20 L (24-31) mmol/L Anion Gap (3-11) POC Anion Gap 19.0 (16-25) mmol/L POC BUN 26 H (7-18) mg/dl BUN (6-23) mg/dl Creatinine (0.6-1.4) mg/dl POC Creatinine 1.7 H (0.6-1.3) mg/dl Est Cr Clr Drug Dosing ml/min eGFR BUN/Creatinine Ratio (10-20) Glucose (70-99(Fasting)) mg/dl POC Glucose (other) 102 H (70-99) mg/dl Lactate (0.4-2.0) mmol/L Calcium (8.6-10.3) mg/dl POC Ioniz Calcium Laura 1.04 L (1.12-1.32) mmol/l Magnesium (1.7-2.4) mg/dl Total Bilirubin (0.2-1.0) mg/dl AST (13-39) U/L ALT (7-52) U/L Alkaline Phosphatase (34-104) U/L Ammonia (18-72) umol/L Troponin I High Sens (0-20) pg/ml Total Protein (6.0-8.3) gm/dl Albumin (3.4-5.0) gm/dl Globulin (2.5-4.0) gm/dl Albumin/Globulin Ratio (0.9-2) Lipase (11-82) U/L Procalcitonin (0-0.5) ng/ml TSH (0.300-4.500) uIu/ml Urine Color Yellow Urine Appearance Clear (Clear) Urine pH 5.5 (4.5-7.5) Ur Specific [place] 1.025 (1.000-1.030) Urine Protein 2+ H (Negative) Urine Glucose (UA) Negative (Negative) Urine Ketones 2+ H (Negative) Urine Blood Negative (Negative) Urine Nitrite Negative (Negative) Urine Bilirubin 2+ H (Negative) Urine Urobilinogen Negative (Negative) Ur Leukocyte Esterase Negative (Negative) Urine RBC 0-2 (0-2) /hpf Urine WBC 0-5 (0-5) /hpf Ur Epithelial Cells 6-10 H (0-2) /hpf Urine Bacteria 1+ H (None Seen) Hyaline Casts P (None Presnt) /lpf SARS-CoV-2 (PCR) (Negative) Influenza Type A (PCR) (Neg) Influenza Type B (PCR) (Neg) RSV (RT-PCR) (Neg) Imaging Data Attestation: I personally reviewed and interpreted this imaging study as follows: My Impression: Chest x-ray negative. Airway clear. No pneumothorax. No consolidation. No cardiomegaly or cephalization.. No free air under the diaphragm. No fractures of the skeletal structures. Radiologist's Impression: Chest X-Ray 09/16/24 17:58 Chest radiograph, one view History: Dyspnea Comparison: 09/04/2024 Findings: Single AP view of the chest performed. Right chest wall port with catheter tip at the upper SVC. No focal consolidation or pleural effusion. No pneumothorax. The cardiomediastinal silhouette is within normal limits. Normal pulmonary vascularity. No evidence for lymphadenopathy. No visualized bony or soft tissue abnormality. Bilateral shoulder arthroplasty. Impression: Normal chest radiograph Electronically signed by Prosper Sapp 09-16-2024 6:[address] 09/16/24 18:47 INDICATION: Weakness. COMPARISON: CT 04/17/2024. TECHNIQUE: Axial CT images of the head were obtained without IV contrast. Coronal and sagittal reformations were reviewed. FINDINGS: Rucker-white differentiation is relatively preserved. No mass, mass effect or midline shift. Chronic ischemic white matter changes. Basal ganglia calcifications. No evidence of acute large territorial infarction or acute intracranial hemorrhage. Ventricles appear normal in size. Basal cisterns are patent. No depressed calvarial fracture. Mucosal thickening of the sphenoid, ethmoid and right maxillary sinuses. IMPRESSION: No acute intracranial process. Sphenoid, right maxillary/ethmoid mucosal thickening. Electronically signed by Jake Calderon 09-16-2024 7:55 PM Abdomen/Pelvis CT 09/16/24 19:13 INDICATION: Abdominal pain. COMPARISON: CT from 08/20/2024 TECHNIQUE: Axial CT images of the abdomen and pelvis were obtained without IV contrast administration. Coronal and sagittal reformations were reviewed. FINDINGS: Visualized lung bases appear unremarkable. Heterogeneous appearance of the liver with nodular contour certainly related to cirrhosis. The gallbladder, spleen, pancreas and adrenal glands appear unremarkable. No renal calculus or hydronephrosis. Nonspecific bilateral perinephric fat stranding. No evidence of bowel obstruction/colitis/appendicitis. No free air. No drainable fluid collection. Negative for abdominal aortic aneurysm. The urinary bladder appears unremarkable. No acute osseous abnormality evident. IMPRESSION: 1. No acute process in the abdomen or pelvis. 2. Cirrhosis. Electronically signed by Jake Calderon 09-16-2024 7:55 PM ECG Data Attestation: I personally reviewed and interpreted this ECG as follows: Rate (beats per minute): 108 Rhythm: + normal sinus ECG Intervals/blocks: + Normal [place] and + Normal QT-c ECG ST segments: + Normal ST segments Additional Comments: QRS 78 MDM Narrative 184: The patient was evaluated in room C9. A complete history and physical exam was performed Cardiac monitoring: An order was placed for continuous cardiac monitoring. The monitor shows a rate of 100 with sinus rhythm interpreted by me Patient was found to be hypoxic on room air. Family reports that the patient usually does not wear oxygen. Supplemental oxygen was applied via nasal cannula. 1912: I-STAT shows a creatinine of 1.7. Will do CT of the abdomen pelvis without contrast. Bedside ultrasound showed no ascites. 2136: Vital signs stable on supplemental oxygen. Labs are significant for leukocytosis of 16.59. VBG shows venous pH of 7.38 venous pCO2 of 38 lactic acid within normal limits. Creatinine 1.51. Total bilirubin 1.7. Procalcitonin elevated 2.68. Urinalysis does show 1+ bacteria. Imaging is unremarkable. Patient will be admitted to the [facility] team. Rocephin ordered for the patient. Impression & Plan Hypoxia, Acute UTI Discharge Plan Visit Data Chief Complaint: Cough Stated Complaint: COUGH, WEAKNESS ED Provider: Jag Lira Discharge Problem: Hypoxia, Acute UTI Patient Disposition: Admitted As Inpatient Forms Stand Alone Forms: My [facility] Prescriptions Prescriptions: No Action pregabalin [Lyrica] 50 mg capsule 50 mg PO DAILY Rx Instructions: REPORTED MED prednisone 20 mg tablet 10 mg PO DAILY Rx Instructions: tapered to this dose starting 08/06/24 warfarin 5 mg tablet See Rx Instructions PO UD Rx Instructions: 7.5mg q Monday/, 5mg x [address] [facility] orally use as directed; potassium citrate 10 mEq (1,080 mg) tablet extended release 10 meq PO DAILY allopurinol 100 mg tablet 100 mg PO BID metoprolol succinate 50 mg tablet extended release 24 hr 50 mg PO QAM acetaminophen 650 mg Tablet Extended Release 650 mg PO Q4H PRN (Reason: Pain) furosemide 40 mg tablet 40 mg PO DAILY PRN (Reason: weight gain/swelling) thiamine HCl (vitamin B1) 100 mg Tablet 100 mg PO QAM Qty: 30 0RF Rx Instructions: [id number] pantoprazole [Protonix] 40 mg tablet,delayed release (DR/EC) 40 mg PO DAILY Qty: 30 0RF Referrals Referrals: Monique Buchanan [Primary Care Provider] -
--- NOTE | 2024-09-16 19:55 | CT Scan Report ---
INDICATION: Weakness. COMPARISON: CT 04/17/2024. TECHNIQUE: Axial CT images of the head were obtained without IV contrast. Coronal and sagittal reformations were reviewed. FINDINGS: Rucker-white differentiation is relatively preserved. No mass, mass effect or midline shift. Chronic ischemic white matter changes. Basal ganglia calcifications. No evidence of acute large territorial infarction or acute intracranial hemorrhage. Ventricles appear normal in size. Basal cisterns are patent. No depressed calvarial fracture. Mucosal thickening of the sphenoid, ethmoid and right maxillary sinuses. IMPRESSION: No acute intracranial process. Sphenoid, right maxillary/ethmoid mucosal thickening. Electronically signed by Jake Calderon 09-16-2024 7:55 PM
--- NOTE | 2024-09-16 19:55 | CT Scan Report ---
INDICATION: Abdominal pain. COMPARISON: CT from 08/20/2024 TECHNIQUE: Axial CT images of the abdomen and pelvis were obtained without IV contrast administration. Coronal and sagittal reformations were reviewed. FINDINGS: Visualized lung bases appear unremarkable. Heterogeneous appearance of the liver with nodular contour certainly related to cirrhosis. The gallbladder, spleen, pancreas and adrenal glands appear unremarkable. No renal calculus or hydronephrosis. Nonspecific bilateral perinephric fat stranding. No evidence of bowel obstruction/colitis/appendicitis. No free air. No drainable fluid collection. Negative for abdominal aortic aneurysm. The urinary bladder appears unremarkable. No acute osseous abnormality evident. IMPRESSION: 1. No acute process in the abdomen or pelvis. 2. Cirrhosis. Electronically signed by Jake Calderon 09-16-2024 7:55 PM
[2024-09-16 20:57] LABS: Appearance Urine Clear (Clear); Bilirubin Urine 2+ (Negative); Blood Urine Negative (Negative); Color Urine Yellow; Glucose Urine UA Negative (Negative); Ketones Urine 2+ (Negative); Leukocyte Esterase Urine Negative (Negative); Nitrite Urine Negative (Negative); Protein Urine 2+ (Negative); Specific Gravity Urine 1.025 (1.000-1.030); Urobilinogen Urine Negative (Negative); pH Urine 5.5 (4.5-7.5)
[2024-09-16 21:10] LABS: INR 1.3 (0.9-1.1); Partial Thromboplastin Ratio 1.3; Partial Thromboplastin Time 34 Seconds (21-31); Prothrombin Time 14.2 Seconds (9.0-12.0)
[2024-09-16 21:28] LABS: Hyaline Casts Urine P /lpf (None Presnt)
[2024-09-16 21:29] LABS: Bacteria Urine 1+ (None Seen); RBC Urine 0-2 /hpf (0-2); WBC Urine 0-5 /hpf (0-5)
--- NOTE | 2024-09-16 22:23 | History & Physical Report ---
Date of Service September 16, 2024 Assessment & Plan (1) Acute hypoxic respiratory failure: (2) Acute UTI: (3) Abdominal pain: (4) Subtherapeutic international normalized ratio (INR): (5) Chronic kidney disease, stage 3: (6) Hypertension: (7) History of pulmonary embolism: (8) MCFP (current) use of anticoagulants: (9) Aortic aneurysm: (10) Hypercholesterolemia: Plan Patient is a 78-year-old male with past medical history of CKD3 (baseline creatinine of 1.31.5), history of PE in 2021, melanoma, anticardiolipin syndrome, A-fib on chronic anticoagulation with warfarin (INR goal of 23), thoracic aortic aneurysm, GERD who was admitted due to acute hypoxic respiratory failure with new oxygen requirement. AHRF - Patient with increasing SOB and new oxygen need - CXR unremarkable and not suggestive of acute pna - MRSA nares ordered and pending - Will manage with abx as mentioned below and added duonebs prn - Incentive spirometry - Continue home prednisone 5 mg, but will hold off from IV steroids for now given GI sxs - Add Mucinex, Tessalon perles - Given subtherapeutic INR in the setting of known anti-cardiolipin syndrome plus new oxygen need and SOB, cannot fully rule out PE If note poor response to current interventions, can consider d-dimer versus chest CTA - Oxygen supplementation as needed; wean off as tolerated (+) SIRS - Leukocytosis and tachycardia w/ possible urinary versus GI source; procal of 2.68 suggestive of bacterial infection - U/A suggestive of infection and abdominal pain/distension w/ associated N/V/D - Stool studies ordered in ED but not yet collected - Will manage with Ceftriaxone, but may change if there is poor response or stool studies are positive A-fib Anti-cardiolipin syndrome - Rate controlled at the time of admission - Continue home metoprolol - Continue Warfarin (given additional 5 mg at time of admission due to subtherapeutic INR) - Monitor PT/INR in am labs CKD-3 - Baseline Cr of 1.3-1.5 - mIVF as mentioned - Monitor am labs Thoracic aortic aneurysm - Noted to be stable on previous imaging and measuring ~4.[address] from 08/20/24 - Would maintain BP control with goal < 130 systolic and < 90 diastolic - Would avoid quinolone antibiotics due to increased risk of rupture Dispo: Admit to Med/Tele IVF: LR @ 100 ml/hr VTE ppx: Warfarin (given additional 5 mg on admission due to subtherapeutic INR) Diet: Low sodium Code status: DNR/DNI History of Present Illness Chief Complaint: Cough Primary Care Provider: Monique Buchanan Patient is a 78-year-old male with past medical history of CKD3 (baseline cre atinine of 1.31.5), history of PE in 2021, melanoma, anticardiolipin syndrome, A-fib on chronic anticoagulation with warfarin (INR goal of 23), thoracic aortic aneurysm, GERD who came to the emergency department due to progressively worsening cough and shortness of breath. Patient's symptoms began on Monday (09/13/24) as decreased appetite with subsequent decreased p.o. intake and hydration, abdominal discomfort, cough, nausea without vomiting, headaches, weakness, shortness of breath, and today developed 2-3 episodes of watery stools (nonbloody). Does not believe that he had any fevers. Patient does not use oxygen at home, however, since today he was feeling especially short of breath he did use his 's oxygen and states that he did feel little bit better. Of note, patient has a history of melanoma which per [id number] who was at bedside was biopsied few weeks ago, as well as a recent procedure for biopsy of a 2.2 cm enlarging right pleural lesion on 09/04/2024. Patient has been on chronic warfarin due to A-fib in the setting of anticardiolipin syndrome for which she follows the anticoagulation clinic, however, since warfarin was held for the aforementioned procedure his INR has been subtherapeutic. Labs/Imaging: CBC with leukocytosis of 16.59 with neutrophilic predominance, hemoglobin of 15.6, platelets of 189. CMP with mild hyponatremia 135 and no other electrolyte abnormalities, creatinine 1.51 which is close to patient's baseline, blood sugar 102. INR 1.3. Lactate of 1.7. Pro-Damian of 2.68. TSH of 2.18. UA with +1 bacteria and suggestive of UTI. Chest x-ray unremarkable. Head CT with mucosal thickening in sinuses which could be suggestive of sinusitis. CTAP with cirrhosis but no other acute changes. Medical History: [Reviewed] Medications: [Reviewed] Surgical History: [Reviewed] Family history: [Reviewed] Allergies: [Reviewed] Social History: [Reviewed] Code Status: DNR/DNI Allergies Allergy/AdvReac Type Severity Reaction Status Date / Time gabapentin Allergy Intermediate Rash Verified 09/16/24 22:42 tramadol Allergy Intermediate Rash and Verified 09/16/24 22:42 itchiness hydrocodone Allergy Mild itchy Verified 09/16/24 22:42 oxycodone Allergy Mild itchy Verified 09/16/24 22:42 carbamazepine Allergy Unknown Unknown Verified 09/16/24 22:42 ciprofloxacin Allergy Unknown Unknown Verified 09/16/24 22:42 Home Medications Medication Instructions Recorded Confirmed Type acetaminophen 650 mg 650 mg PO Q4H PRN Pain 01/27/24 09/16/24 History tablet,extended release furosemide 40 mg tablet 40 mg PO DAILY PRN weight 02/24/24 09/16/24 History gain/swelling pantoprazole 40 mg tablet,delayed 40 mg PO DAILY #30 tabs 04/27/24 09/16/24 Rx release (Protonix) thiamine HCl (vitamin B1) 100 mg 100 mg PO QAM #30 tabs 04/27/24 09/16/24 Rx tablet allopurinol 100 mg tablet 100 mg PO BID 06/07/24 09/16/24 History metoprolol succinate 50 mg 50 mg PO QAM 06/07/24 09/16/24 History tablet,extended release 24 hr potassium citrate 10 mEq (1,080 10 meq PO DAILY 06/07/24 09/16/24 History mg) tablet,extended release warfarin 5 mg tablet See Rx Instructions PO UD 08/06/24 09/16/24 History prednisone 5 mg tablet 5 mg PO DAILY 09/16/24 09/16/24 History pregabalin 50 mg capsule 50 mg PO DAILY 09/16/24 09/16/24 History Past Med/Surg History Problem List (Updated 09/17/24 @ 00:26 by Background Doc) Acute hypoxic respiratory failure Acute UTI (Acute) Hypoxia (Acute) Hypercalcemia Encephalopathy Encephalopathy Metastatic melanoma Palliative care by specialist Advanced care planning/counseling discussion Cellulitis of left lower leg Renal failure (ARF), acute on chronic Severe sepsis with septic shock Unwitnessed fall Sepsis Goals of care, counseling/discussion Fluid overload Physical deconditioning Fever Abdominal pain (Acute) Hypoxia (Acute) Melanoma Subtherapeutic international normalized ratio (INR) (Acute) Abdominal pain Hypoxia Elevated LFTs Acute blood loss anemia Dysuria Hematoma of chest wall (Acute) Chest pain (Acute) Metabolic encephalopathy Demand ischemia Altered mental status Acute kidney injury superimposed on CKD Complicated UTI (urinary tract infection) Severe sepsis Hypovolemic shock Vomiting (Acute) Bilateral cellulitis of lower leg (Acute) Bilateral leg edema (Acute) Prostate nodule ELISABETH (acute kidney injury) Hypomagnesemia Bilateral cellulitis of lower leg (Acute) Leg swelling (Acute) ALVAREZ (dyspnea on exertion) (Acute) Cellulitis Incontinence Port-A-Cath in place (01/24/23) Infusaport Insertion to right internal jugular with Fluoroscopy(Right) - Vamsi Tolbert DO Allergic reaction (Acute) Pulmonary embolism Trigeminal neuralgia (Acute) Trigeminal neuralgia (Acute) Vitamin D deficiency (Acute) Hypertension (Acute) Chronic kidney disease, stage 3 (Acute) Vitamin D deficiency (Chronic) Prostate cancer screening Thoracic ascending aortic aneurysm Gastritis Insomnia Encounter for pre-operative examination Primary osteoarthritis, left shoulder Low back pain with sciatica (Acute) History of pulmonary embolism 2015, unknown etiology 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 This is similar to the prior studies." Follows with Dr. Marshall Hypercholesterolemia (Acute) Stone in kidney Hx Hypertension (Chronic) Chronic kidney disease, stage III (moderate) (Chronic) Trigeminal neuralgia (Acute) s/p radiated nerve, No issues x several years Medical History Pleural effusion Obesity Encephalitis Pulmonary embolism on long-term anticoagulation therapy Atrial fibrillation and flutter Pulmonary embolism Constipated COVID-19 Osteoarthritis Surgical History History of left shoulder replacement History of right shoulder replacement History of total left knee replacement (TKR) History of total right knee replacement (TKR) with revision History of colonoscopy History of inguinal hernia repair History of cancer surgery Left side of neck resection + lymph node removal History of tooth extraction History of tonsillectomy and adenoidectomy History of sinus surgery History of cystoscopy History of cataract surgery bilateral History of back surgery L4-L5 with screws Family History Family/Other Diabetes Heart disease Nephrolithiasis Other No family history of adverse response to anesthesia Social History Smoking Status: Never smoker Second Hand Exposure: No; Do You Dip or Chew Tobacco: No; Hx Alcohol Use: No Hx Substance Use: No Preferred Language: Yakut Communication Ability: Effective Wastewater Treatment Operator Required: No Beliefs That Will Affect Care: None Current Living Situation: Spouse current occupational status: retired Feels Safe at Home: Yes Seatbelt Use: always Assistive Devices: Cane, Walker and Wheelchair Review of Systems Review of Systems: As per HPI Physical Exam Physical Exam: GENERAL: AAOx3, afebrile, calm, NAD HEAD: AT, NC EYES: JAYE, EOM intact, slight mucous discharge in right eye w/o associated conjunctival injection CHEST: symmetric chest expansions w/ respirations CARDIO: irregular rate and rhythm, no r/m/g PULMONARY: rhonchi in upper kan, no wheezing, normal respiratory effort, no respiratory distress, oxymask at 4 lpm with O2 saturation of 94% (on oxymask since patient was breathing through his mouth) GI: mildly distended, tenderness to palpation in LUQ, suprapubic region, and b/l lower quadrants (more marked in LUQ), no CVA tenderness EXTREMITIES: no swelling or calf tenderness, erythema in b/l distal lower extremities w/o warmth or tenderness, patient had bandage over anterior aspect of right LE that was removed and no open wound was present Results & Data Results & Data Vital Signs (Past 12 Hours) Vital Signs Temp Pulse Pulse Resp BP BP Pulse Ox 09/16/24 22:12 105 H 25 H 94 09/16/24 22:00 99 H 20 113/66 93 09/16/24 21:51 99 H 20 93 09/16/24 21:48 103 H 18 94 09/16/24 21:30 102 H 20 114/63 93 09/16/24 21:15 105 H 21 90 09/16/24 21:03 106 H 21 94 09/16/24 21:00 122/61 09/16/24 20:48 106 H 22 94 09/16/24 20:42 105 H 21 94 09/16/24 20:31 115/78 09/16/24 20:30 113 H 24 96 09/16/24 20:12 106 H 20 93 09/16/24 20:00 104/64 09/16/24 19:35 108/64 09/16/24 19:00 107 H 23 120/65 93 09/16/24 18:57 104 H 20 94 09/16/24 18:50 108 H 18 120/65 90 09/16/24 18:47 111 H 09/16/24 17:58 93 09/16/24 17:50 36.6 C 110 H 22 126/69 89 L O2 Del Method O2 Flow Rate 09/16/24 22:12 Oxymask 4 09/16/24 22:00 Oxymask 4 09/16/24 21:51 Oxymask 4 09/16/24 21:48 Oxymask 4 09/16/24 21:30 Oxymask 4 09/16/24 21:15 Oxymask 4 09/16/24 21:03 Oxymask 4 09/16/24 21:00 09/16/24 20:48 Oxymask 4 09/16/24 20:42 Oxymask 4 09/16/24 20:31 09/16/24 20:30 Oxymask 4 09/16/24 20:12 Oxymask 4 09/16/24 20:00 09/16/24 19:35 09/16/24 19:00 Oxymask 4 09/16/24 18:57 Oxymask 4 09/16/24 18:50 Nasal Cannula 2 09/16/24 18:47 09/16/24 17:58 Nasal Cannula 2 09/16/24 17:50 Room Air Supervising Physician Co-Signing Physician Notes patient seen and examined, chart reviewed, case discussed with Dr. Jorge and I agree with the assessment plan as document above. Resident Activity Tracking Resident Involvement: Resident Care Provided Care Provided: Adult Hospital Medicine
[2024-09-16] MEDS: cefTRIAXone SODIUM 2,000 MG/50 ML BAG IV STA (22:44)
[2024-09-17] MEDS ORDERED: ACETAMINOPHEN 325 MG TAB PO PRN (00:27)
[2024-09-17] MEDS ORDERED: ALBUT/IPRATROP 3MG/0.5MG NEB 3 ML VIAL NEB PRN (00:27)
[2024-09-17] MEDS ORDERED: ONDANSETRON INJ 2 MG/ML 2 ML VIAL IV PRN (00:27)
[2024-09-17] MEDS: WARFARIN SOD 5 MG TAB PO ONE (01:46)
[2024-09-17] MEDS: LACTATED RINGER'S 1,000 ML IV SCH ×2 (01:48→23:37)
[2024-09-17] MEDS: WARFARIN SOD 5 MG TAB PO SCH (01:50)
[2024-09-17] MEDS ORDERED: BENZONATATE 100 MG CAPSULE PO PRN (01:57)
--- NOTE | 2024-09-17 03:32 | Billing Data ---
Date of Service September 16, 2024 Coding Level of Care Code 82991 INT INP/OBS CARE
[2024-09-17] MEDS ORDERED: HEPARIN 100 UNIT/ML 5ML FLUSH FLUSH PRN (03:37)
--- OUTSIDE RECORDS SUMMARY | 2024-09-17 04:52 | External Medical Summary ---
Author Name Unknown Address Unknown Organization [facility] [employer] Chemistry:[facility] [employer] Chemistry [address] [place] [address] [place] [address] Laboratory Report Ordering Provider Test Date Status Lali Chawla 09/11/2024 05:03:00 Final Observation Date Value Abnormality Reference (Units ) Status Glucose [Mass/volume] in Serum or Plasma 09/11/2024 10:56:09 93 74-109 (mg/dL) Final Urea nitrogen [Mass/volume] in Serum or Plasma 09/11/2024 10:56:09 23 6-23 (mg/dL) Final Creatinine [Mass/volume] in Serum or Plasma 09/11/2024 10:56:09 0.97 0.70-1.30 (mg/dL) Final Sodium [Moles/volume] in Serum or Plasma 09/11/2024 10:56:09 142 136-145 (mmol/L) Final Potassium [Moles/volume] in Serum or Plasma 09/11/2024 10:56:09 4.3 3.5-5.1 (mmol/L) Final Chloride [Moles/volume] in Serum or Plasma 09/11/2024 10:56:09 105 98-107 (mmol/L) Final Carbon dioxide, total [Moles/volume] in Serum or Plasma 09/11/2024 10:56:09 26 22-29 (mmol/L) Final Calcium [Mass/volume] in Serum or Plasma 09/11/2024 10:56:09 8.8 8.4-10.2 (mg/dL) Final Performing Location [facility] [employer] Marine Service Station Attendant ry [address] [place] [address] [place] [address]
--- OUTSIDE RECORDS SUMMARY | 2024-09-17 04:52 | External Medical Summary ---
Author Name Unknown Address Unknown Organization [facility] [employer] [facility] [address] [place] [address] [place] [address] Laboratory Report Ordering Provider Test Date Status Lali Chawla 09/11/2024 05:03:00 Final Observation Date Value Abnormality Reference (Units ) Status Leukocytes [#/volume] in Blood by Automated count 09/11/2024 10:38:01 7.47 4.00-10.40 (K/uL) Final Erythrocytes [#/volume] in Blood by Automated count 09/11/2024 10:38:01 4.15 Below low normal 4.40-5.60 (M/uL) Final Hemoglobin [Mass/volume] in Blood 09/11/2024 10:38:01 12.4 Below low normal 13.0-17.0 (g/dL) Final Hematocrit [Volume Fraction] of Blood by Automated count 09/11/2024 10:38:01 39.4 35.0-44.0 (%) Final MCV [Entitic volume] by Automated count 09/11/2024 10:38:01 94.9 81.0-96.0 (fL) Final MCH [Entitic mass] by Automated count 09/11/2024 10:38:01 29.9 28.0-33.0 (pg) Final MCHC [Mass/volume] by Automated count 09/11/2024 10:38:01 31.5 Below low normal 32.0-36.0 (g/dL) Final Erythrocyte distribution width [Ratio] by Automated count 09/11/2024 10:38:01 13.9 11.5-14.2 (%) Final Erythrocyte distribution width [Entitic volume] by Automated count 09/11/2024 10:38:01 49 Final Platelets [#/volume] in Blood by Automated count 09/11/2024 10:38:01 187 150-350 (K/uL) Final Platelet mean volume [Entitic volume] in Blood by Automated count 09/11/2024 10:38:01 11.1 9.0-12.2 (fL) Final Nucleated erythrocytes/100 cells in Bone marrow by Manual count 09/11/2024 10:38:01 0 (/100 WBCs) Final Nucleated erythrocytes [#/volume] in Blood by Manual count 09/11/2024 10:38:01 0.00 (K/uL) Final Performing Location [facility] [address] [address]
--- OUTSIDE RECORDS SUMMARY | 2024-09-17 04:52 | External Medical Summary ---
Author Name Unknown Address Unknown Organization [facility] [employer] Chemistry:[facility] Chemistry [address] [place] [address] [place] [address] Laboratory Report Ordering Provider Test Date Status Lali Chawla 09/11/2024 05:03:00 Final Observation Date Value Abnormality Reference (Units ) Status Cobalamin (Vitamin B12) [Mass/volume] in Serum or Plasma 09/11/2024 12:53:02 293 211-946 (pg/mL) Final Performing Location [facility] Senior Clinical Research Associate ry [address] [place] [address] [place] [address]
--- OUTSIDE RECORDS SUMMARY | 2024-09-17 04:52 | External Medical Summary ---
Author Name Unknown Address Unknown Organization [facility] [employer] Chemistry:[facility] [employer] Chemistry [address] [place] [address] [place] [address] Laboratory Report Ordering Provider Test Date Status Lali Chawla 09/11/2024 05:03:00 Final Observation Date Value Abnormality Reference (Units ) Status Glucose [Mass/volume] in Serum or Plasma 09/11/2024 10:56:09 93 74-109 (mg/dL) Final Urea nitrogen [Mass/volume] in Serum or Plasma 09/11/2024 10:56:09 23 6-23 (mg/dL) Final GLOMERULAR FILTRATION RATE/1.73 SQ M.PREDICTED:ARVRAT:PT:S ER/PLAS/BLD:QN:CREATINI NE AND CYSTATIN C-BASED FORMULA (CKD-EPI 2020) 09/11/2024 10:56:10 79 >=60 (mL/min/1.73 m2) Final Creatinine [Mass/volume] in Serum or Plasma 09/11/2024 10:56:09 0.97 0.70-1.30 (mg/dL) Final Sodium [Moles/volume] in Serum or Plasma 09/11/2024 10:56:09 142 136-145 (mmol/L) Final Potassium [Moles/volume] in Serum or Plasma 09/11/2024 10:56:09 4.3 3.5-5.1 (mmol/L) Final Chloride [Moles/volume] in Serum or Plasma 09/11/2024 10:56:09 105 98-107 (mmol/L) Final Carbon dioxide, total [Moles/volume] in Serum or Plasma 09/11/2024 10:56:09 26 22-29 (mmol/L) Final Anion gap 3 in Serum or Plasma 09/11/2024 10:56:10 11 5-14 (mmol/L) Final Calcium [Mass/volume] in Serum or Plasma 09/11/2024 10:56:09 8.8 8.4-10.2 (mg/dL) Final Performing Location [facility] Line Crew Supervisor ry [address] [place] [address]
--- OUTSIDE RECORDS SUMMARY | 2024-09-17 04:52 | External Medical Summary ---
Author Name Unknown Address Unknown Organization [facility] [employer] Chemistry:[facility] [employer] Chemistry [address] [place] [address] [place] [address] Laboratory Report Ordering Provider Test Date Status Lali Chawla 09/11/2024 05:03:00 Final Observation Date Value Abnormality Reference (Units ) Status Magnesium [Mass/volume] in Serum or Plasma 09/11/2024 10:56:09 2.1 1.6-2.6 (mg/dL) Final Performing Location [facility] [employer] Hooker Operator ry [address] [place] [address] [place] [address]
[2024-09-17] MEDS: diphenhydrAMINE HCl 12.5 MG/5 ML UDC PO ONE (05:36)
[2024-09-17 06:54] LABS: Basophils # (auto) 0.04 K/uL (0.00-0.20); Basophils % (auto) 0.3 %; Eosinophils # (auto) 0.39 K/uL (0.00-0.50); Eosinophils % (auto) 3.2 %; Hematocrit (blood only) 42.1 % (42.0-52.0); Hemoglobin 13.9 g/dl (14.0-18.0); Immature Granulocytes # (auto) 0.04 K/uL (0.01-0.20); Immature Granulocytes % (auto) 0.3 %; Lymphocytes # (auto) 1.86 K/uL (1.20-3.40); Lymphocytes % (auto) 15.2 %; Mean Corpuscular Hemoglobin 32.2 pg (25.0-34.0); Mean Corpuscular Volume 97.5 fL (80.0-100.0); Mean Platelet Volume 9.6 fL (9.4-12.4); Monocytes # (auto) 1.25 K/uL (0.11-0.59); Monocytes % (auto) 10.2 %; Neutrophils # (auto) 8.63 K/uL (1.40-6.50); Neutrophils % (auto) 70.8 %; Platelet Count 177 K/uL (130-400); RDW Coefficient of Variation 14.2 % (11.5-14.5); RDW Standard Deviation 51.6 fL (36.4-46.3); Red Blood Count 4.32 M/uL (4.70-6.10); White Blood Count 12.21 K/ul (4.8-10.8)
[2024-09-17 07:22] LABS: INR 1.3 (0.9-1.1); Prothrombin Time 13.9 Seconds (9.0-12.0)
--- NOTE | 2024-09-17 07:25 | Hospitalist Progress Note ---
Date of Service September 17, 2024 Assessment & Plan (1) Acute hypoxic respiratory failure: (2) Subtherapeutic international normalized ratio (INR): (3) Chronic kidney disease, stage 3: (4) Hypertension: (5) History of pulmonary embolism: (6) MCFP (current) use of anticoagulants: (7) Aortic aneurysm: (8) Hypercholesterolemia: (9) Pneumonia: Plan Patient is a 78-year-old male with past medical history of CKD3 (baseline creatinine of 1.31.5), history of PE in 2021, melanoma, anticardiolipin syndrome, A-fib on chronic anticoagulation with warfarin (INR goal of 23), thoracic aortic aneurysm, GERD who was admitted due to acute hypoxic respiratory failure with new oxygen requirement. #AHRF / +SIRS / Pneumonia: - Leukocytosis and tachycardia on admission, elevated procal - likely respiratory source - CXR largely unremarkable - CTA obtained due to new O2 requirement, tachycardia, and subtherapeutic INR - negative for PE but demonstrated RUL opacity consistent with pneumonia - Discontinue Aztreonam, start IV Unasyn - Blood cultures pending - Incentive spirometry - Continue PRN Duonebs, Mucinex, Tessalon perles - Weaned onto room air, provide supplemental O2 as needed to maintain SpO2>94% #A-fib #Anti-cardiolipin syndrome - Rate controlled - Continue home metoprolol - Continue Warfarin - Monitor PT/INR in am labs #CKD-3 - Baseline Cr of 1.3-1.5 - Continue mIVF, particularly due to contrast exposure for CTA - Monitor am labs Thoracic aortic aneurysm - Noted to be stable on previous imaging and measuring ~4.[address] from 08/20/24 - Maintain BP control with goal < 130 systolic and < 90 diastolic VTE ppx: Warfarin Admission and Anticipated Discharge Date Admission Date: September 16, 2024 Supervising Physician Co-Signing Physician Notes Attending attestation Pt seen and examined in concert with Dr. Horan. In agreement with the documented findings as noted in the resident documentation with any exceptions or additions as noted here. Overall, patient reports improvement in diffuse weakness/fatigue from presentation but with ongoing intermittent cough. Review of history shows relatively rapid onset of symptoms of lassitude in the setting of respiratory sx. On examination, S1/S2 nl RRR no MCG. decreased breath sounds at bases with some mild rales audible at the RUL that did not clear w/ cough. Abd NT/ND BS+ve Acute hypoxic respiratory failure - O2 per protocol. CTA chest to r/o PE with history of same and recent subtherapeutic INR. Will also check for PNA on imaging not seen on CXR. Continue Aztreonam and follow up cultures. SIRS with unknown source - ongoing evaluation as noted above. Atrial fibrillation, anti-cardiolipin syndrome with subtherapeutic INR - continue warfarin at present dose and monitor. Continue metoprolol CKD III - baseline Cr as noted - continue to monitor and IV hydration in the setting of contrast for CTA Else see resident documentation as noted. Subjective Patient seen at bedside this AM, notes that he initially began to feel weak/fatigued on 09/13, developed shortness of breath 09/15, diarrhea 09/16 x2 - no further diarrhea. Ceftriaxone discontinued overnight due to back rash/itchiness - patient states onset of rash preceded admission, denies h/o PCN/cephalosporin allergy. At present, denies shortness of breath. Denies fevers/chills. Review of Systems Review of Systems: as per HPI Physical Exam Physical Exam: Constitutional: no acute distress HEENT: NCAT, no conjunctival injection CV: RRR. extremities well-perfused, no LE edema Resp: no increased work of breathing, upper right lung field with coarse breath sounds, otherwise clear to auscultation GI: nondistended, mild diffuse TTP, normal bowel sounds MSK: no gross deformities Skin: warm, dry. Back mildly erythematous though without overt overlying rash Neuro: alert, oriented, no focal neurologic deficit appreciated. +speech latency. Results & Data Results & Data Vital Signs (Past 12 Hours) Vital Signs Temp Pulse Pulse Resp BP BP Pulse Ox 09/17/24 07:06 37.4 C 100 H 18 129/68 94 09/17/24 03:55 93 09/17/24 03:50 09/17/24 03:45 100 H 09/17/24 03:42 09/17/24 03:32 37.1 C 96 H 18 149/74 H 89 L 09/17/24 01:53 09/17/24 01:51 97 H 20 94 09/17/24 01:30 115/72 09/17/24 01:21 98 H 20 94 09/17/24 01:12 99 H 19 94 04/15/25 01:09 98 H 20 94 09/17/24 01:00 110/67 09/17/24 01:00 110/67 09/17/24 00:51 98 H 20 94 09/17/24 00:45 96 H 23 94 09/17/24 00:30 110/73 09/17/24 00:30 110/73 09/17/24 00:30 100 H 18 91 09/17/24 00:00 101 H 21 95 09/17/24 00:00 137/66 09/17/24 00:00 137/66 09/17/24 00:00 137/66 09/16/24 23:51 102 H 22 94 09/16/24 23:42 98 H 18 94 09/16/24 23:30 100 H 22 94 09/16/24 23:30 116/66 09/16/24 23:30 116/66 09/16/24 23:27 98 H 17 95 09/16/24 23:00 102 H 21 129/69 94 09/16/24 22:51 101 H 20 94 09/16/24 22:45 105/61 09/16/24 22:42 101 H 22 95 09/16/24 22:42 104 H 09/16/24 22:21 101 H 19 95 09/16/24 22:12 105 H 25 H 94 09/16/24 22:00 99 H 20 113/66 93 09/16/24 21:51 99 H 20 93 09/16/24 21:48 103 H 18 94 09/16/24 21:30 102 H 20 114/63 93 09/16/24 21:15 105 H 21 90 09/16/24 21:03 106 H 21 94 09/16/24 21:00 122/61 09/16/24 20:48 106 H 22 94 09/16/24 20:42 105 H 21 94 09/16/24 20:31 115/78 09/16/24 20:30 113 H 24 96 09/16/24 20:12 106 H 20 93 09/16/24 20:00 104/64 09/16/24 19:35 108/64 O2 Del Method O2 Flow Rate 09/17/24 07:06 Oxymask 3 09/17/24 03:55 Oxymask 3 09/17/24 03:50 Oxymask 3 09/17/24 03:45 09/17/24 03:42 Oxymask 09/17/24 03:32 Room Air 09/17/24 01:53 Oxymask 09/17/24 01:51 09/17/24 01:30 09/17/24 01:21 09/17/24 01:12 09/17/24 01:09 09/17/24 01:00 09/17/24 01:00 09/17/24 00:51 09/17/24 00:45 09/17/24 00:30 09/17/24 00:30 09/17/24 00:30 Nasal Cannula 6 09/17/24 00:00 09/17/24 00:00 09/17/24 00:00 09/17/24 00:00 09/16/24 23:51 09/16/24 23:42 09/16/24 23:30 09/16/24 23:30 09/16/24 23:30 09/16/24 23:27 09/16/24 23:00 Oxymask 4 09/16/24 22:51 Oxymask 4 09/16/24 22:45 09/16/24 22:42 Oxymask 4 09/16/24 22:42 09/16/24 22:21 Oxymask 4 09/16/24 22:12 Oxymask 4 09/16/24 22:00 Oxymask 4 09/16/24 21:51 Oxymask 4 09/16/24 21:48 Oxymask 4 09/16/24 21:30 Oxymask 4 09/16/24 21:15 Oxymask 4 09/16/24 21:03 Oxymask 4 09/16/24 21:00 09/16/24 20:48 Oxymask 4 09/16/24 20:42 Oxymask 4 09/16/24 20:31 09/16/24 20:30 Oxymask 4 09/16/24 20:12 Oxymask 4 09/16/24 20:00 09/16/24 19:35 Resident Activity Tracking Resident Involvement: Resident Care Provided Care Provided: Adult Hospital Medicine
[2024-09-17 07:27] LABS: BUN Creatinine Ratio 18.3 (10-20); Creatinine Clr Calc Pharmacy 42.3 ml/min; Potassium 3.9 mmol/L (3.5-5.1)
[2024-09-17] MEDS: THIAMINE HCL 100 MG TAB PO SCH (08:09)
[2024-09-17] MEDS: guaiFENesin 600 MG TABCR PO SCH (08:10)
[2024-09-17] MEDS: METOPROLOL SUCC 50MG EXT REL TAB PO SCH (08:10)
[2024-09-17] MEDS: allopurinoL 100 MG TAB PO SCH (08:10)
[2024-09-17] MEDS: predniSONE 5 MG TAB PO SCH (08:11)
[2024-09-17] MEDS: PANTOprazole 40 MG TAB PO SCH (08:11)
[2024-09-17] MEDS: PREGABALIN 50 MG CAP PO SCH (08:19)
[2024-09-17] MEDS: AZTREONAM 2,000 MG in DEXTROSE 5% MINI-B 100 ML IV SCH (10:03)
--- NOTE | 2024-09-17 11:41 | Electrocardiogram Report ---
Test Reason : Blood Pressure : */* mmHG Vent. Rate : 108 BPM Atrial Rate : 108 BPM P-R Int : 138 ms QRS Dur : 78 ms QT Int : 338 ms P-R-T Axes : 22 -55 70 degrees QTcB Int : 452 ms Sinus tachycardia with Premature atrial complexes Left axis deviation Poor R wave progression, consider anterior [place] vs. lead placement vs. LVH Abnormal ECG When compared with ECG of 17-Apr-2024 22:45, Premature atrial complexes are now Present QRS voltage has increased Criteria for Inferior infarct are no longer Present T wave inversion no longer evident in Lateral leads QT has shortened Confirmed by Prosper Andersen ([id number]) on 09/17/2024 11:41:19 AM Referred By: Confirmed By: Prosper Andersen
[2024-09-17] MEDS: OPTIRAY 320 125ml IV ONE (12:57)
--- NOTE | 2024-09-17 13:44 | CT Scan Report ---
CT angio chest PE protocol CT DOSE: 908.11 mGy.cm HISTORY: 78 years-old Male with sob, r/o PE. Acute chest pain with shortness of breath TECHNIQUE: Multiple CTA images of the chest were obtained after the intravenous administration of 119 ml Optiray. Coronal and sagittal MIPS were obtained from the axial data set and were submitted for review. All measurements were obtained according to NASCET criteria. A dose lowering technique was u tilized adhering to the principles of ALARA. COMPARISON: 08/20/[address], CT guided biopsy September 04, 2024 FINDINGS: CTA: Mild cardiomegaly. No pericardial effusion. Moderate coronary artery calcifications. Unchanged fusifo rm dilation of the ascending thoracic aorta, 4.5 x 4.47 m without dissection. Moderate atherosclerosi s. No pulmonary emboli are seen. Segmental and subsegmental branches are not well visualized secondar y to respiratory motion and contrast bolus timing. CT CHEST: Unremarkable thyroid. There are a few partially calcified mediastinal and hilar lymph nodes including a stable 1.8 x 1.3 cm right paratracheal lymph node on image 150 series 4. Trace pleural effusions. Pleural-based 2.1 x 3.6 x 0.9 cm recently biopsied lesion involving the righ t hemithorax anteriorly noted on image 89 series 4. Bronchial wall thickening with subsegmental bibas ilar atelectasis. 2.9 cm subpleural consolidative opacities in the lateral basal segment left lower l obe on image 73 series 4. Additional mild patchy subsegmental nodular consolidative opacities are not ed throughout the right upper lobe. No acute upper abdominal abnormality. Gynecomastia. Degenerative changes of the spine. Bilateral shou lder arthroplasties. IMPRESSION: 1. No pulmonary emboli identified. 2. Mild patchy left basilar and right upper lobe predominant opacities are likely infectious or infla mmatory. 3. Stable recently biopsied pleural-based lesion within the anterior right hemithorax. 4. Unchanged lymphadenopathy. ACT 112: Negative or not required by law. The above report was generated using voice recognition software. It may contain grammatical, syntax o r spelling errors. Electronically signed by: Dominick George M.D. 09/17/2024 1:42 PM
[2024-09-17] MEDS: WARFARIN SOD 7.5 MG TAB PO SCH (15:15)
[2024-09-17] MEDS: diphenhydrAMINE HCL 25 MG/10 ML UDC PO PRN (17:07)
[2024-09-17] MEDS: AMPICILLIN/SULBACTAM SOD 3,000 MG/100 ML BAG IV SCH (19:31)
[2024-09-17] MEDS ORDERED: cefTRIAXone SODIUM 2,000 MG/50 ML BAG IV SCH (21:00)
[2024-09-18 05:56] LABS: Basophils # (auto) 0.02 K/uL (0.00-0.20); Basophils % (auto) 0.3 %; Eosinophils # (auto) 0.49 K/uL (0.00-0.50); Eosinophils % (auto) 7.1 %; Hematocrit (blood only) 36.9 % (42.0-52.0); Hemoglobin 12.4 g/dl (14.0-18.0); Immature Granulocytes # (auto) 0.03 K/uL (0.01-0.20); Immature Granulocytes % (auto) 0.4 %; Lymphocytes # (auto) 1.03 K/uL (1.20-3.40); Lymphocytes % (auto) 14.9 %; Mean Corpuscular Hemoglobin 32.2 pg (25.0-34.0); Mean Corpuscular Hgb Conc 33.6 g/dL (32.0-36.0); Mean Corpuscular Volume 95.8 fL (80.0-100.0); Mean Platelet Volume 9.4 fL (9.4-12.4); Monocytes % (auto) 10.1 %; Neutrophils # (auto) 4.66 K/uL (1.40-6.50); Neutrophils % (auto) 67.2 %; Platelet Count 153 K/uL (130-400); RDW Coefficient of Variation 14.1 % (11.5-14.5); RDW Standard Deviation 49.1 fL (36.4-46.3); Red Blood Count 3.85 M/uL (4.70-6.10); White Blood Count 6.93 K/ul (4.8-10.8)
[2024-09-18 06:09] LABS: Calcium 7.6 mg/dl (8.6-10.3); Potassium 3.6 mmol/L (3.5-5.1)
[2024-09-18 06:12] LABS: INR 1.8 (0.9-1.1); Prothrombin Time 18.3 Seconds (9.0-12.0)
[2024-09-18 06:14] LABS: BUN Creatinine Ratio 22.9 (10-20); Creatinine Clr Calc Pharmacy 59.4 ml/min
--- NOTE | 2024-09-18 07:24 | Hospitalist Progress Note ---
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 #AHRF / +SIRS / Pneumonia: - Leukocytosis and tachycardia on admission, elevated procal - likely respiratory source - CXR 09/16 largely unremarkable - CTA obtained 09/17 due to new O2 requirement, tachycardia, and subtherapeutic INR - negative for PE but demonstrated RUL opacity consistent with pneumonia - Continue IV Unasyn - Blood cultures negative at 24H - Incentive spirometry - Continue PRN Duonebs, Mucinex, Tessalon perles - Continue supplemental O2 as needed to maintain SpO2>94% - Likely cause of fatigue/weakness - PT/OT eval and treat #A-fib #Anti-cardiolipin syndrome - Rate controlled - Continue home metoprolol - Continue Warfarin - Monitor PT/INR in am labs #CKD-3 - Baseline Cr of 1.3-1.5 - Downtrending, at baseline - Monitor am labs #Conjunctivitis: - Appears most consistent with allergic conjunctivitis - will trial tx with antihistamine eye drops. If no improvement, will reevaluate for possible bacterial conjunctivitis. Thoracic aortic aneurysm - Noted to be stable on previous imaging and measuring ~4.[address] from 08/20/24 - Maintain BP control with goal < 130 systolic and < 90 diastolic VTE ppx: Warfarin Admission and Anticipated Discharge Date Admission Date: September 16, 2024 Supervising Physician Co-Signing Physician Notes Attending attestation Pt seen and examined in concert with Dr. Horan. In agreement with the documented findings as noted in the resident documentation with any exceptions or additions as noted here. Ongoing improvement in diffuse weakness/fatigue and intermittent cough. On examination, S1/S2 nl RRR no MCG. decreased breath sounds at bases with some mild rales audible at the RUL that did not clear w/ cough. Abd NT/ND BS+ve Acute hypoxic respiratory failure - O2 per protocol. CTA chest neg for PE, concerning for PNA. Tolerating unasyn, transition to PO abx in AM. PT/OT. Sepsis with pulmonary source - ongoing evaluation as noted above. BCx 48 hrs this evening. Atrial fibrillation, anti-cardiolipin syndrome with subtherapeutic INR - continue warfarin at present dose and monitor. Continue metoprolol CKD III - baseline Cr as noted - continue to monitor and IV hydration in the setting of contrast for CTA Else see resident documentation as noted. Subjective Patient seen at bedside this AM, notes increasing non-productive cough since yesterday. At present, denies shortness of breath. Supplemental O2 resumed overnight, but patient denies subjective feeling of dyspnea. Denies fevers/chills. Notes concern for conjunctivitis, right eye with crusty discharge yesterday - currently both eyes are itchy. Still itchy across back and in bilateral antecubital regions. Review of Systems Review of Systems: as per HPI Physical Exam Physical Exam: Constitutional: no acute distress HEENT: NCAT, no conjunctival injection, perhaps slight increase in lacrimation, smal amount of crusty discharge just lateral to right eye CV: RRR. extremities well-perfused, no LE edema Resp: no increased work of breathing, lung sounds mildly coarse throughout GI: nondistended, normal bowel sounds MSK: no gross deformities Skin: warm, dry. Back mildly erythematous though without overt overlying rash. Antecubital region mildly erythematous/dry bilaterally Neuro: alert, oriented, no focal neurologic deficit appreciated. +speech latency. Results & Data Results & Data Vital Signs (Past 12 Hours) Vital Signs Temp Pulse Pulse Resp BP Pulse Ox O2 Del Method 09/18/24 03:04 36.5 C 75 18 117/71 92 Oxymask 09/17/24 22:55 37.0 C 72 18 109/66 96 Oxymask 09/17/24 22:25 73 09/17/24 19:25 36.3 C L 75 18 117/70 96 Oxymask O2 Flow Rate 09/18/24 03:04 3 09/17/24 22:55 3 09/17/24 22:09/17/24 19:25 3 Resident Activity Tracking Resident Involvement: Resident Care Provided Care Provided: Adult Hospital Medicine
[2024-09-18] MEDS ORDERED: HYDROCORTISONE 2.5% CR 30 GM TUBE EXT PRN (11:26)
[2024-09-18] MEDS: NAPHAZOLIN/PHENIRAMIN OPH SOLN 15 ML BTL OP SCH (17:27)
[2024-09-18] MEDS ORDERED: NAPHAZOLIN/PHENIRAMIN OPH SOLN 15 ML BTL OP SCH (21:00)
[2024-09-19 06:49] LABS: Basophils # (auto) 0.03 K/uL (0.00-0.20); Basophils % (auto) 0.4 %; Eosinophils % (auto) 7.4 %; Hematocrit (blood only) 38.3 % (42.0-52.0); Hemoglobin 12.7 g/dl (14.0-18.0); Immature Granulocytes # (auto) 0.03 K/uL (0.01-0.20); Immature Granulocytes % (auto) 0.4 %; Lymphocytes # (auto) 1.49 K/uL (1.20-3.40); Lymphocytes % (auto) 22.1 %; Mean Corpuscular Hemoglobin 31.9 pg (25.0-34.0); Mean Corpuscular Hgb Conc 33.2 g/dL (32.0-36.0); Mean Corpuscular Volume 96.2 fL (80.0-100.0); Mean Platelet Volume 9.3 fL (9.4-12.4); Monocytes # (auto) 0.63 K/uL (0.11-0.59); Monocytes % (auto) 9.4 %; Neutrophils # (auto) 4.05 K/uL (1.40-6.50); Neutrophils % (auto) 60.3 %; Platelet Count 175 K/uL (130-400); RDW Coefficient of Variation 13.6 % (11.5-14.5); RDW Standard Deviation 48.6 fL (36.4-46.3); Red Blood Count 3.98 M/uL (4.70-6.10); White Blood Count 6.73 K/ul (4.8-10.8)
[2024-09-19 07:01] LABS: INR 2.1 (0.9-1.1); Prothrombin Time 20.9 Seconds (9.0-12.0)
--- NOTE | 2024-09-19 07:08 | Hospitalist Progress Note ---
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 #AHRF / +SIRS / Pneumonia: - Leukocytosis and tachycardia on admission, elevated procal - likely respiratory source - CXR 09/16 largely unremarkable - CTA obtained 09/17 due to new O2 requirement, tachycardia, and subtherapeutic INR - negative for PE but demonstrated RUL opacity consistent with pneumonia - Continue IV Unasyn - Blood cultures negative at 24H - Incentive spirometry - Continue PRN Duonebs, Mucinex, Tessalon perles - Continue supplemental O2 as needed to maintain SpO2>94% - Likely cause of fatigue/weakness - PT/OT eval and treat #A-fib #Anti-cardiolipin syndrome - Rate controlled - Continue home metoprolol - Continue Warfarin - Monitor PT/INR in am labs #CKD-3 - Baseline Cr of 1.3-1.5 - Downtrending, at baseline - Monitor am labs #Conjunctivitis: - Appears most consistent with allergic conjunctivitis - will trial tx with antihistamine eye drops. If no improvement, will reevaluate for possible bacterial conjunctivitis. Thoracic aortic aneurysm - Noted to be stable on previous imaging and measuring ~4.[address] from 08/20/24 - Maintain BP control with goal < 130 systolic and < 90 diastolic VTE ppx: Warfarin Admission and Anticipated Discharge Date Admission Date: September 16, 2024 Subjective Patient seen at bedside this AM, notes increasing non-productive cough since yesterday. At present, denies shortness of breath. Supplemental O2 resumed overnight, but patient denies subjective feeling of dyspnea. Denies fevers/chills. Notes concern for conjunctivitis, right eye with crusty discharge yesterday - currently both eyes are itchy. Still itchy across back and in bilateral antecubital regions. Review of Systems Review of Systems: as per HPI Physical Exam Physical Exam: Constitutional: no acute distress HEENT: NCAT, no conjunctival injection, perhaps slight increase in lacrimation, smal amount of crusty discharge just lateral to right eye CV: RRR. extremities well-perfused, no LE edema Resp: no increased work of breathing, lung sounds mildly coarse throughout GI: nondistended, normal bowel sounds MSK: no gross deformities Skin: warm, dry. Back mildly erythematous though without overt overlying rash. Antecubital region mildly erythematous/dry bilaterally Neuro: alert, oriented, no focal neurologic deficit appreciated. +speech latency. Results & Data Results & Data Vital Signs (Past 12 Hours) Vital Signs Temp Pulse Pulse Resp BP Pulse Ox O2 Del Method 09/19/24 02:41 36.6 C 74 18 143/73 H 94 Room Air 09/18/24 22:30 36.6 C 76 18 133/70 92 Room Air 09/18/24 21:45 78 09/18/24 19:50 Room Air 09/18/24 19:22 36.7 C 79 18 127/75 92 Room Air
[2024-09-19 07:22] LABS: Calcium 7.6 mg/dl (8.6-10.3); Potassium 3.5 mmol/L (3.5-5.1)
[2024-09-19 07:28] LABS: BUN Creatinine Ratio 19.2 (10-20)
[2024-09-19 07:32] VITALS: O2SAT 93
[2024-09-19 11:55] VITALS: BP 127/80; PULSE 72; RESP 18; TEMP 97.7
--- NOTE | 2024-09-19 14:16 | Discharge Summary ---
Date of Service September 19, 2024 Admission HPI Per Admitting Provider Patient is a 78-year-old male with past medical history of CKD3 (baseline creatinine of 1.31.5), history of PE in 2021, melanoma, anticardiolipin syndrome, A-fib on chronic anticoagulation with warfarin (INR goal of 23), thoracic aortic aneurysm, GERD who came to the emergency department due to progressively worsening cough and shortness of breath. Patient's symptoms began on Monday (09/13/24) as decreased appetite with subsequent decreased p.o. intake and hydration, abdominal discomfort, cough, nausea without vomiting, headaches, weakness, shortness of breath, and today developed 2-3 episodes of watery stools (nonbloody). Does not believe that he had any fevers. Patient does not use oxygen at home, however, since today he was feeling especially short of breath he did use his 's oxygen and states that he did feel little bit better. Of note, patient has a history of melanoma which per [id number] who was at bedside was biopsied few weeks ago, as well as a recent procedure for biopsy of a 2.2 cm enlarging right pleural lesion on 09/04/2024. Patient has been on chronic warfarin due to A-fib in the setting of anticardiolipin syndrome for which she follows the anticoagulation clinic, however, since warfarin was held for the aforementioned procedure his INR has been subtherapeutic. Labs/Imaging: CBC with leukocytosis of 16.59 with neutrophilic predominance, hemoglobin of 15.6, platelets of 189. CMP with mild hyponatremia 135 and no other electrolyte abnormalities, creatinine 1.51 which is close to patient's baseline, blood sugar 102. INR 1.3. Lactate of 1.7. Pro-Damian of 2.68. TSH of 2.18. UA with +1 bacteria and suggestive of UTI. Chest x-ray unremarkable. Head CT with mucosal thickening in sinuses which could be suggestive of sinusitis. CTAP with cirrhosis but no other acute changes. Medical History: [Reviewed] Medications: [Reviewed] Surgical History: [Reviewed] Family history: [Reviewed] Allergies: [Reviewed] Social History: [Reviewed] Code Status: DNR/DNI Admission Exam Per Admitting Provider GENERAL: AAOx3, afebrile, calm, NAD HEAD: AT, NC EYES: JAYE, EOM intact, slight mucous discharge in right eye w/o associated conjunctival injection CHEST: symmetric chest expansions w/ respirations CARDIO: irregular rate and rhythm, no r/m/g PULMONARY: rhonchi in upper kan, no wheezing, normal respiratory effort, no respiratory distress, oxymask at 4 lpm with O2 saturation of 94% (on oxymask since patient was breathing through his mouth) GI: mildly distended, tenderness to palpation in LUQ, suprapubic region, and b/l lower quadrants (more marked in LUQ), no CVA tenderness EXTREMITIES: no swelling or calf tenderness, erythema in b/l distal lower extremities w/o warmth or tenderness, patient had bandage over anterior aspect of right LE that was removed and no open wound was present Principal Diagnosis Acute hypoxic respiratory failure Discharge Exam Constitutional: no acute distress HEENT: NCAT, no conjunctival injection, perhaps slight increase in lacrimation, smal amount of crusty discharge just lateral to right eye CV: RRR. extremities well-perfused, no LE edema Resp: no increased work of breathing, lung sounds mildly coarse throughout, improving, good resiratory effort GI: nondistended, normal bowel sounds MSK: no gross deformities Skin: warm, dry. Back mildly erythematous though without overt overlying rash. Antecubital region mildly erythematous/dry bilaterally Neuro: alert, oriented, no focal neurologic deficit appreciated. +speech latency. Discharge Data Allergies Allergy/AdvReac Type Severity Reaction Status Date / Time gabapentin Allergy Intermediate Rash Verified 09/16/24 22:42 tramadol Allergy Intermediate Rash and Verified 09/16/24 22:42 itchiness ceftriaxone Allergy Mild Rash Verified 09/18/24 17:02 hydrocodone Allergy Mild itchy Verified 09/16/24 22:42 oxycodone Allergy Mild itchy Verified 09/16/24 22:42 carbamazepine Allergy Unknown Unknown Verified 09/16/24 22:42 ciprofloxacin Allergy Unknown Unknown Verified 09/16/24 22:42 Consultations 09/16/24 21:35 ED Decision to Admit Stat Ordered Studies 09/16/24 18:47 CT head/brain wo con Stat 09/16/24 19:13 CT abd pelvis wo con Stat 09/17/24 11:52 CT angio chest PE protocol Urgent Hospital Course (1) Acute hypoxic respiratory failure: (2) Pneumonia: (3) Subtherapeutic international normalized ratio (INR): (4) Chronic kidney disease, stage 3: (5) Hypertension: (6) History of pulmonary embolism: (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 #AHRF / +SIRS / Pneumonia: - Leukocytosis and tachycardia on admission, elevated procal - likely respiratory source - CXR 09/16 largely unremarkable - CTA obtained 09/17 due to new O2 requirement, tachycardia, and subtherapeutic INR - negative for PE but demonstrated RUL opacity consistent with pneumonia - Blood cultures negative at 48H - Treated with IV Unasyn - discharged on PO Augmentin for additional 5 days #A-fib #Anti-cardiolipin syndrome - Initially subtherapeutic INR - reached therapeutic range (2.1) on day of discharge - Continue to follow with anticoagulation clinic Total Time Total Time Spent Total Time Spent (In Minutes): see attending attestation Discharge Plan Discharge Items Patient Disposition: Home - Self-Care Reason For Visit: COUGH, SOB Discharge Diagnosis: Pneumonia Activity: As commented below Activity Comment: Activity progression as tolerated. Non-emergency contact: Primary Care Provider Call non-emergency contact if: you have any medication questions, your symptoms worsen and you have a fever Follow-up/Referrals: Monique Buchanan [Primary Care Provider] - 09/23/24 1:45 pm (Primary Care follow up scheduled on 09/23/24 at 1:45 with Monique Buchanan) Diet: Low Sodium (2gm) Addtl Attending Provider Instructions: You were admitted to the hospital with pneumonia. This is likely the reason you began to feel so weak and tired. While in the hospital, you were started on a course of antibiotics. Following discharge, please finish out the course of antibiotics as outlined below. You are also encouraged to continue using the incentive spirometer that you were given. In addition, you may continue to take Mucinex as needed to help bring up phlegm. A discharge summary will be sent to your primary care physician to ensure continuity of care. Please bring this discharge summary with you to your next office appointment so that your provider can review it at that time. Medications: Your medication list has been reviewed and reconciled upon discharge to ensure accuracy and continuity of care. An updated list of all your medications is included with your hospital discharge paperwork. Please review this list closely and make note of any changes to your medications. New Medications: Augmentin: Please take 1 tablet twice daily starting in the evening on 09/19/24. - This is an antibiotic, please complete the full 5 day course following discharge. Follow up appointments: - Make a follow up appointment with your PCP within the next week. It is very important that you follow up with them shortly after discharge from the hospital. - Keep all of your follow up appointments as already scheduled. If you cannot make an appointment, notify your provider. CONTACT YOUR PRIMARY CARE PROVIDER if you experience any of the following: - Difficulty following your treatment plan - Difficulty taking any of your medications CALL 911 OR GO TO THE EMERGENCY DEPARTMENT if you experience any of the following: - Sudden, severe abdominal pain or nausea/vomiting - Severe chest pain or chest pain that radiates to your jaw or arm - Sudden, severe shortness of breath or difficulty breathing Pending Studies at Discharge: No Stand-Alone Forms: My [employer], Smoking Cessation Medications and DC Order Prescriptions: New amoxicillin-pot clavulanate 875-125 mg tablet 1 tab PO BID 5 Days Qty: 10 0RF Continued warfarin 5 mg tablet See Rx Instructions PO UD Rx Instructions: 7.5mg q Monday/, 5mg x 5 days per [facility] orally use as directed; potassium citrate 10 mEq (1,080 mg) tablet extended release 10 meq PO DAILY allopurinol 100 mg tablet 100 mg PO BID metoprolol succinate 50 mg tablet extended release 24 hr 50 mg PO QAM acetaminophen 650 mg Tablet Extended Release 650 mg PO Q4H PRN (Reason: Pain) furosemide 40 mg tablet 40 mg PO DAILY PRN (Reason: weight gain/swelling) thiamine HCl (vitamin B1) 100 mg Tablet 100 mg PO QAM Qty: 30 0RF Rx Instructions: [id number] pantoprazole [Protonix] 40 mg tablet,delayed release (DR/EC) 40 mg PO DAILY Qty: 30 0RF prednisone 5 mg Tablet 5 mg PO DAILY pregabalin 50 mg capsule 50 mg PO DAILY Discharge Orders: Discharge Order (Routine); Ordered 09/19/24 Ordered By: Jag Horan Admission Data Admit Date/Time: 09/16/24 22:59 Attending Provider: Prosper Garcia Admit Provider: Hillary Jorge Primary Care Provider: Monique Buchanan Other Providers: Asmita Riggs Other Interventions: Discharge Summary Assessment (RN) Last Done: 09/19/24 14:18 Supervising Physician Co-Signing Physician Notes Attending attestation Pt seen and examined in concert with Dr. Horan. In agreement with the documented findings as noted in the resident documentation with any exceptions or additions as noted here. Patient reports approaching respiratory and fatigue baseline without cough. On examination, S1/S2 nl RRR no MCG. decreased breath sounds at bases. Abd NT/ND BS+ve Acute hypoxic respiratory failure - O2 per protocol. CTA chest neg for PE. Complete course of concerning for PNA. To complete course with Augmentin with precautions for changing sx. Sepsis with pulmonary source - resolved, for treatment of PNA above. Atrial fibrillation, anti-cardiolipin syndrome with subtherapeutic INR - cont inue warfarin at home dose. Continue metoprolol Else see resident documentation as noted. Total attending physician time spent with this patient's care on the day of discharge: 35 minutes. Resident Activity Tracking Resident Involvement: Resident Care Provided Care Provided: Adult Hospital Medicine
--- NOTE | 2024-09-21 09:19 | Coding Query ---
SEPSIS To promote full compliance with coding requirements relating to patient care, physician participation is requested in all cases of nut dehydrator operator uncertainty. Please assist us with the question(s) below: Throughout the medical record, you have clearly documented a localized infection and your patient has clinical evidence of a generalized sepsis or severe sepsis. The term urosepsis is a nonspecific entity and is coded as an UTI. If the patient has sepsis, severe sepsis, from an urinary source or some other source, please clarify in your response below. The medical record reflects the following clinical findings: 71 y/o admitted for acute respiratory failure. SOFA score 3, tachycardia 111, respiratory rate 22.. Positive SIRS criteria. Procalcitonin 2.68. Treatment : IV antibiotics, 02, prednisone. Pt dx'd with pneumonia . Please check below if applicable, the diagnosis that was treated during this inpatient stay. Thank you. Francois Mccarthy, [facility] . ____ ( )Bacteremia (Nonspecific laboratory finding of bacteria in the blood) Specify Organism ( ) Present on Admission ( ) Not present on admission ( ) Unable to clinically determine ( ) Septicemia (Systemic disease associated with the presence of pathogenic microorganisms in the blood): Specify Organism ( ) Present on Admission ( ) Not present on admission ( ) Unable to clinically determine x) Sepsis Specify Organism No organism isolated Specify Associated Condition/Diagnosis Pneumonia (x) Present on Admission ( ) Not present on admission ( ) Unable to clinically determine ( ) Severe Sepsis (Sepsis associated with acute organ dysfunction) Specify Organism Specify Associated Condition/Diagnosis ( ) Present on Admission ( ) Not present on admission ( ) Unable to clinically determine ( ) Septic Shock (Severe sepsis with acute circulatory failure, unexplained by other causes) ( ) Present on Admission ( ) Not present on admission ( ) Unable to clinically determine ( ) Other, patient has: MTDD
== END 2024-09-19 15:55 | disposition home or self-care (01) | DRG 871 ==
LOC: ED 17:36 → EDINP 22:59 → SUATTDRO 22:59 → 2S 09-17 03:28